=== PATIENT | female | born 1945 | race Caucasian/White ===

== ENCOUNTER 2022-06-08 14:01 | Outpatient (CLI) | payer MEDICARE, OTHER, SELFPAY ==
[2022-06-08 17:10] LABS: Albumin* 4.3 g/dL (3.3-5.0)
[2022-06-08 17:11] LABS: Chloride* 108 mmol/L (96-114); Potassium* 4.4 mmol/L (3.6-5.1); Sodium* 142 mmol/L (135-149)
[2022-06-08 17:13] LABS: Bilirubin Total* 0.4 mg/dL (0.1-1.5); Carbon Dioxide* 26 mmol/L (20-32); Cholesterol* 226 mg/dL (90-199); Creatinine* 0.8 mg/dL (0.5-1.5); Estimated Glomerular Filt Rate 76 ml/min
[2022-06-08 17:14] LABS: Alanine Aminotransferase* 19 U/L (4-35); Alkaline Phosphatase* 95 U/L (40-150); Aspartate Amino Transferase* 24 U/L (12-35); Blood Urea Nitrogen* 19 mg/dL (7-30); Calcium* 9.9 mg/dL (8.4-10.6); Glucose* 92 mg/dL (60-115); Total Protein* 6.5 g/dL (6.0-8.3); Triglycerides* 200 mg/dL (40-149)
[2022-06-08 17:15] LABS: HDL Cholesterol* 48 mg/dL (>=50); LDL Cholesterol Calculated 138 mg/dL (<100)
== END 2022-06-08 14:02 | disposition home or self-care (01) ==
PROVIDERS: PCP Internal Medicine; Visit Provider Internal Medicine
DX: R00.2 Palpitations (principal); I10 Essential (primary) hypertension; E66.9 Obesity, unspecified; Z13.6 Encounter for screening for cardiovascular disorders
CPT/HCPCS: 80053; 80061; 84443

== ENCOUNTER 2022-11-17 14:30 | Outpatient (RCR) | payer MEDICARE, OTHER, SELFPAY ==
--- NOTE | 2022-11-10 08:11 | PT.OPEX ---
PT [place] Outpatient Eval PT [facility] Outpatient Eval Start: 11/09/22 13:24 Freq: Status: Active Protocol: Document 11/09/22 13:24 ENM (Rec: 11/09/22 16:38 ENM [id number]) E-signed By Alina Calloway, DPT Physical Therapy Outpatient Evaluation Insurance Information Recert Due Date 02/01/23 Insurance Name Medicare B Medical Diagnosis age related physical disability Treating Diagnosis deconditioning, impaired gait, impaired balance, decreased LE strength Referring MD Youssef Subjective Subjective Patient presents to PT for complaints of weakness and fatigue that have been present for a while. States that today she is feeling very tired and weak. Her days consist of mainly sitting as she fatigues very easily. Does have a history for MS but is not medically managed for it, she plans to bring this up to her primary care. Also reports difficulty with urinary incontinence. She reports a history of falls with her most recent one being a couple of days ago. She was putting a cover on the chair the other day and with turning she fell. Once she fell she was not able to get up and had to call her grandson to help her. She attributes her falls to being weak and feeling off balance. Does feel dizziness at times but that does not precipitate her falls. She tries to be very careful with mobility, uses a 4WW at all times. States that her feet are partially numb and she can't feel them very well. Walking and standing is very limited. Was seen by MD recently for heart palpitations and was put on atenolol for PVCs. Primary complaint is her levels of fatigue, even putting on her socks is exhausting. Her goal is to be able to get off the floor independently if she does fall. Currently lives with her daughter who is on the autism spectrum very high functioning but not able to physically assist the patient off the floor. PMHx: torn L ACL from a fall, PVCs, depression, HTN, arthritis, osteoporosis, fibromylagia. R knee replacement, lipedema, MS Current Work Status Retired Precautions Treatment Precautions/Contraindications PVC Objective Other/Pertinent Objective ROM: able to achieve figure 4 hip positioning in sitting with assist of B UE strength: 5x STS 29.39s , very poor eccentric control with sitting , heavy use of arms, slow to get all the way up hip flexors L 3+/5 R 4-/5 knee extensors 4-/5 B ankle DF 3+/5 B palpation/joint mobility: no tenderness to light touch. Sensation intact to quick screen 10/10 B but patient reporting numbness and really having to focus to perform gait/balance: Patient ambulates with slow pace, decreased foot clearance , decreased step length with use of 4WW. Patient fatigued after 50' of ambulation with SOB TUG 26.25s with 4WW Other: Patient with moderate swelling not pitting in bilateral LE over dorsum of foot/calf/ ankles Functional Test Performed & Score 5x STS 29.39s , very poor eccentric control with sitting , heavy use of warms, slow to get all the way up TUG 26.25s with 4WW Assessment Assessment/Impression Patient is a 77 year old female presenting with weakness and fatigue. Their primary complaint is of limited endurance for daily mobility and ADLS. Patient has a complex medical history that includes MS, lipedema, hx of left ACL tear treated with conservative care and fibromyalgia. Upon assessment patient displays decreased global bilateral LE strength. Functional LE strength and endurance for STS is also limited patient requiring 29. 39s to perform 5xSTS, age matched norm is 12.6s. TUG scores indicate that patient is a fall risk. She is able to tolerate 50' of ambulation with 4WW before being limited by fatigue and SOB. Heidi would greatly benefit from skilled PT to address impairments stated above in order to progress activity tolerance for performing self cares/ADLs and functional mobility. Primary Functional Limitations walking, standing, putting on socks Plan of Care Rehabilitation Potential Fair Physical Therapy Goals In 12-15 visits: 1. Patient will be IND with HEP and self management of symptoms 2. Patient will improve TUG score from 26.25 to 22.25s or less (MDC 4) to demonstrate improvements in balance/ stability 3. Patient will improve 5x STS from 29.39s to 25.39s (MDC 4s ) to demonstrate improvement in LE functional strength 4. Patient will be able to put on her socks in the morning in one attempt with self reported minimal difficulty to demonstrate improvements in ADLs 5. Patient will be able to walk 85' with 4WW and no SOB after to demonstrate improvements in ambulation tolerance Coordination/Communication With Referral Source Treatment Plan/Direct Interventions Gait Training,Joint Mobilization,Manual Therapy, Neuromuscular Re-ed,Self-Care/ Home Management,Therapeutic Activities,Therapeutic Exercises Frequency/Duration 2x a week for 6 weeks, decreasing frequency depending on progress for an additional 4-5 visits Patient Will Be Discharged From Therapy Completion of LTG(s), Independent w/HEP Evaluation Billing Untimed Code Treatment Minutes 35 Complexity Moderate Certification Information Initial Certification Date 11/09/22 Ending Certification Date 02/01/23 Provider Signature Shows Agreement With POC & Medical Necessity Physician Signature & Date Requested Please Sign/Date Here Physician Comment/Change : Physician NPI Number #
== END 2023-02-21 14:50 | disposition home or self-care (01) ==
PROVIDERS: PCP Internal Medicine; Visit Provider Internal Medicine
DX: R54 Age-related physical debility (principal); Z51.89 Encounter for other specified aftercare
CPT/HCPCS: 97110; 97162

== ENCOUNTER 2023-03-28 15:51 | Outpatient (CLI) | payer MEDICARE, OTHER, SELFPAY ==
--- NOTE | 2023-03-28 16:15 | CRLHL7_ITS ---
For Patients: As a result of the Cures Act, medical imaging exams and procedure reports are released immediately into your electronic medical record. You may view this report before your referring provider. If you have questions, please contact your health care provider. INDICATION: Followup total knee arthroplasty TECHNIQUE: Knee radiograph 4 views right COMPARISON: None FINDINGS: Bone: No acute fractures or aggressive bone lesions are identified. Moderate diffuse osteopenia is noted. Joint: The patient is status post a total knee arthroplasty with patellar resurfacing. No radiographic evidence of asymmetric polyethylene wear, prosthetic loosening or infection is seen. No significant knee effusion is seen. Soft tissue: Unremarkable. No radiopaque foreign bodies are seen. IMPRESSION: 1. There is an unremarkable appearance of the knee arthroplasty. Dictated by: Demar Nicholson MD @ 03/29/2023 12:57:36 (Electronically Signed)
--- NOTE | 2023-03-28 16:15 | CRLHL7_ITS ---
For Patients: As a result of the Century Cures Act, medical imaging exams and procedure reports are released immediately into your electronic medical record. You may view this report before your referring provider. If you have questions, please contact your health care provider. INDICATION: Followup total knee arthroplasty TECHNIQUE: Knee radiograph 1 view bilateral COMPARISON: None FINDINGS: Bone: No acute fractures or aggressive bone lesions are identified. Joint: The patient is status post a right total knee arthroplasty with patellar resurfacing. Mild joint narrowing seen in the medial and lateral compartments of the left knee. The presence of an effusion and the patellofemoral compartments cannot be assessed on frontal view. Soft tissue: Unremarkable. No radiopaque foreign bodies are seen. IMPRESSION: 1. There is an unremarkable appearance of the knee arthroplasty. Dictated by: Demar Nicholson MD @ 03/29/2023 12:58:34 (Electronically Signed)
== END 2023-03-28 15:52 | disposition home or self-care (01) ==
PROVIDERS: PCP Internal Medicine; Visit Provider Orthopaedic Surgery
DX: Z96.651 Presence of right artificial knee joint (principal)
CPT/HCPCS: 73562; 73565

== ENCOUNTER 2023-04-07 09:47 | Outpatient (CLI) | payer MEDICARE, OTHER, SELFPAY ==
--- NOTE | 2023-04-07 09:45 | CRLHL7_ITS ---
For Patients: As a result of the Cures Act, medical imaging exams and procedure reports are released immediately into your electronic medical record. You may view this report before your referring provider. If you have questions, please contact your health care provider. DIAGNOSTIC BILATERAL BREAST MAMMOGRAM WITH COMPUTER-AIDED DETECTION AND TOMOSYNTHESIS CLINICAL HISTORY: LEFT breast pain. COMPARISON: 07/08/2021, 06/30/2021. TECHNIQUE: Digital BILATERAL mammogram in 4 projections. BREAST COMPOSITION: The breasts are almost entirely fatty. FINDINGS: 3D CC/MLO BILATERAL mammogram images submitted. No suspicious masses or architectural distortion. No suspicious calcifications or adenopathy. IMPRESSION: Normal BILATERAL mammograms. No evidence of malignancy. RECOMMENDATIONS: Annual BILATERAL screening mammography. BI-RADS Category 1: Negative A lay language report of this examination will be provided to the patient. Dictated by Javier Suazo MD @ 04/07/2023 10:50:55 AM PT/Dictated by: Javier Suazo MD @ 04/07/2023 10:50:00 AM (Electronically Signed)
== END 2023-04-07 09:48 | disposition home or self-care (01) ==
LOC: MAMMO 09:48
PROVIDERS: PCP Internal Medicine; Visit Provider Internal Medicine
DX: N64.4 Mastodynia (principal)
CPT/HCPCS: 77066; G0279

== ENCOUNTER 2023-08-11 17:42 | Outpatient (REF) | payer MEDICARE, OTHER, SELFPAY ==
[2023-08-11 20:13] LABS: Basophils Absolute Auto 0.03 K/uL (0.00-0.30); Basophils Percent Auto 0.4 % (0.0-3.0); Eosinophils Absolute Auto 0.21 K/uL (0.00-0.50); Eosinophils Percent Auto 2.6 % (0.0-7.0); Hematocrit 46.7 % (33.0-51.0); Hemoglobin* 14.7 gm/dL (12.0-16.0); Immature Granulocytes Abs Auto 0.01 K/uL (0.00-0.30); Immature Granulocytes Pct Auto 0.1 %; Lymphocytes Absolute Auto 2.99 K/uL (0.90-2.90); Lymphocytes Percent Auto 36.4 % (20-44); Mean Corpuscular HGB Conc 32 gm/dL (32-36); Mean Corpuscular Hemoglobin 31 pg (26-34); Mean Corpuscular Volume 99 fL (80-100); Monocytes Percent Auto 8.8 % (0.0-11.0); Neutrophils Absolute Auto 4.26 K/uL (1.7-7.0); Neutrophils Percent Auto 51.7 % (42.0-72.0); Platelet Count* 248 K/uL (140-440); RDW Coefficient of Variation % 13.9 % (11.5-15.5); White Blood Count* 8.22 K/uL (4.50-11.00)
[2023-08-11 20:15] LABS: Albumin* 4.3 g/dL (3.3-5.0)
[2023-08-11 20:18] LABS: Alanine Aminotransferase* 31 U/L (4-35); Aspartate Amino Transferase* 32 U/L (12-35); Creatinine* 0.9 mg/dL (0.5-1.5); Estimated Glomerular Filt Rate 65 ml/min
[2023-08-11 20:49] LABS: Slide Review Reflex No
== END 2023-08-11 17:43 | disposition home or self-care (01) ==
LOC: NPINS 17:42
PROVIDERS: PCP Internal Medicine; Visit Provider Internal Medicine Rheumatology
DX: M06.9 Rheumatoid arthritis, unspecified (principal); Z79.899 Other long term (current) drug therapy
CPT/HCPCS: 80048; 82040; 82565; 84450; 84460; 85025

== ENCOUNTER 2024-02-03 12:40 | Outpatient (CLI) | payer MEDICARE, OTHER, SELFPAY ==
--- OUTSIDE RECORDS SUMMARY | 2024-02-03 12:49 | XMS_ITS | Clinical Summary ---
Author Organization [facility] Address [place], [place] [address] Care Team Providers Care Senior Accounting Manager Name Role Phone Aminata Youssef MD Primary Care Provider [phone] Allergies Active Allergy Reactions Criticality Noted Date Comments Dust Mites *Unknown - Follow up needed 05/12/2016 Milk Other - Describe In Comment Field 12/01/2018 foggy and tired Mold *Unknown - Follow up needed 05/12/2016 Unlisted Allergen (Include Detail In Comments) *Unknown - Follow up needed 05/12/2016 Trees Tree And Shrub Pollen *Unknown 11/19/2013 Medications Medication Sig Dispensed Refills Start Date End Date Status GINKGO BILOBA (GINKOBA ORAL) Twice daily Active ASCORBIC ACID (VITAMIN C ORAL) Take 4,000 mg by mouth 2 times daily. Active AMLODIPINE BESYLATE/BENAZEPRIL (AMLODIPINE 10 MG AND BENAZEPRIL 20 MG, LOTREL,) Take 1 capsule by mouth once daily. Active buPROPion (WELLBUTRIN SR) 150 mg Sustained-Release tablet Take 150 mg by mouth 2 times daily. Active MAGNESIUM OXIDE/MAG AA CHELATE (MAGNESIUM, OXIDE/AA CHELATE, ORAL) Take 1,000 mGy by mouth once daily. Active cholecalciferol, vitamin D3, 4,000 unit cap Take 1 capsule by mouth 2 times daily. Active EVENING PRIMROSE OIL (EVENING PRIMROSE ORAL) Take 1,300 mg by mouth once daily. Active folic acid 1 mg tablet Take 4 mg by mouth once daily. 05/10/2022 Active fexofenadine (JOSE EDUARDO) 180 mg tablet Take 180 mg by mouth once daily. Do not crush or chew. 0 05/31/2022 Active methotrexate (RHEUMATREX) 2.5 mg tabletIndications:Rhe umatoid arthritis of multiple sites with negative rheumatoid factor (HC) TAKE 7 TABLETS BY MOUTH ONCE WEEKLY 28 Tablet 07/08/2023 Active Active Problems Problem Noted Date Diagnosed Date Urinary incontinence 05/31/2022 Obesity with body mass index greater than 30 Hyperparathyroidism 05/31/2022 Hyperlipidemia with target LDL less than 130 Overview: Diagnosis updated by automated process. Provider to review and confirm. History of parathyroidectomy 05/31/2022 History of cholecystectomy 05/31/2022 History of section 05/31/2022 Frailty syndrome in geriatric patient 05/31/2022 Major depressive disorder, recurrent episode, mo derate 01/31/2020 Anxiety 01/31/2020 Unsteadiness on feet 12/15/2018 Age-related osteoporosis wit hout current pathological fracture 12/15/2018 Overview: Problem list name updated by automated process. Provider to review Rheumatoid arthritis 12/15/2018 Presence of right artificial knee joint 12/16/19 Palpitations 12/15/2018 Essential hypertension 12/15/2018 Gastro-esophageal reflux disease without esophag itis 12/15/2018 Encounter for other specified aftercare 12/16/19 19 Overview: Discussed advance care planning with patient; information given to patient to review. 01/19/2012 YUE (obstructive sleep apnea) 12/31/2016 Overview: Home Sleep Apnea test at wt 160lbs 12/30/2016 AHI 14.3 Idiopathic progressive polyneuropathy 10/05/2016 Xerosis of skin 05/07/2015 SK (seborrheic keratosis) 05/07/2015 Lentigines 05/07/2015 History of multiple sclerosis 05/08/2014 Hair thinning 05/08/2014 Osteoarthritis of left knee 03/29/2013 Knee pain, left 03/29/2013 Pes anserine bursitis, bilateral 03/29/2013 Right knee pain 03/29/2013 Hypercalcemia 01/19/2012 Difficulty in walking(719.7) 03/30/2011 OA (osteoarthritis) of knee, right 07/28/2010 ACL tear, left knee 07/28/2010 Overview: Has elected to treat conservatively for time being Sprain of MCL (medial collateral ligament) of le ft knee 07/28/2010 Resolved Problems Problem Noted Date Diagnosed Date Resolved Date Medial meniscus tear, left knee 07/28/2010 01/20/2012 Overview: Has elected to treat conservatively for time being, can consider surgery if symptomatic Family History Medical History Relation Name Comments Cancer Father brain cancer Heart Disease Mother Hypertension Mother Thyroid Disease Mother hypothyroid Relation Name Status Comments Father Mother Social History Tobacco Use Types Packs/Day Years Used Date Smoking Tobacco: Former Smokeless Tobacco: Never Tobacco Cessation:Counseling Given: Yes Comments:smoked a few years while in college Alcohol Use Standard Drinks/Week Comments No 0 (1 standard drink = 0.6 oz pur e alcohol) Social Connections Answer Date Recorded Frequency of Communication with Friends and Fami ly Not on file 05/31/2022 Sex and Gender Information Value Date Recorded Sex Assigned at Not on file Gender Identity Not on file Sexual Orientation Not on file Obstetrics History Last Filed Vital Signs Vital Sign Reading Time Taken Comments Blood Pressure 128/75 05/31/2022 12:55 PM CDT Pulse 92 05/31/2022 12:55 PM CDT Temperature 36.4 ??C (97.6 ??F) 09/01/2016 9:00 AM CS T Respiratory Rate 16 09/01/2016 10:42 AM PICKLER HELPER Oxygen Saturation 96% 05/31/2022 12:55 PM CDT Inhaled Oxygen Concentration - - Weight 89.4 kg (197 lb) 05/31/2022 12:55 PM CDT w/ shoes Height 166.4 cm (5' 5.5) 08/31/2016 9:57 AM PICKLER HELPER Body Mass Index 32.28 08/31/2016 9:57 AM PICKLER HELPER Plan of Treatment Health Maintenance Due Date Last Done Comments Tdap 1955 Depression screening for age 12+ 1956 BMI (ht and wt on same day) for age 18+ 1962 Hepatitis C screening for ag e 18-79 1962 Zoster (shingles) series for age 50+ (1 of 2) 1963 Tetanus booster 1964 DEXA/DXA scan for age 65+ 2009 Medicare Wellness for age 65+ 2009 Pneumococcal series for age 65+ (1 of 1 - PCV) 2009 COVID-19 vaccine series (2022-24 season) 2023 05/30/2022, 01/24/2022, 05/12/2021, Additional history exists Influenza for age 65+ 04/08/2024 Medical Devices Implanted Type Area Ground Water Pump Installer Device Identifier Shelf Expiration Date Model / Serial / Lot Lens Iol Zcb00 17.0 - [id number] Implanted:Qty: 1 on 05/14/2016 by Kiran Chase MD at [facility] Left: [employer] 12/17/2019 ZCB00# / [id number] / Iol [place] +17.5 Tecnis Zcb00 - [id number] Implanted:Qty: 1 on 09/01/2016 by Kiran Chase MD at [facility] Right: [employer] 05/02/2020 ZCB00# / [id number] / Advance Directives * Full Code (Latest Code Status on File) Date Activated Date Inactivated Comments 09/01/2016 8:43 AM 09/01/2016 1:26 PM Question Answer Comments Code Status Discussion: Not Discussed * Full Code Date Activated Date Inactivated Comments 05/14/2016 9:47 AM 05/14/2016 2:50 PM Question Answer Comments Code Status Discussion: Not Discussed Care Teams Senior Accounting Manager Relationship Specialty Start Date End Date Aminata Youssef MD [address] [place] [id number] PCP - General Internal Medicine 05/27/21
--- OUTSIDE RECORDS SUMMARY | 2024-02-03 12:50 | XMS_ITS | Encounter Summary ---
Author Organization [facility] Address [address] [place] [address] Care Team Providers Care Vegetable Tier Name Role Phone Bettye Gonzales MD Unavailable + Bonny Cooley MD Primary Care Provider [phone] Antony Chakraborty MD Unavailable Mateo Cheema MD Unavailable Ermias Colón MD Unavailable Pam Hernandez MD Unavailable Jaime Grover MD Unavailable Toni Sheth MD Unavailable [phone] Bertram Elizabeth MD Unavailable Bonny Cooley MD Unavailable [phone] Aminata Youssef MD Primary Care Provider Bertram Elizabeth MD Unavailable [phone] Alex Johnson MD Unavailable [phone] Bonny Cooley MD Unavailable [phone] Bertram Elizabeth MD Unavailable Bertram Elizabeth MD Unavailable Encounter Details Date Type Department Care Team (Late st Contact Info) Description 09/23/2020 [facility] Medical Advice [facility] [address] [id number] Toni Del Angel MD [address] [place] [address] Social History Tobacco Use Types Packs/Day Years Used Date Smoking Tobacco: Former Cigarettes 2 3 0 04/23/1976 - 12/17/1977 Smokeless Tobacco: Never Alcohol Use Standard Drinks/Week Comments No 0 (1 standard drink = 0.6 oz pur e alcohol) PHQ-2 Answer Date Recorded PHQ-2 Score 4 01/31/2020 Sex and Gender Information Value Date Recorded Sex Assigned at Female 08/28/2018 12:23 AM ENROLLMENT SPECIALIST Gender Identity Female 08/28/2018 12:23 AM ENROLLMENT SPECIALIST Sexual Orientation Straight 10/11/2019 2: 51 PM ENROLLMENT SPECIALIST documented as of this encounter Plan of Treatment Not on file documented as of this encounter Visit Diagnoses Not on filedocumented in this encounter Additional Health Concerns Assessment Noted Time PHQ-9 Depression Total Score: 11 020 2:18 PM CDT documented as of this encounter Care Teams Vegetable Tier Relationship Specialty Start Date End Date Bonny Cooley MD [address] [place] [address] PCP - General Family Practice 09/30/15 06/02/21 Aminata Youssef MD [facility] [address] [place] [address] PCP - General Internal Medicine 06/03/21 Bettye Gonzales MD Internal Medicine 04/10/15 Antony Chakraborty MD [address] [address] INTERNAL MEDICINE - ENDOCRINOLOGY, DIABETES & METABOLISM 11/13/15 Mateo Cheema MD [address] [address] Internal Medicine 08/06/16 Ermias Colón MD [address] [address] Referring Physician Neurology 09/23/16 Pam Hernandez MD [address] [place] [address] [address] [place], [place] [address] Assigned Behavioral Health Provider 05/30/20 08/01/21 Jaime Grover MD [address] [place] [address] Assigned Gastroenterology Provider 05/30/20 11/14/21 Toni Sheth MD [address] [address] Assigned Surgical Provider 05/30/2006/28 Bertram Elizabeth MD [address] [id number] Assigned PCP 07/27/20 04/25/21 [place] [address] [place] [address] [address] [place], [place] [id number] Assigned PCP 04/26/21 08/15/21 Bertram Elizabeth MD [address] [place] [address] Assigned PCP 08/16/21 10/24/21 Alex Johnson MD [address] [place] [address] Assigned Rheumatology Provider 10/18/21 04/15/23 Bonny Cooley MD [address] [place] [address] Assigned PCP 10/25/21 04/02/22 Bertram Elizabeth MD [address] [place] [address] Assigned PCP 04/03/22 07/23/22 Bertram Elizabeth MD [address] [place] [address] Assigned PCP 10/02/22 04/29/23 documented as of this encounter
--- OUTSIDE RECORDS SUMMARY | 2024-02-03 12:50 | XMS_ITS | Encounter Summary ---
Author Organization [facility] Address [address] [place] [address] Care Team Providers Care Asw Specialist Name Role Phone Bettye Gonzales MD Unavailable + Bonny Cooley MD Primary Care Provider [phone] Antony Chakraborty MD Unavailable Mateo Cheema MD Unavailable [phone] Ermias Colón MD Unavailable Bonny Cooley MD Unavailable Pam Hernandez MD Unavailable [phone] Lázaro Horowitz MD Unavailable Jaime Grover MD Unavailable Toni Sheth MD Unavailable [phone] Toni Sheth MD Unavailable [phone] Bertram Elizabeth MD Unavailable Bonny Cooley MD Unavailable [phone] Aminata Youssef MD Primary Care Provider Bertram Elizabeth MD Unavailable [phone] Alex Johnson MD Unavailable [phone] Bonny Cooley MD Unavailable [phone] Bertram Elizabeth MD Unavailable Bertram Elizabeth MD Unavailable [phone] Encounter Details Date Type Department Care Team (Late st Contact Info) Description 07/04/2020 [facility] [address] [address] Jaime Grover MD [address] [place] [address] Social History Tobacco Use Types Packs/Day Years Used Date Smoking Tobacco: Former Cigarettes 2 3 0 04/23/1976 - 12/17/1977 Smokeless Tobacco: Never Alcohol Use Standard Drinks/Week Comments No 0 (1 standard drink = 0.6 oz pur e alcohol) PHQ-2 Answer Date Recorded PHQ-2 Score 4 01/31/2020 Sex and Gender Information Value Date Recorded Sex Assigned at Female 08/28/2018 12:23 AM ORDERLIES TEACHER Gender Identity Female 08/28/2018 12:23 AM ORDERLIES TEACHER Sexual Orientation Straight 10/11/2019 2: 51 PM ORDERLIES TEACHER COVID-19 Exposure Response Date Recorded In the last month, have you been in contact with someone who was confirmed or suspected to have Coronavirus / COVID-19? No / Unsure 06/23/2020 10:33 AM ORDERLIES TEACHER documented as of this encounter Plan of Treatment Not on file documented as of this encounter Visit Diagnoses Not on filedocumented in this encounter Additional Health Concerns Infection Onset Date Last Indicated Resolved Time COVID-19 06/23/2020 06/23/2020 07/14/2020 11:4 0 PM ORDERLIES TEACHER Recovered COVID 07/08/2020 07/08/2020 09/21/2020 1 1:39 PM ORDERLIES TEACHER Assessment Noted Time PHQ-9 Depression Total Score: 11 020 2:18 PM CDT documented as of this encounter Care Teams Asw Specialist Relationship Specialty Start Date End Date Bonny Cooley MD [address] [place] [address] PCP - General Family Practice 09/30/15 06/02/21 Aminata Youssef MD [facility] [address] [place] [address] PCP - General Internal Medicine 06/03/21 Bettye Gonzales MD Internal Medicine 04/10/15 Antony Chakraborty MD [address] [address] INTERNAL MEDICINE - ENDOCRINOLOGY, DIABETES & METABOLISM 11/13/15 Mateo Cheema MD [address] [address] Internal Medicine 08/06/16 Ermias Colón MD [address] [address] Referring Physician Neurology 09/23/16 Bonny Cooley MD [address] [address] Assigned PCP 10/05/15 07/26/20 Pam Hernandez MD [address] [facility] [place] [address] Assigned Behavioral Health Provider 05/30/20 08/01/21 UdLázaro martínez MD [facility] [address] [place] [address] Assigned Rheumatology Provider 05/30/20 07/19/20 Jaime Grover MD [address] [place] [address] Assigned Gastroenterology Provider 05/30/20 11/14/21 Toni Sheth MD [address] [id number] Assigned Pediatric Specialist Provider 05/30/20 09/07/20 Toni Sheth MD [address] 720235 Assigned Surgical Provider 05/30/2006/28 [place] [address] [place] [address] [id number] Assigned PCP 07/27/20 04/25/21 [place] [address] [place] [address] [id number] Assigned PCP 04/26/21 08/15/21 [place] [address] [place] [address] [id number] Assigned PCP 08/16/21 10/24/21 Alex Johnson MD [address] [place] [address] [id number] Assigned Rheumatology Provider 10/18/21 04/15/23 Bonny Cooley MD [address] [place] [address] Assigned PCP 10/25/21 04/02/22 [place] [address] [place] [address] Assigned PCP 04/03/22 07/23/22 [place] [address] [place] [address] Assigned PCP 10/02/22 04/29/23 documented as of this encounter
--- OUTSIDE RECORDS SUMMARY | 2024-02-03 12:50 | XMS_ITS | Encounter Summary ---
Author Organization [facility] Address [address] [place] [address] Care Team Providers Care Breaster Name Role Phone Bettye Gonzales MD Unavailable + Bonny Cooley MD Primary Care Provider [phone] Antony Chakraborty MD Unavailable Mateo Cheema MD Unavailable [phone] Ermias Colón MD Unavailable Bonny Cooley MD Unavailable [phone] Pam Hernandez MD Unavailable [phone] Lázaro Horowitz MD Unavailable Jaime Grover MD Unavailable Toni Sheth MD Unavailable [phone] Toni Sheth MD Unavailable [phone] Bertram Elizabeth MD Unavailable Bonny Cooley MD Unavailable [phone] Aminata Youssef MD Primary Care Provider [phone] Bertram Elizabeth MD Unavailable Alex Johnson MD Unavailable Bonny Cooley MD Unavailable [phone] Bertram Elizabeth MD Unavailable Bertram Elizabeth MD Unavailable Encounter Details Date Type Department Care Team (Late st Contact Info) Description 07/02/2020 [facility] [address] 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 No / Unsure 06/23/2020 10:33 AM GRINDING MACHINE OPERATOR PORTABLE documented as of this encounter Plan of Treatment Not on file documented as of this encounter Visit Diagnoses Not on filedocumented in this encounter Additional Health Concerns Infection Onset Date Last Indicated Resolved Time COVID-19 06/23/2020 06/23/2020 07/14/2020 11:4 0 PM GRINDING MACHINE OPERATOR PORTABLE Recovered COVID 07/08/2020 07/08/2020 09/21/2020 1 1:39 PM GRINDING MACHINE OPERATOR PORTABLE Assessment Noted Time PHQ-9 Depression Total Score: 11 020 2:18 PM CDT documented as of this encounter Care Teams Breaster Relationship Specialty Start Date End Date Bonny Cooley MD [address] [place], [place] [phone] PCP - General Family Practice 09/30/15 06/02/21 Aminata Youssef MD [facility] [address] [place] [address] PCP - General Internal Medicine 06/03/21 Bettye Gonzales MD Internal Medicine 04/10/15 Antony Chakraborty MD [address] [address] INTERNAL MEDICINE - ENDOCRINOLOGY, DIABETES & METABOLISM 11/13/15 Mateo Cheema MD [address] 174005 Internal Medicine 08/06/16 Ermias Colón MD [address] [address]36[address] Referring Physician Neurology 09/23/16 Bonny Cooley MD [address] [phone] Assigned PCP 10/05/15 07/26/20 Pam Hernandez MD [address] [place] [address] [address] [place] 640271 Assigned Behavioral Health Provider 05/30/20 08/01/21 Lázaro Horowitz MD [facility] [address] [place], [place] [address] Assigned Rheumatology Provider 05/30/20 07/19/20 Jaime Grover MD [address] [place] [address] Assigned Gastroenterology Provider 05/30/20 11/14/21 Toni Sheth MD [address] [address] Assigned Pediatric Specialist Provider 05/30/20 09/07/20 Toni Sheth MD [address] [address] Assigned Surgical Provider 05/30/2006/28 Bertram Elizabeth MD [address] [place] [address] Assigned PCP 07/27/20 04/25/21 Bonny Cooley MD [address] [place] [address] Assigned PCP 04/26/21 08/15/21 Bertram Elizabeth MD [address] [place] [address] Assigned PCP 08/16/21 10/24/21 Alex Johnson MD [address] [place] [address] Assigned Rheumatology Provider 10/18/21 04/15/23 Bonny Cooley MD [address] [place] [address] Assigned PCP 10/25/21 04/02/22 Bertram Elizabeth MD [address] [place] [address] Assigned PCP 04/03/22 07/23/22 Bertram Elizabeth MD [address] [place] [address] Assigned PCP 10/02/22 04/29/23 documented as of this encounter
--- OUTSIDE RECORDS SUMMARY | 2024-02-03 12:50 | XMS_ITS | Referral Summary ---
Author Organization [facility] Address [address] [place] [address] Care Team Providers Care Asparagus Cutter Name Role Phone Bettye Gonzales MD Unavailable + Antony Chakraborty MD Unavailable Mateo Cheema MD Unavailable Ermias Colón MD Unavailable Aminata Youssef MD Primary Care Provider Encounters Date Type Department Care Team Description 12/13/2023 MyC Medical Advice [facility] [address] [address] [facility] 12/13/2023 Telephone [facility] [address] [address] Alex Johnson MD Call To Schedule Appointment from Last 3 Months Allergies Active Allergy Reactions Criticality Noted Date Comments Dust Mites 11/19/2013 Milk (Cow) Other (See Comments) 12/01/2018 foggy and tired Mold 11/19/2013 Pollen Extract 12/01/2018 Other reaction(s): Headache Trees 11/19/2013 Medications Medication Sig Dispensed Refills Start Date End Date Status Evening [place] Oil CAPS Take 1,300 mg by mouth 2 times daily. Active Glucosamine-Chondroi t-Vit C-Mn (GLUCOSAMINE-CHONDRO ITIN) TABS Take 1,500 mg by mouth 2 times daily. 200 Chrondrointin. Active fish oil-omega-3 fatty acids (OMEGA 3) 1000 MG capsule Take by mouth See Admin Instructions. DHA 900mg/EPA 180mg daily Active Cholecalciferol (VITAMIN D-3 PO) Take 4,000 mg by mouth 2 times daily. Active MAGNESIUM OXIDE PO Take 500 mgy by mouth 2 times daily Active NONFORMULARY Takes MElaleuca vitality total multi vit twice daily (130 mg) Active order for DMEIndications:Idiop athic progressive polyneuropathy Equipment being ordered: Single end Folding cane. 1 each 10/12/2016 Active order for DMEIndications:Ortho static hypotension Equipment being ordered: SUDARSHAN stockings 20-30 mmHG 1 Device 02/24/2018 Active order for DMEIndications:Lymph edema of both lower extremities Equipment being ordered: knee high or thigh high compression stockings, 15-20, 20-30 or 30-40 mmgh, night time bandaging compression alternative, compression bandaging supplies 4 each 4 05/12/2018 Active GINKGO BILOBA EXTRACT PO Take 1 tablet by mouth daily Active Cranberry 1000 MG CAPS Take 1,000 mg by mouth 2 times daily Active Selenium 200 MCG CAPS Take 200 mcg by mouth 2 times daily Active Multiple Vitamins-Minerals (ZINC PO) Take 1 tablet by mouth 2 times daily Active vitamin C (ASCORBIC ACID) 1000 MG TABS Take 1,000 mg by mouth 2 times daily Active celecoxib (CELEBREX) 100 MG capsuleIndications:O steoarthritis, unspecified osteoarthritis type, unspecified site TAKE ONE CAPSULE BY MOUTH EVERY EVENING 90 capsule 04/07/2020 Active Additional Information Patient not taking.Reported on 10/09/2021 nystatin (MYCOSTATIN) [id number] UNIT/GM external powderIndications:In tertrigo Apply topically 2 times daily as needed 60 g 04/11/2020 Active triamcinolone (KENALOG) 0.1 % pasteIndications:Can ker sores oral Take by mouth 2 times daily For up to a week. 5 g 04/23/2020 Active FLUoxetine (PROZAC) 20 MG capsuleIndications:M tab depressive disorder, recurrent episode, moderate (H) Take 1 capsule (20 mg) by mouth daily 90 capsule 1 11/11/2020 Active amLODIPine-benazepri l (LOTREL) 10-20 MG capsuleIndications:E ssential hypertension with goal blood pressure less than 140/90 TAKE ONE CAPSULE BY MOUTH DAILY 60 capsule 12/03/2020 Active buPROPion (WELLBUTRIN XL) 300 MG 24 hr tabletIndications:Divina tillman depressive disorder, recurrent episode, moderate (H) TAKE ONE TABLET BY MOUTH EVERY MORNING 90 tablet 12/09/2020 Active leucovorin (WELLCOVORIN) 5 MG tabletIndications:Rh eumatoid arthritis of multiple sites without rheumatoid factor (H) Take 1 tablet (5 mg) by mouth every 7 days Take the day after taking Methotrexate every week. For additional refills, please schedule a follow-up appointment at [phone] 12 tablet 01/27/2021 Active Additional Information Patient not taking.Reported on 10/09/2021 folic acid (FOLVITE) 1 MG tabletIndications:Rh eumatoid arthritis of multiple sites without rheumatoid factor (H) Take 4 tablets (4 mg) by mouth daily Please call to schedule follow-up with Dr Johnson. Thank you 360 tablet 07/13/2023 Active methotrexate 2.5 MG tabletIndications:Rh eumatoid arthritis of multiple sites without rheumatoid factor (H) Take 7 tablets (17.5 mg) by mouth every 7 days TAKE 7 TABLETS BY MOUTH EVERY WEEK - Oral 28 tablet 4 10/24/2023 Active Active Problems Problem Noted Date Diagnosed Date Major depressive disorder, recurrent episode, mo derate 01/31/2020 Anxiety 01/31/2020 Rhe[facility]oid [facility] without rheumatoid factor 04/12/2017 YUE (obstructive sleep apnea) 12/31/2016 Overview: Home Sleep Apnea test at wt 160lbs 12/30/2016 AHI 14.3 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 Provider to review Hypercalcemia 01/19/2012 ACL (anterior cruciate ligament) tear 10/24/2009 Gait difficulty 10/24/2009 Hyperparathyroidism (H24) Depression, major, recurrent (H24) Hypertension goal BP (blood pressure) < 140/90 Hyperlipidemia with target LDL less than 130 Overview: Diagnosis updated by automated process. Provider to review and confirm. Resolved Problems Problem Noted Date Diagnosed Date Resolved Date NO SHOW 03/06/2013 07/23/2013 Advanced directives, counseling/discussion 01/19/2012 01/23/2024 Overview: Discussed advance care planning with patient; information given to patient to review. 01/19/2012 Metatarsal fracture 10/08/2008 04/01/20 09 Hyperlipidemia LDL goal <160 07/05/2012 Immunizations Name Administration Dates Next Due Influenza (H1N1) 08/14/2009 Influenza (High Dose) 3 valent vaccine 9,08/07/2018,05/01/2015 Influenza (IIV3) PF 06/25/2008 Influenza Vaccine 65+ (Fluzone HD) 05/16/2020 Pneumo Conj 13-V (2010&after) 12/21/2017 Pneumococcal 23 valent 05/12/2011 TDAP Vaccine (Adacel) 12/21/2017 Zoster vaccine, live 05/12/2011 Social History Tobacco Use Types Packs/Day Years Used Date Smoking Tobacco: Former Cigarettes 2 3 0 04/23/1976 - 12/17/1977 Smokeless Tobacco: Never Tobacco Cessation:Counseling Given: Yes Alcohol Use Standard Drinks/Week Comments No 0 (1 standard drink = 0.6 oz pur e alcohol) PHQ-2 Answer Date Recorded PHQ-2 Score 4 01/31/2020 Adolescent Education Answer Date Record ed Getting School Help Needed Not on file 05/24 Sex and Gender Information Value Date Recorded Sex Assigned at Female 08/28/2018 12:23 AM [facility]OS[facility]ITAL [employer]ES [employer] ASSISTANT[employer] TEACHER Gender Identity Female 08/28/2018 12:23 AM [facility]ITAL [employer] ASSIST[employer] TEACHER Sexual Orientation Straight 10/11/2019 2: 51 PM H[facility]ITAL [employer] ASSIST[employer] TEACHER Last Filed Vital Signs Vital Sign Reading Time Taken Comments Blood Pressure 135/69 07/08/2020 10:47 AM [facility] [employer] ASSIST[employer] TEACHER Pulse 80 07/08/2020 10:47 AM [facility]ITAL [employer]ES [employer] ASSISTANTS TEACHER Temperature 37 ??C (98.6 ??F) 04/23/2020 4:29 PM CDT Respiratory Rate 25 07/08/2020 10:05 AM [facility]OS[facility]ITAL [employer]ES AND ASSISTANTS TEACHER Oxygen Saturation 98% 07/08/2020 10:49 AM [facility] [employer] AND ASSIST[employer]S TEACHER Inhaled Oxygen Concentration - - Weight 81.6 kg (180 lb) 05/14/2020 2:51 PM CDT Height 166.4 cm (5' 5.5) 05/14/2020 2:51 PM CDT Body Mass Index 29.5 05/14/2020 2:51 PM CDT Plan of Treatment Not on file Procedures Procedure Name Priority Date/Time Associated Diagnosis Comments COLONOSCOPY Routine 07/08/2020 8:56 AM H[facility]ITAL [employer] ASSIST[employer] TEACHER COMPREHENSIVE METABOLIC PANEL Routine 07/24/2019 3:29 PM H[facility] [employer] ASSIST[employer] TEACHER Other fatigue MA SCREENING DIGITAL BILATERAL Routine 08/16/2018 11:45 AM [facility] [employer] ASSIST[employer] TE[employer]ER Encounter for screening mammogram for breast cancer LIPID PROFILE Routine 12/21/2017 1:42 PM CDT Hyperlipidemia with target LDL less than 130 HEPATITIS C ANTIBODY Routine 04/12/2017 2:46 PM CDT Rheumatoid arthritis of multiple sites without rheumatoid factor (H) DX BONE DENSITY Routine 12/10/2016 5:01 PM CDT Osteoporosis from Last 3 Months or Most Recently Relevant to Health Maintenance Results * COLONOSCOPY (07/08/2020 8:56 AM HOSPITAL A[employer]ES AND ASSISTANTS TEACHER) [facility], [address] [address] [phone] ? Endoscopy Department Patient Name: Lowell Miller ?Procedure Date: 07/08/2020 8:56 AM ? Date of : 1945 ? Admit Type: Outpatient Age: 74 ? Room: #3 Gender: Female ?Note Status: Finalized Attending MD: Jaime Grover MD ?Total Sedation Time: Procedure: ? Colonoscopy Indications: ? Rectal bleeding, Constipation Providers: ? Jaime Grover MD Referring MD: ?Bonny Cooley Requesting Provider: Bonny Cooley Medicines: ? Midazolam 4 mg IV, Fentanyl 200 micrograms IV Complications: ? No immediate complications. Procedure: ? Pre-Anesthesia Assessment: ? - Prior to the procedure, a History and Physical was ? performed, and patient medications and allergies were ? reviewed. The patient is competent. The risks and ? benefits of the procedure and the sedation options and ? risks were discussed with the patient. All questions ? were answered and informed consent was obtained. Patient ? identification and proposed procedure were verified by ? the physician in the pre-procedure area. Mental Status ? Examination: alert and oriented. Airway Examination: ? normal oropharyngeal airway and neck mobility. ? Respiratory Examination: clear to auscultation. CV ? Examination: normal. Prophylactic Antibiotics: The ? patient does not require prophylactic antibiotics. Prior ? Anticoagulants: The patient has taken no previous ? anticoagulant or antiplatelet agents. ASA Grade ? Assessment: II - A patient with mild systemic disease. ? After reviewing the risks and benefits, the patient was ? deemed in satisfactory condition to undergo the ? procedure. The anesthesia plan was to use moderate ? sedation / analgesia (conscious sedation). Immediately ? prior to administration of medications, the patient was ? re-assessed for adequacy to receive sedatives. The heart ? rate, respiratory rate, oxygen saturations, blood ? pressure, adequacy of pulmonary ventilation, and ? response to care were monitored throughout the ? procedure. The physical status of the patient was ? re-assessed after the procedure. ? After obtaining informed consent, the colonoscope was ? passed under direct vision. Throughout the procedure, ? the patient's blood pressure, pulse, and oxygen ? saturations were monitored continuously. The Colonoscope ? was introduced through the anus and advanced to the ? cecum, identified by appendiceal orifice and ileocecal ? valve. The colonoscopy was performed without difficulty. ? The patient tolerated the procedure well. The quality of ? the bowel preparation was good (after lavage and ? aspiration). ? Findings: ? Hemorrhoids were found on perianal exam. ? A few medium-mouthed diverticula were found in the sigmoid colon. ? Non-bleeding internal hemorrhoids were found during retroflexion. The ? hemorrhoids were small. ? The exam was otherwise without abnormality on direct and retroflexion ? views. ? Moderate Sedation: ? Moderate (conscious) sedation was administered by the endoscopy nurse ? and supervised by the endoscopist. The patient's oxygen saturation, ? heart rate, blood pressure and response to care were monitored. Total ? physician intraservice time was 23 minutes. Impression: ?- Hemorrhoids found on perianal exam. ? - Diverticulosis in the sigmoid colon. ? - Non-bleeding internal hemorrhoids. ? - The examination was otherwise normal on direct and ? retroflexion views. ? - No specimens collected. ? - Rectal bleeding was likely related to hemorrhoids or ? other outlet bleeding in setting of constipation (now ? improved with bowel regimen). Recommendation: ?- Discharge patient to home (with escort). ? - Resume previous diet. ? - Continue present medications. ? - Given age she likely does not require a repeat ? colonoscopy in 10 years. ? __ Jaime Grover MD 07/08/2020 9:58:41 AM I was physically present for the entire viewing portion of the exam. Signature of teaching physician [id number] Grover MD Number of Addenda: 0 Note Initiated On: 07/08/2020 8:56 AM Scope In: Scope Out: RADIOLOGY RESULTS 07/08/2020 8:56 AM H[facility]ITAL [employer] ASSIST[employer] TEACHER Bonny Cooley MD PROCEDURES RADIOLOGY RESULTS * (ABNORMAL) Comprehensive metabolic panel (BMP + Alb, Alk Phos, ALT, AST, Total. Bili, TP) (07/24/2019 3:29 PM HOSPITAL [employer]ES AND ASSISTANTS TEACHER) Sodium 143 133 - 144 mmol/L 07/25/2019 9:58 AM H[facility]ITAL [employer] AND ASSISTANTS TEACHER [facility] Potassium 4.5 3.4 - 5.3 mmol/L 07/25/2019 9:58 AM [facility] Chloride 112(H) 94 - 109 mmol/L 07/25/2019 9:58 AM [facility] Carbon Dioxide 24 20 - 32 mmol/L 07/25/2019 10:31 AM [facility] Anion Gap 7 3 - 14 mmol/L 07/25/2019 10:31 AM [facility] Glucose 92 70 - 99 mg/dL 07/25/2019 10:31 AM [facility] Comment:Non Fasting Urea Nitrogen 19 7 - 30 mg/dL 07/25/2019 10:31 AM [facility] Creatinine 0.80 0.52 - 1.04 mg/dL 07/25/2019 10:31 AM [facility] GFR Estimate 72 >60 mL/min/{1 .73_m2} 07/25/2019 10:31 AM [facility] Comment: Non GFR Calc Starting 07/25/2018, serum creatinine based estimated GFR (eGFR) will be calculated using the Chronic Kidney Disease Epidemiology Collaboration (CKD-EPI) equation. GFR Estimate If Black 84 >60 mL/min/{1 .73_m2} 07/25/2019 10:31 AM [facility] Comment: GFR Calc Starting 07/25/2018, serum creatinine based estimated GFR (eGFR) will be calculated using the Chronic Kidney Disease Epidemiology Collaboration (CKD-EPI) equation. Calcium 9.9 8.5 - 10.1 mg/dL 07/25/2019 10:31 AM [facility] Bilirubin Total 0.3 0.2 - 1.3 mg/dL 07/25/2019 10:36 AM [facility] Albumin 3.8 3.4 - 5.0 g/dL 07/25/2019 10:36 AM [facility] Protein Total 6.8 6.8 - 8.8 g/dL 07/25/2019 10:36 AM [facility] Alkaline Phosphatase 97 40 - 150 U/L 07/25/2019 10:36 AM [facility] ALT 34 0 - 50 U/L 07/25/2019 10:36 AM [facility] [employer] ASSIST[employer] TE[employer]ER [facility] AST 21 0 - 45 U/L 07/25/2019 10:36 AM [facility] [employer]IST[employer] TE[employer]ER [facility] Blood specimen (specimen) 07/24/2019 3:29 PM [facility] [employer] ASSISTANT[employer] TEACHER 07/24/2019 3:30 PM [facility] ASSIST[employer] TE[employer]ER Bonny Cooley MD LAB - BLOOD ORDERABL ES [facility] [address] [place] [address] * *MA Screening Digital Bilateral (08/16/2018 11:45 AM HOSPITAL [employer] ASSISTANTS TEACHER) Anatomical Region Laterality Modality Breast Bilateral Mammography Impressions 08/17/2018 10:40 AM [facility]ITAL [facility] ASSIST[employer] TEACHER IMPRESSION: BI-RADS CATEGORY: 1 - ??NEGATIVE. RECOMMENDED FOLLOW-UP: Annual Mammography. The patient will be notified of the results. I have personally reviewed the examination and initial interpretation and I agree with the findings. YOSEPH PERALTA MD Narrative 08/17/2018 10:40 AM [facility] [employer] ASSIST[employer] TEACHER Examination: Bilateral digital screening mammography with computer aided detection. History: No symptoms, routine screening. Comparison: Diagnostic mammogram 05/09/2015. Screening mammogram 05/07/2015. BREAST DENSITY: Scattered fibroglandular densities.. Findings: No significant change. Bonny Cooley MD IMG MAMMOGRAPHY ORDE RABLES * (ABNORMAL) Lipid Profile (Chol, Trig, HDL, LDL calc) (12/21/2017 1:42 PM CDT) Cholesterol 203(H) <200 mg/dL 12/22/2017 12:46 PM CDT [facility] Comment:Desirable: <200 mg/d l Triglycerides 101 <150 mg/dL 12/22/2017 12:46 PM CDT [facility] Comment:Non Fasting HDL Cholesterol 54 >49 mg/dL 8 12:46 PM CDT [facility] LDL Cholesterol Calculated 129(H) <100 mg/dL 12/22/2017 12:46 PM CDT [facility] Comment: Above desirable: ??100-129 mg/dl Borderline High: ??130-159 mg/dL High: ? 160-189 mg/dL Very high: ? >189 mg/dl Non HDL Cholesterol 149(H) <130 mg/dL 12/22/2017 12:46 PM CDT [facility] Comment: Above Desirable: ??130-159 mg/dl Borderline high: ??160-189 mg/dl High: ? 190-219 mg/dl Very high: ? >219 mg/dl Blood specimen (specimen) 12/21/2017 1:42 PM CDT 12/21/2017 1:43 PM CDT Bonny Cooley MD LAB - BLOOD ORDERABL ES Performing Organization Address City/[facility]/ZIP Co de Phone Number [facility] [address], [place] [address] * Hepatitis C antibody (04/12/2017 2:46 PM CDT) Hepatitis C Antibody Nonreactive NR^Nonre active 04/13/2017 10:43 AM CDT [facility] Comment: Assay performance characteristics have not been established for newborns, infants, and children Blood specimen (specimen) 04/12/2017 2:46 PM CDT 04/12/2017 2:51 PM CDT Lázaro Horowitz MD LAB - BLOOD ORDERABLES [facility] [address] [place] [address] * DX Hip/Pelvis/Spine (12/10/2016 5:01 PM CDT) Anatomical Region Laterality Modality Dexa Bone Mineral Den sity Narrative 12/10/2016 9:14 PM CDT ATTENTION: ??Easy to read DXA/VFA reports (formatted and presented as tables) can be found in EPIC under Chart review > ??Imaging tab > ??DXA [facility] [address] [place] [id number] Phone: ?? Fax: FINAL REPORT Patient name: ?? LOWELL MILLER ([id number] ) Patient demographics: 72.2 year old White Female of 64.5 in. height and 152.0 lbs. weight Ordering provider: BONNY COOLEY History: ??HIGH CALCIUM, Hyperparathyroid, KIDNEY STONES, LOW BONE DENSITY, LOW VITAMIN D, MS, OVARIES REMOVED (1 OR 2), POSTMENOPAUSAL, reformed tobacco habit Current treatments: PREDNISONE, Vitamin D Scan: ??DXA exam ([id number] ): Coolest Cooler Exam date: ??12/10/2016 Comparison: ?? 12/10/2016 09/13/2013 03/13/2008 Dual energy x-ray absorptiometry (DXA) results: Region Date BMD T - score Z - score BMD change from baseline BMD % change from baseline BMD change from previous BMD % change from previous L1-L2 12/10/2016 0.855 g/cm?? -2.6 -1.0 -0.033 g/cm?? -3.7% 0.073 g/cm?? 9.3% 09/13/2013 0.782 g/cm? 03/13/2008 0.888 g/cm? baseline baseline - - Neck Left 12/10/2016 0.668 g/cm?? -2.7 -1.0 ? 09/13/2013 0.623 g/cm? 03/13/2008 0.704 g/cm? Total Left 12/10/2016 0.693 g/cm?? -2.5 -1.0 -0.091 g/cm?? -11.6% 0.034 g/cm?? 5.2% 09/13/2013 0.659 g/cm? 03/13/2008 0.784 g/cm? baseline baseline - - Neck Right 12/10/2016 0.590 g/cm?? -3.2 -1.5 ? 09/13/2013 0.590 g/cm? 03/13/2008 0.712 g/cm? Total Right 12/10/2016 0.602 g/cm?? -3.2 -1.7 -0.126 g/cm?? -17.3% 0.003 g/cm?? 0.5% 09/13/2013 0.599 g/cm? 03/13/2008 0.728 g/cm? baseline baseline - - ? Radius 33% 12/10/2016 0.445 g/cm?? -3.7 -1.7 -0.176 g/cm?? -28.3% -0.055 g/cm?? -10.9% 09/13/2013 0.500 g/cm? 03/13/2008 0.621 g/cm? baseline baseline - - Conclusions: The most negative and valid T-score of -3.7 at the level of the wrist, corresponds with osteoporosis. (for premenopausal women and men < age 50, Z-scores, not T-scores are reported ) ??The most negative and valid Z-score of -1.7 at the level of the right total hip and at the level of the wrist, is WITHIN expected range for age. The risk of osteoporotic fracture increases approximately 2-fold for each 1.0 SD decrease in T-score. ??Low bone density is not the only risk factor for fracture; consider factors such as patient's age, fall risk, injury risk, previous osteoporotic fracture, family history of osteoporosis, etc. People with an elevated risk of fracture should be regularly evaluated for low bone mineral density. ??For patients eligible for Medicare, routine testing is allowed once every 2 years. Testing frequency can be increased for patients on corticosteroids. Clinical correlation is recommended. Taking into account the precision errors (reference 2) for this center A. these calculated changes in BMD to the previous exam are significant: 9.3% ??at the level of the L1 - L2 lumbar spine, 5.2% ??at the level of the left total hip, -10.9% ??at the level of the wrist. B. these calculated changes in BMD to the baseline exam are significant: -3.7% ??at the level of the L1 - L2 lumbar spine, -11.6% ??at the level of the left total hip, -17.3% at the level of the right total hip, ??-28.3% ??at the level of the wrist. Considerations: Given the interim decrease in BMD of ??-28.3% ??at the level of the wrist, so as to work up for possible secondary causes of low bone density, suggest that the ordering provider consider metabolic testing. Feel free to contact DXA services if you have any questions or comments. ?? Thank you for the opportunity to be of service to you and your patient. Principal result asbestos handler: Abbey Morejon MD, CCD [employer] Wom[employer] wheel facer Division of Endocrinology References: 1. ISCD position statements: ??www.iscd.org ??(includes the report of the 2014 ??Position Development Conference) 2. LSC = least significant changes at the [facility] AP spine = ??0.032 g/cm2 ??(01.31.2007) Left hip = 0.029 g/cm2 ??(01.20.2007) Right hip = 0.018 g/cm2 ??(01.20.2007) Left mid radius = 0.043 g/cm2 ??(01.31.2007) Lateral spine region = pending Total body = pending Template revised 03/13/2015 Technical comments: -Satisfactory. -Percent changes not mentioned or within remaining regions are either insignificant or invalid. -Please note that the differential diagnosis of BMD increase in the spine includes improvement due to pharmacotherapy vs inter-current progression of spine degeneration or fracture -As per the ISCD Position Statements, -total hip rather than femoral neck regions are to be compared because larger areas give better precision. -abnormal vertebrae may be excluded from analysis if there is more than a 1.0 T-score difference between the vertebrae in question and adjacent vertebrae. Note the wide range in BMD values and ??T-scores ??within the lumbar spine L2 ? L3. ??In the circumstances, the lumbar spine is represented by L1 ? L2. -so that 2 valid regions are available for analysis, ??results of the scan of the wrist were taken into consideration for determining WHO bone health diagnosis for the following reason: - ??parathyroid dysfunction. Template revised 7.5.2015 Bonny Cooley MD IMG DEXA ORDERABLES from Last 3 Months or Most Recently Relevant to Health Maintenance Advance Directives For more information, please contact: [phone] * Full Code (Latest Code Status on File) Date Activated Date Inactivated Comments 08/29/2018 11:12 AM 07/08/2020 8:36 AM Question Answer Comments Code status determined by: Discussion with amaris cuadra/legal decision maker * Full Code Date Activated Date Inactivated Comments 08/28/2018 4:12 PM 08/29/2018 11:12 AM Question Answer Comments Code status determined by: Discussion with amaris cuadra/legal decision maker Care Teams Asparagus Cutter Relationship Specialty Start Date End Date Aminata Youssef MD [facility] [address] [place] [address] PCP - General Internal Medicine 06/03/21 Bettye Gonzales MD Internal Medicine 04/10/15 Antony Chakraborty MD [address] [place] [id number] INTERNAL MEDICINE - ENDOCRINOLOGY, DIABETES & METABOLISM 11/13/15 Mateo Cheema MD [address] [place] [id number] Internal Medicine 08/06/16 Ermias Colón MD [address] [place] [id number] Referring Physician Neurology 09/23/16
--- OUTSIDE RECORDS SUMMARY | 2024-02-03 12:50 | XMS_ITS | Encounter Summary ---
Author Organization [facility] Address [address] [place] [address] Care Team Providers Care Supervisor In Charge Name Role Phone Bettye Gonzales MD Unavailable + Bonny Cooley MD Primary Care Provider Antony Chakraborty MD Unavailable Mateo Cheema MD Unavailable [phone] Ermias Colón MD Unavailable Pam Hernandez MD Unavailable [phone] Jaime Grover MD Unavailable [phone] Toni Sheth MD Unavailable [phone] Bertram Elizabeth MD Unavailable Bonny Cooley MD Unavailable [phone] Aminata Youssef MD Primary Care Provider Bertram Elizabeth MD Unavailable Alex Johnson MD Unavailable Bonny Cooley MD Unavailable [phone] Bertram Elizabeth MD Unavailable Bertram Elizabeth MD Unavailable Encounter Details Date Type Department Care Team (Late st Contact Info) Description 02/25/2021 [facility] [address] [address] Karen Villagran CMA Social History Tobacco Use Types Packs/Day Years Used Date Smoking Tobacco: Former Cigarettes 2 3 0 04/23/1976 - 12/17/1977 Smokeless Tobacco: Never Alcohol Use Standard Drinks/Week Comments No 0 (1 standard drink = 0.6 oz pur e alcohol) PHQ-2 Answer Date Recorded PHQ-2 Score 4 01/31/2020 Sex and Gender Information Value Date Recorded Sex Assigned at Female 08/28/2018 12:23 AM PRETZEL TWISTER Gender Identity Female 08/28/2018 12:23 AM PRETZEL TWISTER Sexual Orientation Straight 10/11/2019 2: 51 PM PRETZEL TWISTER documented as of this encounter Plan of Treatment Not on file documented as of this encounter Visit Diagnoses Not on filedocumented in this encounter Additional Health Concerns Assessment Noted Time PHQ-9 Depression Total Score: 11 020 2:18 PM CDT documented as of this encounter Care Teams Supervisor In Charge Relationship Specialty Start Date End Date Bonny Cooley MD [address] [place] [address] PCP - General Family Practice 09/30/15 06/02/21 Aminata Youssef MD [facility] [address] [place] [address] PCP - General Internal Medicine 06/03/21 Bettye Gonzales MD Internal Medicine 04/10/15 Antony Chakraborty MD [address] [place] [address] [address] [place] [address] INTERNAL MEDICINE - ENDOCRINOLOGY, DIABETES & METABOLISM 11/13/15 Mateo Cheema MD [address] [address] Internal Medicine 08/06/16 Ermias Colón MD [address] [address] Referring Physician Neurology 09/23/16 Pam Hernandez MD [address] [place] [address] [place] [address] Assigned Behavioral Health Provider 05/30/20 08/01/21 Jaime Grover MD [address] [place] [address] Assigned Gastroenterology Provider 05/30/20 11/14/21 Toni Sheth MD [address] [address] Assigned Surgical Provider 05/30/2006/28 Bertram Elizabeth MD [address] [address] Assigned PCP 07/27/20 04/25/21 Bonny Cooley MD [address] [address] Assigned PCP 04/26/21 08/15/21 Bertram Elizabeth MD [address] [facility] [address] [place] [address] Assigned PCP 08/16/21 10/24/21 Alex Johnson MD [address] [place] [address] Assigned Rheumatology Provider 10/18/21 04/15/23 Bonny Cooley MD [address] [facility] [address] [place] [address] Assigned PCP 10/25/21 04/02/22 Bertram Elizabeth MD [address] [place] [address] Assigned PCP 04/03/22 07/23/22 Bertram Elizabeth MD [address] [place] [address] Assigned PCP 10/02/22 04/29/23 documented as of this encounter
--- OUTSIDE RECORDS SUMMARY | 2024-02-03 12:50 | XMS_ITS | Encounter Summary ---
Author Organization [facility] Address [address] [place] [address] Care Team Providers Care Addiction Professional Name Role Phone Bettye Gonzales MD Unavailable + Bonny Cooley MD Primary Care Provider [phone] Antony Chakraborty MD Unavailable [phone] Mateo Cheema MD Unavailable [phone] Ermias Colón MD Unavailable Pam Hernandez MD Unavailable Jaime Grover MD Unavailable [phone] Bonny Cooley MD Unavailable [phone] Aminata Youssef MD Primary Care Provider Bertram Elizabeth MD Unavailable [phone] Alex Johnson MD Unavailable [phone] Bonny Cooley MD Unavailable [phone] Bertram Elizabeth MD Unavailable Bertram Elizabeth MD Unavailable Reason for Visit * Reason Comments Medication Refill Encounter Details Date Type Department Care Team (Late st Contact Info) Description 05/06/2021 Refill [facility] [address] [facility] [place] [phone] Bonny Cooley MD [address] [facility] [address] [place] [address] Medication Refill Social History Tobacco Use Types Packs/Day Years Used Date Smoking Tobacco: Former Cigarettes 2 3 0 04/23/1976 - 12/17/1977 Smokeless Tobacco: Never Alcohol Use Standard Drinks/Week Comments No 0 (1 standard drink = 0.6 oz pur e alcohol) PHQ-2 Answer Date Recorded PHQ-2 Score 4 01/31/2020 Sex and Gender Information Value Date Recorded Sex Assigned at Female 08/28/2018 12:23 AM RADIOISOTOPE TECHNOLOGIST Gender Identity Female 08/28/2018 12:23 AM RADIOISOTOPE TECHNOLOGIST Sexual Orientation Straight 10/11/2019 2: 51 PM RADIOISOTOPE TECHNOLOGIST documented as of this encounter Miscellaneous Notes * Telephone Encounter - Alicia Ross RN - 05/08/2021 3:48 PM CDT Patient finding new PCP, refused and noted to pharmacy to defer to new PCP * Telephone Encounter - Bonny Cooley MD - 05/08/2021 3:43 PM CDT Defer to pts new pcp DM * Telephone Encounter - Alicia Ross RN - 05/08/2021 3:15 PM CDT Routing refill request to provider for review/approval because: PHQ-9 score greater than 4 per [facility] protocol PHQ-9 score: PHQ 01/31/2020 PHQ-9 Total Score 11 Q9: Thoughts of better off /self-harm past 2 weeks Not at all F/U: Thoughts of suicide or self-harm - F/U: Safety concerns - MARY KATE Liu RN [facility] documented in this encounter Plan of Treatment Not on file documented as of this encounter Visit Diagnoses Diagnosis Major depressive disorder, recurrent episode, moderate (H) Major depressive disorder, recurrent episode, moderate documented in this encounter Additional Health Concerns Assessment Noted Time PHQ-9 Depression Total Score: 11 020 2:18 PM CDT documented as of this encounter Care Teams Addiction Professional Relationship Specialty Start Date End Date Bonny Cooley MD [address] [place] [address] PCP - General Family Practice 09/30/15 06/02/21 Aminata Youssef MD [facility] & [address] [address] PCP - General Internal Medicine 06/03/21 Bettye Gonzales MD MD Internal Medicine 04/10/15 Antony Chakraborty MD [address] [address] MD INTERNAL MEDICINE - ENDOCRINOLOGY, DIABETES & METABOLISM 11/13/15 Mateo Cheema MD [address] [address] Internal Medicine 08/06/16 Ermias Colón MD [address] [address] Referring Physician Neurology 09/23/16 Pam Hernandez MD [address] [place] [address] [place] [address] Assigned Behavioral Health Provider 05/30/20 08/01/21 Jaime Grover MD [address] [place] [address] Assigned Gastroenterology Provider 05/30/20 11/14/21 [place] [address] [place] [address] Assigned PCP 04/26/21 08/15/21 Bertram Elizabeth MD [address] [place] [address] Assigned PCP 08/16/21 10/24/21 Alex Johnson MD [address] [place] [address] Assigned Rheumatology Provider 10/18/21 04/15/23 Bonny Cooley MD [address] [place] [address] Assigned PCP 10/25/21 04/02/22 Bertram Elizabeth MD [address] [place] [address] Assigned PCP 04/03/22 07/23/22 Bertram Elizabeth MD [address] [place] [address] Assigned PCP 10/02/22 04/29/23 documented as of this encounter
--- OUTSIDE RECORDS SUMMARY | 2024-02-03 12:50 | XMS_ITS | Clinical Summary ---
Author Organization [facility] Address [address] [place] [address] Care Team Providers Care Aeronautical Engineering Officer Name Role Phone Bettye Gonzales MD Unavailable + Antony Chakraborty MD Unavailable [phone] Mateo Cheema MD Unavailable Ermias Colón MD Unavailable Aminata Youssef MD Primary Care Provider Allergies Active Allergy Reactions Criticality Noted Date Comments Dust Mites 11/19/2013 Milk (Cow) Other (See Comments) 12/01/2018 foggy and tired Mold 11/19/2013 Pollen Extract 12/01/2018 Other reaction(s): Headache Trees 11/19/2013 Medications Medication Sig Dispensed Refills Start Date End Date Status Evening Agency Oil CAPS Take 1,300 mg by mouth [...] Patient not taking.Reported on 10/09/2021 nystatin (MYCOSTATIN) 277454 UNIT/GM external powderIndications:In tertrigo Apply topically 2 [...] buPROPion (WELLBUTRIN XL) 300 MG 24 hr tabletIndications:Ma layne depressive disorder, recurrent episode, moderate (H) TAKE ONE TABLET BY MOUTH EVERY MORNING 90 tablet 12/09/2020 Active leucovorin (WELLCOVORIN) 5 MG tabletIndications:Rh eumatoid arthritis of multiple sites without rheumatoid factor (H) Take 1 tablet (5 mg) by mouth every 7 days Take the day after taking Methotrexate every week. For additional refills, please schedule a follow-up appointment at [phone] 12 tablet 01/27/2021 Active Additional Information Patient [...] derate 01/31/2020 Anxiety 01/31/2020 Rheumatoid arthritis of mult iple sites without rheumatoid factor 04/12/2017 YUE (obstructive [...] 04/01/20 09 Hyperlipidemia LDL goal <160 07/05/2012 Encounters Date Type Department Care Team Description 12/13/2023 MyC Medical Advice [facility] [address] [address] Betteharjason [facility] 12/13/2023 Telephone [facility] Rheumatology [address] [address] Alex Johnson MD Call To Schedule Appointment from Last 3 Months Immunizations Name Administration Dates Next Due Influenza (H1N1) 08/14/2009 Influenza (High Dose) 3 valent vaccine 9,08/07/2018,05/01/2015 Influenza (IIV3) PF 06/25/2008 Influenza Vaccine 65+ (Fluzone HD) 05/16/2020 Pneumo Conj 13-V (2010&after) 12/21/2017 Pneumococcal 23 valent 05/12/2011 TDAP Vaccine (Adacel) 12/21/2017 Zoster vaccine, live 05/12/2011 Family History Medical History Relation Comments Asthma Daughter 1 Depression Daughter 1 Autism Spectrum Disorder Daughter 2 Depression Daughter 2 Depression Daughter 3 Migraines Daughter 3 Ulcerative Colitis Daughter 4 Asthma Daughter 5 Depression Daughter 5 Depression Daughter 6 Migraines Daughter 6 Depression Daughter 7 Brain Cancer Father Cancer Father brain tumor Other Cancer Father Brain Hypertension Maternal Aunt 1 Hypertension Maternal Aunt 2 Hypertension Maternal Grandfather Hypertension Maternal Grandmother Cancer Mother skin cancer Diverticulitis Mother Hypertension Mother Other Cancer Mother Skin-on nose Skin Cancer Mother Thyroid Disease Mother Hypertension Sister 2 Hypertension Sister 3 Crohn's Disease No family hx of Relation Status Comments Brother Alive Daughter 1 Daughter 2 Daughter 3 Daughter 4 Daughter 5 Alive Daughter 6 Alive Daughter 7 Alive Father Maternal Aunt 1 Maternal Aunt 2 Maternal Grandfather Maternal Grandmother Mother Paternal Grandfather Paternal Grandmother Sister 1 Alive Sister 2 Sister 3 Social History Tobacco Use Types Packs/Day Years [...] Sex Assigned at Female 08/28/2018 12:23 AM CHIEF CONSOLE OPERATOR Gender Identity Female 08/28/2018 12:23 AM CHIEF CONSOLE OPERATOR Sexual Orientation Straight 10/11/2019 2: 51 PM CHIEF CONSOLE OPERATOR Last Filed Vital Signs Vital Sign Reading Time Taken Comments Blood Pressure 135/69 07/08/2020 10:47 AM CHIEF CONSOLE OPERATOR Pulse 80 07/08/2020 10:47 AM CHIEF CONSOLE OPERATOR Temperature 37 ??C (98.6 ??F) 04/23/2020 4:29 PM CDT Respiratory Rate 25 07/08/2020 10:05 AM CHIEF CONSOLE OPERATOR Oxygen Saturation 98% 07/08/2020 10:49 AM CHIEF CONSOLE OPERATOR Inhaled Oxygen Concentration - - Weight 81.6 kg (180 lb) 05/14/2020 2:51 PM CDT Height 166.4 cm (5' 5.5) 05/14/2020 2:51 PM CDT Body Mass Index 29.5 05/14/2020 2:51 PM CDT Plan of Treatment Health Maintenance Due Date Last Done Comments ANNUAL REVIEW OF HM ORDERS 1944 LUNG CANCER SCREENING 1994 RSV VACCINE ( & 60+) (1 - 1-dose 60+ series) 2004 ZOSTER IMMUNIZATION (1 of 2) 07/07/2011 05/12/2011 MEDICARE ANNUAL WELLNESS VISIT 05/01/2016 05/01/2015, 09/25/2013, 05/12/2011 ADVANCE CARE PLANNING 01/18/2017 01/19/2012, 012 LIPID 12/21/2018 12/21/2017, 04/09, 09/25/2013, Additional history exists PHQ-9 08/01/2020 01/31/2020, 11/08, 09/04/2019, Additional history exists FALL RISK ASSESSMENT 10/17/2020 10/18/2019, 12/28/2016, 05/11/2016, Additional history exists GLUCOSE 07/24/2022 07/24/2019, 08/09, 08/07/2018, Additional history exists COVID-19 Vaccine ( season) 2023 05/30/2022, 01/24/2022, 05/12/2021, Additional history exists INFLUENZA VACCINE (Season Ended) 2024 05/30/2022, 05/04/2021, 05/16/2020, Additional history exists DTAP/TDAP/TD IMMUNIZATION (2 - Td or Tdap) 12/22/2027 12/21/2017 DEXA 12/11/2031 12/10/2016, 12/2016, 09/13/2013, Additional history exists HEPATITIS C SCREENING Completed 04/12/2017 DEPRESSION ACTION PLAN Completed 8, 12/31/2016, 12/31/2016, Additional history exists Pneumococcal Vaccine: 65+ Years Completed 12/21/2017, 05/12/2011 MAMMO SCREENING Discontinued 08/16/2018, 0 09/2014, 05/07/2015 COLONOSCOPY Discontinued 07/08/2020, 08/2019, 08/20/2011 COLORECTAL CANCER SCREENING Discontinued CT COLONOGRAPHY Discontinued FIT Discontinued FLEX SIG Discontinued HPV IMMUNIZATION Aged Out No longer e ligible based on patient's age to complete this topic IPV IMMUNIZATION Aged Out No longer e ligible based on patient's age to complete this topic MENINGITIS IMMUNIZATION Aged Out No l onger eligible based on patient's age to complete this topic RSV MONOCLONAL ANTIBODY Aged Out No l onger eligible based on patient's age to complete this topic sDNA (Cologuard) Discontinued Procedures Procedure Name Priority Date/Time Associated Diagnosis Comments COLONOSCOPY Routine 07/08/2020 8:56 AM CHIEF CONSOLE OPERATOR COMPREHENSIVE METABOLIC PANEL Routine 07/24/2019 3:29 PM CHIEF CONSOLE OPERATOR Other fatigue MA SCREENING DIGITAL BILATERAL Routine 08/16/2018 11:45 AM CHIEF CONSOLE OPERATOR Encounter for screening mammogram for breast cancer [...] Maintenance Results * COLONOSCOPY (07/08/2020 8:56 AM CHIEF CONSOLE OPERATOR) [facility] COLONOSCOPY [address] [place] [address] [phone] ? Endoscopy Department Patient Name: Lowell Miller [...] of the exam. Signature of teaching physician Wally/Love Grover MD Number of Addenda: 0 Note Initiated On: 07/08/2020 8:56 AM Scope In: Scope Out: RADIOLOGY RESULTS 07/08/2020 8:56 AM CHIEF CONSOLE OPERATOR Bonny Cooley MD PROCEDURES RADIOLOGY RESULTS * (ABNORMAL) Comprehensive metabolic panel (BMP + Alb, Alk Phos, ALT, AST, Total. Bili, TP) (07/24/2019 3:29 PM CHIEF CONSOLE OPERATOR) Sodium 143 133 - 144 mmol/L 07/25/2019 9:[address] [facility] Potassium 4.5 3.4 - 5.3 mmol/L 07/25/2019 9:[address] [facility] Chloride 112(H) 94 - 109 mmol/L 07/25/2019 9:[address] [facility] Carbon Dioxide 24 20 - 32 mmol/L 07/25/2019 10:[address] [facility] Anion Gap 7 3 - 14 mmol/L 07/25/2019 10:[address] [facility] Glucose 92 70 - 99 mg/dL 07/25/2019 10:[address] [facility] Comment:Non Fasting Urea Nitrogen 19 7 - 30 mg/dL 07/25/2019 10:[address] [facility] Creatinine 0.80 0.52 - 1.04 mg/dL 07/25/2019 10:[address] [facility] GFR Estimate 72 >60 mL/min/{1 .73_m2} 07/25/2019 10:[address] [facility] Comment: Non GFR Calc Starting 07/25/2018, serum creatinine based estimated GFR (eGFR) will be calculated using the Chronic Kidney Disease Epidemiology Collaboration (CKD-EPI) equation. GFR Estimate If Black 84 >60 mL/min/{1 .73_m2} 07/25/2019 10:31 AM CHIEF CONSOLE OPERATOR [facility] Comment: GFR Calc Starting 07/25/2018, serum creatinine based estimated GFR (eGFR) will be calculated using the Chronic Kidney Disease Epidemiology Collaboration (CKD-EPI) equation. Calcium 9.9 8.5 - 10.1 mg/dL 07/25/2019 10:31 AM CHIEF CONSOLE OPERATOR [facility] Bilirubin Total 0.3 0.2 - 1.3 mg/dL 07/25/2019 10:36 AM CHIEF CONSOLE OPERATOR [facility] Albumin 3.8 3.4 - 5.0 g/dL 07/25/2019 10:36 AM CHIEF CONSOLE OPERATOR [facility] Protein Total 6.8 6.8 - 8.8 g/dL 07/25/2019 10:36 AM CHIEF CONSOLE OPERATOR [facility] Alkaline Phosphatase 97 40 - 150 U/L 07/25/2019 10:[address] [facility] ALT 34 0 - 50 U/L 07/25/2019 10:36 AM CHIEF CONSOLE OPERATOR [facility] AST 21 0 - 45 U/L 07/25/2019 10:36 AM CHIEF CONSOLE OPERATOR [facility] Blood specimen (specimen) 07/24/2019 3:29 PM CHIEF CONSOLE OPERATOR 07/24/2019 3:30 PM CHIEF CONSOLE OPERATOR Bonny Cooley MD LAB - BLOOD ORDERABL ES [facility] [address] [place] [address] * *MA Screening Digital Bilateral (08/16/2018 11:45 AM CHIEF CONSOLE OPERATOR) Anatomical Region Laterality Modality Breast Bilateral Mammography Impressions 08/17/2018 10:40 AM CHIEF CONSOLE OPERATOR IMPRESSION: BI-RADS CATEGORY: 1 - ??NEGATIVE. RECOMMENDED FOLLOW-UP: Annual Mammography. The patient will be notified of the results. I have personally reviewed the examination and initial interpretation and I agree with the findings. YOSEPH PERALTA MD Narrative 08/17/2018 10:40 AM CHIEF CONSOLE OPERATOR Examination: Bilateral digital screening mammography with computer aided detection. History: No symptoms, routine screening. Comparison: Diagnostic mammogram 05/09/2015. Screening mammogram 05/07/2015. BREAST DENSITY: Scattered fibroglandular densities.. Findings: No significant change. Bonny Cooley MD IMG MAMMOGRAPHY ORDE CALLIE * (ABNORMAL) Lipid Profile (Chol, Trig, HDL, LDL calc) (12/21/2017 1:42 PM CDT) Cholesterol 203(H) <200 mg/dL 12/22/2017 12:46 PM CDT [facility] Comment:Desirable: <200 mg/d l Triglycerides 101 <150 mg/dL 12/22/2017 12:46 PM CDT [facility] Comment:Non Fasting HDL Cholesterol 54 >49 mg/dL 8 12:46 PM CDT [facility] LDL Cholesterol Calculated 129(H) <100 mg/dL 12/22/2017 12:46 PM CDT [facility] Comment: Above desirable: ??100-129 mg/dl Borderline High: ??130-159 mg/dL High: ? 160-189 mg/dL Very high: ? >189 mg/dl Non HDL Cholesterol 149(H) <130 mg/dL 12/22/2017 12:46 PM CDT [facility] Comment: Above Desirable: ??130-159 mg/dl Borderline high: ??160-189 mg/dl High: ? 190-219 mg/dl Very high: ? >219 mg/dl Blood specimen (specimen) 12/21/2017 1:42 PM CDT 12/21/2017 1:43 PM CDT Bonny Cooley MD LAB - BLOOD ORDERABL ES [facility] [address] [place] [address] * Hepatitis C antibody (04/12/2017 2:46 PM CDT) Hepatitis C Antibody Nonreactive NR^Nonre active 04/13/2017 10:43 AM CDT [facility] Comment: Assay performance characteristics have not been established for newborns, infants, and children Blood specimen (specimen) 04/12/2017 2:46 PM CDT 04/12/2017 2:51 PM CDT Lázaro Horowitz MD LAB - BLOOD ORDERABLES [facility] [address] [place] [address] * DX Hip/Pelvis/Spine (12/10/2016 5:01 PM CDT) Anatomical Region Laterality Modality Dexa Bone Mineral Den sity Narrative 12/10/2016 9:14 PM CDT ATTENTION: ??Easy to read DXA/VFA reports (formatted and presented as tables) can be found in [facility] under Chart review > ??Imaging tab > ??DXA [facility] [address] [place] [address] Phone: ?? Fax: FINAL REPORT Patient name: ?? LOWELL MILLER ([id number] ) Patient demographics: 72[age]3 year old White Female of 64.5 in. height and 152.0 lbs. weight Ordering provider: BONNY COOLEY History: ??HIGH CALCIUM, Hyperparathyroid, KIDNEY STONES, LOW BONE DENSITY, LOW VITAMIN D, MS, OVARIES REMOVED (1 OR 2), POSTMENOPAUSAL, reformed tobacco habit Current treatments: PREDNISONE, Vitamin D Scan: ??DXA exam ([id number] ): [employer] Exam date: ??12/10/2016 Comparison: ?? 12/10/2016 09/13/2013 [...] to you and your patient. Principal result deaf interpreter: Abbey Morejon MD, CCD Movie Extraend worker Division of Endocrinology References: 1. ISCD position statements: ??www.iscd.org ??(includes the report of the 2015 ??Position Development Conference) 2. LSC = least significant changes at the [facility] AP spine = ??0.032 g/cm2 ??(01.31.2007) [...] following reason: - ??parathyroid dysfunction. Template revised 7. Bonny Cooley MD IMG DEXA ORDERABLES from Last 3 Months or Most Recently Relevant to Health Maintenance Advance Directives For more information, please contact: [phone] * Full Code (Latest Code Status on File) Date Activated Date Inactivated Comments 08/29/2018 11:12 AM 07/08/2020 8:36 AM Question Answer Comments Code status determined by: Discussion with patie nt/legal decision maker * Full Code Date Activated Date Inactivated Comments 08/28/2018 4:12 PM 08/29/2018 11:12 AM Question Answer Comments Code status determined by: Discussion with patie nt/legal decision maker Care Teams Aeronautical Engineering Officer Relationship Specialty Start Date End Date Aminata Youssef MD [facility] & [address] [address] PCP - General Internal Medicine 06/03/21 Bettye Gonzales MD Internal Medicine 04/10/15 Antony Chakraborty MD [address] [address] INTERNAL MEDICINE - ENDOCRINOLOGY, DIABETES & METABOLISM 11/13/15 Mateo Cheema MD [address] [address] Internal Medicine 08/06/16 Ermias Colón MD [address] [id number] Referring Physician Neurology 09/23/16
--- OUTSIDE RECORDS SUMMARY | 2024-02-03 12:50 | XMS_ITS | Encounter Summary ---
Author Organization [facility] Address [address] [place] [address] Care Team Providers Care Taping Machine Operator Name Role Phone Bettye Gonzales MD Unavailable + Antony Chakraborty MD Unavailable Mateo Cheema MD Unavailable [phone] Ermias Colón MD Unavailable Aminata Youssef MD Primary Care Provider Encounter Details Date Type Department Care Team (Late st Contact Info) Description 07/21/2023 [facility] Medical Advice [facility] [address] [address] Suly Merrill, RN Social History Tobacco Use Types Packs/Day [...] Sex Assigned at Female 08/28/2018 12:23 AM HOE RUNNER Gender Identity Female 08/28/2018 12:23 AM HOE RUNNER Sexual Orientation Straight 10/11/2019 2: 51 PM HOE RUNNER documented as of this encounter Plan of Treatment Not on file documented as of this encounter Visit Diagnoses Not on filedocumented in this encounter Additional Health Concerns Assessment Noted Time PHQ-9 Depression Total Score: 11 020 2:18 PM CDT documented as of this encounter Care Teams Taping Machine Operator Relationship Specialty Start Date End Date Aminata Youssef MD [facility] & [address] [address] PCP - General Internal Medicine 06/03/21 Bettye Gonzales MD MD Internal Medicine 04/10/15 Antony Chakraborty MD [address] [id number] MD INTERNAL MEDICINE - ENDOCRINOLOGY, DIABETES & METABOLISM 11/13/15 Mateo Cheema MD [address] [place] [address] [address] Internal Medicine 08/06/16 Ermias Colón MD [address] [address] Referring Physician Neurology 09/23/16 documented as of this encounter
--- OUTSIDE RECORDS SUMMARY | 2024-02-03 12:50 | XMS_ITS | Encounter Summary ---
Author Organization [facility] Address [address] [place] [address] Care Team Providers Care Pond Supervisor Name Role Phone Bettye Gonzales MD Unavailable + Bonny Cooley MD Primary Care Provider [phone] Antony Chakraborty MD Unavailable Mateo Cheema MD Unavailable Ermias Colón MD Unavailable Pam Hernandez MD Unavailable Jaime Grover MD Unavailable Toni Sheth MD Unavailable [phone] Bertram Elizabeth MD Unavailable Bonny Cooley MD Unavailable [phone] Aminata Youssef MD Primary Care Provider Bertram Elizabeth MD Unavailable Alex Johnson MD Unavailable Bonny Cooley MD Unavailable [phone] Bertram Elizabeth MD Unavailable Bertram Elizabeth MD Unavailable Encounter Details Date Type Department Care Team (Late st Contact Info) Description 01/12/[address] [facility] [address] [place] [phone] Bonny Cooley MD 2270 [facility] [place] [address] [place] [address] Social History Tobacco Use Types Packs/Day Years Used Date Smoking Tobacco: Former Cigarettes 2 3 0 04/23/1976 - 12/17/1977 Smokeless Tobacco: Never Alcohol Use Standard Drinks/Week Comments No 0 (1 standard drink = 0.6 oz pur e alcohol) PHQ-2 Answer Date Recorded PHQ-2 Score 4 01/31/2020 Sex and Gender Information Value Date Recorded Sex Assigned at Female 08/28/2018 12:23 AM WAX MACHINE OPERATOR Gender Identity Female 08/28/2018 12:23 AM WAX MACHINE OPERATOR Sexual Orientation Straight 10/11/2019 2: 51 PM WAX MACHINE OPERATOR documented as of this encounter Miscellaneous Notes * Telephone Encounter - Henrietta Gilliland RN - 01/13/2021 1:22 PM CDT florencia communication. Patient needs medical records. Patient given number. Thanks! Henrietta Gilliland RN documented in this encounter Plan of Treatment Not on file documented as of this encounter Visit Diagnoses Not on filedocumented in this encounter Additional Health Concerns Assessment Noted Time PHQ-9 Depression Total Score: 11 020 2:18 PM CDT documented as of this encounter Care Teams Pond Supervisor Relationship Specialty Start Date End Date Bonny Cooley MD [address] [place] [address] PCP - General Family Practice 09/30/15 06/02/21 Aminata Youssef MD [facility] - [address] [address] PCP - General Internal Medicine 06/03/21 Bettye Gonzales MD Internal Medicine 04/10/15 Antony Chakraborty MD [address] [place] [address] MD INTERNAL MEDICINE - ENDOCRINOLOGY, DIABETES & METABOLISM 11/13/15 Mateo Cheema MD [address] [place] [address] Internal Medicine 08/06/16 Ermias Colón MD [address] [place] [address] Referring Physician Neurology 09/23/16 Pam Hernandez MD [address] [place] [address] [place] [address] Assigned Behavioral Health Provider 05/30/20 08/01/21 Jaime Grover MD [address] [place] [address] Assigned Gastroenterology Provider 05/30/20 11/14/21 Toni Sheth MD [address] [address] Assigned Surgical Provider 05/30/2006/28 Bertram Elizabeth MD [facility] [facility] [place] 200 [place] [address] Assigned PCP 07/27/20 04/25/21 Bonny Cooley MD 0 [facility] 200 [place] [address] Assigned PCP 04/26/21 08/15/21 Bertram Elizabeth MD 2270 [facility] 200 [place] [address] Assigned PCP 08/16/21 10/24/21 Alex Johnson MD [address] [place] [address] Assigned Rheumatology Provider 10/18/21 04/15/23 Bonny Cooley MD 0 [facility] 200 [place] [address] Assigned PCP 10/25/21 04/02/22 Bertram Elizabeth MD 0 [facility] 200 [place] [address] Assigned PCP 04/03/22 07/23/22 Bertram Elizabeth MD 2270 [facility] 200 [place] [address] Assigned PCP 10/02/22 04/29/23 documented as of this encounter
--- OUTSIDE RECORDS SUMMARY | 2024-02-03 12:50 | XMS_ITS | Encounter Summary ---
Author Organization [facility] Address [address] [place] [address] Care Team Providers Care Pantry Goods Worker Name Role Phone Bettye Gonzales MD Unavailable + Bonny Cooley MD Primary Care Provider [phone] Antony Chakraborty MD Unavailable Mateo Cheema MD Unavailable Ermias Colón MD Unavailable Pam Hernandez MD Unavailable Jaime Grover MD Unavailable Toni Sheth MD Unavailable [phone] Bertram Elizabeth MD Unavailable [phone] Bonny Cooley MD Unavailable [phone] Aminata Youssef MD Primary Care Provider Bertram Elizabeth MD Unavailable Alex Johnson MD Unavailable [phone] Bonny Cooley MD Unavailable [phone] Bertram Elizabeth MD Unavailable Bertram Elizabeth MD Unavailable [phone] Reason for Visit * Reason Comments Medication Refill Encounter Details Date Type Department Care Team (Late st Contact Info) Description 03/04/2021 Refill [facility] [address] [place] [phone] Bonny Cooley MD 2270 [facility] [place] 200 [place] [address] Medication Refill Social History Tobacco Use Types Packs/Day Years Used Date Smoking Tobacco: Former Cigarettes 2 3 0 04/23/1976 - 12/17/1977 Smokeless Tobacco: Never Alcohol Use Standard Drinks/Week Comments No 0 (1 standard drink = 0.6 oz pur e alcohol) PHQ-2 Answer Date Recorded PHQ-2 Score 4 01/31/2020 Sex and Gender Information Value Date Recorded Sex Assigned at Female 08/28/2018 12:23 AM BUS STARTER Gender Identity Female 08/28/2018 12:23 AM BUS STARTER Sexual Orientation Straight 10/11/2019 2: 51 PM BUS STARTER documented as of this encounter Miscellaneous Notes * Telephone Encounter - Bonny Cooley MD - 03/09/2021 4:39 PM CDT Per previosu my chart - will establish care at [facility]. DM * Telephone Encounter - Katlin Madrid RN - 03/09/2021 10:[address] Cooley-Naomie refill given and patient did not follow up. #30 pended. Team Coordinators-Please contact patient to schedule annual physical. Thank you! MARY KATE Carr, RN [facility] documented in this encounter Plan of Treatment Not on file documented as of this encounter Visit Diagnoses Diagnosis Essential hypertension with goal blood pressure less than 140/90 documented in this encounter Additional Health Concerns Assessment Noted Time PHQ-9 Depression Total Score: 11 020 2:18 PM CDT documented as of this encounter Care Teams Pantry Goods Worker Relationship Specialty Start Date End Date Bonny Cooley MD [address] [place] [address] PCP - General Family Practice 09/30/15 06/02/21 Aminata Youssef MD [facility] [address] [place] [address] PCP - General Internal Medicine 06/03/21 Bettye Gonzales MD MD Internal Medicine 04/10/15 Antony Chakraborty MD [address] [address] MD INTERNAL MEDICINE - ENDOCRINOLOGY, DIABETES & METABOLISM 11/13/15 Mateo Cheema MD [address] [place] [address] [id number] Internal Medicine 08/06/16 Ermias Colón MD [address] [id number] Referring Physician Neurology 09/23/16 Pam Hernandez MD [address] [place] [address] [place] [address] Assigned Behavioral Health Provider 05/30/20 08/01/21 Jaime Grover MD [address] [place] [address] Assigned Gastroenterology Provider 05/30/20 11/14/21 Toni Sheth MD [facility] [address] [facility] 98 [place] [address] Assigned Surgical Provider 05/30/2006/28 Bertram Elizabeth MD 2270 [facility] 200 [place] [address] Assigned PCP 07/27/20 04/25/21 Bonny Cooley MD [address] [address] Assigned PCP 04/26/21 08/15/21 Bertram Elizabeth MD [address] [address] Assigned PCP 08/16/21 10/24/21 Alex Johnson MD [address] [place] [address] Assigned Rheumatology Provider 10/18/21 04/15/23 Bonny Cooley MD 2270 [facility] 200 [place] [address] Assigned PCP 10/25/21 04/02/22 Bertram Elizabeth MD 2270 [facility] 200 [place] [address] Assigned PCP 04/03/22 07/23/22 Bertram Elizabeth MD [address] [address] Assigned PCP 10/02/22 04/29/23 documented as of this encounter
--- OUTSIDE RECORDS SUMMARY | 2024-02-03 12:50 | XMS_ITS | Encounter Summary ---
Author Organization [facility] Address [address] [place] [address] Care Team Providers Care Supervisor Dumping Name Role Phone Bettye Gonzales MD Unavailable + Bonny Cooley MD Primary Care Provider Antony Chakraborty MD Unavailable Mateo Cheema MD Unavailable [phone] Ermias Colón MD Unavailable Bonny Cooley MD Unavailable Pam Hernandez MD Unavailable [phone] Lázaro Horowitz MD Unavailable Jaime Grover MD Unavailable Toni Sheth MD Unavailable [phone] Toni Sheth MD Unavailable [phone] Bertram Elizabeth MD Unavailable [phone] Bonny Cooley MD Unavailable [phone] Aminata Youssef MD Primary Care Provider Bertram Elizabeth MD Unavailable Alex Johnson MD Unavailable [phone] Bonny Cooley MD Unavailable [phone] Bertram Elizabeth MD Unavailable Bertram Elizabeth MD Unavailable Encounter Details Date Type Department Care Team (Late st Contact Info) Description 07/02/2020 [facility] [address] [address] Jaime Grover MD [address] [place] [address] Social History Tobacco Use Types Packs/Day Years Used Date Smoking Tobacco: Former Cigarettes 2 3 0 04/23/1976 - 12/17/1977 Smokeless Tobacco: Never Alcohol Use Standard Drinks/Week Comments No 0 (1 standard drink = 0.6 oz pur e alcohol) PHQ-2 Answer Date Recorded PHQ-2 Score 4 01/31/2020 Sex and Gender Information Value Date Recorded Sex Assigned at Female 08/28/2018 12:23 AM RENEWABLE ENERGY TECHNICIAN Gender Identity Female 08/28/2018 12:23 AM RENEWABLE ENERGY TECHNICIAN Sexual Orientation Straight 10/11/2019 2: 51 PM RENEWABLE ENERGY TECHNICIAN COVID-19 Exposure Response Date Recorded In the last month, have you been in contact with someone who was confirmed or suspected to have Coronavirus / COVID-19? No / Unsure 06/23/2020 10:33 AM RENEWABLE ENERGY TECHNICIAN documented as of this encounter Plan of Treatment Not on file documented as of this encounter Visit Diagnoses Not on filedocumented in this encounter Additional Health Concerns Infection Onset Date Last Indicated Resolved Time COVID-19 06/23/2020 06/23/2020 07/14/2020 11:4 0 PM RENEWABLE ENERGY TECHNICIAN Recovered COVID 07/08/2020 07/08/2020 09/21/2020 1 1:39 PM RENEWABLE ENERGY TECHNICIAN Assessment Noted Time PHQ-9 Depression Total Score: 11 020 2:18 PM CDT documented as of this encounter Care Teams Supervisor Dumping Relationship Specialty Start Date End Date Bonny Cooley MD [address] [place] [address] PCP - General Family Practice 09/30/15 06/02/21 Aminata Youssef MD [facility] [address] [place] [address] PCP - General Internal Medicine 06/03/21 Bettye Gonzales MD Internal Medicine 04/10/15 Antony Chakraborty MD [address] [address] INTERNAL MEDICINE - ENDOCRINOLOGY, DIABETES & METABOLISM 11/13/15 Mateo Cheema MD [address] [place] [address] [address] Internal Medicine 08/06/16 Ermias Colón MD [address] [address] Referring Physician Neurology 09/23/16 Bonny Cooley MD [address] [address] Assigned PCP 10/05/15 07/26/20 Pam Hernandez MD 911 [facility] [place] [address] Assigned Behavioral Health Provider 05/30/20 08/01/21 [address]áz[address]ínez [address] [facility] [address] [place] [address] Assigned Rheumatology Provider 05/30/20 07/19/20 Jaime Grover MD [address] [place] [address] Assigned Gastroenterology Provider 05/30/20 11/14/21 Toni Sheth MD [address] 617735 Assigned Pediatric Specialist Provider 05/30/20 09/07/20 Toni Sheth MD [address] 996255 Assigned Surgical Provider 05/30/2006/28 [place] [address] [place] [address] [id number] Assigned PCP 07/27/20 04/25/21 [place] [address] [place] [address] [id number] Assigned PCP 04/26/21 08/15/21 [place] [address] [place] [address] [id number] Assigned PCP 08/16/21 10/24/21 Alex Johnson MD [address] [place] [address] 237595 Assigned Rheumatology Provider 10/18/21 04/15/23 Bonny Cooley MD [address] [place] [address] Assigned PCP 10/25/21 04/02/22 [place] [address] [place] [address] Assigned PCP 04/03/22 07/23/22 [place] [address] [place] [address] Assigned PCP 10/02/22 04/29/23 documented as of this encounter
--- OUTSIDE RECORDS SUMMARY | 2024-02-03 12:50 | XMS_ITS | Encounter Summary ---
Author Organization [facility] Address [address] [place] [address] Care Team Providers Care Field Contact Technician Name Role Phone Bettye Gonzales MD Unavailable + Antony Chakraborty MD Unavailable Mateo Cheema MD Unavailable [phone] Ermias Colón MD Unavailable Aminata Youssef MD Primary Care Provider [phone] Encounter Details Date Type Department Care Team (Late st Contact Info) Description 12/13/2023 [facility] [address] [address] [place] Social History Tobacco Use Types Packs/Day Years [...] Sex Assigned at Female 08/28/2018 12:23 AM ACID MAKER Gender Identity Female 08/28/2018 12:23 AM ACID MAKER Sexual Orientation Straight 10/11/2019 2: 51 PM ACID MAKER documented as of this encounter Plan of Treatment Not on file documented as of this encounter Visit Diagnoses Not on filedocumented in this encounter Additional Health Concerns Assessment Noted Time PHQ-9 Depression Total Score: 11 020 2:18 PM CDT documented as of this encounter Care Teams Field Contact Technician Relationship Specialty Start Date End Date Aminata Youssef MD [facility] & [address] [address] PCP - General Internal Medicine 06/03/21 Bettye Gonzales MD MD Internal Medicine 04/10/15 Antony Chakraborty MD 420 [facility] [address] [phone] MD INTERNAL MEDICINE - ENDOCRINOLOGY, DIABETES & METABOLISM 11/13/15 Mateo Cheema MD 420 [facility] [address] [phone] Internal Medicine 08/06/16 Ermias Colón MD 420 [facility] [address] [address] Referring Physician Neurology 09/23/16 documented as of this encounter
--- OUTSIDE RECORDS SUMMARY | 2024-02-03 12:50 | XMS_ITS | Encounter Summary ---
Author Organization [facility] Address [address] [place] [address] Care Team Providers Care Division Engineer Name Role Phone Bettye Gonzales MD Unavailable + Bonny Cooley MD Primary Care Provider [phone] Antony Chakraborty MD Unavailable [phone] Mateo Cheema MD Unavailable Ermias Colón MD Unavailable Bonny Cooley MD Unavailable [phone] Pam Hernandez MD Unavailable [phone] Lázaro Horowitz MD Unavailable Jaime Grover MD Unavailable [phone] Toni Sheth MD Unavailable [phone] Toni Sheth MD Unavailable [phone] Bertram Elizabeth MD Unavailable Bonny Cooley MD Unavailable [phone] Aminata Youssef MD Primary Care Provider Bertram Elizabeth MD Unavailable Alex Johnson MD Unavailable [phone] Bonny Cooley MD Unavailable [phone] Bertram Elizabeth MD Unavailable Bertram Elizabeth MD Unavailable Encounter Details Date Type Department Care Team (Late st Contact Info) Description 06/27/2020 [facility] [address] [place] [address] Keyona Carter Social History Tobacco Use Types Packs/Day Years Used Date Smoking Tobacco: Former Cigarettes 2 3 0 04/23/1976 - 12/17/1977 Smokeless Tobacco: Never Alcohol Use Standard Drinks/Week Comments No 0 (1 standard drink = 0.6 oz pur e alcohol) PHQ-2 Answer Date Recorded PHQ-2 Score 4 01/31/2020 Sex and Gender Information Value Date Recorded Sex Assigned at Female 08/28/2018 12:23 AM ARTIFICIAL FLOWER MAKER Gender Identity Female 08/28/2018 12:23 AM ARTIFICIAL FLOWER MAKER Sexual Orientation Straight 10/11/2019 2: 51 PM ARTIFICIAL FLOWER MAKER COVID-19 Exposure Response Date Recorded In the last month, have you been in contact with someone who was confirmed or suspected to have Coronavirus / COVID-19? No / Unsure 06/23/2020 10:33 AM ARTIFICIAL FLOWER MAKER documented as of this encounter Plan of Treatment Not on file documented as of this encounter Visit Diagnoses Not on filedocumented in this encounter Additional Health Concerns Infection Onset Date Last Indicated Resolved Time COVID-19 06/23/2020 06/23/2020 07/14/2020 11:4 0 PM ARTIFICIAL FLOWER MAKER Recovered COVID 07/08/2020 07/08/2020 09/21/2020 1 1:39 PM ARTIFICIAL FLOWER MAKER Assessment Noted Time PHQ-9 Depression Total Score: 11 020 2:18 PM CDT documented as of this encounter Care Teams Division Engineer Relationship Specialty Start Date End Date Bonny Cooley MD [address] [place] [address] PCP - General Family Practice 09/30/15 06/02/21 Aminata Youssef MD [facility] [address] [place] [address] PCP - General Internal Medicine 06/03/21 Bettye Gonzales MD Internal Medicine 04/10/15 Antony Chakraborty MD [address] [place] [address] 716[address] MD INTERNAL MEDICINE - ENDOCRINOLOGY, DIABETES & METABOLISM 11/13/15 Mateo Cheema MD [address] [address] MD Internal Medicine 08/06/16 Ermias Colón MD [address] [address] Referring Physician Neurology 09/23/16 Bonny Cooley MD [address] [address] Assigned PCP 10/05/15 07/26/20 Pam Hernandez MD [address] [facility] [place] [address] Assigned Behavioral Health Provider 05/30/20 08/01/21 Lázaro Horowitz MD [address] 776125 Assigned Rheumatology Provider 05/30/20 07/19/20 Jaime Grover MD [address] [place] [address] Assigned Gastroenterology Provider 05/30/20 11/14/21 Toni Sheth MD [address] [address] Assigned Pediatric Specialist Provider 05/30/20 09/07/20 Toni Sheth MD [address] [address] Assigned Surgical Provider 05/30/2006/28 Bertram Elizabeth MD [address] [place] [address] Assigned PCP 07/27/20 04/25/21 Bonny Cooley MD [address] [place] [address] Assigned PCP 04/26/21 08/15/21 Bertram Elizabeth MD [address] [place] [address] Assigned PCP 08/16/21 10/24/21 Alex Johnson MD [address] [place] [address] Assigned Rheumatology Provider 10/18/21 04/15/23 Bonny Cooley MD [address] [place] [address] [place] [address] Assigned PCP 10/25/21 04/02/22 Bertram Elizabeth MD [address] [place] [address] Assigned PCP 04/03/22 07/23/22 Bertram Elizabeth MD [address] [place] [address] Assigned PCP 10/02/22 04/29/23 documented as of this encounter
--- OUTSIDE RECORDS SUMMARY | 2024-02-03 12:50 | XMS_ITS | Encounter Summary ---
Author Organization [facility] Address [address] [place] [address] Care Team Providers Care Tape Cutter Name Role Phone Bettye Gonzales MD Unavailable + Bonny Cooley MD Primary Care Provider [phone] Antony Chakraborty MD Unavailable Mateo Cheema MD Unavailable Ermias Colón MD Unavailable Bonny Cooley MD Unavailable [phone] Pam Hernandez MD Unavailable [phone] Lázaro Horowitz MD Unavailable Jaime Grover MD Unavailable Toni Sheth MD Unavailable [phone] Toni Sheth MD Unavailable [phone] eBrtram Elizabeth MD Unavailable [phone] Bonny Cooley MD Unavailable [phone] Aminata Youssef MD Primary Care Provider Bertram Elizabeth MD Unavailable Alex Johnson MD Unavailable [phone] Bonny Cooley MD Unavailable [phone] Bertram Elizabeth MD Unavailable Bertram Elizabeth MD Unavailable [phone] Encounter Details Date Type Department Care Team (Late st Contact Info) Description 07/11/2020 [facility] Advice [facility] [address] [place] [phone] Bonny Cooley MD [address] [phone] Social History Tobacco Use Types Packs/Day Years Used Date Smoking Tobacco: Former Cigarettes 2 3 0 04/23/1976 - 12/17/1977 Smokeless Tobacco: Never Alcohol Use Standard Drinks/Week Comments No 0 (1 standard drink = 0.6 oz pur e alcohol) PHQ-2 Answer Date Recorded PHQ-2 Score 4 01/31/2020 Sex and Gender Information Value Date Recorded Sex Assigned at Female 08/28/2018 12:23 AM MACARONI PRESS OPERATOR Gender Identity Female 08/28/2018 12:23 AM MACARONI PRESS OPERATOR Sexual Orientation Straight 10/11/2019 2: 51 PM MACARONI PRESS OPERATOR COVID-19 Exposure Response Date Recorded In the last month, have you been in contact with someone who was confirmed or suspected to have Coronavirus / COVID-19? No / Unsure 07/08/2020 8:58 AM MACARONI PRESS OPERATOR documented as of this encounter Plan of Treatment Not on file documented as of this encounter Visit Diagnoses Not on filedocumented in this encounter Additional Health Concerns Infection Onset Date Last Indicated Resolved Time COVID-19 06/23/2020 06/23/2020 07/14/2020 11:4 0 PM MACARONI PRESS OPERATOR Recovered COVID 07/08/2020 07/08/2020 09/21/2020 1 1:39 PM MACARONI PRESS OPERATOR Assessment Noted Time PHQ-9 Depression Total Score: 11 020 2:18 PM CDT documented as of this encounter Care Teams Tape Cutter Relationship Specialty Start Date End Date Bonny Cooley MD [address] [place] [address] PCP - General Family Practice 09/30/15 06/02/21 Aminata Youssef MD [facility] [address] [place] [address] PCP - General Internal Medicine 06/03/21 Bettye Gonzales MD Internal Medicine 04/10/15 Antony Chakraborty MD [address] [address] INTERNAL MEDICINE - ENDOCRINOLOGY, DIABETES & METABOLISM 11/13/15 Mateo Cheema MD [address] [place] [address] [address] Internal Medicine 08/06/16 Ermias Colón MD [address] [address] Referring Physician Neurology 09/23/16 Bonny Cooley MD [address] [address] Assigned PCP 10/05/15 07/26/20 Pam Hernandez MD 911 [facility] [place] [address] Assigned Behavioral Health Provider 05/30/20 08/01/21 Lázaro Horowitz MD [facility] [address] [place] [address] Assigned Rheumatology Provider 05/30/20 07/19/20 Jaime Grover MD [address] [place] [address] Assigned Gastroenterology Provider 05/30/20 11/14/21 Toni Sheth MD [address] 727255 Assigned Pediatric Specialist Provider 05/30/20 09/07/20 Toni Sheth MD [address] 934195 Assigned Surgical Provider 05/30/2006/28 Bertram Elizabeth MD [address] [place] [address] [id number] Assigned PCP 07/27/20 04/25/21 Bonny Cooley MD [address] [place] [address] [id number] Assigned PCP 04/26/21 08/15/21 Bertram Elizabeth MD [address] [place] [address] [id number] Assigned PCP 08/16/21 10/24/21 Alex Johnson MD [address] [place] [address] 013165 Assigned Rheumatology Provider 10/18/21 04/15/23 Bonny Cooley MD [address] [place] [address] Assigned PCP 10/25/21 04/02/22 [place] [address] [place] [address] Assigned PCP 04/03/22 07/23/22 [place] [address] [place] [address] Assigned PCP 10/02/22 04/29/23 documented as of this encounter
--- OUTSIDE RECORDS SUMMARY | 2024-02-03 12:50 | XMS_ITS | Encounter Summary ---
Author Organization [facility] Address [address] [place] [address] Care Team Providers Care Dope Firer Name Role Phone Bettye Gonzales MD Unavailable + Bonny Cooley MD Primary Care Provider Antony Chakraborty MD Unavailable Mateo Cheema MD Unavailable [phone] Ermias Colón MD Unavailable Bonny Cooley MD Unavailable [phone] Pam Hernandez MD Unavailable [phone] Lázaro Horowitz MD Unavailable Jaime Grover MD Unavailable Toni Sheth MD Unavailable [phone] Toni Sheth MD Unavailable [phone] Bertram Elizabeth MD Unavailable Bonny Cooley MD Unavailable Aminata Youssef MD Primary Care Provider Bertram Elizabeth MD Unavailable Alex Johnson MD Unavailable [phone] Bonny Cooley MD Unavailable [phone] Bertram Elizabeth MD Unavailable Bertram Elizabeth MD Unavailable Encounter Details Date Type Department Care Team (Late st Contact Info) Description 06/26/2020 [facility] [address] 3rd [place] [address] Mateo Cheema MD 420 [facility] [address] [place] [address] Social History Tobacco Use Types Packs/Day Years Used Date Smoking Tobacco: Former Cigarettes 2 3 0 04/23/1976 - 12/17/1977 Smokeless Tobacco: Never Alcohol Use Standard Drinks/Week Comments No 0 (1 standard drink = 0.6 oz pur e alcohol) PHQ-2 Answer Date Recorded PHQ-2 Score 4 01/31/2020 Sex and Gender Information Value Date Recorded Sex Assigned at Female 08/28/2018 12:23 AM LOAN TELLER Gender Identity Female 08/28/2018 12:23 AM LOAN TELLER Sexual Orientation Straight 10/11/2019 2: 51 PM LOAN TELLER COVID-19 Exposure Response Date Recorded In the last month, have you been in contact with someone who was confirmed or suspected to have Coronavirus / COVID-19? No / Unsure 06/23/2020 10:33 AM LOAN TELLER documented as of this encounter Plan of Treatment Not on file documented as of this encounter Visit Diagnoses Not on filedocumented in this encounter Additional Health Concerns Infection Onset Date Last Indicated Resolved Time COVID-19 06/23/2020 06/23/2020 07/14/2020 11:4 0 PM LOAN TELLER Recovered COVID 07/08/2020 07/08/2020 09/21/2020 1 1:39 PM LOAN TELLER Assessment Noted Time PHQ-9 Depression Total Score: 11 020 2:18 PM CDT documented as of this encounter Care Teams Dope Firer Relationship Specialty Start Date End Date Bonny Cooley MD [address] [place] [address] PCP - General Family Practice 09/30/15 06/02/21 Aminata Youssef MD [facility] [address] [place] [address] PCP - General Internal Medicine 06/03/21 Bettye Gonzales MD Internal Medicine 04/10/15 Antony Chakraborty MD [address] [address] INTERNAL MEDICINE - ENDOCRINOLOGY, DIABETES & METABOLISM 11/13/15 Mateo Cheema MD [address] [place] [address] [address] Internal Medicine 08/06/16 Ermias Colón MD [address] [address] Referring Physician Neurology 09/23/16 Bonny Cooley MD [address] [address] Assigned PCP 10/05/15 07/26/20 Pam Hernandez MD 911 [facility] [place] [address] Assigned Behavioral Health Provider 05/30/20 08/01/21 Lázaro Horowitz MD [facility] [address] [place] [address] Assigned Rheumatology Provider 05/30/20 07/19/20 Jaime Grover MD [address] [place] [address] Assigned Gastroenterology Provider 05/30/20 11/14/21 Toni Sheth MD [address] 161415 Assigned Pediatric Specialist Provider 05/30/20 09/07/20 Toni Sheth MD [address] 033415 Assigned Surgical Provider 05/30/2006/28 Bertram Elizabeth MD [address] [place] [address] [id number] Assigned PCP 07/27/20 04/25/21 Bonny Cooley MD [address] [place] [address] [id number] Assigned PCP 04/26/21 08/15/21 Bertram Elizabeth MD [address] [place] [address] [id number] Assigned PCP 08/16/21 10/24/21 Alex Johnson MD [address] [place] [address] 818355 Assigned Rheumatology Provider 10/18/21 04/15/23 Bonny Cooley MD [address] [place] [address] Assigned PCP 10/25/21 04/02/22 [place] [address] [place] [address] Assigned PCP 04/03/22 07/23/22 [place] [address] [place] [address] Assigned PCP 10/02/22 04/29/23 documented as of this encounter
--- OUTSIDE RECORDS SUMMARY | 2024-02-03 12:50 | XMS_ITS | Encounter Summary ---
Author Organization [facility] Address [address] [place] [address] Care Team Providers Care Director Of Rooms Name Role Phone Bettye Gonzales MD Unavailable + Bonny Cooley MD Primary Care Provider [phone] Antony Chakraborty MD Unavailable Mateo Chemea MD Unavailable [phone] Ermias Colón MD Unavailable Pam Hernandez MD Unavailable [phone] Jaime Grover MD Unavailable Bonny Cooley MD Unavailable [phone] Aminata Youssef MD Primary Care Provider Bertram Elizabeth MD Unavailable [phone] Alex Johnson MD Unavailable [phone] Bonny Cooley MD Unavailable Bertram Elizabeth MD Unavailable [phone] Bertram Elizabeth MD Unavailable Reason for Visit * Reason Comments Medication Refill Encounter Details Date Type Department Care Team (Late st Contact Info) Description 05/11/2021 Refill [facility] [address] [facility] [place] [address] Bonny Cooley MD [address] [address] Medication Refill Social History Tobacco Use Types Packs/Day Years Used Date Smoking Tobacco: Former Cigarettes 2 3 0 04/23/1976 - 12/17/1977 Smokeless Tobacco: Never Alcohol Use Standard Drinks/Week Comments No 0 (1 standard drink = 0.6 oz pur e alcohol) PHQ-2 Answer Date Recorded PHQ-2 Score 4 01/31/2020 Sex and Gender Information Value Date Recorded Sex Assigned at Female 08/28/2018 12:23 AM CASING TIER Gender Identity Female 08/28/2018 12:23 AM CASING TIER Sexual Orientation Straight 10/11/2019 2: 51 PM CASING TIER documented as of this encounter Miscellaneous Notes * Telephone Encounter - Alicia Ross RN - 05/14/2021 12:58 PM CDT Refusing: patient established care with new provider in [place] MARY KATE Liu RN [facility] documented in this encounter Plan of Treatment Not on file documented as of this encounter Visit Diagnoses Diagnosis Major depressive disorder, recurrent episode, moderate (H) Major depressive disorder, recurrent episode, moderate documented in this encounter Additional Health Concerns Assessment Noted Time PHQ-9 Depression Total Score: 11 020 2:18 PM CDT documented as of this encounter Care Teams Director Of Rooms Relationship Specialty Start Date End Date Bonny Cooley MD [address] [place] [address] PCP - General Family Practice 09/30/15 06/02/21 Aminata Youssef MD [facility] [address] [place] [address] PCP - General Internal Medicine 06/03/21 Bettye Gonzales MD Internal Medicine 04/10/15 Antony Chakraborty MD [address] [place] [address] INTERNAL MEDICINE - ENDOCRINOLOGY, DIABETES & METABOLISM 11/13/15 Mateo Cheema MD [address] [place] [address] Internal Medicine 08/06/16 Ermias Colón MD [address] [place] [address] Referring Physician Neurology 09/23/16 Pam Hernandez MD [address] [place] [address] [place] [address] Assigned Behavioral Health Provider 05/30/20 08/01/21 Jaime Grover MD [address] [place] [address] Assigned Gastroenterology Provider 05/30/20 11/14/21 [place] [address] [place] [address] Assigned PCP 04/26/21 08/15/21 Bertram Elizabeth MD 2270 [facility] 200 [place] [address] Assigned PCP 08/16/21 10/24/21 Alex Johnson MD [address] [place] [address] Assigned Rheumatology Provider 10/18/21 04/15/23 Bonny Cooley MD 2270 [facility] 200 [place] [address] Assigned PCP 10/25/21 04/02/22 Bertram Elizabeth MD [address] [place] [address] Assigned PCP 04/03/22 07/23/22 Bertram Elizabeth MD [address] [place] [address] Assigned PCP 10/02/22 04/29/23 documented as of this encounter
--- OUTSIDE RECORDS SUMMARY | 2024-02-03 12:50 | XMS_ITS | Encounter Summary ---
Author Organization [facility] Address [address] [place] [address] Care Team Providers Care Dba Name Role Phone Bettye Gonzales MD Unavailable + Antony Chakraborty MD Unavailable [phone] Mateo Cheema MD Unavailable [phone] Ermias Colón MD Unavailable Aminata Youssef MD Primary Care Provider Reason for Visit * Reason Onset Date Comments Call To Schedule Appointment 12/13/2023 Encounter Details Date Type Department Care Team (Late st Contact Info) Description 12/13/2023 Telephone [facility] [address] [address] Alex Johnson MD [address] [place] [address] Call To Schedule Appointment Social History Tobacco Use Types Packs/Day Years [...] Sex Assigned at Female 08/28/2018 12:23 AM PUPPY SITTER Gender Identity Female 08/28/2018 12:23 AM PUPPY SITTER Sexual Orientation Straight 10/11/2019 2: 51 PM PUPPY SITTER documented as of this encounter Miscellaneous Notes * Telephone Encounter - George Martinez - 01/19/2024 12:37 PM CDT Spoke with pt regarding 03/[address] Johnson. Offered reschedule due to Dr. Johnson's availability at this time and pt declined and requested cancellation. Appt cancelled. * Telephone Encounter - Mansoor Salomon - 12/13/2023 9:59 AM CDT Left Voicemail (1st Attempt) for the patient to call back and reschedule the following: Appointment type: RTN RHEUM VIDEO Provider: WERO Return date: 03/23/24 Specialty phone number: [phone] Additional appointment(s) needed: NA Additonal Notes: reschedule needed. documented in this encounter Plan of Treatment Not on file documented as of this encounter Visit Diagnoses Not on filedocumented in this encounter Additional Health Concerns Assessment Noted Time PHQ-9 Depression Total Score: 11 020 2:18 PM CDT documented as of this encounter Care Teams Dba Relationship Specialty Start Date End Date Aminata Youssef MD [facility] [place] [address] PCP - General Internal Medicine 06/03/21 Bettye Gonzales MD Internal Medicine 04/10/15 Antony Chakraborty MD [address] [place] [address] INTERNAL MEDICINE - ENDOCRINOLOGY, DIABETES & METABOLISM 11/13/15 Mateo Cheema MD [address] [place] [address] Internal Medicine 08/06/16 Ermias Colón MD [address] [place] [address] Referring Physician Neurology 09/23/16 documented as of this encounter
--- OUTSIDE RECORDS SUMMARY | 2024-02-03 12:50 | XMS_ITS | Encounter Summary ---
Author Organization [facility] Address [address] [place] [address] Care Team Providers Care Charge Out Clerk Name Role Phone Bettye Gonzales MD Unavailable + Bonny Cooley MD Primary Care Provider [phone] Antony Chakraborty MD Unavailable [phone] Mateo Cheema MD Unavailable Ermias Colón MD Unavailable Bonny Cooley MD Unavailable [phone] Pam Hernandez MD Unavailable [phone] Lázaro Horowitz MD Unavailable Jaime Grover MD Unavailable Toni Sheth MD Unavailable [phone] Toni Sheth MD Unavailable [phone] Bertram Elizabeth MD Unavailable Bonny Cooley MD Unavailable [phone] Aminata Youssef MD Primary Care Provider Bertram Elizabeth MD Unavailable Alex Johnson MD Unavailable Bonny Cooley MD Unavailable [phone] Bertram Elizabeth MD Unavailable Bertram Elizabeth MD Unavailable Encounter Details Date Type Department Care Team (Late st Contact Info) Description 07/07/2020 [facility] [address] [place] [address] Dulce Connell, RN Social History Tobacco Use Types Packs/Day Years Used Date Smoking Tobacco: Former Cigarettes 2 3 0 04/23/1976 - 12/17/1977 Smokeless Tobacco: Never Alcohol Use Standard Drinks/Week Comments No 0 (1 standard drink = 0.6 oz pur e alcohol) PHQ-2 Answer Date Recorded PHQ-2 Score 4 01/31/2020 Sex and Gender Information Value Date Recorded Sex Assigned at Female 08/28/2018 12:23 AM HEAD OF PARTNER DEVELOPMENT Gender Identity Female 08/28/2018 12:23 AM HEAD OF PARTNER DEVELOPMENT Sexual Orientation Straight 10/11/2019 2: 51 PM HEAD OF PARTNER DEVELOPMENT COVID-19 Exposure Response Date Recorded In the last month, have you been in contact with someone who was confirmed or suspected to have Coronavirus / COVID-19? No / Unsure 07/08/2020 8:58 AM HEAD OF PARTNER DEVELOPMENT documented as of this encounter Plan of Treatment Not on file documented as of this encounter Visit Diagnoses Not on filedocumented in this encounter Additional Health Concerns Infection Onset Date Last Indicated Resolved Time COVID-19 06/23/2020 06/23/2020 07/14/2020 11:4 0 PM HEAD OF PARTNER DEVELOPMENT Recovered COVID 07/08/2020 07/08/2020 09/21/2020 1 1:39 PM HEAD OF PARTNER DEVELOPMENT Assessment Noted Time PHQ-9 Depression Total Score: 11 020 2:18 PM CDT documented as of this encounter Care Teams Charge Out Clerk Relationship Specialty Start Date End Date Bonny Cooley MD [address] [place] [address] PCP - General Family Practice 09/30/15 06/02/21 Aminata Youssef MD [facility] [address] [place] [address] PCP - General Internal Medicine 06/03/21 Bettye Gonzales MD Internal Medicine 04/10/15 Antony Chakraborty MD [address] [address] INTERNAL MEDICINE - ENDOCRINOLOGY, DIABETES & METABOLISM 11/13/15 Mateo Cheema MD [address] [address] Internal Medicine 08/06/16 Ermias Colón MD [address] [address] Referring Physician Neurology 09/23/16 [place] [address] [place] [address] Assigned PCP 10/05/15 07/26/20 Pam Hernandez MD [address] [place] [address] [place] [address] Assigned Behavioral Health Provider 05/30/20 08/01/21 Lázaro Horowitz MD [address] [address] Assigned Rheumatology Provider 05/30/20 07/19/20 Jaime Grover MD [address] [place] [address] Assigned Gastroenterology Provider 05/30/20 11/14/21 Toni Sheth MD [address] [address] Assigned Pediatric Specialist Provider 05/30/20 09/07/20 Toni Sheth MD [address] [address] Assigned Surgical Provider 05/30/2006/28 Bertram Elizabeth MD [address] [address] Assigned PCP 07/27/20 04/25/21 Bonny Cooley MD [address] [address] Assigned PCP 04/26/21 08/15/21 Bertram Elizabeth MD [address] [address] Assigned PCP 08/16/21 10/24/21 Alex Johnson MD [address] [place] [address] Assigned Rheumatology Provider 10/18/21 04/15/23 Bonny Cooley MD [address] [place] [address] Assigned PCP 10/25/21 04/02/22 Bertram Elizabeth MD [address] [place] [address] Assigned PCP 04/03/22 07/23/22 Bertram Elizabeth MD [address] [place] [address] Assigned PCP 10/02/22 04/29/23 documented as of this encounter
--- OUTSIDE RECORDS SUMMARY | 2024-02-03 12:51 | XMS_ITS | Encounter Summary ---
Author Organization [facility] Address [address] [place] [address] Care Team Providers Care Supervisor [place] Name Role Phone Bettye Gonzales MD Unavailable + Bonny Cooley MD Primary Care Provider [phone] Antony Chakraborty MD Unavailable Mateo Chemea MD Unavailable [phone] Ermias Colón MD Unavailable Bonny Cooley MD Unavailable [phone] Pam Hernandez MD Unavailable [phone] Lázaro Horowitz MD Unavailable Jaime Grover MD Unavailable Toni Sheth MD Unavailable [phone] Toni Sheth MD Unavailable [phone] Bertram Elizabeth MD Unavailable Bonny Cooley MD Unavailable [phone] Aminata Youssef MD Primary Care Provider Bertrma Elizabeth MD Unavailable Alex Johnson MD Unavailable Bonny Cooley MD Unavailable [phone] Bertram Elizabeth MD Unavailable Bertram Elizabeth MD Unavailable Encounter Details Date Type Department Care Team (Late st Contact Info) Description 02/27/[address] [facility] [address] [place] [address] [place] Social History Tobacco Use Types Packs/Day Years Used Date Smoking Tobacco: Former Cigarettes 2 3 0 04/23/1976 - 12/17/1977 Smokeless Tobacco: Never Alcohol Use Standard Drinks/Week Comments No 0 (1 standard drink = 0.6 oz pur e alcohol) PHQ-2 Answer Date Recorded PHQ-2 Score 0 08/15/2018 Sex and Gender Information Value Date Recorded Sex Assigned at Female 08/28/2018 12:23 AM WORKFLOW DEVELOPER Gender Identity Female 08/28/2018 12:23 AM WORKFLOW DEVELOPER Sexual Orientation Straight 10/11/2019 2: 51 PM WORKFLOW DEVELOPER documented as of this encounter Plan of Treatment Not on file documented as of this encounter Visit Diagnoses Not on filedocumented in this encounter Additional Health Concerns Infection Onset Date Last Indicated Resolved Time COVID-19 06/23/2020 06/23/2020 07/14/2020 11:4 0 PM WORKFLOW DEVELOPER Recovered COVID 07/08/2020 07/08/2020 09/21/2020 1 1:39 PM WORKFLOW DEVELOPER Assessment Noted Time PHQ-9 Depression Total Score: 11 019 2:43 PM CDT documented as of this encounter Care Teams Supervisor [place] Relationship Specialty Start Date End Date Bonny Cooley MD [address] [place] [address] PCP - General Family Practice 09/30/15 06/02/21 Aminata Youssef MD [facility] [address] [place] [address] PCP - General Internal Medicine 06/03/21 Bettye Gonzales MD Internal Medicine 04/10/15 Antony Chakraborty MD [address] [place] [address] INTERNAL MEDICINE - ENDOCRINOLOGY, DIABETES & METABOLISM 11/13/15 Mateo Cheema MD [address] [place] [address] Internal Medicine 08/06/16 Ermias Colón MD [address] [place] [address] Referring Physician Neurology 09/23/16 [place] [address] [place] [address] Assigned PCP 10/05/15 07/26/20 Pam Hernandez MD [address] [place] [address] [place] [address] Assigned Behavioral Health Provider 05/30/20 08/01/21 Lázaro Horowitz MD [facility] [address] [place] [address] Assigned Rheumatology Provider 05/30/20 07/19/20 Jaime Grover MD [address] [place] [address] Assigned Gastroenterology Provider 05/30/20 11/14/21 Toni Sheth MD [address] [address] Assigned Pediatric Specialist Provider 05/30/20 09/07/20 Toni Sheth MD [address] [address] Assigned Surgical Provider 05/30/2006/28 Bertram Elizabeth MD [address] [address] Assigned PCP 07/27/20 04/25/21 Bonny Cooley MD [address] [address] Assigned PCP 04/26/21 08/15/21 Bertram Elizabeth MD [address] [address] Assigned PCP 08/16/21 10/24/21 Alex Johnson MD [address] [place] [address] Assigned Rheumatology Provider 10/18/21 04/15/23 Bonny Cooley MD [address] [address] Assigned PCP 10/25/21 04/02/22 Bertram Elizabeth MD [address] [address] Assigned PCP 04/03/22 07/23/22 Bertram Elizabeth MD [address] [address] Assigned PCP 10/02/22 04/29/23 documented as of this encounter
--- OUTSIDE RECORDS SUMMARY | 2024-02-03 12:51 | XMS_ITS | Encounter Summary ---
Author Organization [facility] Address [address] [place] [address] Care Team Providers Care Farm Instructor Name Role Phone Bettye Gonzales MD Unavailable + Bonny Cooley MD Primary Care Provider Antony Chakraborty MD Unavailable [phone] Mateo Cheema MD Unavailable [phone] Ermias Colón MD Unavailable Bonny Cooley MD Unavailable [phone] Pam Hernandez MD Unavailable [phone] Lázaro Horowitz MD Unavailable Jaiem Grover MD Unavailable Toni Sheth MD Unavailable [phone] Toni Sheth MD Unavailable [phone] Bertram Elizabeth MD Unavailable Bonny Cooley MD Unavailable [phone] Aminata Youssef MD Primary Care Provider Bertram Elizabeth MD Unavailable [phone] Alex Johnson MD Unavailable [phone] Bonny Cooley MD Unavailable [phone] Bertram Elizabeth MD Unavailable Bertram Elizabeth MD Unavailable Encounter Details Date Type Department Care Team (Late st Contact Info) Description 06/25/2020 [facility] [address] [address] Jaime Grover MD [address] [place] [address] Social History Tobacco Use Types Packs/Day Years Used Date Smoking Tobacco: Former Cigarettes 2 3 0 04/23/1976 - 12/17/1977 Smokeless Tobacco: Never Alcohol Use Standard Drinks/Week Comments No 0 (1 standard drink = 0.6 oz pur e alcohol) PHQ-2 Answer Date Recorded PHQ-2 Score 4 01/31/2020 Sex and Gender Information Value Date Recorded Sex Assigned at Female 08/28/2018 12:23 AM DISPLAY FABRICATOR Gender Identity Female 08/28/2018 12:23 AM DISPLAY FABRICATOR Sexual Orientation Straight 10/11/2019 2: 51 PM DISPLAY FABRICATOR COVID-19 Exposure Response Date Recorded In the last month, have you been in contact with someone who was confirmed or suspected to have Coronavirus / COVID-19? No / Unsure 06/23/2020 10:33 AM DISPLAY FABRICATOR documented as of this encounter Plan of Treatment Not on file documented as of this encounter Visit Diagnoses Not on filedocumented in this encounter Additional Health Concerns Infection Onset Date Last Indicated Resolved Time COVID-19 06/23/2020 06/23/2020 07/14/2020 11:4 0 PM DISPLAY FABRICATOR Recovered COVID 07/08/2020 07/08/2020 09/21/2020 1 1:39 PM DISPLAY FABRICATOR Assessment Noted Time PHQ-9 Depression Total Score: 11 020 2:18 PM CDT documented as of this encounter Care Teams Farm Instructor Relationship Specialty Start Date End Date Bonny Cooley MD [address] [place] [address] PCP - General Family Practice 09/30/15 06/02/21 Aminata Youssef MD [facility] [address] [place] [address] PCP - General Internal Medicine 06/03/21 Bettye Gonzales MD Internal Medicine 04/10/15 Antony Chakraborty MD [address] [address] INTERNAL MEDICINE - ENDOCRINOLOGY, DIABETES & METABOLISM 11/13/15 Mateo Cheema MD [address] [place] [address] [address] Internal Medicine 08/06/16 Ermias Colón MD [address] [address] Referring Physician Neurology 09/23/16 Bonny Cooley MD [address] [address] Assigned PCP 10/05/15 07/26/20 Pam Hernandez MD 911 [facility] [place] [address] Assigned Behavioral Health Provider 05/30/20 08/01/21 UdLázaro martínez MD [facility] [address] [place] [address] Assigned Rheumatology Provider 05/30/20 07/19/20 Jaime Grover MD [address] [place] [address] Assigned Gastroenterology Provider 05/30/20 11/14/21 Toni Sheth MD [address] 309475 Assigned Pediatric Specialist Provider 05/30/20 09/07/20 Toni Sheth MD [address] 707555 Assigned Surgical Provider 05/30/2006/28 [place] [address] [place] [address] [id number] Assigned PCP 07/27/20 04/25/21 [place] [address] [place] [address] [id number] Assigned PCP 04/26/21 08/15/21 [place] [address] [place] [address] [id number] Assigned PCP 08/16/21 10/24/21 Alex Johnson MD [address] [place] [address]235 Assigned Rheumatology Provider 10/18/21 04/15/23 Bonny Cooley MD [address] [place] [address] Assigned PCP 10/25/21 04/02/22 [place] [address] [place] [address] Assigned PCP 04/03/22 07/23/22 [place] [address] [place] [address] Assigned PCP 10/02/22 04/29/23 documented as of this encounter
--- OUTSIDE RECORDS SUMMARY | 2024-02-03 12:51 | XMS_ITS | Encounter Summary ---
Author Organization [facility] Address [address] [place] [address] Care Team Providers Care Sweet Pickle Maker Name Role Phone Bettye Gonzales MD Unavailable + Bonny Cooley MD Primary Care Provider Antony Chakraborty MD Unavailable Mateo Cheema MD Unavailable [phone] Ermias Colón MD Unavailable Bonny Cooley MD Unavailable [phone] Pam Hernandez MD Unavailable [phone] Lázaro Horowitz MD Unavailable Jaime Grover MD Unavailable Toni Sheth MD Unavailable [phone] Toni Sheth MD Unavailable [phone] Bertram Elizabeth MD Unavailable [phone] Bonny Cooley MD Unavailable [phone] Aminata Youssef MD Primary Care Provider Bertram Elizabeth MD Unavailable [phone] Alex Johnson MD Unavailable Bonny Cooley MD Unavailable Bertram Elizabeth MD Unavailable [phone] Bertram Elizabeth MD Unavailable Reason for Visit * Reason Onset Date Comments Refill Request 12/02/2019 CELECOXIB 100MG CAPS Encounter Details Date Type Department Care Team (Late st Contact Info) Description 12/02/[address] [address] Bonny Cooley MD [address] [phone] Refill Request (CELECOXIB 100MG CAPS ) Social History Tobacco Use Types Packs/Day Years Used Date Smoking Tobacco: Former Cigarettes 2 3 0 04/23/1976 - 12/17/1977 Smokeless Tobacco: Never Alcohol Use Standard Drinks/Week Comments No 0 (1 standard drink = 0.6 oz pur e alcohol) PHQ-2 Answer Date Recorded PHQ-2 Score 4 12/06/2019 Sex and Gender Information Value Date Recorded Sex Assigned at Female 08/28/2018 12:23 AM STEREOTYPER HELPER Gender Identity Female 08/28/2018 12:23 AM STEREOTYPER HELPER Sexual Orientation Straight 10/11/2019 2: 51 PM STEREOTYPER HELPER COVID-19 Exposure Response Date Recorded In the last month, have you been in contact with someone who was confirmed or suspected to have Coronavirus / COVID-19? No / Unsure 11/23/2019 2:47 PM CDT documented as of this encounter Miscellaneous Notes * Telephone Encounter - Kelly Fritz RN - 12/05/2019 11:08 AM CDT Routing refill request to provider for review/approval because: --Patient does not meet age criteria for RN protocol. * Telephone Encounter - Sari Kessler - 12/03/2019 11:02 AM CDT Requested Prescriptions Pending Prescriptions Disp Refills ??? celecoxib (CELEBREX) 100 MG capsule [Pharmacy Med Name: CELECOXIB 100MG CAPS] 90 capsule 1 Sig: TAKE ONE CAPSULE BY MOUTH EVERY EVENING Last Written Prescription Date: 03/28/2019 Last Fill Quantity: 90 capsule, # refills: 1 Last Office Visit: 10/18/2019 Future Office Visit: Next 5 appointments (look out 90 days) Dec 06, 2019 2:15 PM CDT Telephone Visit with Pam Hernandez MD [facility] ([facility]) [address] [facility] [address] NSAID Medications Failed - 12/02/2019 4:45 PM Failed - Patient is age 6-64 years Passed - Blood pressure under 140/90 in past 12 months BP Readings from Last 3 Encounters: 10/18/19 128/64 09/04/19 115/68 07/24/19 130/80 Passed - Normal ALT on file in past 12 months Recent Labs Lab Test 11/23/19 1452 ALT 31 Passed - Normal AST on file in past 12 months Recent Labs Lab Test 11/23/19 1452 AST 18 Passed - Recent (12 mo) or future (30 days) visit within the authorizing provider's specialty Patient has had an office visit with the authorizing provider or a provider within the authorizing providers department within the previous 12 mos or has a future within next 30 days. See Patient Info tab in inbasket, or Choose Columns in Meds & Orders section of the refill encounter. Passed - Normal CBC on file in past 12 months Recent Labs Lab Test 11/23/19 1452 WBC 7.1 RBC 4.31 HGB 13.6 HCT 42.9 PLT 264 Passed - Medication is active on med list Passed - No active on record Passed - Normal serum creatinine on file in past 12 months Recent Labs Lab Test 11/23/19 1452 CR 0.79 Ok to refill medication if creatinine is low Passed - No positive test in past 12 months documented in this encounter Plan of Treatment Not on file documented as of this encounter Visit Diagnoses Diagnosis Osteoarthritis, unspecified osteoarthritis type, unspecified site documented in this encounter Additional Health Concerns Infection Onset Date Last Indicated Resolved Time COVID-19 06/23/2020 06/23/2020 07/14/2020 11:4 0 PM STEREOTYPER HELPER Recovered COVID 07/08/2020 07/08/2020 09/21/2020 1 1:39 PM STEREOTYPER HELPER Assessment Noted Time PHQ-9 Depression Total Score: 15 020 2:41 PM STEREOTYPER HELPER documented as of this encounter Care Teams Sweet Pickle Maker Relationship Specialty Start Date End Date Bonny Cooley MD [address] [place] [address] PCP - General Family Practice 09/30/15 06/02/21 Aminata Youssef MD [facility] [address] [place] [address] PCP - General Internal Medicine 06/03/21 Bettye Gonzales MD MD Internal Medicine 04/10/15 Antony Chakraborty MD [address] [address] INTERNAL MEDICINE - ENDOCRINOLOGY, DIABETES & METABOLISM 11/13/15 Mateo Cheema MD [address] 043295 Internal Medicine 08/06/16 Ermias Colón MD [address] 214445 Referring Physician Neurology 09/23/16 Bonny Cooley MD [address] [address] Assigned PCP 10/05/15 07/26/20 Pam Hernandez MD [address] [place] [address] [place] [address] Assigned Behavioral Health Provider 05/30/20 08/01/21 Lázaro Horowitz MD [address] [address] Assigned Rheumatology Provider 05/30/20 07/19/20 Jaime Grover MD [address] [place] [address] Assigned Gastroenterology Provider 05/30/20 11/14/21 Toni Sheth MD [address] [address] Assigned Pediatric Specialist Provider 05/30/20 09/07/20 Toni Sheth MD [address] [address] Assigned Surgical Provider 05/30/2006/28 Bertram Elizabeth MD [address] [address] Assigned PCP 07/27/20 04/25/21 Bonny Cooley MD [address] [address] Assigned PCP 04/26/21 08/15/21 Bertram Elizabeth MD [address] [address] Assigned PCP 08/16/21 10/24/21 Alex Johnson MD [address] [place] [address] Assigned Rheumatology Provider 10/18/21 04/15/23 Bonny Cooley MD [address] [address] Assigned PCP 10/25/21 04/02/22 Bertram Elizabeth MD [address] [address] Assigned PCP 04/03/22 07/23/22 Bertram Elizabeth MD [address] [address] Assigned PCP 10/02/22 04/29/23 documented as of this encounter
--- OUTSIDE RECORDS SUMMARY | 2024-02-03 12:51 | XMS_ITS | Encounter Summary ---
Author Organization [facility] Address [address] [place] [address] Care Team Providers Care Advanced Practice Professional Name Role Phone Bettye Gonzales MD Unavailable + Bonny Cooley MD Primary Care Provider [phone] Antony Chakraborty MD Unavailable Mateo Cheema MD Unavailable Ermias Colón MD Unavailable Bonny Cooley MD Unavailable [phone] Pam Hernandez MD Unavailable [phone] Lázaro Horowitz MD Unavailable Jaime Grover MD Unavailable Toni Sheth MD Unavailable [phone] Toni Sheth MD Unavailable [phone] Bertram Elizabeth MD Unavailable Bonny Cooley MD Unavailable [phone] Aminata Youssef MD Primary Care Provider Bertram Elizabeth MD Unavailable Alex Johnson MD Unavailable Bonny Cooley MD Unavailable [phone] Bertram Elizabeth MD Unavailable Bertram Elizabeth MD Unavailable Encounter Details Date Type Department Care Team (Late st Contact Info) Description 05/24/2019 [facility] [place] [place] [facility] [address] [address] Toni Del Angel MD [facility] 420 [facility] [address] [place] [address] Social History Tobacco Use Types Packs/Day Years Used Date Smoking Tobacco: Former Cigarettes 2 3 0 04/23/1976 - 12/17/1977 Smokeless Tobacco: Never Alcohol Use Standard Drinks/Week Comments No 0 (1 standard drink = 0.6 oz pur e alcohol) PHQ-2 Answer Date Recorded PHQ-2 Score 4 03/28/2019 Sex and Gender Information Value Date Recorded Sex Assigned at Female 08/28/2018 12:23 AM JUDGE'S CLERK Gender Identity Female 08/28/2018 12:23 AM JUDGE'S CLERK Sexual Orientation Straight 10/11/2019 2: 51 PM JUDGE'S CLERK documented as of this encounter Plan of Treatment Not on file documented as of this encounter Visit Diagnoses Not on filedocumented in this encounter Additional Health Concerns Infection Onset Date Last Indicated Resolved Time COVID-19 06/23/2020 06/23/2020 07/14/2020 11:4 0 PM JUDGE'S CLERK Recovered COVID 07/08/2020 07/08/2020 09/21/2020 1 1:39 PM JUDGE'S CLERK Assessment Noted Time PHQ-9 Depression Total Score: 11 019 2:53 PM CDT documented as of this encounter Care Teams Advanced Practice Professional Relationship Specialty Start Date End Date Bonny Cooley MD [address] [place], [place] [phone] PCP - General Family Practice 09/30/15 06/02/21 Aminata Youssef MD [facility] [address] [place] [address] PCP - General Internal Medicine 06/03/21 Bettye Gonzales MD Internal Medicine 04/10/15 Antony Chakraborty MD [address] [place] [address] [phone] MD INTERNAL MEDICINE - ENDOCRINOLOGY, DIABETES & METABOLISM 11/13/15 Mateo Cheema MD [address] [address]359[address] MD Internal Medicine 08/06/16 Ermias Colón MD [address] 264[address] Referring Physician Neurology 09/23/16 Bonny Cooley MD [address] [phone] Assigned PCP 10/05/15 07/26/20 Pam Hernandez MD [address] [facility] [address] Assigned Behavioral Health Provider 05/30/20 08/01/21 Lázaro Horowitz MD [facility] [address] [place] [address] Assigned Rheumatology Provider 05/30/20 07/19/20 Jaime Grover MD [address] [place] [address] Assigned Gastroenterology Provider 05/30/20 11/14/21 Toni Sheth MD [address] [address] Assigned Pediatric Specialist Provider 05/30/20 09/07/20 Toni Sheth MD [address] [address] Assigned Surgical Provider 05/30/2006/28 Bertram Elizabeth MD [address] [place] [address] Assigned PCP 07/27/20 04/25/21 Bonny Cooley MD [address] [place] [address] Assigned PCP 04/26/21 08/15/21 Bertram Elizabeth MD [address] [place] [address] Assigned PCP 08/16/21 10/24/21 Alex Johnson MD [address] [place] [address] Assigned Rheumatology Provider 10/18/21 04/15/23 Bonny Cooley MD [address] [place] [address] Assigned PCP 10/25/21 04/02/22 Bertram Elizabeth MD [address] [place] [address] Assigned PCP 04/03/22 07/23/22 Bertram Elizabeth MD [address] [place] [address] Assigned PCP 10/02/22 04/29/23 documented as of this encounter
--- OUTSIDE RECORDS SUMMARY | 2024-02-03 12:51 | XMS_ITS | Encounter Summary ---
Author Organization [facility] Address [address] [place] [address] Care Team Providers Care Pediatric Physical Therapist Name Role Phone Bettye Gonzales MD Unavailable + Bonny Cooley MD Primary Care Provider Antony Chakraborty MD Unavailable Mateo Cheema MD Unavailable Ermias Colón MD Unavailable Bonny Cooley MD Unavailable [phone] Bonny Cooley MD Unavailable [phone] Pam Hernandez MD Unavailable [phone] Lázaro Horowitz MD Unavailable Jaime Grover MD Unavailable Toni Sheth MD Unavailable [phone] Toni Sheth MD Unavailable [phone] Bertram Elizabeth MD Unavailable Bonny Cooley MD Unavailable [phone] Aminata Youssef MD Primary Care Provider Bertram Elizabeth MD Unavailable Alex Johnson MD Unavailable [phone] Bonny Cooley MD Unavailable [phone] Bertram Elizabeth MD Unavailable Bertram Elizabeth MD Unavailable [phone] Encounter Details Date Type Department Care Team (Late st Contact Info) Description 08/07/2018 [place] [id number] [address] [place] [address] [facility] Social History Tobacco Use Types Packs/Day Years Used Date Smoking Tobacco: Former Cigarettes 2 3 0 04/23/1976 - 12/17/1977 Smokeless Tobacco: Never Alcohol Use Standard Drinks/Week Comments No 0 (1 standard drink = 0.6 oz pur e alcohol) Sex and Gender Information Value Date Recorded Sex Assigned at Female 08/28/2018 12:23 AM LABEL PRINTER Gender Identity Female 08/28/2018 12:23 AM LABEL PRINTER Sexual Orientation Straight 10/11/2019 2: 51 PM LABEL PRINTER documented as of this encounter Plan of Treatment Not on file documented as of this encounter Visit Diagnoses Not on filedocumented in this encounter Additional Health Concerns Infection Onset Date Last Indicated Resolved Time COVID-19 06/23/2020 06/23/2020 07/14/2020 11:4 0 PM LABEL PRINTER Recovered COVID 07/08/2020 07/08/2020 09/21/2020 1 1:39 PM LABEL PRINTER Assessment Noted Time PHQ-9 Depression Total Score: 13 018 7:20 AM LABEL PRINTER documented as of this encounter Care Teams Pediatric Physical Therapist Relationship Specialty Start Date End Date Bonny Cooley MD [address] [place], [place] [phone] PCP - General Family Practice 09/30/15 06/02/21 Bonny Cooley MD [address] [address] PCP - Assigned PCP 10/05/15 10/10/18 Aminata Youssef MD [facility] [address] [place] [address] PCP - General Internal Medicine 06/03/21 Bettye Gonzales MD Internal Medicine 04/10/15 Antony Chakraborty MD [address] [address] INTERNAL MEDICINE - ENDOCRINOLOGY, DIABETES & METABOLISM 11/13/15 Mateo Cheema MD [address] [address] Internal Medicine 08/06/16 Ermias Colón MD [address] [address] Referring Physician Neurology 09/23/16 Bonny Cooley MD [address] [address] Assigned PCP 10/05/15 07/26/20 Pam Hernandez MD [address] [facility] [place] [address] Assigned Behavioral Health Provider 05/30/20 08/01/21 Lázaro Horowitz MD NPI: [id number] [place] [address] [place] [address] [place] [address] Assigned Rheumatology Provider 05/30/20 07/19/20 Jaime Grover MD [address] [place] [address] Assigned Gastroenterology Provider 05/30/20 11/14/21 Toni Sheth MD [address] [address] Assigned Pediatric Specialist Provider 05/30/20 09/07/20 Toni Sheth MD [address] [address] Assigned Surgical Provider 05/30/2006/28 Bertram Elizabeth MD 2270 [facility] 200 [place] [address] Assigned PCP 07/27/20 04/25/21 Bonny Cooley MD [address] [address] Assigned PCP 04/26/21 08/15/21 Bertram Elizabeth MD [address] [address] Assigned PCP 08/16/21 10/24/21 Alex Johnson MD [address] [place] [address] Assigned Rheumatology Provider 10/18/21 04/15/23 Bonny Coloey MD [address] [address] Assigned PCP 10/25/21 04/02/22 Bertram Elizabeth MD [address] [address] Assigned PCP 04/03/22 07/23/22 Bertram Elizabeth MD [address] [address] Assigned PCP 10/02/22 04/29/23 documented as of this encounter
--- OUTSIDE RECORDS SUMMARY | 2024-02-03 12:51 | XMS_ITS | Encounter Summary ---
Author Organization [place] Address [address] [place] [address] Care Team Providers Care Front End Drupal Developer Name Role Phone Bettye Gonzales MD Unavailable + Bonny Cooley MD Primary Care Provider [phone] Antony Chakraborty MD Unavailable Mateo Cheema MD Unavailable Ermias Colón MD Unavailable Bonny Cooley MD Unavailable [phone] Pam Hernandez MD Unavailable [phone] Lázaro Horowitz MD Unavailable Jaime Grover MD Unavailable Toni Sheth MD Unavailable [phone] Toni Sheth MD Unavailable [phone] Bertram Elizabeth MD Unavailable Bonny Cooley MD Unavailable [phone] Aminata Youssef MD Primary Care Provider Bertram Elizabeth MD Unavailable Alex Johnson MD Unavailable Bonny Cooley MD Unavailable [phone] Bertram Elizabeth MD Unavailable [phone] Bertram Elizabeth MD Unavailable Encounter Details Date Type Department Care Team (Late st Contact Info) Description 06/23/2020 [facility] [place] [facility] [address] [place] [address] Denia Allen Social History Tobacco Use Types Packs/Day Years Used Date Smoking Tobacco: Former Cigarettes 2 3 0 04/23/1976 - 12/17/1977 Smokeless Tobacco: Never Alcohol Use Standard Drinks/Week Comments No 0 (1 standard drink = 0.6 oz pur e alcohol) PHQ-2 Answer Date Recorded PHQ-2 Score 4 01/31/2020 Sex and Gender Information Value Date Recorded Sex Assigned at Female 08/28/2018 12:23 AM SPECIAL FORCES ENGINEER SERGEANT Gender Identity Female 08/28/2018 12:23 AM SPECIAL FORCES ENGINEER SERGEANT Sexual Orientation Straight 10/11/2019 2: 51 PM SPECIAL FORCES ENGINEER SERGEANT COVID-19 Exposure Response Date Recorded In the last month, have you been in contact with someone who was confirmed or suspected to have Coronavirus / COVID-19? No / Unsure 06/23/2020 10:33 AM SPECIAL FORCES ENGINEER SERGEANT documented as of this encounter Plan of Treatment Not on file documented as of this encounter Visit Diagnoses Not on filedocumented in this encounter Additional Health Concerns Infection Onset Date Last Indicated Resolved Time COVID-19 06/23/2020 06/23/2020 07/14/2020 11:4 0 PM SPECIAL FORCES ENGINEER SERGEANT Recovered COVID 07/08/2020 07/08/2020 09/21/2020 1 1:39 PM SPECIAL FORCES ENGINEER SERGEANT Assessment Noted Time PHQ-9 Depression Total Score: 11 020 2:18 PM CDT documented as of this encounter Care Teams Front End Drupal Developer Relationship Specialty Start Date End Date Bonny Cooley MD [address] [place], [place] [phone] PCP - General Family Practice 09/30/15 06/02/21 Aminata Youssef MD [facility] [address] [place] [address] PCP - General Internal Medicine 06/03/21 Bettye Gonzales MD Internal Medicine 04/10/15 Antony Chakraborty MD 420 [facility] [address] [address] MD INTERNAL MEDICINE - ENDOCRINOLOGY, DIABETES & METABOLISM 11/13/15 Mateo Cheema MD 420 [facility] [address] 043665 Internal Medicine 08/06/16 Ermias Colón MD [address] [place] [address] 698635 Referring Physician Neurology 09/23/16 Bonny Cooley MD [address] [id number] Assigned PCP 10/05/15 07/26/20 Pam Hernandez MD [address] [facility] [place] [address] Assigned Behavioral Health Provider 05/30/20 08/01/21 Lázaro Horowitz MD [address] [address] Assigned Rheumatology Provider 05/30/20 07/19/20 Jaime Grover MD [address] [place] [address] Assigned Gastroenterology Provider 05/30/20 11/14/21 Toni Sheth MD [address] [address] Assigned Pediatric Specialist Provider 05/30/20 09/07/20 Toni Sheth MD [address] [address] Assigned Surgical Provider 05/30/2006/28 Bertram Elizabeth MD [address] [place] [address] Assigned PCP 07/27/20 04/25/21 Bonny Cooley MD [address] [place] [address] Assigned PCP 04/26/21 08/15/21 Bertram Elizabeth MD [address] [place] [address] Assigned PCP 08/16/21 10/24/21 Alex Johnson MD [address] [place] [address] Assigned Rheumatology Provider 10/18/21 04/15/23 Bonny Cooley MD [address] [place] [address] Assigned PCP 10/25/21 04/02/22 Bertram Elizabeth MD [address] [place] [address] Assigned PCP 04/03/22 07/23/22 Bertram Elizabeth MD [address] [place] [address] Assigned PCP 10/02/22 04/29/23 documented as of this encounter
--- OUTSIDE RECORDS SUMMARY | 2024-02-03 12:51 | XMS_ITS | Encounter Summary ---
Author Organization [facility] Address [address] [place] [address] Care Team Providers Care Pharmacy Analyst Name Role Phone Bettye Gonzales MD Unavailable + Bonny Cooley MD Primary Care Provider [phone] Antony Chakraborty MD Unavailable [phone] Mateo Cheema MD Unavailable [phone] Ermias Colón MD Unavailable Bonny Cooley MD Unavailable [phone] Pam Hernandez MD Unavailable [phone] Lázaro Horowitz MD Unavailable Jaime Grover MD Unavailable Toni Sheth MD Unavailable [phone] Toni Sheth MD Unavailable [phone] Bertram Elizabeth MD Unavailable Bonny Cooley MD Unavailable [phone] Aminata Youssef MD Primary Care Provider Bertram Elizabeth MD Unavailable Alex Johnson MD Unavailable Bonny Cooley MD Unavailable [phone] Bertram Elizabeth MD Unavailable Bertram Elizabeth MD Unavailable Encounter Details Date Type Department Care Team (Late st Contact Info) Description 06/09/2020 [facility] [address] [address] Jaime Grover MD [address] [place] [address] Social History Tobacco Use Types Packs/Day Years Used Date Smoking Tobacco: Former Cigarettes 2 3 0 04/23/1976 - 12/17/1977 Smokeless Tobacco: Never Alcohol Use Standard Drinks/Week Comments No 0 (1 standard drink = 0.6 oz pur e alcohol) PHQ-2 Answer Date Recorded PHQ-2 Score 4 01/31/2020 Sex and Gender Information Value Date Recorded Sex Assigned at Female 08/28/2018 12:23 AM PV DESIGN AND INSTALLATION TECHNICIAN Gender Identity Female 08/28/2018 12:23 AM PV DESIGN AND INSTALLATION TECHNICIAN Sexual Orientation Straight 10/11/2019 2: 51 PM PV DESIGN AND INSTALLATION TECHNICIAN COVID-19 Exposure Response Date Recorded In the last month, have you been in contact with someone who was confirmed or suspected to have Coronavirus / COVID-19? No / Unsure 06/06/2020 10:42 AM CDT documented as of this encounter Plan of Treatment Not on file documented as of this encounter Visit Diagnoses Not on filedocumented in this encounter Additional Health Concerns Infection Onset Date Last Indicated Resolved Time COVID-19 06/23/2020 06/23/2020 07/14/2020 11:4 0 PM PV DESIGN AND INSTALLATION TECHNICIAN Recovered COVID 07/08/2020 07/08/2020 09/21/2020 1 1:39 PM PV DESIGN AND INSTALLATION TECHNICIAN Assessment Noted Time PHQ-9 Depression Total Score: 11 020 2:18 PM CDT documented as of this encounter Care Teams Pharmacy Analyst Relationship Specialty Start Date End Date Bonny Cooley MD [address] [place] [address] PCP - General Family Practice 09/30/15 06/02/21 Aminata Youssef MD [facility] [address] [place] [address] PCP - General Internal Medicine 06/03/21 Bettye Gonzales MD Internal Medicine 04/10/15 Antony Chakraborty MD [address] [address] INTERNAL MEDICINE - ENDOCRINOLOGY, DIABETES & METABOLISM 11/13/15 Mateo Cheema MD [address] [place] [address] [address] Internal Medicine 08/06/16 Ermias Colón MD [address] [address] Referring Physician Neurology 09/23/16 Bonny Cooley MD [address] [address] Assigned PCP 10/05/15 07/26/20 Pam Hernandez MD 911 [facility] [place] [address] Assigned Behavioral Health Provider 05/30/20 08/01/21 Lázaro Horowitz MD [facility] [address] [place] [address] Assigned Rheumatology Provider 05/30/20 07/19/20 Jaime Grover MD [address] [place] [address] Assigned Gastroenterology Provider 05/30/20 11/14/21 Toni Sheth MD [address] [address] Assigned Pediatric Specialist Provider 05/30/20 09/07/20 Toni Sheth MD [address] 175075 Assigned Surgical Provider 05/30/2006/28 Bertram Elizabeth MD [address] [place] [address] [id number] Assigned PCP 07/27/20 04/25/21 Bonny Cooley MD [address] [place] [address] [id number] Assigned PCP 04/26/21 08/15/21 Bertram Elizabeth MD [address] [place] [address] [id number] Assigned PCP 08/16/21 10/24/21 Alex Johnson MD [address] [place] [address] 125975 Assigned Rheumatology Provider 10/18/21 04/15/23 Bonny Cooley MD [address] [place] [address] Assigned PCP 10/25/21 04/02/22 [place] [address] [place] [address] Assigned PCP 04/03/22 07/23/22 [place] [address] [place] [address] Assigned PCP 10/02/22 04/29/23 documented as of this encounter
--- OUTSIDE RECORDS SUMMARY | 2024-02-03 12:51 | XMS_ITS | Encounter Summary ---
Author Organization [place] Address [address] [place] [address] Care Team Providers Care Legal Secretary Receptionist Name Role Phone Bettye Gonzales MD Unavailable + Bonny Cooley MD Primary Care Provider Antony Chakraborty MD Unavailable [phone] Mateo Cheema MD Unavailable [phone] Ermias Colón MD Unavailable Bonny Cooley MD Unavailable [phone] Pam Hernandez MD Unavailable [phone] Lázaro Horowitz MD Unavailable Jaime Grover MD Unavailable Toni Sheth MD Unavailable [phone] Toni Sheth MD Unavailable [phone] Bertram Elizabeth MD Unavailable Bonny Cooley MD Unavailable [phone] Aminata Youssef MD Primary Care Provider Bertram Elizabeth MD Unavailable Alex Johnson MD Unavailable Bonny Cooley MD Unavailable [phone] Bertram Elizabeth MD Unavailable Bertram Elizabeth MD Unavailable Encounter Details Date Type Department Care Team (Late st Contact Info) Description 06/08/2020 [facility] [address] [address] Jaime Grover MD [address] [place] [address] Social History Tobacco Use Types Packs/Day Years Used Date Smoking Tobacco: Former Cigarettes 2 3 0 04/23/1976 - 12/17/1977 Smokeless Tobacco: Never Alcohol Use Standard Drinks/Week Comments No 0 (1 standard drink = 0.6 oz pur e alcohol) PHQ-2 Answer Date Recorded PHQ-2 Score 4 01/31/2020 Sex and Gender Information Value Date Recorded Sex Assigned at Female 08/28/2018 12:23 AM GAMBLING MONITOR Gender Identity Female 08/28/2018 12:23 AM GAMBLING MONITOR Sexual Orientation Straight 10/11/2019 2: 51 PM GAMBLING MONITOR COVID-19 Exposure Response Date Recorded In the [...] COVID-19 06/23/2020 06/23/2020 07/14/2020 11:4 0 PM GAMBLING MONITOR Recovered COVID 07/08/2020 07/08/2020 09/21/2020 1 1:39 PM GAMBLING MONITOR Assessment Noted Time PHQ-9 Depression Total Score: 11 020 2:18 PM CDT documented as of this encounter Care Teams Legal Secretary Receptionist Relationship Specialty Start Date End Date Bonny Cooley MD [address] [place] [address] PCP - General Family Practice 09/30/15 06/02/21 Aminata Youssef MD [facility] [address] [place] [address] PCP - General Internal Medicine 06/03/21 Bettye Gonzales MD Internal Medicine 04/10/15 Antony Chakraborty MD [address] [address] INTERNAL MEDICINE - ENDOCRINOLOGY, DIABETES & METABOLISM 11/13/15 Mateo Cheema MD [address] [place] [address] [address] Internal Medicine 08/06/16 Ermias Colón MD [address] [address] Referring Physician Neurology 09/23/16 Bonny Cooley MD [address] [address] Assigned PCP 10/05/15 07/26/20 Pam Hernandez MD 911 [facility] [place] [address] Assigned Behavioral Health Provider 05/30/20 08/01/21 Lázaro Horowitz MD [facility] [address] [place] [address] Assigned Rheumatology Provider 05/30/20 07/19/20 Jaime Grover MD [address] [place] [address] Assigned Gastroenterology Provider 05/30/20 11/14/21 Toni Sheth MD [address] 065095 Assigned Pediatric Specialist Provider 05/30/20 09/07/20 Toni Sheth MD [address] 127345 Assigned Surgical Provider 05/30/2006/28 Bertram Elizabeth MD [address] [place] [address] [phone] Assigned PCP 07/27/20 04/25/21 Bonny Cooley MD [address] [place] [address] [id number] Assigned PCP 04/26/21 08/15/21 Bertram Elizabeth MD [address] [place] [address] [id number] Assigned PCP 08/16/21 10/24/21 Alex Johnson MD [address] [place] [address] [phone] Assigned Rheumatology Provider 10/18/21 04/15/23 Bonny Cooley MD [address] [place] [address] Assigned PCP 10/25/21 04/02/22 [place] [address] [place] [address] Assigned PCP 04/03/22 07/23/22 [place] [address] [place] [address] Assigned PCP 10/02/22 04/29/23 documented as of this encounter
--- OUTSIDE RECORDS SUMMARY | 2024-02-03 12:51 | XMS_ITS | Encounter Summary ---
Author Organization [place] Address [address] [place] [address] Care Team Providers Care Content Developer Name Role Phone Bettye Gonzales MD Unavailable + Bonny Cooley MD Primary Care Provider [phone] Antony Chakraborty MD Unavailable Mateo Cheema MD Unavailable Ermias Colón MD Unavailable Bonny Cooley MD Unavailable [phone] Pam Hernandez MD Unavailable [phone] Lázaro Horowitz MD Unavailable Jaime Grover MD Unavailable Toni Sheth MD Unavailable [phone] Toni Sheth MD Unavailable [phone] Bertram Elizabeth MD Unavailable [phone] Bonny Cooley MD Unavailable [phone] Aminata Youssef MD Primary Care Provider Bertram Elizabeth MD Unavailable Alex Johnson MD Unavailable Bonny Cooley MD Unavailable [phone] Bertram Elizabeth MD Unavailable Bertram Elizabeth MD Unavailable Encounter Details Date Type Department Care Team (Late st Contact Info) Description 11/26/2019 [facility] [address] [address] Toni Del Angel MD [facility] 420 [facility] [address] [place] [address] Social History Tobacco Use Types Packs/Day Years Used Date Smoking Tobacco: Former Cigarettes 2 3 0 04/23/1976 - 12/17/1977 Smokeless Tobacco: Never Alcohol Use Standard Drinks/Week Comments No 0 (1 standard drink = 0.6 oz pur e alcohol) PHQ-2 Answer Date Recorded PHQ-2 Score 0 10/18/2019 Sex and Gender Information Value Date Recorded Sex Assigned at Female 08/28/2018 12:23 AM CAN LABELER Gender Identity Female 08/28/2018 12:23 AM CAN LABELER Sexual Orientation Straight 10/11/2019 2: 51 PM CAN LABELER COVID-19 Exposure Response Date Recorded In the last month, have you been in contact with someone who was confirmed or suspected to have Coronavirus / COVID-19? No / Unsure 11/23/2019 2:47 PM CDT documented as of this encounter Plan of Treatment Not on file documented as of this encounter Visit Diagnoses Not on filedocumented in this encounter Additional Health Concerns Infection Onset Date Last Indicated Resolved Time COVID-19 06/23/2020 06/23/2020 07/14/2020 11:4 0 PM CAN LABELER Recovered COVID 07/08/2020 07/08/2020 09/21/2020 1 1:39 PM CAN LABELER Assessment Noted Time PHQ-9 Depression Total Score: 15 09/04/ 020 2:41 PM CAN LABELER documented as of this encounter Care Teams Content Developer Relationship Specialty Start Date End Date Bonny Cooley MD [address] [place] [address] PCP - General Family Practice 09/30/15 06/02/21 Aminata Youssef MD [facility] [address] [place] [address] PCP - General Internal Medicine 06/03/21 Bettye Gonzales MD Internal Medicine 04/10/15 Antony Chakraborty MD [address] [place] [address] [address] MD INTERNAL MEDICINE - ENDOCRINOLOGY, DIABETES & METABOLISM 11/13/15 Mateo Cheema MD [address] [place] [address] [address] Internal Medicine 08/06/16 Ermias Colón MD [address] 113[address] Referring Physician Neurology 09/23/16 Bonny Cooley MD [address] [address] Assigned PCP 10/05/15 07/26/20 Pam Hernandez MD [address] [facility] [place] [address] Assigned Behavioral Health Provider 05/30/20 08/01/21 Lázaro Horowitz MD [facility] [address] [place] [address] Assigned Rheumatology Provider 05/30/20 07/19/20 Jaime Grover MD [address] [place] [address] Assigned Gastroenterology Provider 05/30/20 11/14/21 Toni Sheth MD [address] [address] Assigned Pediatric Specialist Provider 05/30/20 09/07/20 Toni Sheth MD [address] 749745 Assigned Surgical Provider 05/30/2006/28 Bertram Elizabeth MD [address] [place] [address] Assigned PCP 07/27/20 04/25/21 Bonny Cooley MD [address] [place] [address] Assigned PCP 04/26/21 08/15/21 Bertram Elizabeth MD [address] [place] [address] [phone] Assigned PCP 08/16/21 10/24/21 Alex Johnosn MD [address] [place] [address] [phone] Assigned Rheumatology Provider 10/18/21 04/15/23 Bonny Cooley MD [address] [place] [address] Assigned PCP 10/25/21 04/02/22 Bertram Elizabeth MD [address] [place] [address] Assigned PCP 04/03/22 07/23/22 Bertram Elizabeth MD [facility] [address] [address] Assigned PCP 10/02/22 04/29/23 documented as of this encounter
--- OUTSIDE RECORDS SUMMARY | 2024-02-03 12:51 | XMS_ITS | Encounter Summary ---
Author Organization [place] Address [address] [place] [address] Care Team Providers Care Acoustic Sensor Operator Name Role Phone Bettye Gonzales MD Unavailable + Bonny Cooley MD Primary Care Provider Antony Chakraborty MD Unavailable Mateo Cheema MD Unavailable Ermias Colón MD Unavailable Bonny Cooley MD Unavailable [phone] Pam Hernandez MD Unavailable [phone] Lázaro Horowitz MD Unavailable Jaime Grover MD Unavailable Toni Sheth MD Unavailable [phone] Toni Sheth MD Unavailable [phone] Bertram Elizabeth MD Unavailable Bonny Cooley MD Unavailable [phone] Aminata Youssef MD Primary Care Provider Bertram Elizabeth MD Unavailable Alex Johnson MD Unavailable [phone] Bonny Cooley MD Unavailable [phone] Bertram Elizabeth MD Unavailable Bertram Elizabeth MD Unavailable [phone] Encounter Details Date Type Department Care Team (Late st Contact Info) Description 08/27/2019 [facility] Advice [facility] Rheumatology Clinic [address] [address] Toni Del Angel MD [facility] 420 [facility] [address] [place] [address] Social History Tobacco Use Types Packs/Day Years Used Date Smoking Tobacco: Former Cigarettes 2 3 0 04/23/1976 - 12/17/1977 Smokeless Tobacco: Never Alcohol Use Standard Drinks/Week Comments No 0 (1 standard drink = 0.6 oz pur e alcohol) PHQ-2 Answer Date Recorded PHQ-2 Score 5 07/24/2019 Sex and Gender Information Value Date Recorded Sex Assigned at Female 08/28/2018 12:23 AM LAMINATOR PRINTED CIRCUIT BOARDS Gender Identity Female 08/28/2018 12:23 AM LAMINATOR PRINTED CIRCUIT BOARDS Sexual Orientation Straight 10/11/2019 2: 51 PM LAMINATOR PRINTED CIRCUIT BOARDS documented as of this encounter Plan of Treatment Not on file documented as of this encounter Visit Diagnoses Not on filedocumented in this encounter Additional Health Concerns Infection Onset Date Last Indicated Resolved Time COVID-19 06/23/2020 06/23/2020 07/14/2020 11:4 0 PM LAMINATOR PRINTED CIRCUIT BOARDS Recovered COVID 07/08/2020 07/08/2020 09/21/2020 1 1:39 PM LAMINATOR PRINTED CIRCUIT BOARDS Assessment Noted Time PHQ-9 Depression Total Score: 16 019 2:39 PM LAMINATOR PRINTED CIRCUIT BOARDS documented as of this encounter Care Teams Acoustic Sensor Operator Relationship Specialty Start Date End Date Bonny Cooley MD [address] [place], [place] [phone] PCP - General Family Practice 09/30/15 06/02/21 Aminata Youssef MD [facility] [address] [place] [address] PCP - General Internal Medicine 06/03/21 Bettye Gonzales MD Internal Medicine 04/10/15 Anotny Chakraborty MD [address] [place] [address] 996245 MD INTERNAL MEDICINE - ENDOCRINOLOGY, DIABETES & METABOLISM 11/13/15 Mateo Cheema MD [address] 000775 MD Internal Medicine 08/06/16 Ermias Colón MD [address] [phone] Referring Physician Neurology 09/23/16 Bonny Cooley MD [address] [address] Assigned PCP 10/05/15 07/26/20 Pam Hernandez MD 1 [facility] [place] [address] Assigned Behavioral Health Provider 05/30/20 08/01/21 Lázaro Horowitz MD [address] [address] Assigned Rheumatology Provider 05/30/20 07/19/20 Jaime Grover MD [address] [place] [address] Assigned Gastroenterology Provider 05/30/20 11/14/21 Toni Sheth MD [address] [address] Assigned Pediatric Specialist Provider 05/30/20 09/07/20 Toni Sheth MD [address] [address] Assigned Surgical Provider 05/30/2006/28 Bertram Elizabeth MD [address] [place] [address] Assigned PCP 07/27/20 04/25/21 Bonny Cooley MD [address] [place] [address] Assigned PCP 04/26/21 08/15/21 Bertram Elizabeth MD [address] [place] [address] Assigned PCP 08/16/21 10/24/21 Alex Johnson MD [address] [place] [address] Assigned Rheumatology Provider 10/18/21 04/15/23 Bonny Cooley MD [address] [place] [address] Assigned PCP 10/25/21 04/02/22 Bertram Elizabeth MD [address] [place] [address] Assigned PCP 04/03/22 07/23/22 Bertram Elizabeth MD [address] [place] [address] Assigned PCP 10/02/22 04/29/23 documented as of this encounter
--- OUTSIDE RECORDS SUMMARY | 2024-02-03 12:51 | XMS_ITS | Encounter Summary ---
Author Organization [place] Address [address] [place] [address] Care Team Providers Care Home Demonstrator Name Role Phone Bettye Gonzales MD Unavailable + Bonny Coolye MD Primary Care Provider Antony Chakraborty MD Unavailable Mateo Cheema MD Unavailable [phone] Ermias Colón MD Unavailable Bonny Cooley MD Unavailable Pam Hernandez MD Unavailable [phone] Lázaro Horowitz MD Unavailable Jaime Grover MD Unavailable [phone] Toni Sheth MD Unavailable [phone] Toni Sheth MD Unavailable [phone] Bertram Elizabeth MD Unavailable [phone] Bonny Cooley MD Unavailable [phone] Aminata Youssef MD Primary Care Provider Bertram Elizabeth MD Unavailable [phone] Alex Johnson MD Unavailable Bonny Cooley MD Unavailable [phone] Bertram Elizabeth MD Unavailable Bertram Elizabeth MD Unavailable Encounter Details Date Type Department Care Team (Late st Contact Info) Description 06/23/2020 [facility] [address] [address] Jaime Grover MD [address] [place] [address] Social History Tobacco Use Types Packs/Day Years Used Date Smoking Tobacco: Former Cigarettes 2 3 0 04/23/1976 - 12/17/1977 Smokeless Tobacco: Never Alcohol Use Standard Drinks/Week Comments No 0 (1 standard drink = 0.6 oz pur e alcohol) PHQ-2 Answer Date Recorded PHQ-2 Score 4 01/31/2020 Sex and Gender Information Value Date Recorded Sex Assigned at Female 08/28/2018 12:23 AM RAILCAR FOREMAN Gender Identity Female 08/28/2018 12:23 AM RAILCAR FOREMAN Sexual Orientation Straight 10/11/2019 2: 51 PM RAILCAR FOREMAN COVID-19 Exposure Response Date Recorded In the last month, have you been in contact with someone who was confirmed or suspected to have Coronavirus / COVID-19? No / Unsure 06/23/2020 10:33 AM RAILCAR FOREMAN documented as of this encounter Plan of Treatment Not on file documented as of this encounter Visit Diagnoses Not on filedocumented in this encounter Additional Health Concerns Infection Onset Date Last Indicated Resolved Time COVID-19 06/23/2020 06/23/2020 07/14/2020 11:4 0 PM RAILCAR FOREMAN Recovered COVID 07/08/2020 07/08/2020 09/21/2020 1 1:39 PM RAILCAR FOREMAN Assessment Noted Time PHQ-9 Depression Total Score: 11 020 2:18 PM CDT documented as of this encounter Care Teams Home Demonstrator Relationship Specialty Start Date End Date Bonny Cooley MD [address] [place] [address] PCP - General Family Practice 09/30/15 06/02/21 Aminata Youssef MD [facility] [address] [place] [address] PCP - General Internal Medicine 06/03/21 Bettye Gonzales MD Internal Medicine 04/10/15 Antony Chakraborty MD [address] [address] INTERNAL MEDICINE - ENDOCRINOLOGY, DIABETES & METABOLISM 11/13/15 Mateo Cheema MD [address] [place] [address] [address] Internal Medicine 08/06/16 Ermias Colón MD [address] [address] Referring Physician Neurology 09/23/16 Bonny Cooley MD [address] [address] Assigned PCP 10/05/15 07/26/20 Pam Hernandez MD 911 [facility] [place] [address] Assigned Behavioral Health Provider 05/30/20 08/01/21 UdLázaro martínez MD [facility] [address] [place] [address] Assigned Rheumatology Provider 05/30/20 07/19/20 Jaime Grover MD [address] [place] [address] Assigned Gastroenterology Provider 05/30/20 11/14/21 Toni Sheth MD [address] 943555 Assigned Pediatric Specialist Provider 05/30/20 09/07/20 Toni Sheth MD [address] 146445 Assigned Surgical Provider 05/30/2006/28 [place] [address] [place] [address] [phone] Assigned PCP 07/27/20 04/25/21 [place] [address] [place] [address] [phone] Assigned PCP 04/26/21 08/15/21 [place] [address] [place] [address] [phone] Assigned PCP 08/16/21 10/24/21 Alex Johnson MD [address] [place] [address] [phone] Assigned Rheumatology Provider 10/18/21 04/15/23 Bonny Cooley MD [address] [place] [address] Assigned PCP 10/25/21 04/02/22 [place] [address] [place] [address] Assigned PCP 04/03/22 07/23/22 [place] [address] [place] [address] Assigned PCP 10/02/22 04/29/23 documented as of this encounter
--- OUTSIDE RECORDS SUMMARY | 2024-02-03 12:51 | XMS_ITS | Encounter Summary ---
Author Organization [place] Address [address] [place] [address] Care Team Providers Care Clod Puller Name Role Phone Bettye Gonzales MD Unavailable + Bonny Cooley MD Primary Care Provider Antony Chakraborty MD Unavailable Mateo Cheema MD Unavailable Ermias Colón MD Unavailable Bonny Cooley MD Unavailable [phone] Pam Hernandez MD Unavailable [phone] Lázaro Horowitz MD Unavailable Jaime Grover MD Unavailable Toni Sheth MD Unavailable [phone] Toni Sheth MD Unavailable [phone] Bertram Elizabeth MD Unavailable Bonny Cooley MD Unavailable [phone] Aminata Youssef MD Primary Care Provider Bertram Elizabeth MD Unavailable Alex Johnson MD Unavailable Bonny Cooley MD Unavailable [phone] Bertram Elizabeth MD Unavailable Bertram Elizabeth MD Unavailable Encounter Details Date Type Department Care Team (Late st Contact Info) Description 06/06/2020 [facility] Gastro[facility]ology Clinic [address] [address] Jaime Grover MD [address] [place] [address] Social History Tobacco Use Types Packs/Day Years Used Date Smoking Tobacco: Former Cigarettes 2 3 0 04/23/1976 - 12/17/1977 Smokeless Tobacco: Never Alcohol Use Standard Drinks/Week Comments No 0 (1 standard drink = 0.6 oz pur e alcohol) PHQ-2 Answer Date Recorded PHQ-2 Score 4 01/31/2020 Sex and Gender Information Value Date Recorded Sex Assigned at Female 08/28/2018 12:23 AM MODERN LANGUAGES PROFESSOR Gender Identity Female 08/28/2018 12:23 AM MODERN LANGUAGES PROFESSOR Sexual Orientation Straight 10/11/2019 2: 51 PM MODERN LANGUAGES PROFESSOR COVID-19 Exposure Response Date Recorded In the [...] COVID-19 06/23/2020 06/23/2020 07/14/2020 11:4 0 PM MODERN LANGUAGES PROFESSOR Recovered COVID 07/08/2020 07/08/2020 09/21/2020 1 1:39 PM MODERN LANGUAGES PROFESSOR Assessment Noted Time PHQ-9 Depression Total Score: 11 020 2:18 PM CDT documented as of this encounter Care Teams Clod Puller Relationship Specialty Start Date End Date Bonny Cooley MD [address] [place] [address] PCP - General Family Practice 09/30/15 06/02/21 Aminata Youssef MD [facility] [address] [place] [address] PCP - General Internal Medicine 06/03/21 Bettye Gonzales MD Internal Medicine 04/10/15 Antony Chakraborty MD [address] [address] INTERNAL MEDICINE - ENDOCRINOLOGY, DIABETES & METABOLISM 11/13/15 Mateo Cheema MD [address] [place] [address] [address] Internal Medicine 08/06/16 Ermias Colón MD [address] [address] Referring Physician Neurology 09/23/16 Bonny Cooley MD [address] [address] Assigned PCP 10/05/15 07/26/20 Pam Hernandez MD 911 [facility] [place] [address] Assigned Behavioral Health Provider 05/30/20 08/01/21 Lázaro Horowitz MD [facility] [address] [place] [address] Assigned Rheumatology Provider 05/30/20 07/19/20 Jaime Grover MD [address] [place] [address] Assigned Gastroenterology Provider 05/30/20 11/14/21 Toni Sheth MD [address] 977165 Assigned Pediatric Specialist Provider 05/30/20 09/07/20 Toni Sheth MD [address] 718925 Assigned Surgical Provider 05/30/2006/28 Bertram Elizabeth MD [address] [place] [address] [phone] Assigned PCP 07/27/20 04/25/21 Bonny Cooley MD [address] [place] [address] [phone] Assigned PCP 04/26/21 08/15/21 Bertram Elizabeth MD [address] [place] [address] [phone] Assigned PCP 08/16/21 10/24/21 Alex Johnson MD [address] [place] [address] 135475 Assigned Rheumatology Provider 10/18/21 04/15/23 Bonny Cooley MD [address] [place] [address] Assigned PCP 10/25/21 04/02/22 [place] [address] [place] [address] Assigned PCP 04/03/22 07/23/22 [place] [address] [place] [address] Assigned PCP 10/02/22 04/29/23 documented as of this encounter
--- OUTSIDE RECORDS SUMMARY | 2024-02-03 12:51 | XMS_ITS | Encounter Summary ---
Author Organization [facility] Address [address] [place] [address] Care Team Providers Care District Gauger Name Role Phone Bettye Gonzales MD Unavailable + Bonny Cooley MD Primary Care Provider Antony Chakraborty MD Unavailable Mateo Cheema MD Unavailable [phone] Ermias Colón MD Unavailable Bonny Cooley MD Unavailable [phone] Pam Hernandez MD Unavailable [phone] Lázaro Horowitz MD Unavailable Jaime Grover MD Unavailable Toni Sheth MD Unavailable [phone] Toni Sheth MD Unavailable [phone] Bertram Elizabeth MD Unavailable [phone] Bonny Cooley MD Unavailable [phone] Aminata Youssef MD Primary Care Provider Bertram Elizabeth MD Unavailable Alex Johnson MD Unavailable Bonny Cooley MD Unavailable [phone] Bertram Elizabeth MD Unavailable Bertram Elizabeth MD Unavailable [phone] Encounter Details Date Type Department Care Team (Late st Contact Info) Description 06/18/2020 [facility] [address] [address] Jaime Grover MD [address] [place] [address] Social History Tobacco Use Types Packs/Day Years Used Date Smoking Tobacco: Former Cigarettes 2 3 0 04/23/1976 - 12/17/1977 Smokeless Tobacco: Never Alcohol Use Standard Drinks/Week Comments No 0 (1 standard drink = 0.6 oz pur e alcohol) PHQ-2 Answer Date Recorded PHQ-2 Score 4 01/31/2020 Sex and Gender Information Value Date Recorded Sex Assigned at Female 08/28/2018 12:23 AM PRODUCT MARKETING DIRECTOR Gender Identity Female 08/28/2018 12:23 AM PRODUCT MARKETING DIRECTOR Sexual Orientation Straight 10/11/2019 2: 51 PM PRODUCT MARKETING DIRECTOR COVID-19 Exposure Response Date Recorded In the [...] COVID-19 06/23/2020 06/23/2020 07/14/2020 11:4 0 PM PRODUCT MARKETING DIRECTOR Recovered COVID 07/08/2020 07/08/2020 09/21/2020 1 1:39 PM PRODUCT MARKETING DIRECTOR Assessment Noted Time PHQ-9 Depression Total Score: 11 020 2:18 PM CDT documented as of this encounter Care Teams District Gauger Relationship Specialty Start Date End Date Bonny Cooley MD [address] [place] [address] PCP - General Family Practice 09/30/15 06/02/21 Aminata Youssef MD [facility] [address] [place] [address] PCP - General Internal Medicine 06/03/21 Bettye Gonzales MD Internal Medicine 04/10/15 Antony Chakrabotry MD [address] [address] INTERNAL MEDICINE - ENDOCRINOLOGY, DIABETES & METABOLISM 11/13/15 Mateo Cheema MD [address] [place] [address] [address] Internal Medicine 08/06/16 Ermias Colón MD [address] [address] Referring Physician Neurology 09/23/16 Bonny Cooley MD [address] [address] Assigned PCP 10/05/15 07/26/20 Pam Hernandez MD 911 [facility] [place] [address] Assigned Behavioral Health Provider 05/30/20 08/01/21 Lázaro Horowitz MD [facility] [address] [place] [address] Assigned Rheumatology Provider 05/30/20 07/19/20 Jaime Grover MD [address] [place] [address] Assigned Gastroenterology Provider 05/30/20 11/14/21 Toni Sheth MD [address] [address] Assigned Pediatric Specialist Provider 05/30/20 09/07/20 Toni Sheth MD [address] 081875 Assigned Surgical Provider 05/30/2006/28 Bertram Elizabeth MD [address] [place] [address] [phone] Assigned PCP 07/27/20 04/25/21 Bonny Cooley MD [address] [place] [address] [id number] Assigned PCP 04/26/21 08/15/21 Bertram Elizabeth MD [address] [place] [address] [phone] Assigned PCP 08/16/21 10/24/21 Alex Johnson MD [address] [place] [address] 439035 Assigned Rheumatology Provider 10/18/21 04/15/23 Bonny Cooley MD [address] [place] [address] Assigned PCP 10/25/21 04/02/22 [place] [address] [place] [address] Assigned PCP 04/03/22 07/23/22 [place] [address] [place] [address] Assigned PCP 10/02/22 04/29/23 documented as of this encounter
--- OUTSIDE RECORDS SUMMARY | 2024-02-03 12:51 | XMS_ITS | Encounter Summary ---
Author Organization [facility] Address [address] [place] [address] Care Team Providers Care Trim Stencil Maker Name Role Phone Bettye Gonzales MD Unavailable + Bonny Cooley MD Primary Care Provider Antony Chakraborty MD Unavailable Mateo Cheema MD Unavailable [phone] Ermias Colón MD Unavailable Bonny Cooley MD Unavailable [phone] Pam Hernandez MD Unavailable [phone] Lázaro Horowitz MD Unavailable Jaime Grover MD Unavailable [phone] Toni Sheth MD Unavailable [phone] Toni Sheth MD Unavailable [phone] Bertram Elizabeth MD Unavailable [phone] Bonny Cooley MD Unavailable [phone] Aminata Youssef MD Primary Care Provider Bertram Elizabeth MD Unavailable Alex Johnson MD Unavailable Bonny Cooley MD Unavailable [phone] Bertram Elizabeth MD Unavailable Bertram Elizabeth MD Unavailable Encounter Details Date Type Department Care Team (Late st Contact Info) Description 04/08/[address] [phone] [facility] Tobacco Use Types Packs/Day Years Used Date Smoking Tobacco: Former Cigarettes 2 3 0 04/23/1976 - 12/17/1977 Smokeless Tobacco: Never Alcohol Use Standard Drinks/Week Comments No 0 (1 standard drink = 0.6 oz pur e alcohol) PHQ-2 Answer Date Recorded PHQ-2 Score 4 01/31/2020 Sex and Gender Information Value Date Recorded Sex Assigned at Female 08/28/2018 12:23 AM ACETYLENE BURNER Gender Identity Female 08/28/2018 12:23 AM ACETYLENE BURNER Sexual Orientation Straight 10/11/2019 2: 51 PM ACETYLENE BURNER COVID-19 Exposure Response Date Recorded In the last month, have you been in contact with someone who was confirmed or suspected to have Coronavirus / COVID-19? No / Unsure 04/11/2020 8:09 PM CDT documented as of this encounter Plan of Treatment Not on file documented as of this encounter Visit Diagnoses Not on filedocumented in this encounter Additional Health Concerns Infection Onset Date Last Indicated Resolved Time COVID-19 06/23/2020 06/23/2020 07/14/2020 11:4 0 PM ACETYLENE BURNER Recovered COVID 07/08/2020 07/08/2020 09/21/2020 1 1:39 PM ACETYLENE BURNER Assessment Noted Time PHQ-9 Depression Total Score: 11 020 2:18 PM CDT documented as of this encounter Care Teams Trim Stencil Maker Relationship Specialty Start Date End Date Bonny Cooley MD [address] [place] [address] PCP - General Family Practice 09/30/15 06/02/[address] [facility] [address] [place] [address] PCP - General Internal Medicine 06/03/21 Bettye Gonzales MD Internal Medicine 04/10/15 Antony Chakraborty MD [address] [address] INTERNAL MEDICINE - ENDOCRINOLOGY, DIABETES & METABOLISM 11/13/15 Mateo Cheema MD [address] 076385 Internal Medicine 08/06/16 Ermias Colón MD [address] 910855 Referring Physician Neurology 09/23/16 Bonny Cooley MD [address] [phone] Assigned PCP 10/05/15 07/26/20 Pam Hernandez MD [address] [place] [address] [address] [place] [id number] Assigned Behavioral Health Provider 05/30/20 08/01/21 [address] [facility] [address] [place], [place] 279185 Assigned Rheumatology Provider 05/30/20 07/19/20 Jaime Grover MD [address] [place] [address] Assigned Gastroenterology Provider 05/30/20 11/14/21 Toni Sheth MD [address] [address] Assigned Pediatric Specialist Provider 05/30/20 09/07/20 Toni Sheth MD [address] [address] Assigned Surgical Provider 05/30/2006/28 Bertram Elizabeth MD [address] [place] [address] Assigned PCP 07/27/20 04/25/21 Bonny Cooley MD [address] [place] [address] Assigned PCP 04/26/21 08/15/21 Bertram Elizabeth MD [address] [place] [address] Assigned PCP 08/16/21 10/24/21 Alex Johnson MD [address] [place] [address] Assigned Rheumatology Provider 10/18/21 04/15/23 Bonny Cooley MD [address] [place] [address] Assigned PCP 10/25/21 04/02/22 Bertram Elizabeth MD [address] [place] [address] Assigned PCP 04/03/22 07/23/22 Bertram Elizabeth MD [address] [place] [address] Assigned PCP 10/02/22 04/29/23 documented as of this encounter
--- OUTSIDE RECORDS SUMMARY | 2024-02-03 12:51 | XMS_ITS | Encounter Summary ---
Author Organization [facility] Address [address] [place] [address] Care Team Providers Care Slip Laster Name Role Phone Bettye Gonzales MD Unavailable + Bonny Cooley MD Primary Care Provider [phone] Antony Chakraborty MD Unavailable [phone] Mateo Cheema MD Unavailable Ermias Colón MD Unavailable Bonny Cooley MD Unavailable [phone] Pam Hernandez MD Unavailable [phone] Lázaro Horowitz MD Unavailable Jaime Grover MD Unavailable [phone] Toni Sheth MD Unavailable [phone] Toni Sheth MD Unavailable [phone] Bertram Elizabeth MD Unavailable Bonny Cooley MD Unavailable [phone] Aminata Youssef MD Primary Care Provider [phone] Bertram Elizabeth MD Unavailable Alex Johnson MD Unavailable Bonny Cooley MD Unavailable [phone] Bertram Elizabeth MD Unavailable Bertram Elizabeth MD Unavailable [phone] Reason for Visit * Reason Onset Date Comments Appointment 07/26/2019 Encounter Details Date Type Department Care Team (Late st Contact Info) Description 07/26/[address] [address] Bonny Cooley MD [address] [phone] Appointment Social History Tobacco Use Types Packs/Day Years Used Date Smoking Tobacco: Former Cigarettes 2 3 0 04/23/1976 - 12/17/1977 Smokeless Tobacco: Never Alcohol Use Standard Drinks/Week Comments No 0 (1 standard drink = 0.6 oz pur e alcohol) PHQ-2 Answer Date Recorded PHQ-2 Score 5 07/24/2019 Sex and Gender Information Value Date Recorded Sex Assigned at Female 08/28/2018 12:23 AM MARKETING WRITER Gender Identity Female 08/28/2018 12:23 AM MARKETING WRITER Sexual Orientation Straight 10/11/2019 2: 51 PM MARKETING WRITER documented as of this encounter Miscellaneous Notes * Telephone Encounter - Marcus Rothman - 07/26/2019 2:48 PM CST We did not reach Heidi Miller, we left a message with our contact number [phone]. If we donot hear from them within the next 3 business days we will mail a letter offering our scheduling services. If they do call to schedule, in the future, we will inform you of the outcome. Thank you for your referral, [facility] Outpatient Intake ETING WRITER documented in this encounter Plan of Treatment Not on file documented as of this encounter Visit Diagnoses Not on filedocumented in this encounter Additional Health Concerns Infection Onset Date Last Indicated Resolved Time COVID-19 06/23/2020 06/23/2020 07/14/2020 11:4 0 PM MARKETING WRITER Recovered COVID 07/08/2020 07/08/2020 09/21/2020 1 1:39 PM MARKETING WRITER Assessment Noted Time PHQ-9 Depression Total Score: 16 07/24/ 019 2:39 PM MARKETING WRITER documented as of this encounter Care Teams Slip Laster Relationship Specialty Start Date End Date Bonny Cooley MD [address] [place] [address] PCP - General Family Practice 09/30/15 06/02/21 Aminata Youssef MD [facility] [address] [place] [address] PCP - General Internal Medicine 06/03/21 Bettye Gonzales MD MD Internal Medicine 04/10/15 Antony Chakraborty MD [address] [place] [address] [id number] INTERNAL MEDICINE - ENDOCRINOLOGY, DIABETES & METABOLISM 11/13/15 Mateo Cheema MD [address] 725185 Internal Medicine 08/06/16 Ermias Colón MD [address] 377485 Referring Physician Neurology 09/23/16 [place] [address] [place] [address] [phone] Assigned PCP 10/05/15 07/26/20 Pam Hernandez MD [address] [place] [address] [place] [address] Assigned Behavioral Health Provider 05/30/20 08/01/21 Lázaro Horowitz MD [facility] [address] [place] [address] Assigned Rheumatology Provider 05/30/20 07/19/20 Jaime Grover MD [address] [place] [address] Assigned Gastroenterology Provider 05/30/20 11/14/21 Toni Sheth MD [address] [address] Assigned Pediatric Specialist Provider 05/30/20 09/07/20 Toni Sheth MD [address] [address] Assigned Surgical Provider 05/30/2006/28 Bertram Elizabeth MD [address] [address] Assigned PCP 07/27/20 04/25/21 Bonny Cooley MD [address] [address] Assigned PCP 04/26/21 08/15/21 Bertram Elizabeth MD 2270 [facility] [address] [place] [address] Assigned PCP 08/16/21 10/24/21 Alex Johnson MD [address] [place] [address] Assigned Rheumatology Provider 10/18/21 04/15/23 Bonny Cooley MD [address] [address] Assigned PCP 10/25/21 04/02/22 Bertram Elizabeth MD [address] [address] Assigned PCP 04/03/22 07/23/22 Bertram Elizabeth MD [address] [address] Assigned PCP 10/02/22 04/29/23 documented as of this encounter
--- OUTSIDE RECORDS SUMMARY | 2024-02-03 12:51 | XMS_ITS | Encounter Summary ---
Author Organization [facility] Address [address] [place] [address] Care Team Providers Care Rental Car Deliverer Name Role Phone Bettye Gonzales MD Unavailable + Bonny Cooley MD Primary Care Provider Antony Chakraborty MD Unavailable Mateo Cheema MD Unavailable Ermias Colón MD Unavailable Bonny Cooley MD Unavailable [phone] Pam Hernandez MD Unavailable [phone] Lázaro Horowitz MD Unavailable Jaime Grover MD Unavailable Toni Sheth MD Unavailable [phone] Toni Sheth MD Unavailable [phone] Bretram Elizabeth MD Unavailable Bonny Cooley MD Unavailable [phone] Aminata Youssef MD Primary Care Provider Bertram Elizabeth MD Unavailable Alex Johnson MD Unavailable [phone] Bonny Cooley MD Unavailable [phone] Bertram Elizabeth MD Unavailable Bertram Elizabeth MD Unavailable Encounter Details Date Type Department Care Team (Late st Contact Info) Description 06/02/2020 [facility] [address] [address] Jaime Grover MD [address] [place] [address] Social History Tobacco Use Types Packs/Day Years Used Date Smoking Tobacco: Former Cigarettes 2 3 0 04/23/1976 - 12/17/1977 Smokeless Tobacco: Never Alcohol Use Standard Drinks/Week Comments No 0 (1 standard drink = 0.6 oz pur e alcohol) PHQ-2 Answer Date Recorded PHQ-2 Score 4 01/31/2020 Sex and Gender Information Value Date Recorded Sex Assigned at Female 08/28/2018 12:23 AM ASSOCIATE DEAN Gender Identity Female 08/28/2018 12:23 AM ASSOCIATE DEAN Sexual Orientation Straight 10/11/2019 2: 51 PM ASSOCIATE DEAN COVID-19 Exposure Response Date Recorded In the last month, have you been in contact with someone who was confirmed or suspected to have Coronavirus / COVID-19? No / Unsure 06/04/2020 2:17 PM CDT documented as of this encounter Plan of Treatment Not on file documented as of this encounter Visit Diagnoses Not on filedocumented in this encounter Additional Health Concerns Infection Onset Date Last Indicated Resolved Time COVID-19 06/23/2020 06/23/2020 07/14/2020 11:4 0 PM ASSOCIATE DEAN Recovered COVID 07/08/2020 07/08/2020 09/21/2020 1 1:39 PM ASSOCIATE DEAN Assessment Noted Time PHQ-9 Depression Total Score: 11 020 2:18 PM CDT documented as of this encounter Care Teams Rental Car Deliverer Relationship Specialty Start Date End Date Bonny Cooley MD [address] [place] [address] PCP - General Family Practice 09/30/15 06/02/21 Aminata Youssef MD [facility] [address] [place] [address] PCP - General Internal Medicine 06/03/21 Bettye Gonzales MD Internal Medicine 04/10/15 Antony Chakraborty MD [address] [address] INTERNAL MEDICINE - ENDOCRINOLOGY, DIABETES & METABOLISM 11/13/15 Mateo Cheema MD [address] [place] [address] [address] Internal Medicine 08/06/16 Ermias Colón MD [address] [address] Referring Physician Neurology 09/23/16 Bonny Cooley MD [address] [address] Assigned PCP 10/05/15 07/26/20 Pam Hernandez MD 911 [facility] [place] [address] Assigned Behavioral Health Provider 05/30/20 08/01/21 Lázaro Horowitz MD [facility] [address] [place] [address] Assigned Rheumatology Provider 05/30/20 07/19/20 Jaime Grover MD [address] [place] [address] Assigned Gastroenterology Provider 05/30/20 11/14/21 Toni Sheth MD [address] 260845 Assigned Pediatric Specialist Provider 05/30/20 09/07/20 Toni Sheth MD [address] 084065 Assigned Surgical Provider 05/30/2006/28 Bertram Elizabeth MD [address] [place] [address] [id number] Assigned PCP 07/27/20 04/25/21 Bonny Cooley MD [address] [place] [address] [id number] Assigned PCP 04/26/21 08/15/21 Bertram Elizabeth MD [address] [place] [address] [phone] Assigned PCP 08/16/21 10/24/21 Alex Johnson MD [address] [place] [address] [id number] Assigned Rheumatology Provider 10/18/21 04/15/23 Bonny Cooley MD [address] [place] [address] Assigned PCP 10/25/21 04/02/22 [place] [address] [place] [address] Assigned PCP 04/03/22 07/23/22 [place] [address] [place] [address] Assigned PCP 10/02/22 04/29/23 documented as of this encounter
--- OUTSIDE RECORDS SUMMARY | 2024-02-03 12:51 | XMS_ITS | Encounter Summary ---
Author Organization [facility] Address [address] [place] [address] Care Team Providers Care Reverse Logistics Analyst Name Role Phone Bettye Gonzales MD Unavailable + Bonny Cooley MD Primary Care Provider [phone] Antony Chakraborty MD Unavailable Mateo Cheema MD Unavailable [phone] Ermias Colón MD Unavailable Bonny Cooley MD Unavailable [phone] Pam Hernandez MD Unavailable [phone] Lázaro Horowitz MD Unavailable Jaime Grover MD Unavailable Toni Sheth MD Unavailable [phone] Toni Sheth MD Unavailable [phone] Bertram Elizabeth MD Unavailable Bonny Cooley MD Unavailable [phone] Aminata Youssef MD Primary Care Provider Bertram Elizabeth MD Unavailable Alex Johnson MD Unavailable [phone] Bonny Cooley MD Unavailable [phone] Bertram Elizabeth MD Unavailable Bertram Elizabeth MD Unavailable Encounter Details Date Type Department Care Team (Late st Contact Info) Description 06/26/2020 [facility] [address] [address] Jaime Grover MD [address] [place] [address] Social History Tobacco Use Types Packs/Day Years Used Date Smoking Tobacco: Former Cigarettes 2 3 0 04/23/1976 - 12/17/1977 Smokeless Tobacco: Never Alcohol Use Standard Drinks/Week Comments No 0 (1 standard drink = 0.6 oz pur e alcohol) PHQ-2 Answer Date Recorded PHQ-2 Score 4 01/31/2020 Sex and Gender Information Value Date Recorded Sex Assigned at Female 08/28/2018 12:23 AM WAREHOUSE TECHNICIAN Gender Identity Female 08/28/2018 12:23 AM WAREHOUSE TECHNICIAN Sexual Orientation Straight 10/11/2019 2: 51 PM WAREHOUSE TECHNICIAN COVID-19 Exposure Response Date Recorded In the last month, have you been in contact with someone who was confirmed or suspected to have Coronavirus / COVID-19? No / Unsure 06/23/2020 10:33 AM WAREHOUSE TECHNICIAN documented as of this encounter Plan of Treatment Not on file documented as of this encounter Visit Diagnoses Not on filedocumented in this encounter Additional Health Concerns Infection Onset Date Last Indicated Resolved Time COVID-19 06/23/2020 06/23/2020 07/14/2020 11:4 0 PM WAREHOUSE TECHNICIAN Recovered COVID 07/08/2020 07/08/2020 09/21/2020 1 1:39 PM WAREHOUSE TECHNICIAN Assessment Noted Time PHQ-9 Depression Total Score: 11 020 2:18 PM CDT documented as of this encounter Care Teams Reverse Logistics Analyst Relationship Specialty Start Date End Date Bonny Cooley MD [address] [place] [address] PCP - General Family Practice 09/30/15 06/02/21 Aminata Youssef MD [facility] [address] [place] [address] PCP - General Internal Medicine 06/03/21 Bettye Gonzales MD Internal Medicine 04/10/15 Antony Chakraborty MD [address] [address] INTERNAL MEDICINE - ENDOCRINOLOGY, DIABETES & METABOLISM 11/13/15 Mateo Cheema MD [address] [place] [address] [address] Internal Medicine 08/06/16 Ermias Colón MD [address] [address] Referring Physician Neurology 09/23/16 Bonny Cooley MD [address] [address] Assigned PCP 10/05/15 07/26/20 Pam Hernandez MD [address] [facility] [place] [address] Assigned Behavioral Health Provider 05/30/20 08/01/21 UdLázaro martínez MD [facility] [address] [place] [address] Assigned Rheumatology Provider 05/30/20 07/19/20 Jaime Grover MD [address] [place] [address] Assigned Gastroenterology Provider 05/30/20 11/14/21 Toni Sheth MD [address] 375105 Assigned Pediatric Specialist Provider 05/30/20 09/07/20 Toni Sheth MD [address] 520615 Assigned Surgical Provider 05/30/2006/28 [place] [address] [place] [address] [id number] Assigned PCP 07/27/20 04/25/21 [place] [address] [place] [address] [id number] Assigned PCP 04/26/21 08/15/21 [place] [address] [place] [address] [id number] Assigned PCP 08/16/21 10/24/21 Alex Johnson MD [address] [place] [address] [phone] Assigned Rheumatology Provider 10/18/21 04/15/23 Bonny Cooley MD [address] [place] [address] Assigned PCP 10/25/21 04/02/22 [place] [address] [place] [address] Assigned PCP 04/03/22 07/23/22 [place] [address] [place] [address] Assigned PCP 10/02/22 04/29/23 documented as of this encounter
--- OUTSIDE RECORDS SUMMARY | 2024-02-03 12:51 | XMS_ITS | Encounter Summary ---
Author Organization [place] Address [address] [place] [address] Care Team Providers Care Marketing Traffic Coordinator Name Role Phone Bettye Gonzales MD Unavailable + Bonny Cooley MD Primary Care Provider Antony Chakraborty MD Unavailable Mateo Cheema MD Unavailable [phone] Ermias Colón MD Unavailable Bonny Cooley MD Unavailable [phone] Bonny Cooley MD Unavailable [phone] Pam Hernandez MD Unavailable [phone] Lázaro Horowitz MD Unavailable Jaime Grover MD Unavailable Toni Sheth MD Unavailable [phone] Toni Sheth MD Unavailable [phone] Bertram Elizabeth MD Unavailable Bonny Cooley MD Unavailable [phone] Aminata Youssef MD Primary Care Provider Bertram Elizabeth MD Unavailable Alex Johnson MD Unavailable Bonny Cooley MD Unavailable Bertram Elizabeth MD Unavailable Bertram Elizabeth MD Unavailable Encounter Details Date Type Department Care Team (Late st Contact Info) Description 06/30/2018 MyC Medical Advice [place] [id number] [address] [place] [address] Noe Camarena RN Social History Tobacco Use Types Packs/Day Years Used Date Smoking Tobacco: Former Cigarettes 2 3 0 04/23/1976 - 12/17/1977 Smokeless Tobacco: Never Alcohol Use Standard Drinks/Week Comments No 0 (1 standard drink = 0.6 oz pur e alcohol) Sex and Gender Information Value Date Recorded Sex Assigned at Female 08/28/2018 12:23 AM INTERNATIONAL MARKETING MANAGER Gender Identity Female 08/28/2018 12:23 AM INTERNATIONAL MARKETING MANAGER Sexual Orientation Straight 10/11/2019 2: 51 PM INTERNATIONAL MARKETING MANAGER documented as of this encounter Plan of Treatment Not on file documented as of this encounter Visit Diagnoses Not on filedocumented in this encounter Additional Health Concerns Infection Onset Date Last Indicated Resolved Time COVID-19 06/23/2020 06/23/2020 07/14/2020 11:4 0 PM INTERNATIONAL MARKETING MANAGER Recovered COVID 07/08/2020 07/08/2020 09/21/2020 1 1:39 PM INTERNATIONAL MARKETING MANAGER Assessment Noted Time PHQ-9 Depression Total Score: 13 018 7:20 AM INTERNATIONAL MARKETING MANAGER documented as of this encounter Care Teams Marketing Traffic Coordinator Relationship Specialty Start Date End Date Bonny Cooley MD [address] [place], [place] [phone] PCP - General Family Practice 09/30/15 06/02/21 Bonny Cooley MD [address] [address] PCP - Assigned PCP 10/05/15 10/10/18 Aminata Youssef MD [facility] - [address] [address] PCP - General Internal Medicine 06/03/21 Bettye Gonzales MD Internal Medicine 04/10/15 Antony Chakraborty MD [address] [address] MD INTERNAL MEDICINE - ENDOCRINOLOGY, DIABETES & METABOLISM 11/13/15 Mateo Cheema MD [address] [address] Internal Medicine 08/06/16 Ermias Colón MD [address] [address] Referring Physician Neurology 09/23/16 Bonny Cooley MD [address] [address] Assigned PCP 10/05/15 07/26/20 Pam Hernandez MD [address] [facility] [place] [address] Assigned Behavioral Health Provider 05/30/20 08/01/21 Lázaro Horowitz MD [address] [place] [address] Assigned Rheumatology Provider 05/30/20 07/19/20 Jaime Grover MD [address] [place] [address] Assigned Gastroenterology Provider 05/30/20 11/14/21 Toni Sheth MD [address] [address] Assigned Pediatric Specialist Provider 05/30/20 09/07/20 Toni Sheth MD [address] [address] Assigned Surgical Provider 05/30/2006/28 Bertram Elizabeth MD [address] [address] Assigned PCP 07/27/20 04/25/21 Bonny Cooley MD [address] [address] Assigned PCP 04/26/21 08/15/21 Bertram Elizabeth MD [address] [address] Assigned PCP 08/16/21 10/24/21 Alex Johnson MD [address] [place] [address] Assigned Rheumatology Provider 10/18/21 04/15/23 Bonny Cooley MD [address] [address] Assigned PCP 10/25/21 04/02/22 Bertram Elizabeth MD [address] [address] Assigned PCP 04/03/22 07/23/22 Bertram Elizabeth MD [address] [address] Assigned PCP 10/02/22 04/29/23 documented as of this encounter
--- OUTSIDE RECORDS SUMMARY | 2024-02-03 12:51 | XMS_ITS | Encounter Summary ---
Author Organization [place] Address [address] [place] [address] Care Team Providers Care Information Clerk Name Role Phone Bettye Gonzales MD Unavailable + Bonny Cooely MD Primary Care Provider Antony Chakraborty MD Unavailable [phone] Mateo Cheema MD Unavailable Ermias Colón MD Unavailable Bonny Cooley MD Unavailable [phone] Bonny Cooley MD Unavailable [phone] Pam Hernandez MD Unavailable [phone] Lázaro Horowitz MD Unavailable Jaime Grover MD Unavailable Toni Sheth MD Unavailable [phone] Toni Sheth MD Unavailable [phone] Bertram Elizabeth MD Unavailable Bonny Cooley MD Unavailable Aminata Youssef MD Primary Care Provider Bertram Elizabeth MD Unavailable Alex Johnson MD Unavailable Bonny Cooley MD Unavailable [phone] Bertram Elizabeth MD Unavailable Bertram Elizabeth MD Unavailable Reason for Visit * Reason Comments Medication Refill Encounter Details Date Type Department Care Team (Late st Contact Info) Description [facility]/05/[facility] [address] [address] Lázaro Horowitz MD [place] [address] [place], [place] [id number] Medication Refill Social History Tobacco Use Types Packs/Day Years Used Date Smoking Tobacco: Former Cigarettes 2 3 0 04/23/1976 - 12/17/1977 Smokeless Tobacco: Never Alcohol Use Standard Drinks/Week Comments No 0 (1 standard drink = 0.6 oz pur e alcohol) PHQ-2 Answer Date Recorded PHQ-2 Score 0 08/15/2018 Sex and Gender Information Value Date Recorded Sex Assigned at Female 08/28/2018 12:23 AM VP SECURITY Gender Identity Female 08/28/2018 12:23 AM VP SECURITY Sexual Orientation Straight 10/11/2019 2: 51 PM VP SECURITY documented as of this encounter Miscellaneous Notes * Telephone Encounter - Deborah Ellison, MILITARY PROFESSIONAL - 10/05/2018 7:33 AM CST Refill request for methotrexate 2.5 mg Medication last filled 08/15/18 Quantity 48 tabs Refills 0 Last rheumatology office visit 03/27/18 Future rheumatology office visit 11/07/18 Lab Results Component Value Date WBC 7.5 08/28/2018 HGB 12.6 08/28/2018 MCV 102 08/28/2018 MCH 32.2 08/28/2018 MCHC 31.7 08/28/2018 RDW 13.6 08/28/2018 PLT 250 08/28/2018 Lab Results Component Value Date ALT 32 08/28/2018 Lab Results Component Value Date AST 22 08/28/2018 Lab Results Component Value Date CR 0.90 08/28/2018 No results found for: URIC SECURITY documented in this encounter Plan of Treatment Not on file documented as of this encounter Visit Diagnoses Diagnosis Rheumatoid arthritis of multiple sites without rheumatoid factor (H) Rheumatoid arthritis documented in this encounter Additional Health Concerns Infection Onset Date Last Indicated Resolved Time COVID-19 06/23/2020 06/23/2020 07/14/2020 11:4 0 PM VP SECURITY Recovered COVID 07/08/2020 07/08/2020 09/21/2020 1 1:39 PM VP SECURITY Assessment Noted Time PHQ-9 Depression Total Score: 13 018 7:20 AM VP SECURITY documented as of this encounter Care Teams Information Clerk Relationship Specialty Start Date End Date Bonny Cooley MD [address] [place] [address] PCP - General Family Practice 09/30/15 06/02/21 Bonny Cooley MD [address] [id number] PCP - Assigned PCP 10/05/15 10/10/18 Aminata Youssef MD [facility] [address] [place] [address] PCP - General Internal Medicine 06/03/21 Bettye Gonzales MD Internal Medicine 04/10/15 Antony Chakraborty MD [address] [place] [address] 101 [place] [address] INTERNAL MEDICINE - ENDOCRINOLOGY, DIABETES & METABOLISM 11/13/15 Mateo Cheema MD [address] [address] Internal Medicine 08/06/16 Ermias Colón MD [address] [address] Referring Physician Neurology 09/23/16 Bonny Cooley MD [address] [id number] Assigned PCP 10/05/15 07/26/20 Pam Hernandez MD [address] [place] [address] [place], [place] 08[address] Assigned Behavioral Health Provider 05/30/20 08/01/21 Lázaro Horowitz MD [address] [address] Assigned Rheumatology Provider 05/30/20 07/19/20 Jaime Grover MD [address] [place] [address] Assigned Gastroenterology Provider 05/30/20 11/14/21 Toni Sheth MD [address] [address] Assigned Pediatric Specialist Provider 05/30/20 09/07/20 Toni Sheth MD [address] [address] Assigned Surgical Provider 05/30/2006/28 Bertram Elizabeth MD [address] [address] Assigned PCP 07/27/20 04/25/21 Bonny Cooley MD [address] [address] Assigned PCP 04/26/21 08/15/21 Bertram Elizabeth MD [address] [place] [address] Assigned PCP 08/16/21 10/24/21 Alex Johnson MD [address] [place] [address] Assigned Rheumatology Provider 10/18/21 04/15/23 Bonny Cooley MD [address] [place] [address] Assigned PCP 10/25/21 04/02/22 Bertram Elizabeth MD [address] [place] [address] Assigned PCP 04/03/22 07/23/22 Bertram Elizabeth MD [facility] [address] [address] Assigned PCP 10/02/22 04/29/23 documented as of this encounter
--- OUTSIDE RECORDS SUMMARY | 2024-02-03 12:52 | XMS_ITS | Encounter Summary ---
Author Organization [place] Address [address] [place] [address] Care Team Providers Care Police Lieutenant Name Role Phone Bettye Gonzales MD Unavailable + Bonny Cooley MD Primary Care Provider Antony Chakraborty MD Unavailable Mateo Cheema MD Unavailable Ermias Colón MD Unavailable Bonny Cooley MD Unavailable [phone] Bonny Cooley MD Unavailable [phone] Pam Hernandez MD Unavailable [phone] Lázaro Horowitz MD Unavailable Jaime Grover MD Unavailable Toni Sheth MD Unavailable [phone] Toni Sheth MD Unavailable [phone] Bertram Elizabeth MD Unavailable Bonny Cooley MD Unavailable [phone] Aminata Youssef MD Primary Care Provider Bertram Elizabeth MD Unavailable Alex Johnson MD Unavailable [phone] Bonny Cooley MD Unavailable [phone] Bertram Elizabeth MD Unavailable Bertram Elizabeth MD Unavailable Reason for Visit * Reason Onset Date Comments Lamictal Taper 04/12/2018 Encounter Details Date Type Department Care Team (Late st Contact Info) Description 04/12/2018 MyC Medical Advice [facility] [address] [address] Ermias Colón MD [address] [place], [place] [address] Lamictal Taper Social History Tobacco Use Types Packs/Day Years Used Date Smoking Tobacco: Former Cigarettes 2 3 0 04/23/1976 - 12/17/1977 Smokeless Tobacco: Never Alcohol Use Standard Drinks/Week Comments No 0 (1 standard drink = 0.6 oz pur e alcohol) Sex and Gender Information Value Date Recorded Sex Assigned at Female 08/28/2018 12:23 AM VACUUM WORKER Gender Identity Female 08/28/2018 12:23 AM VACUUM WORKER Sexual Orientation Straight 10/11/2019 2: 51 PM VACUUM WORKER documented as of this encounter Miscellaneous Notes * Telephone Encounter - Tara Lou RN - 04/14/2018 11:37 AM CDT My Chart message sent to patient to schedule appointment to discuss taper. Tara Lou RN * Telephone Encounter - Bonny Cooley MD - 04/14/2018 11:25 AM CDT I am unsure if he would see her as medication was started by Dr. Champion (pyschiatrist). DM * Telephone Encounter - Tara Lou RN - 04/14/2018 10:50 AM CDT Should she see you or Dr Colón? She sent the same message to both of you. aTra Lou RN * Telephone Encounter - Bonny Cooley MD - 04/14/2018 10:33 AM CDT Pt would need to schedule appt to discuss taper. DM * Telephone Encounter - Katlin Madrid RN - 04/12/2018 5:[address] Cooley-Please review and advise. Pharmacy pended. Thank you! MARY KATE Carr, RN documented in this encounter Plan of Treatment Not on file documented as of this encounter Visit Diagnoses Diagnosis Generalized anxiety disorder- Primary documented in this encounter Additional Health Concerns Infection Onset Date Last Indicated Resolved Time COVID-19 06/23/2020 06/23/2020 07/14/2020 11:4 0 PM VACUUM WORKER Recovered COVID 07/08/2020 07/08/2020 09/21/2020 1 1:39 PM VACUUM WORKER Assessment Noted Time PHQ-9 Depression Total Score: 12 018 7:15 AM CDT documented as of this encounter Care Teams Police Lieutenant Relationship Specialty Start Date End Date Bonny Cooley MD [address] [place], [place] [phone] PCP - General Family Practice 09/30/15 06/02/21 Bonny Cooley MD [address] [address] PCP - Assigned PCP 10/05/15 10/10/18 Aminata Youssef MD [facility] [address] [place] [address] PCP - General Internal Medicine 06/03/21 Bettye Gonzales MD Internal Medicine 04/10/15 Antony Chakraborty MD [address] [address] INTERNAL MEDICINE - ENDOCRINOLOGY, DIABETES & METABOLISM 11/13/15 Mateo Cheema MD [address] [address] Internal Medicine 08/06/16 Ermias Colón MD [address] [address] Referring Physician Neurology 09/23/16 Bonny Cooley MD [address] [address] Assigned PCP 10/05/15 07/26/20 Pam Hernandez MD [address] [place] [address] [place] [address] Assigned Behavioral Health Provider 05/30/20 08/01/21 Lázaro Horowitz MD [facility] [address] [place] [address], [place] [address] Assigned Rheumatology Provider 05/30/20 07/19/20 Jaime Grover MD [address] [place] [address] Assigned Gastroenterology Provider 05/30/20 11/14/21 Toni Sheth MD [address] [address] Assigned Pediatric Specialist Provider 05/30/20 09/07/20 Toni Sheth MD [address] [address] Assigned Surgical Provider 05/30/2006/28 Bertram Elizabeth MD [address] [facility] 200 [place] [address] Assigned PCP 07/27/20 04/25/21 Bonny Cooley MD [address] [address] Assigned PCP 04/26/21 08/15/21 Bertram Elizabeth MD [address] [address] Assigned PCP 08/16/21 10/24/21 Alex Johnson MD [address] [place] [address] Assigned Rheumatology Provider 10/18/21 04/15/23 Bonny Cooley MD [address] [address] Assigned PCP 10/25/21 04/02/22 Bertram Elizabeth MD [address] [address] Assigned PCP 04/03/22 07/23/22 Bertram Elizabeth MD [address] [address] Assigned PCP 10/02/22 04/29/23 documented as of this encounter
--- OUTSIDE RECORDS SUMMARY | 2024-02-03 12:52 | XMS_ITS | Encounter Summary ---
Author Organization [place] Address [address] [place] [address] Care Team Providers Care Labview Programmer Name Role Phone Bettye Gonzales MD Unavailable + Bonny Cooley MD Primary Care Provider Antony Chakraborty MD Unavailable Mateo Cheema MD Unavailable Ermias Colón MD Unavailable Suzanne Fernández RN Unavailable [phone] Bonny Cooley MD Unavailable [phone] Bonny Cooley MD Unavailable [phone] Pam Hernandez MD Unavailable [phone] Lázaro Horowitz MD Unavailable [phone] Jaime Grover MD Unavailable Toni Sheth MD Unavailable [phone] Toni Sheth MD Unavailable [phone] Bertram Elizabeth MD Unavailable [phone] Bonny Cooley MD Unavailable [phone] Aminata Youssef MD Primary Care Provider Bertram Elizabeth MD Unavailable Alex Johnson MD Unavailable Bonny Cooley MD Unavailable Bertram Elizabeth MD Unavailable [phone] Bertram Elizabeth MD Unavailable [phone] Encounter Details Date Type Department Care Team (Late st Contact Info) Description 02/11/2018 MyC Medical Advice [place] [address] [place] [address] Kathryn Brenner Social History Tobacco Use Types Packs/Day Years Used Date Smoking Tobacco: Former Cigarettes 2 3 0 04/23/1976 - 12/17/1977 Smokeless Tobacco: Never Alcohol Use Standard Drinks/Week Comments No 0 (1 standard drink = 0.6 oz pur e alcohol) Sex and Gender Information Value Date Recorded Sex Assigned at Female 08/28/2018 12:23 AM CODING VALIDATOR Gender Identity Female 08/28/2018 12:23 AM CODING VALIDATOR Sexual Orientation Straight 10/11/2019 2: 51 PM CODING VALIDATOR documented as of this encounter Plan of Treatment Not on file documented as of this encounter Visit Diagnoses Not on filedocumented in this encounter Additional Health Concerns Infection Onset Date Last Indicated Resolved Time COVID-19 06/23/2020 06/23/2020 07/14/2020 11:4 0 PM CODING VALIDATOR Recovered COVID 07/08/2020 07/08/2020 09/21/2020 1 1:39 PM CODING VALIDATOR Assessment Noted Time PHQ-9 Depression Total Score: 12 018 7:15 AM CDT documented as of this encounter Care Teams Labview Programmer Relationship Specialty Start Date End Date Bonny Cooley MD [address] [place], [place] [phone] PCP - General Family Practice 09/30/15 06/02/21 Bonny Cooley MD [address] [address] PCP - Assigned PCP 10/05/15 10/10/18 Aminata Youssef MD [facility] [address] [place] [address] PCP - General Internal Medicine 06/03/21 Bettye Gonzales MD Internal Medicine 04/10/15 Antony Chakraborty MD [address] [address] INTERNAL MEDICINE - ENDOCRINOLOGY, DIABETES & METABOLISM 11/13/15 Mateo Cheema MD [address] [address] Internal Medicine 08/06/16 Ermias Colón MD [address] [address] Referring Physician Neurology 09/23/16 Suzanne Fernández, RN Clinic Sr. Director Product Management Primary Care - CC 02/28/18 Bonny Cooley MD [address] [address] Assigned PCP 10/05/15 07/26/20 Pam Hernandez MD [address] [place] [address] [address] [place] 10[address]31 Assigned Behavioral Health Provider 05/30/20 08/01/21 Lázaro Horowitz MD [address] [address] Assigned Rheumatology Provider 05/30/20 07/19/20 Jaime Grover MD [address] [place] [address] Assigned Gastroenterology Provider 05/30/20 11/14/21 Toni Sheth MD [address] [address] Assigned Pediatric Specialist Provider 05/30/20 09/07/20 Toni Sheth MD [address] [address] Assigned Surgical Provider 05/30/2006/28 Bertram Elizabeth MD [address] [place] [address] Assigned PCP 07/27/20 04/25/21 Bonny Cooley MD [address] [address] Assigned PCP 04/26/21 08/15/21 Bertram Elizabeth MD [address] [address] Assigned PCP 08/16/21 10/24/21 Alex Johnson MD [address] [place] [address] Assigned Rheumatology Provider 10/18/21 04/15/23 Bonny Cooley MD [address] [address] Assigned PCP 10/25/21 04/02/22 Bertram Elizabeth MD [address] [address] Assigned PCP 04/03/22 07/23/22 Bertram Elizabeth MD [address] [address] Assigned PCP 10/02/22 04/29/23 documented as of this encounter
--- OUTSIDE RECORDS SUMMARY | 2024-02-03 12:52 | XMS_ITS | Encounter Summary ---
Author Organization [place] Address [address] [place] [address] Care Team Providers Care Guest Services Name Role Phone Bettye Gonzales MD Unavailable + Bonny Cooley MD Primary Care Provider Antony Chakraborty MD Unavailable Mateo Cheema MD Unavailable [phone] Ermias Colón MD Unavailable Suzanne Fernández RN Unavailable [phone] Bonny Cooley MD Unavailable [phone] Bonny Cooley MD Unavailable [phone] Pam Hernandez MD Unavailable [phone] Lázaro Horowitz MD Unavailable [phone] Jaime Grover MD Unavailable Toni Sheth MD Unavailable [phone] Toni Sheth MD Unavailable [phone] Bertram Elizabeth MD Unavailable Bonny Cooley MD Unavailable [phone] Aminata Youssef MD Primary Care Provider Bertram Elizabeth MD Unavailable Alex Johnson MD Unavailable Bonny Cooley MD Unavailable [phone] Bertram Elizabeth MD Unavailable Bertram Elizabeth MD Unavailable Reason for Visit * Reason Onset Date Comments cpap causing isusse 07/27/2017 Encounter Details Date Type Department Care Team (Late st Contact Info) Description 07/27/[address] [address] Nestor Vergara MD [address] [place] [address] cpap causing isusse Social History Tobacco Use Types Packs/Day Years Used Date Smoking Tobacco: Former Cigarettes 2 3 0 04/23/1976 - 12/17/1977 Smokeless Tobacco: Never Alcohol Use Standard Drinks/Week Comments No 0 (1 standard drink = 0.6 oz pur e alcohol) Sex and Gender Information Value Date Recorded Sex Assigned at Female 08/28/2018 12:23 AM FINISHING AND SHIPPING SUPERVISOR Gender Identity Female 08/28/2018 12:23 AM FINISHING AND SHIPPING SUPERVISOR Sexual Orientation Straight 10/11/2019 2: 51 PM FINISHING AND SHIPPING SUPERVISOR documented as of this encounter Miscellaneous Notes * Telephone Encounter - Preethi Esparza - 07/27/2017 3:44 PM CST Patient been using cpap an thinks she got a cold from it. An wanted to let the provider know she isnot using the cpap anymore. Patient would a call back regarding when should she use or should she stop using it all together when she is sick. I transfer the patient to the [facility] as well. SHING AND SHIPPING SUPERVISOR documented in this encounter Plan of Treatment Not on file documented as of this encounter Visit Diagnoses Not on filedocumented in this encounter Additional Health Concerns Infection Onset Date Last Indicated Resolved Time COVID-19 06/23/2020 06/23/2020 07/14/2020 11:4 0 PM FINISHING AND SHIPPING SUPERVISOR Recovered COVID 07/08/2020 07/08/2020 09/21/2020 1 1:39 PM FINISHING AND SHIPPING SUPERVISOR Assessment Noted Time PHQ-9 Depression Total Score: 17 017 1:13 PM CDT documented as of this encounter Care Teams Guest Services Relationship Specialty Start Date End Date Bonny Cooley MD [address] [place] [address] PCP - General Family Practice 09/30/15 06/02/21 Bonny Cooley MD [address] [id number] PCP - Assigned PCP 10/05/15 10/10/[address] [facility] 2000 [place] [address] PCP - General Internal Medicine 06/03/21 Bettye Gonzales MD Internal Medicine 04/10/15 Antony Chakraborty MD [address] [address] INTERNAL MEDICINE - ENDOCRINOLOGY, DIABETES & METABOLISM 11/13/15 Mateo Cheema MD [address] [address] Internal Medicine 08/06/16 Ermias Colón MD [address] [place] [address] 101 [place] [address] Referring Physician Neurology 09/23/16 Suzanne Fernández, RN Clinic Air Traffic Control Equipment Repairer Primary Care - CC 02/28/18 Bonny Cooley MD [address] [address] Assigned PCP 10/05/15 07/26/20 Pam Hernandez MD [address] [place] [address] [place] [address] Assigned Behavioral Health Provider 05/30/20 08/01/21 Lázaro Horowitz MD [facility] [address] [place] [address] Assigned Rheumatology Provider 05/30/20 07/19/20 Jaime Grover MD [address] [place] [address] Assigned Gastroenterology Provider 05/30/20 11/14/21 Toni Sheth MD [address] [address] Assigned Pediatric Specialist Provider 05/30/20 09/07/20 Toni Sheth MD [address] [address] Assigned Surgical Provider 05/30/2006/28 Bertram Elizabeth MD [address] [facility] 200 [place] [address] Assigned PCP 07/27/20 04/25/21 Bonny Cooley MD [facility] 200 [place] [address] Assigned PCP 04/26/21 08/15/21 Bertram Elizabeth MD [address] [facility] [address] [place] [address] Assigned PCP 08/16/21 10/24/21 Alex Johnson MD [address] [place] [address] Assigned Rheumatology Provider 10/18/21 04/15/23 Bonny Cooley MD 0 [facility] 200 [place] [address] Assigned PCP 10/25/21 04/02/22 Bertram Elizabeth MD 0 [facility] 200 [place] [address] Assigned PCP 04/03/22 07/23/22 Bertram Elizabeth MD [address] [facility] [address] [place] [address] Assigned PCP 10/02/22 04/29/23 documented as of this encounter
--- OUTSIDE RECORDS SUMMARY | 2024-02-03 12:52 | XMS_ITS | Encounter Summary ---
Author Organization [facility] Address [address] [place] [address] Care Team Providers Care Signs And Displays Sales Representative Name Role Phone Bettye Gonzales MD Unavailable + Bonny Cooley MD Primary Care Provider Antony Chakraborty MD Unavailable Mateo Cheema MD Unavailable Ermias Colón MD Unavailable Suzanne Fernández RN Unavailable [phone] Bonny Cooley MD Unavailable [phone] Bonny Cooley MD Unavailable [phone] Pam Hernandez MD Unavailable [phone] Lázaro Horowitz MD Unavailable [phone] Jaime Grover MD Unavailable Toni Sheth MD Unavailable [phone] Toni Sheth MD Unavailable [phone] Bertram Elizabeth MD Unavailable [phone] Bonny Cooley MD Unavailable [phone] Aminata Youssef MD Primary Care Provider Bertram Elizabeth MD Unavailable Alex Johnson MD Unavailable Bonny Cooley MD Unavailable [phone] Bertram Elizabeth MD Unavailable Bertram Elizabeth MD Unavailable Reason for Visit * Reason Onset Date Comments Faintness 01/01/2017 Medication Question 01/01/2017 Lasix, and a rthritis/anti-depression med Encounter Details Date Type Department Care Team (Late st Contact Info) Description 01/01/2017 MyC Medical Advice [address] [address] Bonny Cooley MD [address] [address] Faintness; Medication Question (Lasix, and... Social History Tobacco Use Types Packs/Day Years Used Date Smoking Tobacco: Never Smokeless Tobacco: Never Alcohol Use Standard Drinks/Week Comments No 0 (1 standard drink = 0.6 oz pur e alcohol) Sex and Gender Information Value Date Recorded Sex Assigned at Female 08/28/2018 12:23 AM LOG ROPER Gender Identity Female 08/28/2018 12:23 AM LOG ROPER Sexual Orientation Straight 10/11/2019 2: 51 PM LOG ROPER documented as of this encounter Miscellaneous Notes * Telephone Encounter - Nolvia Townsend RN - 01/04/2017 4:49 PM CDT Message to patient with info from Dr. Cooley as below. Nolvia Townsend, OZZYN, RN [facility] * Telephone Encounter - Bonny Cooley MD - 01/04/2017 4:05 PM CDT I also read pts other message about joint swelling. I have ordered Lasix which she can restart. Dueto the edema, I have ordered an echo to r/u heart failure. Repeat BMP in one week. I have to discuss using cymbalta with Dr. Champion as pt does have a h/o bipolar disorder. I'll let ptknow his recommendations. It is unclear what is causing fainting feeling. If it continues to persist, I would have pt see neuro. DM * Telephone Encounter - Katlin Germain, RN - 01/04/2017 7:20 AM CDT Lasix and pharmacy pended. Dr. Cooley-Please review and advise/sign if agree. Thank you! MARY KATE Johnson, RN documented in this encounter Plan of Treatment Not on file documented as of this encounter Visit Diagnoses Diagnosis Generalized edema Edema documented in this encounter Additional Health Concerns Infection Onset Date Last Indicated Resolved Time COVID-19 06/23/2020 06/23/2020 07/14/2020 11:4 0 PM LOG ROPER Recovered COVID 07/08/2020 07/08/2020 09/21/2020 1 1:39 PM LOG ROPER Assessment Noted Time PHQ-9 Depression Total Score: 6 09/22/19 17 7:27 AM LOG ROPER documented as of this encounter Care Teams Signs And Displays Sales Representative Relationship Specialty Start Date End Date Bonny Cooley MD [address] [place] [address] PCP - General Family Practice 09/30/15 06/02/21 Bonny Cooley MD [address] [address] PCP - Assigned PCP 10/05/15 10/10/18 Aminata Youssef MD [facility] [address] [place] [address] PCP - General Internal Medicine 06/03/21 Bettye Gonzales MD Internal Medicine 04/10/15 Antony Chakraborty MD [address] [address] MD INTERNAL MEDICINE - ENDOCRINOLOGY, DIABETES & METABOLISM 11/13/15 Mateo Cheema MD [address] [address] Internal Medicine 08/06/16 Ermias Colón MD [address] [address] Referring Physician Neurology 09/23/16 Suzanne Fernández, RN Clinic Imaging Aide Primary Care - CC 02/28/18 Bonny Cooley MD [address] [address] Assigned PCP 10/05/15 07/26/20 Pam Hernandez MD [address] [place] [address] [place] [address] Assigned Behavioral Health Provider 05/30/20 08/01/21 Lázaro Horowitz MD [address] [address] Assigned Rheumatology Provider 05/30/20 07/19/20 Jaime Grover MD [address] [place] [address] Assigned Gastroenterology Provider 05/30/20 11/14/21 Toni Sheth MD [address] [address] Assigned Pediatric Specialist Provider 05/30/20 09/07/20 Toni Sheth MD [address] [address] Assigned Surgical Provider 05/30/2006/28 Bertram Elizabeth MD [address] [address] Assigned PCP 07/27/20 04/25/21 Bonny Cooley MD [address] [address] Assigned PCP 04/26/21 08/15/21 Bertram Elizabeth MD [address] [address] Assigned PCP 08/16/21 10/24/21 Alex Johnson MD [address] [place] [address] Assigned Rheumatology Provider 10/18/21 04/15/23 Bonny Cooley MD [address] [place] [address] Assigned PCP 10/25/21 04/02/22 Bertram Elizabeth MD [address] [place] [address] Assigned PCP 04/03/22 07/23/22 Bertram Elizabeth MD [address] [place] [address] Assigned PCP 10/02/22 04/29/23 documented as of this encounter
--- OUTSIDE RECORDS SUMMARY | 2024-02-03 12:52 | XMS_ITS | Encounter Summary ---
Author Organization [facility] Address [address] [place] [address] Care Team Providers Care Mortgage Or Loan Underwriter Name Role Phone Bettye Gonzales MD Unavailable + Bonny Cooley MD Primary Care Provider Antony Chakraborty MD Unavailable Mateo Cheema MD Unavailable Ermias Colón MD Unavailable Suzanne Fernández RN Unavailable [phone] Bonny Cooley MD Unavailable [phone] Bonny Cooley MD Unavailable [phone] Pam Hernandez MD Unavailable [phone] Lázaro Horowitz MD Unavailable [phone] Jaime Grover MD Unavailable Toni Sheth MD Unavailable [phone] Toni Sheth MD Unavailable [phone] Bertram Elizabeth MD Unavailable Bonny Cooley MD Unavailable [phone] Aminata Youssef MD Primary Care Provider Bertram Elizabeth MD Unavailable [phone] Alex Johnson MD Unavailable Bonny Cooley MD Unavailable [phone] Bertram Elizabeth MD Unavailable [phone] Bertram Elizabeth MD Unavailable [phone] Encounter Details Date Type Department Care Team (Late st Contact Info) Description 12/14/2016 MyC Medical Advice [facility] Endocrinology [address] [facility] [address] [place] [phone] Mateo Cheema MD [address] [place] [address] [address] [place] [address] Social History Tobacco Use Types Packs/Day Years Used Date Smoking Tobacco: Never Smokeless Tobacco: Never Alcohol Use Standard Drinks/Week Comments No 0 (1 standard drink = 0.6 oz pur e alcohol) Sex and Gender Information Value Date Recorded Sex Assigned at Female 08/28/2018 12:23 AM ELECTRONIC INSTRUMENT TRADES WORKER Gender Identity Female 08/28/2018 12:23 AM ELECTRONIC INSTRUMENT TRADES WORKER Sexual Orientation Straight 10/11/2019 2: 51 PM ELECTRONIC INSTRUMENT TRADES WORKER documented as of this encounter Plan of Treatment Not on file documented as of this encounter Visit Diagnoses Not on filedocumented in this encounter Additional Health Concerns Infection Onset Date Last Indicated Resolved Time COVID-19 06/23/2020 06/23/2020 07/14/2020 11:4 0 PM ELECTRONIC INSTRUMENT TRADES WORKER Recovered COVID 07/08/2020 07/08/2020 09/21/2020 1 1:39 PM ELECTRONIC INSTRUMENT TRADES WORKER Assessment Noted Time PHQ-9 Depression Total Score: 6 09/22/19 17 7:27 AM ELECTRONIC INSTRUMENT TRADES WORKER documented as of this encounter Care Teams Mortgage Or Loan Underwriter Relationship Specialty Start Date End Date Bonny Cooley MD [address] [place], [place] [id number] PCP - General Family Practice 09/30/15 06/02/21 Bonny Cooley MD [address] [address] PCP - Assigned PCP 10/05/15 10/10/18 Aminata Youssef MD [facility] - [address] [address] PCP - General Internal Medicine 06/03/21 Bettye Gonzales MD Internal Medicine 04/10/15 Antony Chakraborty MD [address] [address] INTERNAL MEDICINE - ENDOCRINOLOGY, DIABETES & METABOLISM 11/13/15 Mateo Cheema MD [address] [place] [address] [address] Internal Medicine 08/06/16 Ermias Colón MD [address] [address] Referring Physician Neurology 09/23/16 Suzanne Fernández, RN Clinic Cage/Vault Supervisor Primary Care - CC 02/28/18 Bonny Cooley MD [address] [address] Assigned PCP 10/05/15 07/26/20 Pam Hernandez MD [address] [facility] [place] [address] Assigned Behavioral Health Provider 05/30/20 08/01/21 Lázaro Horowitz MD [facility] [address] [place] [address] Assigned Rheumatology Provider 05/30/20 07/19/20 Jaime Grover MD [address] [place] [address] Assigned Gastroenterology Provider 05/30/20 11/14/21 Toni Sheth MD [address] [address] Assigned Pediatric Specialist Provider 05/30/20 09/07/20 Toni Sheth MD [address] [address] Assigned Surgical Provider 05/30/2006/28 Bertram Elizabeth MD [address] [address] Assigned PCP 07/27/20 04/25/21 Bonny Cooley MD [address] [address] Assigned PCP 04/26/21 08/15/21 Bertram Elizabeth MD [address] [address] Assigned PCP 08/16/21 10/24/21 Alex Johnson MD [address] [place] [address] Assigned Rheumatology Provider 10/18/21 04/15/23 Bonny Cooley MD [address] [place] [address] Assigned PCP 10/25/21 04/02/22 Bertram Elizabeth MD [address] [place] [address] Assigned PCP 04/03/22 07/23/22 Bertram Elizabeth MD [facility] [address] [address] Assigned PCP 10/02/22 04/29/23 documented as of this encounter
--- OUTSIDE RECORDS SUMMARY | 2024-02-03 12:52 | XMS_ITS | Encounter Summary ---
Author Organization [facility] Address [address] [place] [address] Care Team Providers Care Driver Education Instructor Name Role Phone Bettye Gonzales MD Unavailable + Bonny Cooley MD Primary Care Provider Antony Chakraborty MD Unavailable Mateo Cheema MD Unavailable Ermias Colón MD Unavailable Suzanne Fernández RN Unavailable [phone] Bonny Cooley MD Unavailable [phone] Bonny Cooley MD Unavailable [phone] Pam Hernandez MD Unavailable [phone] Lázaro Horowitz MD Unavailable [phone] Jaime Grover MD Unavailable Toni Sheth MD Unavailable [phone] Toni Sheth MD Unavailable [phone] Bertram Elizabeth MD Unavailable Bonny Cooley MD Unavailable [phone] Aminata Youssef MD Primary Care Provider [phone] Bertram Elizabeth MD Unavailable Alex Johnson MD Unavailable Bonny Cooley MD Unavailable [phone] Bertram Elizabeth MD Unavailable Bertram Elizabeth MD Unavailable Reason for Referral * Audiology - Closed Specialty Diagnoses / Procedures Referred By Contac t Referred To Contact Diagnoses Change in hearing, bilateral Bonny Cooley MD [address] [place] [address] MULTIPLE LOCATIONS Referral ID Status Reason Start Date Expiration Date Visits Re quested Visits Authorized [id number] Closed 12/22/2016 12/22/2017 1 1 Comments Your provider has referred you to: [facility]: [facility] - [place] [email or web address] [place] [facility] [place] [email or web address] Specialty Testing: Audiogram w/Tymps and Reflexes (Comprehensive Audiology Evaluation) Reason for Visit * Reason Onset Date Comments Hearing change 12/21/2016 Encounter Details Date Type Department Care Team (Late st Contact Info) Description 12/21/2016 [facility] [address] [place] [phone] Bonny Cooley MD [address] [address] Hearing change Social History Tobacco Use Types Packs/Day Years Used Date Smoking Tobacco: Never Smokeless Tobacco: Never Alcohol Use Standard Drinks/Week Comments No 0 (1 standard drink = 0.6 oz pur e alcohol) Sex and Gender Information Value Date Recorded Sex Assigned at Female 08/28/2018 12:23 AM INTEGRATED SPECIALIST Gender Identity Female 08/28/2018 12:23 AM INTEGRATED SPECIALIST Sexual Orientation Straight 10/11/2019 2: 51 PM INTEGRATED SPECIALIST documented as of this encounter Miscellaneous Notes * Telephone Encounter - Katlin Germain RN - 12/22/2016 10:51 AM CDT Practice Nurse responded as per below. MARY KATE Johnson, [facility] * Telephone Encounter - Bonny Cooley MD - 12/22/2016 10:42 AM CDT Referral signed. DM * Telephone Encounter - Katlin Germain RN - 12/22/2016 9:55 AM CDT Audiology referral pended. Dr. Cooley-Please review and sign if agree. Thank you! MARY KATE Johnson, RN documented in this encounter Plan of Treatment Scheduled Referrals Name Type Priority Associated Diagnoses Orde r Schedule AUDIOLOGY ADULT REFERRAL Referral Routine Change in hearing, bilateral Ordered: 12/22/2016 documented as of this encounter Visit Diagnoses Diagnosis Change in hearing, bilateral- Primary documented in this encounter Additional Health Concerns Infection Onset Date Last Indicated Resolved Time COVID-19 06/23/2020 06/23/2020 07/14/2020 11:4 0 PM INTEGRATED SPECIALIST Recovered COVID 07/08/2020 07/08/2020 09/21/2020 1 1:39 PM INTEGRATED SPECIALIST Assessment Noted Time PHQ-9 Depression Total Score: 6 09/22/19 17 7:27 AM INTEGRATED SPECIALIST documented as of this encounter Care Teams Driver Education Instructor Relationship Specialty Start Date End Date Bonny Cooley MD [address] [place] [address] PCP - General Family Practice 09/30/15 06/02/21 Bonny Cooley MD [address] [address] PCP - Assigned PCP 10/05/15 10/10/18 Aminata Youssef MD [facility] - [address] [address] PCP - General Internal Medicine 06/03/21 Bettye Gonzales MD Internal Medicine 04/10/15 Antony Chakraborty MD [address] [place] [address] [address] INTERNAL MEDICINE - ENDOCRINOLOGY, DIABETES & METABOLISM 11/13/15 Mateo Cheema MD 420 [facility] [address] [address] Internal Medicine 08/06/16 Ermias Colón MD [address] [place] [address] [address] Referring Physician Neurology 09/23/16 Suzanne Fernández, [facility] Clinic Blunger Machine Operator Primary Care - CC 02/28/18 Bonny Cooley MD [address] [address] Assigned PCP 10/05/15 07/26/20 Pam Hernandez MD [address] [place] [address] [place] [address] Assigned Behavioral Health Provider 05/30/20 08/01/21 Lázaro Horowitz MD [facility] [address] [place] [address] Assigned Rheumatology Provider 05/30/20 07/19/20 Jaime Grover MD [address] [place] [address] Assigned Gastroenterology Provider 05/30/20 11/14/21 Toni Sheth MD [address] [address] Assigned Pediatric Specialist Provider 05/30/20 09/07/20 Toni Sheth MD [address] [address] Assigned Surgical Provider 05/30/2006/28 Bertram Elizabeth MD [address] [address] Assigned PCP 07/27/20 04/25/21 Bonny Cooley MD [address] [address] Assigned PCP 04/26/21 08/15/21 Bertram Elizabeht MD 2270 [facility] [address] [place] [address] Assigned PCP 08/16/21 10/24/21 Alex Johnson MD [address] [place] [address] Assigned Rheumatology Provider 10/18/21 04/15/23 Bonny Cooley MD [address] [place] [address] Assigned PCP 10/25/21 04/02/22 Bertram Elizabeth MD [address] [address] Assigned PCP 04/03/22 07/23/22 Bertram Elizabeth MD [address] [address] Assigned PCP 10/02/22 04/29/23 documented as of this encounter
--- OUTSIDE RECORDS SUMMARY | 2024-02-03 12:52 | XMS_ITS | Encounter Summary ---
Author Organization [facility] Address [address] [place] [address] Care Team Providers Care Traction Power Engineer Name Role Phone Bettye Gonzales MD Unavailable + Bonny Cooley MD Primary Care Provider [phone] Antony Chakraborty MD Unavailable Mateo Cheema MD Unavailable [phone] Ermias Colón MD Unavailable Suzanne Fernández RN Unavailable [phone] Bonny Cooley MD Unavailable [phone] Bonny Cooley MD Unavailable [phone] Pam Hernandez MD Unavailable [phone] Lázaro Horowitz MD Unavailable [phone] Jaime Grover MD Unavailable [phone] Toni Sheth MD Unavailable [phone] Toni Sheth MD Unavailable [phone] Bertram Elizabeth MD Unavailable Bonny Cooley MD Unavailable [phone] Aminata Youssef MD Primary Care Provider Bertram Elizabeth MD Unavailable lAex Johnson MD Unavailable Bonny Cooley MD Unavailable [phone] Bertram Elizabeth MD Unavailable Bertram Elizabeth MD Unavailable [phone] Reason for Visit * Reason Onset Date Comments Refill Request 12/08/2017 CELECOXIB 100MG CAPS Encounter Details Date Type Department Care Team (Late st Contact Info) Description 12/08/[address] [address] Bonny Cooley MD [address] [address] Refill Request (CELECOXIB 100MG CAPS) Social History Tobacco Use Types Packs/Day Years Used Date Smoking Tobacco: Former Cigarettes 2 3 0 04/23/1976 - 12/17/1977 Smokeless Tobacco: Never Alcohol Use Standard Drinks/Week Comments No 0 (1 standard drink = 0.6 oz pur e alcohol) Sex and Gender Information Value Date Recorded Sex Assigned at Female 08/28/2018 12:23 AM BRAZING MACHINE SETTER Gender Identity Female 08/28/2018 12:23 AM BRAZING MACHINE SETTER Sexual Orientation Straight 10/11/2019 2: 51 PM BRAZING MACHINE SETTER documented as of this encounter Miscellaneous Notes * Telephone Encounter - Bonny Cooley MD - 12/13/2017 2:15 PM CDT Refill done for one month. Can pt follow up for a visit. DM * Telephone Encounter - Tara Lou RN - 12/12/2017 6:15 PM CDT ALT not in range Routing to provider per protocol. Tara Lou, RN * Telephone Encounter - Sari Kessler - 12/08/2017 8:38 AM CDT Requested Prescriptions Pending Prescriptions Disp Refills ??? celecoxib (CELEBREX) 100 MG capsule [Pharmacy Med Name: CELECOXIB 100MG CAPS] Last Written Prescription Date: 11/04/2017 Last Fill Quantity: 60 capsule, # refills: 0 Last Office Visit: 2017 Future Office Visit: 60 capsule 0 Sig: TAKE ONE CAPSULE BY MOUTH TWICE A DAY NSAID Medications Failed 12/08/2017 12:59 AM Failed - Normal ALT on file in past 12 months Recent Labs Lab Test 08/09/17 1017 ALT 57* Failed - Patient is age 6-64 years Passed - Blood pressure under 140/90 in past 12 months BP Readings from Last 3 Encounters: 08/09/17 138/78 07/19/17 123/77 07/04/17 148/83 Passed - Normal AST on file in past 12 months Recent Labs Lab Test 08/09/17 1017 AST 35 Passed - Recent (12 mo) or future (30 days) visit within the authorizing provider's specialty Patient had office visit in the last 12 months or has a visit in the next 30 days with authorizing provider or within the authorizing provider's specialty. See Patient Info tab in inbasket, or Choose Columns in Meds & Orders section of the refill encounter. Passed - Normal CBC on file in past 12 months Recent Labs Lab Test 08/09/17 1017 WBC 13.0* RBC 3.80 HGB 11.9 HCT 39.2 PLT 404 Passed - No active on record Passed - Normal serum creatinine on file in past 12 months Recent Labs Lab Test 08/09/17 1017 CR 0.90 Passed - No positive test in past 12 months documented in this encounter Plan of Treatment Not on file documented as of this encounter Visit Diagnoses Diagnosis Osteoarthritis, unspecified osteoarthritis type, unspecified site documented in this encounter Additional Health Concerns Infection Onset Date Last Indicated Resolved Time COVID-19 06/23/2020 06/23/2020 07/14/2020 11:4 0 PM BRAZING MACHINE SETTER Recovered COVID 07/08/2020 07/08/2020 09/21/2020 1 1:39 PM BRAZING MACHINE SETTER Assessment Noted Time PHQ-9 Depression Total Score: 6 11/04/19 18 7:48 AM CDT documented as of this encounter Care Teams Traction Power Engineer Relationship Specialty Start Date End Date Bonny Cooley MD [address] [place] [address] PCP - General Family Practice 09/30/15 06/02/21 Bonny Cooley MD [address] [id number] PCP - Assigned PCP 10/05/15 10/10/18 Aminata Youssef MD [facility] - [address] [address] PCP - General Internal Medicine 06/03/21 Bettye Gonzales MD Internal Medicine 04/10/15 Antony Chakraborty MD [address] [place] [address] [address] INTERNAL MEDICINE - ENDOCRINOLOGY, DIABETES & METABOLISM 11/13/15 Mateo Cheema MD [address] [place] [address] [address] Internal Medicine 08/06/16 Ermias Colón MD [address] [place] [address] [address] Referring Physician Neurology 09/23/16 Suzanne Fernández, RN Clinic Form Setter [employer] Forms Primary Care - CC 02/28/18 Bonny Cooley MD [address] [address] Assigned PCP 10/05/15 07/26/20 Pam Hernandez MD [address] [place] [address] [place] [address] Assigned Behavioral Health Provider 05/30/20 08/01/21 Lázaro Horowitz MD [address] [address] Assigned Rheumatology Provider 05/30/20 07/19/20 Jaime Grover MD [address] [place] [address] Assigned Gastroenterology Provider 05/30/20 11/14/21 Toni Sheth MD [address] [address] Assigned Pediatric Specialist Provider 05/30/20 09/07/20 Toni Sheth MD [address] [address] Assigned Surgical Provider 05/30/2006/28 Bertram Elizabeth MD [address] [address] Assigned PCP 07/27/20 04/25/21 Bonny Cooley MD [address] [address] Assigned PCP 04/26/21 08/15/21 Bertram Elizabeth MD [address] [place] [address] Assigned PCP 08/16/21 10/24/21 Alex Johnson MD [address] [place] [address] Assigned Rheumatology Provider 10/18/21 04/15/23 Bonny Cooley MD [address] [place] [address] Assigned PCP 10/25/21 04/02/22 Bertram Elizabeth MD [address] [address] Assigned PCP 04/03/22 07/23/22 Bertram Elizabeth MD [address] [address] Assigned PCP 10/02/22 04/29/23 documented as of this encounter
--- OUTSIDE RECORDS SUMMARY | 2024-02-03 12:52 | XMS_ITS | Encounter Summary ---
Author Organization [facility] Address [address] [place] [address] Care Team Providers Care Wind Energy Technician Name Role Phone Bettye Gonzales MD Unavailable + Bonny Cooley MD Primary Care Provider [phone] Antony Chakraborty MD Unavailable Mateo Cheema MD Unavailable [phone] Ermias Colón MD Unavailable Suzanne Fernández RN Unavailable [phone] Bonny Cooley MD Unavailable [phone] Bonny Cooley MD Unavailable [phone] Pam Hernandez MD Unavailable [phone] Lázaro Horowitz MD Unavailable [phone] Jaime Grover MD Unavailable Toni Sheth MD Unavailable [phone] Toni Sheth MD Unavailable [phone] Bertram Elizabeth MD Unavailable Bonny Cooley MD Unavailable [phone] Aminata Yuossef MD Primary Care Provider Bertram Elizabeth MD Unavailable Alex Johnson MD Unavailable Bonny Cooley MD Unavailable [phone] Bertram Elizabeth MD Unavailable [phone] Bertram Elizabeth MD Unavailable [phone] Encounter Details Date Type Department Care Team (Late st Contact Info) Description 01/25/2018 [facility] Medical Advice [address] [address] Lázaor Horowitz MD [facility] [address] [place] [address] Social History Tobacco Use Types Packs/Day Years Used Date Smoking Tobacco: Former Cigarettes 2 3 0 04/23/1976 - 12/17/1977 Smokeless Tobacco: Never Alcohol Use Standard Drinks/Week Comments No 0 (1 standard drink = 0.6 oz pur e alcohol) Sex and Gender Information Value Date Recorded Sex Assigned at Female 08/28/2018 12:23 AM BARREL BANDER Gender Identity Female 08/28/2018 12:23 AM BARREL BANDER Sexual Orientation Straight 10/11/2019 2: 51 PM BARREL BANDER documented as of this encounter Plan of Treatment Not on file documented as of this encounter Visit Diagnoses Not on filedocumented in this encounter Additional Health Concerns Infection Onset Date Last Indicated Resolved Time COVID-19 06/23/2020 06/23/2020 07/14/2020 11:4 0 PM BARREL BANDER Recovered COVID 07/08/2020 07/08/2020 09/21/2020 1 1:39 PM BARREL BANDER Assessment Noted Time PHQ-9 Depression Total Score: 12 018 7:15 AM CDT documented as of this encounter Care Teams Wind Energy Technician Relationship Specialty Start Date End Date Bonny Cooley MD [address] [place], [place] [id number] PCP - General Family Practice 09/30/15 06/02/21 Bonny Cooley MD [address] [address] PCP - Assigned PCP 10/05/15 10/10/18 Aminata Youssef MD [address] [address] PCP - General Internal Medicine 06/03/21 Bettye Gonzales MD Internal Medicine 04/10/15 Antony Chakraborty MD [address] [address] INTERNAL MEDICINE - ENDOCRINOLOGY, DIABETES & METABOLISM 11/13/15 Mateo Cheema MD [address] [address] Internal Medicine 08/06/16 Ermias Colón MD [address] [address] Referring Physician Neurology 09/23/16 Suzanne Fernández, [facility] President Of [place] Primary Care - CC 02/28/18 Bonny Cooley MD [address] [address] Assigned PCP 10/05/15 07/26/20 Pam Hernandez MD [address] [place] [address] [place] [address] Assigned Behavioral Health Provider 05/30/20 08/01/21 Lázaro Horowitz MD [address] [address] Assigned Rheumatology Provider 05/30/20 07/19/20 Jaime Grover MD [address] [place] [place] [address] Assigned Gastroenterology Provider 05/30/20 11/14/21 Toni Sheth MD [address] [address] Assigned Pediatric Specialist Provider 05/30/20 09/07/20 Toni Sheth MD [address] [address] Assigned Surgical Provider 05/30/2006/28 Bertram Elizabeth MD [address] [place] [address] Assigned PCP 07/27/20 04/25/21 Bonny Cooley MD [address] [place] [address] Assigned PCP 04/26/21 08/15/21 Bertram Elizabeth MD [address] [place] [address] Assigned PCP 08/16/21 10/24/21 Alex Johnson MD [address] [place] [address] Assigned Rheumatology Provider 10/18/21 04/15/23 Bonny Cooley MD 2270 [facility] 200 [place] [address] Assigned PCP 10/25/21 04/02/22 Bertram Elizabeth MD [address] [address] Assigned PCP 04/03/22 07/23/22 Bertram Elizabeth MD [address] [address] Assigned PCP 10/02/22 04/29/23 documented as of this encounter
--- OUTSIDE RECORDS SUMMARY | 2024-02-03 12:52 | XMS_ITS | Encounter Summary ---
Author Organization [facility] Address [address] [place] [address] Care Team Providers Care Machine Bookkeeper Name Role Phone Bettye Gonzales MD Unavailable + Bonny Cooley MD Primary Care Provider [phone] Antony Chakraborty MD Unavailable Mateo Cheema MD Unavailable Ermias Colón MD Unavailable Suzanne Fernández RN Unavailable [phone] Bonny Cooley MD Unavailable [phone] Bonny Cooley MD Unavailable [phone] Pam Hernandez MD Unavailable [phone] Lázaro Horowitz MD Unavailable [phone] Jaime Grover MD Unavailable Toni Sheth MD Unavailable [phone] Toni Sheth MD Unavailable [phone] Bertram Elizabeth MD Unavailable Bonny Cooley MD Unavailable [phone] Aminata Youssef MD Primary Care Provider [phone] Bertram Elizabeth MD Unavailable [phone] Alex Johnson MD Unavailable [phone] Bonny Cooley MD Unavailable [phone] Bertram Elizabeth MD Unavailable [phone] Bertram Elizabeth MD Unavailable [phone] Reason for Visit * Reason Onset Date Comments Refill Request 07/14/2017 methotrexate Encounter Details Date Type Department Care Team (Latest Contact Info) Description 07/14/2017 [facility] Medical Advice [address] [address] Lázaro Horowitz MD [address] [address] Refill Request (methotrexate) Social History Tobacco Use Types Packs/Day Years Used Date Smoking Tobacco: Former Cigarettes 2 3 0 04/23/1976 - 12/17/1977 Smokeless Tobacco: Never Alcohol Use Standard Drinks/Week Comments No 0 (1 standard drink = 0.6 oz pur e alcohol) Sex and Gender Information Value Date Recorded Sex Assigned at Female 08/28/2018 12:23 AM INTERNATIONAL EDITORIAL PRODUCER Gender Identity Female 08/28/2018 12:23 AM INTERNATIONAL EDITORIAL PRODUCER Sexual Orientation Straight 10/11/2019 2: 51 PM INTERNATIONAL EDITORIAL PRODUCER documented as of this encounter Miscellaneous Notes * Telephone Encounter - Esme Cabello RN - 07/14/2017 9:45 AM INTERNATIONAL EDITORIAL PRODUCER Pt sent [facility] message that she is completely out of med & she takes her weekly dose of methotrexate on . Please review & sign, if appropriate. Thanks. Notes from 05/10: Rheumatoid arthritis disease activity: LOW on methotrexate 20mg PO weekly (started January 2017), prednisone 5 mg PO daily. Continue same dose of methotrexate. Methotrexate 2.5 mg 8 tabs weekly Last Written Prescription Date: 04/12/17 Last Fill Quantity: 96, # refills: 0 Last Office Visit: 05/10/17 Future Office visit: Next 5 appointments (look out 90 days) Aug 09, 2017 9:15 AM INTERNATIONAL EDITORIAL PRODUCER Return Visit with Lázaro Horowitz MD [facility] ([facility] [address] [phone] Routing refill request to provider for review/approval because: Drug not on the [facility], [facility] or [facility] refill protocol or controlled substance Vee, lead burner Nurse RNATIONAL EDITORIAL PRODUCER * Telephone Encounter - Ignacia Robertson RN - 07/14/2017 9:35 AM INTERNATIONAL EDITORIAL PRODUCER Refill request for METHOTREXATE 20 QWK (THURSDAYS) Medication last filled 04/12/17 Quantity 96 Refills 0 Last rheumatology office visit 05/10/17 Future rheumatology office visit 08/09/17 Lab Results Component Value Date WBC 10.0 04/12/2017 HGB 12.6 04/12/2017 MCV 103 04/12/2017 MCH 31.9 04/12/2017 MCHC 30.9 04/12/2017 RDW 15.7 04/12/2017 PLT 338 04/12/2017 Lab Results Component Value Date ALT 25 04/12/2017 Lab Results Component Value Date AST 17 04/12/2017 Lab Results Component Value Date CR 0.72 04/12/2017 No results found for: URIC RNATIONAL EDITORIAL PRODUCER documented in this encounter Plan of Treatment Not on file documented as of this encounter Visit Diagnoses Diagnosis Rheumatoid arthritis of multiple sites without rheumatoid factor (H) Rheumatoid arthritis documented in this encounter Additional Health Concerns Infection Onset Date Last Indicated Resolved Time COVID-19 06/23/2020 06/23/2020 07/14/2020 11:4 0 PM INTERNATIONAL EDITORIAL PRODUCER Recovered COVID 07/08/2020 07/08/2020 09/21/2020 1 1:39 PM INTERNATIONAL EDITORIAL PRODUCER Assessment Noted Time PHQ-9 Depression Total Score: 017 1:13 PM CDT documented as of this encounter Care Teams Machine Bookkeeper Relationship Specialty Start Date End Date Bonny Cooley MD [address] [place] [address] PCP - General Family Practice 09/30/15 06/02/21 Bonny Cooley MD [address] [address] PCP - Assigned PCP 10/05/15 10/10/[address] [facility] & [address] [address] PCP - General Internal Medicine 06/03/21 Bettye Gonzales MD Internal Medicine 04/10/15 Antony Chakraborty MD [address] [place] [address] [address] INTERNAL MEDICINE - ENDOCRINOLOGY, DIABETES & METABOLISM 11/13/15 Mateo Cheema MD [address] [place] [address] [address] Internal Medicine 08/06/16 Ermias Colón MD [address] [place] [address] [address] Referring Physician Neurology 09/23/16 Suzanne Fernández, RN Clinic Director Of Financial Planning Primary Care - CC 02/28/18 Bonny Cooley MD [address] [address] Assigned PCP 10/05/15 07/26/20 Pam Hernandez MD [address] [place] [address] [place] [address] Assigned Behavioral Health Provider 05/30/20 08/01/21 Lázaro Horowitz MD [address] [address] Assigned Rheumatology Provider 05/30/20 07/19/20 Jaime Grover MD [address] [place] [address] Assigned Gastroenterology Provider 05/30/20 11/14/21 Toni Sheth MD [address] [address] Assigned Pediatric Specialist Provider 05/30/20 09/07/20 Toni Sheth MD [address] [address] Assigned Surgical Provider 05/30/2006/28 Bertram Elizabeth MD [address] [address] Assigned PCP 07/27/20 04/25/21 Bonny Cooley MD [address] [address] Assigned PCP 04/26/21 08/15/21 Bertram Elizabeth MD [address] [address] Assigned PCP 08/16/21 10/24/21 Alex Johnson MD [address] [place] [address] Assigned Rheumatology Provider 10/18/21 04/15/23 Bonny Cooley MD [address] [address] Assigned PCP 10/25/21 04/02/22 Bertram Elizabeth MD [address] [address] Assigned PCP 04/03/22 07/23/22 Bertram Elizabeth MD [address] [address] Assigned PCP 10/02/22 04/29/23 documented as of this encounter
--- OUTSIDE RECORDS SUMMARY | 2024-02-03 12:52 | XMS_ITS | Encounter Summary ---
Author Organization [facility] Address [address] [place] [address] Care Team Providers Care Crab Backer Name Role Phone Bettye Gonzales MD Unavailable + Bonny Cooley MD Primary Care Provider Antony Chakraborty MD Unavailable Mateo Cheema MD Unavailable [phone] Ermias Colón MD Unavailable Suzanne Fernández RN Unavailable [phone] Bonny Cooley MD Unavailable [phone] Bonny Cooley MD Unavailable [phone] Pam Hernandez MD Unavailable [phone] Lázaro Horowitz MD Unavailable [phone] Jaime Grover MD Unavailable Toni Sheth MD Unavailable [phone] Toni Sheth MD Unavailable [phone] Bertram Elizabeth MD Unavailable Bonny Cooley MD Unavailable [phone] Aminata Youssef MD Primary Care Provider Bertram Elizabeth MD Unavailable Alex Johnson MD Unavailable [phone] Bonny Cooley MD Unavailable [phone] Bertram Elizabeth MD Unavailable [phone] Bertram Elizabeth MD Unavailable [phone] Encounter Details Date Type Department Care Team (Late st Contact Info) Description 12/15/2016 [facility] [place] [facility] Endocrinology [address] [facility] [address] [place] [address] Mateo Cheema MD [address] [place] [address] [address] [place] [address] Social History Tobacco Use Types Packs/Day Years Used Date Smoking Tobacco: Never Smokeless Tobacco: Never Alcohol Use Standard Drinks/Week Comments No 0 (1 standard drink = 0.6 oz pur e alcohol) Sex and Gender Information Value Date Recorded Sex Assigned at Female 08/28/2018 12:23 AM SUGAR CANE PLANTING EQUIPMENT OPERATOR Gender Identity Female 08/28/2018 12:23 AM SUGAR CANE PLANTING EQUIPMENT OPERATOR Sexual Orientation Straight 10/11/2019 2: 51 PM SUGAR CANE PLANTING EQUIPMENT OPERATOR documented as of this encounter Plan of Treatment Not on file documented as of this encounter Visit Diagnoses Not on filedocumented in this encounter Additional Health Concerns Infection Onset Date Last Indicated Resolved Time COVID-19 06/23/2020 06/23/2020 07/14/2020 11:4 0 PM SUGAR CANE PLANTING EQUIPMENT OPERATOR Recovered COVID 07/08/2020 07/08/2020 09/21/2020 1 1:39 PM SUGAR CANE PLANTING EQUIPMENT OPERATOR Assessment Noted Time PHQ-9 Depression Total Score: 6 09/22/19 17 7:27 AM SUGAR CANE PLANTING EQUIPMENT OPERATOR documented as of this encounter Care Teams Crab Backer Relationship Specialty Start Date End Date Bonny Cooley MD [address] [place], [place] [id number] PCP - General Family Practice 09/30/15 06/02/21 Bonny Cooley MD [address] [address] PCP - Assigned PCP 10/05/15 10/10/18 Aminata Youssef MD [facility] - [address] [address] PCP - General Internal Medicine 06/03/21 Bettye Gonzales MD Internal Medicine 04/10/15 Antony Chakraborty MD [address] [address] INTERNAL MEDICINE - ENDOCRINOLOGY, DIABETES & METABOLISM 11/13/15 Mateo Cheema MD [address] [place] [address] [address] Internal Medicine 08/06/16 Ermias Colón MD [address] [address] Referring Physician Neurology 09/23/16 Suzanne Fernández, RN Clinic Sightseeing Guide Primary Care - CC 02/28/18 Bonny Cooley MD [address] [address] Assigned PCP 10/05/15 07/26/20 Pam Hernandez MD [address] [facility] [place] [address] Assigned Behavioral Health Provider 05/30/20 08/01/21 Lázaro Horowitz MD [facility] [address] [place] [address] Assigned Rheumatology Provider 05/30/20 07/19/20 Jaime Grover MD [address] [place] [address] Assigned Gastroenterology Provider 05/30/20 11/14/21 Toni Sheth MD [address] [address] Assigned Pediatric Specialist Provider 05/30/20 09/07/20 Toni Sheth MD [address] [address] Assigned Surgical Provider 05/30/2006/28 Bertram Elizabeth MD [address] [address] Assigned PCP 07/27/20 04/25/21 Bonny Cooley MD [address] [address] Assigned PCP 04/26/21 08/15/21 Bertram Elizabeth MD [address] [address] Assigned PCP 08/16/21 10/24/21 Alex Johnson MD [address] [place] [address] Assigned Rheumatology Provider 10/18/21 04/15/23 Bonny Cooley MD [address] [place] [address] Assigned PCP 10/25/21 04/02/22 Bertram Elizabeth MD [address] [place] [address] Assigned PCP 04/03/22 07/23/22 Bertram Elizabeth MD [facility] [address] [address] Assigned PCP 10/02/22 04/29/23 documented as of this encounter
--- OUTSIDE RECORDS SUMMARY | 2024-02-03 12:52 | XMS_ITS | Encounter Summary ---
Author Organization [facility] Address [address] [place] [address] Care Team Providers Care Sander Hand Name Role Phone Bettye Gonzales MD Unavailable + Bonny Cooley MD Primary Care Provider Antony Chakraborty MD Unavailable Mateo Cheema MD Unavailable Ermias Colón MD Unavailable Suzanne Fernández RN Unavailable [phone] Bonny Cooley MD Unavailable [phone] Bonny Cooley MD Unavailable Pam Hernandez MD Unavailable [phone] Lázaro Horowitz MD Unavailable [phone] Jaime Grover MD Unavailable Toni Sheth MD Unavailable [phone] Toni Sheth MD Unavailable [phone] Bertram Elizabeth MD Unavailable Bonny Cooley MD Unavailable [phone] Aminata Youssef MD Primary Care Provider Bertram Elizabeth MD Unavailable Alex Johnson MD Unavailable [phone] Bonny Cooley MD Unavailable [phone] Bertram Elizabeth MD Unavailable [phone] Bertram Elizabeth MD Unavailable [phone] Encounter Details Date Type Department Care Team (Late st Contact Info) Description 02/28/2018 [facility] Medical Advice [address] [address] Noe Camarena RN Social History Tobacco Use Types Packs/Day Years Used Date Smoking Tobacco: Former Cigarettes 2 3 0 04/23/1976 - 12/17/1977 Smokeless Tobacco: Never Alcohol Use Standard Drinks/Week Comments No 0 (1 standard drink = 0.6 oz pur e alcohol) Sex and Gender Information Value Date Recorded Sex Assigned at Female 08/28/2018 12:23 AM SNACK FOODS MIXER OPERATOR Gender Identity Female 08/28/2018 12:23 AM SNACK FOODS MIXER OPERATOR Sexual Orientation Straight 10/11/2019 2: 51 PM SNACK FOODS MIXER OPERATOR documented as of this encounter Plan of Treatment Not on file documented as of this encounter Visit Diagnoses Not on filedocumented in this encounter Additional Health Concerns Infection Onset Date Last Indicated Resolved Time COVID-19 06/23/2020 06/23/2020 07/14/2020 11:4 0 PM SNACK FOODS MIXER OPERATOR Recovered COVID 07/08/2020 07/08/2020 09/21/2020 1 1:39 PM SNACK FOODS MIXER OPERATOR Assessment Noted Time PHQ-9 Depression Total Score: 12 018 7:15 AM CDT documented as of this encounter Care Teams Sander Hand Relationship Specialty Start Date [place] Date Bonny Cooley MD [address] [place] [address] PCP - General Family Practice 09/30/15 06/02/21 Bonny Cooley MD [address] [address] PCP - Assigned PCP 10/05/15 10/10/18 Aminata Youssef MD [facility] - [address] [address] PCP - General Internal Medicine 06/03/21 Bettye Gonzales MD Internal Medicine 04/10/15 Antony Chakraborty MD [address] [place] [address] [phone] INTERNAL MEDICINE - ENDOCRINOLOGY, DIABETES & METABOLISM 11/13/15 Mateo [facility]ema MD [facility] [address] [address] Internal Medicine 08/06/16 Ermias Colón MD [facility] [address] [address] Referring Physician Neurology 09/23/16 Suzanne Fernández, RN Clinic Ocean Freight Agent Primary Care - CC 02/28/18 Bonny Cooley MD [address] [address] Assigned PCP 10/05/15 07/26/20 Pam Hernandez MD [address] [place] [address] [place] [address] Assigned Behavioral Health Provider 05/30/20 08/01/21 Lázaro Horowitz MD [facility] [address] [place] [address] Assigned Rheumatology Provider 05/30/20 07/19/20 Jaime Grover MD [address] [place] [address] Assigned Gastroenterology Provider 05/30/20 11/14/21 Toni Sheth MD [address] [address] Assigned Pediatric Specialist Provider 05/30/20 09/07/20 Toni Sheth MD [address] [address] Assigned Surgical Provider 05/30/2006/28 Bertram Elizabeth MD [address] [place] [address] Assigned PCP 07/27/20 04/25/21 Bonny Cooley MD [address] [address] Assigned PCP 04/26/21 08/15/21 Bertram Elizabeth MD [address] [address] Assigned PCP 08/16/21 10/24/21 Alex Johnson MD [address] [place] [address] Assigned Rheumatology Provider 10/18/21 04/15/23 Bonny Cooley MD [address] [address] Assigned PCP 10/25/21 04/02/22 Bertram Elizabeth MD [address] [address] Assigned PCP 04/03/22 07/23/22 Bertram Elizabeth MD [address] [address] Assigned PCP 10/02/22 04/29/23 documented as of this encounter
--- OUTSIDE RECORDS SUMMARY | 2024-02-03 12:52 | XMS_ITS | Encounter Summary ---
Author Organization [place] Address [address] [place] [address] Care Team Providers Care Sql Database Administrator Name Role Phone Bettye Gonzales MD Unavailable + Bonny Cooley MD Primary Care Provider [phone] Antony Chakraborty MD Unavailable [phone] Mateo Cheema MD Unavailable Ermias Colón MD Unavailable Suzanne Fernández RN Unavailable [phone] Bonny Cooley MD Unavailable [phone] Bonny Cooley MD Unavailable [phone] Pam Hernandez MD Unavailable [phone] Lázaro Horowitz MD Unavailable [phone] Jaime Grover MD Unavailable Toni Sheth MD Unavailable [phone] Toni Sheth MD Unavailable [phone] Bertram Elizabeth MD Unavailable Bonny Cooley MD Unavailable [phone] Aminata Youssef MD Primary Care Provider Bertram Elizabeth MD Unavailable Alex Johnson MD Unavailable [phone] Bonny Cooley MD Unavailable [phone] Bertram Elizabeth MD Unavailable [phone] Bertram Elizabeth MD Unavailable [phone] Encounter Details Date Type Department Care Team (Late st Contact Info) Description 02/15/2018 MyC Medical Advice [facility] [address] [address] Ermias Colón MD [address] [facility] [place] [address] Social History Tobacco Use Types Packs/Day Years Used Date Smoking Tobacco: Former Cigarettes 2 3 0 04/23/1976 - 12/17/1977 Smokeless Tobacco: Never Alcohol Use Standard Drinks/Week Comments No 0 (1 standard drink = 0.6 oz pur e alcohol) Sex and Gender Information Value Date Recorded Sex Assigned at Female 08/28/2018 12:23 AM COMPUTER TERMINAL OPERATOR Gender Identity Female 08/28/2018 12:23 AM COMPUTER TERMINAL OPERATOR Sexual Orientation Straight 10/11/2019 2: 51 PM COMPUTER TERMINAL OPERATOR documented as of this encounter Miscellaneous Notes * Telephone Encounter - Nolvia Townsend RN - 02/15/2018 2:13 PM CDT Pt notified that this was refilled. MARY KATE Lorenzana, RN [facility] documented in this encounter Plan of Treatment Not on file documented as of this encounter Visit Diagnoses Not on filedocumented in this encounter Additional Health Concerns Infection Onset Date Last Indicated Resolved Time COVID-19 06/23/2020 06/23/2020 07/14/2020 11:4 0 PM COMPUTER TERMINAL OPERATOR Recovered COVID 07/08/2020 07/08/2020 09/21/2020 1 1:39 PM COMPUTER TERMINAL OPERATOR Assessment Noted Time PHQ-9 Depression Total Score: 12 018 7:15 AM CDT documented as of this encounter Care Teams Sql Database Administrator Relationship Specialty Start Date End Date Bonny Cooley MD [address] [place] [address] PCP - General Family Practice 09/30/15 06/02/21 Bonny oColey MD [address] [id number] PCP - Assigned PCP 10/05/15 10/10/[address] [facility] & [address] [address] PCP - General Internal Medicine 06/03/21 Bettye Gonzales MD Internal Medicine 04/10/15 Antony Chakraborty MD [address] [facility] [address] [address] INTERNAL MEDICINE - ENDOCRINOLOGY, DIABETES & METABOLISM 11/13/15 Mtaeo Cheema MD [address] [facility] [address] [id number] Internal Medicine 08/06/16 Ermias Colón MD [address] [facility] [address] [id number] Referring Physician Neurology 09/23/16 Suzanne Fernández, RN Clinic Bicycle Rental Clerk Primary Care - CC 02/28/18 Bonny Cooley MD [address] [address] Assigned PCP 10/05/15 07/26/20 Pam Hernandez MD [address] [place] [address] [place] [address] Assigned Behavioral Health Provider 05/30/20 08/01/21 Lázaro Horowitz MD [address] [address] Assigned Rheumatology Provider 05/30/20 07/19/20 Jaime Grover MD [address] [place] [address] Assigned Gastroenterology Provider 05/30/20 11/14/21 Toni Sheth MD [address] [address] Assigned Pediatric Specialist Provider 05/30/20 09/07/20 Toni Sheth MD [address] 887205 Assigned Surgical Provider 05/30/2006/28 Bertram Elizabeth MD [address] [address] Assigned PCP 07/27/20 04/25/21 Bonny Cooley MD [address] [place] [address] Assigned PCP 04/26/21 08/15/21 Bertram Elizabeth MD [address] [place] [address] Assigned PCP 08/16/21 10/24/21 Alex Johnson MD [address] [place] [address] Assigned Rheumatology Provider 10/18/21 04/15/23 Bonny Cooley MD [address] [place] [address] Assigned PCP 10/25/21 04/02/22 Bertram Elizabeth MD [address] [place] [address] Assigned PCP 04/03/22 07/23/22 Bertram Elizabeth MD [address] [place] [address] Assigned PCP 10/02/22 04/29/23 documented as of this encounter
--- OUTSIDE RECORDS SUMMARY | 2024-02-03 12:52 | XMS_ITS | Encounter Summary ---
Author Organization [place] Address [address] [place] [address] Care Team Providers Care Pricing Director Name Role Phone Bettye Gonzales MD Unavailable + Bonny Cooley MD Primary Care Provider Antony Chakraborty MD Unavailable Mateo Cheema MD Unavailable [phone] Ermias Colón MD Unavailable Suzanne Fernández RN Unavailable [phone] Bonny Cooley MD Unavailable [phone] Bonny Cooley MD Unavailable [phone] Pam Hernandez MD Unavailable [phone] Lázaro Horowitz MD Unavailable [phone] Jaime Grover MD Unavailable Toni Sheth MD Unavailable [phone] Toni Sheth MD Unavailable [phone] Bertram Elizabeth MD Unavailable [phone] Bonny Cooley MD Unavailable [phone] Aminata Youssef MD Primary Care Provider Bertram Elizabeth MD Unavailable Alex Johnson MD Unavailable Bonny Cooley MD Unavailable [phone] Bertram Elizabeth MD Unavailable Bertram Elizabeth MD Unavailable [phone] Reason for Visit * Reason Onset Date Comments Hand Pain 01/03/2017 Edema 01/03/2017 Encounter Details Date Type Department Care Team (Late st Contact Info) Description 01/03/2017 MyC Medical Advice [address] [address] Bonny Cooley MD [address] [address] Hand Pain; Edema Social History Tobacco Use Types Packs/Day Years Used Date Smoking Tobacco: Never Smokeless Tobacco: Never Alcohol Use Standard Drinks/Week Comments No 0 (1 standard drink = 0.6 oz pur e alcohol) Sex and Gender Information Value Date Recorded Sex Assigned at Female 08/28/2018 12:23 AM ELECTRONIC WARFARE LINGUIST Gender Identity Female 08/28/2018 12:23 AM ELECTRONIC WARFARE LINGUIST Sexual Orientation Straight 10/11/2019 2: 51 PM ELECTRONIC WARFARE LINGUIST documented as of this encounter Miscellaneous Notes * Telephone Encounter - Nolvia Townsend RN - 01/04/2017 5:04 PM CDT Message to patient regarding X-ray and follow up. MARY KATE Lorenzana, RN [facility] * Telephone Encounter - Bonny Cooley MD - 01/04/2017 4:10 PM CDT Lets obtain xray of both hands. I have placed the order. Will wait for echo and xray, if both are normal then pt can f/u with rheum. Her previous autoimmune testing for rheumatoid arthritis and SLE were normal. DM * Telephone Encounter - Katlin Germain, [facility] - 01/04/2017 7:[address] Cooley-Please review. Would another office visit be recommended for evaluation? Horticultural Technical Officer also pended rheumatology referral. Thank you! MARY KATE Johnson, RN documented in this encounter Plan of Treatment Not on file documented as of this encounter Results * XR Hand Bilateral G/E 3 Views (01/05/2017 10:38 AM CDT) Anatomical Region Laterality Modality Hand, Wrist Bilateral Computed Radiogr aphy Impressions 01/05/2017 12:10 PM CDT Impression: 1. Joint space loss, greatest in the distal and proximal interphalangeal joints of the second through fifth digits bilaterally with joint space loss in the first metacarpophalangeal joints bilaterally. No joint erosions. Findings are most consistent with osteoarthritis. 2. Diffuse osteopenia. I have personally reviewed the examination and initial interpretation and I agree with the findings. HANS DICKEY MD Narrative 01/05/2017 12:10 PM CDT 3 views bilateral hand radiographs 01/05/2017 10:42 AM History: Unspecified osteoarthritis, unspecified site Additional History from EMR: 71-year-old female with chronic pain in multiple joints. Comparison: None available. Findings: PA, oblique and lateral views of bilateral hands were obtained. No acute osseous abnormality. ??No erosive change. Diffuse osteopenia. Joint space narrowing greatest in the distal and proximal interphalangeal joints of the second through fifth digits bilaterally. Joint space narrowing with osteophyte formation of the first carpometacarpal and metacarpophalangeal joints bilaterally. There appears to be some atrophy of the soft tissues, possibly musculature over the palmar aspect of the left hand with increased fatty density in this area. Procedure Note Hans Dickey MD - 01/05/2017 3 views bilateral hand radiographs 01/05/2017 10:42 AM History: Unspecified osteoarthritis, unspecified site Additional History from EMR: 71-year-old female with chronic pain in multiple joints. Comparison: None available. Findings: PA, oblique and lateral views of bilateral hands were obtained. No acute osseous abnormality. No erosive change. Diffuse osteopenia. Joint space narrowing greatest in the distal and proximal interphalangeal joints of the second through fifth digits bilaterally. Joint space narrowing with osteophyte formation of the first carpometacarpal and metacarpophalangeal joints bilaterally. There appears to be some atrophy of the soft tissues, possibly musculature over the palmar aspect of the left hand with increased fatty density in this area. Impression: 1. Joint space loss, greatest in the distal and proximal interphalangeal joints of the second through fifth digits bilaterally with joint space loss in the first metacarpophalangeal joints bilaterally. No joint erosions. Findings are most consistent with osteoarthritis. 2. Diffuse osteopenia. I have personally reviewed the examination and initial interpretation and I agree with the findings. HANS DICKEY MD Bonny Cooley MD IMG DIAGNOSTIC IMAGI NG ORDERABLES documented in this encounter Visit Diagnoses Diagnosis Arthritis- Primary Arthropathy, unspecified, site unspecified Arthritis Arthropathy, unspecified, site unspecified documented in this encounter Additional Health Concerns Infection Onset Date Last Indicated Resolved Time COVID-19 06/23/2020 06/23/2020 07/14/2020 11:4 0 PM ELECTRONIC WARFARE LINGUIST Recovered COVID 07/08/2020 07/08/2020 09/21/2020 1 1:39 PM ELECTRONIC WARFARE LINGUIST Assessment Noted Time PHQ-9 Depression Total Score: 6 09/22/19 17 7:27 AM ELECTRONIC WARFARE LINGUIST documented as of this encounter Care Teams Pricing Director Relationship Specialty Start Date End Date Bonny Cooley MD [address] [place], [place] [id number] PCP - General Family Practice 09/30/15 06/02/21 Bonny Cooley MD [address] [address] PCP - Assigned PCP 10/05/15 10/10/18 Aminata Youssef MD [facility] - [address] [address] PCP - General Internal Medicine 06/03/21 Bettye Gonzales MD MD Internal Medicine 04/10/15 Antony Chakraborty MD [address] [address] MD INTERNAL MEDICINE - ENDOCRINOLOGY, DIABETES & METABOLISM 11/13/15 Mateo Cheema MD [address] [address] Internal Medicine 08/06/16 Ermias Colón MD [address] [address] Referring Physician Neurology 09/23/16 Suzanne Fernández RN Clinic Spindle Tester Primary Care - CC 02/28/18 Bonny Cooley MD [address] [address] Assigned PCP 10/05/15 07/26/20 Pam Hernandez MD [address] [place] [address] MALLY LYNNE 599241 Assigned Behavioral Health Provider 05/30/20 08/01/21 Lázaro Horowitz MD [facility] [address] [place] [address] Assigned Rheumatology Provider 05/30/20 07/19/20 Jaime Grover MD [address] [place] [address] Assigned Gastroenterology Provider 05/30/20 11/14/21 Toni Sheth MD [address] [address] Assigned Pediatric Specialist Provider 05/30/20 09/07/20 Toni Sheth MD [address] [address] Assigned Surgical Provider 05/30/2006/28 Bertram Elizabeth MD [address] [place] [address] Assigned PCP 07/27/20 04/25/21 Bonny Cooley MD [address] [place] [address] Assigned PCP 04/26/21 08/15/21 Bertram Elizabeth MD [address] [place] [address] Assigned PCP 08/16/21 10/24/21 Alex Johnson MD [address] [place] [address] Assigned Rheumatology Provider 10/18/21 04/15/23 Bonny Cooley MD [address] [address] Assigned PCP 10/25/21 04/02/22 Bertram Elizabeth MD [address] [address] Assigned PCP 04/03/22 07/23/22 Bertram Elizabeth MD [address] [address] Assigned PCP 10/02/22 04/29/23 documented as of this encounter
--- OUTSIDE RECORDS SUMMARY | 2024-02-03 12:52 | XMS_ITS | Encounter Summary ---
Author Organization [place] Address [address] [place] [address] Care Team Providers Care Clinical Services Consultant Name Role Phone Mila Carranza MD Primary Care Provider [phone] Macri Combs MD Primary Care Provider Mila Gil APRN [facility] Primary Care Provid er Bettye Gonzales MD Unavailable + Bettye Gonzales MD Primary Care Prov ider Bonny Cooley MD Primary Care Provider Antony Chakraborty MD Unavailable Mateo Cheema MD Unavailable Ermias Colón MD Unavailable Suzanne Fernández RN Unavailable [phone] Bonny Cooley MD Unavailable [phone] Bonny Cooley MD Unavailable [phone] Pam Hernandez MD Unavailable [phone] Lázaro Horowitz MD Unavailable Jaime Grover MD Unavailable [phone] Toni Sheth MD Unavailable + Toni Sheth MD Unavailable + Bertram Elizabeth MD Unavailable [phone] Bonny Cooley MD Unavailable [phone] Aminata Youssef MD Primary Care Provider Bertram Elizabeth MD Unavailable [phone] Alex Johnson MD Unavailable [phone] Bonny Cooley MD Unavailable [phone] Bertram Elizabeth MD Unavailable [phone] Bertram Elizabeth MD Unavailable +[phone] Encounter Details Date Type Department Care Team (Late st Contact Info) Description 09/02/2011 Telephone [facility] Behavioral Health Intake [address] [place] [id number] Generic, Behavioral Intake, Social History Tobacco Use Types Packs/Day Years Used Date Smoking Tobacco: Never Assessed Smokeless Tobacco: Never Alcohol Use Standard Drinks/Week Comments No 0 (1 standard drink = 0.6 oz pur e alcohol) Sex and Gender Information Value Date Recorded Sex Assigned at Female 08/28/2018 12:23 AM TERMINAL MAKE UP OPERATOR Gender Identity Female 08/28/2018 12:23 AM TERMINAL MAKE UP OPERATOR Sexual Orientation Straight 10/11/2019 2: 51 PM TERMINAL MAKE UP OPERATOR documented as of this encounter Miscellaneous Notes * Telephone Encounter - Joselyn Rodriges - 09/15/2011 4:35 PM CST Left message for client to call back to set up assessment appointment. 2nd message left await call back from client. INAL MAKE UP OPERATOR * Telephone Encounter - Joselyn Rordiges - 09/09/2011 2:26 PM CST Left message for client to call back to set up assessment appointment. INAL MAKE UP OPERATOR * Telephone Encounter - Joselyn Rodriges - 09/03/2011 11:59 AM CST Referral received. INAL MAKE UP OPERATOR * Telephone Encounter - Ac Magana - 09/02/2011 4:09 PM CST Client calling for the 55+ program because of 'depression and anxiety'. Referred by her daughter who is a physician with the [employer]. Meds: wellbutrin 150 mg xr bid and 40 mg of prozac. Doesn't have an op psychiatrist or psychologist. Lives with her daughter. pls call the home number for intake. [email or web address] INAL MAKE UP OPERATOR documented in this encounter Plan of Treatment Not on file documented as of this encounter Visit Diagnoses Not on filedocumented in this encounter Additional Health Concerns Infection Onset Date Last Indicated Resolved Time COVID-19 06/23/2020 06/23/2020 07/14/2020 11:4 0 PM TERMINAL MAKE UP OPERATOR Recovered COVID 07/08/2020 07/08/2020 09/21/2020 1 1:39 PM TERMINAL MAKE UP OPERATOR documented as of this encounter Care Teams Clinical Services Consultant Relationship Specialty Start Date End Date Mila Carranza MD [facility] [address] [place] [address] PCP - General Family Practice 01/21/12 09/13/13 Marci Combs MD [facility] [address] [address] PCP - General Family Practice 09/14/13 11/27/14 Mila Gil APRN CNP [address] [place] [address] PCP - General Nurse Practitioner 11/28/14 04/30/15 Bettye Gonzales MD [address] [place] [address] PCP - General Internal Medicine 05/01/15 09/29/15 Bonny Cooley MD [address] [place] [address] PCP - General Family Practice 09/30/15 06/02/21 Bonny Cooley MD [address] [address] PCP - Assigned PCP 10/05/15 10/10/18 Aminata Youssef MD [address] [address] PCP - General Internal Medicine 06/03/21 Bettye Gonzales MD [address] [place] [address] Internal Medicine 04/10/15 Antony Chakraborty MD [address] [place] [address] [address] INTERNAL MEDICINE - ENDOCRINOLOGY, DIABETES & METABOLISM 11/13/15 Mateo Cheema MD [address] [place] [address] [address] Internal Medicine 08/06/16 Ermias Colón MD [address] [place] [address] [address] Referring Physician Neurology 09/23/16 Suzanne Fernández, RN Clinic Iron Worker Apprentice Primary Care - CC 02/28/18 [place] [address] [place] [address] Assigned PCP 10/05/15 07/26/20 Pam Hernandez MD [address] [place] [address] [place] [address] Assigned Behavioral Health Provider 05/30/20 08/01/21 Lázaro Horowitz MD [address] [address] Assigned Rheumatology Provider 05/30/20 07/19/20 Jaime Grover MD [address] [place] [address] Assigned Gastroenterology Provider 05/30/20 11/14/21 Toni Sheth MD [address] [address] Assigned Pediatric Specialist Provider 05/30/20 09/07/20 Toni Sheth MD [address] [address] Assigned Surgical Provider 05/30/20 04/18/21 [place] [address] [place] [address] Assigned PCP 07/27/20 04/25/21 Bonny Cooley MD 0 [facility] [address] [place] [address] Assigned PCP 04/26/21 08/15/21 Bertram Elizabeth MD [address] [facility] [address] [place] [address] Assigned PCP 08/16/21 10/24/21 Alex Johnson MD [address] [place] [address] Assigned Rheumatology Provider 10/18/21 04/15/23 Bonny Cooley MD 0 [facility] [address] [place] [address] Assigned PCP 10/25/21 04/02/22 Bertram Elizabeth MD [address] [facility] [address] [place] [address] Assigned PCP 04/03/22 07/23/22 Bertram Elizabeth MD [address] [facility] [address] [place] [address] Assigned PCP 10/02/22 04/29/23 documented as of this encounter
[2024-02-03 13:14] LABS: Basophils Absolute Auto 0.02 K/uL (0.00-0.30); Basophils Percent Auto 0.2 % (0.0-3.0); Eosinophils Absolute Auto 0.31 K/uL (0.00-0.50); Eosinophils Percent Auto 3.4 % (0.0-7.0); Hematocrit 43.7 % (33.0-51.0); Hemoglobin* 13.8 gm/dL (12.0-16.0); Immature Granulocytes Abs Auto 0.01 K/uL (0.00-0.30); Immature Granulocytes Pct Auto 0.1 %; Lymphocytes Absolute Auto 2.22 K/uL (0.90-2.90); Lymphocytes Percent Auto 24.5 % (20-44); Mean Corpuscular HGB Conc 32 gm/dL (32-36); Mean Corpuscular Hemoglobin 32 pg (26-34); Mean Corpuscular Volume 101 fL (80-100); Monocytes Percent Auto 5.5 % (0.0-11.0); Neutrophils Percent Auto 66.3 % (42.0-72.0); Platelet Count* 274 K/uL (140-440); RDW Coefficient of Variation % 14.1 % (11.5-15.5); Red Blood Count 4.33 m/uL (4.00-5.20); White Blood Count* 9.06 K/uL (4.50-11.00)
[2024-02-03 13:20] LABS: Slide Review Reflex No
[2024-02-03 13:28] LABS: Albumin* 4.3 g/dL (3.3-5.0)
[2024-02-03 13:31] LABS: Alanine Aminotransferase* 20 U/L (4-35); Aspartate Amino Transferase* 35 U/L (12-35); Creatinine* 0.9 mg/dL (0.5-1.5); Estimated Glomerular Filt Rate 65 ml/min
== END 2024-02-03 12:41 | disposition home or self-care (01) ==
PROVIDERS: Internal Medicine; PCP Internal Medicine
DX: M06.09 Rheumatoid arthritis without rheumatoid factor, multiple sites (principal); Z79.631 Long term (current) use of antimetabolite agent
CPT/HCPCS: 36415; 82040; 82565; 84450; 84460; 85025

== ENCOUNTER 2024-05-30 12:30 | Outpatient (RCR) | payer MEDICARE, OTHER, SELFPAY ==
--- NOTE | 2023-10-31 16:48 | PT.OPEX ---
PT [place] Outpatient Eval PT [facility] Outpatient Eval Start: 10/31/23 08:24 Freq: Status: Active Protocol: Document 10/31/23 08:24 AMS (Rec: 10/31/23 16:44 AMS [id number]) E-signed By Charley Norris PT Physical Therapy Outpatient Evaluation Insurance Information Recert Due Date 01/24/24 Insurance Name Medicare B Insurance Information/Comments Pt arrives 10 min late due to not having handicapped parking pass this visit and increased time needed to walk from parking lot. Eval started 18 min past start time after beginning paperwork. Medical Diagnosis Acute low back pain Treating Diagnosis Low back pain Thoracic back pain Muscle weakness Gait imbalance/difficulty walking Referring MD Aminata Youssef MD Kassie Gordon, a 78-year-old woman, is here today for back spasms that began 1 week ago, with no known injury. She has never had this before. If she hold still, she is fine. She is comfortable in bed. I'm not entirely sure what she means by spasms. She has low back pain that is worse in different spots, so I think she is describing some acute low back pain. Best is flat on my back. No recent falls. She is using Tylenol 1 tablet 3x daily with ibuprofen 600 mg 3x daily, and that works well. Lidocaine patches work well. She has known rheumatoid arthritis on methotrexate (no recent changes). No new differences in defecation and urination. Daughter indicates she is very sedentary only walking 15 feet. I set up physical therapy 06/28, which was stopped due to fatigue and the blood work and echocardiogram was okay (see 06/15/21 task in 05/13/21 task). The pain is bilateral, paraspinal, and not midline. -Aminata Youssef, 10/06/23, confirmed by pt Patient is a 78-year-old female who presents to physical therapy with primary concern of low back pain and physical deconditioning. The back pain started approximately 1 month ago without any known injury. States it has gradually developed. She states it is from a weak core. Anytime she stands or does anything active, it limits her. It does seem to have improved overall . She denies numbness or tingling down her leg, but states she has peripheral neuropathy, so has numb feet up to calf at baseline. Also notes positional vertigo. Pain characteristics: bilateral low back pain, sometimes midline thoracic. Sharp with activity, feels like spasms. Eases with rest . Aggravating factors: standing, walking, sitting funny, brushing her teeth, bending, lifting, dressing Easing factors: Tylenol w/ ibuprofen, Lidocaine, rest, laying flat on her back Prior level of function: Modified independent with use of FWW and 4WW. Daughter manages cleaning, meals, and laundry (physical tasks around home). Pt does IADLs independently (mental tasks around home). She uses a 4WW for longer distances and in the house (preferred gait aid) - has two, one with larger wheels for longer distances. Presents with FWW today. Previous treatments: has gone to PT in the past for age- related frailty, Lidocaine patches, OTC pain medications Current functional limitations : standing, walking, lifting, bending, brushing her teeth. Has handicapped parking pass to limit her walking distance (baseline). At baseline, pt ambulates short household distances. Now, it is even less w/ her back pain. Red flags: denies hx of cancer , recent infection, bowel/ bladder changes Imaging: None PMHx: rheumatoid arthritis, right knee replacement, hypertension, beta mulugeta, hx of PVC, decreased cognition Social history/current exercise: and lives with daughter who is on autism spectrum. She is currently sedentary. She states she used to enjoy tennis, swimming, and running. Goals: Stand for longer period , regain balance, improve strength. Falls: None in last 12 months. Pain Comments 2/10 current 3 or 4/10 at worst 3/10 average Date of Last Physician Visit 10/06/23 Current Work Status Retired Preferred Name Heidi Precautions Treatment Precautions/Contraindications Hypertension, hx of PVC, rheumatoid arthritis, decreased cognition, beta mulugeta, lipedema of LEs, depression, osteoporosis, R knee replacement Therapy Limitations/Systems Review Cognition Objective Other/Pertinent Objective Posture Assessment: Forward head, rounded shoulders. Gait Assessment: Ambulates with FWW this visit, decreased stance time on L LE, short/ shuffling steps with decreased heel strike bilaterally, and flexed forward posture. Significantly decreased nakia. BALANCE Single leg stance: Unable FUNCTIONAL MOBILITY Sit to stand: requires use of one or more hands, poor anterior weight shift/ eccentric control. Prefers utilizing 2 hands on walker and pulling up. LUMBAR ROM Flexion: To mid-campo, increased pain Extension: 0 degrees, unable Right Sidebending: To distal thigh, requires one UE support Left Sidebending: To distal thigh, requires one UE support Right rotation: 50% limited Left rotation: 50% limited REPEATED MOVEMENTS: Deferred d/t poor standing tolerance THORACIC ROM Deferred this visit HIP ROM (R/L) Flexion: 90/90 Extension: Unable to assess d/ t high irritability of symptoms Internal Rotation: 10/10 External Rotation: 35/35 LE MMT Hip flexion: R 3/5 L 3/5. Unable to perform SLR on L. Hip Extension: Able to perform DL bridge w/ difficulty Hip abduction: R 3-/5 L 3-/5 Knee extension: R 4-/5 L 4-/5 Knee Flexion: R 4-/5 L 4-/5 Dorsiflexion/heel walk: R 3+/5 L 3+/5 Plantarflexion/toe walk: Did not assess Abdominal Strength: fair TrA activation in hooklying MYOTOMES/DERMATOMES: Deferred JOINT MOBILITY/PALPATION: Diffuse tenderness to palpation over R and L lateral hip/greater trochanter w/o reproduction of concordant sign. TTP over bilateral lumbar paraspinals. Unable to assess joint mobility due to intolerance to prone position. SPECIAL TESTS -Slump test: - SI/HIP tests Deferred Functional Test Performed & Score MONET: 22/50 = 44% Assessment Assessment/Impression Pt is a 78 -year-old female who presents with concerns of subacute low back pain and moderate severity and irritability as well as general deconditioning and gait imbalance. Signs and symptoms are likely indicating / consistent with low back pain without radiating symptoms, and potential lumbar stenosis, although exam largely limited this visit. Pt arrives 10 min late due to increased time required to ambulate inside from parking lot, as she did not have her handicapped parking pass this visit. On exam, patient also demonstrates notable objective findings including limited lumbar ROM, especially with extension, impaired gait with use of front-wheeled walker ( uses 4WW most of the time), impaired balance, impaired standing tolerance, and significantly decreased lower extremity strength, leading to difficulties with standing, walking more than a minute, lifting, bending, brushing her teeth, dressing, and standing up from a chair. Pt unable to stand up from standard height chair without utilizing upper extremities or put on her jacket without needing to hold onto her walker. Requires sitting breaks every 10-15 seconds when assessing lumbar ROM in standing. Many exam items were deferred today due to patient exhaustion and fatigue from ambulation into the clinic as well as intolerance to prone position. Red flag screening negative. Yellow flag screen positive for depression and sedentary lifestyle. Will plan to perform TUG next visit as appropriate. Patient is appropriate for skilled physical therapy services to address the above deficits. Pt was agreeable with plan of care and goals established. Primary Functional Limitations standing, walking, lifting, bending, brushing her teeth, dressing, standing up from a chair Plan of Care Rehabilitation Potential Good Physical Therapy Goals In 10-12 sessions: 1. Patient will be independent with HEP and self-management of symptoms. 2. Patient will improve TUG score to 13 or less with least restrictive gait aid to demonstrate clinically significant improvements in balance/stability. 3. Patient will improve 5x STS to 15 sec or less (MDC 4 seconds) to demonstrate improvement in LE functional strength. 4. Patient will walk 1 block with use of least restrictive gait aid and no increase in low back pain. 5. Patient will stand 10 minutes with no increase in low back pain. 6. Patient will improve >13 pts or 25% on MONET for meaningful improvement in symptoms. Coordination/Communication With Referral Source Treatment Plan/Direct Interventions Gait Training,Joint Mobilization,Manual Therapy, Neuromuscular Re-ed,Self-Care/ Home Management,Therapeutic Activities,Therapeutic Exercises Frequency/Duration 1-2x/week for 10-12 weeks Patient Will Be Discharged From Therapy Completion of LTG(s), Independent w/HEP, Independently Progressing Evaluation Billing Untimed Code Treatment Minutes 25 Complexity High Certification Information Initial Certification Date 10/31/23 Ending Certification Date 01/24/24 Provider Signature Shows Agreement With POC & Medical Necessity Physician Signature & Date Requested Please Sign/Date Here Physician Comment/Change : Physician NPI Number #
--- NOTE | 2023-12-16 19:09 | OT.OPLE2 ---
OT Outpatient Lymphedema Eval* OT Outpatient Lymphedema Eval* Start: 12/16/23 16:35 Freq: Status: Active Protocol: Document 12/16/23 16:35 LCN (Rec: 12/16/23 17:26 LCN [id number]) E-signed By Ewa Harris, OTR/L, CLT OT Outpatient Evaluation Details Type Type Eval Complexity Low Insurance Information Insurance Information Insurance Information Medicare B Insurance Information Comments [employer] as secondary OT OP Lymphedema Evaluation Current Condition/Medical Diagnosis Referring Provider Claudy Youssef Treatment Diagnosis B LE lymphedema Date Of Onset 11/24/23 Other Precautions Multiple falls in the past 2 years without ability to do floor recovery without assist. Medical Contraindications Depression,HTN,Metal Implants, Osteoporosis Medical History Medical History Depression,Obesity,HTN,Sleep Apnea Medical History Comments Affected by MS since her 30's, numbness/neuropathy in lower 2/3 of shins. Seeing PT for low back pain and balance issues as of . Surgical History Surgical History TKA 2018. Parathyroidectomy 2011, cholecystectomy, C Section. Medications Medications Atenolol, buproprion, D3, methotrexate. 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 Subjective Subjective Heidi has been affected by B LE lymphedema for > 10 years. Has not been wearing compression for the past 4+ years. ( Was fit with velcro wraps at [facility] with complete decongestive treatment > 5 years ago. Has some 20-30 mmHG stockings also , but very hard on her neuropathy. Now with increasing edema changes in her feet, ankles and toes in the past 3 years, getting harder to fit into socks and shoes. Wears lined foam open back clogs. Pt's goal for OT tis have smaller feet again and better compression plan that she can self apply without pain. Living Situation Current Living Situation w daughter Current Living Situation Comments Pt lives locally in multi level home. Daughter lives with her. Patient Difficulties Difficulties With Any Of The Following Walking,Dressing,Reaching Feet & Toes Patient Difficulties Comments neuropathy, poor proprioceptive awareness contributing to frequent falls Impairments Impairments Loss of Mobility,Difficulties With ADLs,Limb Heaviness,Poor Clothing Fit Problem List Problem List Significant Risk For Infection For Lymphedema Related Complications,Does Not Have a HEP,Does Not Have Appropriate Compression Garments For LT Management,Presents With Increased Fall Risk Secondary To Lymphedema,Presents With Impaired Mobility/ROM Exercise History Does Patient Exercise Regularly No Exercise Comments PT exercises for back 3-5 days per week Pain Pain Comments Lower 2/3 of campo to ankles skin is tender to deep pressure during stocking/ stockinette application ROM/Strength ROM/Strength Comments Able to lift legs 15 sec at a time for leg care, measuring in session Previous Treatment Previous Treatment For Swelling/ MLD,Compression Garment,Multi- Lymphedema Layer Compression Bandages, Exercise,Elevation Compression History Does Patient Currently Wear Compression No During Daytime Compression During Daytime Comments Daytime DME needs-- Thigh high Mediven Plus/medium containment circular knit for ease of donning with hand weakness. Does Patient Currently Wear Compression No At Night Compression At Night Comments Night time DME needs-- Would benefit from use of inelastic 20-50 mmHG velcro wraps BK lower leg reduction kit (as needed for hygiene, ease of donning/doffing). Open toe 15- 25 mmHG liner stockings. Reduction toe cap (size small) Plans to use peoplesoft taleo manager OTC compression capris at bedtime. Current Swelling (Location/Pitting/Texture) Pitting Scale: 0 = No pitting 1+ Tissue returns to normal almost immediately 2+ Tissue returns after 15-30 seconds 3+ Tissue returns after 1-1/2 minutes 4+ Tissue returns after 2-3 minutes N/A Tissue no longer pits due to induration Tissue texture: Soft or indurated Clinical Presentation Area Pt is needing update of compression for continued lifelong management of B LE with daytime and night time compression regimen. Pt with ongoing fibrosis/spongy textured edema with rolling edema at lateral thighs, fixed creases at B medial knee and 2+ edema w submalleoloar pocketing and 2+ at dorsal feet to feet with squaring of toes, distended cuticles. (+) Stemmer?s sign. Skin is dry, flaking, cool. No lymphorrhea, open areas or h/o wounds or DVT. Daytime DME needs-- Thigh high Mediven Plus/medium containment circular knit for ease of donning with hand weakness and sensitive skin, skin folds. Night time DME needs-- Would benefit from use of inelastic 20-50 mmHG velcro wraps BK lower leg reduction kit (as needed for hygiene, ease of donning/doffing). Open toe 15- 25 mmHG liner stockings. Reduction toe cap (size small) Plans to use peoplesoft taleo manager OTC compression capris at bedtime. Triggering Event & Start Date of Newer edema at ankles to feet Swelling/Lymphedema over the past 3 years. Skin Changes Hyperkeratosis,Stasis Dermatitis,Toe/Foot Deformities,Fibrosis,Limited Skin Mobility Positive Stemmer's Sign Yes Capillary Refill Brisk Type of Swelling Secondary Staging Staging Stage 2 Circumferential Measurements Lower Extremity Left Lower Extremity Great Toe (in cm) 7.7 MTP (in cm) 20.4 Arch (in cm) 21.0 Distance Between MTP's and Arch 4 Circumference Measurement Calcaneus (in cm) 30.5 Distance Between Arch and Calcaneus 8 Circumference Measurement 10 cm above Calcaneus Measurement 25.4 20 cm above Calcaneus Measurement 36 30 cm above Calcaneus Measurement 42 40 cm above Calcaneus Measurement 44 50 cm above Calcaneus Measurement 51.5 60 cm above Calcaneus Measurement 57 Total Girth in cm 335.5 LE Volume A 136.40 LE Volume B 426.90 LE Volume C 623.38 LE Volume D 757.46 LE Volume E 1212 LE Volume F 1471 LE Volume G 1818.14 LE Volume H 2344.02 Lower Extremity Volume Total in cm 8,789.30 Right Lower Extremity Great Toe (in cm) 8.0 MTP (in cm) 21.5 Arch (in cm) 22 Distance Between MTP's and Arch 4 Circumference Measurement Calcaneus (in cm) 31.5 Distance Between Arch and Calcaneus 8 Circumference Measurement 10 cm above Calcaneus Measurement 25 20 cm above Calcaneus Measurement 33.4 30 cm above Calcaneus Measurement 41 40 cm above Calcaneus Measurement 44 50 cm above Calcaneus Measurement 52 60 cm above Calcaneus Measurement 57 Total Girth in cm 335.4 LE Volume A 150.58 LE Volume B 460.32 LE Volume C 637.88 LE Volume D 683.18 LE Volume E 1105.05 LE Volume F 1437 LE Volume G 1837 LE Volume H 2365 Lower Extremity Volume Total in cm 8,676.01 Assessment Assessment Pt with Impaired integrity of skin & lymphedema lead to increased risk infection & skin breakdown.?Pt c/o decreased mobility of BLE d/t bulk of swelling in legs and impaired fit of appropriate footwear. Legs are heavy, hard to feel where feet are, limited standing tolerance, hard to get shoes, socks on. Pt would benefit from skilled OT to support longer term mgmt of her B LE lymphedema including skin care/ precautions, graduated compression bandaging progressing to final compression garments with appropriate adaptations, MLD and home exercise program Patient Goals Short Term Goals (# of Weeks) 6 Click To Default Short Term Goals Standard Goals Short Term Goals 1. Goal: Patient and or caregiver will understand lymphedema precautions to decrease risk of infection and further lymphedema related complications 2. Goal: Patient will develop a tolerance for wearing multi- layer, short stretch bandages between treatment sessions to facilitate limb decongestion 3. Goal: Patient will experience decreased pitting edema in order to improve tissue health and decrease risk for infection/cellulitis 4.Goal: Patient will perform HEP with minimal assistance in order to improve lymphatic flow and venous return 5. Goal: Patient will perform self MLD protocol with minimal assistance to help reduce swelling and improve ROM and mobility Front End Alignment Specialist Goals (# of Weeks) 12 Click To Default Custodial Goals Standard Goals Custodial Goals 1. Goal: Patient and/or caregiver will be independent with short-stretch compression bandaging for continued volume reduction and prevention of recurrence 2. Goal: Patient will experience increased ROM and mobility in order to improve safety and independence with transfers and mobility 3. Goal: Patient will be independent with donning and doffing of compression garments which will enable regular daily garment wear 4. Goal: Patient will achieve a specific reduction 1 L volume loss per each LE to enable functional improvements such as fitting into standard sized clothing and shoes, return to a prior level of functional mobility, improved balance, and reduced risk of falling. Indicate cm in comments below 5. Goal: Patient and/or caregiver will be independent with HEP and lymphedema management to reduce risk for edema relapse and to reduce risk for infection Treatment Plan Treatment Plan Evaluation,Edema Control,Joint Mobilization,Manual Therapy, Therapeutic Exercise,Self-Care /Home Management,Caregiver Training,Education Expected Frequency 1-2x Week Expected Duration 8-10 Weeks Certification Certification Statement I Certify That: Therapy Services Provided, Therapy Plan Established, Therapy Plan Reviewed Certification Information Clinic ID # [id number] Initial Certification Date 12/16/23 Recertification Due Date 03/15/24 Provider Signature Shows Agreement With POC & Medical Necessity Physician Comment/Change Comment or Changes Physician NPI Number #
--- NOTE | 2024-03-19 17:23 | OT.OPLDN2 ---
OT Outpatient Lymphedema Daily Note OT Outpatient Lymphedema Daily Note* Start: 12/16/23 16:35 Freq: Status: Active Protocol: Document 03/19/24 16:57 LCN (Rec: 03/19/24 17:23 LCN [id number]) E-signed By Ewa Harris, OTR/L, CLT Type of Note Type of Note Type of Note Daily Note,Note to MD,Recert/ Progress Note Visit Number 12 Comments 03/07/24-- Pt made error on appt time;NS 12/19/23-- Pt cancelled, ill. Insurance Information Insurance Information Insurance Information Medicare B Insurance Information Comments [employer] as secondary OT OP Lymphedema Daily/Progress Note Current Condition/Medical Diagnosis Referring Provider Claudy Youssef Treatment Diagnosis B LE lymphedema Date Of Onset 11/24/23 Other Precautions Multiple falls in the past 2 years without ability to do floor recovery without assist. Medical Contraindications Depression,HTN,Metal Implants, Osteoporosis Medical History Medical History Depression,Obesity,HTN,Sleep Apnea Medical History Comments Affected by MS since her 30's, numbness/neuropathy in lower 2/3 of shins. Seeing PT for low back pain and balance issues as of . Surgical History Surgical History TKA 2018. Parathyroidectomy 2011, cholecystectomy, C Section. Medications Medications Atenolol, buproprion, D3, methotrexate. 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 Subjective Subjective Pt feeling much better with new compression layers in place, feet/toes are smaller, toe caps comfortable. For the past 6+ weeks, she has been consistent with wearing 20- 30mmHG compression daily, elevating her legs for two 1 hour periods daily, and is doing her lymph node facilitation/pumping exercises daily. Despite all of these strategies, her BLE, thighs, and hip areas continue with spongy hyperplasia texture from toes to above knees, mid thigh, spongy non pitting edema, hyperkeratotic skin with rough texture, itching and daily heavy flaking skin when doffing liner stockings. She would benefit from using a pneumatic lymphatic pump system for managing thes tissue texture changes of BLE to hip/inguinal areas related to her lymphedema. Heidi has been affected by B LE lymphedema for > 10 years. Has not been wearing compression for the past 4+ years. ( Was fit with velcro wraps at [place] with complete decongestive treatment > 5 years ago. Has some 20-30 mmHG stockings also , but very hard on her neuropathy. Now with increasing edema changes in her feet, ankles and toes in the past 3 years, getting harder to fit into socks and shoes. Living Situation Current Living Situation w daughter Current Living Situation Comments Pt lives locally in multi level home. Daughter lives with her. Patient Difficulties Difficulties With Any Of The Following Walking,Dressing,Reaching Feet & Toes Patient Difficulties Comments neuropathy, poor proprioceptive awareness contributing to frequent falls Impairments Impairments Loss of Mobility,Difficulties With ADLs,Limb Heaviness,Poor Clothing Fit Problem List Problem List Significant Risk For Infection For Lymphedema Related Complications,Does Not Have a HEP,Does Not Have Appropriate Compression Garments For LT Management,Presents With Increased Fall Risk Secondary To Lymphedema,Presents With Impaired Mobility/ROM Exercise History Does Patient Exercise Regularly Yes Exercise Comments PT exercises for back 3-5 days per week OT lymph node facilitation/ pumping daily, 1-2 times per day. Pain Pain Comments Lower 2/3 of campo to ankles skin is tender to deep pressure during stocking/ stockinette application ROM/Strength ROM/Strength Comments Able to lift legs 15 sec at a time for leg care, measuring in session Previous Treatment Previous Treatment For Swelling/ MLD,Compression Garment,Multi- Lymphedema Layer Compression Bandages, Exercise,Elevation Compression History Does Patient Currently Wear Compression No During Daytime Compression During Daytime Comments Daytime DME needs-- per below Does Patient Currently Wear Compression No At Night Compression At Night Comments Night time DME needs-- per below Current Swelling (Location/Pitting/Texture) Pitting Scale: 0 = No pitting 1+ Tissue returns to normal almost immediately 2+ Tissue returns after 15-30 seconds 3+ Tissue returns after 1-1/2 minutes 4+ Tissue returns after 2-3 minutes N/A Tissue no longer pits due to induration Tissue texture: Soft or indurated Clinical Presentation Area DME NEEDS-- 03/19/24- For the past 6+ weeks, she has been consistent with wearing 20-30mmHG compression daily, elevating her legs for two 1 hour periods daily, and is doing her lymph node facilitation/ pumping exercises daily. Despite all of these strategies, her BLE, thighs, and hip areas continue with spongy hyperplasia texture from toes to above knees, mid thigh, spongy non pitting edema, hyperkeratotic skin with rough texture, itching and daily heavy flaking skin when doffing liner stockings. She would benefit from using a pneumatic lymphatic pump system for managing thes tissue texture changes of BLE to hip/inguinal areas related to her lymphedema. inelastic 20-50 mmHG velcro wraps B LE BK: Circaide HD Juxtalite (as needed for hygiene, ease of donning/ doffing). Size Regular Medium, X Full Calf. Black. Velcro foot/ankle 20-50 mmHG velcro piece for B LE: Sigvaris Compreboot Lite, size small regular. Black Circaide reduction series toe caps for B feet, size small. 2 extra pair Liners: Circiade silver comfort liners ( as needed for hygiene). Plans to use ms sql dba OTC compression capris at bedtime. Pt is needing update of compression for continued lifelong management of B LE with daytime and night time compression regimen. Pt with ongoing fibrosis/spongy textured edema with rolling edema at lateral thighs, fixed creases at B medial knee and 2+ edema w submalleolar pocketing and 2+ at dorsal feet to feet with squaring of toes, distended cuticles. (+) Stemmer?s sign. Skin is dry, flaking, cool. No lymphorrhea, open areas or h/o wounds or DVT. Daytime DME needs?Open toe Thigh high Mediven medium containment flat knit for ease of donning with hand weakness and sensitive skin, skin folds. 2 stockings per LE . Reduction toe cap (size small, 3 pair) Night time DME needs-- Would benefit from use of inelastic 20-50 mmHG velcro wraps B LE BK lower leg reduction kit (as needed for hygiene, ease of donning/doffing). Size Regular Standard. 15-25 mmHG liner stockings with 2 extra pair. Plans to use ms sql dba OTC compression capris at bedtime. Triggering Event & Start Date of Newer edema at ankles to feet Swelling/Lymphedema over the past 3 years. Skin Changes Hyperkeratosis,Stasis Dermatitis,Toe/Foot Deformities,Fibrosis,Limited Skin Mobility Positive Stemmer's Sign Yes Capillary Refill Brisk Type of Swelling Secondary Staging Staging Stage 2 Circumferential Measurements Lower Extremity Left Lower Extremity Great Toe (in cm) 6.7 MTP (in cm) 20.0 Arch (in cm) 20.3 Distance Between MTP's and Arch 4 Circumference Measurement Calcaneus (in cm) 29.0 Distance Between Arch and Calcaneus 8 Circumference Measurement 10 cm above Calcaneus Measurement 23 20 cm above Calcaneus Measurement 32 30 cm above Calcaneus Measurement 38 40 cm above Calcaneus Measurement 43.5 50 cm above Calcaneus Measurement 48 60 cm above Calcaneus Measurement 55 Total Girth in cm 315.5 Previous Total Girth in cm 335.5 Difference in Total Girth in cm -20.0 LE Volume A 129.24 LE Volume B 390.84 LE Volume C 540.33 LE Volume D 607 LE Volume E 977 LE Volume F 1323.44 LE Volume G 1666.95 LE Volume H 2113 Lower Extremity Volume Total in cm 7,747.80 Previous Lower Extremity Volume Total in 8,789.3 cm Lower Extremity Volume Total Difference -1,041.50 in cm Right Lower Extremity Great Toe (in cm) 7.2 MTP (in cm) 20.3 Arch (in cm) 20.7 Distance Between MTP's and Arch 4 Circumference Measurement Calcaneus (in cm) 29.4 Distance Between Arch and Calcaneus 8 Circumference Measurement 10 cm above Calcaneus Measurement 22.7 20 cm above Calcaneus Measurement 32 30 cm above Calcaneus Measurement 38 40 cm above Calcaneus Measurement 41.3 50 cm above Calcaneus Measurement 47.5 60 cm above Calcaneus Measurement 55 Total Girth in cm 314.1 Previous Total Girth in cm 335.4 Difference in Total Girth in cm -21.3 LE Volume A 133.77 LE Volume B 403.49 LE Volume C 542.99 LE Volume D 600.99 LE Volume E 977 LE Volume F 1251.77 LE Volume G 1571.30 LE Volume H 2093.88 Lower Extremity Volume Total in cm 7,575.19 Previous Lower Extremity Volume Total in 8,676.01 cm Lower Extremity Volume Total Difference -1,100.82 in cm Treatment Manual Therapy Minutes (minutes) 58 Manual Therapy Comments OTR remeasures and completes MLD sequence (as needed for increased tissue mobility, ROM and decreased lymph girth) with LN facilitation at TDL, terminus, suboccipital to SCM lines, with lymph sweeping distal to proximal x 5-7 strokes each plane, with 2-3 sets at congested areas. Cont LN facilitation at abd with diaphragmatic breath, 4 abd quadrants, beltline, lateral trunk and ING > AX?to support watershed flow. Segmental decongestive MLD at lateral hip,?lateral thigh bundles, middle thigh, TFL to lateral trunk and calf in 3 segments, foot and ankle areas with toe web space facilitation, x 10 reps each area. Therapist applied eucerin lotion to B LE 's. Therapist applied tetragrip size D arch to ankle , reapplied toe wraps.Cont size G from malleolus to distal knee crease. Velcro wraps ankle to calf with velcro extensions. OTR educates pt in lymph pump compression configurations, how to use to help improve skin integrity/manage her spongy fibrotic lymphedema toes to hips/inguinal areas. pt agrees that looking into this further could be helpful. Also verbalizees she is interested in getting an [employer] to help with her bathing, skin care and compression regimen 3x/week. Total Occupational Therapy Minutes 58 Assessment Assessment Likes how the ankle/foot wraps and toe caps work together, ankles still have pockets of spongy edema, but the wraps do fit in her shoes. Toes/ arches with nice contour, ankle/calcaneus line are full and spongy today (waiting for next compression/ankle pieces) , legs with better contour. Lots of skin flaking as her skin integrity and tissue mobility are improving. Pt with Impaired integrity of skin & lymphedema lead to increased risk infection & skin breakdown.?Pt c/o decreased mobility of BLE d/t bulk of swelling in legs and impaired fit of appropriate footwear. Legs are heavy, hard to feel where feet are, limited standing tolerance, hard to get shoes, socks on. Pt would benefit from skilled OT to support longer term mgmt of her B LE lymphedema including skin care/ precautions, graduated compression bandaging progressing to final compression garments with appropriate adaptations, MLD and home exercise program Patient Goals Short Term Goals (# of Weeks) 6 Short Term Goals Goal: Patient and or caregiver will understand lymphedema precautions to decrease risk of infection and further lymphedema related complications Goal: Patient will develop a tolerance for wearing multi-layer, short stretch bandages between treatment sessions to facilitate limb decongestion Goal: Patient will experience decreased pitting edema in order to improve tissue health and decrease risk for infection/cellulitis Goal: Patient will perform HEP with minimal assistance in order to improve lymphatic flow and venous return Goal: Patient will perform self MLD protocol with minimal assistance to help reduce swelling and improve ROM and mobility Short Term Goals Comments STG GOALS MET 03/19/24 Longterm Goals (# of Weeks) 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 Goal: Patient and/or caregiver will be independent with short-stretch compression bandaging for continued volume reduction and prevention of recurrence ( Pt can self don liner sleeves with sock aide, but needing family assistance for the toe cap and velcro wrap portion. 2. Goal: Patient will experience increased ROM and mobility in order to improve safety and independence with transfers and mobility. PROGRESS- Getting easier to lift legs up into car and onto bed surfaces during transfers 3.Goal: Patient will be independent with donning and doffing of compression garments which will enable regular daily garment wear. PROGRESS -- Still needing family assist for the lower wrap straps and toe caps. 4. Goal: Patient will achieve a specific reduction of 1000 cm3 loss from total LE lymph volume measurements to enable functional improvements such as fitting into standard sized clothing and shoes, return to a prior level of functional mobility, improved balance, and reduced risk of falling. PROGRESS-- R LE has lost 110.8 cm3 volume and L LE has lost 1041.5 cm3 since initial OT evaluation on 12/16/23 5. Goal: Patient and/or caregiver will be independent with HEP and lymphedema management to reduce risk for edema relapse and to reduce risk for infection 03/19/24-- GOAL MET, continued for adding pumping 1-2 hr /day to her self mgmt regimen. Treatment Plan Treatment Plan Evaluation,Edema Control,Joint Mobilization,Manual Therapy, Therapeutic Exercise,Self-Care /Home Management,Caregiver Training,Education Expected Frequency 1-2x Week Expected Duration 8-10 Weeks Occupational Therapy Billing Units Treatment Minutes Timed Treatment Minutes 58 Total Treatment Minutes 58 Billing Units Manual Therapy 3 Self Care/Home Management 1 Certification Statement Certification Statement I Certify That: Therapy Services Provided, Therapy Plan Established, Therapy Plan Reviewed Recertification Information Recertification Information Initial Certification Date 12/16/23 Recertification Start Date 03/19/24 Recertification Due Date 06/17/24 Reasons to Continue Skilled Therapy to expend her home program to include pumping and continue with reducing fibrosis with manual fibrosis mgmt techniques and MLD. Rehabilitation Potential Excellent Click To Default 'Per treatment plan' Per treatment plan Continued Plan of Care and Interventions Per treatment plan Provider Signature Required Yes Provider Signature Shows Agreement With POC & Medical Necessity Physician NPI Number Write NPI# Here Physician Comment/Change Comment or Changes Physician Signature & Date Requested Please Sign/Date Here
== END 2024-09-27 23:59 | disposition home or self-care (01) ==
PROVIDERS: PCP Internal Medicine; Visit Provider Internal Medicine
DX: M54.50 Low back pain, unspecified (principal); M54.6 Pain in thoracic spine; M62.81 Muscle weakness (generalized); R26.89 Other abnormalities of gait and mobility; R26.2 Difficulty in walking, not elsewhere classified; R54 Age-related physical debility; I89.0 Lymphedema, not elsewhere classified; Z51.89 Encounter for other specified aftercare
CPT/HCPCS: 97110; 97140; 97163; 97165; 97535

== ENCOUNTER 2024-06-05 20:16 | Outpatient (REF) | payer MEDICARE, OTHER, SELFPAY ==
--- OUTSIDE RECORDS SUMMARY | 2024-06-05 20:27 | XMS_ITS | Encounter Summary ---
Author Organization [facility] Address [address] [place] [address] Care Team Providers Care Dictaphone Technician Name Role Phone Bettye Gonzales MD Unavailable + Bonny Cooley MD Primary Care Provider [phone] Antony Chakraborty MD Unavailable Mateo Cheema MD Unavailable [phone] Ermias Colón MD Unavailable Pam Hernandez MD Unavailable [phone] Jaime Grover MD Unavailable Bonny Cooley MD Unavailable [phone] Aminata Youssef MD Primary Care Provider Bertram Elizabeth MD Unavailable [phone] Alex Johnson MD Unavailable [phone] Bonny Cooley MD Unavailable [phone] Bertram Elizabeth MD Unavailable Bertram Elizabeth MD Unavailable [phone] Reason for Visit * Reason Comments Medication Refill Encounter Details Date Type Department Care Team (Late st Contact Info) Description 05/06/2021 Refill [facility] [address] [facility] [place] [phone] Bonny Cooley MD [address] [facility] [address] [place], [place] [id number] Medication Refill Social History Tobacco Use Types Packs/Day Years Used Date Smoking Tobacco: Former Cigarettes 2 3 0 04/23/1976 - 12/17/1977 Smokeless Tobacco: Never Alcohol Use Standard Drinks/Week Comments No 0 (1 standard drink = 0.6 oz pur e alcohol) PHQ-2 Answer Date Recorded PHQ-2 Score 4 01/31/2020 Comments No Sex and Gender Information Value Date Recorded Sex Assigned at Female 08/28/2018 12:23 AM DRAUGHTSMAN Legal Sex Female 4:46 AM DRAUGHTSMAN Gender Identity Female 08/28/2018 12:23 AM DRAUGHTSMAN Sexual Orientation Straight 10/11/2019 2: 51 PM DRAUGHTSMAN documented as of this encounter Miscellaneous Notes [...] because: PHQ-9 score greater than 4 per [facility] [place] PHQ-9 score: PHQ 01/31/2020 PHQ-9 Total Score 11 Q9: Thoughts of better off /self-harm past 2 weeks Not at all F/U: Thoughts of suicide or self-harm - F/U: Safety concerns - MARY KATE Liu RN [facility] documented in this encounter Plan of Treatment Upcoming Encounters Date Type Department Care Team (Late st Contact Info) Description 10/09/2024 2:30 PM DRAUGHTSMAN Office Visit [place] [id number], [place] [phone] Alex Johnson MD [address] [place] [address] [address] [place], [place] [id number] documented as of this encounter Visit Diagnoses Diagnosis Major depressive disorder, recurrent episode, moderate (H) Major depressive disorder, recurrent episode, moderate documented in this encounter Additional Health Concerns Assessment Noted Time PHQ-9 Depression Total Score: 11 020 2:18 PM CDT documented as of this encounter Care Teams Dictaphone Technician Relationship Specialty Start Date End Date Bonny Cooley MD [address] [place] [address] PCP - General Family Practice 09/30/15 06/02/21 Aminata Youssef MD [facility] [address] [place] [address] PCP - General Internal Medicine 06/03/21 Bettye Gonzales MD Internal Medicine 04/10/15 Antony Chakraborty MD [address] [place] [address] [address] [place] [address] INTERNAL MEDICINE - ENDOCRINOLOGY, DIABETES & METABOLISM 11/13/15 Mateo Cheema MD [address] [address] Internal Medicine 08/06/16 Ermias Colón MD [address] [address] Referring Physician Neurology 09/23/16 Pam Hernandez MD [address] [place] [address] [address] [place] [address] Assigned Behavioral Health Provider 05/30/20 08/01/21 Jaime Grover MD [address] [place] [address] Assigned Gastroenterology Provider 05/30/20 11/14/21 Bonny Cooley MD [address] [address] Assigned PCP 04/26/21 08/15/21 Bertram Elizabeth MD [address] [id number] Assigned PCP 08/16/21 10/24/21 Alex Johnson MD [address] [place] [address] Assigned Rheumatology Provider 10/18/21 04/15/23 Bonny Cooley MD [address] [address] Assigned PCP 10/25/21 04/02/22 Bertram Elizabeth MD [address] [address] Assigned PCP 04/03/22 07/23/22 Bertram Elizabeth MD [address] [address] Assigned PCP 10/02/22 04/29/23 documented as of this encounter
--- OUTSIDE RECORDS SUMMARY | 2024-06-05 20:27 | XMS_ITS | Encounter Summary ---
Author Organization [facility] Address [address] [place] [address] Care Team Providers Care Preschool Teacher'S Assistant Name Role Phone Bettye Gonzales MD Unavailable + Antony Chakraborty MD Unavailable Mateo Cheema MD Unavailable Ermias Colón MD Unavailable Aminata Youssef MD Primary Care Provider Reason for Visit * Reason Comments Medication Refill Encounter Details Date Type Department Care Team (Late st Contact Info) Description 04/05/2024 [facility] [address] [address] Alex Johnson MD [address] [place] [address] Medication Refill Social History Tobacco Use Types Packs/Day Years Used Date Smoking Tobacco: Former Cigarettes 2 3 0 04/23/1976 - 12/17/1977 Smokeless Tobacco: Never Alcohol Use Standard Drinks/Week Comments No 0 (1 standard drink = 0.6 oz pur e alcohol) PHQ-2 Answer Date Recorded PHQ-2 Score 4 01/31/2020 Adolescent Education Answer Date Record ed Getting School Help Needed Not on file 05/24 Comments No Sex and Gender Information Value Date Recorded Sex Assigned at Female 08/28/2018 12:23 AM 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 methotrexate 2.5 MG tablet 28 tablet 4 10/24/2023 -- No Sig: Take 7 tablets (17.5 mg) by mouth every 7 days TAKE 7 TABLETS BY MOUTH EVERY WEEK - Oral Last Office Visit: Virtual Visit 10/09/2021 [facility] Office visit: 10/09/2024 2:30 PM (30 min) Eliezer Arrive by: 2:15 PM RETURN RHEUMATOLOGY [facility] Alex Johnson MD CBC RESULTS: Recent Labs Lab Test 04/11/202034 WBC 7.2 RBC 4.32 HGB 14.0 HCT 43.8 MCV 101* MCH 32.4 MCHC 32.0 RDW 14.2 PLT 276 Creatinine Date Value Ref Range Status 11/23/2019 0.79 0.52 - 1.04 mg/dL Final ] Liver Function Studies - Recent Labs Lab Test 11/23/19 1452 08/22/19 1323 07/24/19 1529 PROTTOTAL -- -- 6.8 ALBUMIN 3.5 -- 3.8 BILITOTAL -- -- 0.3 ALKPHOS -- -- 97 AST 18 < > 21 ALT 31 < > 34 < > = values in this interval not displayed. Routing refill request to provider for review/approval because: DMARD. Rheum labs completed: 11/23/2019 SAÚL: 10/09/2021 FOV: 10/09/2024 documented in this encounter Plan of Treatment Upcoming Encounters Date Type Department Care Team (Late st Contact Info) Description 10/09/2024 2:30 PM BEER STILL RUNNER COMPOUNDER Office Visit [address] [place] [address] Alex Johnson MD [address] [place] [id number] documented as of this encounter Visit Diagnoses Diagnosis Rheumatoid arthritis of multiple sites without rheumatoid factor (H) Rheumatoid arthritis documented in this encounter Additional Health Concerns Assessment Noted Time PHQ-9 Depression Total Score: 11 020 2:18 PM CDT documented as of this encounter Care Teams Preschool Teacher'S Assistant Relationship Specialty Start Date End Date Aminata Youssef MD [facility] [address] [place] [address] PCP - General Internal Medicine 06/03/21 Bettye Gonzales MD Internal Medicine 04/10/15 Antony Chakraborty MD [address] [id number] INTERNAL MEDICINE - ENDOCRINOLOGY, DIABETES & METABOLISM 11/13/15 Mateo Cheema MD [address] [id number] Internal Medicine 08/06/16 Ermias Colón MD [address] [id number] Referring Physician Neurology 09/23/16 documented as of this encounter
--- OUTSIDE RECORDS SUMMARY | 2024-06-05 20:27 | XMS_ITS | Encounter Summary ---
Author Organization [facility] Address [address] [place] [address] Care Team Providers Care Fortune Cookie Maker Name Role Phone Bettye Gonzales MD Unavailable + Bonny Cooley MD Primary Care Provider Antony Chakraborty MD Unavailable Mateo Cheema MD Unavailable [phone] Ermias Colón MD Unavailable Pam Hernandez MD Unavailable Jaime Grover MD Unavailable [phone] Toni Sheth MD Unavailable Bertram Elizabeth MD Unavailable [phone] Bonny Cooley MD Unavailable [phone] Aminata Youssef MD Primary Care Provider Bertram Elizabeth MD Unavailable [phone] Alex Johnson MD Unavailable Bonny Cooley MD Unavailable [phone] Bertram Elizabeth MD Unavailable Bertram Elizabeth MD Unavailable Encounter Details Date Type Department Care Team (Late st Contact Info) Description 02/25/2021 MyC Medical Advice [facility] Rheumatology [address] [phone] Karen Villagran CMA Social History Tobacco Use [...] Sex Assigned at Female 08/28/2018 12:23 AM OPERATING ROOM TECHNICIAN Legal Sex Female 4:46 AM OPERATING ROOM TECHNICIAN Gender Identity Female 08/28/2018 12:23 AM OPERATING ROOM TECHNICIAN Sexual Orientation Straight 10/11/2019 2: 51 PM OPERATING ROOM TECHNICIAN documented as of this encounter Plan of Treatment Upcoming Encounters Date Type Department Care Team (Late st Contact Info) Description 10/09/2024 2:30 PM OPERATING ROOM TECHNICIAN Office Visit [address] [address] Alex Johnson MD [address] [place] [address] documented as of this encounter Visit Diagnoses Not on filedocumented in this encounter Additional Health Concerns Assessment Noted Time PHQ-9 Depression Total Score: 11 020 2:18 PM CDT documented as of this encounter Care Teams Fortune Cookie Maker Relationship Specialty Start Date End Date Bonny Cooley MD [address] [place], [place] [phone] PCP - General Family Practice 09/30/15 06/02/21 Aminata Youssef MD [facility] [address] [place] [address] PCP - General Internal Medicine 06/03/21 Bettye Gonzales MD Internal Medicine 04/10/15 Antony Chakraborty MD [address] [place] [address] INTERNAL MEDICINE - ENDOCRINOLOGY, DIABETES & METABOLISM 11/13/15 Mateo Cheema MD [address] [place] [address] Internal Medicine 08/06/16 Ermias Colón MD [address] [place] [address] Referring Physician Neurology 09/23/16 Pam Hernandez MD [address] [facility] [place] [address] Assigned Behavioral Health Provider 05/30/20 08/01/21 Jaime Grover MD [address] [place] [address] Assigned Gastroenterology Provider 05/30/20 11/14/21 Toni Sheth MD [address] [address] Assigned Surgical Provider 05/30/2006/28 Bertram Elizabeth MD [address] [place] [address] Assigned PCP 07/27/20 04/25/21 Bonny Cooley MD 2270 [facility] 200 [place] [address] Assigned PCP 04/26/21 08/15/21 Bertram Elizabeth MD [address]270 [facility] 200 [place] [address] Assigned PCP 08/16/21 10/24/21 Alex Johnson MD [address] [place] [address] Assigned Rheumatology Provider 10/18/21 04/15/23 Bonny Cooley MD [address] [address] [place] [address] Assigned PCP 10/25/21 04/02/22 Bertram Elizabeth MD [address] [place] [address] Assigned PCP 04/03/22 07/23/22 Bertram Elizabeth MD [address] [place] [address] Assigned PCP 10/02/22 04/29/23 documented as of this encounter
--- OUTSIDE RECORDS SUMMARY | 2024-06-05 20:27 | XMS_ITS | Encounter Summary ---
Author Organization [facility] Address [address] [place] [address] Care Team Providers Care Electrical Integrator Name Role Phone Bettye Gonzales MD Unavailable + Bonny Cooley MD Primary Care Provider Antony Chakraborty MD Unavailable [phone] Mateo Cheema MD Unavailable [phone] Ermias Colón MD Unavailable Pam Hernandez MD Unavailable Jaime Grover MD Unavailable Bonny Cooley MD Unavailable [phone] Aminata Youssef MD Primary Care Provider [phone] Bertram Elizabeth MD Unavailable [phone] Alex Johnson MD Unavailable [phone] Bonny Cooley MD Unavailable [phone] Bertram Elizabeth MD Unavailable Bertram Elizabeth MD Unavailable Reason for Visit * Reason Comments Medication Refill Encounter Details Date Type Department Care Team (Late st Contact Info) Description 05/11/2021 Refill [facility] [place] [phone] Bonny Cooley MD [address] [address] Medication Refill Social History Tobacco Use Types [...] Sex Assigned at Female 08/28/2018 12:23 AM LIME SPREADER Legal Sex Female 4:46 AM LIME SPREADER Gender Identity Female 08/28/2018 12:23 AM LIME SPREADER Sexual Orientation Straight 10/11/2019 2: 51 PM LIME SPREADER documented as of this encounter Miscellaneous Notes * Telephone Encounter - Alicia Ross RN - 05/14/2021 12:58 PM CDT Refusing: patient established care with new provider in [place] MARY KATE Liu RN [facility] documented in this encounter Plan of Treatment Upcoming Encounters Date Type Department Care Team (Late st Contact Info) Description 10/09/2024 2:30 PM LIME SPREADER Office Visit [address] [address] Alex Johnson MD [address] [place] [address] documented as of this encounter Visit Diagnoses Diagnosis Major depressive disorder, recurrent episode, moderate (H) Major depressive disorder, recurrent episode, moderate documented in this encounter Additional Health Concerns Assessment Noted Time PHQ-9 Depression Total Score: 11 020 2:18 PM CDT documented as of this encounter Care Teams Electrical Integrator Relationship Specialty Start Date End Date Bonny Cooley MD [address] [place] [address] PCP - General Family Practice 09/30/15 06/02/21 Aminata Youssef MD [facility] - [address] [address] PCP - General Internal Medicine 06/03/21 Bettye Gonzales MD Internal Medicine 04/10/15 Antony Chakraborty MD [address] [place] [address] MD INTERNAL MEDICINE - ENDOCRINOLOGY, DIABETES & METABOLISM 11/13/15 Mateo Cheema MD [address] [place] [address] Internal Medicine 08/06/16 Ermias Colón MD [address] [place] [address] Referring Physician Neurology 09/23/16 Pam Hernandez MD [address] [place] [address] [place] [address] Assigned Behavioral Health Provider 05/30/20 08/01/21 Jaime Grover MD [address] [place] [address] Assigned Gastroenterology Provider 05/30/20 11/14/21 Bonny Cooley MD 2270 [facility] 200 [place] [address] Assigned PCP 04/26/21 08/15/21 Bertram Elizabeth MD 2270 [facility] 200 [place] [address] Assigned PCP 08/16/21 10/24/21 Alex Johnson MD [address] [place] [address] Assigned Rheumatology Provider 10/18/21 04/15/23 Bonny Cooley MD [address] [address] Assigned PCP 10/25/21 04/02/22 Bertram Elizabeth MD [address] [address] Assigned PCP 04/03/22 07/23/22 Bertram Elizabeth MD [address] [address] Assigned PCP 10/02/22 04/29/23 documented as of this encounter
--- OUTSIDE RECORDS SUMMARY | 2024-06-05 20:27 | XMS_ITS | Clinical Summary ---
Author Organization [facility] Address [place], [place] [address] Care Team Providers Care Glass Calibrator Name Role Phone Aminata Youssef MD Primary Care Provider [phone] Allergies Active Allergy Reactions Criticality Noted Date [...] Hyperlipidemia with target LDL less than 130 Overview (05/31/2022): Diagnosis updated by automated process. Provider to review and confirm. History of parathyroidectomy 05/31/2022 History of cholecystectomy 05/31/2022 History of section 05/31/2022 Frailty syndrome in geriatric patient 05/31/2022 Major depressive disorder, recurrent episode, mo derate 01/31/2020 Anxiety 01/31/2020 Unsteadiness on feet 12/15/2018 Age-related osteoporosis wit hout current pathological fracture 12/15/2018 Overview (05/31/2022): Problem list name updated by automated process. Provider to review Rheumatoid arthritis 12/15/2018 Presence of right artificial knee joint 12/16/19 19 Palpitations 12/15/2018 Essential hypertension 12/15/2018 Gastro-esophageal reflux disease without esophag itis 12/15/2018 Encounter for other specified aftercare 12/16/19 19 Overview (05/31/2022): Discussed advance care planning with patient; information given to patient to review. 01/19/2012 YUE (obstructive sleep apnea) 12/31/2016 Overview (05/31/2022): Home Sleep Apnea test at wt 160lbs [...] right 07/28/2010 ACL tear, left knee 07/28/2010 Overview (07/28/2010): Has elected to treat conservatively for time being Sprain of MCL (medial collateral ligament) of le ft knee 07/28/2010 Resolved Problems Problem Noted Date Diagnosed Date Resolved Date Medial meniscus tear, left knee 07/28/2010 01/20/2012 Overview (07/28/2010): Has elected to treat conservatively for time being, can consider surgery if symptomatic Encounters Date Type Department Care Team Description 04/23/2024 Refill [facility] [address] [place] [address] Wai Hess, Refill Request (Methotrexate) from Last 3 Months Family History Medical History Relation Name Comments [...] T Respiratory Rate 16 09/01/2016 10:42 AM STUDENT OFFICER Oxygen Saturation 96% 05/31/2022 12:55 PM CDT Inhaled Oxygen Concentration - - Weight 89.4 kg (197 lb) 05/31/2022 12:55 PM CDT w/ shoes Height 166.4 cm (5' 5.5) 08/31/2016 9:57 AM STUDENT OFFICER Body Mass Index 32.28 08/31/2016 9:57 AM STUDENT OFFICER Plan of Treatment Health Maintenance Due Date [...] 65+ (1 of 1 - PCV) 2009 RSV vaccine for adults or (1 - 1-dose 75+ series) 2019 COVID-19 vaccine series ( season) 2024 05/30/2022, 01/24/2022, 05/12/2021, Additional history exists Influenza for age 65+ 04/08/2024 Medical Devices Implanted Type Area License Inspector Device Identifier Shelf Expiration Date Model / Serial / Lot Lens Iol Zcb00 17.0 - [id number] Implanted:Qty: 1 on 05/14/2016 by Kiran Chase MD at [facility] Left: Eye [employer] 12/17/2019 ZCB00# / [id number] / Iol Mellette +17.5 Tecnis Zcb00 - [id number] Implanted:Qty: 1 on 09/01/2016 by Kiran Chase MD at [facility] Right: Eye [employer] 05/02/2020 ZCB00# / [id number] / Advance Directives * Full Code (Latest Code Status on File) Date Activated Date Inactivated Comments 09/01/2016 8:43 AM 09/01/2016 1:26 PM Question Answer Comments Code Status Discussion: Not Discussed * Full Code Date Activated Date Inactivated Comments 05/14/2016 9:47 AM 05/14/2016 2:50 PM Question Answer Comments Code Status Discussion: Not Discussed Care Teams Glass Calibrator Relationship Specialty Start Date End Date Aminata Youssef MD [address] [place] [address] PCP - General Internal Medicine 05/27/21
--- OUTSIDE RECORDS SUMMARY | 2024-06-05 20:27 | XMS_ITS | Encounter Summary ---
Author Organization [facility] Address [address] [place] [address] Care Team Providers Care Multigraph Operator Name Role Phone Bettye Gonzales MD Unavailable + Antony Chakraborty MD Unavailable [phone] Mateo Cheema MD Unavailable Ermias Colón MD Unavailable Aminata Youssef MD Primary Care Provider Reason for Visit * Reason Onset Date Comments Call To Schedule Appointment 03/09/2024 Encounter Details Date Type Department Care Team (Late st Contact Info) Description 03/09/2024 Telephone [facility] [address] [address] Alex Johnson MD [address] [place] [address] Call To Schedule Appointment Social History [...] Assigned at Female 08/28/2018 12:23 AM MARKETING ENGINEER Legal Sex Female 4:46 AM MARKETING ENGINEER Gender Identity Female 08/28/2018 12:23 AM MARKETING ENGINEER Sexual Orientation Straight 10/11/2019 2: 51 PM MARKETING ENGINEER documented as of this encounter Miscellaneous Notes * Telephone Encounter - George Martinez - 03/09/2024 10:15 AM CDT Patient confirmed scheduled appointment: Date: October 09, 2024 Time: 2:30 Visit type: Return Rheumatology Provider: Dr. Johnson Location: [place] Testing/imaging: NA Additional notes: LV 10/09/2021 documented in this encounter Plan of Treatment Upcoming Encounters Date Type Department Care Team (Late st Contact Info) Description 10/09/2024 2:30 PM MARKETING ENGINEER Office Visit [address] [phone] Alex Johnson MD [address] [place] [address] documented as of this encounter Visit Diagnoses Not on filedocumented in this encounter Additional Health Concerns Assessment Noted Time PHQ-9 Depression Total Score: 11 020 2:18 PM CDT documented as of this encounter Care Teams Multigraph Operator Relationship Specialty Start Date End Date Aminata Youssef MD [facility] [address] [place] [address] PCP - General Internal Medicine 06/03/21 Bettye Gonzales MD Internal Medicine 04/10/15 Antony Chakraborty MD [address] [address] INTERNAL MEDICINE - ENDOCRINOLOGY, DIABETES & METABOLISM 11/13/15 Mateo Cheema MD [address] [place] [address] Internal Medicine 08/06/16 Ermias Colón MD [address] [place] [address] Referring Physician Neurology 09/23/16 documented as of this encounter
--- OUTSIDE RECORDS SUMMARY | 2024-06-05 20:27 | XMS_ITS | Encounter Summary ---
Author Organization [facility] Address [address] [place] [address] Care Team Providers Care Special Education Supervisor Name Role Phone Bettye Gonzales MD Unavailable + Antony Chakraborty MD Unavailable [phone] Mateo Cheema MD Unavailable Ermias Colón MD Unavailable Aminata Youssef MD Primary Care Provider [phone] Reason for Visit * Reason Comments Medication Refill Encounter Details Date Type Department Care Team (Late st Contact Info) Description 03/08/20[facility] [address] [address] Alex Johnson MD [address] [place] [address] Medication Refill Social History Tobacco Use [...] Sex Assigned at Female 08/28/2018 12:23 AM MATERIAL CONTROL SUPERVISOR Legal Sex Female 4:46 AM MATERIAL CONTROL SUPERVISOR Gender Identity Female 08/28/2018 12:23 AM MATERIAL CONTROL SUPERVISOR Sexual Orientation Straight 10/11/2019 2: 51 PM MATERIAL CONTROL SUPERVISOR documented as of this encounter Miscellaneous Notes * Telephone Encounter - Alena Samayoa RN - 03/14/2024 1:18 PM CDT folic acid (FOLVITE) 1 MG tablet 120 tablet 2 03/08/2024 documented in this encounter Plan of Treatment Upcoming Encounters Date Type Department Care Team (Late st Contact Info) Description 10/09/2024 2:30 PM MATERIAL CONTROL SUPERVISOR Office Visit [address] [phone] Alex Johnson MD [address] [place] [address] documented as of this encounter Visit Diagnoses Diagnosis Rheumatoid arthritis of multiple sites without rheumatoid factor (H) Rheumatoid arthritis documented in this encounter Additional Health Concerns Assessment Noted Time PHQ-9 Depression Total Score: 11 020 2:18 PM CDT documented as of this encounter Care Teams Special Education Supervisor Relationship Specialty Start Date End Date Aminata Youssef MD [facility] [address] [place] [address] PCP - General Internal Medicine 06/03/21 Bettye Gonzales MD Internal Medicine 04/10/15 Antony Chakraborty MD [address] [place] [address] [address] [place], [place] [phone] INTERNAL MEDICINE - ENDOCRINOLOGY, DIABETES & METABOLISM 11/13/15 Mateo Cheema MD [address] [place] [address] Internal Medicine 08/06/16 Ermias Colón MD [address] [place] [address] Referring Physician Neurology 09/23/16 documented as of this encounter
--- OUTSIDE RECORDS SUMMARY | 2024-06-05 20:27 | XMS_ITS | Encounter Summary ---
Author Organization [facility] Address [address] [place] [address]. [place] [address] Care Team Providers Care Poultry Inseminator Name Role Phone Bettye Gonzales MD Unavailable + Antony Chakraborty MD Unavailable Mateo Cheema MD Unavailable Ermias Colón MD Unavailable Aminata Youssef MD Primary Care Provider Encounter Details Date Type Department Care Team (Late st Contact Info) Description 07/21/2023 [facility] [place] [place] Medical Advice [facility] Rhe[facility]ology [facility] [address] [address] Suly Merrill, RN Social History [...] Sex Assigned at Female 08/28/2018 12:23 AM SUPERVISOR CONTACT AND SERVICE CLERKS Legal Sex Female 4:46 AM SUPERVISOR CONTACT AND SERVICE CLERKS Gender Identity Female 08/28/2018 12:23 AM SUPERVISOR CONTACT AND SERVICE CLERKS Sexual Orientation Straight 10/11/2019 2: 51 PM SUPERVISOR CONTACT AND SERVICE CLERKS documented as of this encounter Plan of Treatment Upcoming Encounters Date Type Department Care Team (Late st Contact Info) Description 10/09/2024 2:30 PM SUPERVISOR CONTACT AND SERVICE CLERKS Office Visit [facility] [address] [place] [address] Alex Johnson MD [address] [place] [address] documented as of this encounter Visit Diagnoses Not on filedocumented in this encounter Additional Health Concerns Assessment Noted Time PHQ-9 Depression Total Score: 11 020 2:18 PM CDT documented as of this encounter Care Teams Poultry Inseminator Relationship Specialty Start Date End Date Aminata Youssef MD [facility] [address] [place] [address] PCP - General Internal Medicine 06/03/21 Bettye Gonzales MD Internal Medicine 04/10/15 Antony Chakraborty MD [address] [address] INTERNAL MEDICINE - ENDOCRINOLOGY, DIABETES & METABOLISM 11/13/15 Mateo Cheema MD [address] 4[address] Internal Medicine 08/06/16 Ermias Colón MD [address] [address] Referring Physician Neurology 09/23/16 documented as of this encounter
--- OUTSIDE RECORDS SUMMARY | 2024-06-05 20:27 | XMS_ITS | Encounter Summary ---
Author Organization [facility] Address [address] [place] [address] Care Team Providers Care Head Sugar Reprocess Operator Name Role Phone Salazar Bettye Johnson MD Unavailable + Bonny Cooley MD Primary Care Provider Antony Chakraborty MD Unavailable [phone] Mateo Cheema MD Unavailable [phone] Ermias Colón MD Unavailable Bonny Cooley MD Unavailable [phone] Pam Hernandez MD Unavailable [phone] Lázaro Horowitz MD Unavailable Jaime Grover MD Unavailable [phone] Toni Sheth MD Unavailable [phone] Toni Sheth MD Unavailable [phone] Bertram Elizabeth MD Unavailable [phone] Bonny Cooley MD Unavailable [phone] Aminata Youssef MD Primary Care Provider [phone] Bertram Elizabeth MD Unavailable [phone] Alex Johnson MD Unavailable [phone] Bonny Cooley MD Unavailable [phone] Bertram Elizabeth MD Unavailable [phone] Bertram Elizabeth MD Unavailable [phone] Encounter Details Date Type Department Care Team (Late st Contact Info) Description 07/07/2020 MyC Medical Advice [facility] Gastroenterology Clinic [address] [place] [address] Dulce Connell, RN Social History [...] Sex Assigned at Female 08/28/2018 12:23 AM POWER BRAKE REBUILDER Legal Sex Female 4:46 AM POWER BRAKE REBUILDER Gender Identity Female 08/28/2018 12:23 AM POWER BRAKE REBUILDER Sexual Orientation Straight 10/11/2019 2: 51 PM POWER BRAKE REBUILDER COVID-19 Exposure Response Date Recorded In the last month, have you been in contact with someone who was confirmed or suspected to have Coronavirus / COVID-19? No / Unsure 07/08/2020 8:58 AM POWER BRAKE REBUILDER documented as of this encounter Plan of Treatment Upcoming Encounters Date Type Department Care Team (Late st Contact Info) Description 10/09/2024 2:30 PM POWER BRAKE REBUILDER Office Visit [address] [address] Alex Johnson MD [address] [place] [address] documented as of this encounter Visit Diagnoses Not on filedocumented in this encounter Additional Health Concerns Infection Onset Date Last Indicated Resolved Time COVID-19 06/23/2020 06/23/2020 07/14/2020 11:4 0 PM POWER BRAKE REBUILDER Recovered COVID 07/08/2020 07/08/2020 09/21/2020 1 1:39 PM POWER BRAKE REBUILDER Assessment Noted Time PHQ-9 Depression Total Score: 11 020 2:18 PM CDT documented as of this encounter Care Teams Head Sugar Reprocess Operator Relationship Specialty Start Date End Date Bonny Cooley MD [address] [place] [address] PCP - General Family Practice 09/30/15 06/02/[address] [facility] & [address] [address] PCP - General Internal Medicine 06/03/21 Bettye Gonzales MD Internal Medicine 04/10/15 Antony Chakraborty MD [address] [id number] INTERNAL MEDICINE - ENDOCRINOLOGY, DIABETES & METABOLISM 11/13/15 Mateo Cheema MD [address] [address] Internal Medicine 08/06/16 Ermias Colón MD [address] [phone] Referring Physician Neurology 09/23/16 Bonny Cooley MD [address] [address] Assigned PCP 10/05/15 07/26/20 aPm Hernandez MD [address] [place] [address] [place] [address] Assigned Behavioral Health Provider 05/30/20 08/01/21 Lázaro Horowitz MD [address] [address] Assigned Rheumatology Provider 05/30/20 07/19/20 Jaime Grover MD [address] [place] [address] Assigned Gastroenterology Provider 05/30/20 11/14/21 Toni Sheth MD [address] [address] Assigned Pediatric Specialist Provider 05/30/20 09/07/20 Toni Sheth MD [address] [address] Assigned Surgical Provider 05/30/2006/28 Bertram Elizabeth MD [address] [place] [address] Assigned PCP 07/27/20 04/25/21 Bonny Cooley MD [address] [place] [address] Assigned PCP 04/26/21 08/15/21 Bertram Elizabeth MD 2270 [facility] 200 [place] [address] Assigned PCP 08/16/21 10/24/21 Alex Johnson MD [address] [place] [address], [place] [address] Assigned Rheumatology Provider 10/18/21 04/15/23 Bonny Cooley MD 2270 [facility] 200 [place] [address] Assigned PCP 10/25/21 04/02/22 Bertram Elizabeth MD [address] [place] [address] Assigned PCP 04/03/22 07/23/22 Bertram Elizabeth MD [address] [place] [address] Assigned PCP 10/02/22 04/29/23 documented as of this encounter
--- OUTSIDE RECORDS SUMMARY | 2024-06-05 20:27 | XMS_ITS | Encounter Summary ---
Author Organization [facility] Address [address] [place] [address] Care Team Providers Care Bar And Filler Assembler Name Role Phone Bettye Gonzales MD Unavailable + Bonny Cooley MD Primary Care Provider [phone] Antony Chakraborty MD Unavailable Mateo Cheema MD Unavailable Ermias Colón MD Unavailable Pam Hernandez MD Unavailable [phone] Jaime Grover MD Unavailable Toni Sheth MD Unavailable Bertram Elizabeth MD Unavailable Bonny Cooley MD Unavailable [phone] Aminata Youssef MD Primary Care Provider Bertram Elizabeth MD Unavailable Alex Johnson MD Unavailable Bonny Cooley MD Unavailable [phone] Bertram Elizabeth MD Unavailable Bertram Elizabeth MD Unavailable Encounter Details Date Type Department Care Team (Late st Contact Info) Description 09/23/2020 MyC Medical Advice [facility] [place] [place] [phone] Toni Del Angel MD [address] [place], [place] [phone] Social History Tobacco Use Types Packs/Day Years Used Date Smoking Tobacco: Former Cigarettes 2 3 0 04/23/1976 - 12/17/1977 Smokeless Tobacco: Never Alcohol Use Standard Drinks/Week Comments No 0 (1 standard drink = 0.6 oz pur e alcohol) PHQ-2 Answer Date Recorded PHQ-2 Score 4 01/31/2020 Comments No Sex and Gender Information Value Date Recorded Sex Assigned at Female 08/28/2018 12:23 AM PURCHASING AGENT Legal Sex Female 4:46 AM PURCHASING AGENT Gender Identity Female 08/28/2018 12:23 AM PURCHASING AGENT Sexual Orientation Straight 10/11/2019 2: 51 PM PURCHASING AGENT documented as of this encounter Plan of Treatment Upcoming Encounters Date Type Department Care Team (Late st Contact Info) Description 10/09/2024 2:30 PM PURCHASING AGENT Office Visit [address] [phone] Alex Johnson MD [address] [place] [address] [address] [place], [place] [phone] documented as of this encounter Visit Diagnoses Not on filedocumented in this encounter Additional Health Concerns Assessment Noted Time PHQ-9 Depression Total Score: 11 020 2:18 PM CDT documented as of this encounter Care Teams Bar And Filler Assembler Relationship Specialty Start Date End Date Bonny Cooley MD [address] [place] [address] PCP - General Family Practice 09/30/15 06/02/21 Aminata Youssef MD [facility] - [address] [address] PCP - General Internal Medicine 06/03/21 Bettye Gonzales MD Internal Medicine 04/10/15 Antony Chakraborty MD [address] [address] MD INTERNAL MEDICINE - ENDOCRINOLOGY, DIABETES & METABOLISM 11/13/15 Mateo Cheema MD [address] [address] MD Internal Medicine 08/06/16 Ermias Colón MD [address] [phone] Referring Physician Neurology 09/23/16 Pam Hernandez MD [address] [facility] [place] [address] Assigned Behavioral Health Provider 05/30/20 08/01/21 Jiame Grover MD [address] [place] [address] Assigned Gastroenterology Provider 05/30/20 11/14/21 Toni Sheth MD [address] 545[address] Assigned Surgical Provider 05/30/2006/28 Bertram Elizabeth MD [address] [address] Assigned PCP 07/27/20 04/25/21 Bonny Cooley MD [address] [address] Assigned PCP 04/26/21 08/15/21 Bertram Elizabeth MD [address] [place] [address] Assigned PCP 08/16/21 10/24/21 Alex Johnson MD [address] [place] [address] Assigned Rheumatology Provider 10/18/21 04/15/23 Bonny Cooley MD [address] [place] [address] Assigned PCP 10/25/21 04/02/22 Bertram Elizabeth MD [address] [place] [address] Assigned PCP 04/03/22 07/23/22 Bertram Elizabeth MD [address] [place] [address] Assigned PCP 10/02/22 04/29/23 documented as of this encounter
--- OUTSIDE RECORDS SUMMARY | 2024-06-05 20:27 | XMS_ITS | Encounter Summary ---
Author Organization [facility] Address [address] [place] [address]. [place] [address] Care Team Providers Care Opthalmic Tech Name Role Phone Bettye Gonzales MD Unavailable + Antony Chakraborty MD Unavailable Mateo Cheema MD Unavailable Ermias Colón MD Unavailable Aminata Youssef MD Primary Care Provider [phone] Reason for Visit * Reason Onset Date Comments Refill Request 03/05/2024 Folic acid Encounter Details Date Type Department Care Team (Late st Contact Info) Description 03/05/2024 Refill [facility] [address] [address] Alex Johnson MD [address] [place] [address] Refill Request (Folic acid) Social History Tobacco Use Types Packs/Day Years [...] Sex Assigned at Female 08/28/2018 12:23 AM ROSTER CLERK Legal Sex Female 4:46 AM ROSTER CLERK Gender Identity Female 08/28/2018 12:23 AM ROSTER CLERK Sexual Orientation Straight 10/11/2019 2: 51 PM ROSTER CLERK documented as of this encounter Miscellaneous Notes * Telephone Encounter - Сергей Dawkins - 03/13/2024 9:53 AM CDT Appt / * Telephone Encounter - Erica Rodriguez - 03/09/2024 9:34 AM CDT 03/09- lmtcb x1 * Telephone Encounter - Joselyn Schwartz RN - 03/08/2024 1:53 PM CDT Images from the original note were not included. folic acid (FOLVITE) 1 MG tablet 360 tablet 0 07/13/2023 Last Office Visit : 10-09-2021 Future Office visit: none Vitamin Supplements Protocol Foreej0503/05/2024 08:25 AM Protocol Details Medication indicated for associated diagnosis Vitamin deficiency Recent (12 mo) or future (90 days) visit within the authorizing provider's specialty Gap in refill Scheduling has been notified to contact the pt for appointment. documented in this encounter Plan of Treatment Upcoming Encounters Date Type Department Care Team (Late st Contact Info) Description 10/09/2024 2:30 PM ROSTER CLERK Office Visit [address] [address] Alex Johnson MD [address] [place] [address] documented as of this encounter Visit Diagnoses Diagnosis Rheumatoid arthritis of multiple sites without rheumatoid factor (H) Rheumatoid arthritis documented in this encounter Additional Health Concerns Assessment Noted Time PHQ-9 Depression Total Score: 11 020 2:18 PM CDT documented as of this encounter Care Teams Opthalmic Tech Relationship Specialty Start Date End Date Aminata Youssef MD [facility] & [address] [address] PCP - General Internal Medicine 06/03/21 Bettye Gonzales MD Internal Medicine 04/10/15 Antony Chakraborty MD [address] [place] [address] [id number] INTERNAL MEDICINE - ENDOCRINOLOGY, DIABETES & METABOLISM 11/13/15 Mateo Cheema MD [address] [place] [address] 392435 Internal Medicine 08/06/16 Ermias Colón MD [address] 797875 Referring Physician Neurology 09/23/16 documented as of this encounter
--- OUTSIDE RECORDS SUMMARY | 2024-06-05 20:27 | XMS_ITS | Encounter Summary ---
Author Organization [facility] Address [address] [place] [address] Care Team Providers Care Assistant Professor Of Psychology Name Role Phone Salazar Bettye Johnson MD Unavailable + Bonny Cooley MD Primary Care Provider Antony Chakraborty MD Unavailable Mateo Cheema MD Unavailable [phone] Ermias Colón MD Unavailable Bonny Cooley MD Unavailable [phone] Pam Hernandez MD Unavailable [phone] Lázaro Horowitz MD Unavailable Jaime Grover MD Unavailable Toni Sheth MD Unavailable [phone] Toni Sheth MD Unavailable [phone] Bertram Elizabeth MD Unavailable Bonny Cooley MD Unavailable [phone] Aminata Youssef MD Primary Care Provider Bertram Elizabeth MD Unavailable Alex Johnson MD Unavailable [phone] Bonny Cooley MD Unavailable [phone] Bertram Elizabeth MD Unavailable Bertram Elizabeth MD Unavailable Encounter Details Date Type Department Care Team (Late st Contact Info) Description 07/11/2020 MyC Medical Advice [facility] [address] [place] [phone] Bonny Cooley MD [address] [address] Social History Tobacco Use Types Packs/Day Years Used Date Smoking Tobacco: Former Cigarettes 2 3 0 04/23/1976 - 12/17/1977 Smokeless Tobacco: Never Alcohol Use Standard Drinks/Week Comments No 0 (1 standard drink = 0.6 oz pur e alcohol) PHQ-2 Answer Date Recorded PHQ-2 Score 4 01/31/2020 Comments No Sex and Gender Information Value Date Recorded Sex Assigned at Female 08/28/2018 12:23 AM COMPUTER INSTALLATION ENGINEER Legal Sex Female 4:46 AM COMPUTER INSTALLATION ENGINEER Gender Identity Female 08/28/2018 12:23 AM COMPUTER INSTALLATION ENGINEER Sexual Orientation Straight 10/11/2019 2: 51 PM COMPUTER INSTALLATION ENGINEER COVID-19 Exposure Response Date Recorded In the last month, have you been in contact with someone who was confirmed or suspected to have Coronavirus / COVID-19? No / Unsure 07/08/2020 8:58 AM COMPUTER INSTALLATION ENGINEER documented as of this encounter Plan of Treatment Upcoming Encounters Date Type Department Care Team (Late st Contact Info) Description 10/09/2024 2:30 PM COMPUTER INSTALLATION ENGINEER Office Visit [address] [address] Alex Johnson MD [address] [place] [address] documented as of this encounter Visit Diagnoses Not on filedocumented in this encounter Additional Health Concerns Infection Onset Date Last Indicated Resolved Time COVID-19 06/23/2020 06/23/2020 07/14/2020 11:4 0 PM COMPUTER INSTALLATION ENGINEER Recovered COVID 07/08/2020 07/08/2020 09/21/2020 1 1:39 PM COMPUTER INSTALLATION ENGINEER Assessment Noted Time PHQ-9 Depression Total Score: 11 01/30/ 020 2:18 PM CDT documented as of this encounter Care Teams Assistant Professor Of Psychology Relationship Specialty Start Date End Date Bonny Cooley MD [address] [place] [address] PCP - General Family Practice 09/30/15 06/02/21 Aminata Youssef MD [facility] & [address] [address] PCP - General Internal Medicine 06/03/21 Bettye Gonzales MD MD Internal Medicine 04/10/15 Antony Chakraborty MD [address] [place] [id number] INTERNAL MEDICINE - ENDOCRINOLOGY, DIABETES & METABOLISM 11/13/15 Mateo Cheema MD [address] 9[address] Internal Medicine 08/06/16 Ermias Colón MD [address] [address]38[address] Referring Physician Neurology 09/23/16 Bonny Cooley MD [address] [address] Assigned PCP 10/05/15 07/26/20 Pam Hernandez MD [address] [place] [address] M[place] LYNNE [address] Assigned Behavioral Health Provider 05/30/20 08/01/21 Lázaro Horowitz MD [address] [address] Assigned Rheumatology Provider 05/30/20 07/19/20 Jaime Grover MD [address] [place] [address] Assigned Gastroenterology Provider 05/30/20 11/14/21 Toni Sheth MD [address] [address] Assigned Pediatric Specialist Provider 05/30/20 09/07/20 Toni Sheth MD [address] [address] Assigned Surgical Provider 05/30/2006/28 Bertram Elizabeth MD [address] [address] Assigned PCP 07/27/20 04/25/21 Bonny Cooley MD [address] [address] Assigned PCP 04/26/21 08/15/21 Bertram Elizabeth MD [address] [address] Assigned PCP 08/16/21 10/24/21 Alex Johnson MD [address] [place] [address] Assigned Rheumatology Provider 10/18/21 04/15/23 Bonny Cooley MD [address] [address] Assigned PCP 10/25/21 04/02/22 Bertram Elizabeth MD [address] [address] Assigned PCP 04/03/22 07/23/22 Bertram Elizabeth MD [address] [address] Assigned PCP 10/02/22 04/29/23 documented as of this encounter
--- OUTSIDE RECORDS SUMMARY | 2024-06-05 20:27 | XMS_ITS | Clinical Summary ---
Author Organization [facility] Address [address] [place] [address] Care Team Providers Care Pairer Substandard Name Role Phone Bettye Gonzales MD Unavailable + Antony Chakraborty MD Unavailable Mateo Cheema MD Unavailable Ermias Colón MD Unavailable Aminata Youssef MD Primary Care Provider Allergies Active Allergy Reactions Criticality Noted Date Comments Dust Mites 11/19/2013 Milk (Cow) Other (See Comments) 12/01/2018 foggy and tired Mold 11/19/2013 Pollen Extract 12/01/2018 Other reaction(s): Headache Trees 11/19/2013 Medications Evening [place] Oil CAPS Take 1,300 mg by mouth 2 times daily. Active Glucosamine-Chondr oit-Vit C-Mn (GLUCOSAMINE-CHOND ROITIN) TABS Take 1,500 mg by mouth 2 [...] twice daily (130 mg) Active order for DMEIndications:Idi opathic progressive polyneuropathy Equipment being ordered: Single end Folding cane. 1 each 10/13/19 17 Active order for DMEIndications:Ort hostatic hypotension Equipment being ordered: SUDARSHAN stockings 20-30 mmHG 1 Device 02/25/20 18 Active order for DMEIndications:Lym phedema of both lower extremities Equipment being ordered: knee high or thigh high compression stockings, 15-20, 20-30 or 30-40 mmgh, night time bandaging compression alternative, compression bandaging supplies 4 each 4 05/12/20 18 Active GINKGO BILOBA EXTRACT PO Take 1 [...] times daily Active celecoxib (CELEBREX) 100 MG capsuleIndications :Osteoarthritis, unspecified osteoarthritis type, unspecified site TAKE ONE CAPSULE BY MOUTH EVERY EVENING 90 capsule 04/07/20 20 Active Additional Information Patient not taking.Reported on 10/09/2021 nystatin (MYCOSTATIN) [id number] UNIT/GM external powderIndications: Intertrigo Apply topically 2 times daily as needed 60 g 04/11/20 20 Active triamcinolone (KENALOG) 0.1 % pasteIndications:C anker sores oral Take by mouth 2 times daily For up to a week. 5 g 04/23/20 20 Active FLUoxetine (PROZAC) 20 MG capsuleIndications :Major depressive disorder, recurrent episode, moderate (H) Take 1 capsule (20 mg) by mouth daily 90 capsule 1 11/12/19 21 Active amLODIPine-benazep ril (LOTREL) 10-20 MG capsuleIndications :Essential hypertension with goal blood pressure less than 140/90 TAKE ONE CAPSULE BY MOUTH DAILY 60 capsule 12/04/19 21 Active buPROPion (WELLBUTRIN XL) 300 MG 24 hr tabletIndications: Major depressive disorder, recurrent episode, moderate (H) TAKE ONE TABLET BY MOUTH EVERY MORNING 90 tablet 12/10/19 21 Active leucovorin (WELLCOVORIN) 5 MG tabletIndications: Rheumatoid arthritis of multiple sites without rheumatoid factor (H) Take 1 tablet (5 mg) by mouth every 7 days Take the day after taking Methotrexate every week. For additional refills, please schedule a follow-up appointment at [phone] 12 tablet 01/28/20 21 Active Additional Information Patient not taking.Reported on 10/09/2021 folic acid (FOLVITE) 1 MG tabletIndications: Rheumatoid arthritis of multiple sites without rheumatoid factor (H) TAKE 4 TABLETS(4 MG) BY MOUTH DAILY. FOLLOW-UP WITH DOCTOR WERO. 360 tablet 03/14/20 24 Active methotrexate 2.5 MG tabletIndications: Rheumatoid arthritis of multiple sites without rheumatoid factor (H) TAKE 7 TABLETS BY MOUTH EVERY WEEK 28 tablet 5 04/06/20 24 Active Active Problems Problem Noted Date Diagnosed Date Major depressive disorder, recurrent episode, mo derate 01/31/2020 Anxiety 01/31/2020 Rheumatoid arthritis of mult iple sites without rheumatoid factor 04/12/2017 YUE (obstructive sleep apnea) 12/31/2016 Overview (12/31/2016): Home Sleep Apnea test at wt 160lbs 12/30/2016 AHI 14.3 Idiopathic progressive polyneuropathy 10/05/2016 Dermatitis 05/07/2015 Xerosis of skin 05/07/2015 SK (seborrheic keratosis) 05/07/2015 Lentigines 05/07/2015 History of multiple sclerosis 05/08/2014 Hair thinning 05/08/2014 Fatigue 05/08/2014 Senile osteoporosis 05/08/2014 Osteoporosis 09/25/2013 Overview (05/09/2015): Problem list name updated by automated process. Provider to review Hypercalcemia 01/19/2012 ACL (anterior cruciate ligament) tear 10/24/2009 Gait difficulty 10/24/2009 Hyperparathyroidism Depression, major, recurrent Hypertension goal BP (blood pressure) < 140/90 Hyperlipidemia with target LDL less than 130 Overview (06/09/2015): Diagnosis updated by automated process. Provider to review and confirm. Resolved Problems Problem Noted Date Diagnosed Date Resolved Date NO SHOW 03/06/2013 07/23/2013 Advanced directives, counseling/discussion 01/19/2012 01/23/2024 Overview (01/19/2012): Discussed advance care planning with patient; information given to patient to review. 01/19/2012 Metatarsal fracture 10/08/2008 04/01/20 09 Hyperlipidemia LDL goal <160 07/05/2012 Encounters Date Type Department Care Team Description 04/05/[address] [facility] [address] [phone] Alex Johnson MD Medication Refill 03/09/[address] [facility] Rheumatology [address] [phone] Alex Johnson MD Call To Schedule Appointment 03/08/[address] [facility] Rheumatology [address] [phone] Aelx Johnson MD Medication Refill 03/05/[address] [facility] Rheumatology [address] [phone] Alex Johnson MD Refill Request (Folic acid) from Last 3 Months Immunizations Name Administration Dates Next Due Influenza (H1N1) 08/14/2009 Influenza (High Dose) Trival ent,PF (Fluzone) 05/23/2019,08/07/2018,05/01/2015 Influenza (IIV3) PF 06/25/2008 Influenza Vaccine 65+ [...] Sex Assigned at Female 08/28/2018 12:23 AM CISO Legal Sex Female 4:46 AM CISO Gender Identity Female 08/28/2018 12:23 AM CISO Sexual Orientation Straight 10/11/2019 2: 51 PM CISO Last Filed Vital Signs Vital Sign Reading Time Taken Comments Blood Pressure 135/69 07/08/2020 10:47 AM CISO Pulse 80 07/08/2020 10:47 AM CISO Temperature 37 ??C (98.6 ??F) 04/23/2020 4:29 PM CDT Respiratory Rate 25 07/08/2020 10:05 AM CISO Oxygen Saturation 98% 07/08/2020 10:49 AM CISO Inhaled Oxygen Concentration - - Weight 81.6 kg (180 lb) 05/14/2020 2:51 PM CDT Height 166.4 cm (5' 5.5) 05/14/2020 2:51 PM CDT Body Mass Index 29.5 05/14/2020 2:51 PM CDT Plan of Treatment Upcoming Encounters Date Type Department Care Team (Late st Contact Info) Description 10/09/2024 2:30 PM CISO Office Visit [address] [phone] Alex Johnson MD [address] [place] [address] Health Maintenance Due Date Last Done Comments ANNUAL REVIEW OF HM ORDERS 1944 LUNG CANCER SCREENING 1994 ZOSTER IMMUNIZATION (1 of 2) 07/07/2011 05/12/2011 MEDICARE ANNUAL WELLNESS VISIT 05/01/2016 05/01/2015, 09/25/2013, 05/12/2011 ADVANCE CARE PLANNING 01/18/2017 01/19/2012, 012 LIPID 12/21/2018 12/21/2017, 04/09, 09/25/2013, Additional history exists RSV VACCINE (1 - 1-dose 75+ series) 2019 BMP 07/24/2020 07/24/2019, 08/09, 08/07/2018, Additional history exists PHQ-9 08/01/2020 01/31/2020, 11/08, 09/04/2019, Additional history exists FALL RISK ASSESSMENT 10/17/2020 10/18/2019, 12/28/2016, 05/11/2016, Additional history exists GLUCOSE 07/24/2022 07/24/2019, 08/09, 08/07/2018, Additional history exists COVID-19 Vaccine ( season) 2024 11/24/2023, 05/30/2022, 01/24/2022, Additional history exists INFLUENZA VACCINE (#1) 2024 2, 05/04/2021, 05/16/2020, Additional history exists DTAP/TDAP/TD IMMUNIZATION (2 - Td or Tdap) 12/22/2027 12/21/2017 DEXA 12/11/2031 12/10/2016, 12/2016, 09/13/2013, Additional history exists HEPATITIS C SCREENING Completed 04/12/2017 DEPRESSION ACTION PLAN Completed 8, 12/31/2016, 12/31/2016, Additional history exists Pneumococcal Vaccine: 65+ Years Completed 12/21/2017, 05/12/2011 MAMMO SCREENING Discontinued 08/16/2018, 09/2014, 05/07/2015 COLONOSCOPY Discontinued 07/08/2020, 08/2019, 08/20/2011 [...] Diagnosis Comments COLONOSCOPY Routine 07/08/2020 8:56 AM CISO COMPREHENSIVE METABOLIC PANEL Routine 07/24/2019 3:29 PM CISO Other fatigue MA SCREENING DIGITAL BILATERAL Routine 08/16/2018 11:45 AM CISO Encounter for screening mammogram for breast cancer [...] Maintenance Results * COLONOSCOPY (07/08/2020 8:56 AM CISO) Pathologist [address] [place] [id number] [phone] ? Endoscopy Department Patient Name: Lowell Miller [...] of the exam. Signature of teaching physician [id number] Grover MD Number of Addenda: 0 Note Initiated On: 07/08/2020 8:56 AM Scope In: Scope Out: RADIOLOGY RESULTS 07/08/2020 8:56 AM CISO us Dejessica Cooley MD PROCEDURES Final Result RADIOLOGY RESULTS * (ABNORMAL) Comprehensive metabolic panel (BMP + Alb, Alk Phos, ALT, AST, Total. Bili, TP) (07/24/2019 3:29 PM CISO) Sodium 143 133 - 144 mmol/L 07/25/2019 9:58 AM CISO [facility] Potassium 4.5 3.4 - 5.3 mmol/L 07/25/2019 9:58 AM CISO [facility] Chloride 112(H) 94 - 109 mmol/L 07/25/2019 9:58 AM [facility] Carbon Dioxide 24 20 - 32 mmol/L 07/25/2019 10:31 AM [facility] Anion Gap 7 3 - 14 mmol/L 07/25/2019 10:31 AM [facility] Glucose 92 70 - 99 mg/dL 07/25/2019 10:31 AM [facility] Comment:Non Fasting Urea Nitrogen 19 7 - 30 mg/dL 07/25/2019 10:31 AM [facility] Creatinine 0.80 0.52 - 1.04 mg/dL 07/25/2019 10:31 AM [facility] GFR Estimate 72 >60 mL/min/{1 .73_m2} 07/25/2019 10:31 AM [facility] Comment: Non GFR Calc Starting 07/25/2018, serum creatinine based estimated GFR (eGFR) will be calculated using the Chronic Kidney Disease Epidemiology Collaboration (CKD-EPI) equation. GFR Estimate If Black 84 >60 mL/min/{1 .73_m2} 07/25/2019 10:31 AM [facility] Comment: GFR Calc Starting 07/25/2018, serum creatinine based estimated GFR (eGFR) will be calculated using the Chronic Kidney Disease Epidemiology Collaboration (CKD-EPI) equation. Calcium 9.9 8.5 - 10.1 mg/dL 07/25/2019 10:31 AM [facility] Bilirubin Total 0.3 0.2 - 1.3 mg/dL 07/25/2019 10:36 AM [facility] Albumin 3.8 3.4 - 5.0 g/dL 07/25/2019 10:36 AM [facility] Protein Total 6.8 6.8 - 8.8 g/dL 07/25/2019 10:36 AM [facility] Alkaline Phosphatase 97 40 - 150 U/L 07/25/2019 10:36 AM [facility] ALT 34 0 - 50 U/L 07/25/2019 10:36 AM [facility] AST 21 0 - 45 U/L 07/25/2019 10:36 AM [facility] Blood specimen (specimen) 07/24/2019 3:29 PM CISO 07/24/2019 3:30 PM CISO Bonny Cooley MD LAB - BLOOD ORDERABLES Final R esult [facility] [address] [place] [address] * *MA Screening Digital Bilateral (08/16/2018 11:45 AM CISO) Anatomical Region Laterality Modality Breast Bilateral Mammography Impressions 08/17/2018 10:40 AM CISO IMPRESSION: BI-RADS CATEGORY: 1 - ??NEGATIVE. RECOMMENDED FOLLOW-UP: Annual Mammography. The patient will be notified of the results. I have personally reviewed the examination and initial interpretation and I agree with the findings. YOSEPH PERALTA MD Narrative 08/17/2018 10:40 AM CISO Examination: Bilateral digital screening mammography with computer aided detection. History: No symptoms, routine screening. Comparison: Diagnostic mammogram 05/09/2015. Screening mammogram 05/07/2015. BREAST DENSITY: Scattered fibroglandular densities.. Findings: No significant change. Result [facility] Bonny Cooley MD IMG MAMMOGRAPHY ORDERABLES Fin al Result * (ABNORMAL) Lipid Profile (Chol, Trig, HDL, LDL calc) (12/21/2017 1:42 PM CDT) Cholesterol 203(H) <200 mg/dL 12/22/2017 12:46 PM CDT [facility] Comment:Desirable: <200 mg/d l Triglycerides 101 <150 mg/dL 12/22/2017 12:46 PM CDT [facility] Comment:Non Fasting HDL Cholesterol 54 >49 mg/dL 8 12:46 PM CDT [facility] LDL Cholesterol Calculated 129(H) <100 mg/dL 12/22/2017 12:46 PM CDT [facility] Comment: Above desirable: ??100-129 mg/dl Borderline High: ??130-159 mg/dL High: ? 160-189 mg/dL Very high: ? >189 mg/dl Non HDL Cholesterol 149(H) <130 mg/dL 12/22/2017 12:46 PM CDT [facility] Comment: Above Desirable: ??130-159 mg/dl Borderline high: ??160-189 mg/dl High: ? 190-219 mg/dl Very high: ? >219 mg/dl Blood specimen (specimen) 12/21/2017 1:42 PM CDT 12/21/2017 1:43 PM CDT us Bonny Cooley MD LAB - BLOOD ORDERABLES Final R esult Performing Organization Address City/[facility]/ZIP Co de Phone Number [facility] [address] [place] [address] * Hepatitis C antibody (04/12/2017 2:46 PM CDT) Hepatitis C Antibody Nonreactive NR^Nonre active 04/13/2017 10:43 AM CDT [facility] Comment: Assay performance characteristics have not been established for newborns, infants, and children Blood specimen (specimen) 04/12/2017 2:46 PM CDT 04/12/2017 2:51 PM CDT us Lázaro Horowitz MD LAB - BLOOD ORDERABL ES Final Result [facility] [address] [place] [address] * DX Hip/Pelvis/Spine (12/10/2016 5:01 PM CDT) Anatomical Region Laterality Modality Dexa Bone Mineral Den sity Narrative 12/10/2016 9:14 PM CDT ATTENTION: ??Easy to read DXA/VFA reports (formatted and presented as tables) can be found in EPIC under Chart review > ??Imaging tab > ??DXA [facility] [address] [place] [address] Phone: ?? Fax: FINAL REPORT Patient name: ?? LOWELL MILLER ([id number] ) Patient demographics: 72[age]3 year old White Female of 64.5 in. height and 152.0 lbs. weight Ordering provider: BONNY COOLEY History: ??HIGH CALCIUM, Hyperparathyroid, KIDNEY STONES, LOW BONE DENSITY, LOW VITAMIN D, MS, OVARIES REMOVED (1 OR 2), POSTMENOPAUSAL, reformed tobacco habit Current treatments: PREDNISONE, Vitamin D Scan: ??DXA exam ([id number] ): Mobile Sorcery Exam date: ??12/10/2016 Comparison: ?? 12/10/2016 09/13/2013 [...] to you and your patient. Principal result paraprofessional interpreter: Abbey Morejon MD, CCD Laborer Airport Maintenanceprototype deicer assembler Division of Endocrinology References: 1. ISCD position statements: ??www.iscd.org ??(includes the report of the 2014 ??Position Development Conference) 2. LSC = least significant changes at the [facility] Imaging Center AP spine = ??0.032 [...] following reason: - ??parathyroid dysfunction. Template revised 7.5.2016 Bonny Cooley MD IMG DEXA ORDERABLES Final Resu lt from Last 3 Months or Most Recently Relevant to Health Maintenance Insurance MEDICARE MEDICARE MEDICARE MEDICARE Advance Directives For more information, please contact: [phone] * Full Code (Latest Code Status on File) Date Activated Date Inactivated Comments 08/29/2018 11:12 AM 07/08/2020 8:36 AM Question Answer Comments Code status determined by: Discussion with patie nt/legal decision maker * Full Code Date Activated Date Inactivated Comments 08/28/2018 4:12 PM 08/29/2018 11:12 AM Question Answer Comments Code status determined by: Discussion with patie nt/legal decision maker Care Teams Pairer Substandard Relationship Specialty Start Date End Date Aminata Youssef MD [facility] [address] [place] [address] PCP - General Internal Medicine 06/03/21 Bettye Gonzales MD Internal Medicine 04/10/15 Antony Chakraborty MD [address] [place] [address] INTERNAL MEDICINE - ENDOCRINOLOGY, DIABETES & METABOLISM 11/13/15 Mateo Cheema MD [address] [place] [address] [id number] Internal Medicine 08/06/16 Ermias Colón MD [address] [place] [address] Referring Physician Neurology 09/23/16
--- OUTSIDE RECORDS SUMMARY | 2024-06-05 20:27 | XMS_ITS | Encounter Summary ---
Author Organization [facility] Address [address] [place] [address] Care Team Providers Care Collar Setter Overlock Name Role Phone Salazar Bettye Johnson MD Unavailable + Bonny Cooley MD Primary Care Provider Antony Chakraborty MD Unavailable Mateo Cheema MD Unavailable Ermias Colón MD Unavailable Bonny Cooley MD Unavailable [phone] Pam Hernandez MD Unavailable [phone] Lázaro Horowitz MD Unavailable Jaime Grover MD Unavailable Toni Sheth MD Unavailable [phone] Toni Sheth MD Unavailable [phone] Bertram Elizabeth MD Unavailable Bonny Cooley MD Unavailable [phone] Aminata Youssef MD Primary Care Provider Bertram Elizabeth MD Unavailable Alex Johnson MD Unavailable Bonny Cooley MD Unavailable [phone] Bertram Elizabeth MD Unavailable [phone] Bertram Elizabeth MD Unavailable Encounter Details Date Type Department Care Team (Late st Contact Info) Description 07/04/2020 MyC Medical Advice [facility] [address] [place] [address] Jaime Grover MD [address] [place] [address] Social History Tobacco Use Types Packs/Day Years Used Date Smoking Tobacco: Former Cigarettes 2 3 0 04/23/1976 - 12/17/1977 Smokeless Tobacco: Never Alcohol Use Standard Drinks/Week Comments No 0 (1 standard drink = 0.6 oz pur e alcohol) PHQ-2 Answer Date Recorded PHQ-2 Score 4 01/31/2020 Comments No Sex and Gender Information Value Date Recorded Sex Assigned at Female 08/28/2018 12:23 AM BANKING OFFICER Legal Sex Female 4:46 AM BANKING OFFICER Gender Identity Female 08/28/2018 12:23 AM BANKING OFFICER Sexual Orientation Straight 10/11/2019 2: 51 PM BANKING OFFICER COVID-19 Exposure Response Date Recorded In the last month, have you been in contact with someone who was confirmed or suspected to have Coronavirus / COVID-19? No / Unsure 06/23/2020 10:33 AM BANKING OFFICER documented as of this encounter Plan of Treatment Upcoming Encounters Date Type Department Care Team (Late st Contact Info) Description 10/09/2024 2:30 PM BANKING OFFICER Office Visit [address] [phone] Alex Johnson MD [address] [place] [address] documented as of this encounter Visit Diagnoses Not on filedocumented in this encounter Additional Health Concerns Infection Onset Date Last Indicated Resolved Time COVID-19 06/23/2020 06/23/2020 07/14/2020 11:4 0 PM BANKING OFFICER Recovered COVID 07/08/2020 07/08/2020 09/21/2020 1 1:39 PM BANKING OFFICER Assessment Noted Time PHQ-9 Depression Total Score: 11 01/30/ 020 2:18 PM CDT documented as of this encounter Care Teams Collar Setter Overlock Relationship Specialty Start Date End Date Bonny Cooley MD [address] [place] [address] PCP - General Family Practice 09/30/15 06/02/21 Aminata Youssef MD [facility] [address] [place] [address] PCP - General Internal Medicine 06/03/21 Bettye Gonzales MD MD Internal Medicine 04/10/15 Antony Chakraborty MD [address] [address] INTERNAL MEDICINE - ENDOCRINOLOGY, DIABETES & METABOLISM 11/13/15 Mateo Cheema MD [address] [phone] Internal Medicine 08/06/16 Ermias Colón MD [address] [phone] Referring Physician Neurology 09/23/16 Bonny Cooley MD [address] [address] Assigned PCP 10/05/15 07/26/20 Pam Hernandez MD [address] [place] [address] MALLY LYNNE [address] Assigned Behavioral Health Provider 05/30/20 08/01/21 Lázaro Horowitz MD [address] [address] Assigned Rheumatology Provider 05/30/20 07/19/20 Jaime Grover MD [address] [place] [address] Assigned Gastroenterology Provider 05/30/20 11/14/21 Toni Sheth MD [address] [address] Assigned Pediatric Specialist Provider 05/30/20 09/07/20 Toni Sheth MD [address] [address] Assigned Surgical Provider 05/30/2006/28 Bertram Elizabeth MD [address] [address] Assigned PCP 07/27/20 04/25/21 Bonny Cooley MD [address] [address] Assigned PCP 04/26/21 08/15/21 Bertram Elizabeth MD [address] [address] Assigned PCP 08/16/21 10/24/21 Alex Johnson MD [address] [place] [address] Assigned Rheumatology Provider 10/18/21 04/15/23 Bonny Cooley MD [address] [address] Assigned PCP 10/25/21 04/02/22 Bertram Elizabeth MD [address] [address] Assigned PCP 04/03/22 07/23/22 Bertram Elizabeth MD [address] [address] Assigned PCP 10/02/22 04/29/23 documented as of this encounter
--- OUTSIDE RECORDS SUMMARY | 2024-06-05 20:27 | XMS_ITS | Encounter Summary ---
Author Organization [facility] Address [address] [place] [address] Care Team Providers Care Table Setter Name Role Phone Bettye Gonzales MD Unavailable + Bonny Cooley MD Primary Care Provider Antony Chakraborty MD Unavailable Mateo Cheema MD Unavailable [phone] Ermias Colón MD Unavailable Pam Hernandez MD Unavailable Jaime Grover MD Unavailable Toni Sheth MD Unavailable Bertram Elizabeth MD Unavailable Bonny Cooley MD Unavailable [phone] Aminata Youssef MD Primary Care Provider Bertram Elizabeth MD Unavailable Alex Johnson MD Unavailable Bonny Cooley MD Unavailable [phone] Bertram Elizabeth MD Unavailable [phone] Bertram Elizabeth MD Unavailable Reason for Visit * Reason Comments Medication Refill Encounter Details Date Type Department Care Team (Late st Contact Info) Description 03/04/2021 Refill [facility] [address] [place] [phone] Bonny Cooley MD [address] [address] Medication Refill Social History Tobacco Use Types [...] Sex Assigned at Female 08/28/2018 12:23 AM ORACLE TECHNICAL ARCHITECT Legal Sex Female 4:46 AM ORACLE TECHNICAL ARCHITECT Gender Identity Female 08/28/2018 12:23 AM ORACLE TECHNICAL ARCHITECT Sexual Orientation Straight 10/11/2019 2: 51 PM ORACLE TECHNICAL ARCHITECT documented as of this encounter Miscellaneous Notes * Telephone Encounter - Bonny Cooley MD - 03/09/2021 4:39 PM CDT Per previosu my chart - will establish care at [place]. DM * Telephone Encounter - Katlin Madrid, [facility] - 03/09/2021 10:[address] Cooley-Naomie refill given and patient did not follow up. #30 pended. Team Coordinators-Please contact patient to schedule annual physical. Thank you! MARY KATE Carr, RN [facility] documented in this encounter Plan of Treatment Upcoming Encounters Date Type Department Care Team (Late st Contact Info) Description 10/09/2024 2:30 PM ORACLE TECHNICAL ARCHITECT Office Visit [facility] [address] [place] [address] Alex Johnson MD [address] [place] [address] documented as of this encounter Visit Diagnoses Diagnosis Essential hypertension with goal blood pressure less than 140/90 documented in this encounter Additional Health Concerns Assessment Noted Time PHQ-9 Depression Total Score: 11 020 2:18 PM CDT documented as of this encounter Care Teams Table Setter Relationship Specialty Start Date End Date Bonny Cooley MD [address] [place] [address] PCP - General Family Practice 09/30/15 06/02/21 Aminata Youssef MD [facility] [address] [place] [address] PCP - General Internal Medicine 06/03/21 Bettye Gonzales MD Internal Medicine 04/10/15 Antony Chakraborty MD [address] [address] INTERNAL MEDICINE - ENDOCRINOLOGY, DIABETES & METABOLISM 11/13/15 Mateo Cheema MD [address] [address] Internal Medicine 08/06/16 Ermias Colón MD [address] [address] Referring Physician Neurology 09/23/16 Pam Hernandez MD [address] [place] [address] [place] [address] Assigned Behavioral Health Provider 05/30/20 08/01/21 Jaime Grover MD [address] [place] [address] Assigned Gastroenterology Provider 05/30/20 11/14/21 Toni Sheth MD [address] [place] [address] Assigned Surgical Provider 05/30/2006/28 Bertram Elizabeth MD [address] [address] Assigned PCP 07/27/20 04/25/21 Bonny Cooley MD [address] [address] Assigned PCP 04/26/21 08/15/21 Bertram Elizabeth MD [address] [address] Assigned PCP 08/16/21 10/24/21 Alex Johnson MD [address] [place] [address] Assigned Rheumatology Provider 10/18/21 04/15/23 Bonny Cooley MD [address] [place] [address] Assigned PCP 10/25/21 04/02/22 Bertram Elizabeth MD [address] [place] [address] Assigned PCP 04/03/22 07/23/22 Bertram Elizabeth MD [address] [place] [address] Assigned PCP 10/02/22 04/29/23 documented as of this encounter
--- OUTSIDE RECORDS SUMMARY | 2024-06-05 20:27 | XMS_ITS | Encounter Summary ---
Author Organization [facility] Address [address] [place] [address] Care Team Providers Care Production Hand Name Role Phone Bettye Gonzales MD Unavailable + Antony Chakraborty MD Unavailable [phone] Mateo Cheema MD Unavailable [phone] Ermias Colón MD Unavailable Aminata Youssef MD Primary Care Provider Encounter Details Date Type Department Care Team (Late st Contact Info) Description 12/13/2023 [facility] [address] [address] Rima [facility] Social History Tobacco Use Types Packs/Day Years [...] Sex Assigned at Female 08/28/2018 12:23 AM ADZING AND BORING MACHINE FEEDER Legal Sex Female 4:46 AM ADZING AND BORING MACHINE FEEDER Gender Identity Female 08/28/2018 12:23 AM ADZING AND BORING MACHINE FEEDER Sexual Orientation Straight 10/11/2019 2: 51 PM ADZING AND BORING MACHINE FEEDER documented as of this encounter Plan of Treatment Upcoming Encounters Date Type Department Care Team (Late st Contact Info) Description 10/09/2024 2:30 PM ADZING AND BORING MACHINE FEEDER Office Visit [facility] [address] [place] [phone] Alex Johnson MD [address] [place] [id number] documented as of this encounter Visit Diagnoses Not on filedocumented in this encounter Additional Health Concerns Assessment Noted Time PHQ-9 Depression Total Score: 11 020 2:18 PM CDT documented as of this encounter Care Teams Production Hand Relationship Specialty Start Date End Date Aminata Youssef MD [facility] [address] [place] [address] PCP - General Internal Medicine 06/03/21 Bettye Gonzales MD Internal Medicine 04/10/15 Antony Chakraborty MD [address] [address] INTERNAL MEDICINE - ENDOCRINOLOGY, DIABETES & METABOLISM 11/13/15 Mateo Cheema MD [address] [address] Internal Medicine 08/06/16 Ermias Colón MD [address] [address] Referring Physician Neurology 09/23/16 documented as of this encounter
--- OUTSIDE RECORDS SUMMARY | 2024-06-05 20:27 | XMS_ITS | Referral Summary ---
Author Organization [facility] Address [address] [place] [address] Care Team Providers Care Yarn Mercerizer Operator Name Role Phone Bettye Gonzales MD Unavailable + Antony Chakraborty MD Unavailable [phone] Mateo Cheema MD Unavailable [phone] Ermias Colón MD Unavailable Aminata Youssef MD Primary Care Provider Encounters Date Type Department Care Team Description 04/05/2024 Refill [facility] Rheumatology [address] [address] Alex Johnson MD Medication Refill 03/09/2024 Telephone [facility] Rheumatology [address] [address] Alex Johnson MD Call To Schedule Appointment 03/08/2024 Refill [facility] Rheumatology [address] [address] Alex Johnson MD Medication Refill 03/05/2024 Refill [facility] Rheumatology [address] [address] Alex Johnson MD Refill Request (Folic acid) from Last 3 Months Allergies Active Allergy Reactions Criticality Noted Date Comments Dust Mites 11/19/2013 Milk (Cow) Other (See Comments) 12/01/2018 foggy and tired Mold 11/19/2013 Pollen Extract 12/01/2018 Other reaction(s): Headache Trees 11/19/2013 Medications Evening [place] Oil CAPS Take 1,300 mg by mouth [...] Patient not taking.Reported on 10/09/2021 nystatin (MYCOSTATIN) [id number] UNIT/GM external powderIndications: Intertrigo Apply topically 2 [...] refills, please schedule a follow-up appointment at [phone] 12 tablet 01/28/20 21 Active Additional Information [...] Sex Assigned at Female 08/28/2018 12:23 AM SHODER FILLER Legal Sex Female 4:46 AM SHODER FILLER Gender Identity Female 08/28/2018 12:23 AM SHODER FILLER Sexual Orientation Straight 10/11/2019 2: 51 PM SHODER FILLER Last Filed Vital Signs Vital Sign Reading Time Taken Comments Blood Pressure 135/69 07/08/2020 10:47 AM SHODER FILLER Pulse 80 07/08/2020 10:47 AM SHODER FILLER Temperature 37 ??C (98.6 ??F) 04/23/2020 4:29 PM CDT Respiratory Rate 25 07/08/2020 10:05 AM SHODER FILLER Oxygen Saturation 98% 07/08/2020 10:49 AM SHODER FILLER Inhaled Oxygen Concentration - - Weight 81.6 kg (180 lb) 05/14/2020 2:51 PM CDT Height 166.4 cm (5' 5.5) 05/14/2020 2:51 PM CDT Body Mass Index 29.5 05/14/2020 2:51 PM CDT Plan of Treatment Upcoming Encounters Date Type Department Care Team (Late st Contact Info) Description 10/09/2024 2:30 PM SHODER FILLER Office Visit [address] [address] Alex Johnson MD [address] [place] [address] 338225 Procedures Procedure Name Priority Date/Time Associated Diagnosis Comments COLONOSCOPY Routine 07/08/2020 8:56 AM SHODER FILLER COMPREHENSIVE METABOLIC PANEL Routine 07/24/2019 3:29 PM SHODER FILLER Other fatigue MA SCREENING DIGITAL BILATERAL Routine 08/16/2018 11:45 AM SHODER FILLER Encounter for screening mammogram for breast cancer [...] Maintenance Results * COLONOSCOPY (07/08/2020 8:56 AM SHODER FILLER) [address] [place] [address] [phone] ? Endoscopy Department Patient Name: Lowell Miller [...] Scope Out: RADIOLOGY RESULTS 07/08/2020 8:56 AM SHODER FILLER Bonny Cooley MD PROCEDURES Final Result RADIOLOGY RESULTS * (ABNORMAL) Comprehensive metabolic panel (BMP + Alb, Alk Phos, ALT, AST, Total. Bili, TP) (07/24/2019 3:29 PM SHODER FILLER) Sodium 143 133 - 144 mmol/L 07/25/2019 9:58 AM [facility] Potassium 4.5 3.4 - 5.3 mmol/L 07/25/2019 9:58 AM [facility] Chloride 112(H) 94 - 109 mmol/L 07/25/2019 9:58 AM [facility] Carbon Dioxide 24 20 - 32 mmol/L 07/25/2019 10:31 AM [facility] Anion Gap 7 3 - 14 mmol/L 07/25/2019 10:31 AM [facility] Glucose 92 70 - 99 mg/dL 07/25/2019 10:31 AM [facility] Comment:Non Fasting Urea Nitrogen 19 7 - 30 mg/dL 07/25/2019 10:31 AM [facility] Creatinine 0.80 0.52 - 1.04 mg/dL 07/25/2019 10:31 AM [facility] GFR Estimate 72 >60 mL/min/{1 .73_m2} 07/25/2019 10:31 AM [facility] Comment: Non GFR Calc Starting 07/25/2018, serum creatinine based estimated GFR (eGFR) will be calculated using the Chronic Kidney Disease Epidemiology Collaboration (CKD-EPI) equation. GFR Estimate If Black 84 >60 mL/min/{1 .73_m2} 07/25/2019 10:31 AM SHODER FILLER [facility] Comment: GFR Calc Starting 07/25/2018, serum creatinine based estimated GFR (eGFR) will be calculated using the Chronic Kidney Disease Epidemiology Collaboration (CKD-EPI) equation. Calcium 9.9 8.5 - 10.1 mg/dL 07/25/2019 10:31 AM SHODER FILLER [facility] Bilirubin Total 0.3 0.2 - 1.3 mg/dL 07/25/2019 10:36 AM SHODER FILLER [facility] Albumin 3.8 3.4 - 5.0 g/dL 07/25/2019 10:36 AM [facility] Protein Total 6.8 6.8 - 8.8 g/dL 07/25/2019 10:36 AM SHODER FILLER [facility] Alkaline Phosphatase 97 40 - 150 U/L 07/25/2019 10:36 AM [facility] ALT 34 0 - 50 U/L 07/25/2019 10:36 AM SHODER FILLER [facility] AST 21 0 - 45 U/L 07/25/2019 10:36 AM SHODER FILLER [facility] Blood specimen (specimen) 07/24/2019 3:29 PM SHODER FILLER 07/24/2019 3:30 PM SHODER FILLER us Bonny Cooley MD LAB - BLOOD ORDERABLES Final R esult [facility] [address] [place] [address] * *MA Screening Digital Bilateral (08/16/2018 11:45 AM SHODER FILLER) Anatomical Region Laterality Modality Breast Bilateral Mammography Impressions 08/17/2018 10:40 AM SHODER FILLER IMPRESSION: BI-RADS CATEGORY: 1 - ??NEGATIVE. RECOMMENDED FOLLOW-UP: Annual Mammography. The patient will be notified of the results. I have personally reviewed the examination and initial interpretation and I agree with the findings. YOSEPH PERALTA MD Narrative 08/17/2018 10:40 AM SHODER FILLER Examination: Bilateral digital screening mammography with computer aided detection. History: No symptoms, routine screening. Comparison: Diagnostic mammogram 05/09/2015. Screening mammogram 05/07/2015. BREAST DENSITY: Scattered fibroglandular densities.. Findings: No significant change. Bonny Cooley MD IMG MAMMOGRAPHY ORDERABLES Fin al Result * (ABNORMAL) Lipid Profile (Chol, Trig, HDL, LDL calc) (12/21/2017 1:42 PM CDT) Cholesterol 203(H) <200 mg/dL 12/22/2017 12:46 PM CDT [facility] Comment:Desirable: <200 mg/d l Triglycerides 101 <150 mg/dL 12/22/2017 12:46 PM CDT [facility] Comment:Non Fasting HDL Cholesterol 54 >49 mg/dL 8 12:46 PM CDT [facility] LDL Cholesterol Calculated 129(H) <100 mg/dL 12/22/2017 12:46 PM CDT [facility] Comment: Above desirable: ??100-129 mg/dl Borderline High: ??130-159 mg/dL High: ? 160-189 mg/dL Very high: ? >189 mg/dl Non HDL Cholesterol 149(H) <130 mg/dL 12/22/2017 12:46 PM CDT [facility] Comment: Above Desirable: ??130-159 mg/dl Borderline high: ??160-189 mg/dl High: ? 190-219 mg/dl Very high: ? >219 mg/dl Blood specimen (specimen) 12/21/2017 1:42 PM CDT 12/21/2017 1:43 PM CDT Bonny Cooley MD LAB - BLOOD ORDERABLES Final R esult [facility] [address] [place] [address] * Hepatitis C antibody (04/12/2017 2:46 PM CDT) Hepatitis C Antibody Nonreactive NR^Nonre active 04/13/2017 10:43 AM CDT [facility] Comment: Assay performance characteristics have not been established for newborns, infants, and children Blood specimen (specimen) 04/12/2017 2:46 PM CDT 04/12/2017 2:51 PM CDT Lázaro Horowitz MD LAB - BLOOD ORDERABL ES Final Result [facility] [address] [place] [address] * DX Hip/Pelvis/Spine (12/10/2016 5:01 PM CDT) Anatomical Region Laterality Modality Dexa Bone Mineral Den sity Narrative 12/10/2016 9:14 PM CDT ATTENTION: ??Easy to read DXA/VFA reports (formatted and presented as tables) can be found in EPIC under Chart review > ??Imaging tab > ??DXA [facility] [address] [place] [address] Phone: ?? Fax: FINAL REPORT Patient name: ?? LOWELL MILLER ([id number] ) Patient demographics: 72.3 year old White Female of 64.5 in. height and 152.0 lbs. weight Ordering provider: BONNY COOLEY History: ??HIGH CALCIUM, Hyperparathyroid, KIDNEY STONES, LOW BONE DENSITY, LOW VITAMIN D, MS, OVARIES REMOVED (1 OR 2), POSTMENOPAUSAL, reformed tobacco habit Current treatments: PREDNISONE, Vitamin D Scan: ??DXA exam ([id number] ): Oh My Glasses[employer]Saborstudio Exam date: ??12/10/2016 Comparison: ?? 12/10/2016 09/13/2013 [...] to you and your patient. Principal result press tool maker: Abbey Morejon MD, CCD Threat Analystindustrial arts teacher Division of Endocrinology References: 1. ISCD position statements: ??www.iscd.org ??(includes the report of the 2015 ??Position Development Conference) 2. LSC = least significant changes at the [facility] Imaging Center AP spine [...] following reason: - ??parathyroid dysfunction. Template revised . Bonny Cooley MD IMG DEXA ORDERABLES Final Resu lt from Last 3 Months or Most Recently Relevant to Health Maintenance Insurance MEDICARE MEDICARE MEDICARE MEDICARE Advance Directives For more information, please contact: [phone] * Full Code (Latest Code Status on File) Date Activated Date Inactivated Comments 08/29/2018 11:12 AM 07/08/2020 8:36 AM Question Answer Comments Code status determined by: Discussion with patie nt/legal decision maker * Full Code Date Activated Date Inactivated Comments 08/28/2018 4:12 PM 08/29/2018 11:12 AM Question Answer Comments Code status determined by: Discussion with patie nt/legal decision maker Care Teams Yarn Mercerizer Operator Relationship Specialty Start Date End Date Aminata Youssef MD [facility] & [address] [address] PCP - General Internal Medicine 06/03/21 Bettye Gonzales MD Internal Medicine 04/10/15 Antony Chakraborty MD [address] [address] INTERNAL MEDICINE - ENDOCRINOLOGY, DIABETES & METABOLISM 11/13/15 Mateo Cheema MD [address] [address] Internal Medicine 08/06/16 Ermias Colón MD [address] [address] Referring Physician Neurology 09/23/16
--- OUTSIDE RECORDS SUMMARY | 2024-06-05 20:27 | XMS_ITS | Encounter Summary ---
Author Organization [facility] Address [address] [place] [address] Care Team Providers Care Fashion Intern Name Role Phone Bettye Gonzales MD Unavailable + Bonny Cooley MD Primary Care Provider Antony Chakraborty MD Unavailable Mateo Cheema MD Unavailable Ermias Colón MD Unavailable Pam Hernandez MD Unavailable Jaime Grover MD Unavailable Toni Sheth MD Unavailable Bertram Elizabeth MD Unavailable Bonny Cooley MD Unavailable [phone] Aminata Youssef MD Primary Care Provider Bertram Elizabeth MD Unavailable Alex Johnson MD Unavailable Bonny Cooley MD Unavailable [phone] Bertram Elizabeth MD Unavailable Bertram Elizabeth MD Unavailable Encounter Details Date Type Department Care Team (Late st Contact Info) Description 01/12/2021 MyC Medical Advice [facility] [address] [place] [phone] Bonny Cooley MD [address] [facility] [address] [place], [place] [id number] Social History Tobacco Use Types Packs/Day Years Used Date Smoking Tobacco: Former Cigarettes 2 3 0 04/23/1976 - 12/17/1977 Smokeless Tobacco: Never Alcohol Use Standard Drinks/Week Comments No 0 (1 standard drink = 0.6 oz pur e alcohol) PHQ-2 Answer Date Recorded PHQ-2 Score 4 01/31/2020 Comments No Sex and Gender Information Value Date Recorded Sex Assigned at Female 08/28/2018 12:23 AM DINKEY SKINNER Legal Sex Female 4:46 AM DINKEY SKINNER Gender Identity Female 08/28/2018 12:23 AM DINKEY SKINNER Sexual Orientation Straight 10/11/2019 2: 51 PM DINKEY SKINNER documented as of this encounter Miscellaneous Notes * Telephone Encounter - Henrietta Gilliland RN - 01/13/2021 1:22 PM CDT radhahart communication. Patient needs medical records. Patient given number. Thanks! Henrietta Gilliland RN documented in this encounter Plan of Treatment Upcoming Encounters Date Type Department Care Team (Late st Contact Info) Description 10/09/2024 2:30 PM DINKEY SKINNER Office Visit [address] [address] Alex Johnson MD [address] [place] [address] documented as of this encounter Visit Diagnoses Not on filedocumented in this encounter Additional Health Concerns Assessment Noted Time PHQ-9 Depression Total Score: 11 020 2:18 PM CDT documented as of this encounter Care Teams Fashion Intern Relationship Specialty Start Date End Date Bonny Cooley MD [address] [place] [address] PCP - General Family Practice 09/30/15 06/02/21 Aminata Youssef MD [facility] & [address] [address] PCP - General Internal Medicine 06/03/21 Bettye Gonzales MD Internal Medicine 04/10/15 Antony Chakraborty MD [address] [place] [address] MD INTERNAL MEDICINE - ENDOCRINOLOGY, DIABETES & METABOLISM 11/13/15 Mateo Cheema MD [address] [place] [address] Internal Medicine 08/06/16 Ermias Colón MD [address] [place] [address] Referring Physician Neurology 09/23/16 Pam Hernandez MD [address] [place] [address] [address] [place] [id number] Assigned Behavioral Health Provider 05/30/20 08/01/21 Jaime Grover MD [address] [place] [address] Assigned Gastroenterology Provider 05/30/20 11/14/21 Toni Sheth MD [facility] [address] [facility] [address] [place] [address] Assigned Surgical Provider 05/30/2006/28 Bertram Elizabeth MD [address] [address] Assigned PCP 07/27/20 04/25/21 Bonny Cooley MD [address] [address] Assigned PCP 04/26/21 08/15/21 Bertram Elizabeth MD [address] [address] Assigned PCP 08/16/21 10/24/21 Alex Johnson MD [address] [place] [address] Assigned Rheumatology Provider 10/18/21 04/15/23 Bonny Cooley MD [address] [address] Assigned PCP 10/25/21 04/02/22 Bertram Elizabeth MD [address] [address] Assigned PCP 04/03/22 07/23/22 Bertram Elizabeth MD [address] [address] Assigned PCP 10/02/22 04/29/23 documented as of this encounter
--- OUTSIDE RECORDS SUMMARY | 2024-06-05 20:28 | XMS_ITS | Encounter Summary ---
Author Organization [facility] Address [address] [place] [address] Care Team Providers Care Explosion Welder Name Role Phone Salazar Bettye Johnson MD Unavailable + Bonny Cooley MD Primary Care Provider [phone] Antony Chakraborty MD Unavailable Mateo Cheema MD Unavailable [phone] Ermias Colón MD Unavailable Bonny Cooley MD Unavailable [phone] Pam Hernandez MD Unavailable [phone] Lázaro Horowitz MD Unavailable Jaime Grover MD Unavailable Toni Sheth MD Unavailable [phone] Toni Sheth MD Unavailable [phone] Bertram Elizabeth MD Unavailable Bonny Cooley MD Unavailable [phone] Aminata Youssef MD Primary Care Provider Bertram Elizabeth MD Unavailable Alex Johnson MD Unavailable Bonny Cooley MD Unavailable [phone] Bertram Elizabeth MD Unavailable Bertram Elizabeth MD Unavailable Encounter Details Date Type Department Care Team (Late st Contact Info) Description 02/27/2019 MyC Medical Advice [address] [address] [place] Social History Tobacco Use Types Packs/Day Years Used Date Smoking Tobacco: Former Cigarettes 2 3 0 04/23/1976 - 12/17/1977 Smokeless Tobacco: Never Alcohol Use Standard Drinks/Week Comments No 0 (1 standard drink = 0.6 oz pur e alcohol) PHQ-2 Answer Date Recorded PHQ-2 Score 0 08/15/2018 Comments No Sex and Gender Information Value Date Recorded Sex Assigned at Female 08/28/2018 12:23 AM ASSOCIATE PROFESSOR OF GEOLOGY Legal Sex Female 4:46 AM ASSOCIATE PROFESSOR OF GEOLOGY Gender Identity Female 08/28/2018 12:23 AM ASSOCIATE PROFESSOR OF GEOLOGY Sexual Orientation Straight 10/11/2019 2: 51 PM ASSOCIATE PROFESSOR OF GEOLOGY documented as of this encounter Plan of Treatment Upcoming Encounters Date Type Department Care Team (Late st Contact Info) Description 10/09/2024 2:30 PM ASSOCIATE PROFESSOR OF GEOLOGY Office Visit [address] [address] Alex Johnson MD [address] [place] [address] documented as of this encounter Visit Diagnoses Not on filedocumented in this encounter Additional Health Concerns Infection Onset Date Last Indicated Resolved Time COVID-19 06/23/2020 06/23/2020 07/14/2020 11:4 0 PM ASSOCIATE PROFESSOR OF GEOLOGY Recovered COVID 07/08/2020 07/08/2020 09/21/2020 1 1:39 PM ASSOCIATE PROFESSOR OF GEOLOGY Assessment Noted Time PHQ-9 Depression Total Score: 11 2 019 2:43 PM CDT documented as of this encounter Care Teams Explosion Welder Relationship Specialty Start Date End Date Bonny Cooley MD [address] [place] [address] PCP - General Family Practice 09/30/15 06/02/21 Aminata Youssef MD [facility] & [address] [address] PCP - General Internal Medicine 06/03/21 Bettye Gonzales MD Internal Medicine 04/10/15 Antony Chakraborty MD [address] [address] INTERNAL MEDICINE - ENDOCRINOLOGY, DIABETES & METABOLISM 11/13/15 Mateo Cheema MD [address] 9838[address] Internal Medicine 08/06/16 Ermias Colón MD [address] [address] Referring Physician Neurology 09/23/16 Bonny Cooley MD [address] [id number] Assigned PCP 10/05/15 07/26/20 Pam Hernandez MD [address] [place] [address] [address] [place] [id number] Assigned Behavioral Health Provider 05/30/20 08/01/21 Lázaro Horowitz MD [address] [address] Assigned Rheumatology Provider 05/30/20 07/19/20 Jaime Grover MD [address] [place] [address] Assigned Gastroenterology Provider 05/30/20 11/14/21 Toni Sheth MD [address] [address] Assigned Pediatric Specialist Provider 05/30/20 09/07/20 Toni Sheth MD [address] [address] Assigned Surgical Provider 05/30/2006/28 Bertram Elizabeth MD [address] [place] [address] Assigned PCP 07/27/20 04/25/21 Bonny Cooley MD [address] [place] [address] Assigned PCP 04/26/21 08/15/21 Bertram Elizabeth MD [address] [place] [address] Assigned PCP 08/16/21 10/24/21 Alex Johnson MD [address] [place] [address] Assigned Rheumatology Provider 10/18/21 04/15/23 Bonny Cooley MD [address] [address] Assigned PCP 10/25/21 04/02/22 Bertram Elizabeth MD [address] [address] Assigned PCP 04/03/22 07/23/22 Bertram Elizabeth MD [address] [address] Assigned PCP 10/02/22 04/29/23 documented as of this encounter
--- OUTSIDE RECORDS SUMMARY | 2024-06-05 20:28 | XMS_ITS | Encounter Summary ---
Author Organization [facility] Address [address] [place] [address] Care Team Providers Care Senior Research Engineer Name Role Phone Salazar Bettye Johnson MD Unavailable + Bonny Cooley MD Primary Care Provider Antony Chakraborty MD Unavailable [phone] Mateo Cheema MD Unavailable [phone] Ermias Colón MD Unavailable Bonny Cooley MD Unavailable [phone] Pam Hernandez MD Unavailable [phone] Lázaro Horowitz MD Unavailable Jaime Grover MD Unavailable [phone] Toni Sheth MD Unavailable [phone] Toni Sheth MD Unavailable [phone] Bertram Elizabeth MD Unavailable Bonny Cooley MD Unavailable [phone] Amintaa Youssef MD Primary Care Provider Bertram Elizabeth MD Unavailable Alex Johnson MD Unavailable Bonny Cooley MD Unavailable Bertram Elizabeth MD Unavailable Bretram Elizabeth MD Unavailable Encounter Details Date Type Department Care Team (Late st Contact Info) Description 04/08/2020 MyC Medical Advice [address] [phone] [facility] Social History Tobacco Use Types Packs/Day Years Used Date Smoking Tobacco: Former Cigarettes 2 3 0 04/23/1976 - 12/17/1977 Smokeless Tobacco: Never Alcohol Use Standard Drinks/Week Comments No 0 (1 standard drink = 0.6 oz pur e alcohol) PHQ-2 Answer Date Recorded PHQ-2 Score 4 01/31/2020 Comments No Sex and Gender Information Value Date Recorded Sex Assigned at Female 08/28/2018 12:23 AM HOTEL CONCIERGE Legal Sex Female 4:46 AM HOTEL CONCIERGE Gender Identity Female 08/28/2018 12:23 AM HOTEL CONCIERGE Sexual Orientation Straight 10/11/2019 2: 51 PM HOTEL CONCIERGE COVID-19 Exposure Response Date Recorded In the last month, have you been in contact with someone who was confirmed or suspected to have Coronavirus / COVID-19? No / Unsure 04/11/2020 8:09 PM CDT documented as of this encounter Plan of Treatment Upcoming Encounters Date Type Department Care Team (Late st Contact Info) Description 10/09/2024 2:30 PM HOTEL CONCIERGE Office Visit [address] [address] Alex Johnson MD [address] [place] [address] documented as of this encounter Visit Diagnoses Not on filedocumented in this encounter Additional Health Concerns Infection Onset Date Last Indicated Resolved Time COVID-19 06/23/2020 06/23/2020 07/14/2020 11:4 0 PM HOTEL CONCIERGE Recovered COVID 07/08/2020 07/08/2020 09/21/2020 1 1:39 PM HOTEL CONCIERGE Assessment Noted Time PHQ-9 Depression Total Score: 11 020 2:18 PM CDT documented as of this encounter Care Teams Senior Research Engineer Relationship Specialty Start Date End Date Bonny Cooley MD [address] [place] [address] PCP - General Family Practice 09/30/15 06/02/21 Aminata Youssef MD [facility] [address] [place] [address] PCP - General Internal Medicine 06/03/21 Bettye Gonzales MD MD Internal Medicine 04/10/15 Antony Chakraborty MD [address] [address] MD INTERNAL MEDICINE - ENDOCRINOLOGY, DIABETES & METABOLISM 11/13/15 Mateo Cheema MD [address] [place] [address] [address] Internal Medicine 08/06/16 Ermias Colón MD [address] [address] Referring Physician Neurology 09/23/16 Bonny Cooley MD [address] [address] Assigned PCP 10/05/15 07/26/20 Pam Hernandez MD [address] [place] [address] [place] [address] Assigned Behavioral Health Provider 05/30/20 08/01/21 Lázrao Horowitz MD [place] [address] [address] [place] [address] Assigned Rheumatology Provider 05/30/20 07/19/20 Jaime Grover MD [address] [place] [address] Assigned Gastroenterology Provider 05/30/20 11/14/21 Toni Sheth MD [address] [address] Assigned Pediatric Specialist Provider 05/30/20 09/07/20 Toni Sheth MD [address] [address] Assigned Surgical Provider 05/30/2006/28 Bertram Elizabeth MD [address] [place] [address] Assigned PCP 07/27/20 04/25/21 Bonny Cooley MD [address] [place] [address] Assigned PCP 04/26/21 08/15/21 Bertram Elizabeth MD [address] [place] [address] Assigned PCP 08/16/21 10/24/21 Alex Johnson MD [address] [place] [address] Assigned Rheumatology Provider 10/18/21 04/15/23 Bonny Cooley MD [address] [place] [address] Assigned PCP 10/25/21 04/02/22 Bertram Elizabeth MD [address] [place] [address] Assigned PCP 04/03/22 07/23/22 Bertram Elizabeth MD [address] [place] [address] Assigned PCP 10/02/22 04/29/23 documented as of this encounter
--- OUTSIDE RECORDS SUMMARY | 2024-06-05 20:28 | XMS_ITS | Encounter Summary ---
Author Organization [facility] Address [address] [place] [address] Care Team Providers Care Smooth And Burr Worker Composites Name Role Phone Salazar Bettye Johnson MD Unavailable + Bonny Cooley MD Primary Care Provider [phone] Antony Chakraborty MD Unavailable Mateo Cheema MD Unavailable [phone] Ermias Colón MD Unavailable Bonny Cooley MD Unavailable [phone] Pam Hernandez MD Unavailable [phone] Lázaro Horowitz MD Unavailable Jaime Grover MD Unavailable Toni Sheth MD Unavailable [phone] Toni Sheth MD Unavailable [phone] Bertram Elizabeth MD Unavailable [phone] Bonny Cooley MD Unavailable [phone] Aminata Youssef MD Primary Care Provider [phone] Bertram Elizabeth MD Unavailable Alex Johnson MD Unavailable [phone] Bonny Cooley MD Unavailable [phone] Bertram Elizabeth MD Unavailable [phone] Bertram Elizabeth MD Unavailable Encounter Details Date Type Department Care Team (Late st Contact Info) Description 06/08/2020 MyC Medical Advice [facility] [address] [place] [address] Jaime Grover MD [address] [place] [address] Social History Tobacco Use Types Packs/Day Years Used Date Smoking Tobacco: Former Cigarettes 2 3 0 04/23/1976 - 12/17/1977 Smokeless Tobacco: Never Alcohol Use Standard Drinks/Week Comments No 0 (1 standard drink = 0.6 oz pur e alcohol) PHQ-2 Answer Date Recorded PHQ-2 Score 4 01/31/2020 Comments No Sex and Gender Information Value Date Recorded Sex Assigned at Female 08/28/2018 12:23 AM MANAGER POST Legal Sex Female 4:46 AM MANAGER POST Gender Identity Female 08/28/2018 12:23 AM MANAGER POST Sexual Orientation Straight 10/11/2019 2: 51 PM MANAGER POST COVID-19 Exposure Response Date Recorded In the last month, have you been in contact with someone who was confirmed or suspected to have Coronavirus / COVID-19? No / Unsure 06/06/2020 10:42 AM CDT documented as of this encounter Plan of Treatment Upcoming Encounters Date Type Department Care Team (Late st Contact Info) Description 10/09/2024 2:30 PM MANAGER POST Office Visit [address] [address] Alex Johnson MD [address] [place] [address] documented as of this encounter Visit Diagnoses Not on filedocumented in this encounter Additional Health Concerns Infection Onset Date Last Indicated Resolved Time COVID-19 06/23/2020 06/23/2020 07/14/2020 11:4 0 PM MANAGER POST Recovered COVID 07/08/2020 07/08/2020 09/21/2020 1 1:39 PM MANAGER POST Assessment Noted Time PHQ-9 Depression Total Score: 11 01/30/ 020 2:18 PM CDT documented as of this encounter Care Teams Smooth And Burr Worker Composites Relationship Specialty Start Date End Date Bonny Cooley MD [address] [place] [address] PCP - General Family Practice 09/30/15 06/02/21 Aminata Youssef MD [facility] & [address] [address] PCP - General Internal Medicine 06/03/21 Bettye Gonzales MD MD Internal Medicine 04/10/15 Antony Chakraborty MD [address] [place] [address] 866155 INTERNAL MEDICINE - ENDOCRINOLOGY, DIABETES & METABOLISM 11/13/15 Mateo Cheema MD [address] [address] Internal Medicine 08/06/16 Ermias Colón MD [address] 542925 Referring Physician Neurology 09/23/16 Bonny Cooley MD [address] [address] Assigned PCP 10/05/15 07/26/20 Pam Hernandez MD [address] [place] [address] MALLY LYNNE [address] Assigned Behavioral Health Provider 05/30/20 08/01/21 Lázrao Horowitz MD [address] [address] Assigned Rheumatology Provider 05/30/20 07/19/20 Jaime Grover MD [address] [place] [address] Assigned Gastroenterology Provider 05/30/20 11/14/21 Toni Sheth MD [address] [address] Assigned Pediatric Specialist Provider 05/30/20 09/07/20 Toni Sheth MD [address] [address] Assigned Surgical Provider 05/30/2006/28 Bertram Elizabeth MD [address] [address] Assigned PCP 07/27/20 04/25/21 Bonny Cooley MD [address] [address] Assigned PCP 04/26/21 08/15/21 Bertram Elizabeth MD [address] [address] Assigned PCP 08/16/21 10/24/21 Alex Johnson MD [address] [place] [address] Assigned Rheumatology Provider 10/18/21 04/15/23 Bonny Cooley MD [address] [address] Assigned PCP 10/25/21 04/02/22 Bertram Elizabeth MD [address] [address] Assigned PCP 04/03/22 07/23/22 Bertram Elizabeth MD [address] [address] Assigned PCP 10/02/22 04/29/23 documented as of this encounter
--- OUTSIDE RECORDS SUMMARY | 2024-06-05 20:28 | XMS_ITS | Encounter Summary ---
Author Organization [facility] Address [address] [place] [address] Care Team Providers Care Bolt Cutter Name Role Phone Salazar Bettye Johnson MD Unavailable + Bonny Cooley MD Primary Care Provider Antony Chakraborty MD Unavailable Mateo Cheema MD Unavailable Ermias Colón MD Unavailable Bonny Cooley MD Unavailable [phone] Pam Hernandez MD Unavailable [phone] Lázaro Horowitz MD Unavailable Jaime Grover MD Unavailable Toni Sheth MD Unavailable [phone] Toni Sheth MD Unavailable [phone] Bertram Elizabeth MD Unavailable Bonny Cooley MD Unavailable [phone] Aminata Youssef MD Primary Care Provider Bertram Elizabeth MD Unavailable Alex Johnson MD Unavailable Bonny Cooley MD Unavailable [phone] Bertram Elizabeth MD Unavailable Bertram Elizabeth MD Unavailable Encounter Details Date Type Department Care Team (Late st Contact Info) Description 08/27/2019 MyC Medical Advice [facility] Rhe[facility]ology Clinic [address] [phone] Toni Del Angel MD [address] [place] [address] Social History Tobacco Use Types Packs/Day Years Used Date Smoking Tobacco: Former Cigarettes 2 3 0 04/23/1976 - 12/17/1977 Smokeless Tobacco: Never Alcohol Use Standard Drinks/Week Comments No 0 (1 standard drink = 0.6 oz pur e alcohol) PHQ-2 Answer Date Recorded PHQ-2 Score 5 07/24/2019 Comments No Sex and Gender Information Value Date Recorded Sex Assigned at Female 08/28/2018 12:23 AM UNHAIRER Legal Sex Female 4:46 AM UNHAIRER Gender Identity Female 08/28/2018 12:23 AM UNHAIRER Sexual Orientation Straight 10/11/2019 2: 51 PM UNHAIRER documented as of this encounter Plan of Treatment Upcoming Encounters Date Type Department Care Team (Late st Contact Info) Description 10/09/2024 2:30 PM UNHAIRER Office Visit [address] [address] Alex Johnson MD [address] [place] [address] documented as of this encounter Visit Diagnoses Not on filedocumented in this encounter Additional Health Concerns Infection Onset Date Last Indicated Resolved Time COVID-19 06/23/2020 06/23/2020 07/14/2020 11:4 0 PM UNHAIRER Recovered COVID 07/08/2020 07/08/2020 09/21/2020 1 1:39 PM UNHAIRER Assessment Noted Time PHQ-9 Depression Total Score: 019 2:39 PM UNHAIRER documented as of this encounter Care Teams Bolt Cutter Relationship Specialty Start Date End Date Bonny Cooley MD [address] [place] [address] PCP - General Family Practice 09/30/15 06/02/21 Aminata Youssef MD [facility] [address] [place] [address] PCP - General Internal Medicine 06/03/21 Bettye Gonzales MD Internal Medicine 04/10/15 Antony Chakraborty MD [address] [phone] MD INTERNAL MEDICINE - ENDOCRINOLOGY, DIABETES & METABOLISM 11/13/15 Mateo Cheema MD [address] [place] [address] [address] Internal Medicine 08/06/16 Ermias Colón MD [address] [address] Referring Physician Neurology 09/23/16 Bonny Cooley MD [address] [address] Assigned PCP 10/05/15 07/26/20 Pam Hernandez MD [address] [place] [address] [place] [address] Assigned Behavioral Health Provider 05/30/20 08/01/21 Lázaro Horowitz MD [facility] [address] [place] [address] Assigned Rheumatology Provider 05/30/20 07/19/20 Jaime Grover MD [address] [place] [address] Assigned Gastroenterology Provider 05/30/20 11/14/21 Toni Sheth MD [address] [address] Assigned Pediatric Specialist Provider 05/30/20 09/07/20 Toni Sheth MD [address] [address] Assigned Surgical Provider 05/30/2006/28 Bertram Elizabeth MD [address] [place] [address] Assigned PCP 07/27/20 04/25/21 Bonny Cooley MD [address] [place] [address] Assigned PCP 04/26/21 08/15/21 Bertram Elizabeth MD [address] [place] [address] Assigned PCP 08/16/21 10/24/21 Alex Johnson MD [address] [place] [address], [place] [address] Assigned Rheumatology Provider 10/18/21 04/15/23 Bonny Cooley MD [address] [address] Assigned PCP 10/25/21 04/02/22 Bertram Elizabeth MD [address] [place] [address] Assigned PCP 04/03/22 07/23/22 Bertram Elizabeth MD [address] [address] Assigned PCP 10/02/22 04/29/23 documented as of this encounter
--- OUTSIDE RECORDS SUMMARY | 2024-06-05 20:28 | XMS_ITS | Encounter Summary ---
Author Organization [facility] Address [address] [place] [address] Care Team Providers Care Beater Room Helper Name Role Phone Salazar Bettye Johnson MD Unavailable + Bonny Cooley MD Primary Care Provider Antony Chakraborty MD Unavailable Mateo Cheema MD Unavailable Ermias Colón MD Unavailable Bonny Cooley MD Unavailable [phone] Pam Hernandez MD Unavailable [phone] Lázaro Horowitz MD Unavailable Jaime Grover MD Unavailable Toni Sheth MD Unavailable [phone] Toni Sheth MD Unavailable [phone] Bertram Elizabeth MD Unavailable [phone] Bonny Cooley MD Unavailable [phone] Aminata Youssef MD Primary Care Provider [phone] Bertram Elizabeth MD Unavailable [phone] Alex Johnson MD Unavailable Bonny Cooley MD Unavailable [phone] Bertram Elizabeth MD Unavailable [phone] Bertram Elizabeth MD Unavailable Encounter Details Date Type Department Care Team (Late st Contact Info) Description 06/02/2020 MyC Medical Advice [facility] Gastroenterology Clinic [address] [place] [address] Jaime Grover MD [address] [place] [address] Social History Tobacco Use Types Packs/Day [...] Assigned at Female 08/28/2018 12:23 AM MANAGER QUALITY IMPROVEMENT Legal Sex Female 4:46 AM MANAGER QUALITY IMPROVEMENT Gender Identity Female 08/28/2018 12:23 AM MANAGER QUALITY IMPROVEMENT Sexual Orientation Straight 10/11/2019 2: 51 PM MANAGER QUALITY IMPROVEMENT COVID-19 Exposure Response Date Recorded In the last month, have you been in contact with someone who was confirmed or suspected to have Coronavirus / COVID-19? No / Unsure 06/04/2020 2:17 PM CDT documented as of this encounter Plan of Treatment Upcoming Encounters Date Type Department Care Team (Late st Contact Info) Description 10/09/2024 2:30 PM MANAGER QUALITY IMPROVEMENT Office Visit [address] [address] Alex Johnson MD [address] [place] [address] documented as of this encounter Visit Diagnoses Not on filedocumented in this encounter Additional Health Concerns Infection Onset Date Last Indicated Resolved Time COVID-19 06/23/2020 06/23/2020 07/14/2020 11:4 0 PM MANAGER QUALITY IMPROVEMENT Recovered COVID 07/08/2020 07/08/2020 09/21/2020 1 1:39 PM MANAGER QUALITY IMPROVEMENT Assessment Noted Time PHQ-9 Depression Total Score: 11 01/30/ 020 2:18 PM CDT documented as of this encounter Care Teams Beater Room Helper Relationship Specialty Start Date End Date Bonny Cooley MD [address] [place] [address] PCP - General Family Practice 09/30/15 06/02/21 Aminata Youssef MD [facility] & [address] [address] PCP - General Internal Medicine 06/03/21 Bettye Gonzales MD MD Internal Medicine 04/10/15 Antony Chakraborty MD [address] [place] [address] 173785 INTERNAL MEDICINE - ENDOCRINOLOGY, DIABETES & METABOLISM 11/13/15 Mateo Cheema MD [address] 2534[address] Internal Medicine 08/06/16 Ermias Colón MD [address] [address] Referring Physician Neurology 09/23/16 Bonny Cooley MD [address] [address] Assigned PCP 10/05/15 07/26/20 Pam Hernandez MD [address] [place] [address] MALLY LYNNE [address] Assigned Behavioral Health Provider 05/30/20 08/01/21 Lázaro Horowitz MD [address] [address] Assigned Rheumatology Provider 05/30/20 07/19/20 Jaime Grover MD [address] [place] [address] Assigned Gastroenterology Provider 05/30/20 11/14/21 Toni Sheth MD [address] [address] Assigned Pediatric Specialist Provider 05/30/20 09/07/20 Toni Sheth MD [address] [address] Assigned Surgical Provider 05/30/2006/28 Bertram Elizabeth MD [address] [address] Assigned PCP 07/27/20 04/25/21 Bonny Cooley MD [address] [address] Assigned PCP 04/26/21 08/15/21 Bertram Elizabeth MD [address] [address] Assigned PCP 08/16/21 10/24/21 Alex Johnson MD [address] [place] [address] Assigned Rheumatology Provider 10/18/21 04/15/23 Bonny Cooley MD [address] [address] Assigned PCP 10/25/21 04/02/22 Bertram Elizabeth MD [address] [address] Assigned PCP 04/03/22 07/23/22 Bertram Elizabeth MD [address] [address] Assigned PCP 10/02/22 04/29/23 documented as of this encounter
--- OUTSIDE RECORDS SUMMARY | 2024-06-05 20:28 | XMS_ITS | Encounter Summary ---
Author Organization [facility] Address [address] [place] [address] Care Team Providers Care Program Research Specialist Name Role Phone Salazar Bettye Johnson MD Unavailable + Bonny Cooley MD Primary Care Provider [phone] Antony Chakraborty MD Unavailable [phone] Mateo Cheema MD Unavailable [phone] Ermias Colón MD Unavailable Bonny Cooley MD Unavailable [phone] Pam Hernandez MD Unavailable [phone] Lázaro Horowitz MD Unavailable Jaime Grover MD Unavailable Toni Sheth MD Unavailable [phone] Toni Sheth MD Unavailable [phone] Bertram Elizabeth MD Unavailable Bonny Cooley MD Unavailable [phone] Aminata Youssef MD Primary Care Provider Bertram Elizabeth MD Unavailable Alex Johnson MD Unavailable Bonny Cooley MD Unavailable [phone] Bertram Elizabeth MD Unavailable [phone] Bertram Elizabeth MD Unavailable [phone] Encounter Details Date Type Department Care Team (Late st Contact Info) Description 06/18/2020 MyC Medical Advice [facility] Gastroenterology Clinic [address] [place] [address] Jaime Grover MD [address] [place] [address] Social History Tobacco Use Types Packs/Day Years Used Date Smoking Tobacco: Former Cigarettes 2 3 0 04/23/1976 - 12/17/1977 Smokeless Tobacco: Never Alcohol Use Standard Drinks/Week Comments No 0 (1 standard drink = 0.6 oz pur e alcohol) PHQ-2 Answer Date Recorded PHQ-2 Score 4 01/31/2020 Comments No Sex and Gender Information Value Date Recorded Sex Assigned at Female 08/28/2018 12:23 AM JEWISH HISTORY PROFESSOR Legal Sex Female 4:46 AM JEWISH HISTORY PROFESSOR Gender Identity Female 08/28/2018 12:23 AM JEWISH HISTORY PROFESSOR Sexual Orientation Straight 10/11/2019 2: 51 PM JEWISH HISTORY PROFESSOR COVID-19 Exposure Response Date Recorded In the last month, have you been in contact with someone who was confirmed or suspected to have Coronavirus / COVID-19? No / Unsure 06/06/2020 10:42 AM CDT documented as of this encounter Plan of Treatment Upcoming Encounters Date Type Department Care Team (Late st Contact Info) Description 10/09/2024 2:30 PM JEWISH HISTORY PROFESSOR Office Visit [address] [address] Alex Johnson MD [address] [place] [address] documented as of this encounter Visit Diagnoses Not on filedocumented in this encounter Additional Health Concerns Infection Onset Date Last Indicated Resolved Time COVID-19 06/23/2020 06/23/2020 07/14/2020 11:4 0 PM JEWISH HISTORY PROFESSOR Recovered COVID 07/08/2020 07/08/2020 09/21/2020 1 1:39 PM JEWISH HISTORY PROFESSOR Assessment Noted Time PHQ-9 Depression Total Score: 11 01/30/ 020 2:18 PM CDT documented as of this encounter Care Teams Program Research Specialist Relationship Specialty Start Date End Date Bonny Cooley MD [address] [place] [address] PCP - General Family Practice 09/30/15 06/02/21 Aminata Youssef MD [facility] & [address] [address] PCP - General Internal Medicine 06/03/21 Bettye Gonzales MD MD Internal Medicine 04/10/15 Antony Chakraborty MD [address] [place] [address] 030765 INTERNAL MEDICINE - ENDOCRINOLOGY, DIABETES & METABOLISM 11/13/15 Mateo Cheema MD [address] 469945 Internal Medicine 08/06/16 Ermias Colón MD [address] [address] Referring Physician Neurology 09/23/16 Bonny Cooley MD [address] [address] Assigned PCP 10/05/15 07/26/20 Pam Hernandez MD [address] [place] [address] MALLY LYNNE [address] Assigned Behavioral Health Provider 05/30/20 08/01/21 Lázaro Horowitz MD [address] [address] Assigned Rheumatology Provider 05/30/20 07/19/20 Jaime Grover MD [address] [place] [address] Assigned Gastroenterology Provider 05/30/20 11/14/21 Toni Sheth MD [address] [address] Assigned Pediatric Specialist Provider 05/30/20 09/07/20 Toni Sheth MD [address] [address] Assigned Surgical Provider 05/30/2006/28 Bertram Elizabeth MD [address] [address] Assigned PCP 07/27/20 04/25/21 Bonny Cooley MD [address] [address] Assigned PCP 04/26/21 08/15/21 Bertram Elizabeth MD [address] [address] Assigned PCP 08/16/21 10/24/21 Alex Johnson MD [address] [place] [address] Assigned Rheumatology Provider 10/18/21 04/15/23 Bonny Cooley MD [address] [address] Assigned PCP 10/25/21 04/02/22 Bertram Elizabeth MD [address] [address] Assigned PCP 04/03/22 07/23/22 Bertram Elizabeth MD [address] [address] Assigned PCP 10/02/22 04/29/23 documented as of this encounter
--- OUTSIDE RECORDS SUMMARY | 2024-06-05 20:28 | XMS_ITS | Encounter Summary ---
Author Organization [facility] Address [address] [place] [address] Care Team Providers Care Email Marketing Intern Name Role Phone Salazar Bettye Johnson MD Unavailable + Bonny Cooley MD Primary Care Provider Antony Chakraborty MD Unavailable Mateo Cheema MD Unavailable Ermias Colón MD Unavailable Bonny Cooley MD Unavailable [phone] Pam Hernandez MD Unavailable [phone] Lázaro Horowitz MD Unavailable Jaime Grover MD Unavailable Toni Sheth MD Unavailable [phone] Toni Sheth MD Unavailable [phone] Bertram Elizabeth MD Unavailable Bonny Cooley MD Unavailable [phone] Aminata Youssef MD Primary Care Provider Bertram Elizabeth MD Unavailable Alex Johnson MD Unavailable [phone] Bonny Cooley MD Unavailable [phone] Bertram Elizabeth MD Unavailable [phone] Bertram Elizabeth MD Unavailable Encounter Details Date Type Department Care Team (Late st Contact Info) Description 06/06/2020 MyC Medical Advice [facility] [address] [place] [address] Jaime Grover MD [address] [place] [address] Social History Tobacco Use Types Packs/Day Years Used Date Smoking Tobacco: Former Cigarettes 2 3 0 04/23/1976 - 12/17/1977 Smokeless Tobacco: Never Alcohol Use Standard Drinks/Week Comments No 0 (1 standard drink = 0.6 oz pur e alcohol) PHQ-2 Answer Date Recorded PHQ-2 Score 4 01/31/2020 Comments No Sex and Gender Information Value Date Recorded Sex Assigned at Female 08/28/2018 12:23 AM THIRD HAND Legal Sex Female 4:46 AM THIRD HAND Gender Identity Female 08/28/2018 12:23 AM THIRD HAND Sexual Orientation Straight 10/11/2019 2: 51 PM THIRD HAND COVID-19 Exposure Response Date Recorded In the last month, have you been in contact with someone who was confirmed or suspected to have Coronavirus / COVID-19? No / Unsure 06/06/2020 10:42 AM CDT documented as of this encounter Plan of Treatment Upcoming Encounters Date Type Department Care Team (Late st Contact Info) Description 10/09/2024 2:30 PM THIRD HAND Office Visit [address] [address] Alex Johnson MD [address] [place] [address] documented as of this encounter Visit Diagnoses Not on filedocumented in this encounter Additional Health Concerns Infection Onset Date Last Indicated Resolved Time COVID-19 06/23/2020 06/23/2020 07/14/2020 11:4 0 PM THIRD HAND Recovered COVID 07/08/2020 07/08/2020 09/21/2020 1 1:39 PM THIRD HAND Assessment Noted Time PHQ-9 Depression Total Score: 11 01/30/ 020 2:18 PM CDT documented as of this encounter Care Teams Email Marketing Intern Relationship Specialty Start Date End Date Bonny Cooley MD [address] [place] [address] PCP - General Family Practice 09/30/15 06/02/21 Aminata Youssef MD [facility] & [address] [address] PCP - General Internal Medicine 06/03/21 Bettye Gonzales MD MD Internal Medicine 04/10/15 Antony Chakraborty MD [address] [place] [address] [id number] INTERNAL MEDICINE - ENDOCRINOLOGY, DIABETES & METABOLISM 11/13/15 Mateo Cheema MD [address] 286605 Internal Medicine 08/06/16 Ermias Colón MD [address] 0[address] Referring Physician Neurology 09/23/16 Bonny Cooley MD [address] [address] Assigned PCP 10/05/15 07/26/20 Pam Hernandez MD [address] [place] [address] MALLY LYNNE [address] Assigned Behavioral Health Provider 05/30/20 08/01/21 Lázaro Horowitz MD [address] [address] Assigned Rheumatology Provider 05/30/20 07/19/20 Jaime Grover MD [address] [place] [address] Assigned Gastroenterology Provider 05/30/20 11/14/21 Toni Sheth MD [address] [address] Assigned Pediatric Specialist Provider 05/30/20 09/07/20 Toni Sheth MD [address] [address] Assigned Surgical Provider 05/30/2006/28 Bertram Elizabeth MD [address] [address] Assigned PCP 07/27/20 04/25/21 Bonny Cooley MD [address] [address] Assigned PCP 04/26/21 08/15/21 Bertram Elizabeth MD [address] [address] Assigned PCP 08/16/21 10/24/21 Alex Johnson MD [address] [place] [address] Assigned Rheumatology Provider 10/18/21 04/15/23 Bonny Cooley MD [address] [address] Assigned PCP 10/25/21 04/02/22 Bertram Elizabeth MD [address] [address] Assigned PCP 04/03/22 07/23/22 Bertram Elizabeth MD [address] [address] Assigned PCP 10/02/22 04/29/23 documented as of this encounter
--- OUTSIDE RECORDS SUMMARY | 2024-06-05 20:28 | XMS_ITS | Encounter Summary ---
Author Organization [facility] Address [address] [place] [address] Care Team Providers Care Retail Selling Specialist Name Role Phone Salazar Bettye Johnson MD Unavailable + Bonny Cooley MD Primary Care Provider Antony Chakraborty MD Unavailable Mateo Cheema MD Unavailable Ermias Colón MD Unavailable Bonny Cooley MD Unavailable [phone] Pam Hernandez MD Unavailable [phone] Lázaro Horowitz MD Unavailable Jaime Grover MD Unavailable [phone] Toni Sheth MD Unavailable [phone] Toni Sheth MD Unavailable [phone] Bertram Elizabeth MD Unavailable Bonny Cooley MD Unavailable [phone] Aminata Youssef MD Primary Care Provider Bertram Elizabeth MD Unavailable Alex Johnson MD Unavailable Bonny Cooley MD Unavailable [phone] Bertram Elizabeth MD Unavailable Bertram Elizabeth MD Unavailable Reason for Visit * Reason Onset Date Comments Appointment 07/26/2019 Encounter Details Date Type Department Care Team ([facility] Contact Info) Description 07/26/[address] [address] Bonny Cooley MD [address] [phone] Appointment Social History Tobacco Use Types Packs/Day Years Used Date Smoking Tobacco: Former Cigarettes 2 3 0 04/23/1976 - 12/17/1977 Smokeless Tobacco: Never Alcohol Use Standard Drinks/Week Comments No 0 (1 standard drink = 0.6 oz pur e alcohol) PHQ-2 Answer Date Recorded PHQ-2 Score 5 07/24/2019 Comments No Sex and Gender Information Value Date Recorded Sex Assigned at Female 08/28/2018 12:23 AM ASSISTED LIVING ADMINISTRATOR Legal Sex Female 4:46 AM ASSISTED LIVING ADMINISTRATOR Gender Identity Female 08/28/2018 12:23 AM ASSISTED LIVING ADMINISTRATOR Sexual Orientation Straight 10/11/2019 2: 51 PM ASSISTED LIVING ADMINISTRATOR documented as of this encounter Miscellaneous Notes * Telephone Encounter - Marcus Rothman - 07/26/2019 2:48 PM CST We did not reach Heidi Miller, we left a message with our contact number [phone]. If we donot hear from them within the next 3 business days we will mail a letter offering our scheduling services. If they do call to schedule, in the future, we will inform you of the outcome. Thank you for your referral, [facility] Outpatient Intake STED LIVING ADMINISTRATOR documented in this encounter Plan of Treatment Upcoming Encounters Date Type Department Care Team ([facility] Contact Info) Description 10/09/2024 2:30 PM ASSISTED LIVING ADMINISTRATOR Office Visit [facility] [address] [place] [phone] Alex Johnson MD 515 [facility] [address] [place] [address] documented as of this encounter Visit Diagnoses Not on filedocumented in this encounter Additional Health Concerns Infection Onset Date Last Indicated Resolved Time COVID-19 06/23/2020 06/23/2020 07/14/2020 11:4 0 PM ASSISTED LIVING ADMINISTRATOR Recovered COVID 07/08/2020 07/08/2020 09/21/2020 1 1:39 PM ASSISTED LIVING ADMINISTRATOR Assessment Noted Time PHQ-9 Depression Total Score: 16 019 2:39 PM ASSISTED LIVING ADMINISTRATOR documented as of this encounter Care Teams Retail Selling Specialist Relationship Specialty Start Date End Date Bonny Cooley MD [address] [place] [address] PCP - General Family Practice 09/30/15 06/02/21 Aminata Youssef MD [facility] [address] [place] [address] PCP - General Internal Medicine 06/03/21 Bettye Gonzales MD Internal Medicine 04/10/15 Antony Chakraborty MD [address] [phone] INTERNAL MEDICINE - ENDOCRINOLOGY, DIABETES & METABOLISM 11/13/15 Mateo Cheema MD [address] 748495 Internal Medicine 08/06/16 Ermias Colón MD [address] [place] [address] 101 [place] [address] Referring Physician Neurology 09/23/16 Bonny Cooley MD [address] [address] Assigned PCP 10/05/15 07/26/20 Pam Henrandez MD [address] [place] [address] [place] [address] Assigned Behavioral Health Provider 05/30/20 08/01/21 Lázaro Horowitz MD [facility] [address] [place] [address] Assigned Rheumatology Provider 05/30/20 07/19/20 Jaime Grover MD [address] [place] [address] Assigned Gastroenterology Provider 05/30/20 11/14/21 Toni Sheth MD [address] [address] Assigned Pediatric Specialist Provider 05/30/20 09/07/20 Toni Sheth MD [address] [address] Assigned Surgical Provider 05/30/2006/28 Bertram Elizabeth MD 2270 [facility] 200 [place] [address] Assigned PCP 07/27/20 04/25/21 Bonny Cooley MD 2270 [facility] [address] [place] [address] Assigned PCP 04/26/21 08/15/21 Bertram Elizabeth MD 2270 [facility] [address] [place] [address] Assigned PCP 08/16/21 10/24/21 Alex Johnson MD [address] [place] [address], [place] [address] Assigned Rheumatology Provider 10/18/21 04/15/23 Bonny Cooley MD 0 [facility] 200 [place] [address] Assigned PCP 10/25/21 04/02/22 Bertram Elizabeth MD 2270 [facility] [address] [place] [address] Assigned PCP 04/03/22 07/23/22 Bertram Elizabeth MD 2270 [facility] 200 [place] [address] Assigned PCP 10/02/22 04/29/23 documented as of this encounter
--- OUTSIDE RECORDS SUMMARY | 2024-06-05 20:28 | XMS_ITS | Encounter Summary ---
Author Organization [facility] Address [address] [place] [address] Care Team Providers Care Injection Wax Molder Name Role Phone Salazar Bettye Johnson MD Unavailable + Bonny Cooley MD Primary Care Provider Antony Chakraborty MD Unavailable Mateo Cheema MD Unavailable Ermias Colón MD Unavailable Bonny Cooley MD Unavailable [phone] Pam Hernandez MD Unavailable [phone] Lázaro Horowitz MD Unavailable Jaime Grover MD Unavailable [phone] Toni Sheth MD Unavailable [phone] Toni Sheth MD Unavailable [phone] Bertram Elizabeth MD Unavailable Bonny Cooley MD Unavailable [phone] Aminata Youssef MD Primary Care Provider Bertram Elizabeth MD Unavailable Alex Johnson MD Unavailable [phone] Bonny Cooley MD Unavailable [phone] Bertram Elizabeth MD Unavailable Bertram Elizabeth MD Unavailable Reason for Visit * Reason Onset Date Comments Refill Request 12/02/2019 CELECOXIB 100MG CAPS Encounter Details Date Type Department Care Team (Late st Contact Info) Description 12/02/[address] [address] Bonny Cooley MD [address] [phone] Refill Request (CELECOXIB 100MG CAPS ) Social History Tobacco Use Types Packs/Day Years Used Date Smoking Tobacco: Former Cigarettes 2 3 0 04/23/1976 - 12/17/1977 Smokeless Tobacco: Never Alcohol Use Standard Drinks/Week Comments No 0 (1 standard drink = 0.6 oz pur e alcohol) PHQ-2 Answer Date Recorded PHQ-2 Score 4 12/06/2019 Comments No Sex and Gender Information Value Date Recorded Sex Assigned at Female 08/28/2018 12:23 AM BACON STRINGER Legal Sex Female 4:46 AM BACON STRINGER Gender Identity Female 08/28/2018 12:23 AM BACON STRINGER Sexual Orientation Straight 10/11/2019 2: 51 PM BACON STRINGER COVID-19 Exposure Response Date Recorded In the [...] CDT Telephone Visit with Pam Hernandez MD [facility] ([facility] [address] [place] [phone] NSAID Medications Failed - 12/02/2019 4:45 [...] st Contact Info) Description 10/09/2024 2:30 PM BACON STRINGER Office Visit [address] [address] Alex Johnson MD [address] [phone] documented as of this encounter Visit Diagnoses Diagnosis Osteoarthritis, unspecified osteoarthritis type, unspecified site documented in this encounter Additional Health Concerns Infection Onset Date Last Indicated Resolved Time COVID-19 06/23/2020 06/23/2020 07/14/2020 11:4 0 PM BACON STRINGER Recovered COVID 07/08/2020 07/08/2020 09/21/2020 1 1:39 PM BACON STRINGER Assessment Noted Time PHQ-9 Depression Total Score: 15 020 2:41 PM BACON STRINGER documented as of this encounter Care Teams Injection Wax Molder Relationship Specialty Start Date End Date Bonny Cooley MD [address] [place] [address] PCP - General Family Practice 09/30/15 06/02/21 Aminata Youssef MD [facility] [address] [place] [address] PCP - General Internal Medicine 06/03/21 Bettye Gonzales MD Internal Medicine 04/10/15 Antony Chakraborty MD [address] [place] [address] INTERNAL MEDICINE - ENDOCRINOLOGY, DIABETES & METABOLISM 11/13/15 Mateo Cheema MD [address] [place] [address] Internal Medicine 08/06/16 Ermias Colón MD [address] [place] [address] 101 [place] [address] Referring Physician Neurology 09/23/16 Bonny Cooley MD [address] [address] Assigned PCP 10/05/15 07/26/20 Pam Hernandez MD [address] [place] [address] [place] [address] Assigned Behavioral Health Provider 05/30/20 08/01/21 Lázaro Horowitz MD [address] [address] Assigned Rheumatology Provider 05/30/20 07/19/20 Jaime Grover MD [address] [place] [address] Assigned Gastroenterology Provider 05/30/20 11/14/21 Toni Sheth MD [address] [address] Assigned Pediatric Specialist Provider 05/30/20 09/07/20 Toni Sheth MD [address] [address] Assigned Surgical Provider 05/30/2006/28 Bertram Elizabeth MD 2270 [facility] 200 [place] [address] Assigned PCP 07/27/20 04/25/21 Bonny Cooley MD 2270 [facility] 200 [place] [address] Assigned PCP 04/26/21 08/15/21 Bertram Elizabeth MD 0 [facility] 200 [place] [address] Assigned PCP 08/16/21 10/24/21 Alex Johnson MD [address] [place] [address] Assigned Rheumatology Provider 10/18/21 04/15/23 Bonny Cooley MD [address] [place] [address] Assigned PCP 10/25/21 04/02/22 Bertram Elizabeth MD [address] [place] [address] Assigned PCP 04/03/22 07/23/22 Bertram Elizabeth MD 2270 [facility] 200 [place] [address] Assigned PCP 10/02/22 04/29/23 documented as of this encounter
--- OUTSIDE RECORDS SUMMARY | 2024-06-05 20:28 | XMS_ITS | Encounter Summary ---
Author Organization [facility] Address [address] [place] [address] Care Team Providers Care Licensed Master Social Worker Name Role Phone Salazar Bettye Johnson MD Unavailable + Bonny Cooley MD Primary Care Provider [phone] Antony Chakraborty MD Unavailable [phone] Mateo Cheema MD Unavailable Ermias Colón MD Unavailable Bonny Cooley MD Unavailable [phone] Pam Hernandez MD Unavailable [phone] Lázaro Horowitz MD Unavailable Jaime Grover MD Unavailable Toni Sheth MD Unavailable [phone] Toni Sheth MD Unavailable [phone] Bertram Elizabeth MD Unavailable [phone] Bonny Cooley MD Unavailable [phone] Aminata Youssef MD Primary Care Provider Bertram Elizabeth MD Unavailable [phone] Alex Johnson MD Unavailable [phone] Bonny Cooley MD Unavailable [phone] Bertram Elizabeth MD Unavailable Bertram Elizabeth MD Unavailable [phone] Encounter Details Date Type Department Care Team (Late st Contact Info) Description 06/27/2020 [facility] Medical Advice Adult Call Center [address] [place] [phone] Keyona Carter Social History Tobacco Use [...] Sex Assigned at Female 08/28/2018 12:23 AM BUSINESS INFO CONSULTANT Legal Sex Female 4:46 AM BUSINESS INFO CONSULTANT Gender Identity Female 08/28/2018 12:23 AM BUSINESS INFO CONSULTANT Sexual Orientation Straight 10/11/2019 2: 51 PM BUSINESS INFO CONSULTANT COVID-19 Exposure Response Date Recorded In the last month, have you been in contact with someone who was confirmed or suspected to have Coronavirus / COVID-19? No / Unsure 06/23/2020 10:33 AM BUSINESS INFO CONSULTANT documented as of this encounter Plan of Treatment Upcoming Encounters Date Type Department Care Team (Late st Contact Info) Description 10/09/2024 2:30 PM BUSINESS INFO CONSULTANT Office Visit [address] [address] Alex Johnson MD [address] [place] [address] documented as of this encounter Visit Diagnoses Not on filedocumented in this encounter Additional Health Concerns Infection Onset Date Last Indicated Resolved Time COVID-19 06/23/2020 06/23/2020 07/14/2020 11:4 0 PM BUSINESS INFO CONSULTANT Recovered COVID 07/08/2020 07/08/2020 09/21/2020 1 1:39 PM BUSINESS INFO CONSULTANT Assessment Noted Time PHQ-9 Depression Total Score: 11 020 2:18 PM CDT documented as of this encounter Care Teams Licensed Master Social Worker Relationship Specialty Start Date End Date Bonny Cooley MD [address] [place] [address] PCP - General Family Practice 09/30/15 06/02/21 Aminata Youssef MD [facility] [address] [place] [address] PCP - General Internal Medicine 06/03/21 Bettye Gonzales MD Internal Medicine 04/10/15 Antony Chakraborty MD [address] [place] [address] [address] MD INTERNAL MEDICINE - ENDOCRINOLOGY, DIABETES & METABOLISM 11/13/15 Mateo Cheema MD [address] [place] [address] [phone] Internal Medicine 08/06/16 Ermias Colón MD [address] [place] [address] 204285 Referring Physician Neurology 09/23/16 Bonny Cooley MD [address] [address] Assigned PCP 10/05/15 07/26/20 Pam Hernandez MD [address] [place] [address] [place] [address] Assigned Behavioral Health Provider 05/30/20 08/01/21 Lázaro Horowitz MD [facility] [address] [place] [address] Assigned Rheumatology Provider 05/30/20 07/19/20 Jaime Grover MD [address] [place] [address] Assigned Gastroenterology Provider 05/30/20 11/14/21 Toni Sheth MD [address] [address] Assigned Pediatric Specialist Provider 05/30/20 09/07/20 Toni Sheth MD [address] [address] Assigned Surgical Provider 05/30/2006/28 Bertram Elizabeth MD [address] [place] [address] Assigned PCP 07/27/20 04/25/21 Bonny Cooley MD [address] [place] [address] Assigned PCP 04/26/21 08/15/21 Bertram Elizabeth MD [address] [place] [address] Assigned PCP 08/16/21 10/24/21 Alex Johnson MD [address] [place] [address] Assigned Rheumatology Provider 10/18/21 04/15/23 Bonny Cooley MD [address] [address] Assigned PCP 10/25/21 04/02/22 Bertram Elizabeth MD [address] [address] Assigned PCP 04/03/22 07/23/22 Bertram Elizabeth MD [address] [address] Assigned PCP 10/02/22 04/29/23 documented as of this encounter
--- OUTSIDE RECORDS SUMMARY | 2024-06-05 20:28 | XMS_ITS | Encounter Summary ---
Author Organization [facility] Address [address] [place] [address] Care Team Providers Care Communication Skills Instructor Name Role Phone Salazar Bettye Johnson MD Unavailable + Bonny Cooley MD Primary Care Provider [phone] Antony Chakraborty MD Unavailable Mateo Cheema MD Unavailable [phone] Ermias Colón MD Unavailable Bonny Cooley MD Unavailable [phone] Pam Hernandez MD Unavailable [phone] Lázaro Horowitz MD Unavailable Jaime Grover MD Unavailable [phone] Toni Sheth MD Unavailable [phone] Toni Sheth MD Unavailable [phone] Bertram Elizabeth MD Unavailable Bonny Cooley MD Unavailable [phone] Aminata Youssef MD Primary Care Provider Bertram Elizabeth MD Unavailable Alex Johnson MD Unavailable Bonny Cooley MD Unavailable [phone] Bertram Elizabeth MD Unavailable Bertram Elizabeth MD Unavailable Encounter Details Date Type Department Care Team (Late st Contact Info) Description 06/26/2020 MyC Medical Advice [facility] Endocrinology [address] 3rd [place] [address] Mateo Cheema MD 420 [facility] 101 [place] [address] Social History Tobacco Use Types [...] Sex Assigned at Female 08/28/2018 12:23 AM HEALTH TECHNICIAN HEARING Legal Sex Female 4:46 AM HEALTH TECHNICIAN HEARING Gender Identity Female 08/28/2018 12:23 AM HEALTH TECHNICIAN HEARING Sexual Orientation Straight 10/11/2019 2: 51 PM HEALTH TECHNICIAN HEARING COVID-19 Exposure Response Date Recorded In the last month, have you been in contact with someone who was confirmed or suspected to have Coronavirus / COVID-19? No / Unsure 06/23/2020 10:33 AM HEALTH TECHNICIAN HEARING documented as of this encounter Plan of Treatment Upcoming Encounters Date Type Department Care Team (Late st Contact Info) Description 10/09/2024 2:30 PM HEALTH TECHNICIAN HEARING Office Visit [address] [address] Alex Johnson MD 515 [facility] 88 [place] [address] documented as of this encounter Visit Diagnoses Not on filedocumented in this encounter Additional Health Concerns Infection Onset Date Last Indicated Resolved Time COVID-19 06/23/2020 06/23/2020 07/14/2020 11:4 0 PM HEALTH TECHNICIAN HEARING Recovered COVID 07/08/2020 07/08/2020 09/21/2020 1 1:39 PM HEALTH TECHNICIAN HEARING Assessment Noted Time PHQ-9 Depression Total Score: 11 01/30/ 020 2:18 PM CDT documented as of this encounter Care Teams Communication Skills Instructor Relationship Specialty Start Date End Date Bonny Cooley MD [address] [place] [address] PCP - General Family Practice 09/30/15 06/02/21 Aminata Youssef MD [facility] & [address] [address] PCP - General Internal Medicine 06/03/21 Bettye Gonzales MD MD Internal Medicine 04/10/15 Antony Chakraborty MD [address] [place] [address] 089115 INTERNAL MEDICINE - ENDOCRINOLOGY, DIABETES & METABOLISM 11/13/15 Mateo Cheema MD [address] 793545 Internal Medicine 08/06/16 Ermias Colón MD [address] 524595 Referring Physician Neurology 09/23/16 Bonny Cooley MD [address] [address] Assigned PCP 10/05/15 07/26/20 Pam Hernandez MD [address] [place] [address] MALLY LYNNE [address] Assigned Behavioral Health Provider 05/30/20 08/01/21 Lázaro Horowitz MD [address] [address] Assigned Rheumatology Provider 05/30/20 07/19/20 Jaime Grover MD [address] [place] [address] Assigned Gastroenterology Provider 05/30/20 11/14/21 Toni Sheth MD [address] [address] Assigned Pediatric Specialist Provider 05/30/20 09/07/20 Toni Sheth MD [address] [address] Assigned Surgical Provider 05/30/2006/28 Bertram Elizabeth MD [address] [address] Assigned PCP 07/27/20 04/25/21 Bonny Cooley MD [address] [address] Assigned PCP 04/26/21 08/15/21 Bertram Elizabeth MD [address] [address] Assigned PCP 08/16/21 10/24/21 Alex Johnson MD [address] [place] [address] Assigned Rheumatology Provider 10/18/21 04/15/23 Bonny Cooley MD [address] [address] Assigned PCP 10/25/21 04/02/22 Bertram Elizabeth MD [address] [address] Assigned PCP 04/03/22 07/23/22 Bertram Elizabeth MD [address] [address] Assigned PCP 10/02/22 04/29/23 documented as of this encounter
--- OUTSIDE RECORDS SUMMARY | 2024-06-05 20:28 | XMS_ITS | Encounter Summary ---
Author Organization [facility] Address [address] [place] [address] Care Team Providers Care Manager Transfer Name Role Phone Bettye Gonzales MD Unavailable + Bonny Cooley MD Primary Care Provider [phone] Antony Chakraborty MD Unavailable Mateo Cheema MD Unavailable [phone] Ermias Colón MD Unavailable Bonny Cooley MD Unavailable [phone] Bonny Cooley MD Unavailable [phone] Pam Hernandez MD Unavailable [phone] Lázaro Horowitz MD Unavailable Jaime Grover MD Unavailable Toni Sheth MD Unavailable +[phone] Toni Sheth MD Unavailable [phone] Bertram Elizabeth MD Unavailable [phone] Bonny Cooley MD Unavailable [phone] Aminata Youssef MD Primary Care Provider Bertram Elizabeth MD Unavailable Alex Johnson MD Unavailable Bonny Cooley MD Unavailable [phone] Bertram Elizabeth MD Unavailable Bertram Elizabeth MD Unavailable Reason for Visit * Reason Comments Medication Refill Encounter Details Date Type Department Care Team (Late st Contact Info) Description 10/05/[address] [address] Lázaro Horowitz MD [place] [address] [address] [place], [place] [id number] Medication Refill Social History Tobacco Use Types [...] Sex Assigned at Female 08/28/2018 12:23 AM ROOM SERVICE WAITER/WAITRESS Legal Sex Female 4:46 AM ROOM SERVICE WAITER/WAITRESS Gender Identity Female 08/28/2018 12:23 AM ROOM SERVICE WAITER/WAITRESS Sexual Orientation Straight 10/11/2019 2: 51 PM ROOM SERVICE WAITER/WAITRESS documented as of this encounter Miscellaneous Notes * Telephone Encounter - Deborah Ellison, QUARTER SEAMER - 10/05/2018 7:33 AM CST Refill request [...] 0.90 08/28/2018 No results found for: URIC SERVICE WAITER/WAITRESS documented in this encounter Plan of Treatment Upcoming Encounters Date Type Department Care Team (Late st Contact Info) Description 10/09/2024 2:30 PM ROOM SERVICE WAITER/WAITRESS Office Visit [address] [place] [address] Alex Johnson MD [address] [place] [address] 192585 documented as of this encounter Visit Diagnoses Diagnosis Rheumatoid arthritis of multiple sites without rheumatoid factor (H) Rheumatoid arthritis documented in this encounter Additional Health Concerns Infection Onset Date Last Indicated Resolved Time COVID-19 06/23/2020 06/23/2020 07/14/2020 11:4 0 PM ROOM SERVICE WAITER/WAITRESS Recovered COVID 07/08/2020 07/08/2020 09/21/2020 1 1:39 PM ROOM SERVICE WAITER/WAITRESS Assessment Noted Time PHQ-9 Depression Total Score: 13 018 7:20 AM ROOM SERVICE WAITER/WAITRESS documented as of this encounter Care Teams Manager Transfer Relationship Specialty Start Date End Date Bonny Cooley MD [address] [place] [address] PCP - General Family Practice 09/30/15 06/02/21 Bonny Cooley MD [address] [address] PCP - Assigned PCP 10/05/15 10/10/18 Aminata Youssef MD [facility] [address] [place] [address] PCP - General Internal Medicine 06/03/21 Bettye Gonzales MD Internal Medicine 04/10/15 Antony Chakraborty MD [address] [address] MD INTERNAL MEDICINE - ENDOCRINOLOGY, DIABETES & METABOLISM 11/13/15 Maeto Cheema MD [address] 511435 MD Internal Medicine 08/06/16 Ermias Colón MD [address] [place] [address] 810825 Referring Physician Neurology 09/23/16 Bonny Cooley MD [address] [id number] Assigned PCP 10/05/15 07/26/20 Pam Hernandez MD [address] [facility] [place] [address] Assigned Behavioral Health Provider 05/30/20 08/01/21 Lázaro Horowitz MD [facility] [address] [place], [place] [address] Assigned Rheumatology Provider 05/30/20 07/19/20 Jaime Grover MD [address] [place] [address] 415115 Assigned Gastroenterology Provider 05/30/20 11/14/21 Toni Sheth MD [address] [address] Assigned Pediatric Specialist Provider 05/30/20 09/07/20 Toni Sheth MD [address] [address] Assigned Surgical Provider 05/30/2006/28 Bertram Elizabeth MD [address] [place] [address] Assigned PCP 07/27/20 04/25/21 Bonny Cooley MD [address] [place] [address] Assigned PCP 04/26/21 08/15/21 Bertram Elizabeth MD [address] [place] [address] Assigned PCP 08/16/21 10/24/21 Alex Johnson MD [address] [place] [address] Assigned Rheumatology Provider 10/18/21 04/15/23 Bonny Cooley MD [address] [place] [address] Assigned PCP 10/25/21 04/02/22 Bertram Elizabeth MD [address] [address] Assigned PCP 04/03/22 07/23/22 Bertram Elizabeth MD [address] [place] [address] Assigned PCP 10/02/22 04/29/23 documented as of this encounter
--- OUTSIDE RECORDS SUMMARY | 2024-06-05 20:28 | XMS_ITS | Encounter Summary ---
Author Organization [facility] Address [address] [place] [address] Care Team Providers Care Assistant Professor Of Mathematics Name Role Phone Salazar Bettye Johnson MD Unavailable + Bonny Cooley MD Primary Care Provider Antony Chakraborty MD Unavailable Mateo Cheema MD Unavailable Ermias Colón MD Unavailable Bonny Cooley MD Unavailable [phone] Pam Hernandez MD Unavailable [phone] Lázaro Horowitz MD Unavailable Jaime Grover MD Unavailable Toni Sheth MD Unavailable [phone] Toni Sheth MD Unavailable [phone] Bertram Elizabeth MD Unavailable Bonny Cooley MD Unavailable [phone] Aminata Youssef MD Primary Care Provider Bertram Elizabeth MD Unavailable Alex Johnson MD Unavailable [phone] Bonny Cooely MD Unavailable [phone] Bertram Elizabeth MD Unavailable [phone] Bertram Elizabeth MD Unavailable Encounter Details Date Type Department Care Team (Late st Contact Info) Description 06/26/2020 MyC Medical Advice [facility] [address] [place] [address] Jaime Grover MD [address] [place] [address] Social History Tobacco Use Types Packs/Day Years Used Date Smoking Tobacco: Former Cigarettes 2 3 0 04/23/1976 - 12/17/1977 Smokeless Tobacco: Never Alcohol Use Standard Drinks/Week Comments No 0 (1 standard drink = 0.6 oz pur e alcohol) PHQ-2 Answer Date Recorded PHQ-2 Score 4 01/31/2020 Comments No Sex and Gender Information Value Date Recorded Sex Assigned at Female 08/28/2018 12:23 AM HR SPECIALIST Legal Sex Female 4:46 AM HR SPECIALIST Gender Identity Female 08/28/2018 12:23 AM HR SPECIALIST Sexual Orientation Straight 10/11/2019 2: 51 PM HR SPECIALIST COVID-19 Exposure Response Date Recorded In the last month, have you been in contact with someone who was confirmed or suspected to have Coronavirus / COVID-19? No / Unsure 06/23/2020 10:33 AM HR SPECIALIST documented as of this encounter Plan of Treatment Upcoming Encounters Date Type Department Care Team (Late st Contact Info) Description 10/09/2024 2:30 PM HR SPECIALIST Office Visit [address] [address] Alex Johnson MD [address] [place] [address] documented as of this encounter Visit Diagnoses Not on filedocumented in this encounter Additional Health Concerns Infection Onset Date Last Indicated Resolved Time COVID-19 06/23/2020 06/23/2020 07/14/2020 11:4 0 PM HR SPECIALIST Recovered COVID 07/08/2020 07/08/2020 09/21/2020 1 1:39 PM HR SPECIALIST Assessment Noted Time PHQ-9 Depression Total Score: 11 01/30/ 020 2:18 PM CDT documented as of this encounter Care Teams Assistant Professor Of Mathematics Relationship Specialty Start Date End Date Bonny Cooley MD [address] [place] [address] PCP - General Family Practice 09/30/15 06/02/21 Aminata Youssef MD [facility] [address] [place] [address] PCP - General Internal Medicine 06/03/21 Bettye Gonzales MD MD Internal Medicine 04/10/15 Antony Chakraborty MD [address] [phone] INTERNAL MEDICINE - ENDOCRINOLOGY, DIABETES & METABOLISM 11/13/15 Mateo Cheema MD [address] 664025 Internal Medicine 08/06/16 Ermias Colón MD [address] 062565 Referring Physician Neurology 09/23/16 Bonny Cooley MD [address] [address] Assigned PCP 10/05/15 07/26/20 Pam Hernandez MD [address] [place] [address] [place] [address] Assigned Behavioral Health Provider 05/30/20 08/01/21 Lázaro Horowitz MD [address] [address] Assigned Rheumatology Provider 05/30/20 07/19/20 Jaime Grover MD [address] [place] [address] Assigned Gastroenterology Provider 05/30/20 11/14/21 Toni Sheth MD [address] [address] Assigned Pediatric Specialist Provider 05/30/20 09/07/20 Toni Sheth MD [address] [address] Assigned Surgical Provider 05/30/2006/28 Bertram Elizabeth MD [address] [address] Assigned PCP 07/27/20 04/25/21 Bonny Cooley MD [address] [address] Assigned PCP 04/26/21 08/15/21 Bertram Elizabeth MD [address] [address] Assigned PCP 08/16/21 10/24/21 Alex Johnson MD [address] [place] [address] Assigned Rheumatology Provider 10/18/21 04/15/23 Bonny Cooley MD [address] [address] Assigned PCP 10/25/21 04/02/22 Bertram Elizabeth MD [address] [address] Assigned PCP 04/03/22 07/23/22 Bertram Elizabeth MD [address] [address] Assigned PCP 10/02/22 04/29/23 documented as of this encounter
--- OUTSIDE RECORDS SUMMARY | 2024-06-05 20:28 | XMS_ITS | Encounter Summary ---
Author Organization [facility] Address [address] [place] [address] Care Team Providers Care After School Tutor Name Role Phone Salazar Bettye Johnson MD Unavailable + Bonny Cooley MD Primary Care Provider Antony Chakraborty MD Unavailable Mateo Cheema MD Unavailable Ermias Colón MD Unavailable Bonny Cooley MD Unavailable [phone] Pam Hernandez MD Unavailable [phone] Lázaro Horowitz MD Unavailable Jaime Grover MD Unavailable Toni Sheth MD Unavailable [phone] Toni Sheth MD Unavailable [phone] Bertram Elizabeth MD Unavailable Bonny Cooley MD Unavailable [phone] Aminata Youssef MD Primary Care Provider Bertram Elizabeth MD Unavailable Alex Johnson MD Unavailable Bonny Cooley MD Unavailable [phone] Bertram Elizabeth MD Unavailable Bertram Elizabeth MD Unavailable Encounter Details Date Type Department Care Team (Late st Contact Info) Description 07/02/2020 MyC Medical Advice [facility] 5th [place] [address] Adriane Parish RN Social History [...] Sex Assigned at Female 08/28/2018 12:23 AM LUMBER PILER OPERATOR Legal Sex Female 4:46 AM LUMBER PILER OPERATOR Gender Identity Female 08/28/2018 12:23 AM LUMBER PILER OPERATOR Sexual Orientation Straight 10/11/2019 2: 51 PM LUMBER PILER OPERATOR COVID-19 Exposure Response Date Recorded In the last month, have you been in contact with someone who was confirmed or suspected to have Coronavirus / COVID-19? No / Unsure 06/23/2020 10:33 AM LUMBER PILER OPERATOR documented as of this encounter Plan of Treatment Upcoming Encounters Date Type Department Care Team (Late st Contact Info) Description 10/09/2024 2:30 PM LUMBER PILER OPERATOR Office Visit [address] [address] Alex Johnson MD [address] [place] [address] documented as of this encounter Visit Diagnoses Not on filedocumented in this encounter Additional Health Concerns Infection Onset Date Last Indicated Resolved Time COVID-19 06/23/2020 06/23/2020 07/14/2020 11:4 0 PM LUMBER PILER OPERATOR Recovered COVID 07/08/2020 07/08/2020 09/21/2020 1 1:39 PM LUMBER PILER OPERATOR Assessment Noted Time PHQ-9 Depression Total Score: 11 020 2:18 PM CDT documented as of this encounter Care Teams After School Tutor Relationship Specialty Start Date End Date Bonny Cooley MD [address] [place] [address] PCP - General Family Practice 09/30/15 06/02/21 Aminata Youssef MD [facility] [address] [place] [address] PCP - General Internal Medicine 06/03/21 Bettye Gonzales MD MD Internal Medicine 04/10/15 Antony Chakraborty MD [address] [address] MD INTERNAL MEDICINE - ENDOCRINOLOGY, DIABETES & METABOLISM 11/13/15 Mateo Cheema MD [address] [place] [address] 780565 Internal Medicine 08/06/16 Ermias Colón MD [address] 099695 Referring Physician Neurology 09/23/16 Bonny Cooley MD [address] [address] Assigned PCP 10/05/15 07/26/20 Pam Hernandez MD [address] [place] [address] [place] [address] Assigned Behavioral Health Provider 05/30/20 08/01/21 Lázaro Horowitz MD [place] [address] [address] [place] [address] Assigned Rheumatology Provider 05/30/20 07/19/20 Jaime Grover MD [address] [place] [address] Assigned Gastroenterology Provider 05/30/20 11/14/21 Toni Sheth MD [address] [address] Assigned Pediatric Specialist Provider 05/30/20 09/07/20 Toni Sheth MD [address] [address] Assigned Surgical Provider 05/30/2006/28 Bertram Elizabeth MD [address] [place] [address] Assigned PCP 07/27/20 04/25/21 Bnony Cooley MD [address] [place] [address] Assigned PCP 04/26/21 08/15/21 Bertram Elizabeth MD [address] [place] [address] Assigned PCP 08/16/21 10/24/21 Alex Johnson MD [address] [place] [address] Assigned Rheumatology Provider 10/18/21 04/15/23 Bonny Cooley MD [address] [place] [address] Assigned PCP 10/25/21 04/02/22 Bertram Elizabeth MD [address] [place] [address] Assigned PCP 04/03/22 07/23/22 Bertram Elizabeth MD [address] [place] [address] Assigned PCP 10/02/22 04/29/23 documented as of this encounter
--- OUTSIDE RECORDS SUMMARY | 2024-06-05 20:28 | XMS_ITS | Encounter Summary ---
Author Organization [facility] Address [address] [place] [address] Care Team Providers Care Fractionation Supervisor Name Role Phone Salazar Bettye Johnson MD Unavailable + Bonny Cooley MD Primary Care Provider Antony Chakraborty MD Unavailable Mateo Cheema MD Unavailable [phone] Ermias Colón MD Unavailable Bonny Cooley MD Unavailable [phone] Pam Hernandez MD Unavailable [phone] Lázaro Horowitz MD Unavailable Jaime Grover MD Unavailable Toni Sheth MD Unavailable [phone] Toni Sheth MD Unavailable [phone] Bertram Elizabeth MD Unavailable Bonny Cooley MD Unavailable [phone] Aminata Youssef MD Primary Care Provider [phone] Bertram Elizabeth MD Unavailable Alex Johnson MD Unavailable Bonny Cooley MD Unavailable [phone] Bertram Elizabeth MD Unavailable [phone] Bertram Elizabeth MD Unavailable [phone] Encounter Details Date Type Department Care Team (Late st Contact Info) Description 07/02/2020 MyC Medical Advice [facility] [address] [place] [address] Jaime Grover MD [address] [place] [address] Social History Tobacco Use Types Packs/Day Years Used Date Smoking Tobacco: Former Cigarettes 2 3 0 04/23/1976 - 12/17/1977 Smokeless Tobacco: Never Alcohol Use Standard Drinks/Week Comments No 0 (1 standard drink = 0.6 oz pur e alcohol) PHQ-2 Answer Date Recorded PHQ-2 Score 4 01/31/2020 Comments No Sex and Gender Information Value Date Recorded Sex Assigned at Female 08/28/2018 12:23 AM SALES REPRESENTATIVE PRINTING SUPPLIES Legal Sex Female 4:46 AM SALES REPRESENTATIVE PRINTING SUPPLIES Gender Identity Female 08/28/2018 12:23 AM SALES REPRESENTATIVE PRINTING SUPPLIES Sexual Orientation Straight 10/11/2019 2: 51 PM SALES REPRESENTATIVE PRINTING SUPPLIES COVID-19 Exposure Response Date Recorded In the last month, have you been in contact with someone who was confirmed or suspected to have Coronavirus / COVID-19? No / Unsure 06/23/2020 10:33 AM SALES REPRESENTATIVE PRINTING SUPPLIES documented as of this encounter Plan of Treatment Upcoming Encounters Date Type Department Care Team (Late st Contact Info) Description 10/09/2024 2:30 PM SALES REPRESENTATIVE PRINTING SUPPLIES Office Visit [address] [address] Alex Johnson MD [address] [place] [address] documented as of this encounter Visit Diagnoses Not on filedocumented in this encounter Additional Health Concerns Infection Onset Date Last Indicated Resolved Time COVID-19 06/23/2020 06/23/2020 07/14/2020 11:4 0 PM SALES REPRESENTATIVE PRINTING SUPPLIES Recovered COVID 07/08/2020 07/08/2020 09/21/2020 1 1:39 PM SALES REPRESENTATIVE PRINTING SUPPLIES Assessment Noted Time PHQ-9 Depression Total Score: 11 01/30/ 020 2:18 PM CDT documented as of this encounter Care Teams Fractionation Supervisor Relationship Specialty Start Date End Date Bonny Cooley MD [address] [place] [address] PCP - General Family Practice 09/30/15 06/02/21 Aminata Youssef MD [facility] [address] [place] [address] PCP - General Internal Medicine 06/03/21 Bettye Gonzales MD MD Internal Medicine 04/10/15 Antony Chakraborty MD [address] [address] INTERNAL MEDICINE - ENDOCRINOLOGY, DIABETES & METABOLISM 11/13/15 Mateo Cheema MD [address] 199365 Internal Medicine 08/06/16 Ermias Colón MD [address] [address] Referring Physician Neurology 09/23/16 Bonny Cooley MD [address] [address] Assigned PCP 10/05/15 07/26/20 Pam Hernandez MD [address] [place] [address] [place] [address] Assigned Behavioral Health Provider 05/30/20 08/01/21 Lázaro Horowitz MD [address] [address] Assigned Rheumatology Provider 05/30/20 07/19/20 Jaime Grover MD [address] [place] [address] Assigned Gastroenterology Provider 05/30/20 11/14/21 Toni Sheth MD [address] [address] Assigned Pediatric Specialist Provider 05/30/20 09/07/20 Toni Sheth MD [address] [address] Assigned Surgical Provider 05/30/2006/28 Bertram Elizabeth MD [address] [address] Assigned PCP 07/27/20 04/25/21 Bonny Cooley MD [address] [address] Assigned PCP 04/26/21 08/15/21 Bertram Elizabeth MD [address] [address] Assigned PCP 08/16/21 10/24/21 Alex Johnson MD [address] [place] [address] Assigned Rheumatology Provider 10/18/21 04/15/23 Bonny Cooley MD [address] [address] Assigned PCP 10/25/21 04/02/22 Bertram Elizabeth MD [address] [address] Assigned PCP 04/03/22 07/23/22 Bertram Elizabeth MD [address] [address] Assigned PCP 10/02/22 04/29/23 documented as of this encounter
--- OUTSIDE RECORDS SUMMARY | 2024-06-05 20:28 | XMS_ITS | Encounter Summary ---
Author Organization [facility] Address [address] [place] [address] Care Team Providers Care Silver Miner Blasting Name Role Phone Salazar Bettye Johnson MD Unavailable + Bonny Cooley MD Primary Care Provider Antony Chakraborty MD Unavailable Mateo Cheema MD Unavailable Ermias Colón MD Unavailable Bonny Cooley MD Unavailable [phone] Pam eHrnandez MD Unavailable [phone] Lázaro Horowitz MD Unavailable Jaime Grover MD Unavailable Toni Sheth MD Unavailable [phone] Toni Sheth MD Unavailable [phone] Bertram Elizabeth MD Unavailable Bonny Cooley MD Unavailable [phone] Amianta Youssef MD Primary Care Provider Bertram Elizabeth MD Unavailable Alex Johnson MD Unavailable Bonny Cooley MD Unavailable [phone] Bertram Elizabeth MD Unavailable [phone] Bertram Elizabeth MD Unavailable Encounter Details Date Type Department Care Team (Late st Contact Info) Description 11/26/2019 MyC Medical Advice [facility] Rheumatology [address] [address] Toni Del Angel MD [facility] [address] [facility] [address] [place] [address] Social History Tobacco Use Types Packs/Day Years Used Date Smoking Tobacco: Former Cigarettes 2 3 0 04/23/1976 - 12/17/1977 Smokeless Tobacco: Never Alcohol Use Standard Drinks/Week Comments No 0 (1 standard drink = 0.6 oz pur e alcohol) PHQ-2 Answer Date Recorded PHQ-2 Score 0 10/18/2019 Comments No Sex and Gender Information Value Date Recorded Sex Assigned at Female 08/28/2018 12:23 AM IMMIGRATION ATTORNEY Legal Sex Female 4:46 AM IMMIGRATION ATTORNEY Gender Identity Female 08/28/2018 12:23 AM IMMIGRATION ATTORNEY Sexual Orientation Straight 10/11/2019 2: 51 PM IMMIGRATION ATTORNEY COVID-19 Exposure Response Date Recorded In the last month, have you been in contact with someone who was confirmed or suspected to have Coronavirus / COVID-19? No / Unsure 11/23/2019 2:47 PM CDT documented as of this encounter Plan of Treatment Upcoming Encounters Date Type Department Care Team (Late st Contact Info) Description 10/09/2024 2:30 PM IMMIGRATION ATTORNEY Office Visit [address] [address] Alex Johnson MD [address] [place] [address] 88 [place] [address] documented as of this encounter Visit Diagnoses Not on filedocumented in this encounter Additional Health Concerns Infection Onset Date Last Indicated Resolved Time COVID-19 06/23/2020 06/23/2020 07/14/2020 11:4 0 PM IMMIGRATION ATTORNEY Recovered COVID 07/08/2020 07/08/2020 09/21/2020 1 1:39 PM IMMIGRATION ATTORNEY Assessment Noted Time PHQ-9 Depression Total Score: 15 020 2:41 PM IMMIGRATION ATTORNEY documented as of this encounter Care Teams Silver Miner Blasting Relationship Specialty Start Date End Date Bonny Cooley MD [address] [place] [address] PCP - General Family Practice 09/30/15 06/02/21 Aminata Youssef MD [facility] & [address] [address] PCP - General Internal Medicine 06/03/21 Bettye Gonzales MD MD Internal Medicine 04/10/15 Antony Chakraborty MD [address] [place] [address] MD INTERNAL MEDICINE - ENDOCRINOLOGY, DIABETES & METABOLISM 11/13/15 Mateo Cheema MD [address] [place] [address] Internal Medicine 08/06/16 Ermias Colón MD [address] 596975 Referring Physician Neurology 09/23/16 Bonny Cooley MD [address] [address] Assigned PCP 10/05/15 07/26/20 Pam Hernandez MD 1 [facility] [place] [address] Assigned Behavioral Health Provider 05/30/20 08/01/21 Lázaro Horowitz MD [facility] [address] [place] [address] Assigned Rheumatology Provider 05/30/20 07/19/20 Jaime Grover MD [address] [place] [address] Assigned Gastroenterology Provider 05/30/20 11/14/21 Toni Sheth MD [address] [address] Assigned Pediatric Specialist Provider 05/30/20 09/07/20 Toni Sheth MD [address] [address] Assigned Surgical Provider 05/30/2006/28 Bertram Elizabeth MD 0 [facility] 200 [place] [address] Assigned PCP 07/27/20 04/25/21 Bonny Cooley MD 0 [facility] 200 [place] [address] Assigned PCP 04/26/21 08/15/21 Bertram Elizabeth MD [address] [address] Assigned PCP 08/16/21 10/24/21 Alex Johnson MD [address] [place] [address] Assigned Rheumatology Provider 10/18/21 04/15/23 Bonny Cooley MD [address] [address] Assigned PCP 10/25/21 04/02/22 Bertram Elizabeth MD [address] [address] Assigned PCP 04/03/22 07/23/22 Bertram Elizabeth MD [address] [address] Assigned PCP 10/02/22 04/29/23 documented as of this encounter
--- OUTSIDE RECORDS SUMMARY | 2024-06-05 20:28 | XMS_ITS | Encounter Summary ---
Author Organization [facility] Address [address] [place] [address] Care Team Providers Care Reference Data Expert Name Role Phone Salazar Bettye Johnson MD Unavailable + Bonny Cooley MD Primary Care Provider Antony Chakraborty MD Unavailable Mateo Cheema MD Unavailable [phone] Ermias Colón MD Unavailable Bonny Cooley MD Unavailable [phone] Pam Hernandez MD Unavailable [phone] Lázaro Horowitz MD Unavailable Jaime Grover MD Unavailable Toni Sheth MD Unavailable +[phone] Toni Sheth MD Unavailable [phone] Bertram Elizabeth MD Unavailable Bonny Cooley MD Unavailable [phone] Aminata Youssef MD Primary Care Provider Bertram Elizabeth MD Unavailable [phone] Alex Johnson MD Unavailable Bonny Cooley MD Unavailable [phone] Bertram Elizabeth MD Unavailable [phone] Bertram Elizabeth MD Unavailable Encounter Details Date Type Department Care Team (Late st Contact Info) Description 06/23/2020 MyC Medical Advice [facility] [address] [place] [address] Jaime Grover MD [address] [place] [address] Social History Tobacco Use Types Packs/Day [...] Assigned at Female 08/28/2018 12:23 AM VP CORPORATE DEVELOPMENT Legal Sex Female 4:46 AM VP CORPORATE DEVELOPMENT Gender Identity Female 08/28/2018 12:23 AM VP CORPORATE DEVELOPMENT Sexual Orientation Straight 10/11/2019 2: 51 PM VP CORPORATE DEVELOPMENT COVID-19 Exposure Response Date Recorded In the last month, have you been in contact with someone who was confirmed or suspected to have Coronavirus / COVID-19? No / Unsure 06/23/2020 10:33 AM VP CORPORATE DEVELOPMENT documented as of this encounter Plan of Treatment Upcoming Encounters Date Type Department Care Team (Late st Contact Info) Description 10/09/2024 2:30 PM VP CORPORATE DEVELOPMENT Office Visit [address] [address] Alex Johnson MD [address] [place] [address] documented as of this encounter Visit Diagnoses Not on filedocumented in this encounter Additional Health Concerns Infection Onset Date Last Indicated Resolved Time COVID-19 06/23/2020 06/23/2020 07/14/2020 11:4 0 PM VP CORPORATE DEVELOPMENT Recovered COVID 07/08/2020 07/08/2020 09/21/2020 1 1:39 PM VP CORPORATE DEVELOPMENT Assessment Noted Time PHQ-9 Depression Total Score: 11 01/30/ 020 2:18 PM CDT documented as of this encounter Care Teams Reference Data Expert Relationship Specialty Start Date End Date Bonny Cooley MD [address] [place] [address] PCP - General Family Practice 09/30/15 06/02/[address] [facility] [address] [place] [address] PCP - General Internal Medicine 06/03/21 Bettye Gonzales MD MD Internal Medicine 04/10/15 Antony Chakraborty MD [address] 010975 INTERNAL MEDICINE - ENDOCRINOLOGY, DIABETES & METABOLISM 11/13/15 Mateo Cheema MD [address] 199285 Internal Medicine 08/06/16 Ermias Colón MD [address] 497[address] Referring Physician Neurology 09/23/16 Bonny Cooley MD [address] [address] Assigned PCP 10/05/15 07/26/20 Pam Hernandez MD [address] [place] [address] MALLY LYNNE [address] Assigned Behavioral Health Provider 05/30/20 08/01/21 Lázaro Horowitz MD [address] [address] Assigned Rheumatology Provider 05/30/20 07/19/20 Jaime Grover MD [address] [place] [address] Assigned Gastroenterology Provider 05/30/20 11/14/21 Toni Sheth MD [address] [address] Assigned Pediatric Specialist Provider 05/30/20 09/07/20 Toni Sheth MD [address] [address] Assigned Surgical Provider 05/30/2006/28 Bertram Elizabeth MD [address] [address] Assigned PCP 07/27/20 04/25/21 Bonny Cooley MD [address] [address] Assigned PCP 04/26/21 08/15/21 Bertram Elizabeth MD [address] [address] Assigned PCP 08/16/21 10/24/21 Alex Johnson MD [address] [place] [address] Assigned Rheumatology Provider 10/18/21 04/15/23 Bonny Cooley MD [address] [address] Assigned PCP 10/25/21 04/02/22 Bertram Elizabeth MD [address] [address] Assigned PCP 04/03/22 07/23/22 Bertram Elizabeth MD [address] [address] Assigned PCP 10/02/22 04/29/23 documented as of this encounter
--- OUTSIDE RECORDS SUMMARY | 2024-06-05 20:28 | XMS_ITS | Encounter Summary ---
Author Organization [facility] Address [address] [place] [address] Care Team Providers Care Adult And Pediatric Neurologist Name Role Phone Salazar Bettye Johnson MD Unavailable + Bonny Cooley MD Primary Care Provider [phone] Antony Chakraborty MD Unavailable [phone] Mateo Cheema MD Unavailable Ermias Colón MD Unavailable Bonny Cooley MD Unavailable [phone] Pam Hernandez MD Unavailable [phone] Lázaro Horowitz MD Unavailable Jaime Grover MD Unavailable [phone] Toni Sheth MD Unavailable [phone] Toni Sheth MD Unavailable [phone] Bertram Elizabeht MD Unavailable Bonny Cooley MD Unavailable [phone] Aminata Youssef MD Primary Care Provider Bertram Elizabeth MD Unavailable Alex Johnson MD Unavailable Bonny Cooley MD Unavailable [phone] Bertram Elizabeth MD Unavailable [phone] Bertram Elizabeth MD Unavailable Encounter Details Date Type Department Care Team (Late st Contact Info) Description 06/25/2020 MyC Medical Advice [facility] Gastro[facility]ology Clinic [address] [place] [address] Jaime Grover MD [address] [place] [address] Social History Tobacco Use Types Packs/Day [...] Assigned at Female 08/28/2018 12:23 AM MANAGER MARKET Legal Sex Female 4:46 AM MANAGER MARKET Gender Identity Female 08/28/2018 12:23 AM MANAGER MARKET Sexual Orientation Straight 10/11/2019 2: 51 PM MANAGER MARKET COVID-19 Exposure Response Date Recorded In the last month, have you been in contact with someone who was confirmed or suspected to have Coronavirus / COVID-19? No / Unsure 06/23/2020 10:33 AM MANAGER MARKET documented as of this encounter Plan of Treatment Upcoming Encounters Date Type Department Care Team (Late st Contact Info) Description 10/09/2024 2:30 PM MANAGER MARKET Office Visit [address] [address] Alex Johnson MD [address] [place] [address] documented as of this encounter Visit Diagnoses Not on filedocumented in this encounter Additional Health Concerns Infection Onset Date Last Indicated Resolved Time COVID-19 06/23/2020 06/23/2020 07/14/2020 11:4 0 PM MANAGER MARKET Recovered COVID 07/08/2020 07/08/2020 09/21/2020 1 1:39 PM MANAGER MARKET Assessment Noted Time PHQ-9 Depression Total Score: 11 01/30/ 020 2:18 PM CDT documented as of this encounter Care Teams Adult And Pediatric Neurologist Relationship Specialty Start Date End Date Bonny Cooley MD [address] [place] [address] PCP - General Family Practice 09/30/15 06/02/21 Aminata Youssef MD [facility] [address] [place] [address] PCP - General Internal Medicine 06/03/21 Bettye Gonzales MD MD Internal Medicine 04/10/15 Antony Chakraborty MD [address] 226565 INTERNAL MEDICINE - ENDOCRINOLOGY, DIABETES & METABOLISM 11/13/15 Mateo Cheema MD [address] 437475 Internal Medicine 08/06/16 Ermias Colón MD [address] 977595 Referring Physician Neurology 09/23/16 Bonny Cooley MD [address] [address] Assigned PCP 10/05/15 07/26/20 Pam Hernandez MD [address] [place] [address] MALLY LYNNE [address] Assigned Behavioral Health Provider 05/30/20 08/01/21 Lázaro Horowitz MD [address] [address] Assigned Rheumatology Provider 05/30/20 07/19/20 Jaime Grover MD [address] [place] [address] Assigned Gastroenterology Provider 05/30/20 11/14/21 Toni Sheth MD [address] [address] Assigned Pediatric Specialist Provider 05/30/20 09/07/20 Toni Sheth MD [address] [address] Assigned Surgical Provider 05/30/2006/28 Bertram Elizabeth MD [address] [address] Assigned PCP 07/27/20 04/25/21 Bonny Cooley MD [address] [address] Assigned PCP 04/26/21 08/15/21 Bertram Elizabeth MD [address] [address] Assigned PCP 08/16/21 10/24/21 Alex Johnson MD [address] [place] [address] Assigned Rheumatology Provider 10/18/21 04/15/23 Bonny Cooley MD [address] [address] Assigned PCP 10/25/21 04/02/22 Bertram Elizabeth MD [address] [address] Assigned PCP 04/03/22 07/23/22 Bertram Elizabeth MD [address] [address] Assigned PCP 10/02/22 04/29/23 documented as of this encounter
--- OUTSIDE RECORDS SUMMARY | 2024-06-05 20:28 | XMS_ITS | Encounter Summary ---
Author Organization [facility] Address [address] [place] [address] Care Team Providers Care Professor In Family Studies Name Role Phone Salazar Bettye Johnson MD Unavailable + Bonny Cooley MD Primary Care Provider Antony Chakraborty MD Unavailable Mateo Cheema MD Unavailable Ermias Colón MD Unavailable Bonny Cooley MD Unavailable Pam Hernandez MD Unavailable [phone] Lázaro Horowitz MD Unavailable Jaime Grover MD Unavailable Toni Sheth MD Unavailable [phone] Toni Sheth MD Unavailable [phone] Bertram Elizabeth MD Unavailable [phone] Bonny Cooley MD Unavailable [phone] Aminata Youssef MD Primary Care Provider Bertram Elizabeth MD Unavailable [phone] Alex Johnson MD Unavailable [phone] Bonny Cooley MD Unavailable [phone] Bertram Elizabeth MD Unavailable Bertram Elizabeth MD Unavailable [phone] Encounter Details Date Type Department Care Team (Late st Contact Info) Description 06/23/2020 [facility] [address] [place] [address] Denia Allen Social History Tobacco Use [...] Sex Assigned at Female 08/28/2018 12:23 AM SUCTION DRUM DRIER OPERATOR Legal Sex Female 4:46 AM SUCTION DRUM DRIER OPERATOR Gender Identity Female 08/28/2018 12:23 AM SUCTION DRUM DRIER OPERATOR Sexual Orientation Straight 10/11/2019 2: 51 PM SUCTION DRUM DRIER OPERATOR COVID-19 Exposure Response Date Recorded In the last month, have you been in contact with someone who was confirmed or suspected to have Coronavirus / COVID-19? No / Unsure 06/23/2020 10:33 AM SUCTION DRUM DRIER OPERATOR documented as of this encounter Plan of Treatment Upcoming Encounters Date Type Department Care Team (Late st Contact Info) Description 10/09/2024 2:30 PM SUCTION DRUM DRIER OPERATOR Office Visit [address] [address] Alex Johnson MD [address] [place] [address] documented as of this encounter Visit Diagnoses Not on filedocumented in this encounter Additional Health Concerns Infection Onset Date Last Indicated Resolved Time COVID-19 06/23/2020 06/23/2020 07/14/2020 11:4 0 PM SUCTION DRUM DRIER OPERATOR Recovered COVID 07/08/2020 07/08/2020 09/21/2020 1 1:39 PM SUCTION DRUM DRIER OPERATOR Assessment Noted Time PHQ-9 Depression Total Score: 11 020 2:18 PM CDT documented as of this encounter Care Teams Professor In Family Studies Relationship Specialty Start Date End Date Bonny Cooley MD [address] [place] [address] PCP - General Family Practice 09/30/15 06/02/21 Aminata Youssef MD [facility] [address] [place] [address] PCP - General Internal Medicine 06/03/21 Bettye Gonzales MD Internal Medicine 04/10/15 Antony Chakraborty MD [address] 173985 MD INTERNAL MEDICINE - ENDOCRINOLOGY, DIABETES & METABOLISM 11/13/15 Mateo Cheema MD [address] 621895 Internal Medicine 08/06/16 Ermias Colón MD [address] 745445 Referring Physician Neurology 09/23/16 Bonny Cooley MD [address] [address] Assigned PCP 10/05/15 07/26/20 Pam Hernandez MD [address] [place] [address] [place] [address] Assigned Behavioral Health Provider 05/30/20 08/01/21 Lázaro Horowitz MD [address] [address] Assigned Rheumatology Provider 05/30/20 07/19/20 Jaime Grover MD [address] [place] [address] Assigned Gastroenterology Provider 05/30/20 11/14/21 Toni Sheth MD [address] [address] Assigned Pediatric Specialist Provider 05/30/20 09/07/20 Toni Sheth MD [address] [address] Assigned Surgical Provider 05/30/2006/28 Bertram Elizabeth MD [address] [place] [address] Assigned PCP 07/27/20 04/25/21 Bonny Cooley MD [address] [place] [address] Assigned PCP 04/26/21 08/15/21 Bertram Elizabeth MD [address] [place] [address] Assigned PCP 08/16/21 10/24/21 Alex Johnson MD [address] [place] [address], [place] [address] Assigned Rheumatology Provider 10/18/21 04/15/23 Bonny Cooley MD [address] [address] Assigned PCP 10/25/21 04/02/22 Bertram Elizabeth MD [address] [address] Assigned PCP 04/03/22 07/23/22 Bertram Elizabeth MD [address] [address] Assigned PCP 10/02/22 04/29/23 documented as of this encounter
--- OUTSIDE RECORDS SUMMARY | 2024-06-05 20:28 | XMS_ITS | Encounter Summary ---
Author Organization [facility] Address [address] [place] [address] Care Team Providers Care Fiberglasser Name Role Phone Salazar Bettye Johnson MD Unavailable + Bonny Cooley MD Primary Care Provider [phone] Antony Chakraborty MD Unavailable Mateo Cheema MD Unavailable Ermias Colón MD Unavailable Bonny Cooley MD Unavailable [phone] Pam Hernandez MD Unavailable [phone] Lázaro Horowitz MD Unavailable Jaime Grover MD Unavailable Toni Sheth MD Unavailable [phone] Toni Sheth MD Unavailable [phone] Bertram Elizabeth MD Unavailable Bonny Cooley MD Unavailable [phone] Aminata Youssef MD Primary Care Provider Bertram Elizabeth MD Unavailable Alex Johnson MD Unavailable Bonny Cooley MD Unavailable [phone] Bertram Elizabeth MD Unavailable [phone] Bertram Elizabeth MD Unavailable Encounter Details Date Type Department Care Team (Late st Contact Info) Description 06/09/2020 MyC Medical Advice [facility] Gastroenterology Clinic [address] [place] [address] Jaime Grover MD [address] [place] [address] Social History Tobacco Use Types Packs/Day Years Used Date Smoking Tobacco: Former Cigarettes 2 3 0 04/23/1976 - 12/17/1977 Smokeless Tobacco: Never Alcohol Use Standard Drinks/Week Comments No 0 (1 standard drink = 0.6 oz pur e alcohol) PHQ-2 Answer Date Recorded PHQ-2 Score 4 01/31/2020 Comments No Sex and Gender Information Value Date Recorded Sex Assigned at Female 08/28/2018 12:23 AM PANEL GLUER Legal Sex Female 4:46 AM PANEL GLUER Gender Identity Female 08/28/2018 12:23 AM PANEL GLUER Sexual Orientation Straight 10/11/2019 2: 51 PM PANEL GLUER COVID-19 Exposure Response Date Recorded In the last month, have you been in contact with someone who was confirmed or suspected to have Coronavirus / COVID-19? No / Unsure 06/06/2020 10:42 AM CDT documented as of this encounter Plan of Treatment Upcoming Encounters Date Type Department Care Team (Late st Contact Info) Description 10/09/2024 2:30 PM PANEL GLUER Office Visit [address] [address] Alex Johnson MD [address] [place] [address] documented as of this encounter Visit Diagnoses Not on filedocumented in this encounter Additional Health Concerns Infection Onset Date Last Indicated Resolved Time COVID-19 06/23/2020 06/23/2020 07/14/2020 11:4 0 PM PANEL GLUER Recovered COVID 07/08/2020 07/08/2020 09/21/2020 1 1:39 PM PANEL GLUER Assessment Noted Time PHQ-9 Depression Total Score: 11 01/30/ 020 2:18 PM CDT documented as of this encounter Care Teams Fiberglasser Relationship Specialty Start Date End Date Bonny Cooley MD [address] [place] [address] PCP - General Family Practice 09/30/15 06/02/21 Aminata Youssef MD [facility] & [address] [address] PCP - General Internal Medicine 06/03/21 Bettye Gonzales MD MD Internal Medicine 04/10/15 Antony Chakraborty MD [address] [place] [address]505 INTERNAL MEDICINE - ENDOCRINOLOGY, DIABETES & METABOLISM 11/13/15 Mateo Cheema MD [address] 136945 Internal Medicine 08/06/16 Ermias Colón MD [address] 304985 Referring Physician Neurology 09/23/16 Bonny Cooley MD [address] [address] Assigned PCP 10/05/15 07/26/20 Pam Hernandez MD [address] [place] [address] MALLY LYNNE [address] Assigned Behavioral Health Provider 05/30/20 08/01/21 Lázaro Horowitz MD [address] [address] Assigned Rheumatology Provider 05/30/20 07/19/20 Jaime Grover MD [address] [place] [address] Assigned Gastroenterology Provider 05/30/20 11/14/21 Toni Sheth MD [address] [address] Assigned Pediatric Specialist Provider 05/30/20 09/07/20 Toni Sheth MD [address] [address] Assigned Surgical Provider 05/30/2006/28 Bertram Elizabeth MD [address] [address] Assigned PCP 07/27/20 04/25/21 Bonny Cooley MD [address] [address] Assigned PCP 04/26/21 08/15/21 Bertram Elizabeth MD [address] [address] Assigned PCP 08/16/21 10/24/21 Alex Johnson MD [address] [place] [address] Assigned Rheumatology Provider 10/18/21 04/15/23 Bonny Cooley MD [address] [address] Assigned PCP 10/25/21 04/02/22 Bertram Elizabeth MD [address] [address] Assigned PCP 04/03/22 07/23/22 Bertram Elizabeth MD [address] [address] Assigned PCP 10/02/22 04/29/23 documented as of this encounter
--- OUTSIDE RECORDS SUMMARY | 2024-06-05 20:28 | XMS_ITS | Encounter Summary ---
Author Organization [facility] Address [address] [place] [address] Care Team Providers Care Youth Liaison Officer Name Role Phone Salazar Bettye Johnson MD Unavailable + Bonny Cooley MD Primary Care Provider Antony Chakraborty MD Unavailable Mateo Cheema MD Unavailable Ermias Colón MD Unavailable Bonny Cooley MD Unavailable [phone] Pam Hernandez MD Unavailable [phone] Lázaro Horowitz MD Unavailable Jaime Grover MD Unavailable Toni Sheth MD Unavailable [phone] Toni Sheth MD Unavailable [phone] Bertram Elizabeth MD Unavailable Bonny Cooley MD Unavailable [phone] Aminata Youssef MD Primary Care Provider Bertram Elizabeth MD Unavailable Alex Johnson MD Unavailable Bonny Cooley MD Unavailable [phone] Bertram Elizabeth MD Unavailable [phone] Bertram Elizabeth MD Unavailable Encounter Details Date Type Department Care Team (Late st Contact Info) Description 05/24/2019 MyC Medical Advice [facility] Rhe[facility]ology Clinic [address] [phone] Toni Del Angel MD [address] [place] [address] Social History Tobacco Use Types Packs/Day Years Used Date Smoking Tobacco: Former Cigarettes 2 3 0 04/23/1976 - 12/17/1977 Smokeless Tobacco: Never Alcohol Use Standard Drinks/Week Comments No 0 (1 standard drink = 0.6 oz pur e alcohol) PHQ-2 Answer Date Recorded PHQ-2 Score 4 03/28/2019 Comments No Sex and Gender Information Value Date Recorded Sex Assigned at Female 08/28/2018 12:23 AM LOOM OPERATOR APPRENTICE Legal Sex Female 4:46 AM LOOM OPERATOR APPRENTICE Gender Identity Female 08/28/2018 12:23 AM LOOM OPERATOR APPRENTICE Sexual Orientation Straight 10/11/2019 2: 51 PM LOOM OPERATOR APPRENTICE documented as of this encounter Plan of Treatment Upcoming Encounters Date Type Department Care Team (Late Contact Info) Description 10/09/2024 2:30 PM LOOM OPERATOR APPRENTICE Office Visit [address] [address] Alex Johnson MD [address] [place] [address] documented as of this encounter Visit Diagnoses Not on filedocumented in this encounter Additional Health Concerns Infection Onset Date Last Indicated Resolved Time COVID-19 06/23/2020 06/23/2020 07/14/2020 11:4 0 PM LOOM OPERATOR APPRENTICE Recovered COVID 07/08/2020 07/08/2020 09/21/2020 1 1:39 PM LOOM OPERATOR APPRENTICE Assessment Noted Time PHQ-9 Depression Total Score: 11 019 2:53 PM CDT documented as of this encounter Care Teams Youth Liaison Officer Relationship Specialty Start Date End Date Bonny Cooley MD [address] [place] [address] PCP - General Family Practice 09/30/15 06/02/21 Aminata Youssef MD [facility] [address] [place] [address] PCP - General Internal Medicine 06/03/21 Bettye Gonzales MD Internal Medicine 04/10/15 Antony Chakraborty MD [address] 730605 MD INTERNAL MEDICINE - ENDOCRINOLOGY, DIABETES & METABOLISM 11/13/15 Mateo Cheema MD [address] 384885 Internal Medicine 08/06/16 Ermias Colón MD [address] 063335 Referring Physician Neurology 09/23/16 Bonny Cooley MD [address] [address] Assigned PCP 10/05/15 07/26/20 Pam Hernandez MD [address] [place] [address] [place] [address] Assigned Behavioral Health Provider 05/30/20 08/01/21 Lázaro Horowitz MD [place] [address] [address] [place] [address] Assigned Rheumatology Provider 05/30/20 07/19/20 Jaime Grover MD [address] [place] [address] Assigned Gastroenterology Provider 05/30/20 11/14/21 Toni Sheth MD [address] [address] Assigned Pediatric Specialist Provider 05/30/20 09/07/20 Toni Sheth MD [address] [address] Assigned Surgical Provider 05/30/2006/28 Bertram Elizabeth MD [address] [place] [address] Assigned PCP 07/27/20 04/25/21 Bonny Cooley MD [address] [place] [address] Assigned PCP 04/26/21 08/15/21 Bertram Elizabeth MD [address] [place] [address] Assigned PCP 08/16/21 10/24/21 Alex Johnson MD [address] [place] [address], [place] [address] Assigned Rheumatology Provider 10/18/21 04/15/23 Bonny Cooley MD [address] [place] [address] Assigned PCP 10/25/21 04/02/22 Bertram Elizabeth MD [address] [place] [address] Assigned PCP 04/03/22 07/23/22 Bertram Elizabeth MD [address] [address] Assigned PCP 10/02/22 04/29/23 documented as of this encounter
--- OUTSIDE RECORDS SUMMARY | 2024-06-05 20:29 | XMS_ITS | Encounter Summary ---
Author Organization [place] Address [address] [place] [address] Care Team Providers Care Tank Cooper Name Role Phone Bettye Gonzales MD Unavailable + Bonny Cooley MD Primary Care Provider Antony Chakraborty MD Unavailable Mateo Cheema MD Unavailable [phone] Ermias Colón MD Unavailable Suzanne Fernández RN Unavailable [phone] Bonny Cooley MD Unavailable [phone] Bonny Cooley MD Unavailable [phone] Pam Hernandez MD Unavailable [phone] Lázaro Horowitz MD Unavailable [phone] Jaime Grover MD Unavailable Toni Sheth MD Unavailable [phone] Toni Sheth MD Unavailable [phone] Bertram Elizabeth MD Unavailable Bonny Cooley MD Unavailable [phone] Aminata Youssef MD Primary Care Provider Bertram Elizabeth MD Unavailable Alex Johnson MD Unavailable Bonny Cooley MD Unavailable [phone] Bertram Elizabeth MD Unavailable [phone] Bertram Elizabeth MD Unavailable [phone] Encounter Details Date Type Department Care Team (Late st Contact Info) Description 02/11/[address] [facility] Medical Advice [address] [address] Kathryn Brenner Social History Tobacco Use Types Packs/Day Years Used Date Smoking Tobacco: Former Cigarettes 2 3 0 04/23/1976 - 12/17/1977 Smokeless Tobacco: Never Alcohol Use Standard Drinks/Week Comments No 0 (1 standard drink = 0.6 oz pur e alcohol) Comments No Sex and Gender Information Value Date Recorded Sex Assigned at Female 08/28/2018 12:23 AM LACING CUTTER Legal Sex Female 4:46 AM LACING CUTTER Gender Identity Female 08/28/2018 12:23 AM LACING CUTTER Sexual Orientation Straight 10/11/2019 2: 51 PM LACING CUTTER documented as of this encounter Plan of Treatment Upcoming Encounters Date Type Department Care Team (Late st Contact Info) Description 10/09/2024 2:30 PM LACING CUTTER Office Visit [address] [address] Alex Johnson MD [address] [place] [address] documented as of this encounter Visit Diagnoses Not on filedocumented in this encounter Additional Health Concerns Infection Onset Date Last Indicated Resolved Time COVID-19 06/23/2020 06/23/2020 07/14/2020 11:4 0 PM LACING CUTTER Recovered COVID 07/08/2020 07/08/2020 09/21/2020 1 1:39 PM LACING CUTTER Assessment Noted Time PHQ-9 Depression Total Score: 12 018 7:15 AM CDT documented as of this encounter Care Teams Tank Cooper Relationship Specialty Start Date End Date Bonny Cooley MD [address] [place] [address] PCP - General Family Practice 09/30/15 06/02/21 Bonny Cooley MD [address] [address] PCP - Assigned PCP 10/05/15 10/10/[address] [facility] [address] [place] [address] PCP - General Internal Medicine 06/03/21 Bettye Gonzales MD MD Internal Medicine 04/10/15 Antony Chakraborty MD [address] [address] INTERNAL MEDICINE - ENDOCRINOLOGY, DIABETES & METABOLISM 11/13/15 Mateo Cheema MD [address] [address] Internal Medicine 08/06/16 Ermias Colón MD [address] [address] Referring Physician Neurology 09/23/16 Suzanne Fernández RN [facility] Router Setter Primary Care - CC 02/28/18 Bonny Cooley MD [address] [address] Assigned PCP 10/05/15 07/26/20 Pam Hernandez MD [address] [place] [address] [place] [address] Assigned Behavioral Health Provider 05/30/20 08/01/21 Lázaro Horowitz MD [address] [address] Assigned Rheumatology Provider 05/30/20 07/19/20 Jaime Grover MD [address] [place] [address] Assigned Gastroenterology Provider 05/30/20 11/14/21 Toni Sheth MD [address] [address] Assigned Pediatric Specialist Provider 05/30/20 09/07/20 Toni Sheth MD [address] [address] Assigned Surgical Provider 05/30/2006/28 [place] [address] [place] [address] Assigned PCP 07/27/20 04/25/21 Bonny Cooley MD 2270 [facility] [address] [place] [address] Assigned PCP 04/26/21 08/15/21 Bertram Elizabeth MD 2270 [facility] [address] [place] [address] Assigned PCP 08/16/21 10/24/21 Alex Johnson MD [address] [place] [address] Assigned Rheumatology Provider 10/18/21 04/15/23 Bonny Cooley MD 0 [facility] [address] [place] [address] Assigned PCP 10/25/21 04/02/22 Bertram Elizabeth MD [address] [address] [place] [address] Assigned PCP 04/03/22 07/23/22 Bertram Elizabeth MD [address] [address] [place] [address] Assigned PCP 10/02/22 04/29/23 documented as of this encounter
--- OUTSIDE RECORDS SUMMARY | 2024-06-05 20:29 | XMS_ITS | Encounter Summary ---
Author Organization [place] [facility] Address [address] [place] [address] Care Team Providers Care Party Planner Name Role Phone Bettye Gonzales MD Unavailable + Bonny Cooley MD Primary Care Provider Antony Chakraborty MD Unavailable Mateo Cheema MD Unavailable Ermias Colón MD Unavailable Suzanne Feránndez RN Unavailable [phone] Bonny Cooley MD Unavailable [phone] Bonny Cooley MD Unavailable [phone] Pam Hernandez MD Unavailable [phone] Lázaro Horowitz MD Unavailable [phone] Jaime Grover MD Unavailable Toni Sheth MD Unavailable [phone] Toni Sheth MD Unavailable [phone] Bertram Elizabeth MD Unavailable Bonny Cooley MD Unavailable [phone] Aminata Youssef MD Primary Care Provider Bertram Elizabeth MD Unavailable Alex Johnson MD Unavailable Bonny Cooley MD Unavailable [phone] Bertram Elizabeth MD Unavailable Bertram Elizabeth MD Unavailable Reason for Visit * Reason Onset Date Comments Hand Pain 01/03/2017 Edema 01/03/2017 Encounter Details Date Type Department Care Team (Late st Contact Info) Description 01/03/2017 [facility] Medical Advice [address] [address] Bonny Cooley MD [address] [place] [address] [address] Hand Pain; Edema Social History Tobacco Use Types Packs/Day Years Used Date Smoking Tobacco: Never Smokeless Tobacco: Never Alcohol Use Standard Drinks/Week Comments No 0 (1 standard drink = 0.6 oz pur e alcohol) Comments No Sex and Gender Information Value Date Recorded Sex Assigned at Female 08/28/2018 12:23 AM GRAPHIC DESIGN TEACHER Legal Sex Female 4:46 AM GRAPHIC DESIGN TEACHER Gender Identity Female 08/28/2018 12:23 AM GRAPHIC DESIGN TEACHER Sexual Orientation Straight 10/11/2019 2: 51 PM GRAPHIC DESIGN TEACHER documented as of this encounter Miscellaneous Notes * Telephone Encounter - Nolvia Townsend RN - 01/04/2017 5:04 PM CDT Message to patient regarding X-ray and follow up. MARY KATE Lorenzana, RN [facility] * Telephone Encounter - Bonny Cooley MD - 01/04/2017 4:10 PM CDT Lets obtain xray of both hands. I have placed the order. Will wait for echo and xray, if both are normal then pt can f/u with rheum. Her previous autoimmune testing for rheumatoid arthritis and SLE were normal. DM * Telephone Encounter - Katlin Germain, RN - 01/04/2017 7:[address] Cooley-Please review. Would another office visit be recommended for evaluation? Tire Service Supervisor also pended rheumatology referral. Thank you! Emeterio. MARY KATE Germain, RN documented in this encounter Plan of Treatment Upcoming Encounters Date Type Department Care Team (Late st Contact Info) Description 10/09/2024 2:30 PM GRAPHIC DESIGN TEACHER Office Visit [address] [address] Alex Johnson MD [address] [place] [id number] documented as of this encounter Results * [...] agree with the findings. HANS DICKEY MD us Deqa Y Lenora STACY IMG DIAGNOSTIC IMAGING ORDERAB LES Final Result documented in this encounter Visit Diagnoses Diagnosis Arthritis- Primary Arthropathy, unspecified, site unspecified Arthritis Arthropathy, unspecified, site unspecified documented in this encounter Additional Health Concerns Infection Onset Date Last Indicated Resolved Time COVID-19 06/23/2020 06/23/2020 07/14/2020 11:4 0 PM GRAPHIC DESIGN TEACHER Recovered COVID 07/08/2020 07/08/2020 09/21/2020 1 1:39 PM GRAPHIC DESIGN TEACHER Assessment Noted Time PHQ-9 Depression Total Score: 6 09/22/19 17 7:27 AM GRAPHIC DESIGN TEACHER documented as of this encounter Care Teams Party Planner Relationship Specialty Start Date End Date Bonny Cooley MD [address] [place] [address] PCP - General Family Practice 09/30/15 06/02/21 Bonny Cooley MD [address] [address] PCP - Assigned PCP 10/05/15 10/10/18 Aminata Youssef MD [facility] [address] [place] [address] PCP - General Internal Medicine 06/03/21 Bettye Gonzales MD MD Internal Medicine 04/10/15 Antony Chakraborty MD [address] [address] INTERNAL MEDICINE - ENDOCRINOLOGY, DIABETES & METABOLISM 11/13/15 Mateo Cheema MD [address] [address] Internal Medicine 08/06/16 Ermias Colón MD [address] [address] Referring Physician Neurology 09/23/16 Suzanne Fernández, [facility] Electronic Warfare Officer Primary Care - CC 02/28/18 Bonny Cooley MD [address] [address] Assigned PCP 10/05/15 07/26/20 Pam Hernandez MD [address] [place] [address] [place] [address] Assigned Behavioral Health Provider 05/30/20 08/01/21 Lázaro Horowitz MD [address] [address] [address] [place] [address] Assigned Rheumatology Provider 05/30/20 07/19/20 Jaime Grover MD [address] [place] [address] Assigned Gastroenterology Provider 05/30/20 11/14/21 Toni Sheth MD [address] [address] Assigned Pediatric Specialist Provider 05/30/20 09/07/20 Toni Sheth MD [address] [address] Assigned Surgical Provider 05/30/2006/28 Bertram Elizabeth MD [address] [address] Assigned PCP 07/27/20 04/25/21 Bonny Cooley MD [address] [address] Assigned PCP 04/26/21 08/15/21 Bertram Elizabeth MD 2270 [facility] 200 [place] [address] Assigned PCP 08/16/21 10/24/21 Alex Johnson MD [address] [place] [address] Assigned Rheumatology Provider 10/18/21 04/15/23 Bonny Cooley MD [address] [place] [address] Assigned PCP 10/25/21 04/02/22 Bertram Elizabeth MD [address] [place] [address] Assigned PCP 04/03/22 07/23/22 Bertram Elizabeth MD [address] [address] Assigned PCP 10/02/22 04/29/23 documented as of this encounter
--- OUTSIDE RECORDS SUMMARY | 2024-06-05 20:29 | XMS_ITS | Encounter Summary ---
Author Organization [facility] Address [address] [place] [address] Care Team Providers Care Home Health Speech Therapist Name Role Phone Bettye Gonzales MD Unavailable + Bonny Cooley MD Primary Care Provider [phone] Antony Chakraborty MD Unavailable [phone] Mateo Cheema MD Unavailable Ermias Colón MD Unavailable Suzanne Fernández RN Unavailable [phone] Bonny Cooley MD Unavailable [phone] Bonny Cooley MD Unavailable [phone] Pam Hernandez MD Unavailable [phone] Lázaro Horowitz MD Unavailable [phone] Jaime Grover MD Unavailable Toni Sheth MD Unavailable [phone] Toni Sheth MD Unavailable [phone] Bertram Elizabeth MD Unavailable Bonny Cooley MD Unavailable [phone] Aminata Youssef MD Primary Care Provider [phone] Bertram Elizabeth MD Unavailable [phone] Alex Johnson MD Unavailable Bonny Cooley MD Unavailable [phone] Bertram Elizabeth MD Unavailable Bertram Elizabeth MD Unavailable Reason for Visit * Reason Onset Date Comments cpap causing isusse 07/27/2017 Encounter Details Date Type Department Care Team (Late st Contact Info) Description 07/27/[address] [address] Nestor Vergara MD [address] [place] [address] cpap causing isusse Social History Tobacco Use Types Packs/Day Years Used Date Smoking Tobacco: Former Cigarettes 2 3 0 04/23/1976 - 12/17/1977 Smokeless Tobacco: Never Alcohol Use Standard Drinks/Week Comments No 0 (1 standard drink = 0.6 oz pur e alcohol) Comments No Sex and Gender Information Value Date Recorded Sex Assigned at Female 08/28/2018 12:23 AM ORACLE ETL DEVELOPER Legal Sex Female 4:46 AM ORACLE ETL DEVELOPER Gender Identity Female 08/28/2018 12:23 AM ORACLE ETL DEVELOPER Sexual Orientation Straight 10/11/2019 2: 51 PM ORACLE ETL DEVELOPER documented as of this encounter Miscellaneous Notes [...] sick. I transfer the patient to the [facility] as well. LE ETL DEVELOPER documented in this encounter Plan of Treatment Upcoming Encounters Date Type Department Care Team (Late st Contact Info) Description 10/09/2024 2:30 PM ORACLE ETL DEVELOPER Office Visit [address] [phone] Alex Johnson MD [address] [place] [address] 88 [place] [address] documented as of this encounter Visit Diagnoses Not on filedocumented in this encounter Additional Health Concerns Infection Onset Date Last Indicated Resolved Time COVID-19 06/23/2020 06/23/2020 07/14/2020 11:4 0 PM ORACLE ETL DEVELOPER Recovered COVID 07/08/2020 07/08/2020 09/21/2020 1 1:39 PM ORACLE ETL DEVELOPER Assessment Noted Time PHQ-9 Depression Total Score: 17 017 1:13 PM CDT documented as of this encounter Care Teams Home Health Speech Therapist Relationship Specialty Start Date End Date Bonny Cooley MD [address] [place] [address] PCP - General Family Practice 09/30/15 06/02/21 Bonny Cooley MD [address] [address] PCP - Assigned PCP 10/05/15 10/10/18 Aminata Youssef MD [facility] [address] [place] [address] PCP - General Internal Medicine 06/03/21 Bettye Gonzales MD Internal Medicine 04/10/15 Antony Chakraborty MD [address] [address] INTERNAL MEDICINE - ENDOCRINOLOGY, DIABETES & METABOLISM 11/13/15 Mateo Cheema MD [address] [address] Internal Medicine 08/06/16 Ermias Colón MD [address] [address] Referring Physician Neurology 09/23/16 Suzanne Fernández, [facility] Press Washer Primary Care - CC 02/28/18 [place] [address] [place] [address] Assigned PCP 10/05/15 07/26/20 Pam Hernandez MD [address] [facility] [place] [address] Assigned Behavioral Health Provider 05/30/20 08/01/21 Lázaro Horowitz MD [facility] [address] [place] [address] Assigned Rheumatology Provider 05/30/20 07/19/20 Jaime Grover MD [address] [place] [address] Assigned Gastroenterology Provider 05/30/20 11/14/21 Toni Sheth MD [facility] [address] [place] [address] Assigned Pediatric Specialist Provider 05/30/20 09/07/20 Toni Sheth MD [facility] [address] [facility] 98 [place] [address] Assigned Surgical Provider 05/30/2006/28 Bertram Elizabeth MD [address] [address] Assigned PCP 07/27/20 04/25/21 Bonny Cooley MD [address] [address] Assigned PCP 04/26/21 08/15/21 Bertram Elizabeth MD [address] [address] Assigned PCP 08/16/21 10/24/21 Alex oJhnson MD [address] [place] [address] Assigned Rheumatology Provider 10/18/21 04/15/23 Bonny Cooley MD [address] [address] Assigned PCP 10/25/21 04/02/22 Bertram Elizabeth MD [address] [address] Assigned PCP 04/03/22 07/23/22 Bertram Elizabeth MD [address] [address] Assigned PCP 10/02/22 04/29/23 documented as of this encounter
--- OUTSIDE RECORDS SUMMARY | 2024-06-05 20:29 | XMS_ITS | Encounter Summary ---
Author Organization [facility] Address [address] [place] [address] Care Team Providers Care Inspector Government Property Name Role Phone Bettye Gonzales MD Unavailable + Bonny Cooley MD Primary Care Provider Antony Chakraborty MD Unavailable Mateo Cheema MD Unavailable Ermias Colón MD Unavailable Bonny Cooley MD Unavailable [phone] Bonny Cooley MD Unavailable [phone] Pam Hernandez MD Unavailable [phone] Lázaro Horowitz MD Unavailable Jaime Grover MD Unavailable Toni Sheth MD Unavailable [phone] Toni Sheth MD Unavailable [phone] Bertram Elizabeth MD Unavailable Bonny Cooley MD Unavailable [phone] Aminata Youssef MD Primary Care Provider Bertram Elizabeth MD Unavailable Alex Johnson MD Unavailable Bonny Cooley MD Unavailable [phone] Bertram Elizabeth MD Unavailable Bertram Elizabeth MD Unavailable [phone] Encounter Details Date Type Department Care Team (Late st Contact Info) Description 08/07/2018 [facility] Medical Advice [address] [address] Fransisco Abarca Social History Tobacco Use Types Packs/Day Years Used Date Smoking Tobacco: Former Cigarettes 2 3 0 04/23/1976 - 12/17/1977 Smokeless Tobacco: Never Alcohol Use Standard Drinks/Week Comments No 0 (1 standard drink = 0.6 oz pur e alcohol) Comments No Sex and Gender Information Value Date Recorded Sex Assigned at Female 08/28/2018 12:23 AM ANALYZER SALES Legal Sex Female 4:46 AM ANALYZER SALES Gender Identity Female 08/28/2018 12:23 AM ANALYZER SALES Sexual Orientation Straight 10/11/2019 2: 51 PM ANALYZER SALES documented as of this encounter Plan of Treatment Upcoming Encounters Date Type Department Care Team (Late st Contact Info) Description 10/09/2024 2:30 PM ANALYZER SALES Office Visit [address] [address] Alex Johnson MD [address] [place] [address] documented as of this encounter Visit Diagnoses Not on filedocumented in this encounter Additional Health Concerns Infection Onset Date Last Indicated Resolved Time COVID-19 06/23/2020 06/23/2020 07/14/2020 11:4 0 PM ANALYZER SALES Recovered COVID 07/08/2020 07/08/2020 09/21/2020 1 1:39 PM ANALYZER SALES Assessment Noted Time PHQ-9 Depression Total Score: 13 018 7:20 AM ANALYZER SALES documented as of this encounter Care Teams Inspector Government Property Relationship Specialty Start Date End Date Bonny Cooley MD [address] [place] [address] PCP - General Family Practice 09/30/15 06/02/21 Bonny Cooley MD [address] [address] PCP - Assigned PCP 10/05/15 10/10/18 Aminata Youssef MD [address] [address] PCP - General Internal Medicine 06/03/21 Bettye Gonzalse MD MD Internal Medicine 04/10/15 Antony Chakraborty MD [address] [address] INTERNAL MEDICINE - ENDOCRINOLOGY, DIABETES & METABOLISM 11/13/15 Mateo Cheema MD [address] [address] Internal Medicine 08/06/16 Ermias Colón MD [address] [address] Referring Physician Neurology 09/23/16 Bonny Cooley MD [address] [address] Assigned PCP 10/05/15 07/26/20 Pam Hernandez MD [address] [place] [address] [place] [address] Assigned Behavioral Health Provider 05/30/20 08/01/21 Lázaro Horowitz MD [facility] [address] [place] [address] Assigned Rheumatology Provider 05/30/20 07/19/20 Jaime Grover MD [address] [place] [address] Assigned Gastroenterology Provider 05/30/20 11/14/21 Toni Sheth MD [address] [address] Assigned Pediatric Specialist Provider 05/30/20 09/07/20 Toni Sheth MD [address] [address] Assigned Surgical Provider 05/30/2006/28 Bertram Elizabeth MD [address] [address] Assigned PCP 07/27/20 04/25/21 Bonny Cooley MD [address] [address] Assigned PCP 04/26/21 08/15/21 Bertram Elizabeth MD 2270 [facility] 200 [place] [address] Assigned PCP 08/16/21 10/24/21 Alex Johnson MD [address] [place] [address] Assigned Rheumatology Provider 10/18/21 04/15/23 Bonny Cooley MD [address] [place] [address] Assigned PCP 10/25/21 04/02/22 Bertram Elizabeth MD [address] [address] Assigned PCP 04/03/22 07/23/22 Bertram Elizabeth MD [address] [address] Assigned PCP 10/02/22 04/29/23 documented as of this encounter
--- OUTSIDE RECORDS SUMMARY | 2024-06-05 20:29 | XMS_ITS | Encounter Summary ---
Author Organization [facility] Address [address] [place] [address] Care Team Providers Care Piano Accompanist Name Role Phone Mila Carranza MD Primary Care Provider [phone] Marci Combs MD Primary Care Provider Mila Gil APRN [facility] Primary Care Provid er Bettye Gonzales MD Unavailable + Bettye Gonzales MD Primary Care Prov ider Bonny Cooley MD Primary Care Provider [phone] Antony Chakraborty MD Unavailable [phone] Mateo Cheema MD Unavailable Ermias Colón MD Unavailable Suzanne Fernández RN Unavailable [phone] Bonny Cooley MD Unavailable [phone] Bonny Cooley MD Unavailable [phone] Pam Hernandez MD Unavailable [phone] Lázaro Horowitz MD Unavailable Jaime Grover MD Unavailable Toni Sheth MD Unavailable + Toni Sheth MD Unavailable + Bertram Elizaebth MD Unavailable [phone] Bonny Cooley MD Unavailable [phone] Aminata Youssef MD Primary Care Provider [phone] Bertram Elizabeth MD Unavailable [phone] Alex Johnson MD Unavailable [phone] Bonny Cooley MD Unavailable +[phone] Bertram Elizabeth MD Unavailable [phone] Bertram Elizabeth MD Unavailable +[phone]- Encounter Details Date Type Department Care Team (Late st Contact Info) Description 09/02/2011 Telephone [facility] Behavioral Health Intake [address] [place] [address] Generic, Behavioral Intake, Social History Tobacco Use Types Packs/Day Years Used Date Smoking Tobacco: Never Assessed Smokeless Tobacco: Never Alcohol Use Standard Drinks/Week Comments No 0 (1 standard drink = 0.6 oz pur e alcohol) Comments No Sex and Gender Information Value Date Recorded Sex Assigned at Female 08/28/2018 12:23 AM BEND UP Legal Sex Female 4:46 AM BEND UP Gender Identity Female 08/28/2018 12:23 AM BEND UP Sexual Orientation Straight 10/11/2019 2: 51 PM BEND UP documented as of this encounter Miscellaneous Notes * Telephone Encounter - Joselyn Rodriges - 09/15/2011 4:35 PM CST Left message for client to call back to set up assessment appointment. 2nd message left await call back from client. UP * Telephone Encounter - Joselyn Rodriges - 09/09/2011 2:26 PM CST Left message for client to call back to set up assessment appointment. UP * Telephone Encounter - Joselyn Rodriges - 09/03/2011 11:59 AM CST Referral received. UP * Telephone Encounter - Ac Magana - [...] pls call the home number for intake. kab UP documented in this encounter Plan of Treatment Upcoming Encounters Date Type Department Care Team (Late st Contact Info) Description 10/09/2024 2:30 PM BEND UP Office Visit [address] [address] Alex Johnson MD [address] [place] [address] documented as of this encounter Visit Diagnoses Not on filedocumented in this encounter Additional Health Concerns Infection Onset Date Last Indicated Resolved Time COVID-19 06/23/2020 06/23/2020 07/14/2020 11:4 0 PM BEND UP Recovered COVID 07/08/2020 07/08/2020 09/21/2020 1 1:39 PM BEND UP documented as of this encounter Care Teams Piano Accompanist Relationship Specialty Start Date End Date Mila Carranza MD [address] [address] PCP - General Family Practice 01/21/12 09/13/13 Marci Combs MD [facility] [address] [facility] [address] [place] [address] PCP - General Family Practice 09/14/13 11/27/14 Jeffery Mila MIKAL Deal SWIMMING POOL MAINTENANCE SUPERVISOR [address] [place] [address] PCP - General Nurse Practitioner 11/28/14 04/30/15 [place] [address] [place] [address] PCP - General Internal Medicine 05/01/15 09/29/15 Bonny Cooley MD [address] [place] [address] PCP - General Family Practice 09/30/15 06/02/21 Bonny Cooley MD [address] [address] PCP - Assigned PCP 10/05/15 10/10/18 Aminata Youssef MD [facility] & [address] [address] PCP - General Internal Medicine 06/03/21 [place] [address] [place] [address] Internal Medicine 04/10/15 Antony Chakraborty MD [address] [place] [address] INTERNAL MEDICINE - ENDOCRINOLOGY, DIABETES & METABOLISM 11/13/15 Mateo Cheema MD [address] [address] Internal Medicine 08/06/16 Ermias Colón MD [address] [address] Referring Physician Neurology 09/23/16 Suzanne Fernández, [facility] Gelatin Plant Supervisor Primary Care - CC 02/28/18 Bonny Cooley MD [address] [id number] Assigned PCP 10/05/15 07/26/20 Pam Hernandez MD [address] [place] [address] Assigned Behavioral Health Provider 05/30/20 08/01/21 Lázaro Horowitz MD [facility] [address] [place], [place] [address] Assigned Rheumatology Provider 05/30/20 07/19/20 Jaime Grover MD [address] [place] [address] Assigned Gastroenterology Provider 05/30/20 11/14/21 Toni Sheth MD [facility] [address] [facility] [address] [place] [address] Assigned Pediatric Specialist Provider 05/30/20 09/07/20 Toni Sheth MD [facility] [address] [facility] [address] [place] [address] Assigned Surgical Provider 05/30/20 04/18/21 Bertram Elizabeth MD [address] [place] [address] Assigned PCP 07/27/20 04/25/21 Bonny Cooley MD [address] [place] [address] Assigned PCP 04/26/21 08/15/21 Bertram Elizabeth MD [address] [place] [address] Assigned PCP 08/16/21 10/24/21 Alex Johnson MD [address] [place] [address] Assigned Rheumatology Provider 10/18/21 04/15/23 Bonny Cooley MD [address] [place] [address] Assigned PCP 10/25/21 04/02/22 Bertram Elizabeth MD [address] [place] [address] Assigned PCP 04/03/22 07/23/22 Bertram Elizabeth MD [address] [address] Assigned PCP 10/02/22 04/29/23 documented as of this encounter
--- OUTSIDE RECORDS SUMMARY | 2024-06-05 20:29 | XMS_ITS | Encounter Summary ---
Author Organization [facility] Address [address] [place] [address] Care Team Providers Care Machining And Assembly Supervisor Name Role Phone Bettye Gonzales MD Unavailable + Bonny Cooley MD Primary Care Provider Antony Chakraborty MD Unavailable [phone] Mateo Cheema MD Unavailable [phone] Ermias Colón MD Unavailable Bonny Cooley MD Unavailable [phone] Bonny Cooley MD Unavailable [phone] Pam Hernandez MD Unavailable [phone] Lázaro Horowitz MD Unavailable Jaime Grover MD Unavailable Toni Sheth MD Unavailable [phone] Toni Sheth MD Unavailable [phone] Bertram Elizabeth MD Unavailable Bonny Cooley MD Unavailable [phone] Aminata Youssef MD Primary Care Provider Bertram Elizabeth MD Unavailable Alex Johnson MD Unavailable Bonny Cooley MD Unavailable [phone] Bertram Elizabeth MD Unavailable Bertram Elizabeth MD Unavailable Encounter Details Date Type Department Care Team (Late st Contact Info) Description 06/30/2018 MyC Medical Advice [address] [address] Noe Camarena RN Social History Tobacco Use Types Packs/Day Years Used Date Smoking Tobacco: Former Cigarettes 2 3 0 04/23/1976 - 12/17/1977 Smokeless Tobacco: Never Alcohol Use Standard Drinks/Week Comments No 0 (1 standard drink = 0.6 oz pur e alcohol) Comments No Sex and Gender Information Value Date Recorded Sex Assigned at Female 08/28/2018 12:23 AM ROLL CAPPER Legal Sex Female 4:46 AM ROLL CAPPER Gender Identity Female 08/28/2018 12:23 AM ROLL CAPPER Sexual Orientation Straight 10/11/2019 2: 51 PM ROLL CAPPER documented as of this encounter Plan of Treatment Upcoming Encounters Date Type Department Care Team (Late st Contact Info) Description 10/09/2024 2:30 PM ROLL CAPPER Office Visit [address] [address] Alex Johnson MD [address] [place] [address] documented as of this encounter Visit Diagnoses Not on filedocumented in this encounter Additional Health Concerns Infection Onset Date Last Indicated Resolved Time COVID-19 06/23/2020 06/23/2020 07/14/2020 11:4 0 PM ROLL CAPPER Recovered COVID 07/08/2020 07/08/2020 09/21/2020 1 1:39 PM ROLL CAPPER Assessment Noted Time PHQ-9 Depression Total Score: 13 11/27/2 018 7:20 AM ROLL CAPPER documented as of this encounter Care Teams Machining And Assembly Supervisor Relationship Specialty Start Date End Date Bonyn Cooley MD [address] [place] [address] PCP - General Family Practice 09/30/15 06/02/21 Bonny Cooley MD [address] [address] PCP - Assigned PCP 10/05/15 10/10/18 Aminata Youssef MD [facility] - [address] [address] PCP - General Internal Medicine 06/03/21 Bettye Gonzales MD MD Internal Medicine 04/10/15 Antony Chakraborty MD [address] [address] MD INTERNAL MEDICINE - ENDOCRINOLOGY, DIABETES & METABOLISM 11/13/15 Mateo Cheema MD [address] [address] Internal Medicine 08/06/16 Ermias Colón MD [address] [address] Referring Physician Neurology 09/23/16 Bonny Cooley MD [address] [address] Assigned PCP 10/05/15 07/26/20 Pam Hernandez MD [address] [facility] [place] [address] Assigned Behavioral Health Provider 05/30/20 08/01/21 Lázaro Horowitz MD [facility] [address] [place] [address] Assigned Rheumatology Provider 05/30/20 07/19/20 Jaime Grover MD [address] [place] [address] Assigned Gastroenterology Provider 05/30/20 11/14/21 Toni Sheth MD [address] [address] Assigned Pediatric Specialist Provider 05/30/20 09/07/20 Toni Sheth MD [address] [address] Assigned Surgical Provider 05/30/2006/28 Bertram Elizabeth MD [address] [address] Assigned PCP 07/27/20 04/25/21 Bonny Cooley MD [address] [address] Assigned PCP 04/26/21 08/15/21 Bertram Elizabeth MD [address] [address] Assigned PCP 08/16/21 10/24/21 Alex Johnson MD [address] [place] [address] Assigned Rheumatology Provider 10/18/21 04/15/23 Bonny Cooley MD [address] [address] Assigned PCP 10/25/21 04/02/22 Bertram Elizabeth MD [address] [address] Assigned PCP 04/03/22 07/23/22 Bertram Elizabeth MD [address] [address] Assigned PCP 10/02/22 04/29/23 documented as of this encounter
--- OUTSIDE RECORDS SUMMARY | 2024-06-05 20:29 | XMS_ITS | Encounter Summary ---
Author Organization [facility] Address [address] [place] [address] Care Team Providers Care Insurance Sales Assistant Name Role Phone Bettye Gonzales MD Unavailable + Bonny Cooley MD Primary Care Provider Antony Chakraborty MD Unavailable Mateo Cheema MD Unavailable [phone] Ermias Colón MD Unavailable Suzanne Fernández RN Unavailable [phone] Bonny Cooley MD Unavailable [phone] Bonny Cooley MD Unavailable Pam Hernandez MD Unavailable [phone] Lázaro Horowitz MD Unavailable [phone] Jaime Grover MD Unavailable Toni Sheth MD Unavailable [phone] Toni Sheth MD Unavailable [phone] Bertram Elizabeth MD Unavailable Bonny Cooley MD Unavailable [phone] Aminata Youssef MD Primary Care Provider Bertram Elizabeth MD Unavailable Alex Johnson MD Unavailable Bonny Cooley MD Unavailable [phone] Bertram Elizabeth MD Unavailable [phone] Bertram Elizabeth MD Unavailable [phone] Encounter Details Date Type Department Care Team (Late st Contact Info) Description 02/28/2018 MyC Medical Advice [address] [address] Noe Camarena RN Social History Tobacco Use Types Packs/Day Years Used Date Smoking Tobacco: Former Cigarettes 2 3 0 04/23/1976 - 12/17/1977 Smokeless Tobacco: Never Alcohol Use Standard Drinks/Week Comments No 0 (1 standard drink = 0.6 oz pur e alcohol) Comments No Sex and Gender Information Value Date Recorded Sex Assigned at Female 08/28/2018 12:23 AM DOWEL MACHINE OPERATOR Legal Sex Female 4:46 AM DOWEL MACHINE OPERATOR Gender Identity Female 08/28/2018 12:23 AM DOWEL MACHINE OPERATOR Sexual Orientation Straight 10/11/2019 2: 51 PM DOWEL MACHINE OPERATOR documented as of this encounter Plan of Treatment Upcoming Encounters Date Type Department Care Team (Late st Contact Info) Description 10/09/2024 2:30 PM DOWEL MACHINE OPERATOR Office Visit [address] [address] Alex Johnson MD [address] [place] [address] documented as of this encounter Visit Diagnoses Not on filedocumented in this encounter Additional Health Concerns Infection Onset Date Last Indicated Resolved Time COVID-19 06/23/2020 06/23/2020 07/14/2020 11:4 0 PM DOWEL MACHINE OPERATOR Recovered COVID 07/08/2020 07/08/2020 09/21/2020 1 1:39 PM DOWEL MACHINE OPERATOR Assessment Noted Time PHQ-9 Depression Total Score: 12 018 7:15 AM CDT documented as of this encounter Care Teams Insurance Sales Assistant Relationship Specialty Start Date End Date Bonny Cooley MD [address] [place] [address] PCP - General Family Practice 09/30/15 06/02/21 Bonny Cooley MD [address] [address] PCP - Assigned PCP 10/05/15 10/10/18 Aminata Youssef MD [facility] & [address] [address] PCP - General Internal Medicine 06/03/21 Bettye Gonzales MD MD Internal Medicine 04/10/15 Antony Chakraborty MD [address] [address] INTERNAL MEDICINE - ENDOCRINOLOGY, DIABETES & METABOLISM 11/13/15 Mateo Cheema MD [address] [address] Internal Medicine 08/06/16 Ermias Colón MD [address] [address] Referring Physician Neurology 09/23/16 Suzanne Fernández RN Clinic Meat Market Manager Primary Care - CC 02/28/18 [place] [address] [place] [address] Assigned PCP 10/05/15 07/26/20 Pam Hernandez MD [address] [place] [address] [place] [address] Assigned Behavioral Health Provider 05/30/20 08/01/21 Lázaro Horowitz MD [address] [address] Assigned Rheumatology Provider 05/30/20 07/19/20 Jaime Grover MD [address] [place] [address] Assigned Gastroenterology Provider 05/30/20 11/14/21 Toni Sheth MD [address] [address] Assigned Pediatric Specialist Provider 05/30/20 09/07/20 Toni Sheth MD [address] [address] Assigned Surgical Provider 05/30/2006/28 [place] [address] [place] [address] Assigned PCP 07/27/20 04/25/21 Bonny Cooley MD [address] [facility] 200 [place] [address] Assigned PCP 04/26/21 08/15/21 Bertram Elizabeth MD [address] [facility] 200 [place] [address] Assigned PCP 08/16/21 10/24/21 Alex Johnson MD [address] [place] [address] Assigned Rheumatology Provider 10/18/21 04/15/23 Bonny Cooley MD [address] [facility] 200 [place] [address] Assigned PCP 10/25/21 04/02/22 Bertram Elizabeth MD [address] [facility] 200 [place] [address] Assigned PCP 04/03/22 07/23/22 Bertram Elizabeth MD [address] [facility] 200 [place] [address] Assigned PCP 10/02/22 04/29/23 documented as of this encounter
--- OUTSIDE RECORDS SUMMARY | 2024-06-05 20:29 | XMS_ITS | Encounter Summary ---
Author Organization [facility] Address [address] [place] [address] Care Team Providers Care Switchboard And Control Room Operator Name Role Phone Bettye Gonzales MD Unavailable + Bonny Cooley MD Primary Care Provider [phone] Antony Chakraborty MD Unavailable Mateo Cheema MD Unavailable Ermias Colón MD Unavailable Bonny Cooley MD Unavailable [phone] Bonny Cooley MD Unavailable [phone] Pam Hernandez MD Unavailable [phone] Lázaro Horowitz MD Unavailable Jaime Grover MD Unavailable [phone] Toni Sheth MD Unavailable [phone] Toni Sheth MD Unavailable [phone] Bertram Elizabeth MD Unavailable Bonny Cooley MD Unavailable [phone] Aminata Youssef MD Primary Care Provider Bertram Elizabeth MD Unavailable Alex Johnson MD Unavailable Bonny Cooley MD Unavailable [phone] Bertram Elizabeth MD Unavailable Bertram Elizabeth MD Unavailable Reason for Visit * Reason Onset Date Comments Lamictal Taper 04/12/2018 Encounter Details Date Type Department Care Team (Late st Contact Info) Description 04/12/2018 MyC Medical Advice [facility] [address] [address] Ermias Colón MD [address] [place], [place] [address] Lamictal Taper Social History Tobacco Use Types Packs/Day Years Used Date Smoking Tobacco: Former Cigarettes 2 3 0 04/23/1976 - 12/17/1977 Smokeless Tobacco: Never Alcohol Use Standard Drinks/Week Comments No 0 (1 standard drink = 0.6 oz pur e alcohol) Comments No Sex and Gender Information Value Date Recorded Sex Assigned at Female 08/28/2018 12:23 AM SHIP BOAT OR BARGE MATE Legal Sex Female 4:46 AM SHIP BOAT OR BARGE MATE Gender Identity Female 08/28/2018 12:23 AM SHIP BOAT OR BARGE MATE Sexual Orientation Straight 10/11/2019 2: 51 PM SHIP BOAT OR BARGE MATE documented as of this encounter Miscellaneous Notes [...] the same message to both of you. Tara Lou RN * Telephone Encounter - [...] st Contact Info) Description 10/09/2024 2:30 PM SHIP BOAT OR BARGE MATE Office Visit [address] [address] Alex Johnson MD [address] [place] [address] documented as of this encounter Visit Diagnoses Diagnosis Generalized anxiety disorder- Primary documented in this encounter Additional Health Concerns Infection Onset Date Last Indicated Resolved Time COVID-19 06/23/2020 06/23/2020 07/14/2020 11:4 0 PM SHIP BOAT OR BARGE MATE Recovered COVID 07/08/2020 07/08/2020 09/21/2020 1 1:39 PM SHIP BOAT OR BARGE MATE Assessment Noted Time PHQ-9 Depression Total Score: 12 018 7:15 AM CDT documented as of this encounter Care Teams Switchboard And Control Room Operator Relationship Specialty Start Date End Date Bonny Cooley MD [address] [place] [address] PCP - General Family Practice 09/30/15 06/02/21 Bonny Cooley MD [address] [address] PCP - Assigned PCP 10/05/15 10/10/18 Aminata Youssef MD [address] [address] PCP - General Internal Medicine 06/03/21 Bettye Gonzales MD MD Internal Medicine 04/10/15 Antony Chakraborty MD [address] [address] INTERNAL MEDICINE - ENDOCRINOLOGY, DIABETES & METABOLISM 11/13/15 Mateo Cheema MD [address] [address] Internal Medicine 08/06/16 Ermias Colón MD [address] [address] Referring Physician Neurology 09/23/16 Bonny Cooley MD [address] [address] Assigned PCP 10/05/15 07/26/20 Pam Hernandez MD [address] [place] [address] [place] [address] Assigned Behavioral Health Provider 05/30/20 08/01/21 Lázaro Horowitz MD [facility] [address] [place] [address] Assigned Rheumatology Provider 05/30/20 07/19/20 Jaime Grover MD [address] [place] [address] Assigned Gastroenterology Provider 05/30/20 11/14/21 Toni Sheth MD [address] [address] Assigned Pediatric Specialist Provider 05/30/20 09/07/20 Toni Sheth MD [address] [address] Assigned Surgical Provider 05/30/2006/28 Bertram Elizabeth MD [address] [address] Assigned PCP 07/27/20 04/25/21 Bonny Cooley MD [address] [address] Assigned PCP 04/26/21 08/15/21 Bertram Elizabeth MD [address] [facility] 200 [place] [address] Assigned PCP 08/16/21 10/24/21 Alex Johnson MD [address] [place] [address] Assigned Rheumatology Provider 10/18/21 04/15/23 Bonny Cooley MD [address] [address] Assigned PCP 10/25/21 04/02/22 Bertram Elizabeth MD [address] [address] Assigned PCP 04/03/22 07/23/22 Bertram Elizabeth MD [address] [address] Assigned PCP 10/02/22 04/29/23 documented as of this encounter
--- OUTSIDE RECORDS SUMMARY | 2024-06-05 20:29 | XMS_ITS | Encounter Summary ---
Author Organization [place] Address [address] [place] [address] Care Team Providers Care Public Safety Teacher Name Role Phone Bettye Gonzales MD Unavailable + Bonny Cooley MD Primary Care Provider Antony Chakraborty MD Unavailable Mateo Cheema MD Unavailable [phone] Ermias Colón MD Unavailable Suzanne Fernández RN Unavailable [phone] Bonny Cooley MD Unavailable [phone] Bonny Cooley MD Unavailable [phone] Pam Hernandez MD Unavailable [phone] Lázaro Horowitz MD Unavailable [phone] Jaime Grover MD Unavailable Toni Sheth MD Unavailable [phone] Toni Sheth MD Unavailable [phone] Bertram Elizabeth MD Unavailable Bonny Cooley MD Unavailable [phone] Aminata Youssef MD Primary Care Provider Bertram Elizabeth MD Unavailable [phone] Alex Johnson MD Unavailable Bonny Cooley MD Unavailable [phone] Bertram Elizabeth MD Unavailable [phone] Bertram Elizabeth MD Unavailable [phone] Encounter Details Date Type Department Care Team (Late st Contact Info) Description 02/15/2018 MyC Medical Advice [facility] [address] [address] Ermias Colón MD [address] [facility] [place] [address] Social History Tobacco Use Types Packs/Day Years Used Date Smoking Tobacco: Former Cigarettes 2 3 0 04/23/1976 - 12/17/1977 Smokeless Tobacco: Never Alcohol Use Standard Drinks/Week Comments No 0 (1 standard drink = 0.6 oz pur e alcohol) Comments No Sex and Gender Information Value Date Recorded Sex Assigned at Female 08/28/2018 12:23 AM CONTRACT ADMINISTRATIVE ASSISTANT Legal Sex Female 4:46 AM CONTRACT ADMINISTRATIVE ASSISTANT Gender Identity Female 08/28/2018 12:23 AM CONTRACT ADMINISTRATIVE ASSISTANT Sexual Orientation Straight 10/11/2019 2: 51 PM CONTRACT ADMINISTRATIVE ASSISTANT documented as of this encounter Miscellaneous Notes * Telephone Encounter - Nolvia Townsend RN - 02/15/2018 2:13 PM CDT Pt notified that this was refilled. MARY KATE Lorenzana, RN [facility] documented in this encounter Plan of Treatment Upcoming Encounters Date Type Department Care Team (Late st Contact Info) Description 10/09/2024 2:30 PM CONTRACT ADMINISTRATIVE ASSISTANT Office Visit [address] [place] [phone] Alex Johnson MD [address] [place] [address] 88 [place], [place] [address] documented as of this encounter Visit Diagnoses Not on filedocumented in this encounter Additional Health Concerns Infection Onset Date Last Indicated Resolved Time COVID-19 06/23/2020 06/23/2020 07/14/2020 11:4 0 PM CONTRACT ADMINISTRATIVE ASSISTANT Recovered COVID 07/08/2020 07/08/2020 09/21/2020 1 1:39 PM CONTRACT ADMINISTRATIVE ASSISTANT Assessment Noted Time PHQ-9 Depression Total Score: 12 018 7:15 AM CDT documented as of this encounter Care Teams Public Safety Teacher Relationship Specialty Start Date End Date Bonny Cooley MD [address] [place] [address] PCP - General Family Practice 09/30/15 06/02/21 Bonny Cooley MD [address] [address] PCP - Assigned PCP 10/05/15 10/10/18 Aminata Youssef MD [facility] [address] [place] [address] PCP - General Internal Medicine 06/03/21 Bettye Gonzales MD Internal Medicine 04/10/15 Antony Chakraborty MD [address] [facility] 101 [place] [address] INTERNAL MEDICINE - ENDOCRINOLOGY, DIABETES & METABOLISM 11/13/15 Mateo Cheema MD [address] [facility] 101 [place] [address] Internal Medicine 08/06/16 Ermias Colón MD [address] [address] Referring Physician Neurology 09/23/16 Suzanne Fernández, [facility] Rocket Motor Tester Primary Care - CC 02/28/18 Bonny Cooley MD [address] [address] Assigned PCP 10/05/15 07/26/20 Pam Hernandez MD [address] [place] [address] [place] [address] Assigned Behavioral Health Provider 05/30/20 08/01/21 Lázaro Horowitz MD [facility] [address] [place] [address] Assigned Rheumatology Provider 05/30/20 07/19/20 Jaime Grover MD [address] [place] [address] Assigned Gastroenterology Provider 05/30/20 11/14/21 Toni Sheth MD [facility] [address] [place] [address] Assigned Pediatric Specialist Provider 05/30/20 09/07/20 Toni Sheth MD [facility] [address] [facility] 98 [place] [address] Assigned Surgical Provider 05/30/2006/28 Bertram Elizabeth MD [address] [facility] 200 [place] [address] Assigned PCP 07/27/20 04/25/21 Bonny Cooley MD [address] [facility] [address] [place] [address] Assigned PCP 04/26/21 08/15/21 Bertram Elizabeth MD [address] [address] Assigned PCP 08/16/21 10/24/21 Alex Johnson MD [address] [place] [address] 88 [place] [address] Assigned Rheumatology Provider 10/18/21 04/15/23 Bonny Cooley MD [address] [facility] 200 [place] [address] Assigned PCP 10/25/21 04/02/22 Bertram Elizabeth MD [address] [facility] [address] [facility] 200 [place] [address] Assigned PCP 04/03/22 07/23/22 Bertram Elizabeth MD [address] [facility] 200 [place] [address] Assigned PCP 10/02/22 04/29/23 documented as of this encounter
--- OUTSIDE RECORDS SUMMARY | 2024-06-05 20:29 | XMS_ITS | Encounter Summary ---
Author Organization [place] Address [address] [place] [address] Care Team Providers Care Lens Examiner Name Role Phone Bettye Gonzales MD Unavailable + Bonny Cooley MD Primary Care Provider Antony Chakraborty MD Unavailable Mateo Cheema MD Unavailable [phone] Ermias Colón MD Unavailable Suzanne Fernández RN Unavailable [phone] Bonny Cooley MD Unavailable [phone] Bonny Cooley MD Unavailable [phone] Pam Hernandez MD Unavailable [phone] Lázaro Horowitz MD Unavailable [phone] Jaime Grover MD Unavailable Toni Sheth MD Unavailable [phone] Toni Sheth MD Unavailable [phone] Bertram Elizabeth MD Unavailable Bonny Cooley MD Unavailable [phone] Aminata Youssef MD Primary Care Provider Bertram Elizabeth MD Unavailable [phone] Alex Johnson MD Unavailable Bonny Cooley MD Unavailable [phone] Bertram Elizabeth MD Unavailable [phone] Bertram Elizabeth MD Unavailable [phone] Encounter Details Date Type Department Care Team (Late st Contact Info) Description 12/15/2016 MyC Medical Advice [facility] Endocrinology [address] [facility] [address] [place] [address] Mateo Cheema MD 420 [facility] 101 [place] [address] Social History Tobacco Use Types Packs/Day Years Used Date Smoking Tobacco: Never Smokeless Tobacco: Never Alcohol Use Standard Drinks/Week Comments No 0 (1 standard drink = 0.6 oz pur e alcohol) Comments No Sex and Gender Information Value Date Recorded Sex Assigned at Female 08/28/2018 12:23 AM DELIVERY PROFESSIONAL Legal Sex Female 4:46 AM DELIVERY PROFESSIONAL Gender Identity Female 08/28/2018 12:23 AM DELIVERY PROFESSIONAL Sexual Orientation Straight 10/11/2019 2: 51 PM DELIVERY PROFESSIONAL documented as of this encounter Plan of Treatment Upcoming Encounters Date Type Department Care Team (Late st Contact Info) Description 10/09/2024 2:30 PM DELIVERY PROFESSIONAL Office Visit [address] [address] Alex Johnson MD [address] [place] [address] 88 [place] [address] documented as of this encounter Visit Diagnoses Not on filedocumented in this encounter Additional Health Concerns Infection Onset Date Last Indicated Resolved Time COVID-19 06/23/2020 06/23/2020 07/14/2020 11:4 0 PM DELIVERY PROFESSIONAL Recovered COVID 07/08/2020 07/08/2020 09/21/2020 1 1:39 PM DELIVERY PROFESSIONAL Assessment Noted Time PHQ-9 Depression Total Score: 6 09/22/19 17 7:27 AM DELIVERY PROFESSIONAL documented as of this encounter Care Teams Lens Examiner Relationship Specialty Start Date End Date Bonny Cooley MD [address] [place] [address] PCP - General Family Practice 09/30/15 06/02/21 Bonny Cooley MD [address] [id number] PCP - Assigned PCP 10/05/15 10/10/[address] [facility] [address] [place] [address] PCP - General Internal Medicine 06/03/21 Bettye Gonzales MD Internal Medicine 04/10/15 Antony Chakraborty MD [address] [place] [address] [address] INTERNAL MEDICINE - ENDOCRINOLOGY, DIABETES & METABOLISM 11/13/15 Mateo Cheema MD [address] [place] [address] [address] Internal Medicine 08/06/16 Ermias Colón MD [address] [address] Referring Physician Neurology 09/23/16 Suzanne Fernández, RN Clinic Assembly Supervisor Primary Care - CC 02/28/18 Bonny Cooley MD [address] [address] Assigned PCP 10/05/15 07/26/20 Pam Hernandez MD [address] [place] [address] [place] [address] Assigned Behavioral Health Provider 05/30/20 08/01/21 Lázaro Horowitz MD [address] [address] Assigned Rheumatology Provider 05/30/20 07/19/20 Jaime Grover MD [address] [place] [address] Assigned Gastroenterology Provider 05/30/20 11/14/21 Toni Sheth MD [address] [address] Assigned Pediatric Specialist Provider 05/30/20 09/07/20 Toni Sheth MD [address] [address] Assigned Surgical Provider 05/30/2006/28 Bertram Elizabeth MD [address] [address] Assigned PCP 07/27/20 04/25/21 Bonny Cooley MD 0 [facility] 200 [place] [address] Assigned PCP 04/26/21 08/15/21 Bertram Elizabeth MD [address] [place] [address] Assigned PCP 08/16/21 10/24/21 Alex Johnson MD [address] [place] [address] Assigned Rheumatology Provider 10/18/21 04/15/23 Bonny Cooley MD [address] [place] [address] Assigned PCP 10/25/21 04/02/22 Bertram Elizabeth MD [address] [place] [address] Assigned PCP 04/03/22 07/23/22 Bertram Elizabeth MD [address] [place] [address] Assigned PCP 10/02/22 04/29/23 documented as of this encounter
--- OUTSIDE RECORDS SUMMARY | 2024-06-05 20:29 | XMS_ITS | Encounter Summary ---
Author Organization [place] Address [address] [place] [address] Care Team Providers Care Sales Merchandise Associate Name Role Phone Bettye Gonzales MD Unavailable + Bonny Cooley MD Primary Care Provider Antony Chakraborty MD Unavailable Mateo Cheema MD Unavailable Ermias Colón MD Unavailable Suzanne Fernández RN Unavailable [phone] Bonny Cooley MD Unavailable [phone] Bonny Cooley MD Unavailable [phone] Pam Hernandez MD Unavailable [phone] Lázaro Horowitz MD Unavailable [phone] Jaime Grover MD Unavailable Toni Sheth MD Unavailable [phone] Toni Sheth MD Unavailable [phone] Bertram Elizabeth MD Unavailable Bonny Cooley MD Unavailable [phone] Aminata Youssef MD Primary Care Provider Bertram Elizabeht MD Unavailable Alex Johnson MD Unavailable [phone] Bonny Cooley MD Unavailable [phone] Bertram Elizabeth MD Unavailable Bertram Elizabeth MD Unavailable Reason for Visit * Reason Onset Date Comments Faintness 01/01/2017 Medication Question 01/01/2017 Lasix, and a rthritis/anti-depression med Encounter Details Date Type Department Care Team (Late st Contact Info) Description 01/01/2017 MyC Medical Advice [address] [address] Bonny Cooley MD [address] [address] Faintness; Medication Question (Lasix, and... Social History Tobacco Use Types Packs/Day Years Used Date Smoking Tobacco: Never Smokeless Tobacco: Never Alcohol Use Standard Drinks/Week Comments No 0 (1 standard drink = 0.6 oz pur e alcohol) Comments No Sex and Gender Information Value Date Recorded Sex Assigned at Female 08/28/2018 12:23 AM THIRD MATE Legal Sex Female 4:46 AM THIRD MATE Gender Identity Female 08/28/2018 12:23 AM THIRD MATE Sexual Orientation Straight 10/11/2019 2: 51 PM THIRD MATE documented as of this encounter Miscellaneous Notes * Telephone Encounter - Nolvia Townsend RN - 01/04/2017 4:49 PM CDT Message to patient with info from Dr. Cooley as below. MARY KATE Lorenzana, RN [facility] * Telephone Encounter - Bonny Cooley MD [...] neuro. DM * Telephone Encounter - Katlin Germain RN - 01/04/2017 7:20 AM CDT Lasix and pharmacy pended. Dr. Cooley-Please review and advise/sign if agree. Thank you! MARY KATE Johnson, RN documented in this encounter Plan of Treatment Upcoming Encounters Date Type Department Care Team (Late st Contact Info) Description 10/09/2024 2:30 PM THIRD MATE Office Visit [address] [address] Alex Johnson MD [address] [place] [address] documented as of this encounter Visit Diagnoses Diagnosis Generalized edema Edema documented in this encounter Additional Health Concerns Infection Onset Date Last Indicated Resolved Time COVID-19 06/23/2020 06/23/2020 07/14/2020 11:4 0 PM THIRD MATE Recovered COVID 07/08/2020 07/08/2020 09/21/2020 1 1:39 PM THIRD MATE Assessment Noted Time PHQ-9 Depression Total Score: 6 09/22/19 17 7:27 AM THIRD MATE documented as of this encounter Care Teams Sales Merchandise Associate Relationship Specialty Start Date End Date Bonny Cooley MD [address] [place] [address] PCP - General Family Practice 09/30/15 06/02/21 Bonny Cooley MD [address] [address] PCP - Assigned PCP 10/05/15 10/10/18 Aminata Youssef MD [facility] - [address] [address] PCP - General Internal Medicine 06/03/21 Bettye Gonzales MD Internal Medicine 04/10/15 Antony Chakraborty MD [address] [place] [address] INTERNAL MEDICINE - ENDOCRINOLOGY, DIABETES & METABOLISM 11/13/15 Mateo Cheema MD [address] [place] [address] Internal Medicine 08/06/16 Ermias Colón MD [address] [place] [address] Referring Physician Neurology 09/23/16 Suzanne Fernández, [facility] Chopper Operator Primary Care - CC 02/28/18 Bonny Cooley MD [address] [address] Assigned PCP 10/05/15 07/26/20 Pam Hernandez MD [address] [place] [address] [place] [address] Assigned Behavioral Health Provider 05/30/20 08/01/21 Lázaro Horowitz MD [address] [address] Assigned Rheumatology Provider 05/30/20 07/19/20 Jaime Grover MD [address] [place] [address] Assigned Gastroenterology Provider 05/30/20 11/14/21 Toni Sheth MD [address] [address] Assigned Pediatric Specialist Provider 05/30/20 09/07/20 Toni Sheth MD [address] [address] Assigned Surgical Provider 05/30/2006/28 Bertram Elizabeth MD [address] [place] [address] Assigned PCP 07/27/20 04/25/21 Bonny Cooley MD [address] [place] [address] Assigned PCP 04/26/21 08/15/21 Bertram Elizabeth MD 2270 [facility] 200 [place] [address] Assigned PCP 08/16/21 10/24/21 Alex Johnson MD [address] [place] [address] Assigned Rheumatology Provider 10/18/21 04/15/23 Bonny Cooley MD 2270 [facility] 200 [place] [address] Assigned PCP 10/25/21 04/02/22 Bertram Elizabeth MD [address] [place] [address] Assigned PCP 04/03/22 07/23/22 Bertram Elizabeth MD [address] [place] [address] Assigned PCP 10/02/22 04/29/23 documented as of this encounter
--- OUTSIDE RECORDS SUMMARY | 2024-06-05 20:29 | XMS_ITS | Encounter Summary ---
Author Organization [place] Address [address] [place] [address] Care Team Providers Care Loan Specialist Name Role Phone Bettye Gonzales MD Unavailable + Bonny Cooley MD Primary Care Provider Antony Chakraborty MD Unavailable Mateo Cheema MD Unavailable Ermias Colón MD Unavailable Suzanne Fernández RN Unavailable [phone] Bonny Cooley MD Unavailable [phone] Bonny Cooley MD Unavailable [phone] Pam Hernandez MD Unavailable [phone] Lázaro Horowitz MD Unavailable [phone] Jaime Grover MD Unavailable Toni Sheth MD Unavailable [phone] Toni Sheth MD Unavailable [phone] Bertram Elizabeth MD Unavailable Bonny Cooley MD Unavailable [phone] Aminata Youssef MD Primary Care Provider Bertram Elizabeth MD Unavailable Alex Johnson MD Unavailable [phone] Bonny Cooley MD Unavailable [phone] Bertram Elizabeth MD Unavailable Bertram Elizabeth MD Unavailable Reason for Visit * Reason Onset Date Comments Refill Request 12/08/2017 CELECOXIB 100MG CAPS Encounter Details Date Type Department Care Team (Late st Contact Info) Description 12/08/[address] [address] Bonny Cooley MD [address] [address] Refill Request (CELECOXIB 100MG CAPS) Social History Tobacco Use Types Packs/Day Years Used Date Smoking Tobacco: Former Cigarettes 2 3 0 04/23/1976 - 12/17/1977 Smokeless Tobacco: Never Alcohol Use Standard Drinks/Week Comments No 0 (1 standard drink = 0.6 oz pur e alcohol) Comments No Sex and Gender Information Value Date Recorded Sex Assigned at Female 08/28/2018 12:23 AM PRESSROOM FOREMAN Legal Sex Female 4:46 AM PRESSROOM FOREMAN Gender Identity Female 08/28/2018 12:23 AM PRESSROOM FOREMAN Sexual Orientation Straight 10/11/2019 2: 51 PM PRESSROOM FOREMAN documented as of this encounter Miscellaneous Notes [...] st Contact Info) Description 10/09/2024 2:30 PM PRESSROOM FOREMAN Office Visit [address] [place] [phone] Alex Johnson MD [address] [place] [address] 88 [place], [place] [address] documented as of this encounter Visit Diagnoses Diagnosis Osteoarthritis, unspecified osteoarthritis type, unspecified site documented in this encounter Additional Health Concerns Infection Onset Date Last Indicated Resolved Time COVID-19 06/23/2020 06/23/2020 07/14/2020 11:4 0 PM PRESSROOM FOREMAN Recovered COVID 07/08/2020 07/08/2020 09/21/2020 1 1:39 PM PRESSROOM FOREMAN Assessment Noted Time PHQ-9 Depression Total Score: 6 11/04/19 18 7:48 AM CDT documented as of this encounter Care Teams Loan Specialist Relationship Specialty Start Date End Date Bonny Cooley MD [address] [place] [address] PCP - General Family Practice 09/30/15 06/02/21 Bonny Cooley MD [address] [address] PCP - Assigned PCP 10/05/15 10/10/18 Aminata Youssef MD [facility] 2000 [place] [address] PCP - General Internal Medicine 06/03/21 Bettye Gonzales MD Internal Medicine 04/10/15 Antony Chakraborty MD 420 [facility] 101 [place] [address] INTERNAL MEDICINE - ENDOCRINOLOGY, DIABETES & METABOLISM 11/13/15 Mateo Cheema MD 420 [facility] 101 [place] [address] Internal Medicine 08/06/16 Ermias Colón MD [address] [address] Referring Physician Neurology 09/23/16 Suzanne Fernández, [facility] Retail Director Primary Care - CC 02/28/18 Bonny Cooley MD [address] [address] Assigned PCP 10/05/15 07/26/20 Pam Hernandez MD [address] [place] [address] [place] [address] Assigned Behavioral Health Provider 05/30/20 08/01/21 Lázaro Horowitz MD [facility] [address] [place] [address] Assigned Rheumatology Provider 05/30/20 07/19/20 Jaime Grover MD [address] [place] [address] Assigned Gastroenterology Provider 05/30/20 11/14/21 Toni Sheth MD [facility] [address] [place] [address] Assigned Pediatric Specialist Provider 05/30/20 09/07/20 Toni Sheth MD [facility] [address] [facility] 98 [place] [address] Assigned Surgical Provider 05/30/2006/28 Bertram Elizabeth MD 2270 [facility] 200 [place] [address] Assigned PCP 07/27/20 04/25/21 Bonny Cooley MD [address] [address] Assigned PCP 04/26/21 08/15/21 Bertram Elizabeth MD [address] [address] Assigned PCP 08/16/21 10/24/21 Alex Johnson MD [address] [place] [address] Assigned Rheumatology Provider 10/18/21 04/15/23 Bonny Cooley MD [address] [address] Assigned PCP 10/25/21 04/02/22 Bertram Elizabeth MD [address] [address] Assigned PCP 04/03/22 07/23/22 Bertram Elizabeth MD [address] [address] Assigned PCP 10/02/22 04/29/23 documented as of this encounter
--- OUTSIDE RECORDS SUMMARY | 2024-06-05 20:29 | XMS_ITS | Encounter Summary ---
Author Organization [place] Address [address] [place] [address] Care Team Providers Care Photographer News Name Role Phone Bettye Gonzales MD Unavailable + Bonny Cooley MD Primary Care Provider Antony Chakraborty MD Unavailable Mateo Cheema MD Unavailable Ermias Colón MD Unavailable Suzanne Fernández RN Unavailable [phone] Bonny Cooley MD Unavailable [phone] Bonny Cooley MD Unavailable [phone] Pam Hernandez MD Unavailable [phone] Lázaro Horowitz MD Unavailable [phone] Jaime Grover MD Unavailable Toni Sheth MD Unavailable +[phone] Toni Sheth MD Unavailable [phone] Bertram Elizabeth MD Unavailable Bonny Cooley MD Unavailable [phone] Aminata Youssef MD Primary Care Provider Bertram Elizabeth MD Unavailable [phone] Alex Johnson MD Unavailable Bonny Cooley MD Unavailable [phone] Bertram Elizabeth MD Unavailable [phone] Bertram Elizabeth MD Unavailable [phone] Encounter Details Date Type Department Care Team (Late st Contact Info) Description 12/14/2016 MyC Medical Advice [facility] Endocrinology [address] [facility] [address] [place] [address] Mateo Cheema MD [address] [facility] 101 [place] [address] Social History Tobacco Use Types Packs/Day Years Used Date Smoking Tobacco: Never Smokeless Tobacco: Never Alcohol Use Standard Drinks/Week Comments No 0 (1 standard drink = 0.6 oz pur e alcohol) Comments No Sex and Gender Information Value Date Recorded Sex Assigned at Female 08/28/2018 12:23 AM SURVEY PARTY CHIEF Legal Sex Female 4:46 AM SURVEY PARTY CHIEF Gender Identity Female 08/28/2018 12:23 AM SURVEY PARTY CHIEF Sexual Orientation Straight 10/11/2019 2: 51 PM SURVEY PARTY CHIEF documented as of this encounter Plan of Treatment Upcoming Encounters Date Type Department Care Team (Late st Contact Info) Description 10/09/2024 2:30 PM SURVEY PARTY CHIEF Office Visit [address] [address] Alex Johnson MD [address] [place] [address] 88 [place] [address] documented as of this encounter Visit Diagnoses Not on filedocumented in this encounter Additional Health Concerns Infection Onset Date Last Indicated Resolved Time COVID-19 06/23/2020 06/23/2020 07/14/2020 11:4 0 PM SURVEY PARTY CHIEF Recovered COVID 07/08/2020 07/08/2020 09/21/2020 1 1:39 PM SURVEY PARTY CHIEF Assessment Noted Time PHQ-9 Depression Total Score: 6 09/22/19 17 7:27 AM SURVEY PARTY CHIEF documented as of this encounter Care Teams Photographer News Relationship Specialty Start Date End Date Bonny Cooley MD [address] [place] [address] PCP - General Family Practice 09/30/15 06/02/21 Bonny Cooley MD [address] [id number] PCP - Assigned PCP 10/05/15 10/10/18 Aminata Youssef MD [facility] [address] [place] [address] PCP - General Internal Medicine 06/03/21 Bettye Gonzales MD Internal Medicine 04/10/15 Antony Chakraborty MD [address] [phone] INTERNAL MEDICINE - ENDOCRINOLOGY, DIABETES & METABOLISM 11/13/15 Mateo Cheema MD [address] [phone] Internal Medicine 08/06/16 Ermias Colón MD [address] [phone] Referring Physician Neurology 09/23/16 Suzanne Fernández, RN Clinic Power Barker Operator Primary Care - CC 02/28/18 Bonny Cooley MD [address] [address] Assigned PCP 10/05/15 07/26/20 Pam Hernandez MD [address] [place] [address] [place] [address] Assigned Behavioral Health Provider 05/30/20 08/01/21 Lázaro Horowitz MD [address] [address] Assigned Rheumatology Provider 05/30/20 07/19/20 Jaime Grover MD [address] [place] [address] Assigned Gastroenterology Provider 05/30/20 11/14/21 Toni Sheth MD [address] [address] Assigned Pediatric Specialist Provider 05/30/20 09/07/20 Toni Sheth MD [address] [address] Assigned Surgical Provider 05/30/2006/28 Bertram Elizabeth MD [address] [address] Assigned PCP 07/27/20 04/25/21 Bonny Cooley MD 0 [facility] 200 [place] [address] Assigned PCP 04/26/21 08/15/21 Bertram Elizabeth MD [address] [place] [address] Assigned PCP 08/16/21 10/24/21 Alex Johnson MD [address] [place] [address] Assigned Rheumatology Provider 10/18/21 04/15/23 Bonny Cooley MD [address] [place] [address] Assigned PCP 10/25/21 04/02/22 Bertram Elizabeth MD [address] [place] [address] Assigned PCP 04/03/22 07/23/22 Bertram Elizabeth MD [address] [place] [address] Assigned PCP 10/02/22 04/29/23 documented as of this encounter
--- OUTSIDE RECORDS SUMMARY | 2024-06-05 20:29 | XMS_ITS | Encounter Summary ---
Author Organization [place] Address [address] [place] [address] Care Team Providers Care Distribution Systems Serviceperson Name Role Phone Bettye Gonzales MD Unavailable + Bonny Cooley MD Primary Care Provider Antony Chakraborty MD Unavailable Mateo Cheema MD Unavailable Ermias Colón MD Unavailable Suzanne Fernández RN Unavailable [phone] Bonny Cooley MD Unavailable [phone] Bonny Cooley MD Unavailable [phone] Pam Hernandez MD Unavailable [phone] Lázaro Horowitz MD Unavailable [phone] Jaime Grover MD Unavailable Toni Sheth MD Unavailable [phone] Toni Sheth MD Unavailable [phone] Bertram Elizabeth MD Unavailable [phone] Bonny Cooley MD Unavailable [phone] Aminata Youssef MD Primary Care Provider [phone] Bertram Elizabeth MD Unavailable Alex Johnson MD Unavailable [phone] Bonny Cooley MD Unavailable [phone] Bertram Elizabeth MD Unavailable [phone] Bertram Elizabeth MD Unavailable [phone] Reason for Visit * Reason Onset Date Comments Refill Request 07/14/2017 methotrexate Encounter Details Date Type Department Care Team (Latest Contact Info) Description 07/14/2017 MyC Medical Advice [address] [address] Lázaro Horowitz MD [address] [address] Refill Request (methotrexate) Social History Tobacco Use Types Packs/Day Years Used Date Smoking Tobacco: Former Cigarettes 2 3 0 04/23/1976 - 12/17/1977 Smokeless Tobacco: Never Alcohol Use Standard Drinks/Week Comments No 0 (1 standard drink = 0.6 oz pur e alcohol) Comments No Sex and Gender Information Value Date Recorded Sex Assigned at Female 08/28/2018 12:23 AM NURSE EMERGENCY ROOM Legal Sex Female 4:46 AM NURSE EMERGENCY ROOM Gender Identity Female 08/28/2018 12:23 AM NURSE EMERGENCY ROOM Sexual Orientation Straight 10/11/2019 2: 51 PM NURSE EMERGENCY ROOM documented as of this encounter Miscellaneous Notes * Telephone Encounter - Esme Cabello RN - 07/14/2017 9:45 AM NURSE EMERGENCY ROOM Pt sent [facility] message that she is [...] 90 days) Aug 09, 2017 9:15 AM NURSE EMERGENCY ROOM Return Visit with Lázaro Horowitz MD [facility] ([facility] [address] [address] Routing refill request to provider for review/approval because: Drug not on the [facility], [facility] or [facility] refill protocol or controlled substance Vee, process engineering manager Nurse E EMERGENCY ROOM * Telephone Encounter - Ignacia Robertson RN - 07/14/2017 9:35 AM NURSE EMERGENCY ROOM Refill request for METHOTREXATE 20 QWK (THURSDAYS) [...] 0.72 04/12/2017 No results found for: URIC E EMERGENCY ROOM documented in this encounter Plan of Treatment Upcoming Encounters Date Type Department Care Team (Late st Contact Info) Description 10/09/2024 2:30 PM NURSE EMERGENCY ROOM Office Visit [address] [address] Alex Johnson MD [address] [place] [address] documented as of this encounter Visit Diagnoses Diagnosis Rheumatoid arthritis of multiple sites without rheumatoid factor (H) Rheumatoid arthritis documented in this encounter Additional Health Concerns Infection Onset Date Last Indicated Resolved Time COVID-19 06/23/2020 06/23/2020 07/14/2020 11:4 0 PM NURSE EMERGENCY ROOM Recovered COVID 07/08/2020 07/08/2020 09/21/2020 1 1:39 PM NURSE EMERGENCY ROOM Assessment Noted Time PHQ-9 Depression Total Score: 17 017 1:13 PM CDT documented as of this encounter Care Teams Distribution Systems Serviceperson Relationship Specialty Start Date End Date Bonny Cooley MD [address] [place] [address] PCP - General Family Practice 09/30/15 06/02/21 Bonny Cooley MD [address] [phone] PCP - Assigned PCP 10/05/15 10/10/18 Aminata Youssef MD [facility] 2000 [place] [address] PCP - General Internal Medicine 06/03/21 Bettye Gonzales MD Internal Medicine 04/10/15 Antony Chakraborty MD 420 [facility] 101 [place], [place] 34[address]65 INTERNAL MEDICINE - ENDOCRINOLOGY, DIABETES & METABOLISM 11/13/15 Mateo Cheema MD 420 [facility] 101 [place], [place] 775535 Internal Medicine 08/06/16 KatarzynaErmias barry MD [address] [place] [address] 101 [place] [address] Referring Physician Neurology 09/23/16 Suzanne Fernández, RN Clinic Belt Polisher Primary Care - CC 02/28/18 Bonny Cooley MD [address] [address] Assigned PCP 10/05/15 07/26/20 Pam Hernandez MD [address] [place] [address] [place] [address] Assigned Behavioral Health Provider 05/30/20 08/01/21 Lázaro Horowitz MD [address] [address] Assigned Rheumatology Provider 05/30/20 07/19/20 Jaime Grover MD [address] [place] [address] Assigned Gastroenterology Provider 05/30/20 11/14/21 Toni Sheth MD [address] [address] Assigned Pediatric Specialist Provider 05/30/20 09/07/20 Toni Sheth MD [address] [address] Assigned Surgical Provider 05/30/2006/28 Bertram Elizabeth MD [address] [facility] 200 [place] [address] Assigned PCP 07/27/20 04/25/21 Bonny Cooley MD 0 [facility] 200 [place] [address] Assigned PCP 04/26/21 08/15/21 Bertram Elizabeth MD 0 [facility] 200 [place] [address] Assigned PCP 08/16/21 10/24/21 Alex Johnson MD [address] [place] [address] Assigned Rheumatology Provider 10/18/21 04/15/23 Bonny Cooley MD 0 [facility] 200 [place] [address] Assigned PCP 10/25/21 04/02/22 Bertram Elizabeth MD [address] [place] [address] Assigned PCP 04/03/22 07/23/22 Bertram Elizabeth MD [address] [facility] 200 [place] [address] Assigned PCP 10/02/22 04/29/23 documented as of this encounter
--- OUTSIDE RECORDS SUMMARY | 2024-06-05 20:29 | XMS_ITS | Encounter Summary ---
Author Organization [place] Address [address] [place] [address] Care Team Providers Care Financial Associate Name Role Phone Bettye Gonzales MD Unavailable + Bonny Cooley MD Primary Care Provider [phone] Antony Chakraborty MD Unavailable Mateo Cheema MD Unavailable Ermias Colón MD Unavailable Suzanne Fernández RN Unavailable [phone] Bonny Cooley MD Unavailable [phone] Bonny Cooley MD Unavailable [phone] Pam Hernandez MD Unavailable [phone] Lázaro Horowitz MD Unavailable [phone] Jaime Grover MD Unavailable Toni Sheth MD Unavailable [phone] Toni Sheth MD Unavailable [phone] Bertram Elizabeth MD Unavailable Bonny Cooley MD Unavailable [phone] Aminata Youssef MD Primary Care Provider Bertram Elizabeth MD Unavailable [phone] Alex Johnson MD Unavailable [phone] Bonny Cooley MD Unavailable [phone] Bertram Elizabeth MD Unavailable [phone] Bertram Elizabeth MD Unavailable [phone] Encounter Details Date Type Department Care Team (Late st Contact Info) Description 01/25/2018 MyC Medical Advice [address] [address] Lázaro Horowitz MD [address] [address] Social History Tobacco Use Types Packs/Day Years Used Date Smoking Tobacco: Former Cigarettes 2 3 0 04/23/1976 - 12/17/1977 Smokeless Tobacco: Never Alcohol Use Standard Drinks/Week Comments No 0 (1 standard drink = 0.6 oz pur e alcohol) Comments No Sex and Gender Information Value Date Recorded Sex Assigned at Female 08/28/2018 12:23 AM STUDENT SERVICES DEAN Legal Sex Female 4:46 AM STUDENT SERVICES DEAN Gender Identity Female 08/28/2018 12:23 AM STUDENT SERVICES DEAN Sexual Orientation Straight 10/11/2019 2: 51 PM STUDENT SERVICES DEAN documented as of this encounter Plan of Treatment Upcoming Encounters Date Type Department Care Team (Late st Contact Info) Description 10/09/2024 2:30 PM STUDENT SERVICES DEAN Office Visit [address] [address] Alex Johnson MD [address] [place] [address] documented as of this encounter Visit Diagnoses Not on filedocumented in this encounter Additional Health Concerns Infection Onset Date Last Indicated Resolved Time COVID-19 06/23/2020 06/23/2020 07/14/2020 11:4 0 PM STUDENT SERVICES DEAN Recovered COVID 07/08/2020 07/08/2020 09/21/2020 1 1:39 PM STUDENT SERVICES DEAN Assessment Noted Time PHQ-9 Depression Total Score: 12 018 7:15 AM CDT documented as of this encounter Care Teams Financial Associate Relationship Specialty Start Date End Date Bonny Cooley MD [address] [place] [address] PCP - General Family Practice 09/30/15 06/02/21 Bonny Cooley MD [address] [phone] PCP - Assigned PCP 10/05/15 10/10/18 Aminata Youssef MD [facility] 2000 [place] [address] PCP - General Internal Medicine 06/03/21 Bettye Gonzales MD MD Internal Medicine 04/10/15 Antony Chakraborty MD [address] [phone] INTERNAL MEDICINE - ENDOCRINOLOGY, DIABETES & METABOLISM 11/13/15 Mateo Cheema MD [address] [address] Internal Medicine 08/06/16 Ermias Colón MD [address] 6[address] Referring Physician Neurology 09/23/16 Suzanne Fernández, RN Clinic Electronic Tester Primary Care - CC 02/28/18 Bonny Cooley MD [address] [address] Assigned PCP 10/05/15 07/26/20 Pam Hernandez MD [address] [place] [address] [address] [place], [place] 363461 Assigned Behavioral Health Provider 05/30/20 08/01/21 Lázaro Horowitz MD [address] [address] Assigned Rheumatology Provider 05/30/20 07/19/20 Jaime Grover MD [address] [place] [address] Assigned Gastroenterology Provider 05/30/20 11/14/21 Toni Sheth MD [address] [address] Assigned Pediatric Specialist Provider 05/30/20 09/07/20 Toni Sheth MD [address] [address] Assigned Surgical Provider 05/30/2006/28 Bertram Elizabeth MD 2270 [facility] 200 [place] [address] Assigned PCP 07/27/20 04/25/21 Bonny Cooley MD [address] [place] [address] Assigned PCP 04/26/21 08/15/21 Bertram Elizabeth MD [address] [place] [address] Assigned PCP 08/16/21 10/24/21 Alex Johnson MD [address] [place] [address] Assigned Rheumatology Provider 10/18/21 04/15/23 Bonny Cooley MD [address] [place] [address] Assigned PCP 10/25/21 04/02/22 Bertram Elizabeth MD [address] [place] [address] Assigned PCP 04/03/22 07/23/22 Bertram Elizabeth MD [address] [place] [address] Assigned PCP 10/02/22 04/29/23 documented as of this encounter
--- OUTSIDE RECORDS SUMMARY | 2024-06-05 20:29 | XMS_ITS | Encounter Summary ---
Author Organization [place] Address [address] [place] [address] Care Team Providers Care Lan Administrator Name Role Phone Bettye Gonzales MD Unavailable + Bonny Cooley MD Primary Care Provider Antony Chakraborty MD Unavailable Mateo Cheema MD Unavailable [phone] Ermias Colón MD Unavailable Suzanne Fernández RN Unavailable [phone] Bonny Cooley MD Unavailable [phone] Bonny Cooley MD Unavailable [phone] Pam Hernandez MD Unavailable [phone] Lázaro Horowitz MD Unavailable [phone] Jaime Grover MD Unavailable Toni Sheth MD Unavailable [phone] Toni Sheth MD Unavailable [phone] Bertram Elizabeth MD Unavailable [phone] Bonny Cooley MD Unavailable [phone] Aminata Youssef MD Primary Care Provider [phone] Bertram Elizabeth MD Unavailable [phone] Alex Johnson MD Unavailable [phone] Bonny Cooley MD Unavailable [phone] Bertram Elizabeth MD Unavailable [phone] Bertram Elizabeth MD Unavailable [phone] Reason for Referral * Audiology - Closed Specialty Diagnoses / Procedures Referred By Contac t Referred To Contact Diagnoses Change in hearing, bilateral Bonny Cooley MD [address] [place] [address] Phone: tel: fax: MULTIPLE LOCATIONS Referral ID Status Reason Start Date Expiration Date Visits Re quested Visits Authorized [id number] Closed 12/22/2016 12/22/2017 1 1 Comments Your provider has referred you to: [facility] [place] [email or web address] [email or web address] Specialty Testing: Audiogram w/Tymps and Reflexes (Comprehensive Audiology Evaluation) Reason for Visit * Reason Onset Date Comments Hearing change 12/21/2016 Encounter Details Date Type Department Care Team (Late st Contact Info) Description 12/21/2016 MyC Medical Advice [address] [address] Bonny Cooley MD [address] [address] Hearing change Social History Tobacco Use Types Packs/Day Years Used Date Smoking Tobacco: Never Smokeless Tobacco: Never Alcohol Use Standard Drinks/Week Comments No 0 (1 standard drink = 0.6 oz pur e alcohol) Comments No Sex and Gender Information Value Date Recorded Sex Assigned at Female 08/28/2018 12:23 AM SUPERINTENDENT PIER Legal Sex Female 4:46 AM SUPERINTENDENT PIER Gender Identity Female 08/28/2018 12:23 AM SUPERINTENDENT PIER Sexual Orientation Straight 10/11/2019 2: 51 PM SUPERINTENDENT PIER documented as of this encounter Miscellaneous Notes * Telephone Encounter - Katlin Germain RN - 12/22/2016 10:51 AM CDT Author'S Agent responded as per below. MARY KATE Johnson, [...] st Contact Info) Description 10/09/2024 2:30 PM SUPERINTENDENT PIER Office Visit [address] [place] [address] Alex Johnson MD [address] [place] [phone] Scheduled Referrals Name Type Priority Associated Diagnoses Orde r Schedule AUDIOLOGY ADULT REFERRAL Referral Routine Change in hearing, bilateral Ordered: 12/22/2016 documented as of this encounter Visit Diagnoses Diagnosis Change in hearing, bilateral- Primary documented in this encounter Additional Health Concerns Infection Onset Date Last Indicated Resolved Time COVID-19 06/23/2020 06/23/2020 07/14/2020 11:4 0 PM SUPERINTENDENT PIER Recovered COVID 07/08/2020 07/08/2020 09/21/2020 1 1:39 PM SUPERINTENDENT PIER Assessment Noted Time PHQ-9 Depression Total Score: 6 09/22/19 17 7:27 AM SUPERINTENDENT PIER documented as of this encounter Care Teams Lan Administrator Relationship Specialty Start Date End Date Bonny Cooley MD [address] [place] [address] PCP - General Family Practice 09/30/15 06/02/21 Bonny Cooley MD [address] [id number] PCP - Assigned PCP 10/05/15 10/10/18 Aminata Youssef MD [facility] 2000 [place] [address] PCP - General Internal Medicine 06/03/21 Bettye Gonzales MD Internal Medicine 04/10/15 Antony Chakraborty MD 420 [facility] 101 [place], [place] [address] INTERNAL MEDICINE - ENDOCRINOLOGY, DIABETES & METABOLISM 11/13/15 Mateo Cheema MD 420 [facility] 101 [place] [address] Internal Medicine 08/06/16 Ermias Colón, MD [address] [place] [address] 101 [place] [address] Referring Physician Neurology 09/23/16 Suzanne Fernández, RN Clinic Sintering Plant Supervisor Primary Care - CC 02/28/18 Bonny Cooley MD [address] [address] Assigned PCP 10/05/15 07/26/20 Pam Hernandez MD [address] [place] [address] [place] [address] Assigned Behavioral Health Provider 05/30/20 08/01/21 Lázaro Horowitz MD [address] [address] Assigned Rheumatology Provider 05/30/20 07/19/20 Jaime Grover MD [address] [place] [address] Assigned Gastroenterology Provider 05/30/20 11/14/21 Toni Sheth MD [address] [address] Assigned Pediatric Specialist Provider 05/30/20 09/07/20 Toni Sheth MD [address] [address] Assigned Surgical Provider 05/30/2006/28 Bertram Elizabeth MD 0 [facility] 200 [place] [address] Assigned PCP 07/27/20 04/25/21 Bonny Cooley MD 0 [facility] 200 [place] [address] Assigned PCP 04/26/21 08/15/21 Bertram Elizabeth MD 0 [facility] 200 [place] [address] Assigned PCP 08/16/21 10/24/21 Alex Johnson MD [address] [place] [address] Assigned Rheumatology Provider 10/18/21 04/15/23 Bonny Cooley MD 0 [facility] 200 [place] [address] Assigned PCP 10/25/21 04/02/22 Bertram Elizabeth MD 0 [facility] 200 [place] [address] Assigned PCP 04/03/22 07/23/22 Bertram Elizabeth MD 2270 [facility] 200 [place] [address] Assigned PCP 10/02/22 04/29/23 documented as of this encounter
[2024-06-05 20:46] LABS: Basophils Absolute Auto 0.05 K/uL (0.00-0.30); Basophils Percent Auto 0.5 % (0.0-3.0); Eosinophils Absolute Auto 0.32 K/uL (0.00-0.50); Eosinophils Percent Auto 3.4 % (0.0-7.0); Hematocrit 44.5 % (33.0-51.0); Hemoglobin* 13.9 gm/dL (12.0-16.0); Immature Granulocytes Abs Auto 0.01 K/uL (0.00-0.30); Immature Granulocytes Pct Auto 0.1 %; Lymphocytes Absolute Auto 2.57 K/uL (0.90-2.90); Lymphocytes Percent Auto 27.6 % (20-44); Mean Corpuscular HGB Conc 31 gm/dL (32-36); Mean Corpuscular Hemoglobin 32 pg (26-34); Mean Corpuscular Volume 101 fL (80-100); Monocytes Percent Auto 4.5 % (0.0-11.0); Neutrophils Absolute Auto 5.94 K/uL (1.7-7.0); Neutrophils Percent Auto 63.9 % (42.0-72.0); Platelet Count* 275 K/uL (140-440); RDW Coefficient of Variation % 14.5 % (11.5-15.5); White Blood Count* 9.31 K/uL (4.50-11.00)
[2024-06-05 20:49] LABS: Slide Review Reflex No
[2024-06-05 21:26] LABS: Albumin* 4.1 g/dL (3.3-5.0)
[2024-06-05 21:29] LABS: Aspartate Amino Transferase* 27 U/L (12-35); Creatinine* 0.8 mg/dL (0.5-1.5); Estimated Glomerular Filt Rate 75 ml/min
[2024-06-05 21:30] LABS: Alanine Aminotransferase* 22 U/L (4-35)
== END 2024-06-05 20:17 | disposition home or self-care (01) ==
LOC: NPINS 20:16
PROVIDERS: PCP Internal Medicine; Referring Provider Student in an Organized Health Care Education/Training Program; Visit Provider Student in an Organized Health Care Education/Training Program
DX: M06.09 Rheumatoid arthritis without rheumatoid factor, multiple sites (principal); Z79.899 Other long term (current) drug therapy
CPT/HCPCS: 82040; 82565; 84450; 84460; 85025

== ENCOUNTER 2024-10-28 13:56 | Inpatient (IN) | payer MEDICARE, OTHER, SELFPAY ==
[2024-10-28] VITALS (21 sets, daily range): BP systolic 151–183; BP diastolic 73–88; PULSE 73–87; RESP 15–30; TEMP 36.4–36.8; O2SAT 83–94; BMI 33.3; BMI 32.2
--- NOTE | 2024-10-28 13:58 | ED.GENADULT ---
HPI - General Adult General Date Seen: 10/28/24 Chief complaint: Shortness of Breath/Dyspnea Stated complaint: SOB/Back pain Time Seen by Provider: 10/28/24 13:57 History of Present Illness HPI narrative: 79-year-old female with a past medical history including hypertension (amlodipine, atenolol), rheumatoid arthritis (methotrexate), premature ventricular contractions, elevated BMI, sleep apnea, frailty, Per medical record she had a visit for low back pain in September 2023. Per that note she had been having back spasms for week. Per note she was very sedentary, typical only walks 15 ft. The like she was referred physical therapy. She also has a visit in August 2024 with about a year long history pain in her left lower breast. 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 Was apparently low likelihood to represent cardiac etiology at that time She has no known history of coronary disease or CHF. She does have a history of hypertension, and her daughter notes that it is not well controlled. She also has rheumatoid arthritis and is generally very sedentary She has been sick for the past several days. She has a little bit vague about when symptoms 1st started but she started noticing a sharp pain in her upper back, initially in the right shoulder blade perhaps less than a week ago. Several days at least. No known trauma. No fall. It just started during the afternoon when she was sitting up in her chair. Since then it has spread across her upper back and now affects both shoulder blades. It does not radiate down to the low back. It does not affect her flank. Her urination has been normal. No radiation of pain or numbness down her legs. No new focal weakness in her legs. She says the back pain reminds her of when she had a back ache from pneumonia many years ago when she was a young girl In addition to the back ache she has been developing a cough and some shortness of breath that started perhaps 2 days ago on Tuesday. Cough is largely nonproductive. Her daughter is noted that she seems more dyspneic and has labored breathing which is not usual for her. Also for the past couple of days she has had a mild ache in the front center of her chest. She has felt chilled but has not had an objective fever. She has been generally fatigued. No known contagious exposures She has chronic lower extremity edema which is not changed from baseline. Not worse or better. No recent travel. Other than being sedentary she has no recent immobilization. Related Data Home Medications ?Medication ?Instructions ?Recorded ?Confirmed cholecalciferol (vitamin D3) 25 1,000 unit PO DAILY 06/08/22 08/23/24 mcg (1,000 unit) tablet magnesium oxide 400 mg (241.3 mg 400 mg PO DAILY 06/08/22 08/23/24 magnesium) tablet methotrexate sodium 2.5 mg tablet 2.5 mg PO .Every 7 Days 06/08/22 08/23/24 cranberry 2 tab PO DAILY 09/20/22 08/23/24 acetaminophen 500 mg tablet 250 mg PO Q6H PRN 11/01/22 08/23/24 (Tylenol Extra Strength) ibuprofen 200 mg tablet 600 mg PO Q6H PRN 11/01/22 08/23/24 clobetasol 0.05 % topical ointment 1 applic topical QDAY PRN 03/28/23 08/23/24 folic acid 1 mg tablet 4 mg PO DAILY 08/23/24 08/23/24 Previous Rx's ?Medication ?Instructions ?Recorded atenolol 25 mg tablet 25 mg PO QAM #90 tabs 07/13/24 amlodipine 10 mg-benazepril 20 mg 1 cap PO DAILY #90 caps 10/09/24 capsule bupropion HCl 300 mg 24 hr tablet, 300 mg PO QAM #90 tabs 10/09/24 extended release Allergies Allergy/AdvReac Type Severity Reaction Status Date / Time milk Allergy Intermediate Verified 10/28/24 16:32 PFSH PFSH Surgical History History of total knee replacement (2018) ?Z96.659 - Presence of unspecified artificial knee joint (ICD-10) History of parathyroidectomy (2011) ?E89.2 - Postprocedural hypoparathyroidism (ICD-10) History of cholecystectomy ?Z90.49 - Acquired absence of other specified parts of digestive tract (ICD-10) History of section ?Z98.891 - History of uterine scar from previous surgery (ICD-10) Family History Father Brain cancer Mother Thyroid disease High blood pressure Social History (Updated 10/07/23 @ 13:47 by Willa Zavala ~ CTA) What is your current living situation?: I presently have a place to live Problems where you live: smoke detectors missing or not working and carbon monoxide detectors missing or not working In the past 12 months, utilities in danger of being shut off: no In past 12 months, lack of transportation kept you from medical appts, meetings, work, or getting things needed for daily living: no In the past 12 mos, have been you worried that your food would run out before you had money to buy more?: never true In the past 12 mos, the food you bought just didn't last and you didn't have money to buy more?: never true Smoking Status: Former smoker How often does anyone, including family, friends and others, physically hurt you: never How often does anyone, including family, friends and others, insult or talk down to you: sometimes How often does anyone, including family, friends and others, scream or curse at you: sometimes Health Related Social Needs: Inadequate housing (Z59.1) and Other personal risk factors, not elsewhere classified (Z91.89) Exam Narrative: Exam Narrative: Constitutional: Appears well-developed and well-nourished. Alert. Conversant. Non toxic. HENT: Head: Atraumatic. Nose: Nose normal. Mouth/Throat: Oral mucosa is clear and moist. no trismus. Pharynx normal. Tonsils symmetric. No tonsillar enlargement, erythema, or exudate. Eyes: Conjunctivae normal. EOM normal. Pupils equal, round, and reactive to light. No scleral icterus. Neck: Normal range of motion. Neck supple. No tracheal deviation present. No JVD Cardiovascular: Normal rate, regular rhythm. No gallop. No friction rub. No murmur heard. Symmetric radial and posterior tibial artery pulses Pulmonary/Chest: Effort normal. Sats were in the low 90s when laying back in bed but came up to the mid 90s when sitting up No stridor. No respiratory distress. No wheezes. No rales. No rhonchi . No tenderness. Abdominal: Soft. Bowel sounds normal. No distension. No mass. No tenderness. No rebound. No guarding. Musculoskeletal: RUE: Normal range of motion. No tenderness. No deformity LUE: Normal range of motion. No tenderness. No deformity RLE: Normal range of motion. 2+ nonpitting edema. No tenderness. No deformity LLE: Normal range of motion. 2+ nonpitting edema. No tenderness. No deformity Lymph: No cervical adenopathy. Neurological: Alert and oriented to person, place, and time. Normal strength. CN II-VII intact. No sensory deficit. GCS eye subscore is 4. GCS verbal subscore is 5. GCS motor subscore is 6. Normal coordination Skin: Skin is warm and dry. No rash noted. No pallor. Normal capillary refill. Psychiatric: Normal mood. Normal affect. Const: Vital Signs, click to edit/add: Vital Signs - 24 hr 10/28/24 14:00 10/28/24 14:43 10/28/24 14:44 Temperature 98.3 F Pulse Rate 79 78 Pulse Rate [Apical ] 87 Respiratory Rate 28 H 15 26 H Blood Pressure 155/83 H Blood Pressure [Ri ght Upper Arm] 183/83 H Pulse Oximetry 93 92 92 Oxygen Delivery Me thod Room Air 10/28/24 14:45 10/28/24 15:00 10/28/24 15:02 Temperature Pulse Rate 78 78 78 Pulse Rate [Apical ] Respiratory Rate 20 22 22 Blood Pressure 152/73 H Blood Pressure [Ri ght Upper Arm] Pulse Oximetry 92 92 93 Oxygen Delivery Me thod 10/28/24 15:03 10/28/24 15:16 10/28/24 15:22 Temperature Pulse Rate 81 77 78 Pulse Rate [Apical ] Respiratory Rate 27 H 29 H Blood Pressure 170/82 H Blood Pressure [Ri ght Upper Arm] Pulse Oximetry 94 91 93 Oxygen Delivery Me thod 10/28/24 15:30 10/28/24 15:45 10/28/24 16:00 Temperature Pulse Rate 79 76 76 Pulse Rate [Apical ] Respiratory Rate 22 24 23 Blood Pressure Blood Pressure [Ri ght Upper Arm] Pulse Oximetry 93 92 90 Oxygen Delivery Me thod 10/28/24 16:15 10/28/24 16:43 10/28/24 16:45 Temperature Pulse Rate 75 83 82 Pulse Rate [Apical ] Respiratory Rate 22 30 H Blood Pressure Blood Pressure [Ri ght Upper Arm] Pulse Oximetry 90 91 93 Oxygen Delivery Me thod Course Vital Signs Vital signs: Initial Vital Signs Temperature 98.3 F 10/28/24 14:00 Temperature Source Temporal Artery Scan 10/28/24 14:00 Pulse Rate 87 10/28/24 14:00 Pulse Rhythm Regular 10/28/24 14:00 Respiratory Rate 28 H 10/28/24 14:00 Blood Pressure 183/83 H 10/28/24 14:00 Blood Pressure Mean 116 H 10/28/24 14:00 Pulse Oximetry 93 10/28/24 14:00 Oxygen Delivery Method Room Air 10/28/24 14:00 Vital Signs Temperature 98.3 F 10/28/24 14:00 Pulse Rate 87 10/28/24 14:00 Respiratory Rate 28 H 10/28/24 14:00 Blood Pressure 183/83 H 10/28/24 14:00 Pulse Oximetry 93 10/28/24 14:00 Oxygen Delivery Method Room Air 10/28/24 14:00 Temperature 98.3 F 10/28/24 14:00 Pulse Rate 82 10/28/24 16:45 Respiratory Rate 30 H 10/28/24 16:45 Blood Pressure 170/82 H 10/28/24 15:22 Pulse Oximetry 93 10/28/24 16:45 Oxygen Delivery Method Room Air 10/28/24 14:00 Medications Administered Medications: Discontinued Medications Generic Name Dose Route Start Last Admin Trade Name Freq PRN Reason Stop Dose Admin Aspirin 324 mg 10/28/24 14:11 10/28/24 14:37 Aspirin 81 Mg Tab.Chew PO 10/28/24 14:12 324 mg ONCE ONE Administration Medical Decision Making MDM Narrative Medical decision making narrative: This patient presents to the ER today for evaluation of pain across her upper thoracic back associated with increased work of breathing and a sensation of shortness of breath. She is not hypoxic. She is not in severe respiratory requiring positive-pressure ventilation.. Differential was broad. No evidence of palpitations, syncope or other cardiac dysrhythmia. EKG shows sinus rhythm We considered possible ACS, however workup with EKG and troponin is negative. Troponin is normal. Given time since onset of symptoms with shortness of breath ongoing since at least Tuesday, I do not think the patient needs to be admitted for further sets of enzymes. EKG shows no evidence for pericarditis. Clinical presentation not suggestive of myocarditis. Chest x-ray shows no evidence for pneumonia, pneumothorax, pulmonary edema, pleural effusion, rib fracture, but does show a small left pleural effusion. No other definite pulmonary edema. And terminal proBNP level is fairly normal at 496. No wheezing or bronchospasm to suggest COPD/asthma. Also consider possibility of aortic dissection since she is having pain in her upper back. Mediastinum is normal on the x-ray, but she does have a left pleural effusion. Pulses are symmetric on exam in all 4 extremities. She does not describe the pain as ripping or tearing but more of just a back ache. We considered PE for this patient. Overall low risk but not 0 risk. Screening D-dimer is markedly abnormal at 7.5. Chest CT, PE protocol, is obtained and shows right-sided pulmonary embolism affecting the right main several branches in the right lung. There is evidence or some right heart strain and small pericardial effusion. However she has normal pulse, normal blood pressure. Oxygen sats are in the 90s while at rest but do drop to the high 80s with minimal exertion, for instance when we had her stand at the bedside to get a weight on the scale). At this point she is stable on 2 L nasal cannula. Discussed with our hospitalist, Dr. Victoria, who graciously agrees to admit for medical management, oxygen supplementation, and careful cardiopulmonary monitoring in the setting of this pulmonary embolism. At this point although there is radiographic evidence for right heart strain, with stable vital signs, I do not think she needs to be transferred for thrombectomy, and at this point there is no indication for systemic thrombolytics. Will initiate anticoagulation here in the ER. I had initially ordered heparin bolus and drip, but after consultation with hospitalist, Dr. Victoria requests that we start apixaban instead. Heparin was discontinued and apixaban was ordered . Lab Data Labs: Lab Results 10/28/24 10/28/24 Range/Units 14:43 15:02 WBC 10.03 (4.50-11.00) K/uL RBC 4.21 (4.00-5.20) m/uL Hgb 13.5 (12.0-16.0) gm/dL Hct 42.1 (33.0-51.0) % MCV 100 (80-100) fL MCH 32 (26-34) pg MCHC 32 (32-36) gm/dL RDW Coeff of Mike 14.8 (11.5-15.5) % Plt Count 240 (140-440) K/uL Neut % (Auto) 72.3 H (42.0-72.0) % Lymph % (Auto) 15.2 L (20-44) % [place] % (Auto) 8.1 (0.0-11.0) % Eos % (Auto) 3.7 (0.0-7.0) % Baso % (Auto) 0.4 (0.0-3.0) % Neut # (Auto) 7.30 H (1.7-7.0) K/uL Lymph # (Auto) 1.50 (0.90-2.90) K/uL [place] # (Auto) 0.80 (0.00-0.90) K/UL Eos # (Auto) 0.37 (0.00-0.50) K/uL Baso # (Auto) 0.04 (0.00-0.30) K/uL Abs Immat Gran (auto) 0.03 (0.00-0.30) K/uL Imm/Tot Granulo (auto) 0.3 % INR 0.97 (0.91-1.10) APTT 30 (23-33) Seconds D-Dimer Quant (PE/DVT) 7.75 H (0.00-0.50) ug/ml Sodium 145 (135-149) mmol/L Potassium 3.7 (3.6-5.1) mmol/L Chloride 114 (96-114) mmol/L Carbon Dioxide 25 (20-32) mmol/L Anion Gap 6 L (7-15) mEq/L BUN 22 (7-30) mg/dL Creatinine 0.7 (0.5-1.5) mg/dL Estimated Creat Clear 40.38 Estimated GFR 87 ml/min Glucose 104 (60-115) mg/dL Lactate 1.4 (0.5-1.9) mmol/L Calcium 9.6 (8.4-10.6) mg/dL Troponin I 0.02 (0.01-0.04) ng/mL NT-Pro-B Natriuret Pep 496 pg/mL SARS-CoV-2 (PCR) Negative SARS-CoV-2 (Negative) Influenza Type A (PCR) Negative PCR FLU A (Negative) Influenza Type B (PCR) Negative PCR FLU B (Negative) RSV (PCR) Negative PCR RSV (Negative) Imaging Data Chest x-ray: Attestation: I have reviewed the pertinent imaging results. My impression: Cardiomegaly. Clear lungs. No pneumonia. No pneumothorax. No obvious pulmonary edema. No pleural effusion. Kyphosis with demineralization of thoracic spine. Radiolog over read does see a left pleural effusion. Radiologist's impression: IMPRESSION: Left CP angle blunting may be related to pleural effusion or pleural thickening.. ECG Data Attestation: I personally reviewed and interpreted this ECG as follows: Interpretation: Normal sinus rhythm Rate: 81 HI: 166 QRS axis: Normal axis ST segment/T wave: Nonspecific T-wave abnormality. No ST segment elevation or depression. Artifact in lead 2, V4, V5, V6 gives the appearance of ST depression. QTc: 457 Compared to 06/10/2022 no definite change Discharge Plan Discharge Clinical Impression: Pulmonary embolism Patient Disposition: Admitted As Observation
--- OUTSIDE RECORDS SUMMARY | 2024-10-28 13:59 | XMS_ITS | Encounter Summary ---
Author Organization [facility] Address [address] [place] [address] Care Team Providers Care Auto Service Advisor Name Role Phone Bettye Gonzales MD Unavailable + Bonny Cooley MD Primary Care Provider Antony Chakraborty MD Unavailable [phone] Mateo Cheema MD Unavailable [phone] Ermias Colón MD Unavailable Pam Hernandez MD Unavailable [phone] Jaime Grover MD Unavailable [phone] Toni Sheth MD Unavailable Bertram Elizabeth MD Unavailable Bonny Cooley MD Unavailable [phone] Aminata Youssef MD Primary Care Provider Bertram Elizabeth MD Unavailable [phone] Alex Johnson MD Unavailable Bonny Cooley MD Unavailable [phone] Bertram Elizabeth MD Unavailable Bertram Elizabeth MD Unavailable Alex Johnson MD Unavailable Encounter Details Date Type Department Care Team (Late st Contact Info) Description 01/12/2021 MyC Medical Advice [facility] [address] [place] [address] Bonny Cooley MD [address] 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 needs [facility]. Patient given number. Thanks! Henrietta Gilliland RN documented in this encounter Plan of Treatment Upcoming Encounters Date Type Department Care Team (Late st Contact Info) Description 04/25/2025 1:30 PM CDT Office Visit [facility] [address] [phone] Alex Johnson MD [address] [place] [id number] documented as of this encounter Visit Diagnoses Not on filedocumented in this encounter Additional Health Concerns Assessment Noted Time PHQ-9 Depression Total Score: 11 020 2:18 PM CDT documented as of this encounter Care Teams Auto Service Advisor Relationship Specialty Start Date End Date Bonny Cooley MD [address] [place] [address] PCP - General Family Practice 09/30/15 06/02/21 Aminata Youssef MD [facility] - [address] [address] PCP - General Internal Medicine 06/03/21 Bettye Gonzales MD MD Internal Medicine 04/10/15 Antony Chakraborty MD [address] [address] MD INTERNAL MEDICINE - ENDOCRINOLOGY, DIABETES & METABOLISM 11/13/15 Mateo Cheema MD [address] 798[address] Internal Medicine 08/06/16 Ermias Colón MD [address] [id number] Referring Physician Neurology 09/23/16 Pam Hernandez MD [address] [place] [address] [place] [address] Assigned Behavioral Health Provider 05/30/20 08/01/21 Jaime Grover MD [address] [place] [address] Assigned Gastroenterology Provider 05/30/20 11/14/21 [place] [address] [place] [address] Assigned Surgical Provider 05/30/20 04/18/21 Bertram Elizabeth MD [address] [address] Assigned PCP 07/27/20 04/25/21 Bonny Cooley MD [address] [address] Assigned PCP 04/26/21 08/15/21 Bertram Elizabeth MD [address] [address] Assigned PCP 08/16/21 10/24/21 Alex Johnson MD [address] [place] [address] Assigned Rheumatology Provider 10/18/21 04/15/23 Bonny Cooley MD [address] [address] Assigned PCP 10/25/21 04/02/22 Bertram Elizabeth MD [address] [address] Assigned PCP 04/03/22 07/23/22 Bertram Elizabeth MD [address] [address] Assigned PCP 10/02/22 04/29/23 Alex Johnson MD [address] [place] [address] Rheumatology 10/04/24 documented as of this encounter
--- OUTSIDE RECORDS SUMMARY | 2024-10-28 13:59 | XMS_ITS | Encounter Summary ---
Author Organization [facility] Address [address] [place] [address] Care Team Providers Care Hydrographer Name Role Phone Bettye Gonzales MD Unavailable + Bonny Cooley MD Primary Care Provider [phone] Antony Chakraborty MD Unavailable Mateo Cheema MD Unavailable [phone] Ermias Colón MD Unavailable Bonny Cooley MD Unavailable [phone] Pam Hernandez MD Unavailable [phone] Lázaro Horowitz MD Unavailable Jaime Grover MD Unavailable Toni Sheth MD Unavailable Toni Sheth MD Unavailable Bertram Elizabeth MD Unavailable Bonny Cooley MD Unavailable [phone] Aminata Youssef MD Primary Care Provider Bertram Elizabeth MD Unavailable Alex Johnson MD Unavailable Bonny Cooley MD Unavailable [phone] Bertram Elizabeth MD Unavailable [phone] Bertram Elizabeth MD Unavailable [phone] Alex Johnson MD Unavailable [phone] Encounter Details Date Type Department Care Team (Late st Contact Info) Description 06/09/2020 MyC Medical Advice [facility] [address] [phone] Jaime Grover MD [address] [place] [address] Social History Tobacco Use Types Packs/Day Years Used Date Smoking Tobacco: Former Cigarettes 2 3 0 04/23/1976 - 12/17/1977 Smokeless Tobacco: Never Alcohol Use Standard Drinks/Week Comments No 0 (1 standard drink = 0.6 oz pur e alcohol) PHQ-2 Answer Date Recorded PHQ-2 Score 4 01/31/2020 Comments No Sex and Gender Information Value Date Recorded Sex Assigned at Female 08/28/2018 12:23 AM BOOSTER PUMP OILER Legal Sex Female 4:46 AM BOOSTER PUMP OILER Gender Identity Female 08/28/2018 12:23 AM BOOSTER PUMP OILER Sexual Orientation Straight 10/11/2019 2: 51 PM BOOSTER PUMP OILER COVID-19 Exposure Response Date Recorded In the last month, have you been in contact with someone who was confirmed or suspected to have Coronavirus / COVID-19? No / Unsure 06/06/2020 10:42 AM CDT documented as of this encounter Plan of Treatment Upcoming Encounters Date Type Department Care Team (Late Contact Info) Description 04/25/2025 1:30 PM CDT Office Visit [facility] [address] [phone] Alex Johnson MD [address] [place] [address] documented as of this encounter Visit Diagnoses Not on filedocumented in this encounter Additional Health Concerns Infection Onset Date Last Indicated Resolved Time COVID-19 06/23/2020 06/23/2020 07/14/2020 11:4 0 PM BOOSTER PUMP OILER Recovered COVID 07/08/2020 07/08/2020 09/21/2020 1 1:39 PM BOOSTER PUMP OILER Assessment Noted Time PHQ-9 Depression Total Score: 11 020 2:18 PM CDT documented as of this encounter Care Teams Hydrographer Relationship Specialty Start Date End Date Bonny Cooley MD [address] [place] [address] PCP - General Family Practice 09/30/15 06/02/21 Aminata Youssef MD [facility] [address] [address] PCP - General Internal Medicine 06/03/21 Bettye Gonzales MD MD Internal Medicine 04/10/15 Antony Chakraborty MD [address] [id number] INTERNAL MEDICINE - ENDOCRINOLOGY, DIABETES & METABOLISM 11/13/15 Mateo Cheema MD [address] [facility] [address] [address] Internal Medicine 08/06/16 Ermias Colón MD [address] [facility] [address] [id number] Referring Physician Neurology 09/23/16 Bonny Cooley MD [address] [address] Assigned PCP 10/05/15 07/26/20 Pam Hernandez MD [address] [place] [address] [place] [address] Assigned Behavioral Health Provider 05/30/20 08/01/21 Lázaro Horowitz MD [facility] [address] [place] [address] Assigned Rheumatology Provider 05/30/20 07/19/20 Jaime Grover MD [address] [place] [address] Assigned Gastroenterology Provider 05/30/20 11/14/21 [place] [address] [place] [address] [id number] Assigned Pediatric Specialist Provider 05/30/20 09/07/20 Toni Sheth MD [address] [place] [address] Assigned Surgical Provider 05/30/20 04/18/21 Bertram Elizabeth MD [address] [address] Assigned PCP 07/27/20 04/25/21 Bonny Cooley MD [address] [address] Assigned PCP 04/26/21 08/15/21 Bertram Elizabeth MD [address] [address] Assigned PCP 08/16/21 10/24/21 Alex Johnson MD [address] [place] [address] Assigned Rheumatology Provider 10/18/21 04/15/23 Bonny Cooley MD [address] [address] Assigned PCP 10/25/21 04/02/22 Bertram Elizabeth MD [address] [address] Assigned PCP 04/03/22 07/23/22 Bertram Elizabeth MD [address] [address] Assigned PCP 10/02/22 04/29/23 Alex Johnson MD [address] [place] [address] Rheumatology 10/04/24 documented as of this encounter
--- OUTSIDE RECORDS SUMMARY | 2024-10-28 13:59 | XMS_ITS | Encounter Summary ---
Author Organization [place] Address [address] [place] [address] Care Team Providers Care Supervisor Shed Workers Name Role Phone Bettye Gonzales MD Unavailable + Bonny Cooley MD Primary Care Provider Antony Chakraborty MD Unavailable Mateo Cheema MD Unavailable Ermias Colón MD Unavailable Bonny Cooley MD Unavailable [phone] Pam Hernandez MD Unavailable [phone] Lázaro Horowitz MD Unavailable Jaime Grover MD Unavailable Toni Sheth MD Unavailable Toni Sheth MD Unavailable Bertram Elizabeth MD Unavailable Bonny Cooley MD Unavailable [phone] Aminata Youssef MD Primary Care Provider Bertram Elizabeth MD Unavailable [phone] Alex Johnson MD Unavailable Bonny Cooley MD Unavailable [phone] Bertram Elizabeth MD Unavailable [phone] Bertram Elizabeth MD Unavailable [phone] Alex Johnson MD Unavailable Encounter Details Date Type Department Care Team (Late st Contact Info) Description 06/18/2020 MyC Medical Advice [facility] [address] [address] Jaime Grover MD [address] [place] [address] Social History Tobacco Use Types Packs/Day [...] Assigned at Female 08/28/2018 12:23 AM SALES AND PRODUCTION MANAGER Legal Sex Female 4:46 AM SALES AND PRODUCTION MANAGER Gender Identity Female 08/28/2018 12:23 AM SALES AND PRODUCTION MANAGER Sexual Orientation Straight 10/11/2019 2: 51 PM SALES AND PRODUCTION MANAGER COVID-19 Exposure Response Date Recorded In the last month, have you been in contact with someone who was confirmed or suspected to have Coronavirus / COVID-19? No / Unsure 06/06/2020 10:42 AM CDT documented as of this encounter Plan of Treatment Upcoming Encounters Date Type Department Care Team (Late Contact Info) Description 04/25/2025 1:30 PM CDT Office Visit [facility] [address] [phone] Alex Johnson MD [address] [place] [address] documented as of this encounter Visit Diagnoses Not on filedocumented in this encounter Additional Health Concerns Infection Onset Date Last Indicated Resolved Time COVID-19 06/23/2020 06/23/2020 07/14/2020 11:4 0 PM SALES AND PRODUCTION MANAGER Recovered COVID 07/08/2020 07/08/2020 09/21/2020 1 1:39 PM SALES AND PRODUCTION MANAGER Assessment Noted Time PHQ-9 Depression Total Score: 11 020 2:18 PM CDT documented as of this encounter Care Teams Supervisor Shed Workers Relationship Specialty Start Date End Date Bonny Cooley MD [address] [place] [address] PCP - General Family Practice 09/30/15 06/02/21 Aminata Youssef MD [facility] & [address] [address] PCP - General Internal Medicine 06/03/21 Bettye Gonzales MD MD Internal Medicine 04/10/15 Antony Chakraborty MD [address] [id number] INTERNAL MEDICINE - ENDOCRINOLOGY, DIABETES & METABOLISM 11/13/15 Mateo Cheema MD 420 [facility] [address] [address] Internal Medicine 08/06/16 Ermias Colón MD 420 [facility] [address] [address] Referring Physician Neurology 09/23/16 Bonny Cooley MD [address] [address] Assigned PCP 10/05/15 07/26/20 Pam Hernandez MD [address] [place] [address] [place] [address] Assigned Behavioral Health Provider 05/30/20 08/01/21 Lázaro Horowitz MD [facility] [address] [place] [address] Assigned Rheumatology Provider 05/30/20 07/19/20 Jaime Grover MD [address] [place] [address] Assigned Gastroenterology Provider 05/30/20 11/14/21 [place] [address] [place] [address] [id number] Assigned Pediatric Specialist Provider 05/30/20 09/07/20 Toni Sheth MD [address] [place] [place] [address] Assigned Surgical Provider 05/30/20 04/18/21 Bertram Elizabeth MD [address] [address] Assigned PCP 07/27/20 04/25/21 Bonny Cooley MD [address] [address] Assigned PCP 04/26/21 08/15/21 Bertram Elizabeth MD [address] [address] Assigned PCP 08/16/21 10/24/21 Alex Johnson MD [address] [place] [address] Assigned Rheumatology Provider 10/18/21 04/15/23 Bonny Cooley MD [address] [address] Assigned PCP 10/25/21 04/02/22 Bertram Elizabeth MD [address] [address] Assigned PCP 04/03/22 07/23/22 Bertram Elizabeth MD [address] [address] Assigned PCP 10/02/22 04/29/23 Alex Johnson MD [address] [place] [address] Rheumatology 10/04/24 documented as of this encounter
--- OUTSIDE RECORDS SUMMARY | 2024-10-28 13:59 | XMS_ITS | Encounter Summary ---
Author Organization [place] Address [address] [place] [address] Care Team Providers Care Cloud Operations Engineer Name Role Phone Bettye Gonzales MD Unavailable + Bonny Cooley MD Primary Care Provider Antony Chakraborty MD Unavailable Mateo Cheema MD Unavailable Ermias Colón MD Unavailable Bonny Cooley MD Unavailable [phone] Pam Hernandez MD Unavailable [phone] Lázaro Horowitz MD Unavailable Jaime Grover MD Unavailable [phone] Toni Sheth MD Unavailable Toni Sheth MD Unavailable Bertram Elizabeth MD Unavailable Bonny Cooley MD Unavailable [phone] Aminata Youssef MD Primary Care Provider Bertram Elizabeth MD Unavailable Alex Johnson MD Unavailable [phone] Bonny Cooley MD Unavailable [phone] Bertram Elizabeth MD Unavailable [phone] Bertram Elizabeth MD Unavailable [phone] Alex Johnson MD Unavailable [phone] Encounter Details Date Type Department Care Team (Late st Contact Info) Description 07/02/2020 MyC Medical Advice [facility] [address] [address] Jaime Grover MD [address] [place] [address] Social History Tobacco Use Types Packs/Day Years Used Date Smoking Tobacco: Former Cigarettes 2 3 0 04/23/1976 - 12/17/1977 Smokeless Tobacco: Never Alcohol Use Standard Drinks/Week Comments No 0 (1 standard drink = 0.6 oz pur e alcohol) PHQ-2 Answer Date Recorded PHQ-2 Score 4 01/31/2020 Comments No Sex and Gender Information Value Date Recorded Sex Assigned at Female 08/28/2018 12:23 AM FINANCIAL ACCOUNTING ANALYST Legal Sex Female 4:46 AM FINANCIAL ACCOUNTING ANALYST Gender Identity Female 08/28/2018 12:23 AM FINANCIAL ACCOUNTING ANALYST Sexual Orientation Straight 10/11/2019 2: 51 PM FINANCIAL ACCOUNTING ANALYST COVID-19 Exposure Response Date Recorded In the last month, have you been in contact with someone who was confirmed or suspected to have Coronavirus / COVID-19? No / Unsure 06/23/2020 10:33 AM FINANCIAL ACCOUNTING ANALYST documented as of this encounter Plan of Treatment Upcoming Encounters Date Type Department Care Team (Late st Contact Info) Description 04/25/2025 1:30 PM CDT Office Visit [facility] [address] [phone] Alex Johnson MD [address] [place] [address] documented as of this encounter Visit Diagnoses Not on filedocumented in this encounter Additional Health Concerns Infection Onset Date Last Indicated Resolved Time COVID-19 06/23/2020 06/23/2020 07/14/2020 11:4 0 PM FINANCIAL ACCOUNTING ANALYST Recovered COVID 07/08/2020 07/08/2020 09/21/2020 1 1:39 PM FINANCIAL ACCOUNTING ANALYST Assessment Noted Time PHQ-9 Depression Total Score: 11 020 2:18 PM CDT documented as of this encounter Care Teams Cloud Operations Engineer Relationship Specialty Start Date End Date Bonny Cooley MD [address] [place] [address] PCP - General Family Practice 09/30/15 06/02/21 Aminata Youssef MD [facility] & [address] [address] PCP - General Internal Medicine 06/03/21 Bettye Gonzales MD MD Internal Medicine 04/10/15 Antony Chakraborty MD 420 [facility] [address] [phone] INTERNAL MEDICINE - ENDOCRINOLOGY, DIABETES & METABOLISM 11/13/15 Mateo Cheema MD [address] [facility] [address] [phone] Internal Medicine 08/06/16 Ermias Colón MD 420 [facility] [address] 8378[address] Referring Physician Neurology 09/23/16 Bonny Cooley MD [address] [address] Assigned PCP 10/05/15 07/26/20 Pam Hernandez MD [address] [place] [address] [place] [address] Assigned Behavioral Health Provider 05/30/20 08/01/21 Lázaro Horowitz MD [facility] [address] [place] [address] Assigned Rheumatology Provider 05/30/20 07/19/20 Jaime Grover MD [address] [place] [address] Assigned Gastroenterology Provider 05/30/20 11/14/21 [place] [address] [place] [address] [phone] Assigned Pediatric Specialist Provider 05/30/20 09/07/20 Toni Sheth MD [address] [place] [address] Assigned Surgical Provider 05/30/20 04/18/21 Bertram Elizabeth MD [address] [address] Assigned PCP 07/27/20 04/25/21 Bonny Cooley MD [address] [address] Assigned PCP 04/26/21 08/15/21 Bertram Elizabeth MD [address] [address] Assigned PCP 08/16/21 10/24/21 Alex Johnson MD [address] [place] [address] Assigned Rheumatology Provider 10/18/21 04/15/23 Bonny Cooley MD [address] [address] Assigned PCP 10/25/21 04/02/22 Bertram Elizabeth MD [address] [address] Assigned PCP 04/03/22 07/23/22 Bertram Elizabeth MD [address] [address] Assigned PCP 10/02/22 04/29/23 Alex Johnson MD [address] [place] [address] Rheumatology 10/04/24 documented as of this encounter
--- OUTSIDE RECORDS SUMMARY | 2024-10-28 13:59 | XMS_ITS | Encounter Summary ---
Author Organization [place] Address [address] [place] [address] Care Team Providers Care Manager Radiation Name Role Phone Bettye Gonzales MD Unavailable + Bonny Cooley MD Primary Care Provider [phone] Antony Chakraborty MD Unavailable Mateo Cheema MD Unavailable [phone] Ermias Colón MD Unavailable Bonny Cooley MD Unavailable [phone] Pam Hernandez MD Unavailable [phone] Lázaro Horowitz MD Unavailable Jaime Grover MD Unavailable Toni Sheth MD Unavailable Toni Sheth MD Unavailable Bertram Elizabeth MD Unavailable Bonny Cooley MD Unavailable [phone] Aminata Youssef MD Primary Care Provider Bertram Elizabeth MD Unavailable Alex Johnson MD Unavailable [phone] Bonny Cooley MD Unavailable [phone] Bertram Elizabeth MD Unavailable [phone] Bertram Elizabeth MD Unavailable [phone] Alex Johnson MD Unavailable [phone] Encounter Details Date Type Department Care Team (Late st Contact Info) Description 07/02/2020 MyC Medical Advice [facility] [address] [facility] [address] [place] [address] Adriane Parish RN Social History [...] Sex Assigned at Female 08/28/2018 12:23 AM ITALIAN TUTOR Legal Sex Female 4:46 AM ITALIAN TUTOR Gender Identity Female 08/28/2018 12:23 AM ITALIAN TUTOR Sexual Orientation Straight 10/11/2019 2: 51 PM ITALIAN TUTOR COVID-19 Exposure Response Date Recorded In the last month, have you been in contact with someone who was confirmed or suspected to have Coronavirus / COVID-19? No / Unsure 06/23/2020 10:33 AM ITALIAN TUTOR documented as of this encounter Plan of Treatment Upcoming Encounters Date Type Department Care Team (Late st Contact Info) Description 04/25/2025 1:30 PM CDT Office Visit [facility] [address] [address] Alex Johnson MD [address] [place] [address] documented as of this encounter Visit Diagnoses Not on filedocumented in this encounter Additional Health Concerns Infection Onset Date Last Indicated Resolved Time COVID-19 06/23/2020 06/23/2020 07/14/2020 11:4 0 PM ITALIAN TUTOR Recovered COVID 07/08/2020 07/08/2020 09/21/2020 1 1:39 PM ITALIAN TUTOR Assessment Noted Time PHQ-9 Depression Total Score: 11 020 2:18 PM CDT documented as of this encounter Care Teams Manager Radiation Relationship Specialty Start Date End Date Bonny Cooley MD [address] [place] [address] PCP - General Family Practice 09/30/15 06/02/21 Aminata Youssef MD [facility] [address] [place] [address] PCP - General Internal Medicine 06/03/21 Bettye Gonzales MD MD Internal Medicine 04/10/15 Antony Chakraborty MD [address] [phone] INTERNAL MEDICINE - ENDOCRINOLOGY, DIABETES & METABOLISM 11/13/15 Mateo Cheema MD [address] 337[address] Internal Medicine 08/06/16 Ermias Colón MD [address] [address]22[address] Referring Physician Neurology 09/23/16 Bonny Cooley MD [address] [address] Assigned PCP 10/05/15 07/26/20 Pam Hernandez MD [address] [place] [address] MALLY LYNNE [address] Assigned Behavioral Health Provider 05/30/20 08/01/21 Lázaro Horowitz MD [facility] [address] [place] [address] Assigned Rheumatology Provider 05/30/20 07/19/20 Jaime Grover MD [address] [place] [address] Assigned Gastroenterology Provider 05/30/20 11/14/21 Toni Sheth MD [address] [place] [address] Assigned Pediatric Specialist Provider 05/30/20 09/07/20 Toni Sheth MD [address] [place] [address] Assigned Surgical Provider 05/30/20 04/18/21 Bertram Elizabeth MD [address] [place] [address] Assigned PCP 07/27/20 04/25/21 Bonny Cooley MD [address] [address] Assigned PCP 04/26/21 08/15/21 Bertram Elizabeth MD 0 [facility] 200 [place] [address] Assigned PCP 08/16/21 10/24/21 Alex Johnson MD [address] [address] Assigned Rheumatology Provider 10/18/21 04/15/23 Bonny Cooley MD [address] [address] Assigned PCP 10/25/21 04/02/22 Bertram Elizabeth MD [address] [address] Assigned PCP 04/03/22 07/23/22 Bertram Elizabeth MD [address] [address] Assigned PCP 10/02/22 04/29/23 Alex Johnson MD [address] [place] [address] Rheumatology 10/04/24 documented as of this encounter
--- OUTSIDE RECORDS SUMMARY | 2024-10-28 13:59 | XMS_ITS | Encounter Summary ---
Author Organization [place] Address [address] [place] [address] Care Team Providers Care Dish Maker Name Role Phone Bettye Gonzales MD Unavailable + Bonny Cooley MD Primary Care Provider Antony Chakraborty MD Unavailable [phone] Mateo Cheema MD Unavailable [phone] Ermias Colón MD Unavailable Pam Hernandez MD Unavailable Jaime Grover MD Unavailable Toni Sheth MD Unavailable Bertram Elizabeth MD Unavailable Bonny Cooley MD Unavailable [phone] Aminata Youssef MD Primary Care Provider Bertram Elizabeth MD Unavailable Alex Johnson MD Unavailable Bonny Cooley MD Unavailable [phone] Bertram Elizabeth MD Unavailable Bertram Elizabeth MD Unavailable Alex Johnson MD Unavailable Encounter Details Date Type Department Care Team (Late st Contact Info) Description 02/25/2021 MyC Medical Advice [facility] [address] [address] Karen Villagran CMA Social History [...] Sex Assigned at Female 08/28/2018 12:23 AM THREAD REELER Legal Sex Female 4:46 AM THREAD REELER Gender Identity Female 08/28/2018 12:23 AM THREAD REELER Sexual Orientation Straight 10/11/2019 2: 51 PM THREAD REELER documented as of this encounter Plan of Treatment Upcoming Encounters Date Type Department Care Team (Late st Contact Info) Description 04/25/2025 1:30 PM CDT Office Visit [facility] [address] [phone] Alex Johnson MD [address] [place] [address] [id number] documented as of this encounter Visit Diagnoses Not on filedocumented in this encounter Additional Health Concerns Assessment Noted Time PHQ-9 Depression Total Score: 11 020 2:18 PM CDT documented as of this encounter Care Teams Dish Maker Relationship Specialty Start Date End Date Bonny Cooley MD [address] [place] [address] PCP - General Family Practice 09/30/15 06/02/21 Aminata Youssef MD [facility] [address] [place] [address] PCP - General Internal Medicine 06/03/21 Bettye Gonzales MD Internal Medicine 04/10/15 Antony Chakraborty MD [address] [address] MD INTERNAL MEDICINE - ENDOCRINOLOGY, DIABETES & METABOLISM 11/13/15 Mateo Cheema MD [address] [address] MD Internal Medicine 08/06/16 Ermias Colón MD [address] [address] Referring Physician Neurology 09/23/16 Pam Hernandez MD [address] [place] [address] [place] [address] Assigned Behavioral Health Provider 05/30/20 08/01/21 Jaime Grover MD [address] [place] [address] Assigned Gastroenterology Provider 05/30/20 11/14/21 Toni Sheth MD [address] [place] [address] Assigned Surgical Provider 05/30/20 04/18/21 Bertram Elizabeth MD 0 [facility] [address] [place] [address] Assigned PCP 07/27/20 04/25/21 Bonny Cooley MD [address] [address] Assigned PCP 04/26/21 08/15/21 Bertram Elizabeth MD [address] [address] Assigned PCP 08/16/21 10/24/21 Alex Johnson MD [address] [place] [address] Assigned Rheumatology Provider 10/18/21 04/15/23 Bonny Cooley MD [address] [address] Assigned PCP 10/25/21 04/02/22 Bertram Elizabeth MD [address] [address] Assigned PCP 04/03/22 07/23/22 Bertram Elizabeth MD [address] [address] Assigned PCP 10/02/22 04/29/23 Alex Johnson MD [address] [place] [address] Rheumatology 10/04/24 documented as of this encounter
--- OUTSIDE RECORDS SUMMARY | 2024-10-28 13:59 | XMS_ITS | Encounter Summary ---
Author Organization [place] Address [address] [place] [address] Care Team Providers Care Field Nurse Case Manager Name Role Phone Bettye Gonzales MD Unavailable + Bonny Cooley MD Primary Care Provider [phone] Antony Chakraborty MD Unavailable Mateo Cheema MD Unavailable Ermias Colón MD Unavailable Bonny Cooley MD Unavailable [phone] Pam Hernandez MD Unavailable [phone] Lázaro Horowitz MD Unavailable Jaime Grover MD Unavailable Toni Sheth MD Unavailable Toni Sheth MD Unavailable Bertram Elizabeth MD Unavailable Bonny Cooley MD Unavailable [phone] Aminata Youssef MD Primary Care Provider Bertram Elizabeth MD Unavailable Alex Johnson MD Unavailable [phone] Bonny Cooley MD Unavailable [phone] Bertram Elizabeth MD Unavailable [phone] Bertram Elizabeth MD Unavailable Alex Johnson MD Unavailable Encounter Details Date Type Department Care Team (Late st Contact Info) Description 07/11/2020 MyC Medical Advice [facility] [address] [place] [address] Bonny Cooley MD [address] [address] Social History Tobacco Use Types [...] Sex Assigned at Female 08/28/2018 12:23 AM BALLOON PILOT Legal Sex Female 4:46 AM BALLOON PILOT Gender Identity Female 08/28/2018 12:23 AM BALLOON PILOT Sexual Orientation Straight 10/11/2019 2: 51 PM BALLOON PILOT COVID-19 Exposure Response Date Recorded In the last month, have you been in contact with someone who was confirmed or suspected to have Coronavirus / COVID-19? No / Unsure 07/08/2020 8:58 AM BALLOON PILOT documented as of this encounter Plan of Treatment Upcoming Encounters Date Type Department Care Team (Late st Contact Info) Description 04/25/2025 1:30 PM CDT Office Visit [facility] [address] [phone] Alex Johnson MD [address] [place] [address] documented as of this encounter Visit Diagnoses Not on filedocumented in this encounter Additional Health Concerns Infection Onset Date Last Indicated Resolved Time COVID-19 06/23/2020 06/23/2020 07/14/2020 11:4 0 PM BALLOON PILOT Recovered COVID 07/08/2020 07/08/2020 09/21/2020 1 1:39 PM BALLOON PILOT Assessment Noted Time PHQ-9 Depression Total Score: 11 020 2:18 PM CDT documented as of this encounter Care Teams Field Nurse Case Manager Relationship Specialty Start Date End Date Bonny Coolye MD [address] [place] [address] PCP - General Family Practice 09/30/15 06/02/21 Aminata Youssef MD [facility] & [address] [address] PCP - General Internal Medicine 06/03/21 Bettye Gonzales MD Internal Medicine 04/10/15 Antony Chakraborty MD [address] [address] INTERNAL MEDICINE - ENDOCRINOLOGY, DIABETES & METABOLISM 11/13/15 Mateo Cheema MD [address] 6[address] Internal Medicine 08/06/16 Ermias Colón MD [address] [address] Referring Physician Neurology 09/23/16 Bonny Cooley MD [address] [address] Assigned PCP 10/05/15 07/26/20 Pam Hernandez MD [address] [place] [address] [place] [address] Assigned Behavioral Health Provider 05/30/20 08/01/21 Lázaro Horowitz MD [address] [address] Assigned Rheumatology Provider 05/30/20 07/19/20 Jaime Grover MD [address] [place] [address] Assigned Gastroenterology Provider 05/30/20 11/14/21 Toni Sheth MD [address] [place] [address] [phone] Assigned Pediatric Specialist Provider 05/30/20 09/07/20 Toni Sheth MD [address] [place] [address] [phone] Assigned Surgical Provider 05/30/20 04/18/21 Bertram Elizabeth MD [address] [address] Assigned PCP 07/27/20 04/25/21 Bonny Cooley MD [address] [address] Assigned PCP 04/26/21 08/15/21 Bertram Elizabeth MD [address] [address] Assigned PCP 08/16/21 10/24/21 Alex Johnson MD [address] [place] [address] Assigned Rheumatology Provider 10/18/21 04/15/23 Bonny Cooley MD [address] [place] [address] Assigned PCP 10/25/21 04/02/22 Bertram Elizabeth MD [address] [place] [address] Assigned PCP 04/03/22 07/23/22 Bertram Elizabeth MD [address] [place] [address] Assigned PCP 10/02/22 04/29/23 Alex Johnson MD [address] [place] [address] Rheumatology 10/04/24 documented as of this encounter
--- OUTSIDE RECORDS SUMMARY | 2024-10-28 13:59 | XMS_ITS | Encounter Summary ---
Author Organization [facility] Address [address] [place] [address] Care Team Providers Care Refinery Operator Helper Cracking Unit Name Role Phone Bettye Gonzales MD Unavailable + Bonny Cooley MD Primary Care Provider Antony Chakraborty MD Unavailable Mateo Cheema MD Unavailable Ermias Colón MD Unavailable Bonny Cooley MD Unavailable [phone] Pam Hernandez MD Unavailable [phone] Lázaro Horowitz MD Unavailable Jaime Grover MD Unavailable Toni Sheth MD Unavailable Toni Sheth MD Unavailable Bertram Elizabeth MD Unavailable Bonny Cooley MD Unavailable [phone] Aminata Youssef MD Primary Care Provider [phone] Bertram Elizabeth MD Unavailable Alex Johnson MD Unavailable Bonny Cooley MD Unavailable [phone] Bertram Elizabeth MD Unavailable [phone] Bertram Elizabeth MD Unavailable [phone] Alex Johnson MD Unavailable Encounter Details Date Type Department Care Team (Late st Contact Info) Description 06/26/2020 MyC Medical Advice [facility] [address] [address] Jaime Grover MD [address] [place] [address] Social History Tobacco Use Types Packs/Day Years Used Date Smoking Tobacco: Former Cigarettes 2 3 0 04/23/1976 - 12/17/1977 Smokeless Tobacco: Never Alcohol Use Standard Drinks/Week Comments No 0 (1 standard drink = 0.6 oz pur e alcohol) PHQ-2 Answer Date Recorded PHQ-2 Score 4 01/31/2020 Comments No Sex and Gender Information Value Date Recorded Sex Assigned at Female 08/28/2018 12:23 AM MEDICAL TECHNICAL WRITER Legal Sex Female 4:46 AM MEDICAL TECHNICAL WRITER Gender Identity Female 08/28/2018 12:23 AM MEDICAL TECHNICAL WRITER Sexual Orientation Straight 10/11/2019 2: 51 PM MEDICAL TECHNICAL WRITER COVID-19 Exposure Response Date Recorded In the last month, have you been in contact with someone who was confirmed or suspected to have Coronavirus / COVID-19? No / Unsure 06/23/2020 10:33 AM MEDICAL TECHNICAL WRITER documented as of this encounter Plan of Treatment Upcoming Encounters Date Type Department Care Team (Late st Contact Info) Description 04/25/2025 1:30 PM CDT Office Visit [facility] [address] [phone] Alex Johnson MD [address] [place] [address] documented as of this encounter Visit Diagnoses Not on filedocumented in this encounter Additional Health Concerns Infection Onset Date Last Indicated Resolved Time COVID-19 06/23/2020 06/23/2020 07/14/2020 11:4 0 PM MEDICAL TECHNICAL WRITER Recovered COVID 07/08/2020 07/08/2020 09/21/2020 1 1:39 PM MEDICAL TECHNICAL WRITER Assessment Noted Time PHQ-9 Depression Total Score: 11 020 2:18 PM CDT documented as of this encounter Care Teams Refinery Operator Helper Cracking Unit Relationship Specialty Start Date End Date Bonny Cooley MD [address] [place] [address] PCP - General Family Practice 09/30/15 06/02/21 Aminata oYussef MD [facility] & [address] [address] PCP - General Internal Medicine 06/03/21 Bettye Gonzales MD MD Internal Medicine 04/10/15 Antony Chakraborty MD [address] [facility] [address] [phone] INTERNAL MEDICINE - ENDOCRINOLOGY, DIABETES & METABOLISM 11/13/15 Mateo Cheema MD [address] [place] [address] [phone] Internal Medicine 08/06/16 Ermias Colón MD [facility] [address] [address] Referring Physician Neurology 09/23/16 Bonny Cooley MD [address] [address] Assigned PCP 10/05/15 07/26/20 Pam Hernandez MD [address] [place] [address] [place] [address] Assigned Behavioral Health Provider 05/30/20 08/01/[address] [facility] [address] [place] [address] Assigned Rheumatology Provider 05/30/20 07/19/20 Jaime Grover MD [address] [place] [address] Assigned Gastroenterology Provider 05/30/20 11/14/21 [place] [address] [place] [address] [id number] Assigned Pediatric Specialist Provider 05/30/20 09/07/20 Toni Sheth MD [address] [place] [address] Assigned Surgical Provider 05/30/20 04/18/21 Bertram Elizabeth MD [address] [address] Assigned PCP 07/27/20 04/25/21 Bonny Cooley MD [address] [address] Assigned PCP 04/26/21 08/15/21 Bertram Elizabeth MD [address] [address] Assigned PCP 08/16/21 10/24/21 Alex Johnson MD [address] [place] [address] Assigned Rheumatology Provider 10/18/21 04/15/23 Bonny Cooley MD [address] [address] Assigned PCP 10/25/21 04/02/22 Bertram Elizabeth MD [address] [address] Assigned PCP 04/03/22 07/23/22 Bertram Elizabeth MD [address] [address] Assigned PCP 10/02/22 04/29/23 Alex Johnson MD [address] [place] [address] Rheumatology 10/04/24 documented as of this encounter
--- OUTSIDE RECORDS SUMMARY | 2024-10-28 13:59 | XMS_ITS | Encounter Summary ---
Author Organization [facility] Address [address] [place] [address] Care Team Providers Care Teller Head Name Role Phone Bettye Gonzales MD Unavailable + Bonny Cooley MD Primary Care Provider Antony Chakraborty MD Unavailable Mateo Cheema MD Unavailable [phone] Ermias Colón MD Unavailable Bonny Cooley MD Unavailable [phone] Pam Hernandez MD Unavailable [phone] Lázaro Horowitz MD Unavailable Jaime Grover MD Unavailable Toni Sheth MD Unavailable Toni Sheth MD Unavailable Bertram Elizabeth MD Unavailable Bonny Cooley MD Unavailable [phone] Aminata Youssef MD Primary Care Provider Bertram Elizabeth MD Unavailable Alex Johnson MD Unavailable [phone] Bonny Cooley MD Unavailable [phone] Bertram Elizabeth MD Unavailable [phone] Bertram Elizabeth MD Unavailable [phone] Alex Johnson MD Unavailable Encounter Details Date Type Department Care Team (Late st Contact Info) Description 06/27/2020 [facility] Medical Advice Adult Call Center [address] [place] [phone] Keyona Carter Social History Tobacco Use [...] Assigned at Female 08/28/2018 12:23 AM PRODUCT MANAGER MEDICAL DEVICE Legal Sex Female 4:46 AM PRODUCT MANAGER MEDICAL DEVICE Gender Identity Female 08/28/2018 12:23 AM PRODUCT MANAGER MEDICAL DEVICE Sexual Orientation Straight 10/11/2019 2: 51 PM PRODUCT MANAGER MEDICAL DEVICE COVID-19 Exposure Response Date Recorded In the last month, have you been in contact with someone who was confirmed or suspected to have Coronavirus / COVID-19? No / Unsure 06/23/2020 10:33 AM PRODUCT MANAGER MEDICAL DEVICE documented as of this encounter Plan of Treatment Upcoming Encounters Date Type Department Care Team (Late st Contact Info) Description 04/25/2025 1:30 PM CDT Office Visit [facility] Specialty [address] [place] [address] Alex Johnson MD [address] [place] [address] documented as of this encounter Visit Diagnoses Not on filedocumented in this encounter Additional Health Concerns Infection Onset Date Last Indicated Resolved Time COVID-19 06/23/2020 06/23/2020 07/14/2020 11:4 0 PM PRODUCT MANAGER MEDICAL DEVICE Recovered COVID 07/08/2020 07/08/2020 09/21/2020 1 1:39 PM PRODUCT MANAGER MEDICAL DEVICE Assessment Noted Time PHQ-9 Depression Total Score: 11 020 2:18 PM CDT documented as of this encounter Care Teams Teller Head Relationship Specialty Start Date End Date Bonny Cooley MD [address] [place] [address] PCP - General Family Practice 09/30/15 06/02/21 Aminata Youssef MD [facility] [address] [place] [address] PCP - General Internal Medicine 06/03/21 Bettye Gonzales MD MD Internal Medicine 04/10/15 Antony Chakraborty MD [address] [address] INTERNAL MEDICINE - ENDOCRINOLOGY, DIABETES & METABOLISM 11/13/15 Mateo Cheema MD [address] [address] Internal Medicine 08/06/16 Ermias Colón MD [address] [address] Referring Physician Neurology 09/23/16 [place] [address] [place] [address] Assigned PCP 10/05/15 07/26/20 Pam Hernandez MD [address] [place] [address] [place] [address] Assigned Behavioral Health Provider 05/30/20 08/01/21 Lázaro Horowitz MD [facility] [address] [place] [address] Assigned Rheumatology Provider 05/30/20 07/19/20 Jaime Grover MD [address] [place] [address] Assigned Gastroenterology Provider 05/30/20 11/14/21 Toni Sheth MD [address] [place] [address] Assigned Pediatric Specialist Provider 05/30/20 09/07/20 Toni Sheth MD [address] [place] [address] Assigned Surgical Provider 05/30/20 04/18/21 Bertram Elizabeth MD [address] [place] [address] Assigned PCP 07/27/20 04/25/21 Bonny Cooley MD [address] [place] [address] Assigned PCP 04/26/21 08/15/21 Bertram Elizabeth MD [address] [place] [address] Assigned PCP 08/16/21 10/24/21 Alex Johnson MD [address] [place] [address] Assigned Rheumatology Provider 10/18/21 04/15/23 Bonny Cooley MD [address] [address] Assigned PCP 10/25/21 04/02/22 Bertram Elizabeth MD [address] [address] Assigned PCP 04/03/22 07/23/22 Bertram Elizabeth MD [address] [address] Assigned PCP 10/02/22 04/29/23 Alex Johnson MD [address] [place] [address] Rheumatology 10/04/24 documented as of this encounter
--- OUTSIDE RECORDS SUMMARY | 2024-10-28 13:59 | XMS_ITS | Encounter Summary ---
Author Organization [facility] Address [address] [place] [address] Care Team Providers Care Tiler Name Role Phone Bettye Gonzales MD Unavailable + Bonny Cooley MD Primary Care Provider [phone] Antony Chakraborty MD Unavailable Mateo Cheema MD Unavailable [phone] Ermias Colón MD Unavailable Bonny Cooley MD Unavailable [phone] Pam Hernandez MD Unavailable [phone] Lázaro Horowitz MD Unavailable Jaime Grover MD Unavailable [phone] Toni Sheth MD Unavailable Toni Sheth MD Unavailable Bertram Elizabeth MD Unavailable Bonny Cooley MD Unavailable [phone] Aminata Youssef MD Primary Care Provider Bertram Elizabeth MD Unavailable Alex Johnson MD Unavailable Bonny Cooley MD Unavailable [phone] Bertram Elizabeth MD Unavailable [phone] Bertram Elizabeth MD Unavailable [phone] Alex Johnson MD Unavailable [phone] Encounter Details Date Type Department Care Team (Late st Contact Info) Description 06/08/2020 MyC Medical Advice [facility]ology Clinic [address] [address] Jaime Grover MD [address] [place] [address] Social History Tobacco Use Types Packs/Day Years Used Date Smoking Tobacco: Former Cigarettes 2 3 0 04/23/1976 - 12/17/1977 Smokeless Tobacco: Never Alcohol Use Standard Drinks/Week Comments No 0 (1 standard drink = 0.6 oz pur e alcohol) PHQ-2 Answer Date Recorded PHQ-2 Score 4 01/31/2020 Comments No Sex and Gender Information Value Date Recorded Sex Assigned at Female 08/28/2018 12:23 AM FOUNTAIN JERK Legal Sex Female 4:46 AM FOUNTAIN JERK Gender Identity Female 08/28/2018 12:23 AM FOUNTAIN JERK Sexual Orientation Straight 10/11/2019 2: 51 PM FOUNTAIN JERK COVID-19 Exposure Response Date Recorded In the [...] [facility] [address] [phone] Alex Johnson MD [address] [place] [address] documented as of this encounter Visit Diagnoses Not on filedocumented in this encounter Additional Health Concerns Infection Onset Date Last Indicated Resolved Time COVID-19 06/23/2020 06/23/2020 07/14/2020 11:4 0 PM FOUNTAIN JERK Recovered COVID 07/08/2020 07/08/2020 09/21/2020 1 1:39 PM FOUNTAIN JERK Assessment Noted Time PHQ-9 Depression Total Score: 11 020 2:18 PM CDT documented as of this encounter Care Teams Tiler Relationship Specialty Start Date End Date Bonny Cooley MD [address] [place] [address] PCP - General Family Practice 09/30/15 06/02/21 Aminata Youssef MD [facility] & [address] [address] PCP - General Internal Medicine 06/03/21 Bettye Gonzales MD MD Internal Medicine 04/10/15 Antony Chakraborty MD [address] [phone] INTERNAL MEDICINE - ENDOCRINOLOGY, DIABETES & METABOLISM 11/13/15 Mateo Cheema MD [facility] [address] [address] Internal Medicine 08/06/16 Ermias Colón MD [address] [facility] [address] [address]65 Referring Physician Neurology 09/23/16 Bonny Cooley MD [address] [address] Assigned PCP 10/05/15 07/26/20 Pam Hernandez MD [address] [place] [address] [place] [address] Assigned Behavioral Health Provider 05/30/20 08/01/21 Lázaro Horowitz MD [facility] [address] [place] [address] Assigned Rheumatology Provider 05/30/20 07/19/20 Jaime Grover MD [address] [place] [address] Assigned Gastroenterology Provider 05/30/20 11/14/21 [place] [address] [place] [address] [id number] Assigned Pediatric Specialist Provider 05/30/20 09/07/20 Toni Sheth MD [address] [place] [address] Assigned Surgical Provider 05/30/20 04/18/21 Bertram Elizabeth MD [address] [address] Assigned PCP 07/27/20 04/25/21 Bonny Cooley MD [address] [address] Assigned PCP 04/26/21 08/15/21 Bertram Elizabeth MD [address] [address] Assigned PCP 08/16/21 10/24/21 Alex Johnson MD [address] [place] [address] Assigned Rheumatology Provider 10/18/21 04/15/23 Bonny Cooley MD [address] [address] Assigned PCP 10/25/21 04/02/22 Bertram Elizabeth MD [address] [address] Assigned PCP 04/03/22 07/23/22 Bertram Elizabeth MD [address] [address] Assigned PCP 10/02/22 04/29/23 Alex Johnson MD [address] [place] [address] Rheumatology 10/04/24 documented as of this encounter
--- OUTSIDE RECORDS SUMMARY | 2024-10-28 13:59 | XMS_ITS | Encounter Summary ---
Author Organization [facility] Address [address] [place] [address] Care Team Providers Care Asset Analyst Name Role Phone Bettye Gonzales MD Unavailable + Bonny Cooley MD Primary Care Provider Antony Chakraborty MD Unavailable Mateo Cheema MD Unavailable Ermias Colón MD Unavailable Bonny Cooley MD Unavailable [phone] Pam Hernandez MD Unavailable [phone] Lázaro Horowitz MD Unavailable Jaime Grover MD Unavailable [phone] Toni Sheth MD Unavailable Toni Sheth MD Unavailable Bertram Elizabeth MD Unavailable Bonny Cooley MD Unavailable Aminata Youssef MD Primary Care Provider [phone] Bertram Elizabeth MD Unavailable Alex Johnson MD Unavailable Bonny Cooley MD Unavailable [phone] Bertram Elizabeth MD Unavailable [phone] Bertram Elizabeth MD Unavailable [phone] Alex Johnson MD Unavailable [phone] Encounter Details Date Type Department Care Team (Late st Contact Info) Description 06/25/2020 MyC Medical Advice [facility] Gastroenterology Clinic [address] [address] Jaime Grover MD [address] [place] [address] Social History Tobacco Use Types Packs/Day Years Used Date Smoking Tobacco: Former Cigarettes 2 3 0 04/23/1976 - 12/17/1977 Smokeless Tobacco: Never Alcohol Use Standard Drinks/Week Comments No 0 (1 standard drink = 0.6 oz pur e alcohol) PHQ-2 Answer Date Recorded PHQ-2 Score 4 01/31/2020 Comments No Sex and Gender Information Value Date Recorded Sex Assigned at Female 08/28/2018 12:23 AM MULTI SHARE PROGRAM COORDINATOR Legal Sex Female 4:46 AM MULTI SHARE PROGRAM COORDINATOR Gender Identity Female 08/28/2018 12:23 AM MULTI SHARE PROGRAM COORDINATOR Sexual Orientation Straight 10/11/2019 2: 51 PM MULTI SHARE PROGRAM COORDINATOR COVID-19 Exposure Response Date Recorded In the last month, have you been in contact with someone who was confirmed or suspected to have Coronavirus / COVID-19? No / Unsure 06/23/2020 10:33 AM MULTI SHARE PROGRAM COORDINATOR documented as of this encounter Plan of Treatment Upcoming Encounters Date Type Department Care Team (Late st Contact Info) Description 04/25/2025 1:30 PM CDT Office Visit [facility] Specialty Clinic [address] [phone] Alex Johnson MD [address] [place] [address] documented as of this encounter Visit Diagnoses Not on filedocumented in this encounter Additional Health Concerns Infection Onset Date Last Indicated Resolved Time COVID-19 06/23/2020 06/23/2020 07/14/2020 11:4 0 PM MULTI SHARE PROGRAM COORDINATOR Recovered COVID 07/08/2020 07/08/2020 09/21/2020 1 1:39 PM MULTI SHARE PROGRAM COORDINATOR Assessment Noted Time PHQ-9 Depression Total Score: 11 020 2:18 PM CDT documented as of this encounter Care Teams Asset Analyst Relationship Specialty Start Date End Date Bonny Cooley MD [address] [place] [address] PCP - General Family Practice 09/30/15 06/02/21 Aminata Youssef MD [facility] & [address] [address] PCP - General Internal Medicine 06/03/21 Bettye Gonzales MD MD Internal Medicine 04/10/15 Antony Chakraborty MD [facility] [address] [phone] INTERNAL MEDICINE - ENDOCRINOLOGY, DIABETES & METABOLISM 11/13/15 Mateo Cheema MD [address] [facility] [address] [phone] Internal Medicine 08/06/16 Ermias Colón MD 420 [facility] [address] [address] Referring Physician Neurology 09/23/16 Bonny Cooley MD [address] [address] Assigned PCP 10/05/15 07/26/20 Pam Hernandez MD [address] [place] [address] [place] [address] Assigned Behavioral Health Provider 05/30/20 08/01/21 Lázaro Horowitz MD [facility] [address] [place] [address] Assigned Rheumatology Provider 05/30/20 07/19/20 Jaime Grover MD [address] [place] [address] Assigned Gastroenterology Provider 05/30/20 11/14/21 [place] [address] [place] [address] [id number] Assigned Pediatric Specialist Provider 05/30/20 09/07/20 Toni Sheth MD [address] [place] [address] Assigned Surgical Provider 05/30/20 04/18/21 Bertrma Elizabeth MD [address] [address] Assigned PCP 07/27/20 04/25/21 Bonny Cooley MD [address] [address] Assigned PCP 04/26/21 08/15/21 Bertram Elizabeth MD [address] [address] Assigned PCP 08/16/21 10/24/21 Alex Johnson MD [address] [place] [address] Assigned Rheumatology Provider 10/18/21 04/15/23 Bonny Cooley MD [address] [address] Assigned PCP 10/25/21 04/02/22 Bertram Elizabeth MD [address] [address] Assigned PCP 04/03/22 07/23/22 Bertram Elizabeth MD [address] [address] Assigned PCP 10/02/22 04/29/23 Alex Johnson MD [address] [place] [address] Rheumatology 10/04/24 documented as of this encounter
--- OUTSIDE RECORDS SUMMARY | 2024-10-28 13:59 | XMS_ITS | Encounter Summary ---
Author Organization [facility] Address [address] [place] [address] Care Team Providers Care Hat Braider Name Role Phone Bettye Gonzales MD Unavailable + Bonny Cooley MD Primary Care Provider Antony Chakraborty MD Unavailable [phone] Mateo Cheema MD Unavailable [phone] Ermias Colón MD Unavailable Pam Hernandez MD Unavailable [phone] Jaime Grover MD Unavailable Toni Sheth MD Unavailable Bertram Elizabeth MD Unavailable [phone] Bonny Cooley MD Unavailable [phone] Aminata Youssef MD Primary Care Provider [phone] Bertram Elizabeth MD Unavailable Alex Johnson MD Unavailable Bonny Cooley MD Unavailable [phone] Bertram Elizabeth MD Unavailable [phone] Bertram Elizabeth MD Unavailable [phone] Alex Johnson MD Unavailable Encounter Details Date Type Department Care Team (Late st Contact Info) Description 09/23/2020 MyC Medical Advice [facility] Rheumatology Clinic [phone] [place] [phone] Toni Del Angel MD [facility] [address] [facility] [address] [place] [address] Social History Tobacco Use Types [...] Sex Assigned at Female 08/28/2018 12:23 AM VENEER TAPING MACHINE OPERATOR Legal Sex Female 4:46 AM VENEER TAPING MACHINE OPERATOR Gender Identity Female 08/28/2018 12:23 AM VENEER TAPING MACHINE OPERATOR Sexual Orientation Straight 10/11/2019 2: 51 PM VENEER TAPING MACHINE OPERATOR documented as of this encounter Plan of Treatment Upcoming Encounters Date Type Department Care Team (Late st Contact Info) Description 04/25/2025 1:30 PM CDT Office Visit [facility] Specialty Clinic [address] [phone] Alex Johnosn MD [address] [place] [address] [address] [place], [place] 5060[address] documented as of this encounter Visit Diagnoses Not on filedocumented in this encounter Additional Health Concerns Assessment Noted Time PHQ-9 Depression Total Score: 11 020 2:18 PM CDT documented as of this encounter Care Teams Hat Braider Relationship Specialty Start Date End Date Bonny Cooley MD [address] [place] [address] PCP - General Family Practice 09/30/15 06/02/21 Aminata Youssef MD [facility] - [address] [address] PCP - General Internal Medicine 06/03/21 Bettye Gonzales MD Internal Medicine 04/10/15 Antony Chakraborty MD [address] [place] [address] INTERNAL MEDICINE - ENDOCRINOLOGY, DIABETES & METABOLISM 11/13/15 Mateo Cheema MD [address] [address] Internal Medicine 08/06/16 Ermias Colón MD [address] [address] Referring Physician Neurology 09/23/16 Pam Hernandez MD [address] [place] [address] [place] [address] Assigned Behavioral Health Provider 05/30/20 08/01/21 Jaime Grover MD [address] [place] [address] Assigned Gastroenterology Provider 05/30/20 11/14/21 Toin Sheth MD [address] [place] [address] Assigned Surgical Provider 05/30/20 04/18/21 Bertram Elizabeth MD [address] [place] [address] Assigned PCP 07/27/20 04/25/21 Bonny Cooley MD [address] [place] [address] Assigned PCP 04/26/21 08/15/21 Bertram Elizabeth MD [address] [place] [address] Assigned PCP 08/16/21 10/24/21 Alex Johnson MD [address] [place] [address] Assigned Rheumatology Provider 10/18/21 04/15/23 Bonny Cooley MD [address] [place] [address] Assigned PCP 10/25/21 04/02/22 Bertram Elizabeth MD [address] [place] [address] Assigned PCP 04/03/22 07/23/22 Bertram Elizabeth MD [address] [place] [address] Assigned PCP 10/02/22 04/29/23 Alex Johnson MD [address] [place] [address] Rheumatology 10/04/24 documented as of this encounter
--- OUTSIDE RECORDS SUMMARY | 2024-10-28 13:59 | XMS_ITS | Encounter Summary ---
Author Organization [facility] Address [address] [place] [address] Care Team Providers Care Spanish Language Lecturer Name Role Phone Bettye Gonzales MD Unavailable + Bonny Cooley MD Primary Care Provider Antony Chakraborty MD Unavailable Mateo Cheema MD Unavailable Ermias Colón MD Unavailable Bonny Cooley MD Unavailable [phone] Pam Hernandez MD Unavailable [phone] Lázaro Horowitz MD Unavailable Jaime Grover MD Unavailable [phone] Toni Sheth MD Unavailable Toni Sheth MD Unavailable Bertram Elizabeth MD Unavailable [phone] Bonny Cooley MD Unavailable [phone] Aminata Youssef MD Primary Care Provider Bertram Elizabeth MD Unavailable Alex Johnson MD Unavailable Bonny Cooley MD Unavailable [phone] Bertram Elizabeth MD Unavailable Bertram Elizabeth MD Unavailable [phone] Alex Johnson MD Unavailable Encounter Details Date Type Department Care Team (Late st Contact Info) Description 06/26/2020 MyC Medical Advice [facility] [place] [address] [facility] 3rd [place] [address] Mateo Cheema MD 420 [facility] [address] [place] [address] Social History Tobacco Use Types [...] Sex Assigned at Female 08/28/2018 12:23 AM TEXTILE BAG SEWER Legal Sex Female 4:46 AM TEXTILE BAG SEWER Gender Identity Female 08/28/2018 12:23 AM TEXTILE BAG SEWER Sexual Orientation Straight 10/11/2019 2: 51 PM TEXTILE BAG SEWER COVID-19 Exposure Response Date Recorded In the last month, have you been in contact with someone who was confirmed or suspected to have Coronavirus / COVID-19? No / Unsure 06/23/2020 10:33 AM TEXTILE BAG SEWER documented as of this encounter Plan of Treatment Upcoming Encounters Date Type Department Care Team (Late st Contact Info) Description 04/25/2025 1:30 PM CDT Office Visit [facility] [address] [address] Alex Johnson MD [address] [place] [address] [address] [place] [address] documented as of this encounter Visit Diagnoses Not on filedocumented in this encounter Additional Health Concerns Infection Onset Date Last Indicated Resolved Time COVID-19 06/23/2020 06/23/2020 07/14/2020 11:4 0 PM TEXTILE BAG SEWER Recovered COVID 07/08/2020 07/08/2020 09/21/2020 1 1:39 PM TEXTILE BAG SEWER Assessment Noted Time PHQ-9 Depression Total Score: 11 020 2:18 PM CDT documented as of this encounter Care Teams Spanish Language Lecturer Relationship Specialty Start Date End Date Bonny Cooley MD [address] [place] [address] PCP - General Family Practice 09/30/15 06/02/21 Aminata Youssef MD [facility] & [address] [address] PCP - General Internal Medicine 06/03/21 Bettye Gonzales MD Internal Medicine 04/10/15 Antony Chakraborty MD [address] [address] INTERNAL MEDICINE - ENDOCRINOLOGY, DIABETES & METABOLISM 11/13/15 Mateo Cheema MD [address] 001545 Internal Medicine 08/06/16 Ermias Colón MD [address] [address] Referring Physician Neurology 09/23/16 Bonny Cooley MD [address] [address] Assigned PCP 10/05/15 07/26/20 Pam Hernandez MD [address] [place] [address] [place] [address] Assigned Behavioral Health Provider 05/30/20 08/01/21 Lázaro Horowitz MD [address] [address] Assigned Rheumatology Provider 05/30/20 07/19/20 Jaime Grover MD [address] [place] [address] Assigned Gastroenterology Provider 05/30/20 11/14/21 Toni Sheth MD [address] [place] [address] [phone] Assigned Pediatric Specialist Provider 05/30/20 09/07/20 Toni Sheth MD [address] [place] [address] [phone] Assigned Surgical Provider 05/30/20 04/18/21 Bertram Elizabeth MD [address] [address] Assigned PCP 07/27/20 04/25/21 Bonny Cooley MD [address] [address] Assigned PCP 04/26/21 08/15/21 Bertram Elizabeth MD [address] [address] Assigned PCP 08/16/21 10/24/21 Alex Johnson MD [address] [place] [address] Assigned Rheumatology Provider 10/18/21 04/15/23 Bonny Cooley MD [address] [place] [address] Assigned PCP 10/25/21 04/02/22 Bertram Elizabeth MD [address] [place] [address] Assigned PCP 04/03/22 07/23/22 Bertram Elizabeth MD [address] [place] [address] Assigned PCP 10/02/22 04/29/23 Alex Johnson MD [address] [place] [address] Rheumatology 10/04/24 documented as of this encounter
--- OUTSIDE RECORDS SUMMARY | 2024-10-28 13:59 | XMS_ITS | Encounter Summary ---
Author Organization [place] Address [address] [place] [address] Care Team Providers Care Shoe Ironer Name Role Phone Bettye Gonzales MD Unavailable + Bonny Cooley MD Primary Care Provider [phone] Antony Chakraborty MD Unavailable Mateo Cheema MD Unavailable [phone] Ermias Colón MD Unavailable Bonny Cooley MD Unavailable [phone] Pam Hernandez MD Unavailable [phone] Lázaro Horowitz MD Unavailable Jaime Grover MD Unavailable Toni Sheth MD Unavailable Toni Sheth MD Unavailable Bertram Elizabeth MD Unavailable Bonny Cooley MD Unavailable [phone] Aminata Youssef MD Primary Care Provider Bertram Elizabeth MD Unavailable [phone] Alex Johnson MD Unavailable Bonny Cooley MD Unavailable [phone] Bertram Elizabeth MD Unavailable [phone] Bertram Elizabeth MD Unavailable [phone] Alex Johnson MD Unavailable Encounter Details Date Type Department Care Team (Late st Contact Info) Description 07/04/2020 MyC Medical Advice [facility] [address] [address] Jaime Grover MD [address] [place] [address] Social History Tobacco Use Types Packs/Day Years Used Date Smoking Tobacco: Former Cigarettes 2 3 0 04/23/1976 - 12/17/1977 Smokeless Tobacco: Never Alcohol Use Standard Drinks/Week Comments No 0 (1 standard drink = 0.6 oz pur e alcohol) PHQ-2 Answer Date Recorded PHQ-2 Score 4 01/31/2020 Comments No Sex and Gender Information Value Date Recorded Sex Assigned at Female 08/28/2018 12:23 AM FAMILY SERVICE CASEWORKER Legal Sex Female 4:46 AM FAMILY SERVICE CASEWORKER Gender Identity Female 08/28/2018 12:23 AM FAMILY SERVICE CASEWORKER Sexual Orientation Straight 10/11/2019 2: 51 PM FAMILY SERVICE CASEWORKER COVID-19 Exposure Response Date Recorded In the last month, have you been in contact with someone who was confirmed or suspected to have Coronavirus / COVID-19? No / Unsure 06/23/2020 10:33 AM FAMILY SERVICE CASEWORKER documented as of this encounter Plan of Treatment Upcoming Encounters Date Type Department Care Team (Late st Contact Info) Description 04/25/2025 1:30 PM CDT Office Visit [facility] [address] [phone] Alex Johnson MD [address] [place] [address] documented as of this encounter Visit Diagnoses Not on filedocumented in this encounter Additional Health Concerns Infection Onset Date Last Indicated Resolved Time COVID-19 06/23/2020 06/23/2020 07/14/2020 11:4 0 PM FAMILY SERVICE CASEWORKER Recovered COVID 07/08/2020 07/08/2020 09/21/2020 1 1:39 PM FAMILY SERVICE CASEWORKER Assessment Noted Time PHQ-9 Depression Total Score: 11 020 2:18 PM CDT documented as of this encounter Care Teams Shoe Ironer Relationship Specialty Start Date End Date Bonny Cooley MD [address] [place] [address] PCP - General Family Practice 09/30/15 06/02/21 Aminata Youssef MD [facility] & [address] [address] PCP - General Internal Medicine 06/03/21 Bettye Gonzales MD MD Internal Medicine 04/10/15 Antony Chakraborty MD 420 [facility] [address] 333325 INTERNAL MEDICINE - ENDOCRINOLOGY, DIABETES & METABOLISM 11/13/15 Mateo Cheema MD [address] [place] [address] [id number] Internal Medicine 08/06/16 Ermias Colón MD 420 [facility] [address] 361275 Referring Physician Neurology 09/23/16 Bonny Cooley MD [address] [address] Assigned PCP 10/05/15 07/26/20 Pam Hernandez MD [address] [place] [address] [place] [address] Assigned Behavioral Health Provider 05/30/20 08/01/21 Lázaro Horowitz MD [facility] [address] [place] [address] Assigned Rheumatology Provider 05/30/20 07/19/20 Jaime Grover MD [address] [place] [address] Assigned Gastroenterology Provider 05/30/20 11/14/21 [place] [address] [place] [address] [phone] Assigned Pediatric Specialist Provider 05/30/20 09/07/20 Toni Sheth MD [address] [place] [address] Assigned Surgical Provider 05/30/20 04/18/21 Bertram Elizabeth MD [address] [address] Assigned PCP 07/27/20 04/25/21 Bonny Cooley MD [address] [address] Assigned PCP 04/26/21 08/15/21 Bertram Elizabeth MD [address] [address] Assigned PCP 08/16/21 10/24/21 Alex Johnson MD [address] [place] [address] Assigned Rheumatology Provider 10/18/21 04/15/23 Bonny Cooley MD [address] [address] Assigned PCP 10/25/21 04/02/22 Bertram Elizabeth MD [address] [address] Assigned PCP 04/03/22 07/23/22 Bertram Elizabeth MD [address] [address] Assigned PCP 10/02/22 04/29/23 Alex Johnson MD [address] [place] [address] Rheumatology 10/04/24 documented as of this encounter
--- OUTSIDE RECORDS SUMMARY | 2024-10-28 13:59 | XMS_ITS | Encounter Summary ---
Author Organization [facility] Address [address] [place] [address] Care Team Providers Care Senior Underwriter Name Role Phone Bettye Gonzales MD Unavailable + Bonny Cooley MD Primary Care Provider Antony Chakraborty MD Unavailable Mateo Cheema MD Unavailable Ermias Colón MD Unavailable Bonny Cooley MD Unavailable [phone] Pam Hernandez MD Unavailable [phone] Lázaro Horowitz MD Unavailable Jaime Grover MD Unavailable [phone] Toni Sheth MD Unavailable Toni Sheth MD Unavailable Bertram Elizabeth MD Unavailable Bonny Cooley MD Unavailable [phone] Aminata Youssef MD Primary Care Provider Bertram Elizabeth MD Unavailable Alex Johnson MD Unavailable Bonny Cooley MD Unavailable [phone] Bertram Elizabeth MD Unavailable [phone] Bertram Elizabeth MD Unavailable [phone] Alex Johnson MD Unavailable Encounter Details Date Type Department Care Team (Late st Contact Info) Description 06/23/2020 MyC Medical Advice [facility] [address] [address] Jaime Grover MD [address] [place] [address] Social History Tobacco Use Types Packs/Day Years Used Date Smoking Tobacco: Former Cigarettes 2 3 0 04/23/1976 - 12/17/1977 Smokeless Tobacco: Never Alcohol Use Standard Drinks/Week Comments No 0 (1 standard drink = 0.6 oz pur e alcohol) PHQ-2 Answer Date Recorded PHQ-2 Score 4 01/31/2020 Comments No Sex and Gender Information Value Date Recorded Sex Assigned at Female 08/28/2018 12:23 AM CASINO CHANGE ATTENDANT Legal Sex Female 4:46 AM CASINO CHANGE ATTENDANT Gender Identity Female 08/28/2018 12:23 AM CASINO CHANGE ATTENDANT Sexual Orientation Straight 10/11/2019 2: 51 PM CASINO CHANGE ATTENDANT COVID-19 Exposure Response Date Recorded In the last month, have you been in contact with someone who was confirmed or suspected to have Coronavirus / COVID-19? No / Unsure 06/23/2020 10:33 AM CASINO CHANGE ATTENDANT documented as of this encounter Plan of Treatment Upcoming Encounters Date Type Department Care Team (Late st Contact Info) Description 04/25/2025 1:30 PM CDT Office Visit [facility] [address] [phone] Alex Johnson MD [address] [place] [address] documented as of this encounter Visit Diagnoses Not on filedocumented in this encounter Additional Health Concerns Infection Onset Date Last Indicated Resolved Time COVID-19 06/23/2020 06/23/2020 07/14/2020 11:4 0 PM CASINO CHANGE ATTENDANT Recovered COVID 07/08/2020 07/08/2020 09/21/2020 1 1:39 PM CASINO CHANGE ATTENDANT Assessment Noted Time PHQ-9 Depression Total Score: 11 020 2:18 PM CDT documented as of this encounter Care Teams Senior Underwriter Relationship Specialty Start Date End Date Bonny Cooley MD [address] [place] [address] PCP - General Family Practice 09/30/15 06/02/21 Aminata Youssef MD [facility] & [address] [address] PCP - General Internal Medicine 06/03/21 Bettye Gonzales MD MD Internal Medicine 04/10/15 Antony Chakraborty MD 420 [facility] [address] 172845 INTERNAL MEDICINE - ENDOCRINOLOGY, DIABETES & METABOLISM 11/13/15 Mateo Cheema MD [address] [place] [address] [id number] Internal Medicine 08/06/16 Ermias Colón MD 420 [facility] [address] 254595 Referring Physician Neurology 09/23/16 Bonny Cooley MD [address] [address] Assigned PCP 10/05/15 07/26/20 Pam Hernandez MD [address] [place] [address] [place] [address] Assigned Behavioral Health Provider 05/30/20 08/01/21 Lázaro Horowitz MD [facility] [address] [place] [address] Assigned Rheumatology Provider 05/30/20 07/19/20 Jaime Grover MD [address] [place] [address] Assigned Gastroenterology Provider 05/30/20 11/14/21 [place] [address] [place] [address] [phone] Assigned Pediatric Specialist Provider 05/30/20 09/07/20 Toni Sheth MD [address] [place] [address] Assigned Surgical Provider 05/30/20 04/18/21 Bertram Elizabeth MD [address] [address] Assigned PCP 07/27/20 04/25/21 Bonny Cooley MD [address] [address] Assigned PCP 04/26/21 08/15/21 Bertram Elizabeth MD [address] [address] Assigned PCP 08/16/21 10/24/21 Alex Johnson MD [address] [place] [address] Assigned Rheumatology Provider 10/18/21 04/15/23 Bonny Cooley MD [address] [address] Assigned PCP 10/25/21 04/02/22 Bertram Elizabeth MD [address] [address] Assigned PCP 04/03/22 07/23/22 Bertram Elizabeth MD [address] [address] Assigned PCP 10/02/22 04/29/23 Alex Johnson MD [address] [place] [address] Rheumatology 10/04/24 documented as of this encounter
--- OUTSIDE RECORDS SUMMARY | 2024-10-28 13:59 | XMS_ITS | Encounter Summary ---
Author Organization [place] Address [address] [place] [address] Care Team Providers Care Mine Geologist Name Role Phone Bettye Gonzales MD Unavailable + Bonny Cooley MD Primary Care Provider Antony Chakraborty MD Unavailable Mateo Cheema MD Unavailable Ermias Colón MD Unavailable Bonny Cooley MD Unavailable [phone] Pam Hernandez MD Unavailable [phone] Lázaro Horowitz MD Unavailable Jaime Grover MD Unavailable [phone] Toni Sheth MD Unavailable Toni Sheth MD Unavailable Bertram Elizabeth MD Unavailable Bonny Cooley MD Unavailable [phone] Aminata Youssef MD Primary Care Provider Bertram Elizabeth MD Unavailable Alex Johnson MD Unavailable Bonny Cooley MD Unavailable [phone] Bertram Elizabeth MD Unavailable [phone] Bertram Elizabeth MD Unavailable [phone] Alex Johnson MD Unavailable Encounter Details Date Type Department Care Team (Late st Contact Info) Description 07/07/2020 MyC Medical Advice [facility] [address] [address] Dulce Connell RN Social History Tobacco Use Types Packs/Day Years Used Date Smoking Tobacco: Former Cigarettes 2 3 0 04/23/1976 - 12/17/1977 Smokeless Tobacco: Never Alcohol Use Standard Drinks/Week Comments No 0 (1 standard drink = 0.6 oz pur e alcohol) PHQ-2 Answer Date Recorded PHQ-2 Score 4 01/31/2020 Comments No Sex and Gender Information Value Date Recorded Sex Assigned at Female 08/28/2018 12:23 AM PROGRAM ELIGIBILITY SPECIALIST Legal Sex Female 4:46 AM PROGRAM ELIGIBILITY SPECIALIST Gender Identity Female 08/28/2018 12:23 AM PROGRAM ELIGIBILITY SPECIALIST Sexual Orientation Straight 10/11/2019 2: 51 PM PROGRAM ELIGIBILITY SPECIALIST COVID-19 Exposure Response Date Recorded In the last month, have you been in contact with someone who was confirmed or suspected to have Coronavirus / COVID-19? No / Unsure 07/08/2020 8:58 AM PROGRAM ELIGIBILITY SPECIALIST documented as of this encounter Plan of Treatment Upcoming Encounters Date Type Department Care Team (Late st Contact Info) Description 04/25/2025 1:30 PM CDT Office Visit [facility] [address] [place] [address] Alex Johnson MD [address] [place] [address] documented as of this encounter Visit Diagnoses Not on filedocumented in this encounter Additional Health Concerns Infection Onset Date Last Indicated Resolved Time COVID-19 06/23/2020 06/23/2020 07/14/2020 11:4 0 PM PROGRAM ELIGIBILITY SPECIALIST Recovered COVID 07/08/2020 07/08/2020 09/21/2020 1 1:39 PM PROGRAM ELIGIBILITY SPECIALIST Assessment Noted Time PHQ-9 Depression Total Score: 11 020 2:18 PM CDT documented as of this encounter Care Teams Mine Geologist Relationship Specialty Start Date End Date Bonny Cooley MD [address] [place] [address] PCP - General Family Practice 09/30/15 06/02/21 Aminata Youssef MD [facility] & [address] [address] PCP - General Internal Medicine 06/03/21 Bettye Gonzales MD Internal Medicine 04/10/15 Antony Chakraborty MD [address] 011565 MD INTERNAL MEDICINE - ENDOCRINOLOGY, DIABETES & METABOLISM 11/13/15 Mateo Cheema MD [address] [place] [address] 882425 Internal Medicine 08/06/16 Ermias Colón MD [address] 694325 Referring Physician Neurology 09/23/16 Bonny Cooley MD [address] [address] Assigned PCP 10/05/15 07/26/20 Pam Hernandez MD [address] [place] [address] [place] [address] Assigned Behavioral Health Provider 05/30/20 08/01/21 Lázaro Horowitz MD [facility] [address] [place], [place] 8988[address] Assigned Rheumatology Provider 05/30/20 07/19/20 Jaime Grover MD [address] [place] [address] Assigned Gastroenterology Provider 05/30/20 11/14/21 Toni Sheth MD [address] [place] [address] Assigned Pediatric Specialist Provider 05/30/20 09/07/20 Toni Sheth MD [address] [place] [address] [phone] Assigned Surgical Provider 05/30/20 04/18/21 Bertram Elizabeth MD [address] [address] Assigned PCP 07/27/20 04/25/21 Bonny Cooley MD [address] [address] Assigned PCP 04/26/21 08/15/21 Bertram Elizabeth MD [address] [address] Assigned PCP 08/16/21 10/24/21 Alex Johnson MD [address] [place] [address] Assigned Rheumatology Provider 10/18/21 04/15/23 Bonny Cooley MD [address] [address] Assigned PCP 10/25/21 04/02/22 Bertram Elizabeth MD [address] [address] Assigned PCP 04/03/22 07/23/22 Bertram Elizabeth MD [address] [address] Assigned PCP 10/02/22 04/29/23 Alex Johnson MD [address] [place] [address] Rheumatology 10/04/24 documented as of this encounter
--- OUTSIDE RECORDS SUMMARY | 2024-10-28 13:59 | XMS_ITS | Encounter Summary ---
Author Organization [place] Address [address] [place] [address] Care Team Providers Care Aquaculture Farmer Name Role Phone Bettye Gonzales MD Unavailable + Bonny Cooley MD Primary Care Provider Antony Chakraborty MD Unavailable [phone] Mateo Cheema MD Unavailable [phone] Ermias Colón MD Unavailable Bonny Cooley MD Unavailable [phone] Pam Hernandez MD Unavailable [phone] Lázaro Horowitz MD Unavailable Jaime Grover MD Unavailable [phone] Toni Sheth MD Unavailable Toni Sheth MD Unavailable Bertram Elizabeth MD Unavailable Bonny Cooley MD Unavailable [phone] Aminata Youssef MD Primary Care Provider Bertram Elizabeth MD Unavailable Alex Johnson MD Unavailable Bonny Cooley MD Unavailable [phone] Bertram Elizabeth MD Unavailable [phone] Bertram Elizabeth MD Unavailable [phone] Alex Johnson MD Unavailable Encounter Details Date Type Department Care Team (Late st Contact Info) Description 06/23/2020 [facility] Medical Advice Adult Call Center [address] [place] [phone] Denia Allen Social History Tobacco Use [...] Sex Assigned at Female 08/28/2018 12:23 AM WATER PUMPING STATION ENGINEER Legal Sex Female 4:46 AM WATER PUMPING STATION ENGINEER Gender Identity Female 08/28/2018 12:23 AM WATER PUMPING STATION ENGINEER Sexual Orientation Straight 10/11/2019 2: 51 PM WATER PUMPING STATION ENGINEER COVID-19 Exposure Response Date Recorded In the last month, have you been in contact with someone who was confirmed or suspected to have Coronavirus / COVID-19? No / Unsure 06/23/2020 10:33 AM WATER PUMPING STATION ENGINEER documented as of this encounter Plan of Treatment Upcoming Encounters Date Type Department Care Team (Late st Contact Info) Description 04/25/2025 1:30 PM CDT Office Visit [facility] [address] [place] [address] Alex Johnson MD [address] [place] [address] documented as of this encounter Visit Diagnoses Not on filedocumented in this encounter Additional Health Concerns Infection Onset Date Last Indicated Resolved Time COVID-19 06/23/2020 06/23/2020 07/14/2020 11:4 0 PM WATER PUMPING STATION ENGINEER Recovered COVID 07/08/2020 07/08/2020 09/21/2020 1 1:39 PM WATER PUMPING STATION ENGINEER Assessment Noted Time PHQ-9 Depression Total Score: 11 020 2:18 PM CDT documented as of this encounter Care Teams Aquaculture Farmer Relationship Specialty Start Date End Date Bonny Cooley MD [address] [place] [address] PCP - General Family Practice 09/30/15 06/02/21 Aminata Youssef MD [facility] [address] [place] [address] PCP - General Internal Medicine 06/03/21 Bettye Gonzales MD MD Internal Medicine 04/10/15 Antony Chakraborty MD [address] [address] MD INTERNAL MEDICINE - ENDOCRINOLOGY, DIABETES & METABOLISM 11/13/15 Mateo Cheema MD [address] [address] Internal Medicine 08/06/16 Ermias Colón MD [address] 560545 Referring Physician Neurology 09/23/16 Bonny Cooley MD [address] [address] Assigned PCP 10/05/15 07/26/20 Pam Hernandez MD [address] [place] [address] [place] [address] Assigned Behavioral Health Provider 05/30/20 08/01/21 Lázaro Horowitz MD [facility] [address] [place] [address] Assigned Rheumatology Provider 05/30/20 07/19/20 Jaime Grover MD [address] [place] [address] Assigned Gastroenterology Provider 05/30/20 11/14/21 Toni Sheth MD [address] [place] [address] Assigned Pediatric Specialist Provider 05/30/20 09/07/20 Toni Sheth MD [address] [place] [address] Assigned Surgical Provider 05/30/20 04/18/21 Bertram Elizabeth MD [address] [place] [address] Assigned PCP 07/27/20 04/25/21 Bonny Cooley MD [address] [place] [address] Assigned PCP 04/26/21 08/15/21 Bertram Elizabeth MD [address] [address] Assigned PCP 08/16/21 10/24/21 Alex Johnson MD [address] [place] [address] Assigned Rheumatology Provider 10/18/21 04/15/23 Bonny Cooley MD [address] [address] Assigned PCP 10/25/21 04/02/22 Bertram Elizabeth MD [address] [address] Assigned PCP 04/03/22 07/23/22 Bertram Elizabeth MD [address] [address] Assigned PCP 10/02/22 04/29/23 Alex Johnson MD [address] [place] [address] Rheumatology 10/04/24 documented as of this encounter
--- OUTSIDE RECORDS SUMMARY | 2024-10-28 14:00 | XMS_ITS | Encounter Summary ---
Author Organization [facility] Address [address] [place] [address] Care Team Providers Care Sausage Cooker Name Role Phone Bettye Gonzales MD Unavailable + Bonny Cooley MD Primary Care Provider [phone] Antony Chakraborty MD Unavailable Mateo Cheema MD Unavailable [phone] Ermias Colón MD Unavailable Suzanne Fernández RN Unavailable [phone] Bonny Cooley MD Unavailable [phone] Bonny Cooley MD Unavailable [phone] Pam Hernandez MD Unavailable [phone] Lázaro Horowitz MD Unavailable Jaime Grover MD Unavailable Toni Sheth MD Unavailable Toni Sheth MD Unavailable Bertram Elizabeth MD Unavailable Bonny Cooley MD Unavailable +[phone] Aminata Youssef MD Primary Care Provider [phone] Bertram Elizabeth MD Unavailable +1- Alex Johnson MD Unavailable [phone] Bonny Cooley MD Unavailable [phone] Bertram Elizabeth MD Unavailable +1- Bertram Elizabeth MD Unavailable +1- Alex Johnson MD Unavailable [phone] Reason for Referral * Audiology - Closed Specialty Diagnoses / Procedures Referred By Contgeovani t Referred To Contact Diagnoses Change in hearing, bilateral Bonny Cooley MD [address] [place] [address] Phone: tel: fax: MULTIPLE LOCATIONS Referral ID Status Reason Start Date Expiration Date Visits Re quested Visits Authorized [id number] Closed 12/22/2016 12/22/2017 1 1 Comments Your provider has referred you to: [facility] [place] [email or web address] [facility] [place] [email or web address] Specialty Testing: Audiogram w/Tymps and Reflexes (Comprehensive Audiology Evaluation) Reason for Visit * Reason Onset Date Comments Hearing change 12/21/2016 Encounter Details Date Type Department Care Team (Late st Contact Info) Description 12/21/2016 MyC Medical Advice [facility] [address] [place] [address] [place] [address] [address] Hearing change Social History Tobacco Use Types Packs/Day Years Used Date Smoking Tobacco: Never Smokeless Tobacco: Never Alcohol Use Standard Drinks/Week Comments No 0 (1 standard drink = 0.6 oz pur e alcohol) Comments No Sex and Gender Information Value Date Recorded Sex Assigned at Female 08/28/2018 12:23 AM REIMBURSEMENT DIRECTOR Legal Sex Female 4:46 AM REIMBURSEMENT DIRECTOR Gender Identity Female 08/28/2018 12:23 AM REIMBURSEMENT DIRECTOR Sexual Orientation Straight 10/11/2019 2: 51 PM REIMBURSEMENT DIRECTOR documented as of this encounter Miscellaneous Notes * Telephone Encounter - Katlin Germain RN - 12/22/2016 10:51 AM CDT Hemodialysis Lab Technician responded as per below. MARY KATE Johnson, RN * Telephone Encounter - Bonny Cooley [...] Description 04/25/2025 1:30 PM CDT Office Visit [facility] [address] [place] [phone] Alex Johnson MD [address] [place] [address] Scheduled Referrals Name Type Priority Associated Diagnoses Orde r Schedule AUDIOLOGY ADULT REFERRAL Referral Routine Change in hearing, bilateral Ordered: 12/22/2016 documented as of this encounter Visit Diagnoses Diagnosis Change in hearing, bilateral- Primary documented in this encounter Additional Health Concerns Infection Onset Date Last Indicated Resolved Time COVID-19 06/23/2020 06/23/2020 07/14/2020 11:4 0 PM REIMBURSEMENT DIRECTOR Recovered COVID 07/08/2020 07/08/2020 09/21/2020 1 1:39 PM REIMBURSEMENT DIRECTOR Assessment Noted Time PHQ-9 Depression Total Score: 6 09/22/19 17 7:27 AM REIMBURSEMENT DIRECTOR documented as of this encounter Care Teams Sausage Cooker Relationship Specialty Start Date End Date Bonny Cooley MD [address] [place] [address] PCP - General Family Practice 09/30/15 06/02/21 Bonny Cooley MD [address] [address] PCP - Assigned PCP 10/05/15 10/10/18 Aminata Youssef MD [facility] [address] [place] [address] PCP - General Internal Medicine 06/03/21 Bettye Gonzales MD Internal Medicine 04/10/15 Antony Chakraborty MD [address] [place] [address] [phone] INTERNAL MEDICINE - ENDOCRINOLOGY, DIABETES & METABOLISM 11/13/15 Mateo Cheema MD [address] [place] [address] [phone] Internal Medicine 08/06/16 Ermias Colón MD [address] [place] [address] Referring Physician Neurology 09/23/16 Suzanne Fernández, RN Clinic Oracle Database Manager Primary Care - CC 02/28/18 Bonny Cooley MD [address] [id number] Assigned PCP 10/05/15 07/26/20 Pam Hernandez MD [address] [place] [address] [place] [address] Assigned Behavioral Health Provider 05/30/20 08/01/21 Lázaro Horowitz MD [facility] [address] [place], [place] 1537[address] Assigned Rheumatology Provider 05/30/20 07/19/20 Jaime Grover MD [address] [place] [address] Assigned Gastroenterology Provider 05/30/20 11/14/21 Toni Sheth MD [address] [place] [address] [phone] Assigned Pediatric Specialist Provider 05/30/20 09/07/20 Toni Sheth MD [address] [place] [address] [phone] Assigned Surgical Provider 05/30/20 04/18/21 Bertram Elizabeth MD 0 [facility] 200 [place] [address] Assigned PCP 07/27/20 04/25/21 Bonny Cooley MD [address] [address] Assigned PCP 04/26/21 08/15/21 Bertram Elizabeth MD [address] [address] Assigned PCP 08/16/21 10/24/21 Alex Johnson MD [address] [place] [address] Assigned Rheumatology Provider 10/18/21 04/15/23 Bonny Cooley MD [address] [address] Assigned PCP 10/25/21 04/02/22 Bertram Elizabeth MD [address] [address] Assigned PCP 04/03/22 07/23/22 Bertram Elizabeth MD [address] [address] Assigned PCP 10/02/22 04/29/23 Alex Johnson MD [address] [place] [address] Rheumatology 10/04/24 documented as of this encounter
--- OUTSIDE RECORDS SUMMARY | 2024-10-28 14:00 | XMS_ITS | Encounter Summary ---
Author Organization [facility] Address [address] [place] [address] Care Team Providers Care Powder Expert Name Role Phone Bettye Gonzales MD Unavailable + Bonny Cooley MD Primary Care Provider [phone] Antony Chakraborty MD Unavailable Mateo Cheema MD Unavailable Ermias Colón MD Unavailable Suzanne Fernández RN Unavailable [phone] Bonny Cooley MD Unavailable [phone] Bonny Cooley MD Unavailable [phone] Pam Hernandez MD Unavailable [phone] Lázaro Horowitz MD Unavailable Jaime Grover MD Unavailable Toni Sheth MD Unavailable Toni Sheth MD Unavailable Bertram Elizabeth MD Unavailable Bonny Cooley MD Unavailable [phone] Aminata Youssef MD Primary Care Provider [phone] Bertram Elizabeth MD Unavailable [phone] Alex Johnson MD Unavailable Bonny Cooley MD Unavailable [phone] Bertram Elizabeth MD Unavailable [phone] Bertram Elizabeth MD Unavailable [phone] Alex Johnson MD Unavailable Encounter Details Date Type Department Care Team (Late st Contact Info) Description 12/14/2016 MyC Medical Advice [facility] Endocrinology [address] [facility] 3rd [place] [address] Mateo Cheema MD [address] [address] Social History Tobacco Use Types Packs/Day Years Used Date Smoking Tobacco: Never Smokeless Tobacco: Never Alcohol Use Standard Drinks/Week Comments No 0 (1 standard drink = 0.6 oz pur e alcohol) Comments No Sex and Gender Information Value Date Recorded Sex Assigned at Female 08/28/2018 12:23 AM NETWORK TECHNOLOGY INSTRUCTOR Legal Sex Female 4:46 AM NETWORK TECHNOLOGY INSTRUCTOR Gender Identity Female 08/28/2018 12:23 AM NETWORK TECHNOLOGY INSTRUCTOR Sexual Orientation Straight 10/11/2019 2: 51 PM NETWORK TECHNOLOGY INSTRUCTOR documented as of this encounter Plan of Treatment Upcoming Encounters Date Type Department Care Team (Late st Contact Info) Description 04/25/2025 1:30 PM CDT Office Visit [facility] [address] [address] Alex Johnson MD [address] [place] [address] 88 [place] [address] documented as of this encounter Visit Diagnoses Not on filedocumented in this encounter Additional Health Concerns Infection Onset Date Last Indicated Resolved Time COVID-19 06/23/2020 06/23/2020 07/14/2020 11:4 0 PM NETWORK TECHNOLOGY INSTRUCTOR Recovered COVID 07/08/2020 07/08/2020 09/21/2020 1 1:39 PM NETWORK TECHNOLOGY INSTRUCTOR Assessment Noted Time PHQ-9 Depression Total Score: 6 09/22/19 17 7:27 AM NETWORK TECHNOLOGY INSTRUCTOR documented as of this encounter Care Teams Powder Expert Relationship Specialty Start Date End Date Bonny Cooley MD [address] [place] [address] PCP - General Family Practice 09/30/15 06/02/21 Bonny Cooley MD [address] [address] PCP - Assigned PCP 10/05/15 10/10/18 Aminata Youssef MD [facility] & [address] [address] PCP - General Internal Medicine 06/03/21 Bettye Gonzales MD Internal Medicine 04/10/15 Antony Chakraborty MD [address] [place] [address] [address] INTERNAL MEDICINE - ENDOCRINOLOGY, DIABETES & METABOLISM 11/13/15 Mateo Cheema MD [address] [place] [address] [address] Internal Medicine 08/06/16 Ermias Colón MD [address] [address] Referring Physician Neurology 09/23/16 Suzanne Fernández, RN Clinic Sales Service Route Manager Primary Care - CC 02/28/18 Bonny Cooley MD 2270 [facility] 200 [place] [address] Assigned PCP 10/05/15 07/26/20 Pam Hernandez MD [address] [place] [address] [place] [address] Assigned Behavioral Health Provider 05/30/20 08/01/21 Lázaro Horowitz MD [place] [address] [place] [address] Assigned Rheumatology Provider 05/30/20 07/19/20 Jaime Grover MD [address] [place] [address] Assigned Gastroenterology Provider 05/30/20 11/14/21 Toni Sheth MD [address] [place] [address] Assigned Pediatric Specialist Provider 05/30/20 09/07/20 Toni Sheth MD [address] [place] [address] Assigned Surgical Provider 05/30/20 04/18/21 Bertram Elizabeth MD 2270 [facility] 200 [place] [address] Assigned PCP 07/27/20 04/25/21 Bonny Cooley MD [address] [address] Assigned PCP 04/26/21 08/15/21 Bertram Elizabeth MD [address] [address] Assigned PCP 08/16/21 10/24/21 Alex Johnson MD [address] [place] [address] Assigned Rheumatology Provider 10/18/21 04/15/23 Bonny Cooley MD [address] [address] Assigned PCP 10/25/21 04/02/22 Bertram Elizabeth MD [address] [address] Assigned PCP 04/03/22 07/23/22 Bertram Elizabeth MD [address] [address] Assigned PCP 10/02/22 04/29/23 Alex Johnson MD [address] [place] [address] Rheumatology 10/04/24 documented as of this encounter
--- OUTSIDE RECORDS SUMMARY | 2024-10-28 14:00 | XMS_ITS | Clinical Summary ---
Author Organization [employer] Address [address] [place] [address] Care Team Providers Care Marketing Communications Coordinator Name Role Phone Aminata Youssef MD Primary Care Provider [phone] Allergies Active Allergy Reactions Criticality Noted Date Comments Dust Mites *Unknown - Follow up needed 05/12/2016 Milk Other - Describe In Comment Field 12/01/2018 foggy and tired Mold *Unknown - Follow up needed 05/12/2016 Unlisted Allergen (Include Detail In Comments) *Unknown - Follow up needed 05/12/2016 Trees Tree And Shrub Pollen *Unknown 11/19/2013 Medications GINKGO BILOBA (GINKOBA ORAL) Twice daily Act bernardino ASCORBIC ACID (VITAMIN C ORAL) Take 4,000 mg by mouth 2 times daily. Active AMLODIPINE BESYLATE/BENAZE PRIL (AMLODIPINE 10 MG AND BENAZEPRIL 20 MG, LOTREL,) Take 1 capsule by mouth once daily. Active buPROPion (WELLBUTRIN SR) 150 mg Sustained-Relea se tablet Take 150 mg by mouth 2 times daily. Active MAGNESIUM OXIDE/MAG AA CHELATE (MAGNESIUM, OXIDE/AA CHELATE, ORAL) Take 1,000 mGy by mouth once daily. Active cholecalciferol , vitamin D3, 4,000 unit cap Take 1 [...] 0 05/31/2022 Active methotrexate (RHEUMATREX) 2.5 mg tabletIndicatio ns:Rheumatoid arthritis of multiple sites with negative rheumatoid [...] and Fami ly Not on file 05/31/2022 Comments No Sex and Gender Information Value Date Recorded Sex Assigned at Not on file Legal Sex Female 7:09 AM IT COMMUNICATIONS SPECIALIST Gender Identity Not on file Sexual Orientation Not on file Occupation Industry Job Start Date Job End Date Retired Not on file Not on file Not on file Obstetrics History Last Filed Vital Signs Vital Sign Reading Time Taken Comments Blood Pressure 128/75 05/31/2022 12:55 PM CDT Pulse 92 05/31/2022 12:55 PM CDT Temperature 36.4 C (97.6 F) 09/01/2016 9:00 AM IT COMMUNICATIONS SPECIALIST Respiratory Rate 16 09/01/2016 10:42 AM IT COMMUNICATIONS SPECIALIST Oxygen Saturation 96% 05/31/2022 12:55 PM CDT Inhaled Oxygen Concentration - - Weight 89.4 kg (197 lb) 05/31/2022 12:55 PM CDT w/ shoes Height 166.4 cm (5' 5.5) 08/31/2016 9:57 AM IT COMMUNICATIONS SPECIALIST Body Mass Index 32.28 08/31/2016 9:57 AM IT COMMUNICATIONS SPECIALIST Plan of Treatment Health Maintenance Due Date Last Done Comments Tdap 1955 Depression screening for age 12+ 1956 BMI (ht and wt on same day) for age 18+ 1962 Zoster (shingles) series for age 50+ (1 of 2) 1963 Tetanus booster 1964 Pneumococcal series for age 50+ (1 of 1 - PCV) 1994 DEXA/DXA scan for age 65+ 2009 Medicare Wellness for age 65+ 2009 RSV vaccine for adults or (1 - 1-dose 75+ series) 2019 COVID-19 vaccine series ( season) 2024 05/30/2022, 01/24/2022, 05/12/2021, Additional history exists Influenza Vaccine (#1) 2024 Medical Devices Implanted Type Area Garment Manufacturer Device Identifier Shelf Expiration Date Model / Serial / Lot Lens Iol Zcb00 17.0 - [id number] Implanted:Qty: 1 on 05/14/2016 by Kiran Chase MD at [facility] Left: Eye [employer] 12/17/2019 ZCB00# / [id number] / Iol [place] +17.5 Tecnis Zcb00 - [id number] Implanted:Qty: 1 on 09/01/2016 by Kiran Chase MD at [facility] Right: Eye [employer] 05/02/2020 ZCB00# / [id number] / Insurance MEDICARE PART A HB ONLY MEDICARE PART B HB ONLY MEDICARE PB ONLY Advance Directives * Full Code (Latest Code Status on File) Date Activated Date Inactivated Comments 09/01/2016 8:43 AM 09/01/2016 1:26 PM Question Answer Comments Code Status Discussion: Not Discussed * Full Code Date Activated Date Inactivated Comments 05/14/2016 9:47 AM 05/14/2016 2:50 PM Question Answer Comments Code Status Discussion: Not Discussed Care Teams Marketing Communications Coordinator Relationship Specialty Start Date End Date Aminata Youssef MD [address] [place] [address] PCP - General Internal Medicine 05/27/21
--- OUTSIDE RECORDS SUMMARY | 2024-10-28 14:00 | XMS_ITS | Encounter Summary ---
Author Organization [place] Address [address] [place] [address] Care Team Providers Care Rig Supervisor Name Role Phone Bettye Gonzales MD Unavailable + Bonny Cooley MD Primary Care Provider Antony Chakraborty MD Unavailable Mateo Cheema MD Unavailable Ermias Colón MD Unavailable Bonny Cooley MD Unavailable [phone] Pam Hernandez MD Unavailable [phone] Lázaro Horowitz MD Unavailable Jaime Grover MD Unavailable Toin Sheth MD Unavailable Toni Sheth MD Unavailable Bertram Elizabeth MD Unavailable Bonny Cooley MD Unavailable [phone] Aminata Youssef MD Primary Care Provider Bertram Elizabeth MD Unavailable Alex Johnson MD Unavailable Bonny Cooley MD Unavailable Bertram Elizabeth MD Unavailable Bertram Elizabeth MD Unavailable [phone] Alex Johnson MD Unavailable Encounter Details Date Type Department Care Team (Late st Contact Info) Description 04/08/2020 MyC Medical Advice [address] [address] Rima Fransisco Social History Tobacco Use Types Packs/Day Years Used Date Smoking Tobacco: Former Cigarettes 2 3 0 04/23/1976 - 12/17/1977 Smokeless Tobacco: Never Alcohol Use Standard Drinks/Week Comments No 0 (1 standard drink = 0.6 oz pur e alcohol) PHQ-2 Answer Date Recorded PHQ-2 Score 4 01/31/2020 Comments No Sex and Gender Information Value Date Recorded Sex Assigned at Female 08/28/2018 12:23 AM HARDWOOD FLOOR FINISHER Legal Sex Female 4:46 AM HARDWOOD FLOOR FINISHER Gender Identity Female 08/28/2018 12:23 AM HARDWOOD FLOOR FINISHER Sexual Orientation Straight 10/11/2019 2: 51 PM HARDWOOD FLOOR FINISHER COVID-19 Exposure Response Date Recorded In the last month, have you been in contact with someone who was confirmed or suspected to have Coronavirus / COVID-19? No / Unsure 04/11/2020 8:09 PM CDT documented as of this encounter Plan of Treatment Upcoming Encounters Date Type Department Care Team (Late st Contact Info) Description 04/25/2025 1:30 PM CDT Office Visit [facility] [address] [address] Alex Johnson MD [address] [place] [address] documented as of this encounter Visit Diagnoses Not on filedocumented in this encounter Additional Health Concerns Infection Onset Date Last Indicated Resolved Time COVID-19 06/23/2020 06/23/2020 07/14/2020 11:4 0 PM HARDWOOD FLOOR FINISHER Recovered COVID 07/08/2020 07/08/2020 09/21/2020 1 1:39 PM HARDWOOD FLOOR FINISHER Assessment Noted Time PHQ-9 Depression Total Score: 11 020 2:18 PM CDT documented as of this encounter Care Teams Rig Supervisor Relationship Specialty Start Date End Date Bonny Cooley MD [address] [place] [address] PCP - General Family Practice 09/30/15 06/02/21 Aminata Youssef MD [facility] [address] [place] [address] PCP - General Internal Medicine 06/03/21 Bettye Gonzales MD MD Internal Medicine 04/10/15 Antony Chakraborty MD [address] [address] INTERNAL MEDICINE - ENDOCRINOLOGY, DIABETES & METABOLISM 11/13/15 Mateo Cheema MD [address] 289565 Internal Medicine 08/06/16 Ermias Colón MD [address] [phone] Referring Physician Neurology 09/23/16 Bonny Cooley MD [address] [address] Assigned PCP 10/05/15 07/26/20 Pam Hernandez MD [address] [place] [address] MALLY LYNNE [address] Assigned Behavioral Health Provider 05/30/20 08/01/21 Lázaro Horowitz MD [place] [address] [place] [address] Assigned Rheumatology Provider 05/30/20 07/19/20 Jaime Grover MD [address] [place] [address] Assigned Gastroenterology Provider 05/30/20 11/14/21 Toni Sheth MD [address] [place] [address] Assigned Pediatric Specialist Provider 05/30/20 09/07/20 Toni Sheth MD [address] [place] [address] Assigned Surgical Provider 05/30/20 04/18/21 Bertram Elizabeth MD [address] [place] [address] Assigned PCP 07/27/20 04/25/21 Bonny Cooley MD [address] [address] Assigned PCP 04/26/21 08/15/21 Bertram Elizabeth MD 0 [facility] 200 [place] [address] Assigned PCP 08/16/21 10/24/21 Alex Johnson MD [address] [address] Assigned Rheumatology Provider 10/18/21 04/15/23 Bonny Cooley MD [address] [address] Assigned PCP 10/25/21 04/02/22 Bertram Elizabeth MD [address] [address] Assigned PCP 04/03/22 07/23/22 Bertram Elizabeth MD [address] [address] Assigned PCP 10/02/22 04/29/23 Alex Johnson MD [address] [place] [address] Rheumatology 10/04/24 documented as of this encounter
--- OUTSIDE RECORDS SUMMARY | 2024-10-28 14:00 | XMS_ITS | Encounter Summary ---
Author Organization [facility] Address [address] [place] [address] Care Team Providers Care Rn Integrity Name Role Phone Bettye Gonzales MD Unavailable + Bonny Cooley MD Primary Care Provider Antony Chakraborty MD Unavailable [phone] Mateo Cheema MD Unavailable Ermias Colón MD Unavailable Bonny Cooley MD Unavailable [phone] Pam Hernandez MD Unavailable [phone] Lázaro Horowitz MD Unavailable Jaime Grover MD Unavailable Toni Sheth MD Unavailable Toni Sheth MD Unavailable Bertram Elizabeth MD Unavailable Bonny Cooley MD Unavailable [phone] Aminata Youssef MD Primary Care Provider Bertram Elizabeth MD Unavailable Alex Johnson MD Unavailable Bonny Cooley MD Unavailable [phone] Bertram Elizabeth MD Unavailable Bertram Elizabeth MD Unavailable [phone] Alex Johnson MD Unavailable [phone] Encounter Details Date Type Department Care Team (Late st Contact Info) Description 11/26/2019 MyC Medical Advice [facility] Rhe[facility]ology Clinic [address] [address] Toni Del Angel MD [address] [place] [address] Social History Tobacco Use Types [...] Sex Assigned at Female 08/28/2018 12:23 AM DB2 DBA Legal Sex Female 4:46 AM DB2 DBA Gender Identity Female 08/28/2018 12:23 AM DB2 DBA Sexual Orientation Straight 10/11/2019 2: 51 PM DB2 DBA COVID-19 Exposure Response Date Recorded In the last month, have you been in contact with someone who was confirmed or suspected to have Coronavirus / COVID-19? No / Unsure 11/23/2019 2:47 PM CDT documented as of this encounter Plan of Treatment Upcoming Encounters Date Type Department Care Team (Late st Contact Info) Description 04/25/2025 1:30 PM CDT Office Visit [facility] [address] [address] Alex Johnson MD [address] [place] [address] documented as of this encounter Visit Diagnoses Not on filedocumented in this encounter Additional Health Concerns Infection Onset Date Last Indicated Resolved Time COVID-19 06/23/2020 06/23/2020 07/14/2020 11:4 0 PM DB2 DBA Recovered COVID 07/08/2020 07/08/2020 09/21/2020 1 1:39 PM DB2 DBA Assessment Noted Time PHQ-9 Depression Total Score: 15 020 2:41 PM DB2 DBA documented as of this encounter Care Teams Rn Integrity Relationship Specialty Start Date End Date Bonny Cooley MD [address] [place] [address] PCP - General Family Practice 09/30/15 06/02/21 Aminata Youssef MD [address] [address] PCP - General Internal Medicine 06/03/21 Bettye Gonzales MD Internal Medicine 04/10/15 Antony Chakraborty MD [address] [address] INTERNAL MEDICINE - ENDOCRINOLOGY, DIABETES & METABOLISM 11/13/15 Mateo Cheema MD [address] 564525 Internal Medicine 08/06/16 Ermias Colón MD [address] [address] Referring Physician Neurology 09/23/16 Bonny Cooley MD [address] [place] [address] Assigned PCP 10/05/15 07/26/20 Pam Hernandez MD [address] [place] [address] [place] [address] Assigned Behavioral Health Provider 05/30/20 08/01/21 Lázaro Horowitz MD [address] [address] Assigned Rheumatology Provider 05/30/20 07/19/20 Jaime Grover MD [address] [place] [address] Assigned Gastroenterology Provider 05/30/20 11/14/21 Toni Sheth MD [address] [place] [address] [id number] Assigned Pediatric Specialist Provider 05/30/20 09/07/20 Toni Sheth MD [address] [place] [address] [phone] Assigned Surgical Provider 05/30/20 04/18/21 Bertram Elizabeth MD [address] [place] [address] Assigned PCP 07/27/20 04/25/21 Bonny Cooley MD [address] [place] [address] Assigned PCP 04/26/21 08/15/21 Bertram Elizabeth MD [address] [place] [address] Assigned PCP 08/16/21 10/24/21 Alex Johnson MD [address] [place] [address] Assigned Rheumatology Provider 10/18/21 04/15/23 Bonny Cooley MD [address] [place] [address] Assigned PCP 10/25/21 04/02/22 Bertram Elizabeth MD [address] [place] [address] Assigned PCP 04/03/22 07/23/22 Bertram Elizabeth MD [address] [place] [address] Assigned PCP 10/02/22 04/29/23 Alex Johnson MD [address] [place] [address] Rheumatology 10/04/24 documented as of this encounter
--- OUTSIDE RECORDS SUMMARY | 2024-10-28 14:00 | XMS_ITS | Encounter Summary ---
Author Organization [place] Address [address] [place] [address] Care Team Providers Care Linen Tech Name Role Phone Bettye Gonzales MD Unavailable + Bonny Cooley MD Primary Care Provider Antony Chakraborty MD Unavailable Mateo Cheema MD Unavailable Ermias Colón MD Unavailable Suzanne Fernández RN Unavailable [phone] Bonny Cooley MD Unavailable [phone] Bonny Cooley MD Unavailable [phone] Pam Hernandez MD Unavailable [phone] Lázaro Horowitz MD Unavailable Jaime Grover MD Unavailable Toni Sheth MD Unavailable Toni Sheth MD Unavailable Bertram Elizabeth MD Unavailable Bonny Cooley MD Unavailable [phone] Aminata Youssef MD Primary Care Provider Bertram Elizabeth MD Unavailable [phone] Alex Johnson MD Unavailable Bonny Cooley MD Unavailable [phone] Bertram Elizabeth MD Unavailable [phone] Bertram Elizabeth MD Unavailable [phone] Alex Johnson MD Unavailable [phone] Reason for Visit * Reason Onset Date Comments Faintness 01/01/2017 Medication Question 01/01/2017 Lasix, and a rthritis/anti-depression med Encounter Details Date Type Department Care Team (Late st Contact Info) Description 01/01/2017 MyC Medical Advice [address] [address] Bonny Cooley MD [address] [address] Faintness; Medication Question (Lasix, and... Social History Tobacco Use Types Packs/Day Years Used Date Smoking Tobacco: Never Smokeless Tobacco: Never Alcohol Use Standard Drinks/Week Comments No 0 (1 standard drink = 0.6 oz pur e alcohol) Comments No Sex and Gender Information Value Date Recorded Sex Assigned at Female 08/28/2018 12:23 AM SOLE BUFFER Legal Sex Female 4:46 AM SOLE BUFFER Gender Identity Female 08/28/2018 12:23 AM SOLE BUFFER Sexual Orientation Straight 10/11/2019 2: 51 PM SOLE BUFFER documented as of this encounter Miscellaneous Notes * Telephone Encounter - Nolvia Townsend RN - 01/04/2017 4:49 PM CDT Message to patient with info from Dr. Cooley as below. MARY KATE Lorenzana, RN [facility] * Telephone Encounter - Bonny Cooley [...] Description 04/25/2025 1:30 PM CDT Office Visit [facility] [address] [address] Alex Johnson MD [address] [place] [address] documented as of this encounter Visit Diagnoses Diagnosis Generalized edema Edema documented in this encounter Additional Health Concerns Infection Onset Date Last Indicated Resolved Time COVID-19 06/23/2020 06/23/2020 07/14/2020 11:4 0 PM SOLE BUFFER Recovered COVID 07/08/2020 07/08/2020 09/21/2020 1 1:39 PM SOLE BUFFER Assessment Noted Time PHQ-9 Depression Total Score: 6 09/22/19 17 7:27 AM SOLE BUFFER documented as of this encounter Care Teams Linen Tech Relationship Specialty Start Date End Date Bonny Cooley MD [address] [place] [address] PCP - General Family Practice 09/30/15 06/02/21 Bonny Cooley MD [address] [phone] PCP - Assigned PCP 10/05/15 10/10/18 Aminata Youssef MD [facility] & [address] [address] PCP - General Internal Medicine 06/03/21 Bettye Gonzales MD Internal Medicine 04/10/15 Antony Chakraborty MD [address] [address] INTERNAL MEDICINE - ENDOCRINOLOGY, DIABETES & METABOLISM 11/13/15 Mateo Cheema MD [address] 3974[address] Internal Medicine 08/06/16 Ermias Colón MD [address] 834[address] Referring Physician Neurology 09/23/16 Suzanne Fernández, RN [facility] Primary Care - CC 02/28/18 Bonny Cooley MD [address] [address] Assigned PCP 10/05/15 07/26/20 Pam Hernandez MD [address] [place] [address] [place] [address] Assigned Behavioral Health Provider 05/30/20 08/01/21 Lázaro Horowitz MD [facility] [address] [place] [address] Assigned Rheumatology Provider 05/30/20 07/19/20 Jaime Grover MD [address] [place] [address] Assigned Gastroenterology Provider 05/30/20 11/14/21 Toni Sheth MD [address] [place] [address] Assigned Pediatric Specialist Provider 05/30/20 09/07/20 Toni Sheth MD [address] [place] [address] Assigned Surgical Provider 05/30/20 04/18/21 Bertram Elizabeth MD [address] [address] Assigned PCP 07/27/20 04/25/21 Bonny Cooley MD [address] [address] Assigned PCP 04/26/21 08/15/21 Bertram Elizabeth MD [address] [address] Assigned PCP 08/16/21 10/24/21 Alex Johnson MD [address] [place] [address] Assigned Rheumatology Provider 10/18/21 04/15/23 Bonny Cooley MD [address] [address] Assigned PCP 10/25/21 04/02/22 Bertram Elizabeth MD [address] [address] Assigned PCP 04/03/22 07/23/22 Bertram Elizabeth MD [address] [address] Assigned PCP 10/02/22 04/29/23 Alex Johnson MD [address] [place] [address] Rheumatology 10/04/24 documented as of this encounter
--- OUTSIDE RECORDS SUMMARY | 2024-10-28 14:00 | XMS_ITS | Encounter Summary ---
Author Organization [place] Address [address] [place] [address] Care Team Providers Care Care Transitions Manager Name Role Phone Bettye Gonzales MD Unavailable + Bonny Cooley MD Primary Care Provider [phone] Antony Chakraborty MD Unavailable Mateo Cheema MD Unavailable Ermias Colón MD Unavailable Suzanne Fernández RN Unavailable [phone] Bonny Cooley MD Unavailable [phone] Bonny Cooley MD Unavailable [phone] Pam Hernandez MD Unavailable [phone] Lázaro Horowitz MD Unavailable Jaime Grover MD Unavailable Toni Sheth MD Unavailable Toni Sheth MD Unavailable Bertram Elizabeth MD Unavailable Bonny Cooley MD Unavailable [phone] Aminata Youssef MD Primary Care Provider Bertram Elizabeth MD Unavailable Alex Johnson MD Unavailable Bonny Cooley MD Unavailable Bertram Elizabeth MD Unavailable [phone] Bertram Elizabeth MD Unavailable [phone] Alex Johnson MD Unavailable [phone] Reason for Visit * Reason Onset Date Comments Refill Request 12/08/2017 CELECOXIB 100MG CAPS Encounter Details Date Type Department Care Team (Late st Contact Info) Description 12/08/[address] [address] Bonny Cooley MD [address] [phone] Refill Request (CELECOXIB 100MG CAPS) Social History Tobacco Use Types Packs/Day Years Used Date Smoking Tobacco: Former Cigarettes 2 3 0 04/23/1976 - 12/17/1977 Smokeless Tobacco: Never Alcohol Use Standard Drinks/Week Comments No 0 (1 standard drink = 0.6 oz pur e alcohol) Comments No Sex and Gender Information Value Date Recorded Sex Assigned at Female 08/28/2018 12:23 AM SALES OPERATIONS CONSULTANT Legal Sex Female 4:46 AM SALES OPERATIONS CONSULTANT Gender Identity Female 08/28/2018 12:23 AM SALES OPERATIONS CONSULTANT Sexual Orientation Straight 10/11/2019 2: 51 PM SALES OPERATIONS CONSULTANT documented as of this encounter Miscellaneous Notes * Telephone Encounter - Bonny Cooley MD - 12/13/2017 2:15 PM CDT Refill done for one month. Can pt follow up for a visit. DM * Telephone Encounter - Tara Lou RN - 12/12/2017 6:15 PM CDT ALT not in range Routing to provider per protocol. Tara Lou RN * Telephone Encounter - Sari Kessler [...] 1:30 PM CDT Office Visit [facility] [place] [address] [facility] 200 [place] [address] Alex Johnson MD [address] [place] [address] 88 [place], [place] 938155 documented as of this encounter Visit Diagnoses Diagnosis Osteoarthritis, unspecified osteoarthritis type, unspecified site documented in this encounter Additional Health Concerns Infection Onset Date Last Indicated Resolved Time COVID-19 06/23/2020 06/23/2020 07/14/2020 11:4 0 PM SALES OPERATIONS CONSULTANT Recovered COVID 07/08/2020 07/08/2020 09/21/2020 1 1:39 PM SALES OPERATIONS CONSULTANT Assessment Noted Time PHQ-9 Depression Total Score: 6 11/04/19 18 7:48 AM CDT documented as of this encounter Care Teams Care Transitions Manager Relationship Specialty Start Date End Date Bonny Cooley MD [address] [place] [address] PCP - General Family Practice 09/30/15 06/02/21 Bonny Cooley MD 2270 [facility] 200 [place] [address] PCP - Assigned PCP 10/05/15 10/10/18 Aminata Youssef MD [facility] [address] [place] [address] PCP - General Internal Medicine 06/03/21 Bettye Gonzales MD Internal Medicine 04/10/15 Antony Chakraborty MD [address] [place] [address] [address] INTERNAL MEDICINE - ENDOCRINOLOGY, DIABETES & METABOLISM 11/13/15 Mateo Cheema MD [address] [place] [address] Internal Medicine 08/06/16 Ermias Colón MD [address] [place] [address] Referring Physician Neurology 09/23/16 Suzanne Fernández RN Clinic Infrastructure Developer Primary Care - CC 02/28/18 Bonny Cooley MD [address] [phone] Assigned PCP 10/05/15 07/26/20 Pam Hernandez MD [address] [place] [address] [place] [address] Assigned Behavioral Health Provider 05/30/20 08/01/21 Lázaro Horowitz MD [address] [address] Assigned Rheumatology Provider 05/30/20 07/19/20 Jaime Grover MD [address] [place] [address] Assigned Gastroenterology Provider 05/30/20 11/14/21 Toni Sheth MD [address] [place] [address] Assigned Pediatric Specialist Provider 05/30/20 09/07/20 Toni Sheth MD [address] [place] [address] Assigned Surgical Provider 05/30/20 04/18/21 [place] [address] [place] [address] Assigned PCP 07/27/20 04/25/21 Bonny Cooley MD [address] [place] [address] Assigned PCP 04/26/21 08/15/21 Bertram Elizabeth MD [address] [place] [address] Assigned PCP 08/16/21 10/24/21 Alex Johnson MD [address] [place] [address] Assigned Rheumatology Provider 10/18/21 04/15/23 Bonny Cooley MD [address] [place] [address] Assigned PCP 10/25/21 04/02/22 Bertram Elizabeth MD [address] [place] [address] Assigned PCP 04/03/22 07/23/22 Bertram Elizabeth MD [address] [place] [address] Assigned PCP 10/02/22 04/29/23 Alex Johnson MD [address] [place] [address] Rheumatology 10/04/24 documented as of this encounter
--- OUTSIDE RECORDS SUMMARY | 2024-10-28 14:00 | XMS_ITS | Encounter Summary ---
Author Organization [place] Address [address] [place] [address] Care Team Providers Care Magnetic Resonance Technologist Name Role Phone Bettye Gonzales MD Unavailable + Bonny Cooley MD Primary Care Provider Antony Chakraborty MD Unavailable Mateo Cheema MD Unavailable [phone] Ermias Colón MD Unavailable Bonny Cooley MD Unavailable [phone] Pam Hernandez MD Unavailable [phone] Lázaro Horowitz MD Unavailable Jaime Grover MD Unavailable Toni Sheth MD Unavailable Toni Sheth MD Unavailable Bertram Elizabeth MD Unavailable Bonny Cooley MD Unavailable [phone] Aminata Youssef MD Primary Care Provider Bertram Elizabeth MD Unavailable Alex Johnson MD Unavailable [phone] Bonny Cooley MD Unavailable [phone] Bertram Elizabeth MD Unavailable [phone] Bertram Elizabeth MD Unavailable [phone] Alex Johnson MD Unavailable [phone] Encounter Details Date Type Department Care Team (Late st Contact Info) Description 06/06/2020 MyC Medical Advice [facility] [address] [address] Jaime Grover MD [address] [place] [address] Social History Tobacco Use Types Packs/Day Years Used Date Smoking Tobacco: Former Cigarettes 2 3 0 04/23/1976 - 12/17/1977 Smokeless Tobacco: Never Alcohol Use Standard Drinks/Week Comments No 0 (1 standard drink = 0.6 oz pur e alcohol) PHQ-2 Answer Date Recorded PHQ-2 Score 4 01/31/2020 Comments No Sex and Gender Information Value Date Recorded Sex Assigned at Female 08/28/2018 12:23 AM IT MANAGER Legal Sex Female 4:46 AM IT MANAGER Gender Identity Female 08/28/2018 12:23 AM IT MANAGER Sexual Orientation Straight 10/11/2019 2: 51 PM IT MANAGER COVID-19 Exposure Response Date Recorded In the last month, have you been in contact with someone who was confirmed or suspected to have Coronavirus / COVID-19? No / Unsure 06/06/2020 10:42 AM CDT documented as of this encounter Plan of Treatment Upcoming Encounters Date Type Department Care Team (Late Contact Info) Description 04/25/2025 1:30 PM CDT Office Visit [facility] [address] [phone] Alex Johnson MD [address] [place] [address] documented as of this encounter Visit Diagnoses Not on filedocumented in this encounter Additional Health Concerns Infection Onset Date Last Indicated Resolved Time COVID-19 06/23/2020 06/23/2020 07/14/2020 11:4 0 PM IT MANAGER Recovered COVID 07/08/2020 07/08/2020 09/21/2020 1 1:39 PM IT MANAGER Assessment Noted Time PHQ-9 Depression Total Score: 11 020 2:18 PM CDT documented as of this encounter Care Teams Magnetic Resonance Technologist Relationship Specialty Start Date End Date Bonny Cooley MD [address] [place] [address] PCP - General Family Practice 09/30/15 06/02/21 Aminata Youssef MD [facility] & [address] [place] [address] [address] PCP - General Internal Medicine 06/03/21 Bettye Gonzales MD MD Internal Medicine 04/10/15 Antony Chakraborty MD [address] [address] INTERNAL MEDICINE - ENDOCRINOLOGY, DIABETES & METABOLISM 11/13/15 Mateo Cheema MD 420 [facility] [address] [address] Internal Medicine 08/06/16 Ermias Colón MD 420 [facility] [address] [address] Referring Physician Neurology 09/23/16 Bonny Cooley MD [address] [address] Assigned PCP 10/05/15 07/26/20 Pam Hernandez MD [address] [place] [address] [place] [address] Assigned Behavioral Health Provider 05/30/20 08/01/21 Lázaro Horowitz MD [facility] [address] [place] [address] Assigned Rheumatology Provider 05/30/20 07/19/20 Jaime Grover MD [address] [place] [address] Assigned Gastroenterology Provider 05/30/20 11/14/21 [place] [address] [place] [address] [phone] Assigned Pediatric Specialist Provider 05/30/20 09/07/20 Toni Sheth MD [address] [place] [address] Assigned Surgical Provider 05/30/20 04/18/21 Bertram Elizabeth MD [address] [address] Assigned PCP 07/27/20 04/25/21 Bonny Cooley MD [address] [address] Assigned PCP 04/26/21 08/15/21 Bertram Elizabeth MD [address] [address] Assigned PCP 08/16/21 10/24/21 Alex Johnson MD [address] [place] [address] Assigned Rheumatology Provider 10/18/21 04/15/23 Bonny Cooley MD [address] [address] Assigned PCP 10/25/21 04/02/22 Bertram Elizabeth MD [address] [address] Assigned PCP 04/03/22 07/23/22 Bertram Elizabeth MD [address] [address] Assigned PCP 10/02/22 04/29/23 Alex Johnson MD [address] [place] [address] Rheumatology 10/04/24 documented as of this encounter
--- OUTSIDE RECORDS SUMMARY | 2024-10-28 14:00 | XMS_ITS | Encounter Summary ---
Author Organization [place] Address [address] [place] [address]. [place] [address] Care Team Providers Care Childrens Club Attendant Name Role Phone Bettye Gonzales MD Unavailable + Antony Chakraborty MD Unavailable Mateo Cheema MD Unavailable [phone] Ermias Colón MD Unavailable Aminata Youssef MD Primary Care Provider [phone] Alex Johnson MD Unavailable Encounter Details Date Type Department Care Team (Late st Contact Info) Description 07/21/2023 [facility] [address] [address] Suly Merrill, RN Social History [...] Assigned at Female 08/28/2018 12:23 AM HR GENERALIST Legal Sex Female 4:46 AM HR GENERALIST Gender Identity Female 08/28/2018 12:23 AM HR GENERALIST Sexual Orientation Straight 10/11/2019 2: 51 PM HR GENERALIST documented as of this encounter Plan of Treatment Upcoming Encounters Date Type Department Care Team (Late st Contact Info) Description 04/25/2025 1:30 PM CDT Office Visit [facility] [address] [phone] Alex Johnson MD [address] [phone] documented as of this encounter Visit Diagnoses Not on filedocumented in this encounter Additional Health Concerns Assessment Noted Time PHQ-9 Depression Total Score: 11 020 2:18 PM CDT documented as of this encounter Care Teams Childrens Club Attendant Relationship Specialty Start Date End Date Aminata Youssef MD [facility] & [address] [address] PCP - General Internal Medicine 06/03/21 Bettye Gonzales MD Internal Medicine 04/10/15 Antony Chakraborty MD [address] [address] INTERNAL MEDICINE - ENDOCRINOLOGY, DIABETES & METABOLISM 11/13/15 Mateo Cheema MD [address] [address] Internal Medicine 08/06/16 Ermias Colón MD [address] [address] Referring Physician Neurology 09/23/16 Alex Johnson MD [address] [place] [address] 88 [place], [place] [address] Rheumatology 10/04/24 documented as of this encounter
--- OUTSIDE RECORDS SUMMARY | 2024-10-28 14:00 | XMS_ITS | Encounter Summary ---
Author Organization [place] Address [address] [place] [address] Care Team Providers Care Staff Assistant Name Role Phone Bettye Gonzales MD Unavailable + Bonny Cooley MD Primary Care Provider Antony Chakraborty MD Unavailable Mateo Cheema MD Unavailable [phone] Ermias Colón MD Unavailable Bonny Cooley MD Unavailable [phone] Pam Hernandez MD Unavailable [phone] Lázaro Horowitz MD Unavailable Jaime Grover MD Unavailable Toni Sheth MD Unavailable Toni Sheth MD Unavailable Bertram Elizabeth MD Unavailable Bonny Cooley MD Unavailable [phone] Aminata Youssef MD Primary Care Provider Bertram Elizabeth MD Unavailable Alex Johnson MD Unavailable Bonny Cooley MD Unavailable [phone] Bertram Elizabeth MD Unavailable Bertram Elizabeth MD Unavailable Alex Johnson MD Unavailable Reason for Visit * Reason Onset Date Comments Refill Request 12/02/2019 CELECOXIB 100MG CAPS Encounter Details Date Type Department Care Team (Late st Contact Info) Description 12/02/[address] [address] Bonny Cooley MD [address] [address] Refill Request (CELECOXIB 100MG CAPS ) Social [...] Sex Assigned at Female 08/28/2018 12:23 AM GRANTS SPECIALIST Legal Sex Female 4:46 AM GRANTS SPECIALIST Gender Identity Female 08/28/2018 12:23 AM GRANTS SPECIALIST Sexual Orientation Straight 10/11/2019 2: 51 PM GRANTS SPECIALIST COVID-19 Exposure Response Date Recorded In [...] CDT Telephone Visit with Pam Hernandez MD [facility] [address] [place] [phone] NSAID Medications Failed - 12/02/2019 4:45 PM [...] Description 04/25/2025 1:30 PM CDT Office Visit [facility] [place] 6525 [facility] 200 [place] [address] Alex Johnson MD 515 [facility] 88 [place], [place] [address] documented as of this encounter Visit Diagnoses Diagnosis Osteoarthritis, unspecified osteoarthritis type, unspecified site documented in this encounter Additional Health Concerns Infection Onset Date Last Indicated Resolved Time COVID-19 06/23/2020 06/23/2020 07/14/2020 11:4 0 PM GRANTS SPECIALIST Recovered COVID 07/08/2020 07/08/2020 09/21/2020 1 1:39 PM GRANTS SPECIALIST Assessment Noted Time PHQ-9 Depression Total Score: 15 020 2:41 PM GRANTS SPECIALIST documented as of this encounter Care Teams Staff Assistant Relationship Specialty Start Date End Date Bonny Cooley MD [address] [place] [address] PCP - General Family Practice 09/30/15 06/02/21 Aminata Youssef MD [facility] [address] [place] [address] PCP - General Internal Medicine 06/03/21 Bettye Gonzales MD Internal Medicine 04/10/15 Antony Chakraborty MD 420 [facility] [address] [place] [address] INTERNAL MEDICINE - ENDOCRINOLOGY, DIABETES & METABOLISM 11/13/15 Mateo Cheema MD [address] [address] Internal Medicine 08/06/16 Ermias Colón MD [address] [address] Referring Physician Neurology 09/23/16 Bonny Cooley MD [address] [phone] Assigned PCP 10/05/15 07/26/20 Pam Hernandez MD [address] [place] [address] [place] [address] Assigned Behavioral Health Provider 05/30/20 08/01/21 Lázaro Horowitz MD [facility] [address] [place] [address] Assigned Rheumatology Provider 05/30/20 07/19/20 Jaime Grover MD [address] [place] [address] Assigned Gastroenterology Provider 05/30/20 11/14/21 Toni Sheth MD [address] [place] [address] [phone] Assigned Pediatric Specialist Provider 05/30/20 09/07/20 Toni Sheth MD [address] [place] [address] [phone] Assigned Surgical Provider 05/30/20 04/18/21 Bertram Elizabeth MD 0 [facility] 200 [place] [address] Assigned PCP 07/27/20 04/25/21 Bonny Cooley MD [address] [address] Assigned PCP 04/26/21 08/15/21 Bertram Elizabeth MD [address] [address] Assigned PCP 08/16/21 10/24/21 Alex Johnson MD [address] [place] [address] Assigned Rheumatology Provider 10/18/21 04/15/23 Bonny Cooley MD [address] [address] Assigned PCP 10/25/21 04/02/22 Bertram Elizabeth MD [address] [address] Assigned PCP 04/03/22 07/23/22 Bertram Elizabeth MD [address] [address] Assigned PCP 10/02/22 04/29/23 Alex Johnson MD [address] [place] [address] Rheumatology 10/04/24 documented as of this encounter
--- OUTSIDE RECORDS SUMMARY | 2024-10-28 14:00 | XMS_ITS | Encounter Summary ---
Author Organization [facility] Address [address] [place] [address] Care Team Providers Care Safety Compliance Specialist Name Role Phone Bettye Gonzales MD Unavailable + Bonny Cooley MD Primary Care Provider Antony Chakraborty MD Unavailable Mateo Cheema MD Unavailable Ermias Colón MD Unavailable Suzanne Fernández RN Unavailable [phone] Bonny Cooley MD Unavailable [phone] Bonny Cooley MD Unavailable [phone] Pam Hernandez MD Unavailable [phone] Lázaro Horowitz MD Unavailable Jaime Grover MD Unavailable Toni Sheth MD Unavailable Toni Sheth MD Unavailable Bertram Elizabeth MD Unavailable Bonny Cooley MD Unavailable [phone] Aminata Youssef MD Primary Care Provider [phone] Bertram Elizabeth MD Unavailable [phone] Alex Johnson MD Unavailable [phone] Bonny Cooley MD Unavailable [phone] Bertram Elizabeth MD Unavailable [phone] Bertram Elizabeth MD Unavailable [phone] Alex Johnson MD Unavailable [phone] Reason for Visit * Reason Onset Date Comments cpap causing isusse 07/27/2017 Encounter Details Date Type Department Care Team (Late st Contact Info) Description 07/27/[address] [address] Nestor Vergara MD [address] [place] [address] cpap causing isusse Social History Tobacco Use Types Packs/Day Years Used Date Smoking Tobacco: Former Cigarettes 2 3 0 04/23/1976 - 12/17/1977 Smokeless Tobacco: Never Alcohol Use Standard Drinks/Week Comments No 0 (1 standard drink = 0.6 oz pur e alcohol) Comments No Sex and Gender Information Value Date Recorded Sex Assigned at Female 08/28/2018 12:23 AM EMBEDDED DEVELOPER Legal Sex Female 4:46 AM EMBEDDED DEVELOPER Gender Identity Female 08/28/2018 12:23 AM EMBEDDED DEVELOPER Sexual Orientation Straight 10/11/2019 2: 51 PM EMBEDDED DEVELOPER documented as of this encounter Miscellaneous Notes * Telephone Encounter - Isaias Preethi R - 07/27/2017 3:44 PM CST Patient been using cpap an thinks she got a cold from it. An wanted to let the provider know she isnot using the cpap anymore. Patient would a call back regarding when should she use or should she stop using it all together when she is sick. I transfer the patient to the [facility] as well. DDED DEVELOPER documented in this encounter Plan of Treatment Upcoming Encounters Date Type Department Care Team (Late st Contact Info) Description 04/25/2025 1:30 PM CDT Office Visit [facility] [address] [phone] Alex Johnson MD [address] [place] [address] documented as of this encounter Visit Diagnoses Not on filedocumented in this encounter Additional Health Concerns Infection Onset Date Last Indicated Resolved Time COVID-19 06/23/2020 06/23/2020 07/14/2020 11:4 0 PM EMBEDDED DEVELOPER Recovered COVID 07/08/2020 07/08/2020 09/21/2020 1 1:39 PM EMBEDDED DEVELOPER Assessment Noted Time PHQ-9 Depression Total Score: 17 017 1:13 PM CDT documented as of this encounter Care Teams Safety Compliance Specialist Relationship Specialty Start Date End Date Bonny Cooley MD [address] [place] [address] PCP - General Family Practice 09/30/15 06/02/21 Bonny Cooley MD [address] [address] PCP - Assigned PCP 10/05/15 10/10/18 Aminata Youssef MD [facility] [address] [place] [address] PCP - General Internal Medicine 06/03/21 Bettye Gonzales MD Internal Medicine 04/10/15 Antony Chakraborty MD [address] [id number] INTERNAL MEDICINE - ENDOCRINOLOGY, DIABETES & METABOLISM 11/13/15 Mateo Cheema MD [address] 929[address] Internal Medicine 08/06/16 Ermias Colón MD [address] [address] Referring Physician Neurology 09/23/16 Suzanne Fernández RN Clinic Visual Merchandising Director Primary Care - CC 02/28/18 Bonny Cooley MD [address] [id number] Assigned PCP 10/05/15 07/26/20 Pam Hernandez MD [address] [place] [address] [place] [address] Assigned Behavioral Health Provider 05/30/20 08/01/21 Lázaro Horowitz MD [facility] [address] [place], [place] [address] Assigned Rheumatology Provider 05/30/20 07/19/20 Jaime Grover MD [address] [place] [address] Assigned Gastroenterology Provider 05/30/20 11/14/21 Toni Sheth MD [address] [place] [address] Assigned Pediatric Specialist Provider 05/30/20 09/07/20 Toni Sheth MD [address] [place] [address] Assigned Surgical Provider 05/30/20 04/18/21 Bertram Elizabeth MD [address] [address] Assigned PCP 07/27/20 04/25/21 Bonny Cooley MD [address] [address] Assigned PCP 04/26/21 08/15/21 Bertram Elizabeth MD [address] [address] Assigned PCP 08/16/21 10/24/21 Alex Johnson MD [address] [place] [address] Assigned Rheumatology Provider 10/18/21 04/15/23 Bonny Cooley MD [address] [address] Assigned PCP 10/25/21 04/02/22 Bertram Elizabeth MD [address] [address] Assigned PCP 04/03/22 07/23/22 Bertram Elizabeth MD [address] [address] Assigned PCP 10/02/22 04/29/23 Alex Johnson MD [address] [place] [address] Rheumatology 10/04/24 documented as of this encounter
--- OUTSIDE RECORDS SUMMARY | 2024-10-28 14:00 | XMS_ITS | Encounter Summary ---
Author Organization [facility] Address [address] [place] [address] Care Team Providers Care Souvenir And Novelty Maker Name Role Phone Bettye Gonzales MD Unavailable + Bonny Cooley MD Primary Care Provider Antony Chakraborty MD Unavailable Mateo Cheema MD Unavailable [phone] Ermias Colón MD Unavailable Bonny Cooley MD Unavailable [phone] Pam Hernandez MD Unavailable [phone] Lázaro Horowitz MD Unavailable Jaime Grover MD Unavailable [phone] Toni Sheth MD Unavailable Toni Sheth MD Unavailable Bertram Elizabeth MD Unavailable Bonny Cooley MD Unavailable [phone] Aminata Youssef MD Primary Care Provider [phone] Bertram Elizabeth MD Unavailable Alex Johnson MD Unavailable [phone] Bonny Cooley MD Unavailable [phone] Bertram Elizabeth MD Unavailable Bertram Elizabeth MD Unavailable Alex Johnson MD Unavailable Reason for Visit * Reason Onset Date Comments Appointment 07/26/2019 Encounter Details Date Type Department Care Team (Late st Contact Info) Description 07/26/[address] [address] Bonny Cooley MD [address] [address] Appointment Social History Tobacco Use Types Packs/Day Years Used Date Smoking Tobacco: Former Cigarettes 2 3 0 04/23/1976 - 12/17/1977 Smokeless Tobacco: Never Alcohol Use Standard Drinks/Week Comments No 0 (1 standard drink = 0.6 oz pur e alcohol) PHQ-2 Answer Date Recorded PHQ-2 Score 5 07/24/2019 Comments No Sex and Gender Information Value Date Recorded Sex Assigned at Female 08/28/2018 12:23 AM NEONATAL INTENSIVE CARE UNIT NURSE Legal Sex Female 4:46 AM NEONATAL INTENSIVE CARE UNIT NURSE Gender Identity Female 08/28/2018 12:23 AM NEONATAL INTENSIVE CARE UNIT NURSE Sexual Orientation Straight 10/11/2019 2: 51 PM NEONATAL INTENSIVE CARE UNIT NURSE documented as of this encounter Miscellaneous Notes * Telephone Encounter - Marcus Rothman - 07/26/2019 2:48 PM CST We did not reach Heidi Miller, we left a message with our contact number [phone]. If we donot hear from them within the next 3 business days we will mail a letter offering our scheduling services. If they do call to schedule, in the future, we will inform you of the outcome. Thank you for your referral, [facility] Outpatient Intake ATAL INTENSIVE CARE UNIT NURSE documented in this encounter Plan of Treatment Upcoming Encounters Date Type Department Care Team (Late st Contact Info) Description 04/25/2025 1:30 PM CDT Office Visit [facility] [address] [facility] [address] [place] [phone] Alex Johnson MD [address] [place] [address] [address] [place], [place] 1665[address] documented as of this encounter Visit Diagnoses Not on filedocumented in this encounter Additional Health Concerns Infection Onset Date Last Indicated Resolved Time COVID-19 06/23/2020 06/23/2020 07/14/2020 11:4 0 PM NEONATAL INTENSIVE CARE UNIT NURSE Recovered COVID 07/08/2020 07/08/2020 09/21/2020 1 1:39 PM NEONATAL INTENSIVE CARE UNIT NURSE Assessment Noted Time PHQ-9 Depression Total Score: 16 019 2:39 PM NEONATAL INTENSIVE CARE UNIT NURSE documented as of this encounter Care Teams Souvenir And Novelty Maker Relationship Specialty Start Date End Date Bonny Cooley MD [address] [place] [address] PCP - General Family Practice 09/30/15 06/02/21 Aminata Youssef MD [facility] [address] [place] [address] PCP - General Internal Medicine 06/03/21 Bettye Gonzales MD Internal Medicine 04/10/15 Antony Chakraborty MD [address] [place] [address] [address] [place] [address] INTERNAL MEDICINE - ENDOCRINOLOGY, DIABETES & METABOLISM 11/13/15 Mateo Cheema MD [address] [address] Internal Medicine 08/06/16 Ermias Colón MD 420 [facility] [address] [place] [address] Referring Physician Neurology 09/23/16 Bonny Cooley MD [address] [address] Assigned PCP 10/05/15 07/26/20 Pam Hernandez MD [address] [place] [address] [place] [address] Assigned Behavioral Health Provider 05/30/20 08/01/21 Lázaro Horowitz MD [address] [id number] Assigned Rheumatology Provider 05/30/20 07/19/20 Jaime Grover MD [address] [place] [address] Assigned Gastroenterology Provider 05/30/20 11/14/21 Toni Sheth MD [address] [place] [address] [id number] Assigned Pediatric Specialist Provider 05/30/20 09/07/20 Toni Sheth MD [address] [place] [address] [id number] Assigned Surgical Provider 05/30/20 04/18/21 Bertram Elizabeth MD 0 [facility] 200 [place] [address] Assigned PCP 07/27/20 04/25/21 Bonny Cooley MD 0 [facility] [address] [place] [address] Assigned PCP 04/26/21 08/15/21 Bertram Elizabeth MD 0 [facility] [address] [place] [address] Assigned PCP 08/16/21 10/24/21 Alex Johnson MD [address] [place] [address] Assigned Rheumatology Provider 10/18/21 04/15/23 Bonny Cooley MD [address] [place] [address] Assigned PCP 10/25/21 04/02/22 Bertram Elizabeth MD [address] [address] Assigned PCP 04/03/22 07/23/22 Bertram Elizabeth MD [address] [place] [address] Assigned PCP 10/02/22 04/29/23 Alex Johnson MD [address] [place] [address] Rheumatology 10/04/24 documented as of this encounter
--- OUTSIDE RECORDS SUMMARY | 2024-10-28 14:00 | XMS_ITS | Encounter Summary ---
Author Organization [facility] Address [address] [place] [address] Care Team Providers Care Director Name Role Phone Bettye Gonzales MD Unavailable + Bonny Cooley MD Primary Care Provider Antony Chakraborty MD Unavailable Mateo Cheema MD Unavailable [phone] Ermias Colón MD Unavailable Bonny Cooley MD Unavailable [phone] Pam Hernandez MD Unavailable [phone] Lázaro Horowitz MD Unavailable Jaime Grover MD Unavailable Toni Sheth MD Unavailable Toni Sheth MD Unavailable Bertram Elizabeth MD Unavailable [phone] Bonny Cooley MD Unavailable [phone] Aminata Youssef MD Primary Care Provider Bertram Elizabeth MD Unavailable Alex Johnson MD Unavailable Bonny Cooley MD Unavailable Bertram Elizabeth MD Unavailable [phone] Bertram Elizabeth MD Unavailable [phone] Alex Johnson MD Unavailable [phone] Encounter Details Date Type Department Care Team (Late st Contact Info) Description 06/02/2020 MyC Medical Advice [facility] [address] [address] Jaime Grover MD [address] [place] [address] Social History Tobacco Use Types Packs/Day Years Used Date Smoking Tobacco: Former Cigarettes 2 3 0 04/23/1976 - 12/17/1977 Smokeless Tobacco: Never Alcohol Use Standard Drinks/Week Comments No 0 (1 standard drink = 0.6 oz pur e alcohol) PHQ-2 Answer Date Recorded PHQ-2 Score 4 01/31/2020 Comments No Sex and Gender Information Value Date Recorded Sex Assigned at Female 08/28/2018 12:23 AM TALENT RECRUITER Legal Sex Female 4:46 AM TALENT RECRUITER Gender Identity Female 08/28/2018 12:23 AM TALENT RECRUITER Sexual Orientation Straight 10/11/2019 2: 51 PM TALENT RECRUITER COVID-19 Exposure Response Date Recorded In the last month, have you been in contact with someone who was confirmed or suspected to have Coronavirus / COVID-19? No / Unsure 06/04/2020 2:17 PM CDT documented as of this encounter Plan of Treatment Upcoming Encounters Date Type Department Care Team (Late Contact Info) Description 04/25/2025 1:30 PM CDT Office Visit [facility] [address] [phone] Alex Johnson MD [address] [place] [address] documented as of this encounter Visit Diagnoses Not on filedocumented in this encounter Additional Health Concerns Infection Onset Date Last Indicated Resolved Time COVID-19 06/23/2020 06/23/2020 07/14/2020 11:4 0 PM TALENT RECRUITER Recovered COVID 07/08/2020 07/08/2020 09/21/2020 1 1:39 PM TALENT RECRUITER Assessment Noted Time PHQ-9 Depression Total Score: 11 020 2:18 PM CDT documented as of this encounter Care Teams Director Relationship Specialty Start Date End Date Bonny Cooley MD [address] [place] [address] PCP - General Family Practice 09/30/15 06/02/[address] [facility] & [address] [address] PCP - General Internal Medicine 06/03/21 Bettye Gonzales MD MD Internal Medicine 04/10/15 Antony Chakraborty MD [address] [address] INTERNAL MEDICINE - ENDOCRINOLOGY, DIABETES & METABOLISM 11/13/15 Mateo Cheema MD 420 [facility] [address] [address] Internal Medicine 08/06/16 Ermias Colón MD 420 [facility] [address] [address] Referring Physician Neurology 09/23/16 Bonny Cooley MD [address] [address] Assigned PCP 10/05/15 07/26/20 Pam Hernandez MD [address] [place] [address] [place] [address] Assigned Behavioral Health Provider 05/30/20 08/01/21 Lázaro Horowitz MD [facility] [address] [place] [address] Assigned Rheumatology Provider 05/30/20 07/19/20 Jaime Grover MD [address] [place] [address] Assigned Gastroenterology Provider 05/30/20 11/14/21 [place] [address] [place] [id number] Assigned Pediatric Specialist Provider 05/30/20 09/07/20 Toni Sheth MD [address] [place] [address] Assigned Surgical Provider 05/30/20 04/18/21 Bertram Elizabeth MD [address] [address] Assigned PCP 07/27/20 04/25/21 Bonny Cooley MD [address] [address] Assigned PCP 04/26/21 08/15/21 Bertram Elizabeth MD [address] [address] Assigned PCP 08/16/21 10/24/21 Aelx Johnson MD [address] [place] [address] Assigned Rheumatology Provider 10/18/21 04/15/23 Bonny Cooley MD [address] [address] Assigned PCP 10/25/21 04/02/22 Bertram Elizabeth MD [address] [address] Assigned PCP 04/03/22 07/23/22 Bertram Elizabeth MD [address] [address] Assigned PCP 10/02/22 04/29/23 Alex Johnson MD [address] [place] [address] Rheumatology 10/04/24 documented as of this encounter
--- OUTSIDE RECORDS SUMMARY | 2024-10-28 14:00 | XMS_ITS | Encounter Summary ---
Author Organization [facility] Address [address] [place] [address] Care Team Providers Care Automation Clerk Name Role Phone Bettye Gonzales MD Unavailable + Bonny Cooley MD Primary Care Provider Antony Chakraborty MD Unavailable Mateo Cheema MD Unavailable Ermias Colón MD Unavailable Bonny Cooley MD Unavailable [phone] Bonny Cooley MD Unavailable [phone] Pam Hernandez MD Unavailable [phone] Lázaro Horowitz MD Unavailable Jaime Grover MD Unavailable Toni Sheth MD Unavailable Toni Sheth MD Unavailable Bertram Elizabeth MD Unavailable Bonny Cooley MD Unavailable [phone] Aminata Youssef MD Primary Care Provider Bertram Elizabeth MD Unavailable [phone] Alex Johnson MD Unavailable Bonny Cooley MD Unavailable [phone] Bertram Elizabeth MD Unavailable [phone] Bertram Elizabeth MD Unavailable [phone] Alex Johnson MD Unavailable Encounter Details Date Type Department Care Team (Late st Contact Info) Description 06/30/2018 MyC Medical Advice [address] [address] Noe Camarena RN Social History Tobacco Use Types Packs/Day Years Used Date Smoking Tobacco: Former Cigarettes 2 3 0 04/23/1976 - 12/17/1977 Smokeless Tobacco: Never Alcohol Use Standard Drinks/Week Comments No 0 (1 standard drink = 0.6 oz pur e alcohol) Comments No Sex and Gender Information Value Date Recorded Sex Assigned at Female 08/28/2018 12:23 AM BI MANAGER Legal Sex Female 4:46 AM BI MANAGER Gender Identity Female 08/28/2018 12:23 AM BI MANAGER Sexual Orientation Straight 10/11/2019 2: 51 PM BI MANAGER documented as of this encounter Plan of Treatment Upcoming Encounters Date Type Department Care Team (Late st Contact Info) Description 04/25/2025 1:30 PM CDT Office Visit [facility] [address] [phone] Alex Johnson MD [address] [place] [address] documented as of this encounter Visit Diagnoses Not on filedocumented in this encounter Additional Health Concerns Infection Onset Date Last Indicated Resolved Time COVID-19 06/23/2020 06/23/2020 07/14/2020 11:4 0 PM BI MANAGER Recovered COVID 07/08/2020 07/08/2020 09/21/2020 1 1:39 PM BI MANAGER Assessment Noted Time PHQ-9 Depression Total Score: 13 018 7:20 AM BI MANAGER documented as of this encounter Care Teams Automation Clerk Relationship Specialty Start Date End Date Bonny Cooley MD [address] [place] [address] PCP - General Family Practice 09/30/15 06/02/21 Bonny Cooley MD [address] [address] PCP - Assigned PCP 10/05/15 10/10/18 Aminata Youssef MD [facility] [address] [place] [address] PCP - General Internal Medicine 06/03/21 Bettye Gonzales MD MD Internal Medicine 04/10/15 Antony Chakraborty MD 420 [facility] [address] [phone] INTERNAL MEDICINE - ENDOCRINOLOGY, DIABETES & METABOLISM 11/13/15 Mateo Cheema MD [address] [place] [address] 775025 Internal Medicine 08/06/16 Ermias Colón MD 420 [facility] [address] 6[address] Referring Physician Neurology 09/23/16 Bonny Cooley MD [address] [address] Assigned PCP 10/05/15 07/26/20 Pam Hernandez MD [address] [place] [address] [place] [address] Assigned Behavioral Health Provider 05/30/20 08/01/21 Lázaro Horowitz MD [place] [address] [place] [address] Assigned Rheumatology Provider 05/30/20 07/19/20 Jaime Grover MD [address] [place] [address] Assigned Gastroenterology Provider 05/30/20 11/14/21 Toni Sheth MD [address] [place] [address] [phone] Assigned Pediatric Specialist Provider 05/30/20 09/07/20 Toni Sheth MD [address] [place] [address] Assigned Surgical Provider 05/30/20 04/18/21 Bertram Elizabeth MD [address] [address] Assigned PCP 07/27/20 04/25/21 Bonny Cooley MD [address] [address] Assigned PCP 04/26/21 08/15/21 Bertram Elizabeth MD [address] [address] Assigned PCP 08/16/21 10/24/21 Alex Johnson MD [address] [place] [address] Assigned Rheumatology Provider 10/18/21 04/15/23 Bonny Cooley MD [address] [address] Assigned PCP 10/25/21 04/02/22 Bertram Elizabeth MD [address] [address] Assigned PCP 04/03/22 07/23/22 Bertram Elizabeth MD [address] [address] Assigned PCP 10/02/22 04/29/23 Alex Johnson MD [address] [place] [address] Rheumatology 10/04/24 documented as of this encounter
--- OUTSIDE RECORDS SUMMARY | 2024-10-28 14:00 | XMS_ITS | Encounter Summary ---
Author Organization [place] Address [address] [place] [address] Care Team Providers Care Drafter Heating And Ventilating Name Role Phone Bettye Gonzales MD Unavailable + Bonny Cooley MD Primary Care Provider Antony Chakraborty MD Unavailable [phone] Mateo Cheema MD Unavailable Ermias Colón MD Unavailable Bonny Cooley MD Unavailable [phone] Bonny Cooley MD Unavailable [phone] Pam Hernandez MD Unavailable [phone] Lázaro Horowitz MD Unavailable Jaime Grover MD Unavailable Toni Sheth MD Unavailable Toni Sheth MD Unavailable Bertram Elizabeth MD Unavailable Bonny Cooley MD Unavailable [phone] Aminata Youssef MD Primary Care Provider [phone] Bertram Elizabeth MD Unavailable [phone] Alex Johnson MD Unavailable Bonny Cooley MD Unavailable [phone] Bertram Elizabeth MD Unavailable [phone] Bertram Elizabeth MD Unavailable [phone] Alex Johnson MD Unavailable [phone] Encounter Details Date Type Department Care Team (Late st Contact Info) Description 08/07/2018 MyC Medical Advice [address] [address] [facility] Social History Tobacco Use Types Packs/Day Years Used Date Smoking Tobacco: Former Cigarettes 2 3 0 04/23/1976 - 12/17/1977 Smokeless Tobacco: Never Alcohol Use Standard Drinks/Week Comments No 0 (1 standard drink = 0.6 oz pur e alcohol) Comments No Sex and Gender Information Value Date Recorded Sex Assigned at Female 08/28/2018 12:23 AM RIVET THROWER Legal Sex Female 4:46 AM RIVET THROWER Gender Identity Female 08/28/2018 12:23 AM RIVET THROWER Sexual Orientation Straight 10/11/2019 2: 51 PM RIVET THROWER documented as of this encounter Plan of Treatment Upcoming Encounters Date Type Department Care Team (Late st Contact Info) Description 04/25/2025 1:30 PM CDT Office Visit [facility] [address] [address] Alex Johnson MD [address] [place] [address] documented as of this encounter Visit Diagnoses Not on filedocumented in this encounter Additional Health Concerns Infection Onset Date Last Indicated Resolved Time COVID-19 06/23/2020 06/23/2020 07/14/2020 11:4 0 PM RIVET THROWER Recovered COVID 07/08/2020 07/08/2020 09/21/2020 1 1:39 PM RIVET THROWER Assessment Noted Time PHQ-9 Depression Total Score: 13 018 7:20 AM RIVET THROWER documented as of this encounter Care Teams Drafter Heating And Ventilating Relationship Specialty Start Date End Date Bonny Cooley MD [address] [place] [address] PCP - General Family Practice 09/30/15 06/02/21 Bonny Cooley MD [address] [phone] PCP - Assigned PCP 10/05/15 10/10/18 Aminata Youssef MD [facility] & [address] [address] PCP - General Internal Medicine 06/03/21 Bettye Gonzales MD Internal Medicine 04/10/15 Antony Chakraborty MD [address] 155035 INTERNAL MEDICINE - ENDOCRINOLOGY, DIABETES & METABOLISM 11/13/15 Mateo Cheema MD [address] [id number] Internal Medicine 08/06/16 Ermias Colón MD [address] 955985 Referring Physician Neurology 09/23/16 Bonny Cooley MD [address] [address] Assigned PCP 10/05/15 07/26/20 Pam Hernandez MD [address] [place] [address] [place] [address] Assigned Behavioral Health Provider 05/30/20 08/01/21 Lázaro Horowitz MD [place] [address] [place] [address] Assigned Rheumatology Provider 05/30/20 07/19/20 Jaime Grover MD [address] [place] [address] Assigned Gastroenterology Provider 05/30/20 11/14/21 Toni Sheth MD [address] [place] [address] [id number] Assigned Pediatric Specialist Provider 05/30/20 09/07/20 Toni Sheth MD [address] [place] [address] [id number] Assigned Surgical Provider 05/30/20 04/18/21 Bertram Elizabeth MD [address] [address] Assigned PCP 07/27/20 04/25/21 Bonny Cooley MD [address] [address] Assigned PCP 04/26/21 08/15/21 Bertram Elizabeth MD [address] [address] Assigned PCP 08/16/21 10/24/21 Alex Johnson MD [address] [place] [address] Assigned Rheumatology Provider 10/18/21 04/15/23 Bonny Cooley MD [address] [address] Assigned PCP 10/25/21 04/02/22 Bertram Elizabeth MD [address] [address] Assigned PCP 04/03/22 07/23/22 Bertram Elizabeth MD [address] [address] Assigned PCP 10/02/22 04/29/23 Alex Johnson MD [address] [place] [address] Rheumatology 10/04/24 documented as of this encounter
--- OUTSIDE RECORDS SUMMARY | 2024-10-28 14:00 | XMS_ITS | Encounter Summary ---
Author Organization [place] Address [address] [place] [address] Care Team Providers Care Polymer Chemist Name Role Phone Bettye Gonzales MD Unavailable + Bonny Cooley MD Primary Care Provider [phone] Antony Chakraborty MD Unavailable Mateo Cheema MD Unavailable Ermias Colón MD Unavailable Bonny Cooley MD Unavailable [phone] Pam Hernandez MD Unavailable [phone] Lázaro Horowitz MD Unavailable Jaime Grover MD Unavailable Toni Sheth MD Unavailable Toni Sheth MD Unavailable Bertram Elizabeth MD Unavailable Bonny Cooley MD Unavailable [phone] Aminata Youssef MD Primary Care Provider Bertram Elizabeth MD Unavailable Alex Johnson MD Unavailable Bonny Cooley MD Unavailable [phone] Bertram Elizabeth MD Unavailable [phone] Bertram Elizabeth MD Unavailable [phone] Alex Johnson MD Unavailable Encounter Details Date Type Department Care Team (Late st Contact Info) Description 08/27/2019 MyC Medical Advice [facility] [address] [address] Toni Del Angel MD [facility] [address] [facility] [address] [place] [address] Social History Tobacco Use Types [...] Sex Assigned at Female 08/28/2018 12:23 AM LAND PLANNER Legal Sex Female 4:46 AM LAND PLANNER Gender Identity Female 08/28/2018 12:23 AM LAND PLANNER Sexual Orientation Straight 10/11/2019 2: 51 PM LAND PLANNER documented as of this encounter Plan of Treatment Upcoming Encounters Date Type Department Care Team (Late st Contact Info) Description 04/25/2025 1:30 PM CDT Office Visit [facility] [address] [address] Alex Johnson MD [address] [place] [address] documented as of this encounter Visit Diagnoses Not on filedocumented in this encounter Additional Health Concerns Infection Onset Date Last Indicated Resolved Time COVID-19 06/23/2020 06/23/2020 07/14/2020 11:4 0 PM LAND PLANNER Recovered COVID 07/08/2020 07/08/2020 09/21/2020 1 1:39 PM LAND PLANNER Assessment Noted Time PHQ-9 Depression Total Score: 16 07/24/2 019 2:39 PM LAND PLANNER documented as of this encounter Care Teams Polymer Chemist Relationship Specialty Start Date End Date Bonny Cooley MD [address] [place] [address] PCP - General Family Practice 09/30/15 06/02/21 Aminata Youssef MD [facility] & [facility] [address] [place] [address] PCP - General Internal Medicine 06/03/21 Bettye Gonzales MD MD Internal Medicine 04/10/15 Antony Chakraborty MD [address] [address] INTERNAL MEDICINE - ENDOCRINOLOGY, DIABETES & METABOLISM 11/13/15 Mateo Cheema MD [address] [address] Internal Medicine 08/06/16 Ermias Colón MD [address] 800805 Referring Physician Neurology 09/23/16 [place] [address] [place] [address] Assigned PCP 10/05/15 07/26/20 Pam Hernandez MD [address] [place] [address] [place] [address] Assigned Behavioral Health Provider 05/30/20 08/01/21 Lázaro Horowitz MD [facility] [address] [place] [address] Assigned Rheumatology Provider 05/30/20 07/19/20 Jaime Grover MD [address] [place] [address] Assigned Gastroenterology Provider 05/30/20 11/14/21 Toni Sheth MD [address] [place] [address] Assigned Pediatric Specialist Provider 05/30/20 09/07/20 Toni Sheth MD [address] [place] [address] Assigned Surgical Provider 05/30/20 04/18/21 Bertram Elizabeth MD [address] [place] [address] Assigned PCP 07/27/20 04/25/21 Bonny Cooley MD [address] [place] [address] Assigned PCP 04/26/21 08/15/21 Bertram Elizabeth MD [address] [place] [address] [place] [address] Assigned PCP 08/16/21 10/24/21 Alex Johnson MD [address] [place] [address] Assigned Rheumatology Provider 10/18/21 04/15/23 Bonny Cooley MD [address] [address] Assigned PCP 10/25/21 04/02/22 Bertram Elizabeth MD [address] [address] Assigned PCP 04/03/22 07/23/22 Bertram Elizabeth MD [address] [address] Assigned PCP 10/02/22 04/29/23 Alex Johnson MD [address] [place] [address] Rheumatology 10/04/24 documented as of this encounter
--- OUTSIDE RECORDS SUMMARY | 2024-10-28 14:00 | XMS_ITS | Encounter Summary ---
Author Organization [place] Address [address] [place] [address] Care Team Providers Care Panel Edge Painter Name Role Phone Bettye Gonzales MD Unavailable + Bonny Cooley MD Primary Care Provider [phone] Antony Chakraborty MD Unavailable [phone] Mateo Cheema MD Unavailable Ermias Colón MD Unavailable Suzanne Fernández RN Unavailable [phone] Bonny Cooley MD Unavailable [phone] Bonny Cooley MD Unavailable [phone] Pam Hernandez MD Unavailable [phone] Lázaro Horowitz MD Unavailable Jaime Grover MD Unavailable Toni Sheth MD Unavailable Toni Sheth MD Unavailable Bertram Elizabeth MD Unavailable [phone] Bonny Cooley MD Unavailable [phone] Aminata Youssef MD Primary Care Provider [phone] Bertram Elizabeth MD Unavailable Alex Johnson MD Unavailable Bonny Cooley MD Unavailable [phone] Bertram Elizabeth MD Unavailable [phone] Bertram Elizabeth MD Unavailable [phone] Alex Johnson MD Unavailable [phone] Reason for Visit * Reason Onset Date Comments Hand Pain 01/03/2017 Edema 01/03/2017 Encounter Details Date Type Department Care Team (Late st Contact Info) Description 01/03/2017 MyC Medical Advice [address] [address] Bonny Cooley MD [address] [address] Hand Pain; Edema Social History Tobacco Use Types Packs/Day Years Used Date Smoking Tobacco: Never Smokeless Tobacco: Never Alcohol Use Standard Drinks/Week Comments No 0 (1 standard drink = 0.6 oz pur e alcohol) Comments No Sex and Gender Information Value Date Recorded Sex Assigned at Female 08/28/2018 12:23 AM REGULATOR TESTER Legal Sex Female 4:46 AM REGULATOR TESTER Gender Identity Female 08/28/2018 12:23 AM REGULATOR TESTER Sexual Orientation Straight 10/11/2019 2: 51 PM REGULATOR TESTER documented as of this encounter Miscellaneous Notes [...] normal. DM * Telephone Encounter - Katlin Germain RN - 01/04/2017 7:[address] Cooley-Please review. Would another office visit be recommended for evaluation? Technology Applications Teacher also pended rheumatology referral. Thank you! MARY KATE Johnson, RN documented in this encounter Plan of Treatment Upcoming Encounters Date Type Department Care Team (Late st Contact Info) Description 04/25/2025 1:30 PM CDT Office Visit [facility] [address] [address] Alex Johnson MD [address] [place] [id number] documented as of this encounter Results * [...] COVID-19 06/23/2020 06/23/2020 07/14/2020 11:4 0 PM REGULATOR TESTER Recovered COVID 07/08/2020 07/08/2020 09/21/2020 1 1:39 PM REGULATOR TESTER Assessment Noted Time PHQ-9 Depression Total Score: 6 09/22/19 17 7:27 AM REGULATOR TESTER documented as of this encounter Care Teams Panel Edge Painter Relationship Specialty Start Date End Date Bonny Cooley MD [address] [place] [address] PCP - General Family Practice 09/30/15 06/02/21 Bonny Cooley MD [address] [address] PCP - Assigned PCP 10/05/15 10/10/18 Aminata Youssef MD [facility] & [address] [address] PCP - General Internal Medicine 06/03/21 Bettye Gonzales MD MD Internal Medicine 04/10/15 Antony Chakraborty MD [address] [phone] INTERNAL MEDICINE - ENDOCRINOLOGY, DIABETES & METABOLISM 11/13/15 Mateo Cheema MD [address] [phone] Internal Medicine 08/06/16 Ermias Colón MD [address] [address] Referring Physician Neurology 09/23/16 Suzanne Fernández, RN Clinic Senior Planning Manager Primary Care - CC 02/28/18 Bonny Cooley MD [address] [address] Assigned PCP 10/05/15 07/26/20 Pam Hernandez MD [address] [place] [address] [place] [address] Assigned Behavioral Health Provider 05/30/20 08/01/21 Lázaro Horowitz MD [address] [address] Assigned Rheumatology Provider 05/30/20 07/19/20 Jaime Grover MD [address] [place] [address] Assigned Gastroenterology Provider 05/30/20 11/14/21 Toni Sheth MD [address] [place] [address] [id number] Assigned Pediatric Specialist Provider 05/30/20 09/07/20 Toni Sheth MD [address] [place] [address] Assigned Surgical Provider 05/30/20 04/18/21 Bertram Elizabeth MD [address] [place] [address] Assigned PCP 07/27/20 04/25/21 Bonny Cooley MD [address] [place] [address] Assigned PCP 04/26/21 08/15/21 Bertram Elizabeth MD 0 [facility] [address] [place] [address] Assigned PCP 08/16/21 10/24/21 Alex Johnson MD [address] [place] [address] Assigned Rheumatology Provider 10/18/21 04/15/23 Bonny Cooley MD [address] [place] [address] Assigned PCP 10/25/21 04/02/22 Bertram Elizabeth MD [address] [place] [address] Assigned PCP 04/03/22 07/23/22 Bertram Elizabeth MD [address] [place] [address] Assigned PCP 10/02/22 04/29/23 Alex Johnson MD [address] [place] [address] Rheumatology 10/04/24 documented as of this encounter
--- OUTSIDE RECORDS SUMMARY | 2024-10-28 14:00 | XMS_ITS | Encounter Summary ---
Author Organization [place] Address [address] [place] [address] Care Team Providers Care Anthropologist Name Role Phone Bettye Gonzales MD Unavailable + Bonny Cooley MD Primary Care Provider Antony Chakraborty MD Unavailable Mateo Cheema MD Unavailable Ermias Colón MD Unavailable Suzanne Fernández RN Unavailable [phone] Bonny Cooley MD Unavailable [phone] Bonny Cooley MD Unavailable [phone] Pam Hernandez MD Unavailable [phone] Lázaro Horowitz MD Unavailable Jaime Grover MD Unavailable Toni Sheth MD Unavailable Toni Sheth MD Unavailable Bertram Elizabeth MD Unavailable Bonny Cooley MD Unavailable [phone] Aminata Youssef MD Primary Care Provider [phone] Bertram Elizabeth MD Unavailable [phone] Alex Johnson MD Unavailable Bonny Cooley MD Unavailable [phone] Bertram Elizabeth MD Unavailable [phone] Bertram Elizabeth MD Unavailable [phone] Alex Johnson MD Unavailable Encounter Details Date Type Department Care Team (Late st Contact Info) Description 12/15/2016 MyC Medical Advice [facility] Endocrinology [address] [facility] 3rd [place] [address] Mateo Cheema MD [address] [address] Social History Tobacco Use Types Packs/Day Years Used Date Smoking Tobacco: Never Smokeless Tobacco: Never Alcohol Use Standard Drinks/Week Comments No 0 (1 standard drink = 0.6 oz pur e alcohol) Comments No Sex and Gender Information Value Date Recorded Sex Assigned at Female 08/28/2018 12:23 AM INSPECTOR HOT FORGINGS Legal Sex Female 4:46 AM INSPECTOR HOT FORGINGS Gender Identity Female 08/28/2018 12:23 AM INSPECTOR HOT FORGINGS Sexual Orientation Straight 10/11/2019 2: 51 PM INSPECTOR HOT FORGINGS documented as of this encounter Plan of Treatment Upcoming Encounters Date Type Department Care Team (Late st Contact Info) Description 04/25/2025 1:30 PM CDT Office Visit [facility] [address] [address] Alex Johnson MD [address] [place] [address] 88 [place] [address] documented as of this encounter Visit Diagnoses Not on filedocumented in this encounter Additional Health Concerns Infection Onset Date Last Indicated Resolved Time COVID-19 06/23/2020 06/23/2020 07/14/2020 11:4 0 PM INSPECTOR HOT FORGINGS Recovered COVID 07/08/2020 07/08/2020 09/21/2020 1 1:39 PM INSPECTOR HOT FORGINGS Assessment Noted Time PHQ-9 Depression Total Score: 6 09/22/19 17 7:27 AM INSPECTOR HOT FORGINGS documented as of this encounter Care Teams Anthropologist Relationship Specialty Start Date End Date Bonny Cooley MD [address] [place] [address] PCP - General Family Practice 09/30/15 06/02/21 Bonny Cooley MD [address] [address] PCP - Assigned PCP 10/05/15 10/10/18 Aminata Youssef MD [facility] & [address] [address] PCP - General Internal Medicine 06/03/21 Bettye Gonzales MD Internal Medicine 04/10/15 Antony Chakraborty MD [address] [address] INTERNAL MEDICINE - ENDOCRINOLOGY, DIABETES & METABOLISM 11/13/15 Mateo Cheema MD [address] [address] Internal Medicine 08/06/16 Ermias Colón MD [address] [address] Referring Physician Neurology 09/23/16 Suzanne Fernández, RN Clinic [facility] Primary Care - CC 02/28/18 Bonny Cooley MD 2[address] [facility] 200 [place] [address] Assigned PCP 10/05/15 07/26/20 Pam Hernandez MD [address] [place] [address] [place] [address] Assigned Behavioral Health Provider 05/30/20 08/01/21 Lázaro Horowitz MD [place] [address] [place] [address] Assigned Rheumatology Provider 05/30/20 07/19/20 Jaime Grover MD [address] [place] [address] Assigned Gastroenterology Provider 05/30/20 11/14/21 Toni Sheth MD [address] [place] [address] Assigned Pediatric Specialist Provider 05/30/20 09/07/20 Toni Sheth MD [address] [place] [address] Assigned Surgical Provider 05/30/20 04/18/21 Bertram Elizabeth MD 2270 [facility] 200 [place] [address] Assigned PCP 07/27/20 04/25/21 Bonny Cooley MD [address] [address] Assigned PCP 04/26/21 08/15/21 Bertram Elizabeth MD [address] [address] Assigned PCP 08/16/21 10/24/21 Alex Johnson MD [address] [place] [address] Assigned Rheumatology Provider 10/18/21 04/15/23 Bonny Cooley MD [address] [address] Assigned PCP 10/25/21 04/02/22 Bertram Elizabeth MD [address] [address] Assigned PCP 04/03/22 07/23/22 Bertram Elizabeth MD [address] [address] Assigned PCP 10/02/22 04/29/23 Alex Johnson MD [address] [place] [address] Rheumatology 10/04/24 documented as of this encounter
--- OUTSIDE RECORDS SUMMARY | 2024-10-28 14:00 | XMS_ITS | Encounter Summary ---
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 factor Encounter Details Date Type Department Care Team (Late st Contact Info) Description 10/09/2024 2:30 PM TOP BOTTOM ATTACHING MACHINE OPERATOR Virtual Visit [address] [phone] Alex Johnson MD [address] [place] [address] [phone] buttermaker helper methotrexate user (Primary Dx); 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 Seronegative inflammatory arthritis: Joint swelling and stiffness have remained stably improved on methotrexate therapy since 2021, by video assessment today, arthritis is quiescent. Recommend tapering methotrexate to find minimum effective dose. 2. Chronic knee pain, worse with activity and weightbearing: Osteoarthritis rather than inflammatory arthritis is a likely major contributor to knee pain, and should not be expected to improve with methotrexate. Plan: 1. Continue methotrexate at 15 mg (6 tablets) once weekly. While on methotrexate: -- Check labs every 4 months (AST/ALT, Albumin, CBC with platelets) -- Limit alcohol intake to 2 drinks weekly; use folate 1 mg daily. --Tylenol 500-1000 mg can be used as needed up to three times daily for nausea/headache associated with dosing. 2. As of November 06, 2024, reduce methotrexate to 5 tablets (12.5 mg) once weekly. If no change in joint symptoms during the month of November, reduce methotrexate to 4 tablets once weekly on December 06, 2024. Continue to taper methotrexate weekly dose by 1 tablet each month until either joint swelling, redness, warmth, stiffness recur, or until methotrexate is completely tapered off. 3. For relief of residual joint pain not responsive to methotrexate, use acetaminophen 1000 mg up to 3 times daily as needed. BOTTOM ATTACHING MACHINE OPERATOR documented in this encounter Progress Notes * Alex Johnson MD - 10/09/2024 2:30 PM CST Images from the original note were not included. Heidi Miller Date of : 1945 Age: [age] year old Date of Visit: 10/09/2024 Primary care provider: Bonny Cooley Assessment and Plan: # Seronegative RA: # Osteoarthritis, knees and hands # MS Peripheral joint swelling and stiffness pain stable and improved since the last clinic visit 3 years ago. Video exam shows no inflammatory joint changes. Blood work in April 2020 showed normal CBC. Creatinine and transaminases were last measured in August 2019; normal. Discussion: Seronegative inflammatory arthritis has continued well-controlled with no symptoms obviously attributable to active inflammatory disease for at least 3 years. I suspect that daily discomfort in the hands and the knees reflects progressive osteoarthritis, and should not be expected to resolve with methotrexate. On the other hand, patient's report of fatigue and reduced exercise capacity and lassitude could be reflective of a side effect of methotrexate.Seronegative status predicts good overall prognosis for joints, and I now recommend a trial of tapering methotrexate to find a minimum effective dose. Diagnosis: 1. Seronegative inflammatory arthritis: Joint swelling and stiffness have remained stably improved on methotrexate therapy since 2021, by video assessment today, arthritis is quiescent. Recommend tapering methotrexate to find minimum effective dose. 2. Chronic knee pain, worse with activity and weightbearing: Osteoarthritis rather than inflammatory arthritis is a likely major contributor to knee pain, and should not be expected to improve with methotrexate. Plan: 1. Continue methotrexate at 15 mg (6 tablets) once weekly. While on methotrexate: -- Check labs every 4 months (AST/ALT, Albumin, CBC with platelets) -- Limit alcohol intake to 2 drinks weekly; use folate 1 mg daily. --Tylenol 500-1000 mg can be used as needed up to three times daily for nausea/headache associated with dosing. 2. As of November 06, 2024, reduce methotrexate to 5 tablets (12.5 mg) once weekly. If no change in joint symptoms during the month of November, reduce methotrexate to 4 tablets once weekly on December 06, 2024. Continue to taper methotrexate weekly dose by 1 tablet each month until either joint swelling, redness, warmth, stiffness recur, or until methotrexate is completely tapered off. 3. For relief of residual joint pain not responsive to methotrexate, use acetaminophen 1000 mg up to 3 times daily as needed. Other: # MS # Night sweats # Fatigue # OA s/p R TKA # Osteoporosis # Lympedema -RTC in 6 months Alex Johnson MD Staff Farm Helper, [facility] On the day of the encounter, a total of 50 minutes was spent in chart review, and in counseling andcoordination of care, regarding the patient's complex medical problem of seronegative inflammatory arthritis, high risk medication. The longitudinal plan of care for the diagnosis(es)/condition(s) as documented were addressed during this visit. Due to the added complexity in care, I will continue to support Heidi in the subsequent management and with ongoing continuity of care. 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 rheumatoid factor (H) 04/12/2017 Priority: Medium YUE (obstructive sleep apnea) 12/31/2016 Priority: Medium Home Sleep Apnea test at wt 160lbs 12/30/2016 AHI 14.3 Idiopathic progressive polyneuropathy 10/05/2016 Priority: Medium Dermatitis 05/07/2015 Priority: Medium Xerosis of skin 05/07/2015 Priority: Medium SK (seborrheic keratosis) 05/07/2015 Priority: Medium Lentigines 05/07/2015 Priority: Medium History of multiple sclerosis (H) 05/08/2014 Priority: Medium Hair thinning 05/08/2014 Priority: Medium Fatigue 05/08/2014 Priority: Medium Senile osteoporosis 05/08/2014 Priority: Medium Osteoporosis 09/25/2013 Priority: Medium Problem list name updated by automated process. Provider to review Hyperlipidemia with target LDL less than 130 Priority: Medium Diagnosis updated by automated process. Provider to review and confirm. Hypertension goal BP (blood pressure) < 140/90 Priority: Medium Depression, major, recurrent Priority: Medium Hyperparathyroidism Priority: Medium Hypercalcemia 01/19/2012 Priority: Medium ACL (anterior cruciate ligament) tear 10/24/2009 Priority: Medium Gait difficulty 10/24/2009 Priority: Medium Current Outpatient Medications Medication Sig Dispense Refill amLODIPine-benazepril (LOTREL) 10-20 MG capsule TAKE ONE CAPSULE BY MOUTH DAILY 60 capsule 0 buPROPion (WELLBUTRIN XL) 300 MG 24 hr tablet TAKE ONE TABLET BY MOUTH EVERY MORNING 90 tablet 0 Cholecalciferol (VITAMIN D-3 PO) Take 4,000 mg by mouth 2 times daily. Cranberry 1000 MG CAPS Take 1,000 mg by mouth 2 times daily Evening Berkeley Oil CAPS Take 1,300 mg by mouth 2 times daily. fish oil-omega-3 fatty acids (OMEGA 3) 1000 MG capsule Take by mouth See Admin Instructions. DHA 900mg/EPA 180mg daily folic acid (FOLVITE) 1 MG tablet TAKE 4 TABLETS(4 MG) BY MOUTH DAILY. FOLLOW-UP WITH DOCTOR WERO. 120 tablet 2 GINKGO BILOBA EXTRACT PO Take 1 tablet by mouth daily Amscdvxomuh-Xwbbwmpye-Egq C-Mn (GLUCOSAMINE-CHONDROITIN) TABS Take 1,500 mg by mouth 2 times daily.200 Chrondrointin. MAGNESIUM OXIDE PO Take 500 mgy by mouth 2 times daily methotrexate 2.5 MG tablet TAKE 7 TABLETS BY MOUTH EVERY WEEK 28 tablet 5 Multiple Vitamins-Minerals (ZINC PO) Take 1 tablet by mouth 2 times daily NONFORMULARY Takes MElaleuca vitality total multi vit twice daily (130 mg) nystatin (MYCOSTATIN) 039665 UNIT/GM external powder Apply topically 2 times daily as needed 60 g 0 order for DME Equipment being ordered: knee high or thigh high compression stockings, 15-20, 20-30 or 30-40 mmgh, night time bandaging compression alternative, compression bandaging supplies 4 each 4 order for DME Equipment being ordered: SUDARSHAN stockings 20-30 mmHG 1 Device 0 order for DME Equipment being ordered: Single end Folding cane. 1 each 0 Selenium 200 MCG CAPS Take 200 mcg by mouth 2 times daily vitamin C (ASCORBIC ACID) 1000 MG TABS Take 1,000 mg by mouth 2 times daily celecoxib (CELEBREX) 100 MG capsule TAKE ONE CAPSULE BY MOUTH EVERY EVENING (Patient not taking: TAKE ONE CAPSULE BY MOUTH EVERY EVENING) 90 capsule 0 FLUoxetine (PROZAC) 20 MG capsule Take 1 capsule (20 mg) by mouth daily (Patient not taking: Reported on 10/09/2024) 90 capsule 1 leucovorin (WELLCOVORIN) 5 MG tablet Take 1 tablet (5 mg) by mouth every 7 days Take the day after taking Methotrexate every week. For additional refills, please schedule a follow-up appointment at [phone] (Patient not taking: Reported on 10/09/2024) 12 tablet 0 triamcinolone (KENALOG) 0.1 % paste Take by mouth 2 times daily For up to a week. 5 g 0 No current facility-administered medications for this visit. History of Present Illness: Patient presents for follow-up of seronegative rheumatoid arthritis. I last evaluated her by telephone visit in October 09, 2021, 3 years ago. At that visit, inflammatory joint disease was well-controlled. I recommend continuing methotrexate 17.5 mg weekly. Interval history October 09, 2024 She reports that her health is stable since the last visit. She uses a walker to counter MS. Joints are not wonderful but she still walks less than a block due to fatigue and joint discomfort. R knee (s/p TKR) is prominent. In the mornings, no stacking machine operator stiffness. Small joints of hands and feet are not visibly swollen. She still has painful cramping finger extension. Ibuprofen helps with knee pain. She takes 2 tabs daily Still takes methotrexate 7 tabs weekly. No AE. As a scheduled dose approaches, there is more pain in the hands. Also notes bladder control issues after taking methotrexate. She no longer takes celebrex for pain; primary provider concerns about blood pressure and kidney function were raised in the past. She is still using medication for multiple sclerosis,, tolerating well. She is concerned that several medications might be subject to milk binders. Interval history October 09, 2021 She ran out of methotrexate in late 2020, and had recurrence of bodywide pain in muscles and joints. She restarted methotrexate and had better control of joint pain. Now, no stacking machine operator stiffness. Her hands have a tendency to contract into involbuntary claws in the mornings. She notes daily knee pain; worse with activity; methotrexate seems to help. Ibuprofen helps with knee pain. She continues with persistent fatigue. She has difficulty with focussing on activities. Methotrexate is well-tolerated; 17.5 mg/week Interval History 11/21/19 At her last visit, she was doing well on methotrexate 17.5mg. Since then, she continues to do fairly well from an RA perspective, though she notes that she has some pain in her MCPs the day before her methotrexate is due. She has noticed that she has intermitting cramping in her hands. Not trigger finger, but can be involuntary extension of her fingers. This lasts only briefly. She will start drinking two extra pint glasses of water to see if this improves the issue. Her biggest complaint is that she is very fatigued. This has been going on for several months and is constant. No clear association with methotrexate use. Having drenching night sweats 6 months. This is not every night, but is fairly frequent. No weight loss. She has a good appetite. Last DEXA: 12/10/2016 Osteoporosis Risk Score/FRAX score http://[email or web address].ac.uk/FRAX/ Risk of Hip Fracture: 0.1 (Significant if >3%) Risk of Overall Fracture: 4.7 (Significant if >20%) No results found. Calcium/VitD: Bisphosphonate: HepBcore Ab: HepBsurfaceAg: Neg 04/12/2017 HepC: Neg 04/12/2017 HIV: Tb: Neg 04/12/2017 Vaccinations: (best done 2 weeks before therapy, or hold for 2 weeks, (MTX, abatacept, ritux worst) Flu: 05/23/2019 Td(ap): 12/21/2017 (1 dose Tdap, then Td every 10 years) Shingrix: Zostavax 05/12/2011- Needs Shingrix (>50 years, 2 doses 2-6 months apart, can be given with pneumo vaccine) PCV13: 12/21/2017 (give first) PPSV23: 05/12/2011, due for 2nd dose (give at least 8 weeks after PCV13, 2nd dose 5 years after first) HPV: (Females 26 and under, males 21 and under; 3 doses: 0, 1-2, 6 months The ASCVD Risk score (Navid DURAN, et al., 2019) failed to calculate for the following reasons: The 2019 ASCVD risk score is only valid for ages 40 to 79 (re-calculate q5 years, 1.5 multiplier for RA) Review of Systems: A complete, 10-point ROS was negative except as in Interval History Past Medical History: Past Medical History: Diagnosis Date Allergic rhinitis all adult life Arthritis about 14 yr Benign positional vertigo about 5 yr ago Depression, major, recurrent Depressive disorder most of my life Hearing problem several years, worse recently Hypercalcemia sees endo Hyperlipidemia LDL goal < 130 Hyperparathyroidism Hypertension goal BP (blood pressure) < 140/90 Kidney problem 2014 kidney stones Migraines visually evoked Multiple sclerosis (H) 1984 [facility] (took steroids and got worse so no other meds since) episodes tend to be exhaustion/depression Obstructive sleep apnea redent YUE (obstructive sleep apnea) 12/31/2016 Home Sleep Apnea test at wt 160lbs 12/30/2016 AHI 14.3 Osteoporosis 3 yr ago Pneumonia age 11 Reduced vision nearsighted until cataracts removed, now 20/20 Tinnitus I've had it for years Past Surgical History: Procedure Laterality Date ADENOIDECTOMY 194 ARTHROSCOPY KNEE Right 1997 C/SECTION, CLASSICAL CATARACT EXTRACTION Bilateral SECTION 1982 CHOLECYSTECTOMY 2002 CHOLECYSTECTOMY 2004 COLONOSCOPY 08/20/11 [facility] COLONOSCOPY N/A 07/08/2020 Procedure: COLONOSCOPY; Surgeon: Jaime Grover MD; Location: [facility] Drainage of Ovarian Cyst(s) EXPLORE NECK 12/18/2013 Procedure: EXPLORE NECK; Surgeon: Brisa Ly MD; Location: [facility] OR KIDNEY STONE SURGERY Right 2014 KNEE SURGERY scope OOPHORECTOMY PARATHYROIDECTOMY 12/18/2013 Procedure: PARATHYROIDECTOMY; Surgeon: Brisa Ly MD; Location: [facility] PARATHYROIDECTOMY 2005 SURGICAL HISTORY OF - unilateral ovary out, with a cyst, about 13 to 15 years ago TONSILLECTOMY 1948 TONSILLECTOMY TOTAL KNEE ARTHROPLASTY Right 12/12/2018 Social History: Social History Occupational History Not on file Tobacco Use Smoking status: Former Current packs/day: 0.00 Average packs/day: 2.0 packs/day for 3.0 years (5.9 ttl pk-yrs) Types: Cigarettes Start date: 04/23/1976 Quit date: 12/17/1977 Years since quittin.8 Smokeless tobacco: Never Substance and Sexual Activity Alcohol use: No Drug use: No Sexual activity: Not Currently Family History: Family History Problem Relation Age of Onset Hypertension Mother Other Cancer Mother Skin-on nose Cancer Mother skin cancer Thyroid Disease Mother Diverticulitis Mother Hypertension Maternal Grandmother Hypertension Maternal Grandfather Other Cancer Father Brain Cancer Father brain tumor Hypertension Maternal Aunt Hypertension Sister Asthma Daughter Depression Daughter Depression Daughter Autism Spectrum Disorder Daughter Depression Daughter Migraines Daughter Ulcerative Colitis Daughter Crohn's Disease No family hx of Skin Cancer Mother Brain Cancer Father Hypertension Sister Hypertension Maternal Aunt Asthma Daughter Depression Daughter Depression Daughter Migraines Daughter Depression Daughter Allergies: Allergies Allergen Reactions Dust Mites Milk (Cow) Other (See Comments) foggy and tired Mold Pollen Extract Other reaction(s): Headache Trees Physical Exam: not currently . Wt Readings from Last 4 Encounters: 05/14/20 81.6 kg (180 lb) 04/23/20 81.6 kg (180 lb) 04/11/20 81.6 kg (180 lb) 10/18/19 84.4 kg (186 lb) There is no height or weight on file to calculate BMI. Constitutional: well-developed, appearing stated age; cooperative Eyes: nl EOM, PERRLA, vision, conjunctiva, sclera ENT: nl external ears, nose, hearing, lips, teeth, gums, throat No mucous membrane lesions, normal saliva pool Neck: no mass or thyroid enlargement Resp: Breathing is unlabored MS: Julian's and Heberden's nodes present on both hands. Fist formation full; wrist shows full flexion and extension. Elbows and shoulders show full range of motion. Skin: no nail pitting, alopecia, rash, nodules or lesions Neuro: nl cranial nerves Psych: nl judgement, orientation, memory, affect. Data: No results found for any visits on 10/09/24. Latest Ref Rng & Units 09/03/2019 2:05 PM 11/23/2019 2:52 PM 04/11/2020 8:35 PM RHEUM RESULTS Albumin 3.4 - 5.0 g/dL 3.5 ALT 0 - 50 U/L 31 AST 0 - 45 U/L 18 CK Total 30 - 225 U/L 55 Creatinine 0.52 - 1.04 mg/dL 0.79 CRP Inflammation 0.0 - 8.0 mg/L 3.8 GFR Estimate If Black >60 mL/min/[1.73_m2] 85 GFR Estimate >60 mL/min/[1.73_m2] 73 Hematocrit 35.0 - 47.0 % 42.9 43.8 Hemoglobin 11.7 - 15.7 g/dL 13.6 14.0 WBC 4.0 - 11.0 10e9/L 7.1 7.2 RBC Count 3.8 - 5.2 10e12/L 4.31 4.32 RDW 10.0 - 15.0 % 13.9 14.2 MCHC 31.5 - 36.5 g/dL 31.7 32.0 MCV 78 - 100 fl 100 101 Platelet Count 150 - 450 10e9/L 264 276 Sed Rate 0 - 30 mm/h 10 Rheumatoid Factor Date Value Ref Range Status 09/20/2016 <20 <20 IU/mL Final , Cyclic Citrullinated Peptide Antibody, IgG Date Value Ref Range Status 09/20/2016 1 <7 U/mL Final Comment: Negative , , , , , , CHERELLE Screen by EIA Date Value Ref Range Status 09/20/2016 <1.0 Interpretation: Negative <1.0 Final , , , , , , , , Hep B Surface Agn Date Value Ref Range Status 04/12/2017 Nonreactive NR^Nonreactive Final , , , , , , , , , , , , , , , , , , , , Albumin Fraction Date Value Ref Range Status 09/21/2016 3.9 3.7 - 5.1 g/dL Final Alpha 2 Fraction Date Value Ref Range Status 09/21/2016 0.8 0.5 - 0.9 g/dL Final Beta Fraction Date Value Ref Range Status 09/21/2016 0.7 0.6 - 1.0 g/dL Final Gamma Fraction Date Value Ref Range Status 09/21/2016 0.5 (L) 0.7 - 1.6 g/dL Final Monoclonal Peak Date Value Ref Range Status 09/21/2016 0.0 0.0 g/dL Final ELP Interpretation: Date Value Ref Range Status 09/21/2016 Final Hypogammaglobulinemia. No monoclonal protein seen. Recommend a urine for immunofixation to rule out a light chain secreting myeloma. Pathologic significance requires clinical correlation. Giles Wade M.D., Ph.D., Pathologist. , , Immunofixation ELP Date Value Ref Range Status 09/21/2016 Final No monoclonal protein seen on immunofixation. Pathological significance requires clinical correlation. Giles Wade M.D., Ph.D. IGG Date Value Ref Range Status 10/06/2016 573 (L) 695 - 1,620 mg/dL Final IGA Date Value Ref Range Status 10/06/2016 47 (L) 70 - 380 mg/dL Final IGM Date Value Ref Range Status 10/06/2016 34 (L) 60 - 265 mg/dL Final Telephone visit Start 12:53 End 1:14 BOTTOM ATTACHING MACHINE OPERATOR documented in this encounter Plan of Treatment Upcoming Encounters Date Type Department Care Team (Late st Contact Info) Description 04/25/2025 1:30 PM CDT Office Visit [facility] [address] [phone] Alex Johnson MD [address] [place] [address] [phone] Scheduled Orders Name Type Priority Associated Diagnoses Orde r Schedule CBC with platelets Lab Routine buttermaker helper methotrexate user Every 3 Months for 4 Occurrences starting 10/09/2024 until 10/09/2025 AST Lab Routine custodial methotrexate user Every 3 Months for 4 Occurrences starting 10/09/2024 until 10/09/2025 ALT Lab Routine buttermaker helper methotrexate user Every 3 Months for 4 Occurrences starting 10/09/2024 until 10/09/2025 Albumin level Lab Routine buttermaker helper methotrexate user Every 3 Months for 4 Occurrences starting 10/09/2024 until 10/09/2025 Creatinine Lab Routine custodial methotrexate user Every 3 Months for 4 Occurrences starting 10/09/2024 until 10/09/2025 CRP inflammation Lab Routine buttermaker helper methotrexate user Expected: 10/09/2024 (Approximate), Expires: 04/10/2025 Erythrocyte sedimentation rate auto Lab Routine buttermaker helper methotrexate user Expected: 10/09/2024 (Approximate), Expires: 04/10/2025 documented as of this encounter Visit Diagnoses Diagnosis buttermaker helper methotrexate user- Primary Encounter for long-term (current) use of other medications Rheumatoid arthritis of multiple sites without rheumatoid factor (H) Rheumatoid arthritis documented in this encounter Additional Health Concerns Assessment Noted Time PHQ-9 Depression Total Score: 11 020 2:18 PM CDT documented as of this encounter Care Teams Vocational Nurse Relationship Specialty Start Date End Date Aminata Youssef MD [facility] [address] [place] [address] PCP - General Internal Medicine 06/03/21 Bettye Gonzales MD Internal Medicine 04/10/15 Antony Chakraborty MD [address] [address] INTERNAL MEDICINE - ENDOCRINOLOGY, DIABETES & METABOLISM 11/13/15 Mateo Cheema MD [address] [address] Internal Medicine 08/06/16 Ermias Colón MD [address] [id number] Referring Physician Neurology 09/23/16 Alex Johnson MD [address] [place] [address] [phone] Rheumatology 10/04/24 documented as of this encounter
--- OUTSIDE RECORDS SUMMARY | 2024-10-28 14:00 | XMS_ITS | Encounter Summary ---
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 Legal Sex Female 4:46 AM VALET PARKING ATTENDANT Gender Identity Female 08/28/2018 12:23 AM VALET PARKING ATTENDANT Sexual Orientation Straight 10/11/2019 2: 51 PM VALET PARKING ATTENDANT documented as of this encounter Plan of Treatment Upcoming Encounters Date Type Department Care Team (Late st Contact Info) Description 04/25/2025 1:30 PM CDT Office Visit [facility] [address] [place] [phone] Alex Johnson MD [address] [place] [address] [phone] documented as of this encounter Visit Diagnoses Not on filedocumented in this encounter Additional Health Concerns Assessment Noted Time PHQ-9 Depression Total Score: 11 020 2:18 PM CDT documented as of this encounter Care Teams Payment Rep Relationship Specialty Start Date End Date Aminata Youssef MD [facility] [address] [address] PCP - General Internal Medicine 06/03/21 Bettye Gonzales MD Internal Medicine 04/10/15 Antony Chakraborty MD [address] [address] INTERNAL MEDICINE - ENDOCRINOLOGY, DIABETES & METABOLISM 11/13/15 Mateo Cheema MD [address] [id number] Internal Medicine 08/06/16 Ermias Colón MD [address] [address] Referring Physician Neurology 09/23/16 Alex Johnson MD [address] [place] [id number] Rheumatology 10/04/24 documented as of this encounter
--- OUTSIDE RECORDS SUMMARY | 2024-10-28 14:00 | XMS_ITS | Encounter Summary ---
Author Organization [facility] Address [address] [place] [address]. 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 Legal Sex Female 4:46 AM 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 Gender Identity Female 08/28/2018 12:23 AM 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 Sexual Orientation Straight 10/11/2019 2: 51 PM 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 documented as of this encounter Plan of Treatment Upcoming Encounters Date Type Department Care Team (Late st Contact Info) Description 04/25/2025 1:30 PM CDT Office Visit [facility] [address] [phone] Alex Johnson MD [address] [id number] documented as of this encounter Visit Diagnoses Not on filedocumented in this encounter Additional Health Concerns Assessment Noted Time PHQ-9 Depression Total Score: 11 020 2:18 PM CDT documented as of this encounter Care Teams Resident Care Associate Relationship Specialty Start Date End Date Aminata Youssef MD [facility] & [address] [address] PCP - General Internal Medicine 06/03/21 Bettye Gonzales MD Internal Medicine 04/10/15 Antony Chakraborty MD [address] [address] INTERNAL MEDICINE - ENDOCRINOLOGY, DIABETES & METABOLISM 11/13/15 Mateo Cheema MD [address] [address] Internal Medicine 08/06/16 Ermias Colón MD [address] [address] Referring Physician Neurology 09/23/16 Alex Johnson MD [address] [place] [address] [address] [place], [place] [id number] Rheumatology 10/04/24 documented as of this encounter
--- OUTSIDE RECORDS SUMMARY | 2024-10-28 14:01 | XMS_ITS | Clinical Summary ---
Author Organization [facility] Address [address] [place] [address] Care Team Providers Care Medical Staffing Coordinator Name Role Phone Bettye Gonzales MD Unavailable + Antony Chakraborty MD Unavailable Mateo Cheema MD Unavailable [phone] Ermias Colón MD Unavailable Aminata Youssef MD Primary Care Provider Alex Johnson MD Unavailable [phone] Allergies Active Allergy Reactions Criticality Noted Date Comments Dust Mites 11/19/2013 Milk (Cow) Other (See Comments) 12/01/2018 foggy and tired Mold 11/19/2013 Pollen Extract 12/01/2018 Other reaction(s): Headache Trees 11/19/2013 Medications Evening [place] Oil CAPS Take 1,300 mg by mouth 2 times daily. Active Glucosamine-Chond roit-Vit C-Mn (GLUCOSAMINE-RIZWANA DROITIN) TABS Take 1,500 mg by mouth 2 [...] twice daily (130 mg) Active order for DMEIndications:Id iopathic progressive polyneuropathy Equipment being ordered: Single end Folding cane. 1 each 017 Active order for DMEIndications:Or thostatic hypotension Equipment being ordered: SUDARSHAN stockings 20-30 mmHG 1 Device 018 Active order for DMEIndications:Ly mphedema of both lower extremities Equipment being ordered: knee high or thigh high compression stockings, 15-20, 20-30 or 30-40 mmgh, night time bandaging compression alternative, compression bandaging supplies 4 each 4 018 Active GINKGO BILOBA EXTRACT PO Take 1 [...] times daily Active celecoxib (CELEBREX) 100 MG capsuleIndication s:Osteoarthritis, unspecified osteoarthritis type, unspecified site TAKE ONE CAPSULE BY MOUTH EVERY EVENING 90 capsule 020 Active Additional Information Patient not taking.Reported on 10/09/2024 nystatin (MYCOSTATIN) [id number] UNIT/GM external powderIndications :Intertrigo Apply topically 2 times daily as needed 60 g 020 Active triamcinolone (KENALOG) 0.1 % pasteIndications: Canker sores oral Take by mouth 2 times daily For up to a week. 5 g 020 Active FLUoxetine (PROZAC) 20 MG capsuleIndication s:Major depressive disorder, recurrent episode, moderate (H) Take 1 capsule (20 mg) by mouth daily 90 capsule 1 021 Active Additional Information Patient not taking.Reported on 10/09/2024 amLODIPine-benaze pril (LOTREL) 10-20 MG capsuleIndication s:Essential hypertension with goal blood pressure less than 140/90 TAKE ONE CAPSULE BY MOUTH DAILY 60 capsule 021 Active buPROPion (WELLBUTRIN XL) 300 MG 24 hr tabletIndications :Major depressive disorder, recurrent episode, moderate (H) TAKE ONE TABLET BY MOUTH EVERY MORNING 90 tablet 021 Active folic acid (FOLVITE) 1 MG tabletIndications :Rheumatoid arthritis of multiple sites without rheumatoid factor (H) TAKE 4 TABLETS(4 MG) BY MOUTH DAILY. FOLLOW-UP WITH DOCTOR WERO. 120 tablet 2 025 Active methotrexate 2.5 MG tabletIndications :Rheumatoid arthritis of multiple sites without rheumatoid factor (H) TAKE 6 TABLETS BY MOUTH EVERY WEEK 24 tablet 6 025 Active leucovorin (WELLCOVORIN) 5 MG tabletIndications :Rheumatoid arthritis of multiple sites without rheumatoid factor (H) Take 1 tablet (5 mg) by mouth every 7 days Take the day after taking Methotrexate every week. For additional refills, please schedule a follow-up appointment at [phone] 12 tablet 021 2024 Discontinued methotrexate 2.5 MG tabletIndications :Rheumatoid arthritis of multiple sites without rheumatoid factor (H) TAKE 7 TABLETS BY MOUTH EVERY WEEK 28 tablet 5 025 2024 Discontinued Active Problems Problem Noted Date Diagnosed Date [...] Encounters Date Type Department Care Team Description 10/09/2024 2:30 PM SHIPPING ORDER CLERK Virtual Visit [address] [phone] Alex Johnson MD manager intermediate methotrexate user (Primary Dx); Rheumatoid arthritis of multiple sites without rheumatoid factor (H) 10/04/2024 Travel 09/03/2024 Refill [facility] [address] [address] Alex Johnson MD Medication Refill from Last 3 Months Immunizations Name Administration [...] Sex Assigned at Female 08/28/2018 12:23 AM SHIPPING ORDER CLERK Legal Sex Female 4:46 AM SHIPPING ORDER CLERK Gender Identity Female 08/28/2018 12:23 AM SHIPPING ORDER CLERK Sexual Orientation Straight 10/11/2019 2: 51 PM SHIPPING ORDER CLERK Last Filed Vital Signs Vital Sign Reading Time Taken Comments Blood Pressure 135/69 07/08/2020 10:47 AM SHIPPING ORDER CLERK Pulse 80 07/08/2020 10:47 AM SHIPPING ORDER CLERK Temperature 37 C (98.6 F) 04/23/2020 4:29 PM CDT Respiratory Rate 25 07/08/2020 10:05 AM SHIPPING ORDER CLERK Oxygen Saturation 98% 07/08/2020 10:49 AM SHIPPING ORDER CLERK Inhaled Oxygen Concentration - - Weight 81.6 kg (180 lb) 05/14/2020 2:51 PM CDT Height 166.4 cm (5' 5.5) 05/14/2020 2:51 PM CDT Body Mass Index 29.5 05/14/2020 2:51 PM CDT Plan of Treatment Upcoming Encounters Date Type Department Care Team (Late st Contact Info) Description 04/25/2025 1:30 PM CDT Office Visit [facility] [address] [phone] Alex Johnson MD [address] [place] [id number] Health Maintenance Due Date Last Done Comments ANNUAL REVIEW OF HM ORDERS 1945 ZOSTER IMMUNIZATION (1 of 2) 07/07/2011 05/12/2011 MEDICARE ANNUAL WELLNESS VISIT 05/01/2016 05/01/2015, 09/25/2013, 05/12/2011 ADVANCE CARE PLANNING 01/18/2017 01/19/2012, 012 LIPID 12/21/2018 12/21/2017, 04/09, 09/25/2013, Additional history exists RSV VACCINE (1 - 1-dose 75+ series) 2019 BMP 07/24/2020 07/24/2019, 08/09, 08/07/2018, Additional history exists PHQ-9 08/01/2020 01/31/2020, 11/08, 09/04/2019, Additional history exists FALL RISK ASSESSMENT 10/17/2020 10/18/2019, 12/28/2016, 05/11/2016, Additional history exists DIABETES SCREENING 07/24/2022 07/24/2019, 0 08/28/2018, 08/07/2018, Additional history exists COVID-19 Vaccine ( season) 2024 11/24/2023, 05/30/2022, 01/24/2022, Additional history exists INFLUENZA VACCINE (#1) 2024 2, 05/04/2021, 05/16/2020, Additional history exists DTAP/TDAP/TD IMMUNIZATION (2 - Td or Tdap) 12/22/2027 12/21/2017 DEXA 12/11/2031 12/10/2016, 12/2016, 09/13/2013, Additional history exists DEPRESSION ACTION PLAN Completed 8, 12/31/2016, 12/31/2016, Additional history exists Pneumococcal Vaccine: 50+ Years Completed 12/21/2017, 05/12/2011 MAMMO SCREENING Discontinued [...] Diagnosis Comments COLONOSCOPY Routine 07/08/2020 8:56 AM SHIPPING ORDER CLERK COMPREHENSIVE METABOLIC PANEL Routine 07/24/2019 3:29 PM SHIPPING ORDER CLERK Other fatigue MA SCREENING DIGITAL BILATERAL Routine 08/16/2018 11:45 AM SHIPPING ORDER CLERK Encounter for screening mammogram for breast cancer LIPID PROFILE Routine 12/21/2017 1:42 PM CDT Hyperlipidemia with target LDL less than 130 DX BONE DENSITY Routine 12/10/2016 5:01 PM CDT Osteoporosis from Last 3 Months or Most Recently Relevant to Health Maintenance Results * COLONOSCOPY (07/08/2020 8:56 AM SHIPPING ORDER CLERK) [address] [place] [id number] [phone] Endoscopy Department Patient Name: Lowell Miller Procedure Date: 07/08/2020 8:56 AM Date of : 1945 Admit Type: Outpatient Age: 74 Room: #3 Gender: Female Note Status: Finalized Attending MD: Jaime Grover MD Total Sedation Time: Procedure: Colonoscopy Indications: Rectal bleeding, Constipation Providers: Jaime Grover MD Referring MD: Bonny Cooley Requesting Provider: Bonny Cooley Medicines: Midazolam 4 mg IV, Fentanyl 200 micrograms IV Complications: No immediate complications. Procedure: Pre-Anesthesia Assessment: - Prior to the procedure, a History and Physical was performed, and patient medications and allergies were reviewed. The patient is competent. The risks and benefits of the procedure and the sedation options and risks were discussed with the patient. All questions were answered and informed consent was obtained. Patient identification and proposed procedure were verified by the physician in the pre-procedure area. Mental Status Examination: alert and oriented. Airway Examination: normal oropharyngeal airway and neck mobility. Respiratory Examination: clear to auscultation. CV Examination: normal. Prophylactic Antibiotics: The patient does not require prophylactic antibiotics. Prior Anticoagulants: The patient has taken no previous anticoagulant or antiplatelet agents. ASA Grade Assessment: II - A patient with mild systemic disease. After reviewing the risks and benefits, the patient was deemed in satisfactory condition to undergo the procedure. The anesthesia plan was to use moderate sedation / analgesia (conscious sedation). Immediately prior to administration of medications, the patient was re-assessed for adequacy to receive sedatives. The heart rate, respiratory rate, oxygen saturations, blood pressure, adequacy of pulmonary ventilation, and response to care were monitored throughout the procedure. The physical status of the patient was re-assessed after the procedure. After obtaining informed consent, the colonoscope was passed under direct vision. Throughout the procedure, the patient's blood pressure, pulse, and oxygen saturations were monitored continuously. The Colonoscope was introduced through the anus and advanced to the cecum, identified by appendiceal orifice and ileocecal valve. The colonoscopy was performed without difficulty. The patient tolerated the procedure well. The quality of the bowel preparation was good (after lavage and aspiration). Findings: Hemorrhoids were found on perianal exam. A few medium-mouthed diverticula were found in the sigmoid colon. Non-bleeding internal hemorrhoids were found during retroflexion. The hemorrhoids were small. The exam was otherwise without abnormality on direct and retroflexion views. Moderate Sedation: Moderate (conscious) sedation was administered by the endoscopy nurse and supervised by the endoscopist. The patient's oxygen saturation, heart rate, blood pressure and response to care were monitored. Total physician intraservice time was 23 minutes. Impression: - Hemorrhoids found on perianal exam. - Diverticulosis in the sigmoid colon. - Non-bleeding internal hemorrhoids. - The examination was otherwise normal on direct and retroflexion views. - No specimens collected. - Rectal bleeding was likely related to hemorrhoids or other outlet bleeding in setting of constipation (now improved with bowel regimen). Recommendation: - Discharge patient to home (with escort). - Resume previous diet. - Continue present medications. - Given age she likely does not require a repeat colonoscopy in 10 years. __ Jaime Grover MD 07/08/2020 9:58:41 AM I was physically present for the entire viewing portion of the exam. Signature of teaching physician [id number] Grover MD Number of Addenda: 0 Note Initiated On: 07/08/2020 8:56 AM Scope In: Scope Out: RADIOLOGY RESULTS 07/08/2020 8:56 AM SHIPPING ORDER CLERK Bonny Cooley MD PROCEDURES Final Result RADIOLOGY RESULTS * (ABNORMAL) Comprehensive metabolic panel (BMP + Alb, Alk Phos, ALT, AST, Total. Bili, TP) (07/24/2019 3:29 PM SHIPPING ORDER CLERK) Sodium 143 133 - 144 mmol/L 07/25/2019 9:58 AM SHIPPING ORDER CLERK [facility] Potassium 4.5 3.4 - 5.3 mmol/L 07/25/2019 9:58 AM SHIPPING ORDER CLERK [facility] Chloride 112(H) 94 - 109 mmol/L 07/25/2019 9:58 AM [facility] Carbon Dioxide 24 20 - 32 mmol/L 07/25/2019 10:31 AM [facility] Anion Gap 7 3 - 14 mmol/L 07/25/2019 10:31 AM [facility] Glucose 92 70 - 99 mg/dL 07/25/2019 10:31 AM [facility] Comment:Non Fasting Urea Nitrogen 19 7 - 30 mg/dL 07/25/2019 10:31 AM [facility] Creatinine 0.80 0.52 - 1.04 mg/dL 07/25/2019 10:31 AM [facility] GFR Estimate 72 >60 mL/min/{1 .73_m2} 07/25/2019 10:31 AM [facility] Comment: Non GFR Calc Starting 07/25/2018, serum creatinine based estimated GFR (eGFR) will be calculated using the Chronic Kidney Disease Epidemiology Collaboration (CKD-EPI) equation. GFR Estimate If Black 84 >60 mL/min/{1 .73_m2} 07/25/2019 10:31 AM [facility] Comment: GFR Calc Starting 07/25/2018, serum creatinine based estimated GFR (eGFR) will be calculated using the Chronic Kidney Disease Epidemiology Collaboration (CKD-EPI) equation. Calcium 9.9 8.5 - 10.1 mg/dL 07/25/2019 10:31 AM [facility] Bilirubin Total 0.3 0.2 - 1.3 mg/dL 07/25/2019 10:36 AM [facility] Albumin 3.8 3.4 - 5.0 g/dL 07/25/2019 10:36 AM [facility] Protein Total 6.8 6.8 - 8.8 g/dL 07/25/2019 10:36 AM [facility] Alkaline Phosphatase 97 40 - 150 U/L 07/25/2019 10:36 AM [facility] ALT 34 0 - 50 U/L 07/25/2019 10:36 AM [facility] AST 21 0 - 45 U/L 07/25/2019 10:36 AM SHIPPING ORDER CLERK [facility] Blood specimen (specimen) 07/24/2019 3:29 PM SHIPPING ORDER CLERK 07/24/2019 3:30 PM SHIPPING ORDER CLERK us Bonny Cooley MD LAB - BLOOD ORDERABLES Final R esult [facility] [address] [place] [address] * *MA Screening Digital Bilateral (08/16/2018 11:45 AM SHIPPING ORDER CLERK) Anatomical Region Laterality Modality Breast Bilateral Mammography Impressions 08/17/2018 10:40 AM SHIPPING ORDER CLERK IMPRESSION: BI-RADS CATEGORY: 1 - NEGATIVE. RECOMMENDED FOLLOW-UP: Annual Mammography. The patient will be notified of the results. I have personally reviewed the examination and initial interpretation and I agree with the findings. YOSEPH PERALTA MD Narrative 08/17/2018 10:40 AM SHIPPING ORDER CLERK Examination: Bilateral digital screening mammography with computer aided detection. History: No symptoms, routine screening. Comparison: Diagnostic mammogram 05/09/2015. Screening mammogram 05/07/2015. BREAST DENSITY: Scattered fibroglandular densities.. Findings: No significant change. Result [facility] us Bonny Cooley MD IMG MAMMOGRAPHY ORDERABLES Fin al Result * (ABNORMAL) Lipid Profile (Chol, Trig, HDL, LDL calc) (12/21/2017 1:42 PM CDT) Cholesterol 203(H) <200 mg/dL 12/22/2017 12:46 PM CDT [facility] Comment:Desirable: <200 mg/d l Triglycerides 101 <150 mg/dL 12/22/2017 12:46 PM CDT [facility] Comment:Non Fasting HDL Cholesterol 54 >49 mg/dL 8 12:46 PM CDT [facility] LDL Cholesterol Calculated 129(H) <100 mg/dL 12/22/2017 12:46 PM CDT [facility] Comment: Above desirable: 100-129 mg/dl Borderline High: 130-159 mg/dL High: 160-189 mg/dL Very high: >189 mg/dl Non HDL Cholesterol 149(H) <130 mg/dL 12/22/2017 12:46 PM CDT [facility] Comment: Above Desirable: 130-159 mg/dl Borderline high: 160-189 mg/dl High: 190-219 mg/dl Very high: >219 mg/dl Blood specimen (specimen) 12/21/2017 1:42 PM CDT 12/21/2017 1:43 PM CDT us Bonny Cooley MD LAB - BLOOD ORDERABLES Final R esult [facility] [address] [place] [address] * DX Hip/Pelvis/Spine (12/10/2016 5:01 PM CDT) Anatomical Region Laterality Modality Dexa Bone Mineral Den sity Narrative 12/10/2016 9:14 PM CDT ATTENTION: Easy to read DXA/VFA reports (formatted and presented as tables) can be found in EPIC under Chart review > Imaging tab > DXA [facility] [address] [place] [id number] Phone: Fax: FINAL REPORT Patient name: LOWELL MILLER ([id number] ) Patient demographics: 72.3 year old White Female of 64.5 in. height and 152.0 lbs. weight Ordering provider: BONNY COOLEY History: HIGH CALCIUM, Hyperparathyroid, KIDNEY STONES, LOW BONE DENSITY, LOW VITAMIN D, MS, OVARIES REMOVED (1 OR 2), POSTMENOPAUSAL, reformed tobacco habit Current treatments: PREDNISONE, Vitamin D Scan: DXA exam ([id number] ): [employer] Exam date: 12/10/2016 Comparison: 12/10/2016 09/13/2013 03/13/2008 Dual energy x-ray absorptiometry (DXA) results: Region Date BMD T - score Z - score BMD change from baseline BMD % change from baseline BMD change from previous BMD % change from previous L1-L2 12/10/2016 0.855 g/cm -2.6 -1.0 -0.033 g/cm -3.7% 0.073 g/cm 9.3% 09/13/2013 0.782 g/cm 03/13/2008 0.888 g/cm baseline baseline - - Neck Left 12/10/2016 0.668 g/cm -2.7 -1.0 09/13/2013 0.623 g/cm 03/13/2008 0.704 g/cm Total Left 12/10/2016 0.693 g/cm -2.5 -1.0 -0.091 g/cm -11.6% 0.034 g/cm 5.2% 09/13/2013 0.659 g/cm 03/13/2008 0.784 g/cm baseline baseline - - Neck Right 12/10/2016 0.590 g/cm -3.2 -1.5 09/13/2013 0.590 g/cm 03/13/2008 0.712 g/cm Total Right 12/10/2016 0.602 g/cm -3.2 -1.7 -0.126 g/cm -17.3% 0.003 g/cm 0.5% 09/13/2013 0.599 g/cm 03/13/2008 0.728 g/cm baseline baseline - - Radius 33% 12/10/2016 0.445 g/cm -3.7 -1.7 -0.176 g/cm -28.3% -0.055 g/cm -10.9% 09/13/2013 0.500 g/cm 03/13/2008 0.621 g/cm baseline baseline - - Conclusions: The most negative and valid T-score of -3.7 at the level of the wrist, corresponds with osteoporosis. (for premenopausal women and men < age 50, Z-scores, not T-scores are reported ) The most negative and valid Z-score of -1.7 at the level of the right total hip and at the level of the wrist, is WITHIN expected range for age. The risk of osteoporotic fracture increases approximately 2-fold for each 1.0 SD decrease in T-score. Low bone density is not the only risk factor for fracture; consider factors such as patient's age, fall risk, injury risk, previous osteoporotic fracture, family history of osteoporosis, etc. People with an elevated risk of fracture should be regularly evaluated for low bone mineral density. For patients eligible for Medicare, routine testing is allowed once every 2 years. Testing frequency can be increased for patients on corticosteroids. Clinical correlation is recommended. Taking into account the precision errors (reference 2) for this center A. these calculated changes in BMD to the previous exam are significant: 9.3% at the level of the L1 - L2 lumbar spine, 5.2% at the level of the left total hip, -10.9% at the level of the wrist. B. these calculated changes in BMD to the baseline exam are significant: -3.7% at the level of the L1 - L2 lumbar spine, -11.6% at the level of the left total hip, -17.3% at the level of the right total hip, -28.3% at the level of the wrist. Considerations: Given the interim decrease in BMD of -28.3% at the level of the wrist, so as to work up for possible secondary causes of low bone density, suggest that the ordering provider consider metabolic testing. Feel free to contact DXA services if you have any questions or comments. Thank you for the opportunity to be of service to you and your patient. Principal result appian developer: Abbey Morejon MD, CCD Certified Registered Locksmithpattern grader Division of Endocrinology References: 1. ISCD position statements: www.iscd.org (includes the report of the 2015 Position Development Conference) 2. LSC = least significant changes at the [facility] AP spine = 0.032 g/cm2 (01.31.2007) Left hip = 0.029 g/cm2 (01.20.2007) Right hip = 0.018 g/cm2 (01.20.2007) Left mid radius = 0.043 g/cm2 (01.31.2007) Lateral spine region = pending Total body [...] the wide range in BMD values and T-scores within the lumbar spine L2 L3. In the circumstances, the lumbar spine is represented by L1 L2. -so that 2 valid regions are available for analysis, results of the scan of the wrist were taken into consideration for determining WHO bone health diagnosis for the following reason: - parathyroid dysfunction. Template revised 7.5.2016 Bonny Cooley MD IMG DEXA ORDERABLES Final Resu lt from Last 3 Months or Most Recently Relevant to Health Maintenance Insurance MEDICARE MEDICARE MEDICARE MEDICARE Advance Directives For more information, please contact: [phone] * Full Code (Latest Code Status on File) Date Activated Date Inactivated Comments 08/29/2018 11:12 AM 07/08/2020 8:36 AM Question Answer Comments Code status determined by: Discussion with amaris cuadra/legal decision maker * Full Code Date Activated Date Inactivated Comments 08/28/2018 4:12 PM 08/29/2018 11:12 AM Question Answer Comments Code status determined by: Discussion with amaris nt/legal decision maker Care Teams Medical Staffing Coordinator Relationship Specialty Start Date End Date Aminata Yuossef MD [facility] [address] [place] [address] PCP - General Internal Medicine 06/03/21 Bettye Gonzales MD Internal Medicine 04/10/15 Antony Chakraborty MD [address] [address] INTERNAL MEDICINE - ENDOCRINOLOGY, DIABETES & METABOLISM 11/13/15 Mateo Cheema MD [address] [address] Internal Medicine 08/06/16 Ermias Colón MD [address] [id number] Referring Physician Neurology 09/23/16 Alex Johnson MD [address] [place] [id number] Rheumatology 10/04/24
--- OUTSIDE RECORDS SUMMARY | 2024-10-28 14:01 | XMS_ITS | Encounter Summary ---
Author Organization [facility] Address [address] [place] [address] Care Team Providers Care Test Borer Name Role Phone Bettye Gonzales MD Unavailable + Bonny Cooley MD Primary Care Provider [phone] Antony Chakraborty MD Unavailable Mateo Cheema MD Unavailable [phone] Ermias Colón MD Unavailable Suzanne Fernández RN Unavailable [phone] Bonny Cooley MD Unavailable [phone] Bonny Cooley MD Unavailable [phone] Pam Hernandez MD Unavailable [phone] Lázaro Horowitz MD Unavailable Jaime Grover MD Unavailable Toni Sheth MD Unavailable Toni Sheth MD Unavailable Bertram Elizabeth MD Unavailable [phone] Bonny Cooley MD Unavailable [phone] Aminata Youssef MD Primary Care Provider Bertram Elizabeth MD Unavailable +[phone] Alex Johnson MD Unavailable [phone] Bonny Cooley MD Unavailable [phone] Bertram Elizabeth MD Unavailable [phone] Bertram Elizabeth MD Unavailable +[phone] Alex Johnson MD Unavailable Encounter Details Date Type Department Care Team (Late st Contact Info) Description 02/28/2018 MyC Medical Advice [address] [address] Noe Camarena RN Social History Tobacco Use Types Packs/Day Years Used Date Smoking Tobacco: Former Cigarettes 2 3 0 04/23/1976 - 12/17/1977 Smokeless Tobacco: Never Alcohol Use Standard Drinks/Week Comments No 0 (1 standard drink = 0.6 oz pur e alcohol) Comments No Sex and Gender Information Value Date Recorded Sex Assigned at Female 08/28/2018 12:23 AM PRODUCTION GRAPHIC DESIGNER Legal Sex Female 4:46 AM PRODUCTION GRAPHIC DESIGNER Gender Identity Female 08/28/2018 12:23 AM PRODUCTION GRAPHIC DESIGNER Sexual Orientation Straight 10/11/2019 2: 51 PM PRODUCTION GRAPHIC DESIGNER documented as of this encounter Plan of Treatment Upcoming Encounters Date Type Department Care Team (Late st Contact Info) Description 04/25/2025 1:30 PM CDT Office Visit [facility] [address] [address] Alex Johnson MD [address] [place] [address] documented as of this encounter Visit Diagnoses Not on filedocumented in this encounter Additional Health Concerns Infection Onset Date Last Indicated Resolved Time COVID-19 06/23/2020 06/23/2020 07/14/2020 11:4 0 PM PRODUCTION GRAPHIC DESIGNER Recovered COVID 07/08/2020 07/08/2020 09/21/2020 1 1:39 PM PRODUCTION GRAPHIC DESIGNER Assessment Noted Time PHQ-9 Depression Total Score: 12 018 7:15 AM CDT documented as of this encounter Care Teams Test Borer Relationship Specialty Start Date End Date Bonny Cooley MD [address] [place] [address] PCP - General Family Practice 09/30/15 06/02/21 Bonny Cooley MD [address] [id number] PCP - Assigned PCP 10/05/15 10/10/18 Aminata Youssef MD [facility] & [address] [address] PCP - General Internal Medicine 06/03/21 Bettye Gonzales MD Internal Medicine 04/10/15 Antony Chakraborty MD [address] [address] INTERNAL MEDICINE - ENDOCRINOLOGY, DIABETES & METABOLISM 11/13/15 Mateo Cheema MD [address] 842635 Internal Medicine 08/06/16 Ermias Colón MD [address] 202765 Referring Physician Neurology 09/23/16 Suzanne Fernández, RN [facility] Primary Care - CC 02/28/18 Bonny Cooley MD [address] [address] Assigned PCP 10/05/15 07/26/20 Pam Hernandez MD [address] [place] [address] [place] [address] Assigned Behavioral Health Provider 05/30/20 08/01/21 Lázaro Horowitz MD [address] [address] Assigned Rheumatology Provider 05/30/20 07/19/20 Jaime Grover MD [address] [place] [address] Assigned Gastroenterology Provider 05/30/20 11/14/21 Toni Sheth MD [address] [place] [address] [id number] Assigned Pediatric Specialist Provider 05/30/20 09/07/20 Toni Sheth MD [address] [place] [address] Assigned Surgical Provider 05/30/20 04/18/21 Bertram Elizabeth MD 2270 [facility] 200 [place] [address] Assigned PCP 07/27/20 04/25/21 Bonny Cooley MD [address] [address] Assigned PCP 04/26/21 08/15/21 Bertram Elizabeth MD [address] [address] Assigned PCP 08/16/21 10/24/21 Alex Johnson MD [address] [place] [address] Assigned Rheumatology Provider 10/18/21 04/15/23 Bonny Cooley MD [address] [address] Assigned PCP 10/25/21 04/02/22 Bertram Elizabeth MD [address] [address] Assigned PCP 04/03/22 07/23/22 Bertram Elizabeth MD [address] [address] Assigned PCP 10/02/22 04/29/23 Alex Johnson MD [address] [place] [address] Rheumatology 10/04/24 documented as of this encounter
--- OUTSIDE RECORDS SUMMARY | 2024-10-28 14:01 | XMS_ITS | Encounter Summary ---
Author Organization [facility] Address [address] [place] [address] Care Team Providers Care Protection Engineer Name Role Phone Bettye Gonzales MD Unavailable + Bonny Cooley MD Primary Care Provider [phone] Antony Chakraborty MD Unavailable Mateo Cheema MD Unavailable Ermias Colón MD Unavailable Bonny Cooley MD Unavailable [phone] Bonny Cooley MD Unavailable [phone] Pam Hernandez MD Unavailable [phone] Lázaro Horowitz MD Unavailable Jaime Grover MD Unavailable Toni Sheth MD Unavailable Toni Sheth MD Unavailable Bertram Elizabeth MD Unavailable Bonny Cooley MD Unavailable [phone] Aminata Youssef MD Primary Care Provider Bertram Elizabeth MD Unavailable [phone] Alex Johnson MD Unavailable [phone] Bonny Cooley MD Unavailable Bertram Elizabeth MD Unavailable [phone] Bertram Elizabeth MD Unavailable [phone] Alex Johnson MD Unavailable Reason for Visit * Reason Onset Date Comments Lamictal Taper 04/12/2018 Encounter Details Date Type Department Care Team (Late st Contact Info) Description 04/12/2018 MyC Medical Advice [facility] [address] [address] Ermias Colón MD [address] [place] [address] Lamictal Taper Social History Tobacco Use Types Packs/Day Years Used Date Smoking Tobacco: Former Cigarettes 2 3 0 04/23/1976 - 12/17/1977 Smokeless Tobacco: Never Alcohol Use Standard Drinks/Week Comments No 0 (1 standard drink = 0.6 oz pur e alcohol) Comments No Sex and Gender Information Value Date Recorded Sex Assigned at Female 08/28/2018 12:23 AM SECURITIES ANALYST Legal Sex Female 4:46 AM SECURITIES ANALYST Gender Identity Female 08/28/2018 12:23 AM SECURITIES ANALYST Sexual Orientation Straight 10/11/2019 2: 51 PM SECURITIES ANALYST documented as of this encounter Miscellaneous Notes [...] Description 04/25/2025 1:30 PM CDT Office Visit [facility] [address] [address] Alex Johnson MD [address] [place] [address] documented as of this encounter Visit Diagnoses Diagnosis Generalized anxiety disorder- Primary documented in this encounter Additional Health Concerns Infection Onset Date Last Indicated Resolved Time COVID-19 06/23/2020 06/23/2020 07/14/2020 11:4 0 PM SECURITIES ANALYST Recovered COVID 07/08/2020 07/08/2020 09/21/2020 1 1:39 PM SECURITIES ANALYST Assessment Noted Time PHQ-9 Depression Total Score: 12 018 7:15 AM CDT documented as of this encounter Care Teams Protection Engineer Relationship Specialty Start Date End Date Bonny Cooley MD [address] [place] [address] PCP - General Family Practice 09/30/15 06/02/21 Bonny Cooley MD [address] [phone] PCP - Assigned PCP 10/05/15 10/10/18 Aminata Youssef MD [facility] & [address] [address] PCP - General Internal Medicine 06/03/21 Bettye Gonzales MD Internal Medicine 04/10/15 Antony Chakraborty MD [address] [place] [address] [address] INTERNAL MEDICINE - ENDOCRINOLOGY, DIABETES & METABOLISM 11/13/15 Mateo Cheema MD [address] [place] [address] 526[address] Internal Medicine 08/06/16 Ermias Colón MD [address] [place] [address] 031475 Referring Physician Neurology 09/23/16 Bonny Cooley MD [address] [address] Assigned PCP 10/05/15 07/26/20 Pam Hernandez MD [address] [place] [address] MALLY LYNNE [address] Assigned Behavioral Health Provider 05/30/20 08/01/21 Lázaro Horowitz MD [place] [address] [place] [address] Assigned Rheumatology Provider 05/30/20 07/19/20 Jaime Grover MD [address] [place] [address] Assigned Gastroenterology Provider 05/30/20 11/14/21 Toni Sheth MD [address] [place] [address] [id number] Assigned Pediatric Specialist Provider 05/30/20 09/07/20 Toni Sheth MD [address] [place] [address] [id number] Assigned Surgical Provider 05/30/20 04/18/21 Bertram Elizabeth MD [address] [address] Assigned PCP 07/27/20 04/25/21 Bonny Cooley MD [address] [address] Assigned PCP 04/26/21 08/15/21 Bertram Elizabeth MD [address] [address] Assigned PCP 08/16/21 10/24/21 Alex Johnson MD [address] [place] [address] Assigned Rheumatology Provider 10/18/21 04/15/23 Bonny Cooley MD [address] [address] Assigned PCP 10/25/21 04/02/22 Bertram Elizabeth MD [address] [address] Assigned PCP 04/03/22 07/23/22 Bertram Elizabeth MD [address] [address] Assigned PCP 10/02/22 04/29/23 Alex Johnson MD [address] [place] [address] Rheumatology 10/04/24 documented as of this encounter
--- OUTSIDE RECORDS SUMMARY | 2024-10-28 14:01 | XMS_ITS | Encounter Summary ---
Author Organization [facility] Address [address] [place] [address] Care Team Providers Care Steam Clothes Press Operator Name Role Phone Bettye Gonzales MD Unavailable + Bonny Cooley MD Primary Care Provider [phone] Antony Chakraborty MD Unavailable Mateo Cheema MD Unavailable Emrias Colón MD Unavailable Suzanne Fernández RN Unavailable [phone] Bonny Cooley MD Unavailable [phone] Bonny Cooley MD Unavailable [phone] Pam Hernandez MD Unavailable [phone] Lázaro Horowitz MD Unavailable Jaime Grover MD Unavailable Toni Sheth MD Unavailable Toni Sheth MD Unavailable Bertram Elizabeth MD Unavailable Bonny Cooley MD Unavailable +[phone] Aminata Youssef MD Primary Care Provider Bertram Elizabeth MD Unavailable +[phone] Alex Johnson MD Unavailable [phone] Bonny Cooley MD Unavailable [phone] Bertram Elizabeth MD Unavailable [phone] Bertram Elizabeth MD Unavailable +[phone] Alex Johnson MD Unavailable [phone] Reason for Visit * Reason Onset Date Comments Refill Request 07/14/2017 methotrexate Encounter Details Date Type Department Care Team (Latest Contact Info) Description 07/14/2017 [facility] Medical Advice [address] [address] Lázaro Horowitz MD [address] [address] Refill Request (methotrexate) Social History Tobacco Use Types Packs/Day Years Used Date Smoking Tobacco: Former Cigarettes 2 3 0 04/23/1976 - 12/17/1977 Smokeless Tobacco: Never Alcohol Use Standard Drinks/Week Comments No 0 (1 standard drink = 0.6 oz pur e alcohol) Comments No Sex and Gender Information Value Date Recorded Sex Assigned at Female 08/28/2018 12:23 AM PSYCHIATRIC NURSE Legal Sex Female 4:46 AM PSYCHIATRIC NURSE Gender Identity Female 08/28/2018 12:23 AM PSYCHIATRIC NURSE Sexual Orientation Straight 10/11/2019 2: 51 PM PSYCHIATRIC NURSE documented as of this encounter Miscellaneous Notes * Telephone Encounter - Esme Cabello RN - 07/14/2017 9:45 AM PSYCHIATRIC NURSE Pt sent [facility] message that she is [...] 90 days) Aug 09, 2017 9:15 AM PSYCHIATRIC NURSE Return Visit with Lázaro Horowitz MD [facility] [address] [address] Routing refill request to provider for review/approval because: Drug not on the [facility], [facility] or [facility] refill protocol or controlled substance Vee, mechanical ordnance assembler Nurse HIATRIC NURSE * Telephone Encounter - Ignacia Robertson RN - 07/14/2017 9:35 AM PSYCHIATRIC NURSE Refill request for METHOTREXATE 20 QWK (THURSDAYS) [...] 0.72 04/12/2017 No results found for: URIC HIATRIC NURSE documented in this encounter Plan of Treatment Upcoming Encounters Date Type Department Care Team (Late st Contact Info) Description 04/25/2025 1:30 PM CDT Office Visit [facility] Specialty [address] [address] Alex Johnson MD [address] [place] [address] documented as of this encounter Visit Diagnoses Diagnosis Rheumatoid arthritis of multiple sites without rheumatoid factor (H) Rheumatoid arthritis documented in this encounter Additional Health Concerns Infection Onset Date Last Indicated Resolved Time COVID-19 06/23/2020 06/23/2020 07/14/2020 11:4 0 PM PSYCHIATRIC NURSE Recovered COVID 07/08/2020 07/08/2020 09/21/2020 1 1:39 PM PSYCHIATRIC NURSE Assessment Noted Time PHQ-9 Depression Total Score: 17 017 1:13 PM CDT documented as of this encounter Care Teams Steam Clothes Press Operator Relationship Specialty Start Date End Date Bonny Cooley MD [address] [place] [address] PCP - General Family Practice 09/30/15 06/02/21 Bonny Cooley MD [address] [address] PCP - Assigned PCP 10/05/15 10/10/[address] [facility] [address] [place] [address] PCP - General Internal Medicine 06/03/21 Bettye Gonzales MD Internal Medicine 04/10/15 Antony Chakraborty MD [address] [place] [address] INTERNAL MEDICINE - ENDOCRINOLOGY, DIABETES & METABOLISM 11/13/15 Mateo Cheema MD [address] [address] Internal Medicine 08/06/16 Ermias Colón MD [address] [place] [address] Referring Physician Neurology 09/23/16 Suzanne Fernández, RN [facility] Machine Operator Primary Care - CC 02/28/18 Bonny Cooley MD [address] [address] Assigned PCP 10/05/15 07/26/20 Pam Hernandez MD [address] [place] [address] [place] [address] Assigned Behavioral Health Provider 05/30/20 08/01/21 Lázaro Horowitz MD [facility] [address] [place], [place] [address] Assigned Rheumatology Provider 05/30/20 07/19/20 Jaime Grover MD [address] [place] [address] Assigned Gastroenterology Provider 05/30/20 11/14/21 Toni Sheth MD [address] [place] [address] Assigned Pediatric Specialist Provider 05/30/20 09/07/20 Toni Sheth MD [address] [place] [address] [id number] Assigned Surgical Provider 05/30/20 04/18/21 Bertram Elizabeth MD [facility] 200 [place] [address] Assigned PCP 07/27/20 04/25/21 Bonny Cooley MD [address] [place] [address] Assigned PCP 04/26/21 08/15/21 Bertram Elizabeth MD [address] [address] Assigned PCP 08/16/21 10/24/21 Alex Johnson MD [address] [place] [address] Assigned Rheumatology Provider 10/18/21 04/15/23 Bonny Cooley MD [address] [address] Assigned PCP 10/25/21 04/02/22 Bertram Elizabeth MD [address] [address] Assigned PCP 04/03/22 07/23/22 Bertram Elizabeth MD [address] [place] [address] Assigned PCP 10/02/22 04/29/23 Alex Johnson MD [address] [place] [address] Rheumatology 10/04/24 documented as of this encounter
--- OUTSIDE RECORDS SUMMARY | 2024-10-28 14:01 | XMS_ITS | Encounter Summary ---
Author Organization [facility] Address [address] [place] [address] Care Team Providers Care Director Home Name Role Phone Bettye Gonzales MD Unavailable + Bonny Cooley MD Primary Care Provider Antony Chakraborty MD Unavailable Mateo Cheema MD Unavailable Ermias Colón MD Unavailable Bonny Cooley MD Unavailable [phone] Pam Hernandez MD Unavailable [phone] Lázaro Horowitz MD Unavailable Jaime Grover MD Unavailable Toni Sheth MD Unavailable Toni Sheth MD Unavailable Bertram Elizabeth MD Unavailable Bonny Cooley MD Unavailable [phone] Aminata Youssef MD Primary Care Provider Bertram Elizabeth MD Unavailable Alex Johnson MD Unavailable Bonny Cooley MD Unavailable [phone] Bertram Elizabeth MD Unavailable Bertram Elizabeth MD Unavailable [phone] Alex Johnson MD Unavailable Encounter Details Date Type Department Care Team (Late st Contact Info) Description 02/27/2019 MyC Medical Advice [address] [address] [place] Social History Tobacco [...] Sex Assigned at Female 08/28/2018 12:23 AM HISTOLOGY MANAGER Legal Sex Female 4:46 AM HISTOLOGY MANAGER Gender Identity Female 08/28/2018 12:23 AM HISTOLOGY MANAGER Sexual Orientation Straight 10/11/2019 2: 51 PM HISTOLOGY MANAGER documented as of this encounter Plan of Treatment Upcoming Encounters Date Type Department Care Team (Late st Contact Info) Description 04/25/2025 1:30 PM CDT Office Visit [facility] [address] [address] Alex Johnson MD [address] [place] [address] documented as of this encounter Visit Diagnoses Not on filedocumented in this encounter Additional Health Concerns Infection Onset Date Last Indicated Resolved Time COVID-19 06/23/2020 06/23/2020 07/14/2020 11:4 0 PM HISTOLOGY MANAGER Recovered COVID 07/08/2020 07/08/2020 09/21/2020 1 1:39 PM HISTOLOGY MANAGER Assessment Noted Time PHQ-9 Depression Total Score: 11 019 2:43 PM CDT documented as of this encounter Care Teams Director Home Relationship Specialty Start Date End Date Bonny Cooley MD [address] [place] [address] PCP - General Family Practice 09/30/15 06/02/21 Aminata Youssef MD [facility] [place] [facility] [address] [place] [address] PCP - General Internal Medicine 06/03/21 Bettye Gonzales MD MD Internal Medicine 04/10/15 Antony Chakraborty MD [address] [facility] [address] [address] MD INTERNAL MEDICINE - ENDOCRINOLOGY, DIABETES & METABOLISM 11/13/15 Mateo Cheema MD 420 [facility] [address] [address]85 Internal Medicine 08/06/16 Ermias Colón MD 420 [facility] [address] [address] Referring Physician Neurology 09/23/16 Bonny Cooley MD [address] [address] Assigned PCP 10/05/15 07/26/20 Pam Hernandez MD [address] [place] [address] [place] [address] Assigned Behavioral Health Provider 05/30/20 08/01/21 Lázaro Horowitz MD [facility] [address] [place] [address] Assigned Rheumatology Provider 05/30/20 07/19/20 Jaime Grover MD [address] [place] [address] Assigned Gastroenterology Provider 05/30/20 11/14/21 [place] [address] [place] [address] Assigned Pediatric Specialist Provider 05/30/20 09/07/20 Toni Sheth MD [address] [place] [address] Assigned Surgical Provider 05/30/20 04/18/21 Bertram Elizabeth MD [address] [address] Assigned PCP 07/27/20 04/25/21 Bonny Cooley MD [address] [address] Assigned PCP 04/26/21 08/15/21 Bertram Elizabeth MD [address] [address] Assigned PCP 08/16/21 10/24/21 Alex Johnson MD [address] [address] Assigned Rheumatology Provider 10/18/21 04/15/23 Bonny Cooley MD [address] [address] Assigned PCP 10/25/21 04/02/22 Bertram Elizabeth MD [address] [address] Assigned PCP 04/03/22 07/23/22 Bertram Elizabeth MD [address] [address] Assigned PCP 10/02/22 04/29/23 Alex Johnson MD [address] [place] [address] Rheumatology 10/04/24 documented as of this encounter
--- OUTSIDE RECORDS SUMMARY | 2024-10-28 14:01 | XMS_ITS | Encounter Summary ---
Author Organization [facility] Address [address] [place] [address] Care Team Providers Care Hand Spray Operator Name Role Phone Bettye Gonzales MD Unavailable + Bonny Cooley MD Primary Care Provider [phone] Antony Chakraborty MD Unavailable [phone] Mateo Cheema MD Unavailable [phone] Ermias Colón MD Unavailable Pam Hernandez MD Unavailable Jaime Grover MD Unavailable Bonny Cooley MD Unavailable [phone] Aminata Youssef MD Primary Care Provider Bertram Elizabeth MD Unavailable [phone] Alex Johnson MD Unavailable Bonny Cooley MD Unavailable [phone] Bertram Elizabeth MD Unavailable Bertram Elizabeth MD Unavailable Alex Johnson MD Unavailable [phone] Reason for Visit * Reason Comments Medication Refill Encounter Details Date Type Department Care Team (Late st Contact Info) Description 05/06/[address] [facility] [address] [facility] MALLY Cunningham [phone] Bonny Cooley MD 2270 [facility] 200 [place] [address] Medication Refill Social History Tobacco Use Types [...] Sex Assigned at Female 08/28/2018 12:23 AM DATA COMMUNICATIONS SOFTWARE CONSULTANT Legal Sex Female 4:46 AM DATA COMMUNICATIONS SOFTWARE CONSULTANT Gender Identity Female 08/28/2018 12:23 AM DATA COMMUNICATIONS SOFTWARE CONSULTANT Sexual Orientation Straight 10/11/2019 2: 51 PM DATA COMMUNICATIONS SOFTWARE CONSULTANT documented as of this encounter Miscellaneous [...] because: PHQ-9 score greater than 4 per [facility] protocol PHQ-9 score: PHQ 01/31/2020 PHQ-9 Total Score 11 Q9: Thoughts of better off /self-harm past 2 weeks Not at all F/U: Thoughts of suicide or self-harm - F/U: Safety concerns - MARY KATE Liu RN [facility] documented in this encounter Plan of Treatment Upcoming Encounters Date Type Department Care Team (Late st Contact Info) Description 04/25/2025 1:30 PM CDT Office Visit [facility] [address] [address] Alex Johnson MD [address] [place] [address] [address] [place] [address] documented as of this encounter Visit Diagnoses Diagnosis Major depressive disorder, recurrent episode, moderate (H) Major depressive disorder, recurrent episode, moderate documented in this encounter Additional Health Concerns Assessment Noted Time PHQ-9 Depression Total Score: 11 020 2:18 PM CDT documented as of this encounter Care Teams Hand Spray Operator Relationship Specialty Start Date End Date Bonny Cooley MD [address] [place] [address] PCP - General Family Practice 09/30/15 06/02/21 Aminata Youssef MD [facility] [address] [place] [address] PCP - General Internal Medicine 06/03/21 Bettye Gonzales MD Internal Medicine 04/10/15 Antony Chakraborty MD [address] [place] [address] [address] INTERNAL MEDICINE - ENDOCRINOLOGY, DIABETES & METABOLISM 11/13/15 Mateo Cheema MD [address] [address] Internal Medicine 08/06/16 Ermias Colón MD [address] [address] Referring Physician Neurology 09/23/16 Pam Hernandez MD [address] [place] [address] [place] [address] Assigned Behavioral Health Provider 05/30/20 08/01/21 Jaime Grover MD [address] [place] [address] Assigned Gastroenterology Provider 05/30/20 11/14/21 Bonny Cooley MD [address] [place] [address] Assigned PCP 04/26/21 08/15/21 Bertram Elizabeth MD [address] [place] [address] Assigned PCP 08/16/21 10/24/21 Alex Johnson MD [address] [place] [address] Assigned Rheumatology Provider 10/18/21 04/15/23 Bonny Cooley MD [address] [address] Assigned PCP 10/25/21 04/02/22 Bertram Elizabeth MD [address] [address] Assigned PCP 04/03/22 07/23/22 Bertram Elizabeth MD [address] [address] Assigned PCP 10/02/22 04/29/23 Alex Johnson MD [address] [place] [address] Rheumatology 10/04/24 documented as of this encounter
--- OUTSIDE RECORDS SUMMARY | 2024-10-28 14:01 | XMS_ITS | Encounter Summary ---
Author Organization [place] Address [address] [place] [address] Care Team Providers Care Technician Preventative Medicine Name Role Phone Mila Carranza MD Primary Care Provider [phone] Marci Combs MD Primary Care Provider + [phone] Mila Gil APRN [facility] Primary Care Provid er Bettye Gonzales MD Unavailable + Bettye Gonzales MD Primary Care Prov ider Bonny Cooley MD Primary Care Provider [phone] Antony Chakraborty MD Unavailable + [phone] Mateo Cheema MD Unavailable [phone] Ermias Colón MD Unavailable Suzanne Fernández RN Unavailable [phone] Bonny Cooley MD Unavailable [phone] Bonny Cooley MD Unavailable [phone] Pam Hernandez MD Unavailable [phone] Lázaro Horowitz MD Unavailable [phone] Jaime Grover MD Unavailable [phone] Toni Sheth MD Unavailable Toni Sheth MD Unavailable [phone] Bertram Elizabeth MD Unavailable [phone] Bonny Cooley MD Unavailable [phone] Aminata Youssef MD Primary Care Provider Bertram Elizabeth MD Unavailable [phone] Alex Johnson MD Unavailable Bonny Cooley MD Unavailable [phone] Bertram Elizabeth MD Unavailable [phone] Bertram Elizabeth MD Unavailable [phone] Alex Johnson MD Unavailable +[phone] Encounter Details Date Type Department Care Team (Late st Contact Info) Description 09/02/[address] [facility] Behavioral Health Intake [address] [place] [phone] Generic, Behavioral Intake, Social History Tobacco Use Types Packs/Day Years Used Date Smoking Tobacco: Never Assessed Smokeless Tobacco: Never Alcohol Use Standard Drinks/Week Comments No 0 (1 standard drink = 0.6 oz pur e alcohol) Comments No Sex and Gender Information Value Date Recorded Sex Assigned at Female 08/28/2018 12:23 AM EROSION CONTROL SPECIALIST Legal Sex Female 4:46 AM EROSION CONTROL SPECIALIST Gender Identity Female 08/28/2018 12:23 AM EROSION CONTROL SPECIALIST Sexual Orientation Straight 10/11/2019 2: 51 PM EROSION CONTROL SPECIALIST documented as of this encounter Miscellaneous Notes * Telephone Encounter - Joselyn Rodriges - 09/15/2011 4:35 PM CST Left message for client to call back to set up assessment appointment. 2nd message left await call back from client. ION CONTROL SPECIALIST * Telephone Encounter - Joselyn Rodriges - 09/09/2011 2:26 PM CST Left message for client to call back to set up assessment appointment. ION CONTROL SPECIALIST * Telephone Encounter - Joselyn Rodriges - 09/03/2011 11:59 AM CST Referral received. ION CONTROL SPECIALIST * Telephone Encounter - Ac Magana - [...] call the home number for intake. kab ION CONTROL SPECIALIST documented in this encounter Plan of Treatment Upcoming Encounters Date Type Department Care Team (Late st Contact Info) Description 04/25/2025 1:30 PM CDT Office Visit [facility] [address] [address] Alex Johnson MD [address] [place] [address] documented as of this encounter Visit Diagnoses Not on filedocumented in this encounter Additional Health Concerns Infection Onset Date Last Indicated Resolved Time COVID-19 06/23/2020 06/23/2020 07/14/2020 11:4 0 PM EROSION CONTROL SPECIALIST Recovered COVID 07/08/2020 07/08/2020 09/21/2020 1 1:39 PM EROSION CONTROL SPECIALIST documented as of this encounter Care Teams Technician Preventative Medicine Relationship Specialty Start Date End Date Mila Carranza MD [address] [phone] PCP - General Family Practice 01/21/12 09/13/13 Marci Combs MD [facility] [address] [facility] [address] [place] [address] PCP - General Family Practice 09/14/13 11/27/14 Mila Gil APRN SUPERCHARGER REPAIR SUPERVISOR [address] [place] [address] PCP - General Nurse Practitioner 11/28/14 04/30/15 Bettye Gonzales MD [address] [place] [address] PCP - General Internal Medicine 05/01/15 09/29/15 Bonny Cooley MD [address] [place] [address] PCP - General Family Practice 09/30/15 06/02/21 Bonny Cooley MD [address] [address] PCP - Assigned PCP 10/05/15 10/10/18 Aminata Youssef MD [facility] & [address] [address] PCP - General Internal Medicine 06/03/21 Bettye Gonzales MD [address] [place] [address] Internal Medicine 04/10/15 Antony Chakraborty MD [address] [address] INTERNAL MEDICINE - ENDOCRINOLOGY, DIABETES & METABOLISM 11/13/15 Mateo Cheema MD [address] [address] Internal Medicine 08/06/16 Ermias Colón MD [address] 272885 Referring Physician Neurology 09/23/16 Suzanne Fernández, [facility] Salesforce Administrator Primary Care - CC 02/28/18 Bonny Cooley MD [address] [place] [address] Assigned PCP 10/05/15 07/26/20 Pam Hernandez MD [address] [place] [address] [place] [address] Assigned Behavioral Health Provider 05/30/20 08/01/[address] [facility] [address] [place] [address] Assigned Rheumatology Provider 05/30/20 07/19/20 Jaime Grover MD [address] [place] [address] Assigned Gastroenterology Provider 05/30/20 11/14/21 Toni Sheth MD [address] [place] [address] Assigned Pediatric Specialist Provider 05/30/20 09/07/20 Toni Sheth MD [address] [place] [address] Assigned Surgical Provider 05/30/20 04/18/21 Bertram Elizabeth MD [address] [place] [address] Assigned PCP 07/27/20 04/25/21 Bonny Cooley MD [address] [place] [address] Assigned PCP 04/26/21 08/15/21 Bertram Elizabeth MD [address] [place] [address] Assigned PCP 08/16/21 10/24/21 Alex Johnson MD [address] [place] [address] Assigned Rheumatology Provider 10/18/21 04/15/23 Bonny Cooley MD [address] [place] [address] Assigned PCP 10/25/21 04/02/22 Bertram Elizabeth MD [address] [place] [address] Assigned PCP 04/03/22 07/23/22 Bertram Elizabeth MD [address] [address] Assigned PCP 10/02/22 04/29/23 Alex Johnson MD [address] [place] [address] Rheumatology 10/04/24 documented as of this encounter
--- OUTSIDE RECORDS SUMMARY | 2024-10-28 14:01 | XMS_ITS | Encounter Summary ---
Author Organization [place] Address [address] [place] [address] Care Team Providers Care Machine Applicator Cementer Name Role Phone Bettye Gonzales MD Unavailable + Bonny Cooley MD Primary Care Provider Antony Chakraborty MD Unavailable [phone] Mateo Cheema MD Unavailable Ermias Colón MD Unavailable Suzanne Fernández RN Unavailable [phone] Bonny Cooley MD Unavailable [phone] Bonny Cooley MD Unavailable [phone] Pam Hernandez MD Unavailable [phone] Lázaro Horowitz MD Unavailable Jaime Grover MD Unavailable Toni Sheth MD Unavailable Toni Sheth MD Unavailable Bertram Elizabeth MD Unavailable Bonny Cooley MD Unavailable [phone] Aminata Youssef MD Primary Care Provider [phone] Bertram Elizabeth MD Unavailable [phone] Alex Johnson MD Unavailable Bonny Cooley MD Unavailable [phone] Bertram Elizabeth MD Unavailable [phone] Bertram Elizabeth MD Unavailable [phone] Alex Johnson MD Unavailable Encounter Details Date Type Department Care Team (Late st Contact Info) Description 01/25/2018 [facility] Medical Advice [address] [address] Lázaro Horowitz MD [address] [address] Social History Tobacco Use Types Packs/Day Years Used Date Smoking Tobacco: Former Cigarettes 2 3 0 04/23/1976 - 12/17/1977 Smokeless Tobacco: Never Alcohol Use Standard Drinks/Week Comments No 0 (1 standard drink = 0.6 oz pur e alcohol) Comments No Sex and Gender Information Value Date Recorded Sex Assigned at Female 08/28/2018 12:23 AM PROCESS DEVELOPMENT TECHNICIAN Legal Sex Female 4:46 AM PROCESS DEVELOPMENT TECHNICIAN Gender Identity Female 08/28/2018 12:23 AM PROCESS DEVELOPMENT TECHNICIAN Sexual Orientation Straight 10/11/2019 2: 51 PM PROCESS DEVELOPMENT TECHNICIAN documented as of this encounter Plan of Treatment Upcoming Encounters Date Type Department Care Team (Late st Contact Info) Description 04/25/2025 1:30 PM CDT Office Visit [facility] [address] [address] Alex Johnson MD [address] [place] [address] documented as of this encounter Visit Diagnoses Not on filedocumented in this encounter Additional Health Concerns Infection Onset Date Last Indicated Resolved Time COVID-19 06/23/2020 06/23/2020 07/14/2020 11:4 0 PM PROCESS DEVELOPMENT TECHNICIAN Recovered COVID 07/08/2020 07/08/2020 09/21/2020 1 1:39 PM PROCESS DEVELOPMENT TECHNICIAN Assessment Noted Time PHQ-9 Depression Total Score: 12 018 7:15 AM CDT documented as of this encounter Care Teams Machine Applicator Cementer Relationship Specialty Start Date End Date Bonny Cooley MD [address] [place] [address] PCP - General Family Practice 09/30/15 06/02/21 Bonny Cooley MD [address] [id number] PCP - Assigned PCP 10/05/15 10/10/18 Aminata Youssef MD [facility] [address] [place] [address] PCP - General Internal Medicine 06/03/21 Bettye Gonzales MD Internal Medicine 04/10/15 Antony Chakraborty MD [address] [address] INTERNAL MEDICINE - ENDOCRINOLOGY, DIABETES & METABOLISM 11/13/15 Mateo Cheema MD [address] [address] Internal Medicine 08/06/16 Ermias Colón MD 420 [facility] [address] [place] [address] Referring Physician Neurology 09/23/16 Suzanne Fernández, RN [facility] Primary Care - CC 02/28/18 [place] [address] [place] [address] Assigned PCP 10/05/15 07/26/20 Pam Hernandez MD [address] [place] [address] [place] [address] Assigned Behavioral Health Provider 05/30/20 08/01/21 Lázaro Horowitz MD [facility] [address] [place] [address] Assigned Rheumatology Provider 05/30/20 07/19/20 Jaime Grover MD [address] [place] [address] Assigned Gastroenterology Provider 05/30/20 11/14/21 Toni Sheth MD [address] [place] [address] Assigned Pediatric Specialist Provider 05/30/20 09/07/20 Toni Sheth MD [address] [place] [address] Assigned Surgical Provider 05/30/20 04/18/21 Bertram Elizabeth MD [address] [address] Assigned PCP 07/27/20 04/25/21 Bonny Cooley MD [address] [place] [address] Assigned PCP 04/26/21 08/15/21 Bertram Elizabeth MD [address] [address] Assigned PCP 08/16/21 10/24/21 Alex Johnson MD [address] [place] [address] Assigned Rheumatology Provider 10/18/21 04/15/23 Bonny Cooley MD [address] [address] Assigned PCP 10/25/21 04/02/22 Bertram Elizabeth MD [address] [address] Assigned PCP 04/03/22 07/23/22 Bertram Elizabeth MD [address] [address] Assigned PCP 10/02/22 04/29/23 Alex Johnson MD [address] [place] [address] Rheumatology 10/04/24 documented as of this encounter
--- OUTSIDE RECORDS SUMMARY | 2024-10-28 14:01 | XMS_ITS | Encounter Summary ---
Author Organization [place] Address [address] [place] [address] Care Team Providers Care Broth Mixer Name Role Phone Bettye Gonzales MD Unavailable + Bonny Cooley MD Primary Care Provider [phone] Antony Chakraborty MD Unavailable Mateo Cheema MD Unavailable [phone] Ermias Colón MD Unavailable Bonny Cooley MD Unavailable [phone] Bonny Cooley MD Unavailable [phone] Pam Hernandez MD Unavailable [phone] Lázaro Horowitz MD Unavailable Jaime Grover MD Unavailable Toni Sheth MD Unavailable Toni Sheth MD Unavailable Bertram Elizabeth MD Unavailable Bonny Cooley MD Unavailable [phone] Aminata Youssef MD Primary Care Provider Bertram Elizabeth MD Unavailable Alex Johnson MD Unavailable Bonny Cooley MD Unavailable [phone] Bertram Elizabeth MD Unavailable Bertram Elizabeth MD Unavailable [phone] Alex Johnson MD Unavailable Reason for Visit * Reason Comments Medication Refill Encounter Details Date Type Department Care Team (Late st Contact Info) Description 10/05/[address] [address] Lázaro Horowitz MD [place] [address] [place] [address] Medication Refill Social History Tobacco Use Types [...] Sex Assigned at Female 08/28/2018 12:23 AM SOCIAL SCIENCE PROFESSOR Legal Sex Female 4:46 AM SOCIAL SCIENCE PROFESSOR Gender Identity Female 08/28/2018 12:23 AM SOCIAL SCIENCE PROFESSOR Sexual Orientation Straight 10/11/2019 2: 51 PM SOCIAL SCIENCE PROFESSOR documented as of this encounter Miscellaneous Notes * Telephone Encounter - Deborah Ellison, [facility] - 10/05/2018 7:33 AM CST Refill request [...] 0.90 08/28/2018 No results found for: URIC AL SCIENCE PROFESSOR documented in this encounter Plan of Treatment Upcoming Encounters Date Type Department Care Team (Late st Contact Info) Description 04/25/2025 1:30 PM CDT Office Visit [facility] [address] [place] [phone] Alex Johnson MD [address] [place] [address] documented as of this encounter Visit Diagnoses Diagnosis Rheumatoid arthritis of multiple sites without rheumatoid factor (H) Rheumatoid arthritis documented in this encounter Additional Health Concerns Infection Onset Date Last Indicated Resolved Time COVID-19 06/23/2020 06/23/2020 07/14/2020 11:4 0 PM SOCIAL SCIENCE PROFESSOR Recovered COVID 07/08/2020 07/08/2020 09/21/2020 1 1:39 PM SOCIAL SCIENCE PROFESSOR Assessment Noted Time PHQ-9 Depression Total Score: 13 018 7:20 AM SOCIAL SCIENCE PROFESSOR documented as of this encounter Care Teams Broth Mixer Relationship Specialty Start Date End Date Bonny Cooley MD [address] [place] [address] PCP - General Family Practice 09/30/15 06/02/21 Bonny Cooley MD 2270 [facility] 200 [place] [address] PCP - Assigned PCP 10/05/15 10/10/18 Aminata Youssef MD [facility] [address] [place] [address] PCP - General Internal Medicine 06/03/21 Bettye Gonzales MD Internal Medicine 04/10/15 Antony Chakraborty MD [address] [place] [address] MD INTERNAL MEDICINE - ENDOCRINOLOGY, DIABETES & METABOLISM 11/13/15 Mateo Cheema MD [address] [address] Internal Medicine 08/06/16 Ermias Colón MD [address] [address] Referring Physician Neurology 09/23/16 Bonny Cooley MD [address] [address] Assigned PCP 10/05/15 07/26/20 Pam Hernandez MD [address] [place] [address] MALLY LYNNE [address] Assigned Behavioral Health Provider 05/30/20 08/01/21 Lázaro Horowitz MD [facility] [address] [place] [address] Assigned Rheumatology Provider 05/30/20 07/19/20 Jaime Grover MD [address] [place] [address] Assigned Gastroenterology Provider 05/30/20 11/14/21 Toni Sheth MD [address] [place] [address] Assigned Pediatric Specialist Provider 05/30/20 09/07/20 Toni Sheth MD [address] [place] [address] Assigned Surgical Provider 05/30/20 04/18/21 Bertram Elizabeth MD [facility] [address] [address] Assigned PCP 07/27/20 04/25/21 Bonny Cooley MD [address] [place] [address] Assigned PCP 04/26/21 08/15/21 Bertram Elizabeth MD [address] [place] [address] Assigned PCP 08/16/21 10/24/21 Alex Johnson MD [address] [place] [address] Assigned Rheumatology Provider 10/18/21 04/15/23 Bonny Cooley MD [facility] [address] [address] Assigned PCP 10/25/21 04/02/22 Bertram Elizabeth MD [address] [address] Assigned PCP 04/03/22 07/23/22 Bertram Elizabeth MD [address] [address] Assigned PCP 10/02/22 04/29/23 Alex Johnson MD [address] [place] [address] MD Guzman 10/04/24 documented as of this encounter
--- OUTSIDE RECORDS SUMMARY | 2024-10-28 14:01 | XMS_ITS | Encounter Summary ---
Author Organization [place] Address [address] [place] [address] Care Team Providers Care Personal Driver Name Role Phone Bettye Gonzales MD Unavailable + Bonny Cooley MD Primary Care Provider Antony Chakraborty MD Unavailable + [phone] Mateo Cheema MD Unavailable [phone] Ermias Colón MD Unavailable Pam Hernandez MD Unavailable Jaime Grover MD Unavailable [phone] Toni Sheth MD Unavailable Bertram Elizabeth MD Unavailable Bonny Cooley MD Unavailable [phone] Aminata Youssef MD Primary Care Provider Bertram Elizabeth MD Unavailable Alex Johnson MD Unavailable Bonny Cooley MD Unavailable [phone] Bertram Elizabeth MD Unavailable Bertram Elizabeth MD Unavailable Alex Jonhson MD Unavailable Reason for Visit * Reason Comments Medication Refill Encounter Details Date Type Department Care Team (Late st Contact Info) Description 03/04/2021 Refill [facility] [address] [place] [phone] Bonny Cooley MD 2270 [facility] 200 [place], [place] [id number] Medication Refill Social History Tobacco Use Types [...] Sex Assigned at Female 08/28/2018 12:23 AM DIRECTOR GLOBAL INTELLIGENCE Legal Sex Female 4:46 AM DIRECTOR GLOBAL INTELLIGENCE Gender Identity Female 08/28/2018 12:23 AM DIRECTOR GLOBAL INTELLIGENCE Sexual Orientation Straight 10/11/2019 2: 51 PM DIRECTOR GLOBAL INTELLIGENCE documented as of this encounter Miscellaneous Notes * Telephone Encounter - Bonny Cooley MD - 03/09/2021 4:39 PM CDT Per previosu my chart - will establish care at [facility]. DM * Telephone Encounter - Katlin Madrid, [facility] - 03/09/2021 10:[address] Cooley-Naomie refill given and patient did not follow up. #30 pended. Team Coordinators-Please contact patient to schedule annual physical. Thank you! MARY KATE Carr, RN [facility] documented in this encounter Plan of Treatment Upcoming Encounters Date Type Department Care Team (Late st Contact Info) Description 04/25/2025 1:30 PM CDT Office Visit [facility] [place] [address] [facility] 200 [place] [phone] Alex Johnson MD 515 [facility] 88 [place], [place] [address] documented as of this encounter Visit Diagnoses Diagnosis Essential hypertension with goal blood pressure less than 140/90 documented in this encounter Additional Health Concerns Assessment Noted Time PHQ-9 Depression Total Score: 11 020 2:18 PM CDT documented as of this encounter Care Teams Personal Driver Relationship Specialty Start Date End Date Bonny Cooley MD [address] [place] [address] PCP - General Family Practice 09/30/15 06/02/21 Aminata Youssef MD [facility] [address] [place] [address] PCP - General Internal Medicine 06/03/21 Bettye Gonzales MD Internal Medicine 04/10/15 Antony Chakraborty MD 420 [facility] [address] [place] [address] INTERNAL MEDICINE - ENDOCRINOLOGY, DIABETES & METABOLISM 11/13/15 Mateo Cheema MD 420 [facility] [address] [place] [address] Internal Medicine 08/06/16 Ermias Colón MD 420 [facility] [address] [place] [address] Referring Physician Neurology 09/23/16 Pam Hernandez MD [address] [place] [address] [place] [address] Assigned Behavioral Health Provider 05/30/20 08/01/21 Jaime Grover MD [address] [place] [address] Assigned Gastroenterology Provider 05/30/20 11/14/21 Toni Sheth MD [address] [place] [address] Assigned Surgical Provider 05/30/20 04/18/21 Bertram Elizabeth MD [address] [address] Assigned PCP 07/27/20 04/25/21 Bonny Cooley MD [address] [address] Assigned PCP 04/26/21 08/15/21 Bertram Elizabeth MD [address] [address] Assigned PCP 08/16/21 10/24/21 Alex Johnson MD [address] [place] [address] Assigned Rheumatology Provider 10/18/21 9 [place] [address] [place] [address] Assigned PCP 10/25/21 04/02/22 [place] [address] [place] [address] Assigned PCP 04/03/22 07/23/22 [place] [address] [place] [address] Assigned PCP 10/02/22 04/29/23 Alex Johnson MD [address] [place] [address] Rheumatology 10/04/24 documented as of this encounter
--- OUTSIDE RECORDS SUMMARY | 2024-10-28 14:01 | XMS_ITS | Encounter Summary ---
Author Organization [place] Address [address] [place] [address] Care Team Providers Care Electroplating Worker Name Role Phone Bettye Gonzales MD Unavailable + Bonny Cooley MD Primary Care Provider [phone] Antony Chakraborty MD Unavailable Mateo Cheema MD Unavailable [phone] Ermias Colón MD Unavailable Suzanne Fernández RN Unavailable [phone] Bonny Cooley MD Unavailable [phone] Bonny Cooley MD Unavailable [phone] Pam Hernandez MD Unavailable [phone] Lázaro Horowitz MD Unavailable Jaime Grover MD Unavailable Toni Sheth MD Unavailable Toni Sheth MD Unavailable Bertram Elizabeth MD Unavailable [phone] Bonny Cooley MD Unavailable [phone] Aminata Youssef MD Primary Care Provider Bertram Elizabeth MD Unavailable +[phone] Alex Johnson MD Unavailable [phone] Bonny Cooley MD Unavailable +[phone] Bertram Elizabeth MD Unavailable [phone] Bertram Elizabeth MD Unavailable +[phone] Alex Johnson MD Unavailable [phone] Encounter Details Date Type Department Care Team (Late st Contact Info) Description 02/15/2018 MyC Medical Advice [facility] [address] [address] Ermias Colón MD [address] [place], [place] [id number] Social History Tobacco Use Types Packs/Day Years Used Date Smoking Tobacco: Former Cigarettes 2 3 0 04/23/1976 - 12/17/1977 Smokeless Tobacco: Never Alcohol Use Standard Drinks/Week Comments No 0 (1 standard drink = 0.6 oz pur e alcohol) Comments No Sex and Gender Information Value Date Recorded Sex Assigned at Female 08/28/2018 12:23 AM BIOLOGY DEPARTMENT CHAIR Legal Sex Female 4:46 AM BIOLOGY DEPARTMENT CHAIR Gender Identity Female 08/28/2018 12:23 AM BIOLOGY DEPARTMENT CHAIR Sexual Orientation Straight 10/11/2019 2: 51 PM BIOLOGY DEPARTMENT CHAIR documented as of this encounter Miscellaneous Notes * Telephone Encounter - Nolvia Townsned RN - 02/15/2018 2:13 PM CDT Pt notified that this was refilled. MARY KATE Lorenzana, RN [facility] documented in this encounter Plan of Treatment Upcoming Encounters Date Type Department Care Team (Late st Contact Info) Description 04/25/2025 1:30 PM CDT Office Visit [facility] [place] [address] [facility] 200 [place] [phone] Alex Johnson MD 515 [facility] 88 [place] [address] documented as of this encounter Visit Diagnoses Not on filedocumented in this encounter Additional Health Concerns Infection Onset Date Last Indicated Resolved Time COVID-19 06/23/2020 06/23/2020 07/14/2020 11:4 0 PM BIOLOGY DEPARTMENT CHAIR Recovered COVID 07/08/2020 07/08/2020 09/21/2020 1 1:39 PM BIOLOGY DEPARTMENT CHAIR Assessment Noted Time PHQ-9 Depression Total Score: 12 018 7:15 AM CDT documented as of this encounter Care Teams Electroplating Worker Relationship Specialty Start Date End Date Bonny Cooley MD [address] [place] [address] PCP - General Family Practice 09/30/15 06/02/21 Bonny Cooley MD 2270 [facility] 200 [place] [address] PCP - Assigned PCP 10/05/15 10/10/18 Aminata Youssef MD [facility] [address] [place] [address] PCP - General Internal Medicine 06/03/21 Bettye Gonzales MD Internal Medicine 04/10/15 Antony Chakraborty MD 420 [facility] 101 [place] [address] INTERNAL MEDICINE - ENDOCRINOLOGY, DIABETES & METABOLISM 11/13/15 Mateo Cheema MD [address] [address] Internal Medicine 08/06/16 Ermias Colón MD [address] [address] Referring Physician Neurology 09/23/16 Suzanne Fernández, [facility] [employer] Sales Primary Care - CC 02/28/18 Bonny Cooley MD [address] [address] Assigned PCP 10/05/15 07/26/20 Pam Hernandez MD [address] [place] [address] Assigned Behavioral Health Provider 05/30/20 08/01/21 Lázaro Horowitz MD [facility] [address] [place], [place] [address] Assigned Rheumatology Provider 05/30/20 07/19/20 Jaime Grover MD 909 [place] [address] Assigned Gastroenterology Provider 05/30/20 11/14/21 Toni Sheth MD [address] [place] [address] Assigned Pediatric Specialist Provider 05/30/20 09/07/20 Toni Sheth MD [address] [place] [address] Assigned Surgical Provider 05/30/20 04/18/21 Bertram Elizabeth MD [address] [address] Assigned PCP 07/27/20 04/25/21 Bonny Cooley MD [address] [address] Assigned PCP 04/26/21 08/15/21 Bertram Elizabeth MD [address] [place] [address] Assigned PCP 08/16/21 10/24/21 Alex Johnson MD [address] [place] [address] Assigned Rheumatology Provider 10/18/21 04/15/23 Bonny Cooley MD [address] [place] [address] Assigned PCP 10/25/21 04/02/22 Bertram Elizabeth MD [address] [place] [address] Assigned PCP 04/03/22 07/23/22 Bertram Elizabeth MD [address] [place] [address] Assigned PCP 10/02/22 04/29/23 Alex Johnson MD [address] [place] [address] Rheumatology 10/04/24 documented as of this encounter
--- OUTSIDE RECORDS SUMMARY | 2024-10-28 14:01 | XMS_ITS | Encounter Summary ---
Author Organization [place] Address [address] [place] [address] Care Team Providers Care Risk Investigator Name Role Phone Bettye Gonzales MD Unavailable + Bonny Cooley MD Primary Care Provider Antony Chakraborty MD Unavailable + [phone] Mateo Cheema MD Unavailable [phone] Ermias Colón MD Unavailable Pam Hernandez MD Unavailable Jaime Grover MD Unavailable Bonny Cooley MD Unavailable [phone] Aminata Youssef MD Primary Care Provider Bertram Elizabeth MD Unavailable Alex Johnson MD Unavailable Bonny Cooley MD Unavailable [phone] Bertram Elizabeth MD Unavailable Bertram Elizabeth MD Unavailable Alex Johnson MD Unavailable Reason for Visit * Reason Comments Medication Refill Encounter Details Date Type Department Care Team (Late st Contact Info) Description 05/11/2021 Refill [facility] [address] [facility] [place] [phone] Bonny Cooley MD 2270 [facility] 200 [place] [address] Medication Refill Social History Tobacco Use Types [...] Assigned at Female 08/28/2018 12:23 AM MANAGER STUDY Legal Sex Female 4:46 AM MANAGER STUDY Gender Identity Female 08/28/2018 12:23 AM MANAGER STUDY Sexual Orientation Straight 10/11/2019 2: 51 PM MANAGER STUDY documented as of this encounter Miscellaneous Notes * Telephone Encounter - Alicia Ross RN - 05/14/2021 12:58 PM CDT Refusing: patient established care with new provider in [place] MARY KATE Liu RN [facility] documented in this encounter Plan of Treatment Upcoming Encounters Date Type Department Care Team (Late st Contact Info) Description 04/25/2025 1:30 PM CDT Office Visit [facility] [address] 200 [place] [phone] Alex Johnson MD [address] [place] [address] documented as of this encounter Visit Diagnoses Diagnosis Major depressive disorder, recurrent episode, moderate (H) Major depressive disorder, recurrent episode, moderate documented in this encounter Additional Health Concerns Assessment Noted Time PHQ-9 Depression Total Score: 11 020 2:18 PM CDT documented as of this encounter Care Teams Risk Investigator Relationship Specialty Start Date End Date Bonny Cooley MD [address] [place] [address] PCP - General Family Practice 09/30/15 06/02/[address] [facility] & [address] [address] PCP - General Internal Medicine 06/03/21 Bettye Gonzales MD MD Internal Medicine 04/10/15 Antony Chakraborty MD [address] [address] MD INTERNAL MEDICINE - ENDOCRINOLOGY, DIABETES & METABOLISM 11/13/15 Mateo Cheema MD [address] 2764[address] Internal Medicine 08/06/16 Ermias Colón MD [address] [address] Referring Physician Neurology 09/23/16 Pam Hernandez MD [address] [place] [address] [address] [place] [id number] Assigned Behavioral Health Provider 05/30/20 08/01/21 Jaime Grover MD [address] [place] [address] Assigned Gastroenterology Provider 05/30/20 11/14/21 Bonny Cooley MD [address] [address] Assigned PCP 04/26/21 08/15/21 Bertram Elizabeth MD [address] [address] Assigned PCP 08/16/21 10/24/21 Alex Johnson MD [address] [place] [address] Assigned Rheumatology Provider 10/18/21 04/15/23 Bonny Cooley MD [address] [address] Assigned PCP 10/25/21 04/02/22 Bertram Elizabeth MD [address] [address] Assigned PCP 04/03/22 07/23/22 Bertram Elizabeth MD [address] [address] Assigned PCP 10/02/22 04/29/23 Alex Johnson MD [address] [place] [address] Rheumatology 10/04/24 documented as of this encounter
--- OUTSIDE RECORDS SUMMARY | 2024-10-28 14:01 | XMS_ITS | Encounter Summary ---
Author Organization [place] Address [address] [place] [address] Care Team Providers Care Director Of Knowledge Management Name Role Phone Bettye Gonzales MD Unavailable + Bonny Cooley MD Primary Care Provider Antony Chakraborty MD Unavailable [phone] Mateo Cheema MD Unavailable Ermias Colón MD Unavailable Bonny Cooley MD Unavailable [phone] Pam Hernandez MD Unavailable Lzáaro Horowitz MD Unavailable Jaime Grover MD Unavailable Toni Sheth MD Unavailable Toni Sheth MD Unavailable Bertram Elizabeth MD Unavailable [phone] Bonny Cooley MD Unavailable Aminata Youssef MD Primary Care Provider [phone] Bertram Elizabeth MD Unavailable [phone] Alex Johnson MD Unavailable [phone] Bonny Cooley MD Unavailable [phone] Bertram Elizabeth MD Unavailable [phone] Bertram Elizabeth MD Unavailable [phone] Alex Johnson MD Unavailable [phone] Encounter Details Date Type Department Care Team (Late st Contact Info) Description 05/24/2019 MyC Medical Advice [facility] Rheumatology Clinic [address] [address] Toni Del Angel MD [facility] 420 [facility] 284 [place] [address] Social History Tobacco Use Types [...] Sex Assigned at Female 08/28/2018 12:23 AM ENVIRONMENTAL CONSULTANT Legal Sex Female 4:46 AM ENVIRONMENTAL CONSULTANT Gender Identity Female 08/28/2018 12:23 AM ENVIRONMENTAL CONSULTANT Sexual Orientation Straight 10/11/2019 2: 51 PM ENVIRONMENTAL CONSULTANT documented as of this encounter Plan of Treatment Upcoming Encounters Date Type Department Care Team (Late st Contact Info) Description 04/25/2025 1:30 PM CDT Office Visit [facility] Specialty Clinic [address] [address] Alex Johnson MD [address] [place] [address] documented as of this encounter Visit Diagnoses Not on filedocumented in this encounter Additional Health Concerns Infection Onset Date Last Indicated Resolved Time COVID-19 06/23/2020 06/23/2020 07/14/2020 11:4 0 PM ENVIRONMENTAL CONSULTANT Recovered COVID 07/08/2020 07/08/2020 09/21/2020 1 1:39 PM ENVIRONMENTAL CONSULTANT Assessment Noted Time PHQ-9 Depression Total Score: 11 019 2:53 PM CDT documented as of this encounter Care Teams Director Of Knowledge Management Relationship Specialty Start Date End Date Bonny Cooley MD [address] [place] [address] PCP - General Family Practice 09/30/15 06/02/[address] [facility] 2000 [place] [address] PCP - General Internal Medicine 06/03/21 Bettye Gonzales MD MD Internal Medicine 04/10/15 Antony Chakraborty MD [address] [address] MD INTERNAL MEDICINE - ENDOCRINOLOGY, DIABETES & METABOLISM 11/13/15 Mateo Cheema MD [address] [address] Internal Medicine 08/06/16 Ermias Colón MD [address] [address] Referring Physician Neurology 09/23/16 [place] [address] [place] [address] Assigned PCP 10/05/15 07/26/20 Pam Hernandez MD [address] [place] [address] [place] [id number] Assigned Behavioral Health Provider 05/30/20 08/01/21 Lázaro Horowitz MD [facility] [address] [place] [address] Assigned Rheumatology Provider 05/30/20 07/19/20 Jaime Grover MD [address] [place] [address] Assigned Gastroenterology Provider 05/30/20 11/14/21 Toni Sheth MD [address] [place] [address] Assigned Pediatric Specialist Provider 05/30/20 09/07/20 Toni Sheth MD [address] [place] [address] Assigned Surgical Provider 05/30/20 04/18/21 Bertram Elizabeth MD [address] [place] [address] Assigned PCP 07/27/20 04/25/21 Bonny Cooley MD [address] [place] [address] Assigned PCP 04/26/21 08/15/21 Bertram Elizabeth MD [address] [place] [address], [place] [address] Assigned PCP 08/16/21 10/24/21 Alex Johnson MD [address] [place] [address] Assigned Rheumatology Provider 10/18/21 04/15/23 Bonny Cooley MD [address] [address] Assigned PCP 10/25/21 04/02/22 Bertram Elizabeth MD [address] [address] Assigned PCP 04/03/22 07/23/22 Bertram Elizabeth MD [address] [address] Assigned PCP 10/02/22 04/29/23 Alex Johnson MD [address] [place] [address] Rheumatology 10/04/24 documented as of this encounter
--- OUTSIDE RECORDS SUMMARY | 2024-10-28 14:01 | XMS_ITS | Encounter Summary ---
Author Organization [place] Address [address] [place] [address] Care Team Providers Care Field Superintendent Name Role Phone Bettye Gonzales MD Unavailable + Bonny Cooley MD Primary Care Provider Antony Chakraborty MD Unavailable Mateo Cheema MD Unavailable [phone] Ermias Colón MD Unavailable Suzanne Fernández RN Unavailable [phone] Bonny Cooley MD Unavailable [phone] Bonny Cooley MD Unavailable [phone] Pam Hernandez MD Unavailable [phone] Lázaro Horowitz MD Unavailable Jaime Grover MD Unavailable Toni Sheth MD Unavailable Toni Sheth MD Unavailable Bertram Elizabeth MD Unavailable Bonny Cooley MD Unavailable [phone] Aminata Youssef MD Primary Care Provider Bertram Elizabeth MD Unavailable [phone] Alex Johnson MD Unavailable Bonny Cooley MD Unavailable Bertram Elizabeth MD Unavailable [phone] Bertram Elizabeth MD Unavailable [phone] Alex Johnson MD Unavailable Encounter Details Date Type Department Care Team (Late st Contact Info) Description 02/11/2018 MyC Medical Advice [address] [phone] Kathryn Brenner Social History Tobacco Use Types Packs/Day Years Used Date Smoking Tobacco: Former Cigarettes 2 3 0 04/23/1976 - 12/17/1977 Smokeless Tobacco: Never Alcohol Use Standard Drinks/Week Comments No 0 (1 standard drink = 0.6 oz pur e alcohol) Comments No Sex and Gender Information Value Date Recorded Sex Assigned at Female 08/28/2018 12:23 AM FIRE EXTINGUISHER MECHANIC Legal Sex Female 4:46 AM FIRE EXTINGUISHER MECHANIC Gender Identity Female 08/28/2018 12:23 AM FIRE EXTINGUISHER MECHANIC Sexual Orientation Straight 10/11/2019 2: 51 PM FIRE EXTINGUISHER MECHANIC documented as of this encounter Plan of Treatment Upcoming Encounters Date Type Department Care Team (Late st Contact Info) Description 04/25/2025 1:30 PM CDT Office Visit [facility] [address] [address] Alex Johnson MD [address] [place] [address] documented as of this encounter Visit Diagnoses Not on filedocumented in this encounter Additional Health Concerns Infection Onset Date Last Indicated Resolved Time COVID-19 06/23/2020 06/23/2020 07/14/2020:4 0 PM FIRE EXTINGUISHER MECHANIC Recovered COVID 07/08/2020 07/08/2020 09/21/2020 1 1:39 PM FIRE EXTINGUISHER MECHANIC Assessment Noted Time PHQ-9 Depression Total Score: 12 018 7:15 AM CDT documented as of this encounter Care Teams Field Superintendent Relationship Specialty Start Date End Date oBnny Cooley MD [address] [place] [address] PCP - General Family Practice 09/30/15 06/02/21 Bonny Cooley MD [address] [id number] PCP - Assigned PCP 10/05/15 10/10/18 Aminata Youssef MD [facility] & [address] [address] PCP - General Internal Medicine 06/03/21 Bettye Gonzales MD Internal Medicine 04/10/15 Antony Chakraborty MD [address] [place] [address] [address] INTERNAL MEDICINE - ENDOCRINOLOGY, DIABETES & METABOLISM 11/13/15 Mateo Cheema MD [address] [place] [address] [address] Internal Medicine 08/06/16 Ermias Colón MD [address] [place] [address] [address] Referring Physician Neurology 09/23/16 Suzanne Fernández, RN Clinic Office Machine Repair Shop Supervisor Primary Care - CC 02/28/18 Bonny Cooley MD [address] [address] Assigned PCP 10/05/15 07/26/20 Pam Hernandez MD [address] [place] [address] [place] [address] Assigned Behavioral Health Provider 05/30/20 08/01/21 Lázaro Horowitz MD [address] [address] Assigned Rheumatology Provider 05/30/20 07/19/20 Jaime Grover MD [address] [place] [address] Assigned Gastroenterology Provider 05/30/20 11/14/21 Toni Sheth MD [address] [place] [address] Assigned Pediatric Specialist Provider 05/30/20 09/07/20 [place] [address] [place] [address] Assigned Surgical Provider 05/30/20 04/18/21 Bertram Elizabeth MD [address] [address] Assigned PCP 07/27/20 04/25/21 Bonny Cooley MD 0 [facility] 200 [place] [address] Assigned PCP 04/26/21 08/15/21 Bertram Elizabeth MD 0 [facility] 200 [place] [address] Assigned PCP 08/16/21 10/24/21 Alex Johnson MD [address] [place] [address] Assigned Rheumatology Provider 10/18/21 04/15/23 Bonny Cooley MD [address] [place] [address] Assigned PCP 10/25/21 04/02/22 Bertram Elizabeth MD [address] [place] [address] Assigned PCP 04/03/22 07/23/22 Bertram Elizabeth MD [address] [address] Assigned PCP 10/02/22 04/29/23 Alex Johnson MD [address] [place] [address] Rheumatology 10/04/24 documented as of this encounter
--- NOTE | 2024-10-28 14:11 | CRLHL7_ITS ---
For Patients: As a result of the Cures Act, medical imaging exams and procedure reports are released immediately into your electronic medical record. You may view this report before your referring provider. If you have questions, please contact your health care provider. INDICATION: COUGH, SOB, UPPER BACK PAIN. TECHNIQUE: Chest 2 views. COMPARISON: None. FINDINGS: Cardiovascular and mediastinum: Cardiomediastinal silhouette is within normal limits Lungs and pleural spaces: Lungs are clear. Blunting of the left CP angle concerning for left-sided pleural effusion.. No pneumothorax. Bones and soft tissues: No significant findings. IMPRESSION: Left CP angle blunting may be related to pleural effusion or pleural thickening.. Dictated by Sharmila Leigh MD @ 10/28/2024 3:25:09 PM (Electronically Signed)
[2024-10-28] MEDS: ASPIRIN 81 MG TAB.CHEW 324 MG PO (14:37)
--- OUTSIDE RECORDS SUMMARY | 2024-10-28 14:50 | XMS_ITS | Encounter Summary ---
Author Organization [place] Address [address] [place] [address] Care Team Providers Care Coremaker Bench Name Role Phone Bettye Gonzales MD Unavailable + Bonny Cooley MD Primary Care Provider Antony Chakraborty MD Unavailable + [phone] Mateo Cheema MD Unavailable [phone] Ermias Colón MD Unavailable Pam Hernandez MD Unavailable Jaime Grover MD Unavailable Toni Sheth MD Unavailable Betrram Elizabeth MD Unavailable Bonny Cooley MD Unavailable [phone] Aminata Youssef MD Primary Care Provider [phone] Bertram Elizabeth MD Unavailable [phone] Alex Johnson MD Unavailable Bonny Cooley MD Unavailable [phone] Bertram Elizabeth MD Unavailable Bertram Elizabeth MD Unavailable [phone] Alex Johnson MD Unavailable Encounter Details Date Type Department Care Team (Late st Contact Info) Description 01/12/[address] [facility] [address] [place] [address] Bonny Cooley MD 2270 [facility] 200 [place] [address] Social History Tobacco Use Types [...] Assigned at Female 08/28/2018 12:23 AM ELECTRONIC SERVICE TECHNICIAN Legal Sex Female 4:46 AM ELECTRONIC SERVICE TECHNICIAN Gender Identity Female 08/28/2018 12:23 AM ELECTRONIC SERVICE TECHNICIAN Sexual Orientation Straight 10/11/2019 2: 51 PM ELECTRONIC SERVICE TECHNICIAN documented as of this encounter Miscellaneous Notes * Telephone Encounter - Henrietta Gilliland RN - 01/13/2021 1:22 PM CDT [facility]. Patient needs medical records. Patient given number. Thanks! Henrietta Gilliland RN documented in this encounter Plan of Treatment Upcoming Encounters Date Type Department Care Team (Late st Contact Info) Description 04/25/2025 1:30 PM CDT Office Visit [facility] [address] [phone] Alex Johnson MD [address] [place] [address] documented as of this encounter Visit Diagnoses Not on filedocumented in this encounter Additional Health Concerns Assessment Noted Time PHQ-9 Depression Total Score: 11 020 2:18 PM CDT documented as of this encounter Care Teams Coremaker Bench Relationship Specialty Start Date End Date Bonny Cooley MD [address] [place] [address] PCP - General Family Practice 09/30/15 06/02/21 Aminata Youssef MD [facility] - [address] [address] PCP - General Internal Medicine 06/03/21 Bettye Gonzales MD MD Internal Medicine 04/10/15 Antony Chakraborty MD [address] [address] MD INTERNAL MEDICINE - ENDOCRINOLOGY, DIABETES & METABOLISM 11/13/15 Mateo Cheema MD [address] 9[address] Internal Medicine 08/06/16 Ermias Colón MD [address] [address] Referring Physician Neurology 09/23/16 Pam Hernandez MD [address] [place] [address] [place] [address] Assigned Behavioral Health Provider 05/30/20 08/01/21 Jaime Grover MD [address] [place] [address] Assigned Gastroenterology Provider 05/30/20 11/14/21 [place] [address] [place] [address] Assigned Surgical Provider 05/30/20 04/18/21 Bertram Elizabeth MD [address] [address] Assigned PCP 07/27/20 04/25/21 Bonny Cooley MD [address] [address] Assigned PCP 04/26/21 08/15/21 Bertram Elizabeth MD [address] [address] Assigned PCP 08/16/21 10/24/21 Alex Johnson MD [address] [place] [address] Assigned Rheumatology Provider 10/18/21 04/15/23 Bonny Cooley MD [address] [address] Assigned PCP 10/25/21 04/02/22 Bertram Elizabeth MD [address] [address] Assigned PCP 04/03/22 07/23/22 Bertram Elizabeth MD [address] [address] Assigned PCP 10/02/22 04/29/23 Alex Johnson MD [address] [place] [address] Rheumatology 10/04/24 documented as of this encounter
--- OUTSIDE RECORDS SUMMARY | 2024-10-28 14:50 | XMS_ITS | Encounter Summary ---
Author Organization [facility] Address [address] [place] [address] Care Team Providers Care Photographic Machine Operator Name Role Phone Bettye Gonzales MD Unavailable + Bonny Cooley MD Primary Care Provider Antony Chakraborty MD Unavailable Mateo Cheema MD Unavailable Ermias Colón MD Unavailable Bonny Cooley MD Unavailable [phone] Pam Hernandez MD Unavailable [phone] Lázaro Horowitz MD Unavailable Jaime Grover MD Unavailable Toni Sheth MD Unavailable Toni Sheth MD Unavailable Bertram Elizabeth MD Unavailable [phone] Bonny Cooley MD Unavailable [phone] Aminata Youssef MD Primary Care Provider Bertram Elizabeth MD Unavailable Alex Johnson MD Unavailable Bonny Cooley MD Unavailable [phone] Bertram Elizabeth MD Unavailable [phone] Bertram Elizabeth MD Unavailable [phone] Alex Johnson MD Unavailable Encounter Details Date Type Department Care Team (Late st Contact Info) Description 07/02/2020 MyC Medical Advice [facility] [address] [facility] 5th [place] [address] Adriane Parish RN Social History [...] Sex Assigned at Female 08/28/2018 12:23 AM ROTARY DRIER Legal Sex Female 4:46 AM ROTARY DRIER Gender Identity Female 08/28/2018 12:23 AM ROTARY DRIER Sexual Orientation Straight 10/11/2019 2: 51 PM ROTARY DRIER COVID-19 Exposure Response Date Recorded In the last month, have you been in contact with someone who was confirmed or suspected to have Coronavirus / COVID-19? No / Unsure 06/23/2020 10:33 AM ROTARY DRIER documented as of this encounter Plan of Treatment Upcoming Encounters Date Type Department Care Team (Late st Contact Info) Description 04/25/2025 1:30 PM CDT Office Visit [facility] [address] [address] Alex Johnson MD [address] [place] [address] documented as of this encounter Visit Diagnoses Not on filedocumented in this encounter Additional Health Concerns Infection Onset Date Last Indicated Resolved Time COVID-19 06/23/2020 06/23/2020 07/14/2020 11:4 0 PM ROTARY DRIER Recovered COVID 07/08/2020 07/08/2020 09/21/2020 1 1:39 PM ROTARY DRIER Assessment Noted Time PHQ-9 Depression Total Score: 11 020 2:18 PM CDT documented as of this encounter Care Teams Photographic Machine Operator Relationship Specialty Start Date End Date Bonny Cooley MD [address] [place] [address] PCP - General Family Practice 09/30/15 06/02/21 Aminata Youssef MD [facility] [address] [place] [address] PCP - General Internal Medicine 06/03/21 Bettye Gonzales MD MD Internal Medicine 04/10/15 Antony Chakraborty MD [address] [id number] INTERNAL MEDICINE - ENDOCRINOLOGY, DIABETES & METABOLISM 11/13/15 Mateo Cheema MD [address] 0595[address] Internal Medicine 08/06/16 Ermias Colón MD [address] 817415 Referring Physician Neurology 09/23/16 Bonny Cooley MD [address] [address] Assigned PCP 10/05/15 07/26/20 Pam Hernandez MD [address] [place] [address] MALLY LYNNE [address] Assigned Behavioral Health Provider 05/30/20 08/01/21 Lázaro Horowitz MD [place] [address] [place] [address] Assigned Rheumatology Provider 05/30/20 07/19/20 Jaime Grover MD [address] [place] [address] Assigned Gastroenterology Provider 05/30/20 11/14/21 Toni Sheth MD [address] [place] [address] Assigned Pediatric Specialist Provider 05/30/20 09/07/20 Toni Sheth MD [address] [place] [address] Assigned Surgical Provider 05/30/20 04/18/21 Bertram Elizabeth MD [address] [place] [address] Assigned PCP 07/27/20 04/25/21 Bonny Cooley MD [address] [address] Assigned PCP 04/26/21 08/15/21 Bertram Elizabeth MD 0 [facility] [address] [place] [address] Assigned PCP 08/16/21 10/24/21 Alex Johnson MD [address] [address] Assigned Rheumatology Provider 10/18/21 04/15/23 Bonny Cooley MD [address] [address] Assigned PCP 10/25/21 04/02/22 Bertram Elizabeth MD [address] [address] Assigned PCP 04/03/22 07/23/22 Bertram Elizabeth MD [address] [address] Assigned PCP 10/02/22 04/29/23 Alex Johnson MD [address] [place] [address] Rheumatology 10/04/24 documented as of this encounter
--- OUTSIDE RECORDS SUMMARY | 2024-10-28 14:50 | XMS_ITS | Encounter Summary ---
Author Organization [facility] Address [address] [place] [address] Care Team Providers Care Placement Secretary Name Role Phone Bettye Gonzales MD Unavailable + Bonny Cooley MD Primary Care Provider [phone] Antony Chakraborty MD Unavailable [phone] Mateo Cheema MD Unavailable [phone] Ermias Colón MD Unavailable Bonny Cooley MD Unavailable [phone] Pam Hernandez MD Unavailable [phone] Lázaro Horowitz MD Unavailable Jaime Grover MD Unavailable Toni Sheth MD Unavailable Toni Sheth MD Unavailable Bertram Elizabeth MD Unavailable [phone] Bonny Cooley MD Unavailable [phone] Aminata Youssef MD Primary Care Provider Bertram Elizabeth MD Unavailable [phone] Alex Johnson MD Unavailable Bonny Cooley MD Unavailable Bertram Elizabeth MD Unavailable [phone] Bertram Elizabeth MD Unavailable [phone] Alex Johnson MD Unavailable Encounter Details Date Type Department Care Team (Late st Contact Info) Description 06/27/2020 [facility] Medical Advice Adult Call Center [address] [place] [address] Keyona Carter Social History Tobacco Use [...] Sex Assigned at Female 08/28/2018 12:23 AM STUDIO DESIGNER Legal Sex Female 4:46 AM STUDIO DESIGNER Gender Identity Female 08/28/2018 12:23 AM STUDIO DESIGNER Sexual Orientation Straight 10/11/2019 2: 51 PM STUDIO DESIGNER COVID-19 Exposure Response Date Recorded In the last month, have you been in contact with someone who was confirmed or suspected to have Coronavirus / COVID-19? No / Unsure 06/23/2020 10:33 AM STUDIO DESIGNER documented as of this encounter Plan of Treatment Upcoming Encounters Date Type Department Care Team (Late st Contact Info) Description 04/25/2025 1:30 PM CDT Office Visit [facility] [address] [place] [address] Alex Johnson MD [address] [place] [address] documented as of this encounter Visit Diagnoses Not on filedocumented in this encounter Additional Health Concerns Infection Onset Date Last Indicated Resolved Time COVID-19 06/23/2020 06/23/2020 07/14/2020 11:4 0 PM STUDIO DESIGNER Recovered COVID 07/08/2020 07/08/2020 09/21/2020 1 1:39 PM STUDIO DESIGNER Assessment Noted Time PHQ-9 Depression Total Score: 11 020 2:18 PM CDT documented as of this encounter Care Teams Placement Secretary Relationship Specialty Start Date End Date Bonny Cooley MD [address] [place] [address] PCP - General Family Practice 09/30/15 06/02/21 Aminata Youssef MD [facility] [address] [place] [address] PCP - General Internal Medicine 06/03/21 Bettye Gonzales MD MD Internal Medicine 04/10/15 Antony Chakraborty MD [address] [address] INTERNAL MEDICINE - ENDOCRINOLOGY, DIABETES & METABOLISM 11/13/15 Mateo Cheema MD [address] [address] Internal Medicine 08/06/16 Ermias Colón MD [address] [address] Referring Physician Neurology 09/23/16 [place] [address] [place] [address] Assigned PCP 10/05/15 07/26/20 Pam Hernandez MD [address] [place] [address] [place] [address] Assigned Behavioral Health Provider 05/30/20 08/01/21 Lázaro Horowitz MD [facility] [address] [place] [address] Assigned Rheumatology Provider 05/30/20 07/19/20 Jaime Grover MD [address] [place] [address] Assigned Gastroenterology Provider 05/30/20 11/14/21 Toni Sheth MD [address] [place] [address] Assigned Pediatric Specialist Provider 05/30/20 09/07/20 Toni Sheth MD [address] [place] [address] Assigned Surgical Provider 05/30/20 04/18/21 Bertram Elizabeth MD [address] [place] [address] Assigned PCP 07/27/20 04/25/21 Bonny Cooley MD [address] [place] [address] Assigned PCP 04/26/21 08/15/21 Bertram Elizabeth MD [address] [place] [address] Assigned PCP 08/16/21 10/24/21 Alex Johnson MD [address] [place] [address] Assigned Rheumatology Provider 10/18/21 04/15/23 Bonny Cooley MD [address] [address] Assigned PCP 10/25/21 04/02/22 Bertram Elizabeth MD [address] [address] Assigned PCP 04/03/22 07/23/22 Bertram Elizabeth MD [address] [address] Assigned PCP 10/02/22 04/29/23 Alex Johnson MD [address] [place] [address] Rheumatology 10/04/24 documented as of this encounter
--- OUTSIDE RECORDS SUMMARY | 2024-10-28 14:50 | XMS_ITS | Encounter Summary ---
Author Organization [facility] Address [address] [place] [address] Care Team Providers Care Title Camera Operator Name Role Phone Bettye Gonzales MD Unavailable + Bonny Cooley MD Primary Care Provider Antony Chakraborty MD Unavailable + [phone] Mateo Cheema MD Unavailable [phone] Ermias Colón MD Unavailable Pam Hernandez MD Unavailable Jaime Grover MD Unavailable Toni Sheth MD Unavailable Bertram Elizabeth MD Unavailable Bonny Cooley MD Unavailable [phone] Aminata Youssef MD Primary Care Provider [phone] Bertram Elizabeth MD Unavailable [phone] Alex Johnson MD Unavailable Bonny Cooley MD Unavailable [phone] Bertram Elizabeth MD Unavailable [phone] Bertram Elizabeth MD Unavailable Alex Johnson MD Unavailable Encounter Details Date Type Department Care Team (Late st Contact Info) Description 02/25/2021 MyC Medical Advice [facility] [address] [address] Karen Villagran CMA Social History [...] Sex Assigned at Female 08/28/2018 12:23 AM WASTEWATER PROJECT ENGINEER Legal Sex Female 4:46 AM WASTEWATER PROJECT ENGINEER Gender Identity Female 08/28/2018 12:23 AM WASTEWATER PROJECT ENGINEER Sexual Orientation Straight 10/11/2019 2: 51 PM WASTEWATER PROJECT ENGINEER documented as of this encounter Plan of Treatment Upcoming Encounters Date Type Department Care Team (Late st Contact Info) Description 04/25/2025 1:30 PM CDT Office Visit [facility] [address] [phone] Alex Johnson MD [address] [place] [address] 731195 documented as of this encounter Visit Diagnoses Not on filedocumented in this encounter Additional Health Concerns Assessment Noted Time PHQ-9 Depression Total Score: 11 020 2:18 PM CDT documented as of this encounter Care Teams Title Camera Operator Relationship Specialty Start Date End Date Bonny Cooley MD [address] [place] [address] PCP - General Family Practice 09/30/15 06/02/[address] [facility] [address] [place] [address] PCP - General Internal Medicine 06/03/21 Bettye Gonzales MD Internal Medicine 04/10/15 Antony Chakraborty MD [address] [address] MD INTERNAL MEDICINE - ENDOCRINOLOGY, DIABETES & METABOLISM 11/13/15 Mateo Cheema MD [address] 942905 MD Internal Medicine 08/06/16 Ermias Colón MD [address] [address] Referring Physician Neurology 09/23/16 Pam Hernandez MD [address] [place] [address] [place] [address] Assigned Behavioral Health Provider 05/30/20 08/01/21 Jaime Grover MD [address] [place] [address] Assigned Gastroenterology Provider 05/30/20 11/14/21 Toni Sheth MD [address] [place] [address] Assigned Surgical Provider 05/30/20 04/18/21 Bertram Elizabeth MD 0 [facility] 200 [place] [address] Assigned PCP 07/27/20 04/25/21 Bonny Cooley MD [address] [address] Assigned PCP 04/26/21 08/15/21 Bertram Elizabeth MD [address] [address] Assigned PCP 08/16/21 10/24/21 Alex Johnson MD [address] [place] [address] Assigned Rheumatology Provider 10/18/21 04/15/23 Bonny Cooley MD [address] [address] Assigned PCP 10/25/21 04/02/22 Bertram Elizabeth MD [address] [address] Assigned PCP 04/03/22 07/23/22 Bertram Elizabeth MD [address] [address] Assigned PCP 10/02/22 04/29/23 Alex Johnson MD [address] [place] [address] Rheumatology 10/04/24 documented as of this encounter
--- OUTSIDE RECORDS SUMMARY | 2024-10-28 14:51 | XMS_ITS | Encounter Summary ---
Author Organization [facility] Address [address] [place] [address] Care Team Providers Care Spray Pilot Name Role Phone Bettye Gonzales MD Unavailable + Bonny Cooley MD Primary Care Provider Antony Chakraborty MD Unavailable Mateo Cheema MD Unavailable [phone] Ermias Colón MD Unavailable Bonny Cooley MD Unavailable [phone] Pam Hernandez MD Unavailable [phone] Lázaro Horowtiz MD Unavailable Jaime Grover MD Unavailable [phone] Toni Sheth MD Unavailable Toni Sheth MD Unavailable Bertram Elizabeth MD Unavailable Bonny Cooley MD Unavailable [phone] Aminata Youssef MD Primary Care Provider Bertram Elizabeth MD Unavailable [phone] Alex Johnson MD Unavailable Bonny oColey MD Unavailable [phone] Bertram Elizabeth MD Unavailable [phone] Bertram Elizabeth MD Unavailable [phone] Alex Johnson MD Unavailable [phone] Encounter Details Date Type Department Care Team (Late st Contact Info) Description 06/18/2020 MyC Medical Advice [facility] [address] [address] Jaime Grover MD [address] [place] [address] Social History Tobacco Use Types Packs/Day Years Used Date Smoking Tobacco: Former Cigarettes 2 3 0 04/23/1976 - 12/17/1977 Smokeless Tobacco: Never Alcohol Use Standard Drinks/Week Comments No 0 (1 standard drink = 0.6 oz pur e alcohol) PHQ-2 Answer Date Recorded PHQ-2 Score 4 01/31/2020 Comments No Sex and Gender Information Value Date Recorded Sex Assigned at Female 08/28/2018 12:23 AM EDITORIAL ASSISTANT Legal Sex Female 4:46 AM EDITORIAL ASSISTANT Gender Identity Female 08/28/2018 12:23 AM EDITORIAL ASSISTANT Sexual Orientation Straight 10/11/2019 2: 51 PM EDITORIAL ASSISTANT COVID-19 Exposure Response Date Recorded In the last month, have you been in contact with someone who was confirmed or suspected to have Coronavirus / COVID-19? No / Unsure 06/06/2020 10:42 AM CDT documented as of this encounter Plan of Treatment Upcoming Encounters Date Type Department Care Team (Late Contact Info) Description 04/25/2025 1:30 PM CDT Office Visit [facility] [address] [phone] Alex Johnson MD [address] [place] [address] documented as of this encounter Visit Diagnoses Not on filedocumented in this encounter Additional Health Concerns Infection Onset Date Last Indicated Resolved Time COVID-19 06/23/2020 06/23/2020 07/14/2020 11:4 0 PM EDITORIAL ASSISTANT Recovered COVID 07/08/2020 07/08/2020 09/21/2020 1 1:39 PM EDITORIAL ASSISTANT Assessment Noted Time PHQ-9 Depression Total Score: 11 020 2:18 PM CDT documented as of this encounter Care Teams Spray Pilot Relationship Specialty Start Date End Date Bonny Cooley MD [address] [place] [address] PCP - General Family Practice 09/30/15 06/02/21 Aminata Youssef MD [facility] & [address] [address] PCP - General Internal Medicine 06/03/21 Bettye Gonzales MD MD Internal Medicine 04/10/15 Antony Chakraborty MD [address] [address] INTERNAL MEDICINE - ENDOCRINOLOGY, DIABETES & METABOLISM 11/13/15 Mateo Cheema MD 420 [facility] [facility] [address] [address] Internal Medicine 08/06/16 Ermias Colón MD 420 [facility] [address] [address] Referring Physician Neurology 09/23/16 Bonny Cooley MD [address] [address] Assigned PCP 10/05/15 07/26/20 Pam Hernandez MD [address] [place] [address] [place] [address] Assigned Behavioral Health Provider 05/30/20 08/01/21 Lázaro Horowitz MD [facility] [address] [place] [address] Assigned Rheumatology Provider 05/30/20 07/19/20 Jaime Grover MD [address] [place] [address] Assigned Gastroenterology Provider 05/30/20 11/14/21 [place] [address] [place] [address] [id number] Assigned Pediatric Specialist Provider 05/30/20 09/07/20 Toni Sheth MD [address] [place] [address] Assigned Surgical Provider 05/30/20 04/18/21 Bertram Elizabeth MD [address] [address] Assigned PCP 07/27/20 04/25/21 Bonny Cooley MD [address] [address] Assigned PCP 04/26/21 08/15/21 Bertram Elizabeth MD [address] [address] Assigned PCP 08/16/21 10/24/21 Alex Johnson MD [address] [place] [address] Assigned Rheumatology Provider 10/18/21 04/15/23 Bonny Cooley MD [address] [address] Assigned PCP 10/25/21 04/02/22 Bertram Elizabeth MD [address] [address] Assigned PCP 04/03/22 07/23/22 Bertram Elizabeth MD [address] [address] Assigned PCP 10/02/22 04/29/23 Alex Johnson MD [address] [place] [address] Rheumatology 10/04/24 documented as of this encounter
--- OUTSIDE RECORDS SUMMARY | 2024-10-28 14:51 | XMS_ITS | Encounter Summary ---
Author Organization [facility] Address [address] [place] [address] Care Team Providers Care Filament Coil Winder Name Role Phone Bettye Gonzales MD Unavailable + Bonny Cooley MD Primary Care Provider Antony Chakraborty MD Unavailable Mateo Cheema MD Unavailable Ermias Colón MD Unavailable Bonny Cooley MD Unavailable [phone] Pam Hernandez MD Unavailable [phone] Lázaro Horowitz MD Unavailable Jaime Grover MD Unavailable Toni Sheth MD Unavailable Toni Sheth MD Unavailable Bertram Elizabeth MD Unavailable [phone] Bonny Cooley MD Unavailable [phone] Aminata Youssef MD Primary Care Provider Bertram Elizabeth MD Unavailable [phone] Alex Johnson MD Unavailable [phone] Bonny Cooley MD Unavailable [phone] Bertram Elizabeth MD Unavailable [phone] Bertram Elizabeth MD Unavailable [phone] Alex Johnson MD Unavailable Encounter Details Date Type Department Care Team (Late st Contact Info) Description 06/09/[address] [facility] [address] [address] Jaime Grover MD [address] [place] [address] Social History Tobacco Use Types Packs/Day Years Used Date Smoking Tobacco: Former Cigarettes 2 3 0 04/23/1976 - 12/17/1977 Smokeless Tobacco: Never Alcohol Use Standard Drinks/Week Comments No 0 (1 standard drink = 0.6 oz pur e alcohol) PHQ-2 Answer Date Recorded PHQ-2 Score 4 01/31/2020 Comments No Sex and Gender Information Value Date Recorded Sex Assigned at Female 08/28/2018 12:23 AM REVENUE AGENT Legal Sex Female 4:46 AM REVENUE AGENT Gender Identity Female 08/28/2018 12:23 AM REVENUE AGENT Sexual Orientation Straight 10/11/2019 2: 51 PM REVENUE AGENT COVID-19 Exposure Response Date Recorded In the last month, have you been in contact with someone who was confirmed or suspected to have Coronavirus / COVID-19? No / Unsure 06/06/2020 10:42 AM CDT documented as of this encounter Plan of Treatment Upcoming Encounters Date Type Department Care Team (Late Contact Info) Description 04/25/2025 1:30 PM CDT Office Visit [facility] [address] [phone] Alex Johnson MD [address] [place] [address] documented as of this encounter Visit Diagnoses Not on filedocumented in this encounter Additional Health Concerns Infection Onset Date Last Indicated Resolved Time COVID-19 06/23/2020 06/23/2020 07/14/2020 11:4 0 PM REVENUE AGENT Recovered COVID 07/08/2020 07/08/2020 09/21/2020 1 1:39 PM REVENUE AGENT Assessment Noted Time PHQ-9 Depression Total Score: 11 020 2:18 PM CDT documented as of this encounter Care Teams Filament Coil Winder Relationship Specialty Start Date End Date Bonny Cooley MD [address] [place] [address] PCP - General Family Practice 09/30/15 06/02/21 Aminata Youssef MD [facility] & [address] [address] PCP - General Internal Medicine 06/03/21 Bettye Gonzales MD MD Internal Medicine 04/10/15 Antony Chakarborty MD [address] [phone] INTERNAL MEDICINE - ENDOCRINOLOGY, DIABETES & METABOLISM 11/13/15 Mateo Cheema MD 420 [facility] [address] [address] Internal Medicine 08/06/16 Ermias Colón MD 420 [facility] [address] [address]355 Referring Physician Neurology 09/23/16 Bonny Cooley MD [address] [address] Assigned PCP 10/05/15 07/26/20 Pam Hernandez MD [address] [place] [address] [place] [address] Assigned Behavioral Health Provider 05/30/20 08/01/21 Lázaro Horowitz MD [facility] [address] [place] [address] Assigned Rheumatology Provider 05/30/20 07/19/20 Jaime Grover MD [address] [place] [address] Assigned Gastroenterology Provider 05/30/20 11/14/21 [place] [address] [place] [address] [id number] Assigned Pediatric Specialist Provider 05/30/20 09/07/20 Toni Sheth MD [address] [place] [address] Assigned Surgical Provider 05/30/20 04/18/21 Bertram Elizabeth MD [address] [address] Assigned PCP 07/27/20 04/25/21 Bonny Cooley MD [address] [address] Assigned PCP 04/26/21 08/15/21 Bertram Elizabeth MD [address] [address] Assigned PCP 08/16/21 10/24/21 Alex Johnson MD [address] [place] [address] Assigned Rheumatology Provider 10/18/21 04/15/23 Bonny Cooley MD [address] [address] Assigned PCP 10/25/21 04/02/22 Bertram Elizabeth MD [address] [address] Assigned PCP 04/03/22 07/23/22 Bertram Elizabeth MD [address] [address] Assigned PCP 10/02/22 04/29/23 Alex Johnson MD [address] [place] [address] Rheumatology 10/04/24 documented as of this encounter
--- OUTSIDE RECORDS SUMMARY | 2024-10-28 14:51 | XMS_ITS | Encounter Summary ---
Author Organization [facility] Address [address] [place] [address] Care Team Providers Care Control Tower Operator Name Role Phone Bettye Gonzales MD Unavailable + Bonny Cooley MD Primary Care Provider [phone] Antony Chakraborty MD Unavailable Mateo Cheema MD Unavailable Ermias Colón MD Unavailable Bonny Cooley MD Unavailable [phone] Pam Hernandez MD Unavailable [phone] Lázaro Horowitz MD Unavailable Jaime Grover MD Unavailable Toni Sheth MD Unavailable Toni Sheth MD Unavailable Bertram Elizabeth MD Unavailable Bonny Cooley MD Unavailable [phone] Aminata Youssef MD Primary Care Provider Bertram Elizabeth MD Unavailable Alex Johnson MD Unavailable Bonny Cooley MD Unavailable [phone] Bertram Elizabeth MD Unavailable [phone] Bertram Elizabeth MD Unavailable [phone] Alex Johnson MD Unavailable [phone] Encounter Details Date Type Department Care Team (Late st Contact Info) Description 06/06/2020 MyC Medical Advice [facility] Gastroenterology Clinic [address] [address] Jaime Grover MD [address] [place] [address] Social History Tobacco Use Types Packs/Day Years Used Date Smoking Tobacco: Former Cigarettes 2 3 0 04/23/1976 - 12/17/1977 Smokeless Tobacco: Never Alcohol Use Standard Drinks/Week Comments No 0 (1 standard drink = 0.6 oz pur e alcohol) PHQ-2 Answer Date Recorded PHQ-2 Score 4 01/31/2020 Comments No Sex and Gender Information Value Date Recorded Sex Assigned at Female 08/28/2018 12:23 AM PAYROLL BENEFITS ADMINISTRATOR Legal Sex Female 4:46 AM PAYROLL BENEFITS ADMINISTRATOR Gender Identity Female 08/28/2018 12:23 AM PAYROLL BENEFITS ADMINISTRATOR Sexual Orientation Straight 10/11/2019 2: 51 PM PAYROLL BENEFITS ADMINISTRATOR COVID-19 Exposure Response Date Recorded In the [...] [facility] Specialty Clinic [address] [phone] Alex Johnson MD [address] [place] [address] documented as of this encounter Visit Diagnoses Not on filedocumented in this encounter Additional Health Concerns Infection Onset Date Last Indicated Resolved Time COVID-19 06/23/2020 06/23/2020 07/14/2020 11:4 0 PM PAYROLL BENEFITS ADMINISTRATOR Recovered COVID 07/08/2020 07/08/2020 09/21/2020 1 1:39 PM PAYROLL BENEFITS ADMINISTRATOR Assessment Noted Time PHQ-9 Depression Total Score: 11 020 2:18 PM CDT documented as of this encounter Care Teams Control Tower Operator Relationship Specialty Start Date End Date Bonny Cooley MD [address] [place] [address] PCP - General Family Practice 09/30/15 06/02/21 Aminata Youssef MD [facility] & [address] [address] PCP - General Internal Medicine 06/03/21 Bettye Gonzales MD MD Internal Medicine 04/10/15 Antony Chakraborty MD [address] [id number] INTERNAL MEDICINE - ENDOCRINOLOGY, DIABETES & METABOLISM 11/13/15 Mateo Cheema MD [address] [facility] [address] [address] Internal Medicine 08/06/16 Ermias Colón MD [address] [facility] [address] [address] Referring Physician Neurology 09/23/16 Bonny Cooley MD [address] [address] Assigned PCP 10/05/15 07/26/20 Pam Hernandez MD [address] [place] [address] [place] [address] Assigned Behavioral Health Provider 05/30/20 08/01/21 Lázaro Horowitz MD [facility] [address] [place] [address] Assigned Rheumatology Provider 05/30/20 07/19/20 Jaime Grover MD [address] [place] [address] Assigned Gastroenterology Provider 05/30/20 11/14/21 [place] [address] [place] [address] [id number] Assigned Pediatric Specialist Provider 05/30/20 09/07/20 Toni Sheth MD [address] [place] [address] Assigned Surgical Provider 05/30/20 04/18/21 Bertram Elizabeth MD [address] [address] Assigned PCP 07/27/20 04/25/21 Bonny Cooley MD [address] [address] Assigned PCP 04/26/21 08/15/21 Bertram Elizabeth MD [address] [address] Assigned PCP 08/16/21 10/24/21 Alex Johnson MD [address] [place] [address] Assigned Rheumatology Provider 10/18/21 04/15/23 Bonny Cooley MD [address] [address] Assigned PCP 10/25/21 04/02/22 Bertram Elizabeth MD [address] [address] Assigned PCP 04/03/22 07/23/22 Bertram Elizabeth MD [address] [address] Assigned PCP 10/02/22 04/29/23 Alex Johnson MD [address] [place] [address] Rheumatology 10/04/24 documented as of this encounter
--- OUTSIDE RECORDS SUMMARY | 2024-10-28 14:51 | XMS_ITS | Encounter Summary ---
Author Organization [place] Address [address] [place] [address] Care Team Providers Care Cuffing Machine Operator Name Role Phone Bettye Gonzales MD Unavailable + Bonny Coloey MD Primary Care Provider Antony Chakraborty MD Unavailable [phone] Mateo Cheema MD Unavailable Ermias Colón MD Unavailable Bonny Cooley MD Unavailable [phone] Pam Hernandez MD Unavailable [phone] Lázaro Horowitz MD Unavailable Jaime Grover MD Unavailable [phone] Toni Sheth MD Unavailable Toni Sheth MD Unavailable Bertram Elizabeth MD Unavailable Bonny Cooley MD Unavailable [phone] Aminata Youssef MD Primary Care Provider Bertram Elizabeth MD Unavailable Alex Johnson MD Unavailable Bonny Cooley MD Unavailable [phone] Bertram Elizabeth MD Unavailable [phone] Bertram Elizabeth MD Unavailable [phone] Alex Johnson MD Unavailable [phone] Encounter Details Date Type Department Care Team (Late st Contact Info) Description 07/07/2020 MyC Medical Advice [facility] Gastroenterology Clinic [address] [address] Dulce Connell RN Social History [...] Sex Assigned at Female 08/28/2018 12:23 AM YOUTH TEACHER Legal Sex Female 4:46 AM YOUTH TEACHER Gender Identity Female 08/28/2018 12:23 AM YOUTH TEACHER Sexual Orientation Straight 10/11/2019 2: 51 PM YOUTH TEACHER COVID-19 Exposure Response Date Recorded In the last month, have you been in contact with someone who was confirmed or suspected to have Coronavirus / COVID-19? No / Unsure 07/08/2020 8:58 AM YOUTH TEACHER documented as of this encounter Plan of Treatment Upcoming Encounters Date Type Department Care Team (Late st Contact Info) Description 04/25/2025 1:30 PM CDT Office Visit [facility] [address] [place] [address] Alex Johnson MD [address] [place] [address] documented as of this encounter Visit Diagnoses Not on filedocumented in this encounter Additional Health Concerns Infection Onset Date Last Indicated Resolved Time COVID-19 06/23/2020 06/23/2020 07/14/2020 11:4 0 PM YOUTH TEACHER Recovered COVID 07/08/2020 07/08/2020 09/21/2020 1 1:39 PM YOUTH TEACHER Assessment Noted Time PHQ-9 Depression Total Score: 11 020 2:18 PM CDT documented as of this encounter Care Teams Cuffing Machine Operator Relationship Specialty Start Date End Date Bonny Cooley MD [address] [place] [address] PCP - General Family Practice 09/30/15 06/02/21 Aminata Youssef MD [facility] & [address] [address] PCP - General Internal Medicine 06/03/21 Bettye Gonzales MD Internal Medicine 04/10/15 Antony Chakraborty MD [address] 397[address] MD INTERNAL MEDICINE - ENDOCRINOLOGY, DIABETES & METABOLISM 11/13/15 Mateo Cheema MD 420 [place] [address] [address] Internal Medicine 08/06/16 Ermias Colón MD [address] 040785 Referring Physician Neurology 09/23/16 Bonny Cooley MD [address] [address] Assigned PCP 10/05/15 07/26/20 Pam Hernandez MD [address] [place] [address] [place] [address] Assigned Behavioral Health Provider 05/30/20 08/01/21 Lázaro Horowitz MD [facility] [address] [place], [place] 301665 Assigned Rheumatology Provider 05/30/20 07/19/20 Jaime Grover MD [address] [place] [address] Assigned Gastroenterology Provider 05/30/20 11/14/21 Toni Sheth MD [address] [place] [address] Assigned Pediatric Specialist Provider 05/30/20 09/07/20 Toni Sheth MD [address] [place] [address] [id number] Assigned Surgical Provider 05/30/20 04/18/21 Bertram Elizabeth MD [address] [address] Assigned PCP 07/27/20 04/25/21 Bonny Cooley MD [address] [address] Assigned PCP 04/26/21 08/15/21 Bertram Elizabeth MD [address] [address] Assigned PCP 08/16/21 10/24/21 Alex Johnson MD [address] [place] [address] Assigned Rheumatology Provider 10/18/21 04/15/23 Bonny Cooley MD [address] [address] Assigned PCP 10/25/21 04/02/22 Bertram Elizabeth MD [address] [address] Assigned PCP 04/03/22 07/23/22 Bertram Elizabeth MD [address] [address] Assigned PCP 10/02/22 04/29/23 Alex Johnson MD [address] [place] [address] Rheumatology 10/04/24 documented as of this encounter
--- OUTSIDE RECORDS SUMMARY | 2024-10-28 14:51 | XMS_ITS | Clinical Summary ---
Author Organization [facility] Address [address] [place] [address] Care Team Providers Care Group Sales Coordinator Name Role Phone Aminata Youssef MD Primary Care Provider [phone] Allergies Active Allergy Reactions Criticality Noted Date [...] on file Legal Sex Female 7:09 AM PHYSICIAN GENERAL INTERNAL MEDICINE Gender Identity Not on file Sexual Orientation Not on file Occupation Industry Job Start Date Job End Date Retired Not on file Not on file Not on file Obstetrics History Last Filed Vital Signs Vital Sign Reading Time Taken Comments Blood Pressure 128/75 05/31/2022 12:55 PM CDT Pulse 92 05/31/2022 12:55 PM CDT Temperature 36.4 C (97.6 F) 09/01/2016 9:00 AM PHYSICIAN GENERAL INTERNAL MEDICINE Respiratory Rate 16 09/01/2016 10:42 AM PHYSICIAN GENERAL INTERNAL MEDICINE Oxygen Saturation 96% 05/31/2022 12:55 PM CDT Inhaled Oxygen Concentration - - Weight 89.4 kg (197 lb) 05/31/2022 12:55 PM CDT w/ shoes Height 166.4 cm (5' 5.5) 08/31/2016 9:57 AM PHYSICIAN GENERAL INTERNAL MEDICINE Body Mass Index 32.28 08/31/2016 9:57 AM PHYSICIAN GENERAL INTERNAL MEDICINE Plan of Treatment Health Maintenance Due Date [...] (#1) 2024 Medical Devices Implanted Type Area Counsel Device Identifier Shelf Expiration Date Model / Serial / Lot Lens Iol Zcb00 17.0 - [id number] Implanted:Qty: 1 on 05/14/2016 by Kiran Chase MD at [facility] Left: Eye [employer] 12/17/2019 ZCB00# / [id number] / Iol [employer] Elder +17.5 [employer]ecnis Zcb00 - [id number] Implanted:Qty: 1 on 09/01/2016 by Kiran Chase MD at [facility] Right: Eye [employer] 05/02/2020 ZCB00# / [id number] / Insurance MEDICARE PART A HB ONLY [...] Code Status Discussion: Not Discussed Care Teams Group Sales Coordinator Relationship Specialty Start Date End Date Aminata Youssef MD [address] [place] [address] PCP - General Internal Medicine 05/27/21
--- OUTSIDE RECORDS SUMMARY | 2024-10-28 14:51 | XMS_ITS | Encounter Summary ---
Author Organization [facility] Address [address] [place] [address]. [place] [address] Care Team Providers Care Peritoneal Dialysis Registered Nurse Name Role Phone Bettye Gonzales MD Unavailable + Antony Chakraborty MD Unavailable Mateo Cheema MD Unavailable [phone] Ermias Colón MD Unavailable Aminata Youssef MD Primary Care Provider Alex Johnson MD Unavailable [phone] Encounter Details Date Type Department Care Team (Late st Contact Info) Description 07/21/2023 [facility] Medical [facility]ice [facility] Rhe[facility]ology Clinic [address] [address] Suly Merrill, RN Social History [...] Sex Assigned at Female 08/28/2018 12:23 AM JANITOR CLEANER Legal Sex Female 4:46 AM JANITOR CLEANER Gender Identity Female 08/28/2018 12:23 AM JANITOR CLEANER Sexual Orientation Straight 10/11/2019 2: 51 PM JANITOR CLEANER documented as of this encounter Plan of Treatment Upcoming Encounters Date Type Department Care Team (Late st Contact Info) Description 04/25/2025 1:30 PM CDT Office Visit [facility] [address] [phone] Alex Johnson MD [address] 1745[address] documented as of this encounter Visit Diagnoses Not on filedocumented in this encounter Additional Health Concerns Assessment Noted Time PHQ-9 Depression Total Score: 11 020 2:18 PM CDT documented as of this encounter Care Teams Peritoneal Dialysis Registered Nurse Relationship Specialty Start Date End Date Aminata Youssef MD [facility] & [address] [address] PCP - General Internal Medicine 06/03/21 Bettye Gonzales MD Internal Medicine 04/10/15 Antony Chakraborty MD [address] [address] INTERNAL MEDICINE - ENDOCRINOLOGY, DIABETES & METABOLISM 11/13/15 Mateo Cheema MD [address] [address] Internal Medicine 08/06/16 Ermias Colón MD [address] [address] Referring Physician Neurology 09/23/16 Alex Johnson MD [address] [place] [address] 88 [place], [place] [phone] Rheumatology 10/04/24 documented as of this encounter
--- OUTSIDE RECORDS SUMMARY | 2024-10-28 14:51 | XMS_ITS | Encounter Summary ---
Author Organization [facility] Address [address] [place] [address]. [place] [address] Care Team Providers Care Communications Scientist Name Role Phone Bettye Gonzales MD Unavailable + Antony Chakraborty MD Unavailable Mateo Cheema MD Unavailable [phone] Ermias Colón MD Unavailable Aminata Youssef MD Primary Care Provider [phone] Alex Johnson MD Unavailable Encounter Details Date Type Department Care Team (Late st Contact Info) Description 12/13/2023 [facility] Rheumatology Clinic [address] [address] [facility] Social History Tobacco Use Types Packs/Day Years [...] Sex Assigned at Female 08/28/2018 12:23 AM FREIGHT LOADING SUPERVISOR Legal Sex Female 4:46 AM FREIGHT LOADING SUPERVISOR Gender Identity Female 08/28/2018 12:23 AM FREIGHT LOADING SUPERVISOR Sexual Orientation Straight 10/11/2019 2: 51 PM FREIGHT LOADING SUPERVISOR documented as of this encounter Plan of Treatment Upcoming Encounters Date Type Department Care Team (Late st Contact Info) Description 04/25/2025 1:30 PM CDT Office Visit [facility] Specialty Clinic [address] [phone] Alex Johnson MD [address] 4[address]85 documented as of this encounter Visit Diagnoses Not on filedocumented in this encounter Additional Health Concerns Assessment Noted Time PHQ-9 Depression Total Score: 11 020 2:18 PM CDT documented as of this encounter Care Teams Communications Scientist Relationship Specialty Start Date End Date Aminata Youssef MD [facility] & [address] [address] PCP - General Internal Medicine 06/03/21 Bettye Gonzales MD Internal Medicine 04/10/15 Antony Chakraborty MD [address] [address] INTERNAL MEDICINE - ENDOCRINOLOGY, DIABETES & METABOLISM 11/13/15 Mateo Cheema MD [address] [address] Internal Medicine 08/06/16 Ermias Colón MD [address] [address] Referring Physician Neurology 09/23/16 Alex Johnson MD [address] [place] [address] 88 [place], [place] 939855 Rheumatology 10/04/24 documented as of this encounter
--- OUTSIDE RECORDS SUMMARY | 2024-10-28 14:51 | XMS_ITS | Encounter Summary ---
Author Organization [facility] Address [address] [place] [address] Care Team Providers Care Senior Net C Developer Name Role Phone Bettye Gonzales MD Unavailable + Antony Chakraborty MD Unavailable [phone] Mateo Cheema MD Unavailable Ermias Colón MD Unavailable Aminata Youssef MD Primary Care Provider Alex Johnson MD Unavailable [phone] Encounter Details Date Type Department Care Team [...] Sex Assigned at Female 08/28/2018 12:23 AM RADIUS CORNER MACHINE OPERATOR Legal Sex Female 4:46 AM RADIUS CORNER MACHINE OPERATOR Gender Identity Female 08/28/2018 12:23 AM RADIUS CORNER MACHINE OPERATOR Sexual Orientation Straight 10/11/2019 2: 51 PM RADIUS CORNER MACHINE OPERATOR documented as of this encounter Plan of Treatment Upcoming Encounters Date Type Department Care Team (Late st Contact Info) Description 04/25/2025 1:30 PM CDT Office Visit [facility] Specialty [facility] [address] [place] [phone] Alex Johnson MD [address] [place] [address] 514475 documented as of this encounter Visit Diagnoses Not on filedocumented in this encounter Additional Health Concerns Assessment Noted Time PHQ-9 Depression Total Score: 11 020 2:18 PM CDT documented as of this encounter Care Teams Senior Net C Developer Relationship Specialty Start Date End Date Aminata Youssef MD [facility] & [address] [address] PCP - General Internal Medicine 06/03/21 Bettye Gonzales MD Internal Medicine 04/10/15 Antony Chakraborty MD [address] [address] INTERNAL MEDICINE - ENDOCRINOLOGY, DIABETES & METABOLISM 11/13/15 Mateo Cheema MD [address] 538835 Internal Medicine 08/06/16 Ermias Colón MD [address] [address] Referring Physician Neurology 09/23/16 Alex Johnson MD [address] [place] [address] Rheumatology 10/04/24 documented as of this encounter
--- OUTSIDE RECORDS SUMMARY | 2024-10-28 14:51 | XMS_ITS | Encounter Summary ---
Author Organization [facility] Address [address] [place] [address] Care Team Providers Care Revenue Accounting Manager Name Role Phone Bettye Gonzales MD Unavailable + Bonny Cooley MD Primary Care Provider Antony Chakraborty MD Unavailable Mateo Cheema MD Unavailable [phone] Ermias Colón MD Unavailable Bonny Cooley MD Unavailable [phone] Pam Hernandez MD Unavailable [phone] Lázaro Horowitz MD Unavailable Jaime Grover MD Unavailable Toni Sheth MD Unavailable Toni Sheth MD Unavailable Bertram Elizabeth MD Unavailable Bonny Cooley MD Unavailable [phone] Aminata Youssef MD Primary Care Provider Bertram Elizabeth MD Unavailable [phone] Alex Johnson MD Unavailable [phone] Bonny Cooley MD Unavailable [phone] Bertram Elizabeth MD Unavailable [phone] Bertram Elizabeth MD Unavailable [phone] Alex Johnson MD Unavailable Encounter Details Date Type Department Care Team (Late st Contact Info) Description 07/02/2020 MyC Medical Advice [facility] Gastroenterology Clinic [address] [address] Jaime Grover MD [address] [place] [address] Social History Tobacco Use Types Packs/Day Years Used Date Smoking Tobacco: Former Cigarettes 2 3 0 04/23/1976 - 12/17/1977 Smokeless Tobacco: Never Alcohol Use Standard Drinks/Week Comments No 0 (1 standard drink = 0.6 oz pur e alcohol) PHQ-2 Answer Date Recorded PHQ-2 Score 4 01/31/2020 Comments No Sex and Gender Information Value Date Recorded Sex Assigned at Female 08/28/2018 12:23 AM OCEANOGRAPHER GEOLOGICAL Legal Sex Female 4:46 AM OCEANOGRAPHER GEOLOGICAL Gender Identity Female 08/28/2018 12:23 AM OCEANOGRAPHER GEOLOGICAL Sexual Orientation Straight 10/11/2019 2: 51 PM OCEANOGRAPHER GEOLOGICAL COVID-19 Exposure Response Date Recorded In the last month, have you been in contact with someone who was confirmed or suspected to have Coronavirus / COVID-19? No / Unsure 06/23/2020 10:33 AM OCEANOGRAPHER GEOLOGICAL documented as of this encounter Plan of Treatment Upcoming Encounters Date Type Department Care Team (Late st Contact Info) Description 04/25/2025 1:30 PM CDT Office Visit [facility] Specialty Clinic [address] [phone] Alex Johnson MD [address] [place] [address] documented as of this encounter Visit Diagnoses Not on filedocumented in this encounter Additional Health Concerns Infection Onset Date Last Indicated Resolved Time COVID-19 06/23/2020 06/23/2020 07/14/2020 11:4 0 PM OCEANOGRAPHER GEOLOGICAL Recovered COVID 07/08/2020 07/08/2020 09/21/2020 1 1:39 PM OCEANOGRAPHER GEOLOGICAL Assessment Noted Time PHQ-9 Depression Total Score: 11 020 2:18 PM CDT documented as of this encounter Care Teams Revenue Accounting Manager Relationship Specialty Start Date End Date Bonny Cooley MD [address] [place] [address] PCP - General Family Practice 09/30/15 06/02/21 Aminata Youssef MD [facility] & [address] [address] PCP - General Internal Medicine 06/03/21 Bettye Gonzales MD MD Internal Medicine 04/10/15 Antony Chakraborty MD [address] [facility] [address] [address] INTERNAL MEDICINE - ENDOCRINOLOGY, DIABETES & METABOLISM 11/13/15 Mateo Cheema MD [address] [place] [address] [phone] Internal Medicine 08/06/16 Ermias Colón MD 420 [facility] [address] 345465 Referring Physician Neurology 09/23/16 Bonny Cooley MD [address] [address] Assigned PCP 10/05/15 07/26/20 Pam Hernandez MD [address] [place] [address] [place] [address] Assigned Behavioral Health Provider 05/30/20 08/01/[address] [facility] [address] [place] [address] Assigned Rheumatology Provider 05/30/20 07/19/20 Jaime Grover MD [address] [place] [address] Assigned Gastroenterology Provider 05/30/20 11/14/21 [place] [address] [place] [address] [id number] Assigned Pediatric Specialist Provider 05/30/20 09/07/20 Toni Sheth MD [address] [place] [address] Assigned Surgical Provider 05/30/20 04/18/21 Bertram Elizabeth MD [address] [address] Assigned PCP 07/27/20 04/25/21 Bonny Cooley MD [address] [address] Assigned PCP 04/26/21 08/15/21 Bertram Elizabeth MD [address] [address] Assigned PCP 08/16/21 10/24/21 Alex Johnson MD [address] [place] [address] Assigned Rheumatology Provider 10/18/21 04/15/23 Bonny Cooley MD [address] [address] Assigned PCP 10/25/21 04/02/22 Bertram Elizabeth MD [address] [address] Assigned PCP 04/03/22 07/23/22 Bertram Elizabeth MD [address] [address] Assigned PCP 10/02/22 04/29/23 Alex Johnson MD [address] [place] [address] Rheumatology 10/04/24 documented as of this encounter
--- OUTSIDE RECORDS SUMMARY | 2024-10-28 14:51 | XMS_ITS | Encounter Summary ---
Author Organization [facility] Address [address] [place] [address] Care Team Providers Care Alum Plant Operator Name Role Phone Bettye Gonzales MD Unavailable + Bonny Cooley MD Primary Care Provider Antony Chakraborty MD Unavailable [phone] Mateo Cheema MD Unavailable Ermias Colón MD Unavailable Bonny Cooley MD Unavailable [phone] Pam Hernandez MD Unavailable [phone] Lázaro Horowitz MD Unavailable Jaime Grover MD Unavailable [phone] Toni Sheth MD Unavailable Toni Sheth MD Unavailable Bertram Elizabeth MD Unavailable Bonny Cooley MD Unavailable [phone] Aminata Youssef MD Primary Care Provider Bertram Elizabeth MD Unavailable Alex Johnson MD Unavailable [phone] Bonny Cooley MD Unavailable [phone] Bertram Elizabeth MD Unavailable [phone] Bertram Elizabeth MD Unavailable [phone] Alex Johnson MD Unavailable [phone] Encounter Details Date Type Department Care Team (Late st Contact Info) Description 06/26/2020 MyC Medical Advice [facility] [address] [address] Jaime Grover MD [address] [place] [address] Social History Tobacco Use Types Packs/Day Years Used Date Smoking Tobacco: Former Cigarettes 2 3 0 04/23/1976 - 12/17/1977 Smokeless Tobacco: Never Alcohol Use Standard Drinks/Week Comments No 0 (1 standard drink = 0.6 oz pur e alcohol) PHQ-2 Answer Date Recorded PHQ-2 Score 4 01/31/2020 Comments No Sex and Gender Information Value Date Recorded Sex Assigned at Female 08/28/2018 12:23 AM TANKAGE GRINDER Legal Sex Female 4:46 AM TANKAGE GRINDER Gender Identity Female 08/28/2018 12:23 AM TANKAGE GRINDER Sexual Orientation Straight 10/11/2019 2: 51 PM TANKAGE GRINDER COVID-19 Exposure Response Date Recorded In the last month, have you been in contact with someone who was confirmed or suspected to have Coronavirus / COVID-19? No / Unsure 06/23/2020 10:33 AM TANKAGE GRINDER documented as of this encounter Plan of Treatment Upcoming Encounters Date Type Department Care Team (Late st Contact Info) Description 04/25/2025 1:30 PM CDT Office Visit [facility] [address] [phone] Alex Johnson MD [address] [place] [address] documented as of this encounter Visit Diagnoses Not on filedocumented in this encounter Additional Health Concerns Infection Onset Date Last Indicated Resolved Time COVID-19 06/23/2020 06/23/2020 07/14/2020 11:4 0 PM TANKAGE GRINDER Recovered COVID 07/08/2020 07/08/2020 09/21/2020 1 1:39 PM TANKAGE GRINDER Assessment Noted Time PHQ-9 Depression Total Score: 11 020 2:18 PM CDT documented as of this encounter Care Teams Alum Plant Operator Relationship Specialty Start Date End Date Bonny Cooley MD [address] [place] [address] PCP - General Family Practice 09/30/15 06/02/[address] [facility] & [address] [address] PCP - General Internal Medicine 06/03/21 Bettye Gonzales MD MD Internal Medicine 04/10/15 Antnoy Chakraborty MD [facility] [address] [address] INTERNAL MEDICINE - ENDOCRINOLOGY, DIABETES & METABOLISM 11/13/15 Mateo Cheema MD [address] [facility] [address] [phone] Internal Medicine 08/06/16 Ermias Colón MD [facility] [address] [address] Referring Physician Neurology 09/23/16 Bonny Cooley MD [address] [address] Assigned PCP 10/05/15 07/26/20 Pam Hernandez MD [address] [place] [address] [place] [address] Assigned Behavioral Health Provider 05/30/20 08/01/21 Lázaro Horowitz MD [facility] [address] [place] [address] Assigned Rheumatology Provider 05/30/20 07/19/20 Jaime Grover MD [address] [place] [address] Assigned Gastroenterology Provider 05/30/20 11/14/21 [place] [address] [place] [address] [phone] Assigned Pediatric Specialist Provider 05/30/20 09/07/20 Toni Sheth MD [address] [place] [address] Assigned Surgical Provider 05/30/20 04/18/21 Bertram Elizabeth MD [address] [address] Assigned PCP 07/27/20 04/25/21 Bonny Cooley MD [address] [address] Assigned PCP 04/26/21 08/15/21 Bertram Elizabeth MD [address] [address] Assigned PCP 08/16/21 10/24/21 Alex Johnson MD [address] [place] [address] Assigned Rheumatology Provider 10/18/21 04/15/23 Bonny Cooley MD [address] [address] Assigned PCP 10/25/21 04/02/22 Bertram Elizabeth MD [address] [address] Assigned PCP 04/03/22 07/23/22 Bertram Elizabeth MD [address] [address] Assigned PCP 10/02/22 04/29/23 Alex Johnson MD [address] [place] [address] Rheumatology 10/04/24 documented as of this encounter
--- OUTSIDE RECORDS SUMMARY | 2024-10-28 14:51 | XMS_ITS | Encounter Summary ---
Author Organization [facility] Address [address] [place] [address] Care Team Providers Care Museum Informatics Specialist Name Role Phone Bettye Gonzales MD Unavailable + Bonny Cooley MD Primary Care Provider [phone] Antony Chakraborty MD Unavailable Mateo Cheema MD Unavailable Ermias Colón MD Unavailable Bonny Cooley MD Unavailable [phone] Pam Hernandez MD Unavailable [phone] Lázaro Horowitz MD Unavailable Jaime Grover MD Unavailable Toni Sheth MD Unavailable Toni Sheth MD Unavailable Bertram Elizabeth MD Unavailable Bonny Cooley MD Unavailable [phone] Aminata Youssef MD Primary Care Provider Bertram Elizabeth MD Unavailable Alex Johnson MD Unavailable Bonny Cooley MD Unavailable [phone] Betrram Elizabeth MD Unavailable [phone] Bertram Elizabeth MD Unavailable [phone] Alex Johnson MD Unavailable Encounter Details Date Type Department Care Team (Late st Contact Info) Description 06/23/2020 [facility] [address] [place] [phone] Denia Allen Social History Tobacco Use [...] Sex Assigned at Female 08/28/2018 12:23 AM CRANBERRY BOG SUPERVISOR Legal Sex Female 4:46 AM CRANBERRY BOG SUPERVISOR Gender Identity Female 08/28/2018 12:23 AM CRANBERRY BOG SUPERVISOR Sexual Orientation Straight 10/11/2019 2: 51 PM CRANBERRY BOG SUPERVISOR COVID-19 Exposure Response Date Recorded In the last month, have you been in contact with someone who was confirmed or suspected to have Coronavirus / COVID-19? No / Unsure 06/23/2020 10:33 AM CRANBERRY BOG SUPERVISOR documented as of this encounter Plan of Treatment Upcoming Encounters Date Type Department Care Team (Late st Contact Info) Description 04/25/2025 1:30 PM CDT Office Visit [facility] [address] [place] [address] Alex Johnson MD [address] [place] [address] documented as of this encounter Visit Diagnoses Not on filedocumented in this encounter Additional Health Concerns Infection Onset Date Last Indicated Resolved Time COVID-19 06/23/2020 06/23/2020 07/14/2020 11:4 0 PM CRANBERRY BOG SUPERVISOR Recovered COVID 07/08/2020 07/08/2020 09/21/2020 1 1:39 PM CRANBERRY BOG SUPERVISOR Assessment Noted Time PHQ-9 Depression Total Score: 11 020 2:18 PM CDT documented as of this encounter Care Teams Museum Informatics Specialist Relationship Specialty Start Date End Date Bonny Cooley MD [address] [place] [address] PCP - General Family Practice 09/30/15 06/02/21 Aminata Youssef MD [facility] [address] [place] [address] PCP - General Internal Medicine 06/03/21 Bettye Gonzales MD MD Internal Medicine 04/10/15 Antony Chakraborty MD [address] [address] MD INTERNAL MEDICINE - ENDOCRINOLOGY, DIABETES & METABOLISM 11/13/15 Mateo Cheema MD [address] [address] Internal Medicine 08/06/16 Ermias Colón MD [address] 328[address] Referring Physician Neurology 09/23/16 Bonny Cooley MD [address] [address] Assigned PCP 10/05/15 07/26/20 Pam Hernandez MD [address] [place] [address] [place] [address] Assigned Behavioral Health Provider 05/30/20 08/01/21 Lázaro Horowitz MD [facility] [address] [place] [address] Assigned Rheumatology Provider 05/30/20 07/19/20 Jaime Grover MD [address] [place] [address] Assigned Gastroenterology Provider 05/30/20 11/14/21 Toni Sheth MD [address] [place] [address] Assigned Pediatric Specialist Provider 05/30/20 09/07/20 Toni Sheth MD [address] [place] [address] Assigned Surgical Provider 05/30/20 04/18/21 Bertram Elizabeth MD [address] [place] [address] Assigned PCP 07/27/20 04/25/21 Bonny Cooley MD [address] [place] [address] Assigned PCP 04/26/21 08/15/21 Bertram Elizabeth MD [address] [address] Assigned PCP 08/16/21 10/24/21 Alex Johnson MD [address] [place] [address] Assigned Rheumatology Provider 10/18/21 04/15/23 Bonny Cooley MD [address] [address] Assigned PCP 10/25/21 04/02/22 Bertram Elizabeth MD [address] [address] Assigned PCP 04/03/22 07/23/22 Bertram Elizabeth MD [address] [address] Assigned PCP 10/02/22 04/29/23 Alex Johnson MD [address] [place] [address] Rheumatology 10/04/24 documented as of this encounter
--- OUTSIDE RECORDS SUMMARY | 2024-10-28 14:51 | XMS_ITS | Encounter Summary ---
Author Organization [facility] Address [address] [place] [address] Care Team Providers Care Patternmaker Bench Name Role Phone Bettye Gonzales MD Unavailable + Bonny Cooley MD Primary Care Provider [phone] Antony Chakraborty MD Unavailable Mateo Chemea MD Unavailable Ermias Colón MD Unavailable Bonny Cooley MD Unavailable [phone] Pam Hernandez MD Unavailable [phone] Lázaro Horowitz MD Unavailable Jaime Grover MD Unavailable Toni Sheth MD Unavailable Toni Sheth MD Unavailable Bertram Elizabeth MD Unavailable Bonny Cooley MD Unavailable [phone] Aminata Youssef MD Primary Care Provider Bertram Elizabeth MD Unavailable Alex Johnson MD Unavailable [phone] Bonny Cooley MD Unavailable [phone] Bertram Elizabeth MD Unavailable [phone] Bertram Elizabeth MD Unavailable [phone] Alex Johnson MD Unavailable Encounter Details Date Type Department Care Team (Late st Contact Info) Description 06/25/2020 MyC Medical Advice [facility] [address] [address] Jaime Grover MD [address] [place] [address] Social History Tobacco Use Types Packs/Day Years Used Date Smoking Tobacco: Former Cigarettes 2 3 0 04/23/1976 - 12/17/1977 Smokeless Tobacco: Never Alcohol Use Standard Drinks/Week Comments No 0 (1 standard drink = 0.6 oz pur e alcohol) PHQ-2 Answer Date Recorded PHQ-2 Score 4 01/31/2020 Comments No Sex and Gender Information Value Date Recorded Sex Assigned at Female 08/28/2018 12:23 AM LICENSED FUNERAL DIRECTOR Legal Sex Female 4:46 AM LICENSED FUNERAL DIRECTOR Gender Identity Female 08/28/2018 12:23 AM LICENSED FUNERAL DIRECTOR Sexual Orientation Straight 10/11/2019 2: 51 PM LICENSED FUNERAL DIRECTOR COVID-19 Exposure Response Date Recorded In the last month, have you been in contact with someone who was confirmed or suspected to have Coronavirus / COVID-19? No / Unsure 06/23/2020 10:33 AM LICENSED FUNERAL DIRECTOR documented as of this encounter Plan of Treatment Upcoming Encounters Date Type Department Care Team (Late st Contact Info) Description 04/25/2025 1:30 PM CDT Office Visit [facility] [address] [phone] Alex Johnson MD [address] [place] [address] documented as of this encounter Visit Diagnoses Not on filedocumented in this encounter Additional Health Concerns Infection Onset Date Last Indicated Resolved Time COVID-19 06/23/2020 06/23/2020 07/14/2020 11:4 0 PM LICENSED FUNERAL DIRECTOR Recovered COVID 07/08/2020 07/08/2020 09/21/2020 1 1:39 PM LICENSED FUNERAL DIRECTOR Assessment Noted Time PHQ-9 Depression Total Score: 11 020 2:18 PM CDT documented as of this encounter Care Teams Patternmaker Bench Relationship Specialty Start Date End Date Bonny Cooley MD [address] [place] [address] PCP - General Family Practice 09/30/15 06/02/21 Amintaa Youssef MD [facility] & [address] [address] PCP - General Internal Medicine 06/03/21 Bettye Gonzales MD MD Internal Medicine 04/10/15 Antony Chakraborty MD [facility] [address] [phone] INTERNAL MEDICINE - ENDOCRINOLOGY, DIABETES & METABOLISM 11/13/15 Mateo Cheema MD [address] [facility] [address] [phone] Internal Medicine 08/06/16 Ermias Colón MD [facility] [address] [phone] Referring Physician Neurology 09/23/16 Bonny Cooley MD [address] [address] Assigned PCP 10/05/15 07/26/20 Pam Hernandez MD [address] [place] [address] [place] [address] Assigned Behavioral Health Provider 05/30/20 08/01/21 Lázaro Horowitz MD [facility] [address] [place] [address] Assigned Rheumatology Provider 05/30/20 07/19/20 Jaime Grover MD [address] [place] [address] Assigned Gastroenterology Provider 05/30/20 11/14/21 [place] [address] [place] [address] [phone] Assigned Pediatric Specialist Provider 05/30/20 09/07/20 Toni Sheth MD [address] [place] [address] Assigned Surgical Provider 05/30/20 04/18/21 Bertram Elizabeth MD [address] [address] Assigned PCP 07/27/20 04/25/21 Bonny Cooley MD [address] [address] Assigned PCP 04/26/21 08/15/21 Bertram Elizabeth MD [address] [address] Assigned PCP 08/16/21 10/24/21 Alex Johnson MD [address] [place] [address] Assigned Rheumatology Provider 10/18/21 04/15/23 Bonny Cooley MD [address] [address] Assigned PCP 10/25/21 04/02/22 Bertram Elizabeth MD [address] [address] Assigned PCP 04/03/22 07/23/22 Bertram Elizabeth MD [address] [address] Assigned PCP 10/02/22 04/29/23 Alex Johnson MD [address] [place] [address] Rheumatology 10/04/24 documented as of this encounter
--- OUTSIDE RECORDS SUMMARY | 2024-10-28 14:51 | XMS_ITS | Encounter Summary ---
Author Organization [facility] Address [address] [place] [address] Care Team Providers Care Road Sign Installer Name Role Phone Bettye Gonzales MD Unavailable + Bonny Cooley MD Primary Care Provider [phone] Antony Chakraborty MD Unavailable [phone] Mateo Cheema MD Unavailable Ermias Colón MD Unavailable Bonny Cooley MD Unavailable [phone] Pam Hernandez MD Unavailable [phone] Lázaro Horowitz MD Unavailable Jaime Grover MD Unavailable Toni Sheth MD Unavailable Toni Sheth MD Unavailable Bertram Elizabeth MD Unavailable Bonny Cooley MD Unavailable [phone] Aminata Youssef MD Primary Care Provider Bertram Elizabeth MD Unavailable Alex Johnson MD Unavailable Bonny Cooley MD Unavailable [phone] Bertram Elizabeth MD Unavailable [phone] Bertram Elizabeth MD Unavailable [phone] Alex Johnson MD Unavailable [phone] Encounter Details Date Type Department Care Team (Late st Contact Info) Description 06/23/2020 MyC Medical Advice [facility] [address] [address] Jaime Grover MD [address] [place] [address] Social History Tobacco Use Types Packs/Day Years Used Date Smoking Tobacco: Former Cigarettes 2 3 0 04/23/1976 - 12/17/1977 Smokeless Tobacco: Never Alcohol Use Standard Drinks/Week Comments No 0 (1 standard drink = 0.6 oz pur e alcohol) PHQ-2 Answer Date Recorded PHQ-2 Score 4 01/31/2020 Comments No Sex and Gender Information Value Date Recorded Sex Assigned at Female 08/28/2018 12:23 AM CONSTRUCTION TEACHER Legal Sex Female 4:46 AM CONSTRUCTION TEACHER Gender Identity Female 08/28/2018 12:23 AM CONSTRUCTION TEACHER Sexual Orientation Straight 10/11/2019 2: 51 PM CONSTRUCTION TEACHER COVID-19 Exposure Response Date Recorded In the last month, have you been in contact with someone who was confirmed or suspected to have Coronavirus / COVID-19? No / Unsure 06/23/2020 10:33 AM CONSTRUCTION TEACHER documented as of this encounter Plan of Treatment Upcoming Encounters Date Type Department Care Team (Late st Contact Info) Description 04/25/2025 1:30 PM CDT Office Visit [facility] [address] [phone] Alex Johnson MD [address] [place] [address] documented as of this encounter Visit Diagnoses Not on filedocumented in this encounter Additional Health Concerns Infection Onset Date Last Indicated Resolved Time COVID-19 06/23/2020 06/23/2020 07/14/2020 11:4 0 PM CONSTRUCTION TEACHER Recovered COVID 07/08/2020 07/08/2020 09/21/2020 1 1:39 PM CONSTRUCTION TEACHER Assessment Noted Time PHQ-9 Depression Total Score: 11 020 2:18 PM CDT documented as of this encounter Care Teams Road Sign Installer Relationship Specialty Start Date End Date Bonny Cooley MD [address] [place] [address] PCP - General Family Practice 09/30/15 06/02/21 Aminata Youssef MD [facility] & [address] [address] PCP - General Internal Medicine 06/03/21 Bettye Gonzales MD MD Internal Medicine 04/10/15 Antony Chakraborty MD [facility] [address] [phone] INTERNAL MEDICINE - ENDOCRINOLOGY, DIABETES & METABOLISM 11/13/15 Mateo Cheema MD [address] [facility] [address] [id number] Internal Medicine 08/06/16 Ermias Colón MD [facility] [address] [address] Referring Physician Neurology 09/23/16 Bonny Cooley MD [address] [address] Assigned PCP 10/05/15 07/26/20 Pam Hernandez MD [address] [place] [address] [place] [address] Assigned Behavioral Health Provider 05/30/20 08/01/21 Lázaro Horowitz MD [facility] [address] [place] [address] Assigned Rheumatology Provider 05/30/20 07/19/20 Jaime Grover MD [address] [place] [address] Assigned Gastroenterology Provider 05/30/20 11/14/21 [place] [address] [place] [address] [phone] Assigned Pediatric Specialist Provider 05/30/20 09/07/20 Toni Sheth MD [address] [place] [address] Assigned Surgical Provider 05/30/20 04/18/21 Bertram Elizabeth MD [address] [address] Assigned PCP 07/27/20 04/25/21 Bonny Cooley MD [address] [address] Assigned PCP 04/26/21 08/15/21 Bertram Elizabeth MD [address] [address] Assigned PCP 08/16/21 10/24/21 Alex Johnson MD [address] [place] [address] Assigned Rheumatology Provider 10/18/21 04/15/23 Bonny Cooley MD [address] [address] Assigned PCP 10/25/21 04/02/22 Bertram Elizabeth MD [address] [address] Assigned PCP 04/03/22 07/23/22 Bertram Elizabeth MD [address] [address] Assigned PCP 10/02/22 04/29/23 Alex Johnson MD [address] [place] [address] Rheumatology 10/04/24 documented as of this encounter
--- OUTSIDE RECORDS SUMMARY | 2024-10-28 14:51 | XMS_ITS | Encounter Summary ---
Author Organization [facility] Address [address] [place] [address] Care Team Providers Care Inspector Plating Name Role Phone Bettye Gonzales MD Unavailable + Bonny Cooley MD Primary Care Provider [phone] Antony Chakraborty MD Unavailable Mateo Cheema MD Unavailable [phone] Ermias Colón MD Unavailable Bonny Cooley MD Unavailable [phone] aPm Hernandez MD Unavailable [phone] Lázaro Horowitz MD Unavailable Jaime Grover MD Unavailable [phone] Toni Sheth MD Unavailable Toni Sheth MD Unavailable Bertram Elizabeth MD Unavailable Bonny Cooley MD Unavailable Aminata Youssef MD Primary Care Provider Bertram Elizabeth MD Unavailable Alex Johnson MD Unavailable Bonny Cooley MD Unavailable Bertram Elizabeth MD Unavailable Bertram lEizabeth MD Unavailable Alex Johnson MD Unavailable [phone] Reason for Visit * Reason Onset Date Comments Refill Request 12/02/2019 CELECOXIB 100MG CAPS Encounter Details Date Type Department Care Team (Late st Contact Info) Description 12/02/[address] [address] Bonny Cooley MD [address] [address] Refill Request (CELECOXIB 100MG CAPS [...] Assigned at Female 08/28/2018 12:23 AM RUBBER AND PLASTICS WORKER Legal Sex Female 4:46 AM RUBBER AND PLASTICS WORKER Gender Identity Female 08/28/2018 12:23 AM RUBBER AND PLASTICS WORKER Sexual Orientation Straight 10/11/2019 2: 51 PM RUBBER AND PLASTICS WORKER COVID-19 Exposure Response Date Recorded In the [...] CDT Telephone Visit with Pam Hernandez MD [facility] ([facility]) [address] [place] [phone] NSAID Medications Failed - 12/02/2019 4:45 PM [...] Description 04/25/2025 1:30 PM CDT Office Visit [facility] [place] [address] [facility] 200 [place] [address] Alex Johnson MD 515 [facility] 88 [place], [place] [address] documented as of this encounter Visit Diagnoses Diagnosis Osteoarthritis, unspecified osteoarthritis type, unspecified site documented in this encounter Additional Health Concerns Infection Onset Date Last Indicated Resolved Time COVID-19 06/23/2020 06/23/2020 07/14/2020 11:4 0 PM RUBBER AND PLASTICS WORKER Recovered COVID 07/08/2020 07/08/2020 09/21/2020 1 1:39 PM RUBBER AND PLASTICS WORKER Assessment Noted Time PHQ-9 Depression Total Score: 15 020 2:41 PM RUBBER AND PLASTICS WORKER documented as of this encounter Care Teams Inspector Plating Relationship Specialty Start Date End Date Bonny Cooley MD [address] [place] [address] PCP - General Family Practice 09/30/15 06/02/21 Aminata Yosusef MD [facility] [address] [place] [address] PCP - General Internal Medicine 06/03/21 Bettye Gonzales MD Internal Medicine 04/10/15 Antony Chakraborty MD 420 [facility] 101 [place] [address] INTERNAL MEDICINE - ENDOCRINOLOGY, DIABETES & METABOLISM 11/13/15 Mateo Cheema MD [address] [address] Internal Medicine 08/06/16 Ermias Colón MD [address] [address] Referring Physician Neurology 09/23/16 Bonny Cooley MD [address] [id number] Assigned PCP 10/05/15 07/26/20 Pam Hernandez MD [address] [place] [address] [place] [address] Assigned Behavioral Health Provider 05/30/20 08/01/[address] [facility] [address] [place] [address] Assigned Rheumatology Provider 05/30/20 07/19/20 Jaime Grover MD [address] [place] [address] Assigned Gastroenterology Provider 05/30/20 11/14/21 Toni Sheth MD [address] [place] [address] [id number] Assigned Pediatric Specialist Provider 05/30/20 09/07/20 Toni Sheth MD [address] [place] [address] [phone] Assigned Surgical Provider 05/30/20 04/18/21 Bertram Elizabeth MD 0 [facility] 200 [place] [address] Assigned PCP 07/27/20 04/25/21 Bonny Cooley MD [address] [address] Assigned PCP 04/26/21 08/15/21 Bertram Elizabeth MD [address] [address] Assigned PCP 08/16/21 10/24/21 Alex Johnson MD [address] [place] [address] Assigned Rheumatology Provider 10/18/21 04/15/23 Bonny Cooley MD [address] [address] Assigned PCP 10/25/21 04/02/22 Bertram Elizabeth MD [address] [address] Assigned PCP 04/03/22 07/23/22 Bertram Elizabeth MD [address] [address] Assigned PCP 10/02/22 04/29/23 Alex Johnson MD [address] [place] [address] Rheumatology 10/04/24 documented as of this encounter
--- OUTSIDE RECORDS SUMMARY | 2024-10-28 14:51 | XMS_ITS | Encounter Summary ---
Author Organization [place] Address [address] [place] [address] Care Team Providers Care Digital Marketing Lead Name Role Phone Bettye Gonzales MD Unavailable + Bonny Cooley MD Primary Care Provider Antony Chakraborty MD Unavailable [phone] Mateo Cheema MD Unavailable Ermias Colón MD Unavailable Bonny Cooley MD Unavailable [phone] Pam Hernandez MD Unavailable [phone] Lázaro Horowitz MD Unavailable Jaime Grover MD Unavailable Toni Sheth MD Unavailable Toni Sheth MD Unavailable Bertram Elizabeth MD Unavailable Bonny Cooley MD Unavailable [phone] Aminata Youssef MD Primary Care Provider [phone] Bertram Elizabeth MD Unavailable [phone] Alex Johnson MD Unavailable [phone] Bonny Cooley MD Unavailable [phone] Bertram Elizabeth MD Unavailable [phone] Bertram Elizabeth MD Unavailable [phone] Alex Johnson MD Unavailable Encounter Details Date Type Department Care Team (Late st Contact Info) Description 06/08/2020 MyC Medical Advice [facility] [address] [address] Jaime Grover MD [address] [place] [address] Social History Tobacco Use Types Packs/Day Years Used Date Smoking Tobacco: Former Cigarettes 2 3 0 04/23/1976 - 12/17/1977 Smokeless Tobacco: Never Alcohol Use Standard Drinks/Week Comments No 0 (1 standard drink = 0.6 oz pur e alcohol) PHQ-2 Answer Date Recorded PHQ-2 Score 4 01/31/2020 Comments No Sex and Gender Information Value Date Recorded Sex Assigned at Female 08/28/2018 12:23 AM HIGH SCHOOL COACH Legal Sex Female 4:46 AM HIGH SCHOOL COACH Gender Identity Female 08/28/2018 12:23 AM HIGH SCHOOL COACH Sexual Orientation Straight 10/11/2019 2: 51 PM HIGH SCHOOL COACH COVID-19 Exposure Response Date Recorded In the last month, have you been in contact with someone who was confirmed or suspected to have Coronavirus / COVID-19? No / Unsure 06/06/2020 10:42 AM CDT documented as of this encounter Plan of Treatment Upcoming Encounters Date Type Department Care Team (Late Contact Info) Description 04/25/2025 1:30 PM CDT Office Visit [facility] [address] [phone] Alex Johnson MD [address] [place] [address] documented as of this encounter Visit Diagnoses Not on filedocumented in this encounter Additional Health Concerns Infection Onset Date Last Indicated Resolved Time COVID-19 06/23/2020 06/23/2020 07/14/2020 11:4 0 PM HIGH SCHOOL COACH Recovered COVID 07/08/2020 07/08/2020 09/21/2020 1 1:39 PM HIGH SCHOOL COACH Assessment Noted Time PHQ-9 Depression Total Score: 11 020 2:18 PM CDT documented as of this encounter Care Teams Digital Marketing Lead Relationship Specialty Start Date End Date Bonny Cooley MD [address] [place] [address] PCP - General Family Practice 09/30/15 06/02/21 Aminata Youssef MD [facility] & [address] [address] PCP - General Internal Medicine 06/03/21 Bettye Gonzales MD MD Internal Medicine 04/10/15 Antony Chakraborty MD [address] [phone] INTERNAL MEDICINE - ENDOCRINOLOGY, DIABETES & METABOLISM 11/13/15 Mateo Cheema MD 420 [facility] [address] [address] Internal Medicine 08/06/16 Ermias Colón MD 420 [facility] [address] [address] Referring Physician Neurology 09/23/16 Bonny Cooley MD [address] [address] Assigned PCP 10/05/15 07/26/20 Pam Hernandez MD [address] [place] [address] [place] [address] Assigned Behavioral Health Provider 05/30/20 08/01/21 Lázaro Horowitz MD [facility] [address] [place] [address] Assigned Rheumatology Provider 05/30/20 07/19/20 Jaime Grover MD [address] [place] [address] Assigned Gastroenterology Provider 05/30/20 11/14/21 [place] [address] [place] [address] [id number] Assigned Pediatric Specialist Provider 05/30/20 09/07/20 Toni Sheth MD [address] [place] [address] Assigned Surgical Provider 05/30/20 04/18/21 Bertram Elizabeth MD [address] [address] Assigned PCP 07/27/20 04/25/21 Bonny Cooley MD [address] [address] Assigned PCP 04/26/21 08/15/21 Bertram Elizabeth MD [address] [address] Assigned PCP 08/16/21 10/24/21 Alex Johnson MD [address] [place] [address] Assigned Rheumatology Provider 10/18/21 04/15/23 Bonny Cooley MD [address] [address] Assigned PCP 10/25/21 04/02/22 Bertram Elizabeth MD [address] [address] Assigned PCP 04/03/22 07/23/22 Bertram Elizabeth MD [address] [address] Assigned PCP 10/02/22 04/29/23 Alex Johnson MD [address] [place] [address] Rheumatology 10/04/24 documented as of this encounter
--- OUTSIDE RECORDS SUMMARY | 2024-10-28 14:51 | XMS_ITS | Encounter Summary ---
Author Organization [place] Address [address] [place] [address] Care Team Providers Care Retail Assistant Name Role Phone Bettye Gonzales MD Unavailable + Bonny Cooley MD Primary Care Provider [phone] Antony Chakraborty MD Unavailable Mateo Cheema MD Unavailable Ermias Colón MD Unavailable Bonny Cooley MD Unavailable [phone] Pam Hernandez MD Unavailable [phone] Lázaro Horowitz MD Unavailable Jaime Grover MD Unavailable Toni Sheth MD Unavailable Toni Sheth MD Unavailable Bertram Elizabeth MD Unavailable Bonny Cooley MD Unavailable [phone] Aminata Youssef MD Primary Care Provider Bertram Elizabeth MD Unavailable Alex Johnson MD Unavailable Bonny Cooley MD Unavailable [phone] Bertram Elizabeth MD Unavailable Bertram Elizabeth MD Unavailable Alex Johnson MD Unavailable [phone] Encounter Details Date Type Department Care Team (Late st Contact Info) Description 07/11/2020 MyC Medical Advice [facility] [address] [place] [address] Bonny Cooley MD [address] [address] Social History Tobacco Use Types [...] Sex Assigned at Female 08/28/2018 12:23 AM SPIN INSTRUCTOR Legal Sex Female 4:46 AM SPIN INSTRUCTOR Gender Identity Female 08/28/2018 12:23 AM SPIN INSTRUCTOR Sexual Orientation Straight 10/11/2019 2: 51 PM SPIN INSTRUCTOR COVID-19 Exposure Response Date Recorded In the last month, have you been in contact with someone who was confirmed or suspected to have Coronavirus / COVID-19? No / Unsure 07/08/2020 8:58 AM SPIN INSTRUCTOR documented as of this encounter Plan of Treatment Upcoming Encounters Date Type Department Care Team (Late st Contact Info) Description 04/25/2025 1:30 PM CDT Office Visit [facility] [address] [address] Alex Johnson MD [address] [place] [address] documented as of this encounter Visit Diagnoses Not on filedocumented in this encounter Additional Health Concerns Infection Onset Date Last Indicated Resolved Time COVID-19 06/23/2020 06/23/2020 07/14/2020 11:4 0 PM SPIN INSTRUCTOR Recovered COVID 07/08/2020 07/08/2020 09/21/2020 1 1:39 PM SPIN INSTRUCTOR Assessment Noted Time PHQ-9 Depression Total Score: 11 020 2:18 PM CDT documented as of this encounter Care Teams Retail Assistant Relationship Specialty Start Date End Date Bonny Cooley MD [address] [place] [address] PCP - General Family Practice 09/30/15 06/02/21 Aminata Youssef MD [facility] & [address] [address] PCP - General Internal Medicine 06/03/21 Bettye Gonzales MD Internal Medicine 04/10/15 Antony Chakraborty MD [address] [address] INTERNAL MEDICINE - ENDOCRINOLOGY, DIABETES & METABOLISM 11/13/15 Mateo Cheema MD [address] [address] Internal Medicine 08/06/16 Ermias Colón MD [address] [address] Referring Physician Neurology 09/23/16 Bonny Cooley MD [address] [address] Assigned PCP 10/05/15 07/26/20 Pam Hernandez MD [address] [place] [address] [place] [address] Assigned Behavioral Health Provider 05/30/20 08/01/21 Lázaro Horowitz MD [address] [address] Assigned Rheumatology Provider 05/30/20 07/19/20 Jaime Grover MD [address] [place] [address] Assigned Gastroenterology Provider 05/30/20 11/14/21 Toni Sheth MD [address] [place] [address] [phone] Assigned Pediatric Specialist Provider 05/30/20 09/07/20 Toni Sheth MD [address] [place] [address] [id number] Assigned Surgical Provider 05/30/20 04/18/21 Bertram Elizabeth MD [address] [address] Assigned PCP 07/27/20 04/25/21 Bonny Cooley MD [address] [address] Assigned PCP 04/26/21 08/15/21 Bertram Elizabeth MD [address] [address] Assigned PCP 08/16/21 10/24/21 Alex Johnson MD [address] [place] [address] Assigned Rheumatology Provider 10/18/21 04/15/23 Bonny Cooley MD [address] [place] [address] Assigned PCP 10/25/21 04/02/22 Bertram Elizabeth MD [address] [place] [address] Assigned PCP 04/03/22 07/23/22 Bertram Elizabeth MD [address] [place] [address] Assigned PCP 10/02/22 04/29/23 Alex Johnson MD [address] [place] [address] Rheumatology 10/04/24 documented as of this encounter
--- OUTSIDE RECORDS SUMMARY | 2024-10-28 14:51 | XMS_ITS | Encounter Summary ---
Author Organization [place] Address [address] [place] [address] Care Team Providers Care Neon Sign Maker Name Role Phone Bettye Gonzales MD Unavailable + Bonny Cooley MD Primary Care Provider Antony Chakraborty MD Unavailable Mateo Cheema MD Unavailable [phone] Ermias Colón MD Unavailable Bonny Cooley MD Unavailable [phone] Pam Hernandez MD Unavailable [phone] Lázaro Horowitz MD Unavailable Jaime Grover MD Unavailable Toni Sheth MD Unavailable Toni Sheth MD Unavailable Bertram Elizabeth MD Unavailable Bonny Cooley MD Unavailable [phone] Aminata Youssef MD Primary Care Provider Bertram Elizabeth MD Unavailable Alex Johnson MD Unavailable Bonny Cooley MD Unavailable [phone] Bertram Elizabeth MD Unavailable Bertram Elizabeth MD Unavailable [phone] Alex Johnson MD Unavailable [phone] Encounter Details Date Type Department Care Team (Late st Contact Info) Description 04/08/2020 MyC Medical Advice [address] [address] Rima Fransisco Social History Tobacco [...] Sex Assigned at Female 08/28/2018 12:23 AM ATTENDANT HONOR BAR Legal Sex Female 4:46 AM ATTENDANT HONOR BAR Gender Identity Female 08/28/2018 12:23 AM ATTENDANT HONOR BAR Sexual Orientation Straight 10/11/2019 2: 51 PM ATTENDANT HONOR BAR COVID-19 Exposure Response Date Recorded In the [...] Office Visit [facility] [address] [address] Alex Johnson MD [address] [place] [address] documented as of this encounter Visit Diagnoses Not on filedocumented in this encounter Additional Health Concerns Infection Onset Date Last Indicated Resolved Time COVID-19 06/23/2020 06/23/2020 07/14/2020 11:4 0 PM ATTENDANT HONOR BAR Recovered COVID 07/08/2020 07/08/2020 09/21/2020 1 1:39 PM ATTENDANT HONOR BAR Assessment Noted Time PHQ-9 Depression Total Score: 11 020 2:18 PM CDT documented as of this encounter Care Teams Neon Sign Maker Relationship Specialty Start Date End Date Bonny Cooley MD [address] [place] [address] PCP - General Family Practice 09/30/15 06/02/21 Aminata Youssef MD [facility] [address] [place] [address] PCP - General Internal Medicine 06/03/21 Bettye Gonzales MD MD Internal Medicine 04/10/15 Antony Chakraborty MD [address] [address] INTERNAL MEDICINE - ENDOCRINOLOGY, DIABETES & METABOLISM 11/13/15 Mateo Cheema MD [address] [address] Internal Medicine 08/06/16 Ermias Colón MD [address] [address]406[address] Referring Physician Neurology 09/23/16 Bonny Cooley MD [address] [address] Assigned PCP 10/05/15 07/26/20 Pam Hernandez MD [address] [place] [address] M[place] LYNNE [address] Assigned Behavioral Health Provider 05/30/20 08/01/21 Lázaro Horowitz MD [place] [address] [address] [place] [address] Assigned Rheumatology Provider 05/30/20 07/19/20 Jaime Grover MD [address] [place] [address] Assigned Gastroenterology Provider 05/30/20 11/14/21 Tnoi Sheth MD [address] [place] [address] Assigned Pediatric Specialist Provider 05/30/20 09/07/20 Toni Sheth MD [address] [place] [address] Assigned Surgical Provider 05/30/20 04/18/21 Bertram Elizabeth MD [address] [place] [address] Assigned PCP 07/27/20 04/25/21 Bonny Cooley MD [address] [address] Assigned PCP 04/26/21 08/15/21 Bertram Elizabeth MD 0 [facility] 200 [place] [address] Assigned PCP 08/16/21 10/24/21 Alex Johnson MD [address] [address] Assigned Rheumatology Provider 10/18/21 04/15/23 Bonny Cooley MD [address] [address] Assigned PCP 10/25/21 04/02/22 Bertram Elizabeth MD [address] [address] Assigned PCP 04/03/22 07/23/22 Bertram Elizabeth MD [address] [address] Assigned PCP 10/02/22 04/29/23 Alex Johnson MD [address] [place] [address] Rheumatology 10/04/24 documented as of this encounter
--- OUTSIDE RECORDS SUMMARY | 2024-10-28 14:51 | XMS_ITS | Encounter Summary ---
Author Organization [place] Address [address] [place] [address] Care Team Providers Care Preforming Machine Operator Name Role Phone Bettye Gonzales MD Unavailable + Bonny Cooley MD Primary Care Provider [phone] Antony Chakraborty MD Unavailable [phone] Mateo Cheema MD Unavailable [phone] Ermias Colón MD Unavailable Pam Hernandez MD Unavailable Jaime Grover MD Unavailable Toni Sheth MD Unavailable Bertram Elizabeth MD Unavailable [phone] Bonny Cooley MD Unavailable Aminata Youssef MD Primary Care Provider Bertram Elizabeth MD Unavailable Alex Johnson MD Unavailable Bonny Cooley MD Unavailable [phone] Bertram Elizabeth MD Unavailable Bertram Elizabeth MD Unavailable [phone] Alex Johnson MD Unavailable [phone] Encounter Details Date Type Department Care Team (Late st Contact Info) Description 09/23/2020 MyC Medical Advice [facility] Rhe[facility]ology [facility] [place] [address] [place] [phone] Toni Del Angel MD [facility] 420 [facility] [address] [place] [address] Social History Tobacco Use Types [...] Sex Assigned at Female 08/28/2018 12:23 AM ANIMAL CARE PROVIDER Legal Sex Female 4:46 AM ANIMAL CARE PROVIDER Gender Identity Female 08/28/2018 12:23 AM ANIMAL CARE PROVIDER Sexual Orientation Straight 10/11/2019 2: 51 PM ANIMAL CARE PROVIDER documented as of this encounter Plan of Treatment Upcoming Encounters Date Type Department Care Team (Late st Contact Info) Description 04/25/2025 1:30 PM CDT Office Visit [facility] Special[facility] Clinic [address] [phone] Alex Johnson MD [address] [place] [address] [address] [place], [place] 169665 documented as of this encounter Visit Diagnoses Not on filedocumented in this encounter Additional Health Concerns Assessment Noted Time PHQ-9 Depression Total Score: 11 020 2:18 PM CDT documented as of this encounter Care Teams Preforming Machine Operator Relationship Specialty Start Date End Date Bonny Cooley MD [address] [place] [address] PCP - General Family Practice 09/30/15 06/02/21 Aminata Youssef MD [facility] - [address] [address] PCP - General Internal Medicine 06/03/21 Bettye Gonzales MD Internal Medicine 04/10/15 Antony Chakraborty MD [address] [place] [address] INTERNAL MEDICINE - ENDOCRINOLOGY, DIABETES & METABOLISM 11/13/15 Mateo Cheema MD [address] [address] Internal Medicine 08/06/16 Ermias Colón MD [address] [address] Referring Physician Neurology 09/23/16 Pam Henrandez MD [address] [place] [address] [place] [id number] Assigned Behavioral Health Provider 05/30/20 08/01/21 Jaime Grover MD [address] [place] [address] Assigned Gastroenterology Provider 05/30/20 11/14/21 Toni Sheth MD [address] [place] [address] Assigned Surgical Provider 05/30/20 04/18/21 Bertram Elizabeth MD [address] [place] [address] Assigned PCP 07/27/20 04/25/21 Bonny Cooley MD [address] [place] [address] Assigned PCP 04/26/21 08/15/21 Bertram Elizabeth MD [address] [place] [address] Assigned PCP 08/16/21 10/24/21 Alex Johnson MD [address] [place] [address] Assigned Rheumatology Provider 10/18/21 04/15/23 Bonny Cooley MD [address] [place] [address] Assigned PCP 10/25/21 04/02/22 Bertram Elizabeth MD [address] [place] [address] Assigned PCP 04/03/22 07/23/22 Bertram Elizabeth MD [address] [place] [address] Assigned PCP 10/02/22 04/29/23 Alex Johnson MD [address] [place] [address] 230945 Rheumatology 10/04/24 documented as of this encounter
--- OUTSIDE RECORDS SUMMARY | 2024-10-28 14:51 | XMS_ITS | Encounter Summary ---
Author Organization [place] Address [address] [place] [address] Care Team Providers Care Wheel Adjuster Name Role Phone Bettye Gonzales MD Unavailable + Bonny Cooley MD Primary Care Provider Antony Chakraborty MD Unavailable Mateo Cheema MD Unavailable [phone] Ermias Colón MD Unavailable Bonny Cooley MD Unavailable [phone] Pam Hernandez MD Unavailable [phone] Lázaro Horowitz MD Unavailable Jaime Grover MD Unavailable Toni Sheth MD Unavailable Toni Sheth MD Unavailable Bertram Elizabeth MD Unavailable Bonny Cooley MD Unavailable [phone] Aminata Youssef MD Primary Care Provider Bertram Elizabeth MD Unavailable [phone] Alex Johnson MD Unavailable Bonny Cooley MD Unavailable [phone] Bertram Elizabeth MD Unavailable Bertram Elizabeth MD Unavailable Alex Johnson MD Unavailable Reason for Visit * Reason Onset Date Comments Appointment 07/26/2019 Encounter Details Date Type Department Care Team (Late st Contact Info) Description 07/26/[address] [address] Bonny Cooley MD [address] [address] Appointment Social History Tobacco Use [...] Sex Assigned at Female 08/28/2018 12:23 AM ORTHOTIC FINISH GRINDING TECHNICIAN Legal Sex Female 4:46 AM ORTHOTIC FINISH GRINDING TECHNICIAN Gender Identity Female 08/28/2018 12:23 AM ORTHOTIC FINISH GRINDING TECHNICIAN Sexual Orientation Straight 10/11/2019 2: 51 PM ORTHOTIC FINISH GRINDING TECHNICIAN documented as of this encounter Miscellaneous Notes * Telephone Encounter - Marcus Rothman - 07/26/2019 2:48 PM CST We did not reach Heidi Miller, we left a message with our contact number [phone]. If we donot hear from them within the next 3 business days we will mail a letter offering our scheduling services. If they do call to schedule, in the future, we will inform you of the outcome. Thank you for your referral, [facility] Outpatient Intake OTIC FINISH GRINDING TECHNICIAN documented in this encounter Plan of Treatment Upcoming Encounters Date Type Department Care Team (Late st Contact Info) Description 04/25/2025 1:30 PM CDT Office Visit [facility] [place] [address] [facility] [address] [place] [phone] Alex Johnson MD [address] [place] [address] 88 [place], [place] [phone] documented as of this encounter Visit Diagnoses Not on filedocumented in this encounter Additional Health Concerns Infection Onset Date Last Indicated Resolved Time COVID-19 06/23/2020 06/23/2020 07/14/2020 11:4 0 PM ORTHOTIC FINISH GRINDING TECHNICIAN Recovered COVID 07/08/2020 07/08/2020 09/21/2020 1 1:39 PM ORTHOTIC FINISH GRINDING TECHNICIAN Assessment Noted Time PHQ-9 Depression Total Score: 16 019 2:39 PM ORTHOTIC FINISH GRINDING TECHNICIAN documented as of this encounter Care Teams Wheel Adjuster Relationship Specialty Start Date End Date Bonny Cooley MD [address] [place] [address] PCP - General Family Practice 09/30/15 06/02/21 Aminata Youssef MD [facility] [address] [place] [address] PCP - General Internal Medicine 06/03/21 Bettye Gonzales MD Internal Medicine 04/10/15 Antony Chakraborty MD [address] [place] [address] 101 [place] [address] INTERNAL MEDICINE - ENDOCRINOLOGY, DIABETES & METABOLISM 11/13/15 Mateo Cheema MD [address] [address] Internal Medicine 08/06/16 Ermias Colón MD 420 [facility] 101 [place] [address] Referring Physician Neurology 09/23/16 Bonny Cooley MD [address] [address] Assigned PCP 10/05/15 07/26/20 Pam Hernandez MD [address] [place] [address] [place] [address] Assigned Behavioral Health Provider 05/30/20 08/01/21 Lázaro Horowitz MD [address] [phone] Assigned Rheumatology Provider 05/30/20 07/19/20 Jaime Grover MD [address] [place] [address] Assigned Gastroenterology Provider 05/30/20 11/14/21 Toni Sheth MD [address] [place] [address] [phone] Assigned Pediatric Specialist Provider 05/30/20 09/07/20 Toni Sheth MD [address] [place] [address] [id number] Assigned Surgical Provider 05/30/20 04/18/21 Bertram Elizabeth MD 0 [facility] 200 [place] [address] Assigned PCP 07/27/20 04/25/21 Bonny Cooley MD 0 [facility] 200 [place] [address] Assigned PCP 04/26/21 08/15/21 Bertram Elizabeth MD 0 [facility] 200 [place] [address] Assigned PCP 08/16/21 10/24/21 Alex Johnson MD [address] [place] [address] Assigned Rheumatology Provider 10/18/21 04/15/23 Bonny Cooley MD [address] [place] [address] Assigned PCP 10/25/21 04/02/22 Bertram Elizabeth MD [address] [address] Assigned PCP 04/03/22 07/23/22 Bertram Elizabeth MD [address] [place] [address] Assigned PCP 10/02/22 04/29/23 Alex Johnson MD [address] [place] [address] Rheumatology 10/04/24 documented as of this encounter
--- OUTSIDE RECORDS SUMMARY | 2024-10-28 14:51 | XMS_ITS | Encounter Summary ---
Author Organization [facility] Address [address] [place] [address] Care Team Providers Care Tennis Net Maker Name Role Phone Bettye Gonzales MD Unavailable + Bonny Cooley MD Primary Care Provider [phone] Antony Chakraborty MD Unavailable Mateo Cheema MD Unavailable Ermias Colón MD Unavailable Bonny Cooley MD Unavailable [phone] Pam Hernandez MD Unavailable [phone] Lázaro Horowitz MD Unavailable Jaime Grover MD Unavailable Toni Sheth MD Unavailable Toni Sheth MD Unavailable Bertram Elizabeth MD Unavailable [phone] Bonny Cooley MD Unavailable Aminata Youssef MD Primary Care Provider Bertram Elizabeth MD Unavailable Alex Johnson MD Unavailable Bonny Cooley MD Unavailable [phone] Bertram Elizabeth MD Unavailable Bertram Elizabeth MD Unavailable [phone] Alex Johnson MD Unavailable Encounter Details Date Type Department Care Team (Late st Contact Info) Description 06/26/[address] [facility] [place] [id number] [facility] 3rd [place] [address] Mateo Cheema MD 420 [facility] 101 [place] [address] Social History Tobacco Use Types [...] Sex Assigned at Female 08/28/2018 12:23 AM SENIOR REGULATORY AFFAIRS SPECIALIST Legal Sex Female 4:46 AM SENIOR REGULATORY AFFAIRS SPECIALIST Gender Identity Female 08/28/2018 12:23 AM SENIOR REGULATORY AFFAIRS SPECIALIST Sexual Orientation Straight 10/11/2019 2: 51 PM SENIOR REGULATORY AFFAIRS SPECIALIST COVID-19 Exposure Response Date Recorded In the last month, have you been in contact with someone who was confirmed or suspected to have Coronavirus / COVID-19? No / Unsure 06/23/2020 10:33 AM SENIOR REGULATORY AFFAIRS SPECIALIST documented as of this encounter Plan of Treatment Upcoming Encounters Date Type Department Care Team (Late st Contact Info) Description 04/25/2025 1:30 PM CDT Office Visit [facility] [address] [address] Alex Johnson MD [address] [place] [address] 88 [place] [address] documented as of this encounter Visit Diagnoses Not on filedocumented in this encounter Additional Health Concerns Infection Onset Date Last Indicated Resolved Time COVID-19 06/23/2020 06/23/2020 07/14/2020 11:4 0 PM SENIOR REGULATORY AFFAIRS SPECIALIST Recovered COVID 07/08/2020 07/08/2020 09/21/2020 1 1:39 PM SENIOR REGULATORY AFFAIRS SPECIALIST Assessment Noted Time PHQ-9 Depression Total Score: 11 020 2:18 PM CDT documented as of this encounter Care Teams Tennis Net Maker Relationship Specialty Start Date End Date Bonny Cooley MD [address] [place] [address] PCP - General Family Practice 09/30/15 06/02/21 Aminata Youssef MD [facility] & [address] [address] PCP - General Internal Medicine 06/03/21 Bettye Gonzales MD Internal Medicine 04/10/15 Antony Chakraborty MD [address] [address] INTERNAL MEDICINE - ENDOCRINOLOGY, DIABETES & METABOLISM 11/13/15 Mateo Cheema MD [address] 308935 Internal Medicine 08/06/16 Ermias Colón MD [address] [address] Referring Physician Neurology 09/23/16 Bonny Cooley MD [address] [address] Assigned PCP 10/05/15 07/26/20 Pam Hernandez MD [address] [place] [address] [place] [address] Assigned Behavioral Health Provider 05/30/20 08/01/21 Lázaro Horowitz MD [address] [address] Assigned Rheumatology Provider 05/30/20 07/19/20 Jaime Grover MD [address] [place] [address] Assigned Gastroenterology Provider 05/30/20 11/14/21 Toni Sheth MD [address] [place] [address] [phone] Assigned Pediatric Specialist Provider 05/30/20 09/07/20 Toni Sheth MD [address] [place] [address] [phone] Assigned Surgical Provider 05/30/20 04/18/21 Bertram Elizabeth MD [address] [address] Assigned PCP 07/27/20 04/25/21 Bonny Cooley MD [address] [address] Assigned PCP 04/26/21 08/15/21 Bertram Elizabeth MD [address] [address] Assigned PCP 08/16/21 10/24/21 Alex Johnson MD [address] [place] [address] Assigned Rheumatology Provider 10/18/21 04/15/23 Bonny Cooley MD [address] [place] [address] Assigned PCP 10/25/21 04/02/22 Bertram Elizabeth MD [address] [place] [address] Assigned PCP 04/03/22 07/23/22 Bertram Elizabeth MD [address] [place] [address] Assigned PCP 10/02/22 04/29/23 Alex Johnson MD [address] [place] [address] Rheumatology 10/04/24 documented as of this encounter
--- OUTSIDE RECORDS SUMMARY | 2024-10-28 14:51 | XMS_ITS | Encounter Summary ---
Author Organization [facility] Address [address] [place] [address] Care Team Providers Care Insurance Loss Adjuster Name Role Phone Bettye Gonzales MD Unavailable + Bonny Cooley MD Primary Care Provider Antony Chakraborty MD Unavailable Mateo Cheema MD Unavailable [phone] Ermias Colón MD Unavailable Bonny Cooley MD Unavailable [phone] Pam eHrnandez MD Unavailable [phone] Lázaro Horowitz MD Unavailable Jaime Grover MD Unavailable [phone] Toni Sheth MD Unavailable Toni Sheth MD Unavailable Bertram Elizabeth MD Unavailable Bonny Cooley MD Unavailable [phone] Aminata Youssef MD Primary Care Provider Bertram Elizabeth MD Unavailable Alex Johnson MD Unavailable Bonny Cooley MD Unavailable [phone] Bertram Elizabeth MD Unavailable [phone] Bertram Elizabeth MD Unavailable [phone] Alex Johnson MD Unavailable Encounter Details Date Type Department Care Team (Late st Contact Info) Description 06/02/2020 MyC Medical Advice [facility] Clinic [address] [address] Jaime Grover MD [address] [place] [address] Social History Tobacco Use Types Packs/Day [...] Assigned at Female 08/28/2018 12:23 AM BUSINESS CONTINUITY ANALYST Legal Sex Female 4:46 AM BUSINESS CONTINUITY ANALYST Gender Identity Female 08/28/2018 12:23 AM BUSINESS CONTINUITY ANALYST Sexual Orientation Straight 10/11/2019 2: 51 PM BUSINESS CONTINUITY ANALYST COVID-19 Exposure Response Date Recorded In the last month, have you been in contact with someone who was confirmed or suspected to have Coronavirus / COVID-19? No / Unsure 06/04/2020 2:17 PM CDT documented as of this encounter Plan of Treatment Upcoming Encounters Date Type Department Care Team (Late Contact Info) Description 04/25/2025 1:30 PM CDT Office Visit [facility] [address] [phone] Alex Johnson MD [address] [place] [address] documented as of this encounter Visit Diagnoses Not on filedocumented in this encounter Additional Health Concerns Infection Onset Date Last Indicated Resolved Time COVID-19 06/23/2020 06/23/2020 07/14/2020 11:4 0 PM BUSINESS CONTINUITY ANALYST Recovered COVID 07/08/2020 07/08/2020 09/21/2020 1 1:39 PM BUSINESS CONTINUITY ANALYST Assessment Noted Time PHQ-9 Depression Total Score: 11 020 2:18 PM CDT documented as of this encounter Care Teams Insurance Loss Adjuster Relationship Specialty Start Date End Date Bonny Cooley MD [address] [place] [address] PCP - General Family Practice 09/30/15 06/02/21 Aminata Youssef MD [facility] & [address] [address] PCP - General Internal Medicine 06/03/21 Bettye Gonzales MD MD Internal Medicine 04/10/15 Antony Chakraborty MD [address] [id number] INTERNAL MEDICINE - ENDOCRINOLOGY, DIABETES & METABOLISM 11/13/15 Mateo Cheema MD [address] [facility] [address] [address] Internal Medicine 08/06/16 Ermias Colón MD [address] [facility] [address] 838375 Referring Physician Neurology 09/23/16 Bonny Cooley MD [address] [address] Assigned PCP 10/05/15 07/26/20 Pam Hernandez MD [address] [place] [address] [place] [address] Assigned Behavioral Health Provider 05/30/20 08/01/21 Lázaro Horowitz MD [facility] [address] [place] [address] Assigned Rheumatology Provider 05/30/20 07/19/20 Jaime Grover MD [address] [place] [address] Assigned Gastroenterology Provider 05/30/20 11/14/21 [place] [address] [place] [address] [phone] Assigned Pediatric Specialist Provider 05/30/20 09/07/20 Toni Sheth MD [address] [place] [address] Assigned Surgical Provider 05/30/20 04/18/21 Bertram Elizabeth MD [address] [address] Assigned PCP 07/27/20 04/25/21 Bonny Cooley MD [address] [address] Assigned PCP 04/26/21 08/15/21 Bertram Elizabeth MD [address] [address] Assigned PCP 08/16/21 10/24/21 Alex Johnson MD [address] [place] [address] Assigned Rheumatology Provider 10/18/21 04/15/23 Bonny Cooley MD [address] [address] Assigned PCP 10/25/21 04/02/22 Bertram Elizabeth MD [address] [address] Assigned PCP 04/03/22 07/23/22 Bertram Elizabeth MD [address] [address] Assigned PCP 10/02/22 04/29/23 Alex Johnson MD [address] [place] [address] Rheumatology 10/04/24 documented as of this encounter
--- OUTSIDE RECORDS SUMMARY | 2024-10-28 14:51 | XMS_ITS | Encounter Summary ---
Author Organization [facility] Address [address] [place] [address] Care Team Providers Care Oracle Scm Consultant Name Role Phone Bettye Gonzales MD Unavailable + Bonny Cooley MD Primary Care Provider [phone] Antony Chakraborty MD Unavailable Mateo Cheema MD Unavailable Ermias Colón MD Unavailable Bonny Cooley MD Unavailable [phone] Pam Hernandez MD Unavailable [phone] Lázaro Horowitz MD Unavailable Jaime Grover MD Unavailable Toni Sheth MD Unavailable Toni Sheth MD Unavailable Bertram Elizabeth MD Unavailable Bonny Cooley MD Unavailable [phone] Aminata Youssef MD Primary Care Provider Bertram Elizabeth MD Unavailable Alex Johnson MD Unavailable Bonny Cooley MD Unavailable [phone] Bertram Elizabeth MD Unavailable [phone] Bertram Elizabeth MD Unavailable [phone] Alex Johnson MD Unavailable Encounter Details Date Type Department Care Team (Late st Contact Info) Description 07/04/2020 MyC Medical Advice [facility] [address] [address] Jaime Grover MD [address] [place] [address] Social History Tobacco Use Types Packs/Day [...] Assigned at Female 08/28/2018 12:23 AM HEALTH CARE TECHNICIAN Legal Sex Female 4:46 AM HEALTH CARE TECHNICIAN Gender Identity Female 08/28/2018 12:23 AM HEALTH CARE TECHNICIAN Sexual Orientation Straight 10/11/2019 2: 51 PM HEALTH CARE TECHNICIAN COVID-19 Exposure Response Date Recorded In the last month, have you been in contact with someone who was confirmed or suspected to have Coronavirus / COVID-19? No / Unsure 06/23/2020 10:33 AM HEALTH CARE TECHNICIAN documented as of this encounter Plan of Treatment Upcoming Encounters Date Type Department Care Team (Late st Contact Info) Description 04/25/2025 1:30 PM CDT Office Visit [facility] [address] [phone] Alex Johnson MD [address] [place] [address] documented as of this encounter Visit Diagnoses Not on filedocumented in this encounter Additional Health Concerns Infection Onset Date Last Indicated Resolved Time COVID-19 06/23/2020 06/23/2020 07/14/2020 11:4 0 PM HEALTH CARE TECHNICIAN Recovered COVID 07/08/2020 07/08/2020 09/21/2020 1 1:39 PM HEALTH CARE TECHNICIAN Assessment Noted Time PHQ-9 Depression Total Score: 11 020 2:18 PM CDT documented as of this encounter Care Teams Oracle Scm Consultant Relationship Specialty Start Date End Date Bonny Cooley MD [address] [place] [address] PCP - General Family Practice 09/30/15 06/02/21 Aminata Youssef MD [facility] & [address] [address] PCP - General Internal Medicine 06/03/21 Bettye Gonzales MD MD Internal Medicine 04/10/15 Antony Chakraborty MD 420 [facility] [address] [phone] INTERNAL MEDICINE - ENDOCRINOLOGY, DIABETES & METABOLISM 11/13/15 Mateo Cheema MD [address] [facility] [address] [phone] Internal Medicine 08/06/16 Ermias Colón MD 420 [facility] [address] 7[address] Referring Physician Neurology 09/23/16 Bonny Cooley MD [address] [address] Assigned PCP 10/05/15 07/26/20 Pam Hernandez MD [address] [place] [address] [place] [address] Assigned Behavioral Health Provider 05/30/20 08/01/21 Lázaro Horowitz MD [facility] [address] [place] [address] Assigned Rheumatology Provider 05/30/20 07/19/20 Jaime Grover MD [address] [place] [address] Assigned Gastroenterology Provider 05/30/20 11/14/21 [place] [address] [place] [address] [phone] Assigned Pediatric Specialist Provider 05/30/20 09/07/20 Toni Sheth MD [address] [place] [address] Assigned Surgical Provider 05/30/20 04/18/21 Bertram Elizabeth MD [address] [address] Assigned PCP 07/27/20 04/25/21 Bonny Cooley MD [address] [address] Assigned PCP 04/26/21 08/15/21 Bertram Elizabeth MD [address] [address] Assigned PCP 08/16/21 10/24/21 Alex Johnson MD [address] [place] [address] Assigned Rheumatology Provider 10/18/21 04/15/23 Bonny Cooley MD [address] [address] Assigned PCP 10/25/21 04/02/22 Bertram Elizabeth MD [address] [address] Assigned PCP 04/03/22 07/23/22 Bertram Elizabeth MD [address] [address] Assigned PCP 10/02/22 04/29/23 Alex Johnson MD [address] [place] [address] Rheumatology 10/04/24 documented as of this encounter
--- OUTSIDE RECORDS SUMMARY | 2024-10-28 14:52 | XMS_ITS | Encounter Summary ---
Author Organization [facility] Address [address] [place] [address] Care Team Providers Care Director Consumer Name Role Phone Bettye Gonzales MD Unavailable + Bonny Cooley MD Primary Care Provider [phone] Antony Chakraborty MD Unavailable Mateo Cheema MD Unavailable Ermias Colón MD Unavailable Bonny Cooley MD Unavailable [phone] Pam Hernandez MD Unavailable [phone] Lázaro Horowitz MD Unavailable Jaime Grover MD Unavailable Toni Sheth MD Unavailable Toni Sheth MD Unavailable Bertram Elizabeth MD Unavailable Bonny Cooley MD Unavailable [phone] Aminata Youssef MD Primary Care Provider Bertram Elizabeth MD Unavailable [phone] Alex Johnson MD Unavailable [phone] Bonny Cooley MD Unavailable [phone] Bertram Elizabeth MD Unavailable [phone] Bertram Elizabeth MD Unavailable [phone] Alex Johnson MD Unavailable Encounter Details Date Type Department Care Team (Late st Contact Info) Description 05/24/2019 MyC Medical Advice [facility] Rheumatology Clinic [address] [address] Toni Del Angel MD [facility] 420 [facility] [address] [place] [address] Social History Tobacco Use Types [...] Sex Assigned at Female 08/28/2018 12:23 AM BENCH ASSEMBLY INSPECTOR Legal Sex Female 4:46 AM BENCH ASSEMBLY INSPECTOR Gender Identity Female 08/28/2018 12:23 AM BENCH ASSEMBLY INSPECTOR Sexual Orientation Straight 10/11/2019 2: 51 PM BENCH ASSEMBLY INSPECTOR documented as of this encounter Plan of Treatment Upcoming Encounters Date Type Department Care Team (Late st Contact Info) Description 04/25/2025 1:30 PM CDT Office Visit [facility] Specialty Clinic [address] [address] Alex Johnson MD [address] [place] [address] documented as of this encounter Visit Diagnoses Not on filedocumented in this encounter Additional Health Concerns Infection Onset Date Last Indicated Resolved Time COVID-19 06/23/2020 06/23/2020 07/14/2020 11:4 0 PM BENCH ASSEMBLY INSPECTOR Recovered COVID 07/08/2020 07/08/2020 09/21/2020 1 1:39 PM BENCH ASSEMBLY INSPECTOR Assessment Noted Time PHQ-9 Depression Total Score: 11 019 2:53 PM CDT documented as of this encounter Care Teams Director Consumer Relationship Specialty Start Date End Date Bonny Cooley MD [address] [place] [address] PCP - General Family Practice 09/30/15 06/02/21 Aminata Youssef MD [facility] [address] [place] [address] PCP - General Internal Medicine 06/03/21 Bettye Gonzales MD MD Internal Medicine 04/10/15 Antony Chakraborty MD [address] [address] MD INTERNAL MEDICINE - ENDOCRINOLOGY, DIABETES & METABOLISM 11/13/15 Mateo Cheema MD [address] [address] Internal Medicine 08/06/16 Ermias Colón MD [address] [address] Referring Physician Neurology 09/23/16 [place] [address] [place] [address] Assigned PCP 10/05/15 07/26/20 Pam Hernandez MD [address] [place] [address] [place] [address] Assigned Behavioral Health Provider 05/30/20 08/01/21 Lázaro Horowitz MD [facility] [address] [place] [address] Assigned Rheumatology Provider 05/30/20 07/19/20 Jaime Grover MD [address] [place] [address] Assigned Gastroenterology Provider 05/30/20 11/14/21 Toni Sheth MD [address] [place] [address] Assigned Pediatric Specialist Provider 05/30/20 09/07/20 Toni Sheth MD [address] [place] [address] Assigned Surgical Provider 05/30/20 04/18/21 Bertram Elizabeth MD [address] [place] [address] Assigned PCP 07/27/20 04/25/21 Bonny Cooley MD [address] [place] [address] Assigned PCP 04/26/21 08/15/21 Bertram Elizabeth MD [address] [place] [address], [place] [address] Assigned PCP 08/16/21 10/24/21 Alex Johnson MD [address] [place] [address] Assigned Rheumatology Provider 10/18/21 04/15/23 Bonny Cooley MD [address] [address] Assigned PCP 10/25/21 04/02/22 Bertram Elizabeth MD [address] [address] Assigned PCP 04/03/22 07/23/22 Bertram Elizabeth MD [address] [address] Assigned PCP 10/02/22 04/29/23 Alex Johnson MD [address] [place] [address] Rheumatology 10/04/24 documented as of this encounter
--- OUTSIDE RECORDS SUMMARY | 2024-10-28 14:52 | XMS_ITS | Encounter Summary ---
Author Organization [facility] Address [address] [place] [address] Care Team Providers Care Solar Sales Associate Name Role Phone Bettye Gonzales MD Unavailable + Bonny Cooley MD Primary Care Provider Antony Chakraborty MD Unavailable [phone] Mateo Cheema MD Unavailable [phone] Ermias Colón MD Unavailable Pam Hernandez MD Unavailable Jaime Grover MD Unavailable Toni Sheth MD Unavailable Bertram Elizabeth MD Unavailable [phone] Bonny Cooley MD Unavailable [phone] Aminata Youssef MD Primary Care Provider [phone] Bertram Elizabeth MD Unavailable Alex Johnson MD Unavailable Bonny Cooley MD Unavailable [phone] Bertram Elizabeth MD Unavailable Bertram Elizabeth MD Unavailable Alex Johnson MD Unavailable Reason for Visit * Reason Comments Medication Refill Encounter Details Date Type Department Care Team (Late st Contact Info) Description 03/04/2021 Refill [facility] [address] [place] [phone] Bonny Cooley MD 2270 [facility] 200 [place], [place] [id number] Medication Refill Social History Tobacco Use Types [...] Sex Assigned at Female 08/28/2018 12:23 AM CUT TOBACCO BULKER Legal Sex Female 4:46 AM CUT TOBACCO BULKER Gender Identity Female 08/28/2018 12:23 AM CUT TOBACCO BULKER Sexual Orientation Straight 10/11/2019 2: 51 PM CUT TOBACCO BULKER documented as of this encounter Miscellaneous Notes * Telephone Encounter - Bonny Cooley MD - 03/09/2021 4:39 PM CDT Per previosu my chart - will establish care at [place]. DM * Telephone Encounter - Katlin Madrid, [facility] - 03/09/2021 10:[address] Cooley-Naomie refill given and patient did not follow up. #30 pended. Team Coordinators-Please contact patient to schedule annual physical. Thank you! MARY KATE Carr, RN [facility] documented in this encounter Plan of Treatment Upcoming Encounters Date Type Department Care Team (Late st Contact Info) Description 04/25/2025 1:30 PM CDT Office Visit [facility] Specialty [facility] [place] 65[address] [facility] 200 [place] [phone] Alex Johnson MD 515 [facility] 88 [place], [place] [address] documented as of this encounter Visit Diagnoses Diagnosis Essential hypertension with goal blood pressure less than 140/90 documented in this encounter Additional Health Concerns Assessment Noted Time PHQ-9 Depression Total Score: 11 020 2:18 PM CDT documented as of this encounter Care Teams Solar Sales Associate Relationship Specialty Start Date End Date Bonny Cooley MD [address] [place] [address] PCP - General Family Practice 09/30/15 06/02/21 Aminata Youssef MD [facility] 2000 [place] [address] PCP - General Internal Medicine 06/03/21 Bettye Gonzales MD Internal Medicine 04/10/15 Antony Chakraborty MD 420 [facility] 101 [place] [address] INTERNAL MEDICINE - ENDOCRINOLOGY, DIABETES & METABOLISM 11/13/15 Mateo Cheema MD 420 [facility] 101 [place] [address] Internal Medicine 08/06/16 Ermias Colón MD 420 [facility] 101 [place] [address] Referring Physician Neurology 09/23/16 Pam Hernandez MD [address] [place] [address] [place] [address] Assigned Behavioral Health Provider 05/30/20 08/01/21 Jaime Grover MD [address] [place] [address] Assigned Gastroenterology Provider 05/30/20 11/14/21 Toni Sheth MD [address] [place] [address] Assigned Surgical Provider 05/30/20 04/18/21 Bertram Elizabeth MD [address] [address] Assigned PCP 07/27/20 04/25/21 Bonny Cooley MD [address] [address] Assigned PCP 04/26/21 08/15/21 Bertram Elizabeth MD [address] [address] Assigned PCP 08/16/21 10/24/21 Alex Johnson MD [address] [place] [address] Assigned Rheumatology Provider 10/18/21 9 [place] [address] [place] [address] Assigned PCP 10/25/21 04/02/22 [place] [address] [place] [address] Assigned PCP 04/03/22 07/23/22 [place] [address] [place] [address] Assigned PCP 10/02/22 04/29/23 Alex Johnson MD [address] [place] [address] Rheumatology 10/04/24 documented as of this encounter
--- OUTSIDE RECORDS SUMMARY | 2024-10-28 14:52 | XMS_ITS | Encounter Summary ---
Author Organization [place] Address [address] [place] [address] Care Team Providers Care Sample Shoe Inspector And Reworker Name Role Phone Bettye Gonzales MD Unavailable + Bonny Cooley MD Primary Care Provider Antony Chakraborty MD Unavailable Mateo Cheema MD Unavailable [phone] Ermias Colón MD Unavailable Bonny Cooley MD Unavailable [phone] Bonny Cooley MD Unavailable [phone] Pam Hernandez MD Unavailable [phone] Lázaro Horowitz MD Unavailable Jaime Grover MD Unavailable Toni Sheth MD Unavailable Toni Sheth MD Unavailable Bertram Elizabeth MD Unavailable Bonny Cooley MD Unavailable [phone] Aminata Youssef MD Primary Care Provider Bertram Elizabeth MD Unavailable [phone] Alex Johnson MD Unavailable [phone] Bonny Cooley MD Unavailable [phone] Bertram Elizabeth MD Unavailable [phone] Bertram Elizabeth MD Unavailable [phone] Alex Johnson MD Unavailable Encounter Details Date Type Department Care Team (Late st Contact Info) Description 08/07/2018 MyC Medical Advice [address] [address] [facility] Social History Tobacco Use Types Packs/Day Years Used Date Smoking Tobacco: Former Cigarettes 2 3 0 04/23/1976 - 12/17/1977 Smokeless Tobacco: Never Alcohol Use Standard Drinks/Week Comments No 0 (1 standard drink = 0.6 oz pur e alcohol) Comments No Sex and Gender Information Value Date Recorded Sex Assigned at Female 08/28/2018 12:23 AM DOUGH SHEETER Legal Sex Female 4:46 AM DOUGH SHEETER Gender Identity Female 08/28/2018 12:23 AM DOUGH SHEETER Sexual Orientation Straight 10/11/2019 2: 51 PM DOUGH SHEETER documented as of this encounter Plan of Treatment Upcoming Encounters Date Type Department Care Team (Late st Contact Info) Description 04/25/2025 1:30 PM CDT Office Visit [facility] [address] [address] Alex Johnson MD [address] [place] [address] documented as of this encounter Visit Diagnoses Not on filedocumented in this encounter Additional Health Concerns Infection Onset Date Last Indicated Resolved Time COVID-19 06/23/2020 06/23/2020 07/14/2020 11:4 0 PM DOUGH SHEETER Recovered COVID 07/08/2020 07/08/2020 09/21/2020 1 1:39 PM DOUGH SHEETER Assessment Noted Time PHQ-9 Depression Total Score: 13 018 7:20 AM DOUGH SHEETER documented as of this encounter Care Teams Sample Shoe Inspector And Reworker Relationship Specialty Start Date End Date Bonny Cooley MD [address] [place] [address] PCP - General Family Practice 09/30/15 06/02/21 Bonny Cooley MD [address] [phone] PCP - Assigned PCP 10/05/15 10/10/18 Aminata Youssef MD [facility] & [address] [address] PCP - General Internal Medicine 06/03/21 Bettye Gonzales MD Internal Medicine 04/10/15 Antony Chakraborty MD [address] [id number] INTERNAL MEDICINE - ENDOCRINOLOGY, DIABETES & METABOLISM 11/13/15 Mateo Cheema MD [address] 213715 Internal Medicine 08/06/16 Ermias Colón MD [address] 288085 Referring Physician Neurology 09/23/16 Bonny Cooley MD [address] [address] Assigned PCP 10/05/15 07/26/20 Pam Hernandez MD [address] [place] [address] [place] [address] Assigned Behavioral Health Provider 05/30/20 08/01/21 Lázaro Horowitz MD [place] [address] [place] [address] Assigned Rheumatology Provider 05/30/20 07/19/20 Jaime Grover MD [address] [place] [address] Assigned Gastroenterology Provider 05/30/20 11/14/21 Toni Sheth MD [address] [place] [address] [phone] Assigned Pediatric Specialist Provider 05/30/20 09/07/20 Toni Sheth MD [address] [place] [address] [phone] Assigned Surgical Provider 05/30/20 04/18/21 Bertram Elizabeth MD [address] [address] Assigned PCP 07/27/20 04/25/21 Bonny Cooley MD [address] [address] Assigned PCP 04/26/21 08/15/21 Bertram Elizabeth MD [address] [address] Assigned PCP 08/16/21 10/24/21 Alex Johnson MD [address] [place] [address] Assigned Rheumatology Provider 10/18/21 04/15/23 Bonny Cooley MD [address] [address] Assigned PCP 10/25/21 04/02/22 Bertram Elizabeth MD [address] [address] Assigned PCP 04/03/22 07/23/22 Bertram Elizabeth MD [address] [address] Assigned PCP 10/02/22 04/29/23 Alex Johnson MD [address] [place] [address] Rheumatology 10/04/24 documented as of this encounter
--- OUTSIDE RECORDS SUMMARY | 2024-10-28 14:52 | XMS_ITS | Encounter Summary ---
Author Organization [place] Address [address] [place] [address] Care Team Providers Care Athlete Manager Name Role Phone Bettye Gonzales MD Unavailable + Bonny Cooley MD Primary Care Provider Antony Chakraborty MD Unavailable Mateo Cheema MD Unavailable Ermias Colón MD Unavailable Bonny Cooley MD Unavailable [phone] Bonny Cooley MD Unavailable [phone] Pam Hernandez MD Unavailable [phone] Lázaro Horowitz MD Unavailable Jaime Grover MD Unavailable Toni Sheth MD Unavailable Toni Sheth MD Unavailable Bertram Elizabeth MD Unavailable Bonny Cooley MD Unavailable [phone] Aminata Youssef MD Primary Care Provider [phone] Bertram Elizabeth MD Unavailable [phone] Alex Johnson MD Unavailable Bonny Cooley MD Unavailable [phone] Bertram Elizabeth MD Unavailable [phone] Bertram Elizabeth MD Unavailable [phone] Alex Johnson MD Unavailable Reason for Visit * Reason Onset Date Comments Lamictal Taper 04/12/2018 Encounter Details Date Type Department Care Team (Late st Contact Info) Description 04/12/2018 MyC Medical Advice [facility] [address] [address] Ermias Colón MD [address] [place] [address] Lamictal Taper Social History Tobacco Use Types Packs/Day Years Used Date Smoking Tobacco: Former Cigarettes 2 3 0 04/23/1976 - 12/17/1977 Smokeless Tobacco: Never Alcohol Use Standard Drinks/Week Comments No 0 (1 standard drink = 0.6 oz pur e alcohol) Comments No Sex and Gender Information Value Date Recorded Sex Assigned at Female 08/28/2018 12:23 AM INSIDE FINISHER Legal Sex Female 4:46 AM INSIDE FINISHER Gender Identity Female 08/28/2018 12:23 AM INSIDE FINISHER Sexual Orientation Straight 10/11/2019 2: 51 PM INSIDE FINISHER documented as of this encounter Miscellaneous Notes [...] [facility] [address] [address] Alex Johnson MD [address] [place] [address] documented as of this encounter Visit Diagnoses Diagnosis Generalized anxiety disorder- Primary documented in this encounter Additional Health Concerns Infection Onset Date Last Indicated Resolved Time COVID-19 06/23/2020 06/23/2020 07/14/2020 11:4 0 PM INSIDE FINISHER Recovered COVID 07/08/2020 07/08/2020 09/21/2020 1 1:39 PM INSIDE FINISHER Assessment Noted Time PHQ-9 Depression Total Score: 12 018 7:15 AM CDT documented as of this encounter Care Teams Athlete Manager Relationship Specialty Start Date End Date Bonny Cooley MD [address] [place] [address] PCP - General Family Practice 09/30/15 06/02/21 Bonny Cooley MD [address] [phone] PCP - Assigned PCP 10/05/15 10/10/18 Aminata Youssef MD [facility] & [address] [address] PCP - General Internal Medicine 06/03/21 Bettye Gonzales MD Internal Medicine 04/10/15 Antony Chakraborty MD [address] 869375 INTERNAL MEDICINE - ENDOCRINOLOGY, DIABETES & METABOLISM 11/13/15 Mateo Cheema MD [address] 166735 Internal Medicine 08/06/16 Ermias Colón MD [address] [address] Referring Physician Neurology 09/23/16 Bonny Cooley MD [address] [address] Assigned PCP 10/05/15 07/26/20 Pam Hernandez MD [address] [place] [address] MALLY LYNNE [address] Assigned Behavioral Health Provider 05/30/20 08/01/21 Lázaro Horowitz MD [place] [address] [place] [address] Assigned Rheumatology Provider 05/30/20 07/19/20 Jaime Grover MD [address] [place] [address] Assigned Gastroenterology Provider 05/30/20 11/14/21 Toni Sheth MD [address] [place] [address] [phone] Assigned Pediatric Specialist Provider 05/30/20 09/07/20 Toni Sheth MD [address] [place] [address] [phone] Assigned Surgical Provider 05/30/20 04/18/21 Bertram Elizabeth MD [address] [address] Assigned PCP 07/27/20 04/25/21 Bonny Cooley MD [address] [address] Assigned PCP 04/26/21 08/15/21 Bertram Elizabeth MD [address] [address] Assigned PCP 08/16/21 10/24/21 Alex Johnson MD [address] [place] [address] Assigned Rheumatology Provider 10/18/21 04/15/23 Bonny Cooley MD [address] [address] Assigned PCP 10/25/21 04/02/22 Bertram Elizabeth MD [address] [address] Assigned PCP 04/03/22 07/23/22 Bertram Elizabeth MD [address] [address] Assigned PCP 10/02/22 04/29/23 Alex Johnson MD [address] [place] [address] Rheumatology 10/04/24 documented as of this encounter
--- OUTSIDE RECORDS SUMMARY | 2024-10-28 14:52 | XMS_ITS | Encounter Summary ---
Author Organization [place] Address [address] [place] [address] Care Team Providers Care Case Management Social Worker Name Role Phone Bettye Gonzales MD Unavailable + Bonny Cooley MD Primary Care Provider Antony Chakraborty MD Unavailable Mateo Cheema MD Unavailable Ermias Colón MD Unavailable Suzanne Fernández RN Unavailable [phone] Bonny Cooley MD Unavailable [phone] Bonny Cooley MD Unavailable [phone] Pam Hernandez MD Unavailable [phone] Lázaro Horowitz MD Unavailable Jaime Grover MD Unavailable Toni Sheth MD Unavailable Toni Sheth MD Unavailable Bertram Elizabeth MD Unavailable Bonny Cooley MD Unavailable [phone] Aminata Youssef MD Primary Care Provider Bertram Elizabeth MD Unavailable [phone] Alex Johnson MD Unavailable [phone] Bonny Cooley MD Unavailable [phone] Bertram Elizabeth MD Unavailable [phone] Bertram Elizabeth MD Unavailable [phone] Alex Johnson MD Unavailable [phone] Reason for Visit * Reason Onset Date Comments Faintness 01/01/2017 Medication Question 01/01/2017 Lasix, and a rthritis/anti-depression med Encounter Details Date Type Department Care Team (Late st Contact Info) Description 01/01/2017 MyC Medical Advice [address] [address] Bonny Cooley MD [address] [address] Faintness; Medication Question (Lasix, and... Social History Tobacco Use Types Packs/Day Years Used Date Smoking Tobacco: Never Smokeless Tobacco: Never Alcohol Use Standard Drinks/Week Comments No 0 (1 standard drink = 0.6 oz pur e alcohol) Comments No Sex and Gender Information Value Date Recorded Sex Assigned at Female 08/28/2018 12:23 AM GARMENT EXAMINER Legal Sex Female 4:46 AM GARMENT EXAMINER Gender Identity Female 08/28/2018 12:23 AM GARMENT EXAMINER Sexual Orientation Straight 10/11/2019 2: 51 PM GARMENT EXAMINER documented as of this encounter Miscellaneous Notes * Telephone Encounter - Nolvia Townsend RN - 01/04/2017 4:49 PM CDT Message to patient with info from Dr. Cooley as below. MARY KATE Lorenzana, RN [facility] * Telephone Encounter - Bonny Cooley MD [...] Office Visit [facility] Specialty [address] [address] Alex Johnson MD [address] [place] [address] documented as of this encounter Visit Diagnoses Diagnosis Generalized edema Edema documented in this encounter Additional Health Concerns Infection Onset Date Last Indicated Resolved Time COVID-19 06/23/2020 06/23/2020 07/14/2020 11:4 0 PM GARMENT EXAMINER Recovered COVID 07/08/2020 07/08/2020 09/21/2020 1 1:39 PM GARMENT EXAMINER Assessment Noted Time PHQ-9 Depression Total Score: 6 09/22/19 17 7:27 AM GARMENT EXAMINER documented as of this encounter Care Teams Case Management Social Worker Relationship Specialty Start Date End Date Bonny Cooley MD [address] [place] [address] PCP - General Family Practice 09/30/15 06/02/21 Bonny Cooley MD [address] [id number] PCP - Assigned PCP 10/05/15 10/10/18 Aminata Youssef MD [facility] & [address] [address] PCP - General Internal Medicine 06/03/21 Bettye Gonzales MD Internal Medicine 04/10/15 Antony Chakraborty MD [address] [phone] INTERNAL MEDICINE - ENDOCRINOLOGY, DIABETES & METABOLISM 11/13/15 Mateo Cheema MD [address] 646105 Internal Medicine 08/06/16 Ermias Colón MD [address] 465195 Referring Physician Neurology 09/23/16 Suzanne Fernández, RN Clinic Dynamite Packing Machine Operator Primary Care - CC 02/28/18 Bonny Cooley MD [address] [address] Assigned PCP 10/05/15 07/26/20 Pam Hernandez MD [address] [place] [address] [place] [address] Assigned Behavioral Health Provider 05/30/20 08/01/21 Lázaro Horowitz MD [facility] [address] [place] [address] Assigned Rheumatology Provider 05/30/20 07/19/20 Jaime Grover MD [address] [place] [address] Assigned Gastroenterology Provider 05/30/20 11/14/21 Toni Sheth MD [address] [place] [address] Assigned Pediatric Specialist Provider 05/30/20 09/07/20 Toni Sheth MD [address] [place] [address] Assigned Surgical Provider 05/30/20 04/18/21 Bertram Elizabeth MD [address] [address] Assigned PCP 07/27/20 04/25/21 Bonny Cooley MD [address] [address] Assigned PCP 04/26/21 08/15/21 Bertram Elizabeth MD [address] [address] Assigned PCP 08/16/21 10/24/21 Alex Johnson MD [address] [place] [address] Assigned Rheumatology Provider 10/18/21 04/15/23 Bonny Cooley MD [address] [address] Assigned PCP 10/25/21 04/02/22 Bertram Elizabeth MD [address] [address] Assigned PCP 04/03/22 07/23/22 Bertram Elizabeth MD [address] [address] Assigned PCP 10/02/22 04/29/23 Alex Johnson MD [address] [place] [address] Rheumatology 10/04/24 documented as of this encounter
--- OUTSIDE RECORDS SUMMARY | 2024-10-28 14:52 | XMS_ITS | Encounter Summary ---
Author Organization [place] Address [address] [place] [address] Care Team Providers Care Truck Mechanic Apprentice Name Role Phone Bettye Gonzales MD Unavailable + Bonny Cooley MD Primary Care Provider Antony Chakraborty MD Unavailable [phone] Mateo Cheema MD Unavailable [phone] Ermias Colón MD Unavailable Pam Hernandez MD Unavailable Jaime Grover MD Unavailable Bonny Cooley MD Unavailable [phone] Aminata Youssef MD Primary Care Provider Bertram Elizabeth MD Unavailable Alex Johnson MD Unavailable Bonny Cooley MD Unavailable [phone] Bertram Elizabeth MD Unavailable Bertram Elizabeth MD Unavailable Alex Johnson MD Unavailable Reason for Visit * Reason Comments Medication Refill Encounter Details Date Type Department Care Team (Late st Contact Info) Description 05/11/2021 Refill [facility] [address] [facility] [place] [phone] Bonny Cooley MD [address] [facility] [address] [place] [address] Medication Refill Social History Tobacco Use Types [...] Assigned at Female 08/28/2018 12:23 AM DIRECTOR RECREATION Legal Sex Female 4:46 AM DIRECTOR RECREATION Gender Identity Female 08/28/2018 12:23 AM DIRECTOR RECREATION Sexual Orientation Straight 10/11/2019 2: 51 PM DIRECTOR RECREATION documented as of this encounter Miscellaneous Notes * Telephone Encounter - Alicia Ross RN - 05/14/2021 12:58 PM CDT Refusing: patient established care with new provider in [place] MARY KATE Liu RN [facility] documented in this encounter Plan of Treatment Upcoming Encounters Date Type Department Care Team (Late st Contact Info) Description 04/25/2025 1:30 PM CDT Office Visit [facility] [address] [place] [phone] Alex Johnson MD [address] [place] [address] [phone] documented as of this encounter Visit Diagnoses Diagnosis Major depressive disorder, recurrent episode, moderate (H) Major depressive disorder, recurrent episode, moderate documented in this encounter Additional Health Concerns Assessment Noted Time PHQ-9 Depression Total Score: 11 020 2:18 PM CDT documented as of this encounter Care Teams Truck Mechanic Apprentice Relationship Specialty Start Date End Date Bonny Cooley MD [address] [place] [address] PCP - General Family Practice 09/30/15 06/02/[address] [facility] & [address] [address] PCP - General Internal Medicine 06/03/21 Bettye Gonzales MD MD Internal Medicine 04/10/15 Antony Chakraborty MD [address] 252335 MD INTERNAL MEDICINE - ENDOCRINOLOGY, DIABETES & METABOLISM 11/13/15 Mateo Cheema MD [address] 395495 Internal Medicine 08/06/16 Ermias Colón MD [address] 344075 Referring Physician Neurology 09/23/16 Pam Hernandez MD [address] [place] [address] [address] [place] 895981 Assigned Behavioral Health Provider 05/30/20 08/01/21 Jaime Grover MD [address] [place] [address] Assigned Gastroenterology Provider 05/30/20 11/14/21 Bonny Cooley MD [address] [address] Assigned PCP 04/26/21 08/15/21 Bertram Elizabeth MD [address] [address] Assigned PCP 08/16/21 10/24/21 Alex Johnson MD [address] [place] [address] Assigned Rheumatology Provider 10/18/21 04/15/23 Bonny Cooley MD [address] [address] Assigned PCP 10/25/21 04/02/22 Bertram Elizabeth MD [address] [address] Assigned PCP 04/03/22 07/23/22 Bertram Elizabeth MD [address] [address] Assigned PCP 10/02/22 04/29/23 Alex Johnson MD [address] [place] [address] Rheumatology 10/04/24 documented as of this encounter
--- OUTSIDE RECORDS SUMMARY | 2024-10-28 14:52 | XMS_ITS | Encounter Summary ---
Author Organization [place] Address [address] [place] [address] Care Team Providers Care Hearing Instrument Specialist Name Role Phone Bettye Gonzales MD Unavailable + Bonny Cooley MD Primary Care Provider [phone] Antony Chakraborty MD Unavailable [phone] Mateo Cheema MD Unavailable Ermias Colón MD Unavailable Suzanne Fernández RN Unavailable [phone] Bonny Cooley MD Unavailable [phone] Bonny Cooley MD Unavailable [phone] Pam Hernandez MD Unavailable [phone] Lázaro Horowitz MD Unavailable Jaime Grover MD Unavailable Toni Sheth MD Unavailable Toni Sheth MD Unavailable Bertram Elizabeth MD Unavailable Bonny Cooley MD Unavailable [phone] Aminata Youssef MD Primary Care Provider Bertram Elizabeth MD Unavailable Alex Johnson MD Unavailable Bonny Cooley MD Unavailable [phone] Bertram Elizabeth MD Unavailable [phone] Bertram Elizabeth MD Unavailable [phone] Alex Johnson MD Unavailable [phone] Reason for Visit * Reason Onset Date Comments Hand Pain 01/03/2017 Edema 01/03/2017 Encounter Details Date Type Department Care Team (Late st Contact Info) Description 01/03/2017 MyC Medical Advice [address] [address] [place] [address] [address] Hand Pain; Edema Social History Tobacco Use Types Packs/Day Years Used Date Smoking Tobacco: Never Smokeless Tobacco: Never Alcohol Use Standard Drinks/Week Comments No 0 (1 standard drink = 0.6 oz pur e alcohol) Comments No Sex and Gender Information Value Date Recorded Sex Assigned at Female 08/28/2018 12:23 AM SANITATION TANK WASHER Legal Sex Female 4:46 AM SANITATION TANK WASHER Gender Identity Female 08/28/2018 12:23 AM SANITATION TANK WASHER Sexual Orientation Straight 10/11/2019 2: 51 PM SANITATION TANK WASHER documented as of this encounter Miscellaneous Notes * Telephone Encounter - Nolvia Townsend RN - 01/04/2017 5:04 PM CDT Message to patient regarding X-ray and follow up. MARY KATE Lorenzana, RN [facility] [place] [facility]3] * Telephone Encounter - Bonny Cooley MD [...] another office visit be recommended for evaluation? Senior Reactor Operator also pended rheumatology referral. Thank you! MARY KATE Johnson, RN documented in this encounter Plan of Treatment Upcoming Encounters Date Type Department Care Team (Late st Contact Info) Description 04/25/2025 1:30 PM CDT Office Visit [facility] [address] [address] Alex Johnson MD [address] [place] [address] documented as of this encounter Results * [...] COVID-19 06/23/2020 06/23/2020 07/14/2020 11:4 0 PM SANITATION TANK WASHER Recovered COVID 07/08/2020 07/08/2020 09/21/2020 1 1:39 PM SANITATION TANK WASHER Assessment Noted Time PHQ-9 Depression Total Score: 6 09/22/19 17 7:27 AM SANITATION TANK WASHER documented as of this encounter Care Teams Hearing Instrument Specialist Relationship Specialty Start Date End Date Bonny Cooley MD [address] [place] [address] PCP - General Family Practice 09/30/15 06/02/21 Bonny Cooley MD [address] [address] PCP - Assigned PCP 10/05/15 10/10/18 Aminata Youssef MD [facility] & [address] [address] PCP - General Internal Medicine 06/03/21 Bettye Gonzales MD MD Internal Medicine 04/10/15 Antony Chakraborty MD [address] 925915 INTERNAL MEDICINE - ENDOCRINOLOGY, DIABETES & METABOLISM 11/13/15 Mateo Cheema MD [address] 767165 Internal Medicine 08/06/16 Ermias Colón MD [address] 446975 Referring Physician Neurology 09/23/16 Suzanne Fernández, RN Clinic Penology Professor Primary Care - CC 02/28/18 Bonny Cooley MD [address] [address] Assigned PCP 10/05/15 07/26/20 Pam Hernandez MD [address] [place] [address] [place] [address] Assigned Behavioral Health Provider 05/30/20 08/01/21 Lázaro Horowitz MD [address] [address] Assigned Rheumatology Provider 05/30/20 07/19/20 Jaime Grover MD [address] [place] [address] Assigned Gastroenterology Provider 05/30/20 11/14/21 Toni Sheth MD [address] [place] [address] [phone] Assigned Pediatric Specialist Provider 05/30/20 09/07/20 Toni Sheth MD [address] [place] [address] Assigned Surgical Provider 05/30/20 04/18/21 Bertram Elizabeth MD [address] [place] [address] Assigned PCP 07/27/20 04/25/21 Bonny Cooley MD [address] [place] [address] Assigned PCP 04/26/21 08/15/21 Bertram Elizabeth MD 0 [facility] [address] [place] [address] Assigned PCP 08/16/21 10/24/21 Alex Johnson MD [address] [place] [address] Assigned Rheumatology Provider 10/18/21 04/15/23 Bonny Cooley MD [address] [place] [address] Assigned PCP 10/25/21 04/02/22 Bertram Elizabeth MD [address] [place] [address] Assigned PCP 04/03/22 07/23/22 Bertram Elizabeth MD [address] [place] [address] Assigned PCP 10/02/22 04/29/23 Alex Johnson MD [address] [place] [address] Rheumatology 10/04/24 documented as of this encounter
--- OUTSIDE RECORDS SUMMARY | 2024-10-28 14:52 | XMS_ITS | Encounter Summary ---
Author Organization [place] Address [address] [place] [address] Care Team Providers Care Automotive Design Layout Drafter Name Role Phone Bettye Gonzales MD Unavailable + Bonny Cooley MD Primary Care Provider Antony Chakraborty MD Unavailable Mateo Cheema MD Unavailable Ermias Colón MD Unavailable Suzanne Fernández RN Unavailable [phone] Bonny Cooley MD Unavailable [phone] Bonny Cooley MD Unavailable [phone] Pam Hernandez MD Unavailable [phone] Lázaro Horowitz MD Unavailable Jaime Grover MD Unavailable Toni Sheth MD Unavailable Toni Sheth MD Unavailable Bertram Elizabeth MD Unavailable Bonny Cooley MD Unavailable +[phone] Aminata Youssef MD Primary Care Provider [phone] Bertram Elizabeth MD Unavailable [phone] Alex Johnson MD Unavailable [phone] Bonny Cooley MD Unavailable [phone] Bertram Elizabeth MD Unavailable [phone] Bertram Elizabeth MD Unavailable +[phone] Alex Johnson MD Unavailable [phone] Reason for Visit * Reason Onset Date Comments Refill Request 07/14/2017 methotrexate Encounter Details Date Type Department Care Team (Latest Contact Info) Description 07/14/2017 [facility]ice [address] [address] Lázaro Horowitz MD [address] [address] Refill Request (methotrexate) Social History Tobacco Use Types Packs/Day Years Used Date Smoking Tobacco: Former Cigarettes 2 3 0 04/23/1976 - 12/17/1977 Smokeless Tobacco: Never Alcohol Use Standard Drinks/Week Comments No 0 (1 standard drink = 0.6 oz pur e alcohol) Comments No Sex and Gender Information Value Date Recorded Sex Assigned at Female 08/28/2018 12:23 AM CHIEF JUVENILE PROBATION OFFICER Legal Sex Female 4:46 AM CHIEF JUVENILE PROBATION OFFICER Gender Identity Female 08/28/2018 12:23 AM CHIEF JUVENILE PROBATION OFFICER Sexual Orientation Straight 10/11/2019 2: 51 PM CHIEF JUVENILE PROBATION OFFICER documented as of this encounter Miscellaneous Notes * Telephone Encounter - Esme Cabello RN - 07/14/2017 9:45 AM CHIEF JUVENILE PROBATION OFFICER Pt sent [facility] message that she is [...] 90 days) Aug 09, 2017 9:15 AM CHIEF JUVENILE PROBATION OFFICER Return Visit with Lázaro Horowitz [facility] [address] [address] Routing refill request to provider for review/approval because: Drug not on the [facility], [facility] or [facility] refill protocol or controlled substance Vee, program lead Nurse F JUVENILE PROBATION OFFICER * Telephone Encounter - Ignacia Robertson RN - 07/14/2017 9:35 AM CHIEF JUVENILE PROBATION OFFICER Refill request for METHOTREXATE 20 QWK (THURSDAYS) [...] 0.72 04/12/2017 No results found for: URIC F JUVENILE PROBATION OFFICER documented in this encounter Plan of Treatment Upcoming Encounters Date Type Department Care Team (Late st Contact Info) Description 04/25/2025 1:30 PM CDT Office Visit [facility] Specialty [address] [address] Alex Johnson MD [address] [place] [address] documented as of this encounter Visit Diagnoses Diagnosis Rheumatoid arthritis of multiple sites without rheumatoid factor (H) Rheumatoid arthritis documented in this encounter Additional Health Concerns Infection Onset Date Last Indicated Resolved Time COVID-19 06/23/2020 06/23/2020 07/14/2020 11:4 0 PM CHIEF JUVENILE PROBATION OFFICER Recovered COVID 07/08/2020 07/08/2020 09/21/2020 1 1:39 PM CHIEF JUVENILE PROBATION OFFICER Assessment Noted Time PHQ-9 Depression Total Score: 17 017 1:13 PM CDT documented as of this encounter Care Teams Automotive Design Layout Drafter Relationship Specialty Start Date End Date Bonny Cooley MD [address] [place] [address] PCP - General Family Practice 09/30/15 06/02/21 Bonny Cooley MD [address] [address] PCP - Assigned PCP 10/05/15 10/10/18 Aminata Youssef MD [facility] [address] [place] [address] PCP - General Internal Medicine 06/03/21 Bettye Gonzales MD Internal Medicine 04/10/15 Antony Chakraborty MD [address] [place] [address] INTERNAL MEDICINE - ENDOCRINOLOGY, DIABETES & METABOLISM 11/13/15 Mateo Cheema MD [address] [address] Internal Medicine 08/06/16 Ermias Colón MD [address] [place] [address] Referring Physician Neurology 09/23/16 Suzanne Fernández, RN Clinic Smoking Pipe Coater Primary Care - CC 02/28/18 Bonny Cooley MD [address] [address] Assigned PCP 10/05/15 07/26/20 Pam Hernandez MD [address] [place] [address] [place] [address] Assigned Behavioral Health Provider 05/30/20 08/01/21 Lázaro Horowitz MD [facility] [address] [place], [place] [address] Assigned Rheumatology Provider 05/30/20 07/19/20 Jaime Grover MD [address] [place] [address] Assigned Gastroenterology Provider 05/30/20 11/14/21 Toni Sheth MD [address] [place] [address] Assigned Pediatric Specialist Provider 05/30/20 09/07/20 Toni Sheth MD [address] [place] [address] [id number] Assigned Surgical Provider 05/30/20 04/18/21 Bertram Elizabeth MD 0 [facility] [address] [place] [address] Assigned PCP 07/27/20 04/25/21 Bonny Cooley MD [address] [place] [address] Assigned PCP 04/26/21 08/15/21 Bertram Elizabeth MD [address] [address] Assigned PCP 08/16/21 10/24/21 Alex Johnson MD [address] [place] [address] Assigned Rheumatology Provider 10/18/21 04/15/23 Bonny Cooley MD [address] [address] Assigned PCP 10/25/21 04/02/22 Bertram Elizabeth MD [address] [address] Assigned PCP 04/03/22 07/23/22 Bertram Elizabeth MD [address] [place] [address] Assigned PCP 10/02/22 04/29/23 Alex Johnson MD [address] [place] [address] Rheumatology 10/04/24 documented as of this encounter
--- OUTSIDE RECORDS SUMMARY | 2024-10-28 14:52 | XMS_ITS | Encounter Summary ---
Author Organization [place] Address [address] [place] [address] Care Team Providers Care Internet Marketing Assistant Name Role Phone Bettye Gonzales MD Unavailable + Bonny Cooley MD Primary Care Provider Antony Chakraborty MD Unavailable Mateo Cheema MD Unavailable Ermias Colón MD Unavailable Suzanne Fernández RN Unavailable [phone] Bonny Cooley MD Unavailable [phone] Bonny Cooley MD Unavailable [phone] Pam Hernandez MD Unavailable [phone] Lázaro Horowitz MD Unavailable Jaime Grover MD Unavailable Toni Sheth MD Unavailable Toni Sheth MD Unavailable Bertram Elizabeth MD Unavailable Bonny Cooley MD Unavailable [phone] Aminata Youssef MD Primary Care Provider [phone] Bertram Elizabeth MD Unavailable +[phone] Alex Johnson MD Unavailable [phone] Bonny Cooley MD Unavailable Bertram Elizabeth MD Unavailable +[phone] Bertram Elizabeth MD Unavailable +[phone] Alex Johnson MD Unavailable [phone] Reason for Visit * Reason Onset Date Comments cpap causing isusse 07/27/2017 Encounter Details Date Type Department Care Team (Late st Contact Info) Description 07/27/[address] [address] Nestor Vergara MD [address] [place] [address] cpap causing isusse Social History Tobacco Use Types Packs/Day Years Used Date Smoking Tobacco: Former Cigarettes 2 3 0 04/23/1976 - 12/17/1977 Smokeless Tobacco: Never Alcohol Use Standard Drinks/Week Comments No 0 (1 standard drink = 0.6 oz pur e alcohol) Comments No Sex and Gender Information Value Date Recorded Sex Assigned at Female 08/28/2018 12:23 AM FRAUD REPRESENTATIVE Legal Sex Female 4:46 AM FRAUD REPRESENTATIVE Gender Identity Female 08/28/2018 12:23 AM FRAUD REPRESENTATIVE Sexual Orientation Straight 10/11/2019 2: 51 PM FRAUD REPRESENTATIVE documented as of this encounter Miscellaneous Notes [...] sick. I transfer the patient to the [facility] as well. D REPRESENTATIVE documented in this encounter Plan of Treatment Upcoming Encounters Date Type Department Care Team (Late st Contact Info) Description 04/25/2025 1:30 PM CDT Office Visit [facility] [address] [phone] Alex Johnson MD [address] [place] [address] documented as of this encounter Visit Diagnoses Not on filedocumented in this encounter Additional Health Concerns Infection Onset Date Last Indicated Resolved Time COVID-19 06/23/2020 06/23/2020 07/14/2020 11:4 0 PM FRAUD REPRESENTATIVE Recovered COVID 07/08/2020 07/08/2020 09/21/2020 1 1:39 PM FRAUD REPRESENTATIVE Assessment Noted Time PHQ-9 Depression Total Score: 17 017 1:13 PM CDT documented as of this encounter Care Teams Internet Marketing Assistant Relationship Specialty Start Date End Date Bonny Cooley MD [address] [place] [address] PCP - General Family Practice 09/30/15 06/02/21 Bonny Cooley MD [address] [address] PCP - Assigned PCP 10/05/15 10/10/[address] [facility] [address] [place] [address] PCP - General Internal Medicine 06/03/21 Bettye Gonzales MD Internal Medicine 04/10/15 Antony Chakraborty MD [address] [address] INTERNAL MEDICINE - ENDOCRINOLOGY, DIABETES & METABOLISM 11/13/15 Mateo Cheema MD [address] [address] Internal Medicine 08/06/16 Ermias Colón MD [address] [phone] Referring Physician Neurology 09/23/16 Suzanne Fernández RN Clinic Certified Pathology Assistant Primary Care - CC 02/28/18 Bonny Cooley MD [address] [id number] Assigned PCP 10/05/15 07/26/20 Pam Hernandez MD [address] [place] [address] [place] [address] Assigned Behavioral Health Provider 05/30/20 08/01/21 Lázaro Horowitz MD [facility] [address] [place], [place] [address] Assigned Rheumatology Provider 05/30/20 07/19/20 Jaime Grover MD [address] [place] [address] Assigned Gastroenterology Provider 05/30/20 11/14/21 Toni Sheth MD [address] [place] [address] Assigned Pediatric Specialist Provider 05/30/20 09/07/20 Toni Sheth MD [address] [place] [address] Assigned Surgical Provider 05/30/20 04/18/21 Bertram Elizabeth MD [address] [address] Assigned PCP 07/27/20 04/25/21 Bonny Cooley MD [address] [address] Assigned PCP 04/26/21 08/15/21 Bertram Elizabeth MD [address] [address] Assigned PCP 08/16/21 10/24/21 Alex Johnson MD [address] [place] [address] Assigned Rheumatology Provider 10/18/21 04/15/23 Bonny Cooley MD [address] [address] Assigned PCP 10/25/21 04/02/22 Bertram Elizabeth MD [address] [address] Assigned PCP 04/03/22 07/23/22 Bertram Elizabeth MD [address] [address] Assigned PCP 10/02/22 04/29/23 Alex Johnson MD [address] [place] [id number] Rheumatology 10/04/24 documented as of this encounter
--- OUTSIDE RECORDS SUMMARY | 2024-10-28 14:52 | XMS_ITS | Encounter Summary ---
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 Encounter Details Date Type Department Care Team (Late st Contact Info) Description 10/09/2024 2:30 PM YOGA INSTRUCTOR Virtual Visit [address] [address] Alex Johnson MD [address] [place] [address] [phone] 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 Seronegative inflammatory arthritis: Joint swelling [...] up to 3 times daily as needed. INSTRUCTOR documented in this encounter Progress Notes * [...] in 6 months Alex Johnson MD Staff Cupola Charger Insulation, [facility] On the day of the encounter, a [...] mg by mouth 2 times daily Evening Jerome Oil CAPS Take 1,300 mg by mouth 2 times daily. fish oil-omega-3 fatty acids (OMEGA 3) 1000 MG capsule Take by mouth See Admin Instructions. DHA 900mg/EPA 180mg daily folic acid (FOLVITE) 1 MG tablet TAKE 4 TABLETS(4 MG) BY MOUTH DAILY. FOLLOW-UP WITH DOCTOR WERO. 120 tablet 2 GINKGO BILOBA EXTRACT PO Take 1 tablet by mouth daily Fnnjyojjaqj-Wikxilqjl-Rzh C-Mn (GLUCOSAMINE-CHONDROITIN) TABS Take 1,500 mg by mouth 2 times daily.200 Chrondrointin. MAGNESIUM OXIDE PO Take 500 mgy by mouth 2 times daily methotrexate 2.5 MG tablet TAKE 7 TABLETS BY MOUTH EVERY WEEK 28 tablet 5 Multiple Vitamins-Minerals (ZINC PO) Take 1 tablet by mouth 2 times daily NONFORMULARY Takes MElaleuca vitality total multi vit twice daily (130 mg) nystatin (MYCOSTATIN) 827582 UNIT/GM external powder Apply topically 2 times [...] refills, please schedule a follow-up appointment at [phone] (Patient not taking: Reported on 10/09/2024) 12 [...] TKR) is prominent. In the mornings, no environmental protection forester stiffness. Small joints of hands and feet [...] better control of joint pain. Now, no environmental protection forester stiffness. Her hands have a tendency to [...] Migraines visually evoked Multiple sclerosis (H) 1984 [facility] (took steroids and got worse so no [...] 1982 CHOLECYSTECTOMY 2002 CHOLECYSTECTOMY 2004 COLONOSCOPY 08/20/11 [facility] COLONOSCOPY N/A 07/08/2020 Procedure: COLONOSCOPY; Surgeon: Jaime [...] Final Telephone visit Start 12:53 End 1:14 INSTRUCTOR documented in this encounter Plan of Treatment Upcoming Encounters Date Type Department Care Team (Late st Contact Info) Description 04/25/2025 1:30 PM CDT Office Visit [facility] [address] [phone] Alex Johnson MD [address] [place] [address] [phone] Scheduled Orders Name Type Priority Associated Diagnoses Orde r Schedule CBC with platelets Lab Routine 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 Every 3 Months for 4 Occurrences starting 10/09/2024 until 10/09/2025 AST Lab Routine detention methotrexate user Every 3 Months for 4 Occurrences starting 10/09/2024 until 10/09/2025 ALT Lab Routine 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 Every 3 Months for 4 Occurrences starting 10/09/2024 until 10/09/2025 Albumin level Lab Routine 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 Every 3 Months for 4 Occurrences starting 10/09/2024 until 10/09/2025 Creatinine Lab Routine detention methotrexate user Every 3 Months for 4 Occurrences starting 10/09/2024 until 10/09/2025 CRP inflammation Lab Routine 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 Expected: 10/09/2024 (Approximate), Expires: 04/10/2025 Erythrocyte sedimentation rate auto Lab Routine 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 Expected: 10/09/2024 (Approximate), Expires: 04/10/2025 documented as of this encounter Visit Diagnoses Diagnosis 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- Primary Encounter for long-term (current) use of other medications Rheumatoid arthritis of multiple sites without rheumatoid factor (H) Rheumatoid arthritis documented in this encounter Additional Health Concerns Assessment Noted Time PHQ-9 Depression Total Score: 11 020 2:18 PM CDT documented as of this encounter Care Teams Therapeutic Riding Instructor Relationship Specialty Start Date End Date Aminata Youssef MD [facility] [address] [place] [address] PCP - General Internal Medicine 06/03/21 Bettye Gonzales MD Internal Medicine 04/10/15 Antony Chakraborty MD [address] [address] INTERNAL MEDICINE - ENDOCRINOLOGY, DIABETES & METABOLISM 11/13/15 Mateo Cheema MD [address] [address] Internal Medicine 08/06/16 Ermias Colón MD [address] [address] Referring Physician Neurology 09/23/16 Alex Johnson MD [address] [place] [address] [id number] Rheumatology 10/04/24 documented as of this encounter
--- OUTSIDE RECORDS SUMMARY | 2024-10-28 14:52 | XMS_ITS | Encounter Summary ---
Author Organization [place] Address [address] [place] [address] Care Team Providers Care Computer Numerical Control Operator Name Role Phone Bettye Gonzales MD Unavailable + Bonny Cooley MD Primary Care Provider Antony Chakraborty MD Unavailable [phone] Mateo Cheema MD Unavailable [phone] Ermias Colón MD Unavailable Bonny Cooley MD Unavailable [phone] Bonny Cooley MD Unavailable [phone] Pam Hernandez MD Unavailable [phone] Lázaro Horowitz MD Unavailable Jaime Grover MD Unavailable Toni Sheth MD Unavailable Toni Sheth MD Unavailable Bertram Elizabeth MD Unavailable [phone] Bonny Cooley MD Unavailable [phone] Aminata Youssef MD Primary Care Provider Bertram Elizabeth MD Unavailable [phone] Alex Johnson MD Unavailable [phone] Bonny Cooley MD Unavailable [phone] Bertram Elizabeth MD Unavailable [phone] Bertram Elizabeth MD Unavailable [phone] Alex Johnson MD Unavailable Encounter Details Date Type Department Care Team (Late st Contact Info) Description 06/30/2018 [facility] Medical Advice [address] [address] Noe Camarena RN Social History Tobacco Use Types Packs/Day Years Used Date Smoking Tobacco: Former Cigarettes 2 3 0 04/23/1976 - 12/17/1977 Smokeless Tobacco: Never Alcohol Use Standard Drinks/Week Comments No 0 (1 standard drink = 0.6 oz pur e alcohol) Comments No Sex and Gender Information Value Date Recorded Sex Assigned at Female 08/28/2018 12:23 AM CONSULTING DATABASE ADMINISTRATOR Legal Sex Female 4:46 AM CONSULTING DATABASE ADMINISTRATOR Gender Identity Female 08/28/2018 12:23 AM CONSULTING DATABASE ADMINISTRATOR Sexual Orientation Straight 10/11/2019 2: 51 PM CONSULTING DATABASE ADMINISTRATOR documented as of this encounter Plan of Treatment Upcoming Encounters Date Type Department Care Team (Late st Contact Info) Description 04/25/2025 1:30 PM CDT Office Visit [facility] [address] [phone] Alex Johnson MD [address] [place] [address] documented as of this encounter Visit Diagnoses Not on filedocumented in this encounter Additional Health Concerns Infection Onset Date Last Indicated Resolved Time COVID-19 06/23/2020 06/23/2020 07/14/2020 11:4 0 PM CONSULTING DATABASE ADMINISTRATOR Recovered COVID 07/08/2020 07/08/2020 09/21/2020 1 1:39 PM CONSULTING DATABASE ADMINISTRATOR Assessment Noted Time PHQ-9 Depression Total Score: 13 018 7:20 AM CONSULTING DATABASE ADMINISTRATOR documented as of this encounter Care Teams Computer Numerical Control Operator Relationship Specialty Start Date End Date Bonny Cooley MD [address] [place] [address] PCP - General Family Practice 09/30/15 06/02/21 Bonny Cooley MD [address] [address] PCP - Assigned PCP 10/05/15 10/10/18 Aminata Youssef MD [facility] [address] [place] [address] PCP - General Internal Medicine 06/03/21 Bettye Gonzales MD MD Internal Medicine 04/10/15 Antony Chakraborty MD [address] [facility] [address] [phone] INTERNAL MEDICINE - ENDOCRINOLOGY, DIABETES & METABOLISM 11/13/15 Mateo Cheema MD [address] [place] [address] [address] Internal Medicine 08/06/16 Ermias Colón MD [facility] [address] [address] Referring Physician Neurology 09/23/16 Bonny Cooley MD [address] [address] Assigned PCP 10/05/15 07/26/20 Pam Hernandez MD [address] [place] [address] [place] [address] Assigned Behavioral Health Provider 05/30/20 08/01/21 Lázaro Horowitz MD [place] [address] [place] [address] Assigned Rheumatology Provider 05/30/20 07/19/20 Jaime Grover MD [address] [place] [address] Assigned Gastroenterology Provider 05/30/20 11/14/21 Toni Sheth MD [address] [place] [address] [id number] Assigned Pediatric Specialist Provider 05/30/20 09/07/20 Toni Sheth MD [address] [place] [address] Assigned Surgical Provider 05/30/20 04/18/21 Bertram Elizabeth MD [address] [address] Assigned PCP 07/27/20 04/25/21 Bonny Cooley MD [address] [address] Assigned PCP 04/26/21 08/15/21 Bertram Elizabeth MD [address] [address] Assigned PCP 08/16/21 10/24/21 Alex Johnson MD [address] [place] [address] Assigned Rheumatology Provider 10/18/21 04/15/23 Bonny Cooley MD [address] [address] Assigned PCP 10/25/21 04/02/22 Bertram Elizabeth MD [address] [address] Assigned PCP 04/03/22 07/23/22 Bertram Elizabeth MD [address] [address] Assigned PCP 10/02/22 04/29/23 Alex Johnson MD [address] [place] [address] Rheumatology 10/04/24 documented as of this encounter
--- OUTSIDE RECORDS SUMMARY | 2024-10-28 14:52 | XMS_ITS | Encounter Summary ---
Author Organization [place] Address [address] [place] [address] Care Team Providers Care Livestock Broker Name Role Phone Bettye Gonzales MD Unavailable + Bonny Cooley MD Primary Care Provider [phone] Antony Chakraborty MD Unavailable Mateo Cheema MD Unavailable [phone] Ermias Colón MD Unavailable Suzanne Fernández RN Unavailable [phone] Bonny Cooley MD Unavailable [phone] Bonny Cooley MD Unavailable [phone] Pam Hernandez MD Unavailable [phone] Lázaro Horowitz MD Unavailable Jaime Grover MD Unavailable [phone] Toni Sheth MD Unavailable Toni hSeth MD Unavailable Bertram Elizabeth MD Unavailable Bonny Cooley MD Unavailable Aminata Youssef MD Primary Care Provider [phone] Bertram Elizabeth MD Unavailable +[phone] Alex Johnson MD Unavailable Bonny Cooley MD Unavailable +[phone] Bertram Elizabeth MD Unavailable +[phone] Bertram Elizabeth MD Unavailable +1-6 Alex Johnson MD Unavailable [phone] Encounter Details Date Type Department Care Team (Late st Contact Info) Description 02/15/2018 MyC Medical Advice [facility] [address] [address] Ermias Colón MD [address] [place], [place] [address] Social History Tobacco Use Types Packs/Day Years Used Date Smoking Tobacco: Former Cigarettes 2 3 0 04/23/1976 - 12/17/1977 Smokeless Tobacco: Never Alcohol Use Standard Drinks/Week Comments No 0 (1 standard drink = 0.6 oz pur e alcohol) Comments No Sex and Gender Information Value Date Recorded Sex Assigned at Female 08/28/2018 12:23 AM WAITER/WAITRESS ROOM SERVICE Legal Sex Female 4:46 AM WAITER/WAITRESS ROOM SERVICE Gender Identity Female 08/28/2018 12:23 AM WAITER/WAITRESS ROOM SERVICE Sexual Orientation Straight 10/11/2019 2: 51 PM WAITER/WAITRESS ROOM SERVICE documented as of this encounter Miscellaneous Notes * Telephone Encounter - Nolvia Townsend RN - 02/15/2018 2:13 PM CDT Pt notified that this was refilled. MARY KATE Lorenzana, RN [facility] documented in this encounter Plan of Treatment Upcoming Encounters Date Type Department Care Team (Late st Contact Info) Description 04/25/2025 1:30 PM CDT Office Visit [facility] [place] [address] 200 [place] [phone] Alex Johnson MD 515 [facility] 88 [place] [address] documented as of this encounter Visit Diagnoses Not on filedocumented in this encounter Additional Health Concerns Infection Onset Date Last Indicated Resolved Time COVID-19 06/23/2020 06/23/2020 07/14/2020 11:4 0 PM WAITER/WAITRESS ROOM SERVICE Recovered COVID 07/08/2020 07/08/2020 09/21/2020 1 1:39 PM WAITER/WAITRESS ROOM SERVICE Assessment Noted Time PHQ-9 Depression Total Score: 12 018 7:15 AM CDT documented as of this encounter Care Teams Livestock Broker Relationship Specialty Start Date End Date Bonny Cooley MD [address] [place] [address] PCP - General Family Practice 09/30/15 06/02/21 Bonny Cooley MD 2270 [facility] 200 [place] [address] PCP - Assigned PCP 10/05/15 10/10/18 Aminata Youssef MD [facility] 1999 [place] [address] PCP - General Internal Medicine 06/03/21 Bettye Gonzales MD Internal Medicine 04/10/15 Antony Chakraborty MD 420 [facility] 101 [place] [address] INTERNAL MEDICINE - ENDOCRINOLOGY, DIABETES & METABOLISM 11/13/15 Mateo Cheema MD [address] [address] Internal Medicine 08/06/16 Ermias Colón MD [address] [address] Referring Physician Neurology 09/23/16 Suzanne Fernández, [facility] Track Layer Primary Care - CC 02/28/18 Bonny Cooley MD [address] [address] Assigned PCP 10/05/15 07/26/20 Pam Hernandez MD 1 [facility] [place] [address] Assigned Behavioral Health Provider 05/30/20 08/01/21 Lázaro Horowitz MD [facility] [address] [place], [place] [address] Assigned Rheumatology Provider 05/30/20 07/19/20 Jaime Grover MD 909 [place] [address] Assigned Gastroenterology Provider 05/30/20 11/14/21 Toni Sheth MD 1701 [place] [address] Assigned Pediatric Specialist Provider 05/30/20 09/07/20 Toni Sheth MD [address] [place] [address] Assigned Surgical Provider 05/30/20 04/18/21 Bertram Elizabeth MD [address] [address] Assigned PCP 07/27/20 04/25/21 Bonny Cooley MD [address] [address] Assigned PCP 04/26/21 08/15/21 Bertram Elizabeth MD [address] [place] [address] Assigned PCP 08/16/21 10/24/21 Alex Johnson MD [address] [place] [address] Assigned Rheumatology Provider 10/18/21 04/15/23 Bonny Cooley MD [address] [place] [address] Assigned PCP 10/25/21 04/02/22 Bertram Elizabeth MD [address] [place] [address] Assigned PCP 04/03/22 07/23/22 Bertram Elizabeth MD [address] [place] [address] Assigned PCP 10/02/22 04/29/23 Alex Johnson MD [address] [place] [address] Rheumatology 10/04/24 documented as of this encounter
--- OUTSIDE RECORDS SUMMARY | 2024-10-28 14:52 | XMS_ITS | Encounter Summary ---
Author Organization [place] Address [address] [place] [address] Care Team Providers Care Seaport Planning Manager Name Role Phone Bettye Gonzales MD Unavailable + Bonny Cooley MD Primary Care Provider [phone] Antony Chakraborty MD Unavailable Mateo Cheema MD Unavailable Ermias Colón MD Unavailable Suzanne Fernández RN Unavailable [phone] Bonny Cooley MD Unavailable [phone] Bonny Cooley MD Unavailable [phone] Pam Hernandez MD Unavailable [phone] Lázaro Horowitz MD Unavailable Jaime Grover MD Unavailable Toni Sheth MD Unavailable Toni Sheth MD Unavailable Bertram Elizabeth MD Unavailable Bonny Cooley MD Unavailable [phone] Aminata Youssef MD Primary Care Provider Bertram Elizabeth MD Unavailable +[phone] Alex Johnson MD Unavailable Bonny Cooley MD Unavailable [phone] Bertram Elizabeth MD Unavailable +[phone] Bertram Elizabeth MD Unavailable +1-6 Alex Johnson MD Unavailable [phone] Encounter Details Date Type Department Care Team (Late st Contact Info) Description 12/14/2016 MyC Medical Advice [facility] End[facility]ology 909 [facility] 3rd [place] [address] Mateo Cheema MD [address] [address] Social History Tobacco Use Types Packs/Day Years Used Date Smoking Tobacco: Never Smokeless Tobacco: Never Alcohol Use Standard Drinks/Week Comments No 0 (1 standard drink = 0.6 oz pur e alcohol) Comments No Sex and Gender Information Value Date Recorded Sex Assigned at Female 08/28/2018 12:23 AM BILLET HEATER OPERATOR Legal Sex Female 4:46 AM BILLET HEATER OPERATOR Gender Identity Female 08/28/2018 12:23 AM BILLET HEATER OPERATOR Sexual Orientation Straight 10/11/2019 2: 51 PM BILLET HEATER OPERATOR documented as of this encounter Plan of Treatment Upcoming Encounters Date Type Department Care Team (Late st Contact Info) Description 04/25/2025 1:30 PM CDT Office Visit [facility] [address] [address] Alex Johnson MD [address] [place] [address] 88 [place] [address] documented as of this encounter Visit Diagnoses Not on filedocumented in this encounter Additional Health Concerns Infection Onset Date Last Indicated Resolved Time COVID-19 06/23/2020 06/23/2020 07/14/2020 11:4 0 PM BILLET HEATER OPERATOR Recovered COVID 07/08/2020 07/08/2020 09/21/2020 1 1:39 PM BILLET HEATER OPERATOR Assessment Noted Time PHQ-9 Depression Total Score: 6 09/22/19 17 7:27 AM BILLET HEATER OPERATOR documented as of this encounter Care Teams Seaport Planning Manager Relationship Specialty Start Date End Date Bonny Cooley MD [address] [place] [address] PCP - General Family Practice 09/30/15 06/02/21 Bonny Cooley MD [address] [address] PCP - Assigned PCP 10/05/15 10/10/18 Aminata Youssef MD [facility] & [address] [address] PCP - General Internal Medicine 06/03/21 Bettye Gonzales MD Internal Medicine 04/10/15 Antony Chakraborty MD [address] [place] [address] [address] INTERNAL MEDICINE - ENDOCRINOLOGY, DIABETES & METABOLISM 11/13/15 Mateo Cheema MD [address] [place] [address] [address] Internal Medicine 08/06/16 Ermias Colón MD [address] [address] Referring Physician Neurology 09/23/16 Suzanne Fernández, RN Clinic Stage Director Primary Care - CC 02/28/18 Bonny Cooley MD 2270 [facility] 200 [place] [address] Assigned PCP 10/05/15 07/26/20 Pam Hernandez MD [address] [place] [address] [place] [address] Assigned Behavioral Health Provider 05/30/20 08/01/21 Lázaro Horowitz MD [place] [address] [address] [place] [address] Assigned Rheumatology Provider 05/30/20 07/19/20 Jaime Grover MD [address] [place] [address] Assigned Gastroenterology Provider 05/30/20 11/14/21 Toni Sheth MD [address] [place] [address] Assigned Pediatric Specialist Provider 05/30/20 09/07/20 Toni Sheth MD 1701 [place] [address] Assigned Surgical Provider 05/30/20 04/18/21 Bertram Elizabeth MD 2270 [facility] 200 [place] [address] Assigned PCP 07/27/20 04/25/21 Bonny Cooley MD [address] [address] Assigned PCP 04/26/21 08/15/21 Bertram Elizabeth MD [address] [address] Assigned PCP 08/16/21 10/24/21 Alex Johnson MD [address] [place] [address] Assigned Rheumatology Provider 10/18/21 04/15/23 Bonny Cooley MD [address] [address] Assigned PCP 10/25/21 04/02/22 Bertram Elizabeth MD [address] [address] Assigned PCP 04/03/22 07/23/22 Bertram Elizabeth MD [address] [address] Assigned PCP 10/02/22 04/29/23 Alex Johnson MD [address] [place] [address] Rheumatology 10/04/24 documented as of this encounter
--- OUTSIDE RECORDS SUMMARY | 2024-10-28 14:52 | XMS_ITS | Encounter Summary ---
Author Organization [facility] Address [address] [place] [address] Care Team Providers Care Belt Worker Name Role Phone Bettye Gonzales MD Unavailable + Bonny Cooley MD Primary Care Provider Antony Chakraborty MD Unavailable [phone] Mateo Cheema MD Unavailable [phone] Ermias Colón MD Unavailable Suzanne Fernández RN Unavailable [phone] Bonny Cooley MD Unavailable [phone] Bonny Cooley MD Unavailable [phone] aPm Hernandez MD Unavailable [phone] Lázaro Horowitz MD Unavailable Jamie Grover MD Unavailable Toni Sheth MD Unavailable Toni Sheth MD Unavailable Bertram Elizabeth MD Unavailable Bonny Cooley MD Unavailable [phone] Aminata Youssef MD Primary Care Provider [phone] Bertram Elizabeth MD Unavailable [phone] Alex Johnson MD Unavailable Bonny Cooley MD Unavailable [phone] Bertram Elizabeth MD Unavailable [phone] Bertram Elizabeth MD Unavailable [phone] Alex Johnson MD Unavailable Reason for Visit * Reason Onset Date Comments Refill Request 12/08/2017 CELECOXIB 100MG CAPS Encounter Details Date Type Department Care Team (Late st Contact Info) Description 12/08/[address] [address] Bonny Cooley MD [address] [id number] Refill Request (CELECOXIB 100MG CAPS) Social History Tobacco Use Types Packs/Day Years Used Date Smoking Tobacco: Former Cigarettes 2 3 0 04/23/1976 - 12/17/1977 Smokeless Tobacco: Never Alcohol Use Standard Drinks/Week Comments No 0 (1 standard drink = 0.6 oz pur e alcohol) Comments No Sex and Gender Information Value Date Recorded Sex Assigned at Female 08/28/2018 12:23 AM RETAIL PRODUCT ADVISOR Legal Sex Female 4:46 AM RETAIL PRODUCT ADVISOR Gender Identity Female 08/28/2018 12:23 AM RETAIL PRODUCT ADVISOR Sexual Orientation Straight 10/11/2019 2: 51 PM RETAIL PRODUCT ADVISOR documented as of this encounter Miscellaneous Notes [...] Description 04/25/2025 1:30 PM CDT Office Visit [facility] [place] 6525 [facility] 200 [place] [address] Alex Johnson MD [address] [place] [address] 88 [place], [place] [address] documented as of this encounter Visit Diagnoses Diagnosis Osteoarthritis, unspecified osteoarthritis type, unspecified site documented in this encounter Additional Health Concerns Infection Onset Date Last Indicated Resolved Time COVID-19 06/23/2020 06/23/2020 07/14/2020 11:4 0 PM RETAIL PRODUCT ADVISOR Recovered COVID 07/08/2020 07/08/2020 09/21/2020 1 1:39 PM RETAIL PRODUCT ADVISOR Assessment Noted Time PHQ-9 Depression Total Score: 6 11/04/19 18 7:48 AM CDT documented as of this encounter Care Teams Belt Worker Relationship Specialty Start Date End Date Bonny Cooley MD [address] [place] [address] PCP - General Family Practice 09/30/15 06/02/21 Bonny Cooley MD 2270 [facility] 200 [place] [address] PCP - Assigned PCP 10/05/15 10/10/18 Aminata Youssef MD [facility] 2000 [place] [address] PCP - General Internal Medicine 06/03/21 Bettye Gonzales MD Internal Medicine 04/10/15 Antony Chakraborty MD [address] [place] [address] [address] INTERNAL MEDICINE - ENDOCRINOLOGY, DIABETES & METABOLISM 11/13/15 Mateo Cheema MD [address] [place] [address] Internal Medicine 08/06/16 Ermias Colón MD [address] [place] [address] Referring Physician Neurology 09/23/16 Suzanne Fernández RN Clinic Limnologist Primary Care - CC 02/28/18 Bonny Cooley MD [address] [id number] Assigned PCP 10/05/15 07/26/20 Pam Hernandez MD [address] [place] [address] [place] [address] Assigned Behavioral Health Provider 05/30/20 08/01/21 Lázaro Horowitz MD [address] [address] Assigned Rheumatology Provider 05/30/20 07/19/20 Jaime Grover MD [address] [place] [address] Assigned Gastroenterology Provider 05/30/20 11/14/21 Toni Sheth MD 1701 [place] [address] Assigned Pediatric Specialist Provider 05/30/20 09/07/20 Toni Sheth MD [address] [place] [address] Assigned Surgical Provider 05/30/20 04/18/21 [place] [address] [place] [address] Assigned PCP 07/27/20 04/25/21 Bonny Cooley MD [address] [place] [address] Assigned PCP 04/26/21 08/15/21 Bertram Elizabeth MD [address] [place] [address] Assigned PCP 08/16/21 10/24/21 Alex Johnson MD [address] [place] [address] Assigned Rheumatology Provider 10/18/21 04/15/23 Bonny Cooley MD [address] [place] [address] Assigned PCP 10/25/21 04/02/22 Bertram Elizabeth MD [address] [place] [address] Assigned PCP 04/03/22 07/23/22 Bertram Elizabeth MD [address] [place] [address] Assigned PCP 10/02/22 04/29/23 Alex Johnson MD [address] [place] [address] Rheumatology 10/04/24 documented as of this encounter
--- OUTSIDE RECORDS SUMMARY | 2024-10-28 14:52 | XMS_ITS | Encounter Summary ---
Author Organization [place] Address [address] [place] [address] Care Team Providers Care Yoke Setter Name Role Phone Bettye Gonzales MD Unavailable + Bonny Cooley MD Primary Care Provider Antony Chakraborty MD Unavailable Mateo Cheema MD Unavailable [phone] Ermias Colón MD Unavailable Suzanne Fernández RN Unavailable [phone] Bonny Cooley MD Unavailable [phone] Bonny Cooley MD Unavailable [phone] Pam Hernandez MD Unavailable [phone] Lázaro Horowitz MD Unavailable Jaime Grover MD Unavailable [phone] Toni Sheth MD Unavailable Toni Sheth MD Unavailable Bertram Elizabeth MD Unavailable Bonny Cooley MD Unavailable [phone] Aminata Youssef MD Primary Care Provider Bertram Elizabeth MD Unavailable +[phone] Alex Johnson MD Unavailable Bonny Cooley MD Unavailable [phone] Bertram Elizabeth MD Unavailable +[phone] Bertram Elizabeth MD Unavailable +1-6 Alex Johnson MD Unavailable Encounter Details Date Type Department Care Team (Late st Contact Info) Description 12/15/2016 MyC Medical Advice [facility] Endocrinology 909 [facility] 3rd [place] [address] Mateo Cheema MD [address] [address] Social History Tobacco Use Types Packs/Day Years Used Date Smoking Tobacco: Never Smokeless Tobacco: Never Alcohol Use Standard Drinks/Week Comments No 0 (1 standard drink = 0.6 oz pur e alcohol) Comments No Sex and Gender Information Value Date Recorded Sex Assigned at Female 08/28/2018 12:23 AM SPECIALIST FIELD ENGINEER Legal Sex Female 4:46 AM SPECIALIST FIELD ENGINEER Gender Identity Female 08/28/2018 12:23 AM SPECIALIST FIELD ENGINEER Sexual Orientation Straight 10/11/2019 2: 51 PM SPECIALIST FIELD ENGINEER documented as of this encounter Plan of Treatment Upcoming Encounters Date Type Department Care Team (Late st Contact Info) Description 04/25/2025 1:30 PM CDT Office Visit [facility] [address] [address] Alex Johnson MD [address] [place] [address] 88 [place] [address] documented as of this encounter Visit Diagnoses Not on filedocumented in this encounter Additional Health Concerns Infection Onset Date Last Indicated Resolved Time COVID-19 06/23/2020 06/23/2020 07/14/2020 11:4 0 PM SPECIALIST FIELD ENGINEER Recovered COVID 07/08/2020 07/08/2020 09/21/2020 1 1:39 PM SPECIALIST FIELD ENGINEER Assessment Noted Time PHQ-9 Depression Total Score: 6 09/22/19 17 7:27 AM SPECIALIST FIELD ENGINEER documented as of this encounter Care Teams Yoke Setter Relationship Specialty Start Date End Date Bonny Cooley MD [address] [place] [address] PCP - General Family Practice 09/30/15 06/02/21 Bonny Cooley MD [address] [address] PCP - Assigned PCP 10/05/15 10/10/18 Aminata Youssef MD [facility] & [address] [address] PCP - General Internal Medicine 06/03/21 Bettye Gonzales MD Internal Medicine 04/10/15 Antony Chakraborty MD [address] [place] [address] [address] INTERNAL MEDICINE - ENDOCRINOLOGY, DIABETES & METABOLISM 11/13/15 Mateo Cheema MD [address] [place] [address] [address] Internal Medicine 08/06/16 Ermias Colón MD [address] [address] Referring Physician Neurology 09/23/16 Suzanne Fernández, RN Clinic Clinical Laboratory Science Professor Primary Care - CC 02/28/18 Bonny Cooley MD 2270 [facility] 200 [place] [address] Assigned PCP 10/05/15 07/26/20 Pam Hernandez MD [address] [place] [address] [place] [address] Assigned Behavioral Health Provider 05/30/20 08/01/21 Lázaro Horowtiz MD [place] [address] [address] [place] [address] Assigned Rheumatology Provider 05/30/20 07/19/20 Jaime Grover MD [address] [place] [address] Assigned Gastroenterology Provider 05/30/20 11/14/21 Toni Sheth MD [address] [place] [address] Assigned Pediatric Specialist Provider 05/30/20 09/07/20 Toni Sheth MD 1701 [place] [address] Assigned Surgical Provider 05/30/20 04/18/21 Bertram Elizabeth MD 2270 [facility] 200 [place] [address] Assigned PCP 07/27/20 04/25/21 Bonny Cooley MD [address] [address] Assigned PCP 04/26/21 08/15/21 Bertram Elizabeth MD [address] [address] Assigned PCP 08/16/21 10/24/21 Alex Johnson MD [address] [place] [address] Assigned Rheumatology Provider 10/18/21 04/15/23 Bonny Cooley MD [address] [address] Assigned PCP 10/25/21 04/02/22 Bertram Elizabeth MD [address] [address] Assigned PCP 04/03/22 07/23/22 Bertram Elizabeth MD [address] [address] Assigned PCP 10/02/22 04/29/23 Alex Johnson MD [address] [place] [address] Rheumatology 10/04/24 documented as of this encounter
--- OUTSIDE RECORDS SUMMARY | 2024-10-28 14:52 | XMS_ITS | Encounter Summary ---
Author Organization [place] Address [address] [place] [address] Care Team Providers Care Captain Fire Prevention Bureau Name Role Phone Bettye Gonzales MD Unavailable + Bonny Cooley MD Primary Care Provider Antony Chakraborty MD Unavailable Mateo Cheema MD Unavailable Ermias Colón MD Unavailable Bonny Cooley MD Unavailable [phone] Pam Hernandez MD Unavailable [phone] Lázaro Horowitz MD Unavailable Jaime Grover MD Unavailable [phone] Toni Sheth MD Unavailable Toni Sheth MD Unavailable Bertram Elizabeth MD Unavailable Bonny Cooley MD Unavailable [phone] Aminata Youssef MD Primary Care Provider [phone] Bertram Elizabeth MD Unavailable [phone] Alex Johnson MD Unavailable Bonny Cooley MD Unavailable [phone] Bertram Elizabeth MD Unavailable [phone] Bertram Elizbaeth MD Unavailable [phone] Alex Johnson MD Unavailable Encounter Details Date Type Department Care Team (Late st Contact Info) Description 11/26/2019 MyC Medical Advice [facility] Rhe[facility]ology Clinic [address] [address] Toni Del Angel MD [address] [place] [address] Social History Tobacco Use Types [...] Sex Assigned at Female 08/28/2018 12:23 AM RN APPEALS Legal Sex Female 4:46 AM RN APPEALS Gender Identity Female 08/28/2018 12:23 AM RN APPEALS Sexual Orientation Straight 10/11/2019 2: 51 PM RN APPEALS COVID-19 Exposure Response Date Recorded In the [...] Office Visit [facility] [address] [address] Alex Johnson MD [address] [place] [address] documented as of this encounter Visit Diagnoses Not on filedocumented in this encounter Additional Health Concerns Infection Onset Date Last Indicated Resolved Time COVID-19 06/23/2020 06/23/2020 07/14/2020 11:4 0 PM RN APPEALS Recovered COVID 07/08/2020 07/08/2020 09/21/2020 1 1:39 PM RN APPEALS Assessment Noted Time PHQ-9 Depression Total Score: 15 020 2:41 PM RN APPEALS documented as of this encounter Care Teams Captain Fire Prevention Bureau Relationship Specialty Start Date End Date Bonny Cooley MD [address] [place] [address] PCP - General Family Practice 09/30/15 06/02/21 Aminata Youssef MD [address] [address] PCP - General Internal Medicine 06/03/21 Bettye Gonzales MD Internal Medicine 04/10/15 Antony Chakraborty MD [address] [phone] INTERNAL MEDICINE - ENDOCRINOLOGY, DIABETES & METABOLISM 11/13/15 Mateo Cheema MD [address] [address] Internal Medicine 08/06/16 Ermias Colón MD [address] [address] Referring Physician Neurology 09/23/16 Bonny Cooley MD [address] [place] [address] Assigned PCP 10/05/15 07/26/20 Pam Hernandez MD [address] [place] [address] [place] [address] Assigned Behavioral Health Provider 05/30/20 08/01/21 Lázaro Horowitz MD [address] [address] Assigned Rheumatology Provider 05/30/20 07/19/20 Jaime Grover MD [address] [place] [address] Assigned Gastroenterology Provider 05/30/20 11/14/21 Toni Sheth MD [address] [place] [id number] Assigned Pediatric Specialist Provider 05/30/20 09/07/20 Toni Sheth MD [address] [place] [id number] Assigned Surgical Provider 05/30/20 04/18/21 Bertram Elizabeth MD [address] [place] [address] Assigned PCP 07/27/20 04/25/21 Bonny Cooley MD [address] [place] [address] Assigned PCP 04/26/21 08/15/21 Bertram Elizabeth MD [address] [place] [address] Assigned PCP 08/16/21 10/24/21 Alex Johnson MD [address] [place] [address] Assigned Rheumatology Provider 10/18/21 04/15/23 Bonny Cooley MD [address] [place] [address] Assigned PCP 10/25/21 04/02/22 Bertram Elizabeth MD [address] [place] [address] Assigned PCP 04/03/22 07/23/22 Bertram Elizabeth MD [address] [place] [address] Assigned PCP 10/02/22 04/29/23 Alex Johnson MD [address] [place] [address] Rheumatology 10/04/24 documented as of this encounter
--- OUTSIDE RECORDS SUMMARY | 2024-10-28 14:52 | XMS_ITS | Encounter Summary ---
Author Organization [facility] Address [address] [place] [address] Care Team Providers Care Systems Technician Name Role Phone Bettye Gonzales MD Unavailable + Bonny Cooley MD Primary Care Provider Antony Chakraborty MD Unavailable Mateo Cheema MD Unavailable Ermias Colón MD Unavailable Suzanne Fernández RN Unavailable [phone] Bonny Cooley MD Unavailable [phone] Bonny Cooley MD Unavailable [phone] Pam Hernandez MD Unavailable [phone] Lázaro Horowitz MD Unavailable Jaime Grover MD Unavailable Toni Sheth MD Unavailable Toni Sheth MD Unavailable Bertram Elizabeth MD Unavailable Bonny Cooley MD Unavailable +[phone] Aminata Youssef MD Primary Care Provider [phone] Bertram Elizabeth MD Unavailable +1- Alex Johnson MD Unavailable [phone] Bonny Cooley MD Unavailable [phone] Bertram Elizabeth MD Unavailable +1- Bertram Elizabeth MD Unavailable +1- Alex Johnson MD Unavailable [phone] Reason for Referral * Audiology - Closed Specialty Diagnoses / Procedures Referred By Contgeovani t Referred To Contact Diagnoses Change in hearing, bilateral Bonny Cooley MD [address] [place] [address] Phone: tel: fax: MULTIPLE LOCATIONS Referral ID Status Reason Start Date Expiration Date Visits Re quested Visits Authorized [id number] Closed 12/22/2016 12/22/2017 1 1 Comments Your provider has referred you to: [facility] [place] [email or web address] [facility] [place] [email or web address] Specialty Testing: Audiogram w/Tymps and Reflexes (Comprehensive Audiology Evaluation) Reason for Visit * Reason Onset Date Comments Hearing change 12/21/2016 Encounter Details Date Type Department Care Team (Late st Contact Info) Description 12/21/2016 MyC Medical Advice [facility] [address] [place] [address] Bonny Cooley MD [address] [address] Hearing change Social History Tobacco Use Types Packs/Day Years Used Date Smoking Tobacco: Never Smokeless Tobacco: Never Alcohol Use Standard Drinks/Week Comments No 0 (1 standard drink = 0.6 oz pur e alcohol) Comments No Sex and Gender Information Value Date Recorded Sex Assigned at Female 08/28/2018 12:23 AM TOURS CAPTAIN Legal Sex Female 4:46 AM TOURS CAPTAIN Gender Identity Female 08/28/2018 12:23 AM TOURS CAPTAIN Sexual Orientation Straight 10/11/2019 2: 51 PM TOURS CAPTAIN documented as of this encounter Miscellaneous Notes * Telephone Encounter - Katlin Germain RN - 12/22/2016 10:51 AM CDT Activities Attendant responded as per below. MARY KATE Johnson, [...] Description 04/25/2025 1:30 PM CDT Office Visit [facility] [address] [place] [phone] Alex Johnson MD [address] [place] [address] Scheduled Referrals Name Type Priority Associated Diagnoses Orde r Schedule AUDIOLOGY ADULT REFERRAL Referral Routine Change in hearing, bilateral Ordered: 12/22/2016 documented as of this encounter Visit Diagnoses Diagnosis Change in hearing, bilateral- Primary documented in this encounter Additional Health Concerns Infection Onset Date Last Indicated Resolved Time COVID-19 06/23/2020 06/23/2020 07/14/2020 11:4 0 PM TOURS CAPTAIN Recovered COVID 07/08/2020 07/08/2020 09/21/2020 1 1:39 PM TOURS CAPTAIN Assessment Noted Time PHQ-9 Depression Total Score: 6 09/22/19 17 7:27 AM TOURS CAPTAIN documented as of this encounter Care Teams Systems Technician Relationship Specialty Start Date End Date Bonny Cooley MD [address] [place] [address] PCP - General Family Practice 09/30/15 06/02/21 Bonny Cooley MD [address] [address] PCP - Assigned PCP 10/05/15 10/10/18 Aminata Youssef MD [facility] [address] [place] [address] PCP - General Internal Medicine 06/03/21 Bettye Gonzales MD Internal Medicine 04/10/15 Antony Chakraborty MD [address] [place] [address] [id number] INTERNAL MEDICINE - ENDOCRINOLOGY, DIABETES & METABOLISM 11/13/15 Mateo Cheema MD [address] [place] [address] [phone] Internal Medicine 08/06/16 Ermias Colón MD [address] [place] [address] Referring Physician Neurology 09/23/16 Suzanne Fernández, RN Clinic Materials Management Supervisor Primary Care - CC 02/28/18 Bonny Cooley MD [address] [id number] Assigned PCP 10/05/15 07/26/20 Pam Hernandez MD [address] [place] [address] [place] [address] Assigned Behavioral Health Provider 05/30/20 08/01/21 Lázaro Horowitz MD [facility] [address] [place], [place] 121475 Assigned Rheumatology Provider 05/30/20 07/19/20 Jaime Grover MD [address] [place] [address] Assigned Gastroenterology Provider 05/30/20 11/14/21 Toni Sheth MD [address] [place] [address] [id number] Assigned Pediatric Specialist Provider 05/30/20 09/07/20 Toni Sheth MD [address] [place] [address] [id number] Assigned Surgical Provider 05/30/20 04/18/21 Bertram Elizabeth MD 0 [facility] 200 [place] [address] Assigned PCP 07/27/20 04/25/21 Bonny Cooley MD [address] [address] Assigned PCP 04/26/21 08/15/21 Bertram Elizabeth MD [address] [address] Assigned PCP 08/16/21 10/24/21 Alex Johnson MD [address] [place] [address] Assigned Rheumatology Provider 10/18/21 04/15/23 Bonny Cooley MD [address] [address] Assigned PCP 10/25/21 04/02/22 Bertram Elizabeth MD [address] [address] Assigned PCP 04/03/22 07/23/22 Bertram Elizabeth MD [address] [address] Assigned PCP 10/02/22 04/29/23 Alex Johnson MD [address] [place] [address] Rheumatology 10/04/24 documented as of this encounter
--- OUTSIDE RECORDS SUMMARY | 2024-10-28 14:52 | XMS_ITS | Encounter Summary ---
Author Organization [facility] Address [address] [place] [address] Care Team Providers Care Leather Lacer Name Role Phone Bettye Gonzales MD Unavailable + Bonny Cooley MD Primary Care Provider Antony Chakraborty MD Unavailable Mateo Cheema MD Unavailable Ermias Colón MD Unavailable Suzanne Fernández RN Unavailable [phone] Bonny Cooley MD Unavailable [phone] Bonny Cooley MD Unavailable [phone] Pam Hernandez MD Unavailable [phone] Lázaro Horowitz MD Unavailable Jaime Grover MD Unavailable Toni Sheth MD Unavailable Toni Sheth MD Unavailable Bertram Elizabeth MD Unavailable Bonny Cooley MD Unavailable [phone] Aminata Youssef MD Primary Care Provider Bertram Elizabeth MD Unavailable [phone] Alex Johnson MD Unavailable [phone] Bonny Cooley MD Unavailable [phone] Bertram Elizabeth MD Unavailable [phone] Bertram Elizabeth MD Unavailable +[phone] Alex Johnson MD Unavailable [phone] Encounter Details Date Type Department Care Team (Late st Contact Info) Description 02/28/2018 MyC Medical Advice [address] [address] Noe Camarena RN Social History Tobacco Use Types Packs/Day Years Used Date Smoking Tobacco: Former Cigarettes 2 3 0 04/23/1976 - 12/17/1977 Smokeless Tobacco: Never Alcohol Use Standard Drinks/Week Comments No 0 (1 standard drink = 0.6 oz pur e alcohol) Comments No Sex and Gender Information Value Date Recorded Sex Assigned at Female 08/28/2018 12:23 AM RN ACCESS Legal Sex Female 4:46 AM RN ACCESS Gender Identity Female 08/28/2018 12:23 AM RN ACCESS Sexual Orientation Straight 10/11/2019 2: 51 PM RN ACCESS documented as of this encounter Plan of Treatment Upcoming Encounters Date Type Department Care Team (Late st Contact Info) Description 04/25/2025 1:30 PM CDT Office Visit [facility] [address] [address] Alex Johnson MD [address] [place] [address] documented as of this encounter Visit Diagnoses Not on filedocumented in this encounter Additional Health Concerns Infection Onset Date Last Indicated Resolved Time COVID-19 06/23/2020 06/23/2020 07/14/2020 11:4 0 PM RN ACCESS Recovered COVID 07/08/2020 07/08/2020 09/21/2020 1 1:39 PM RN ACCESS Assessment Noted Time PHQ-9 Depression Total Score: 12 018 7:15 AM CDT documented as of this encounter Care Teams Leather Lacer Relationship Specialty Start Date End Date Bonny Cooley MD [address] [place] [address] PCP - General Family Practice 09/30/15 06/02/21 Bonny Cooley MD [address] [id number] PCP - Assigned PCP 10/05/15 10/10/18 Aminata Youssef MD [facility] & [address] [address] PCP - General Internal Medicine 06/03/21 Bettye Gonzales MD Internal Medicine 04/10/15 Antony Chakraborty MD [address] [phone] INTERNAL MEDICINE - ENDOCRINOLOGY, DIABETES & METABOLISM 11/13/15 Mateo Cheema MD [address] 312535 Internal Medicine 08/06/16 Ermias Colón MD [address] 796405 Referring Physician Neurology 09/23/16 Suzanne Fernández, RN Clinic Safety Coordinator Primary Care - CC 02/28/18 Bonny Cooley MD [address] [address] Assigned PCP 10/05/15 07/26/20 Pam Hernandez MD [address] [place] [address] [place] [address] Assigned Behavioral Health Provider 05/30/20 08/01/21 Lázaro Horowitz MD [address] [address] Assigned Rheumatology Provider 05/30/20 07/19/20 Jaime Grover MD 909 [place] [address] Assigned Gastroenterology Provider 05/30/20 11/14/21 Toni Sheth MD [address] [place] [address] [id number] Assigned Pediatric Specialist Provider 05/30/20 09/07/20 Toni Sheth MD 17[address] [place] [address] Assigned Surgical Provider 05/30/20 04/18/21 Bertram Elizabeth MD 2270 [facility] 200 [place] [address] Assigned PCP 07/27/20 04/25/21 Bonny Cooley MD [address] [address] Assigned PCP 04/26/21 08/15/21 Bertram Elizabeth MD [address] [address] Assigned PCP 08/16/21 10/24/21 Alex Johnson MD [address] [place] [address] Assigned Rheumatology Provider 10/18/21 04/15/23 Bonny Cooley MD [address] [address] Assigned PCP 10/25/21 04/02/22 Bertram Elizabeth MD [address] [address] Assigned PCP 04/03/22 07/23/22 Bertram Elizabeth MD [address] [address] Assigned PCP 10/02/22 04/29/23 Alex Johnson MD [address] [place] [address] Rheumatology 10/04/24 documented as of this encounter
--- OUTSIDE RECORDS SUMMARY | 2024-10-28 14:52 | XMS_ITS | Encounter Summary ---
Author Organization [facility] Address [address] [place] [address] Care Team Providers Care Splunk Consultant Name Role Phone Bettye Gonzales MD Unavailable + Bonny Cooley MD Primary Care Provider [phone] Antony Chakraborty MD Unavailable [phone] Mateo Cheema MD Unavailable [phone] Ermias Colón MD Unavailable Pam Hernandez MD Unavailable Jaime Grover MD Unavailable Bonny Cooley MD Unavailable [phone] Aminata Youssef MD Primary Care Provider Bertram Elizabeth MD Unavailable Aelx Johnson MD Unavailable Bonny Cooley MD Unavailable [phone] Bertram Elizabeth MD Unavailable [phone] Bertram Elizabeth MD Unavailable Alex Johnson MD Unavailable Reason for Visit * Reason Comments Medication Refill Encounter Details Date Type Department Care Team (Late st Contact Info) Description 05/06/2021 Refill [facility] 64[address] [facility] [place] [facility] [place] [phone] Bonny Cooley MD 2270 [facility] 200 [place] [address] Medication Refill Social History Tobacco Use Types [...] Sex Assigned at Female 08/28/2018 12:23 AM LAB REP Legal Sex Female 4:46 AM LAB REP Gender Identity Female 08/28/2018 12:23 AM LAB REP Sexual Orientation Straight 10/11/2019 2: 51 PM LAB REP documented as of this encounter Miscellaneous Notes [...] Safety concerns - MARY KATE Liu RN [facility] documented in this encounter Plan of Treatment Upcoming Encounters Date Type Department Care Team (Late st Contact Info) Description 04/25/2025 1:30 PM CDT Office Visit [facility] [address] [address] Alex Johnson MD [address] [place] [address] 88 [place] [address] documented as of this encounter Visit Diagnoses Diagnosis Major depressive disorder, recurrent episode, moderate (H) Major depressive disorder, recurrent episode, moderate documented in this encounter Additional Health Concerns Assessment Noted Time PHQ-9 Depression Total Score: 11 020 2:18 PM CDT documented as of this encounter Care Teams Splunk Consultant Relationship Specialty Start Date End Date Bonny Cooley MD [address] [place] [address] PCP - General Family Practice 09/30/15 06/02/21 Aminata Youssef MD [facility] [address] [place] [address] PCP - General Internal Medicine 06/03/21 Bettye Gonzales MD Internal Medicine 04/10/15 Antony Chakraborty MD [address] [place] [address] [address] INTERNAL MEDICINE - ENDOCRINOLOGY, DIABETES & METABOLISM 11/13/15 Mateo Cheema MD [address] [address] Internal Medicine 08/06/16 Ermias Colón MD [address] [address] Referring Physician Neurology 09/23/16 Pam Hernandez MD [address] [place] [address] [place] [address] Assigned Behavioral Health Provider 05/30/20 08/01/21 Jaime Grover MD [address] [place] [address] Assigned Gastroenterology Provider 05/30/20 11/14/21 Bonny Cooley MD [address] [place] [address] Assigned PCP 04/26/21 08/15/21 Bertram Elizabeth MD [address] [place] [address] Assigned PCP 08/16/21 10/24/21 Alex Johnson MD [address] [place] [address] Assigned Rheumatology Provider 10/18/21 04/15/23 Bonny Cooley MD [address] [address] Assigned PCP 10/25/21 04/02/22 Bertram Elizabeth MD [address] [address] Assigned PCP 04/03/22 07/23/22 Bertram Elizabeth MD [address] [address] Assigned PCP 10/02/22 04/29/23 Alex Johnson MD [address] [place] [address] Rheumatology 10/04/24 documented as of this encounter
--- OUTSIDE RECORDS SUMMARY | 2024-10-28 14:52 | XMS_ITS | Encounter Summary ---
Author Organization [facility] Address [address] [place] [address] Care Team Providers Care Scooping Machine Tender Name Role Phone Bettye Gonzales MD Unavailable + Bonny Cooley MD Primary Care Provider Antony Chakraborty MD Unavailable [phone] Mateo Cheema MD Unavailable [phone] Ermias Colón MD Unavailable Bonny Cooley MD Unavailable [phone] Pam Hernandez MD Unavailable [phone] Lázaro Horowitz MD Unavailable Jaime Grover MD Unavailable [phone] Toni Sheth MD Unavailable Toni Sheth MD Unavailable Bertram Elizabeth MD Unavailable Bonny Cooley MD Unavailable Aminata Youssef MD Primary Care Provider [phone] Bertram Elizabeth MD Unavailable [phone] Alex Johnson MD Unavailable [phone] Bonny Cooley MD Unavailable [phone] Bertram Elizabeth MD Unavailable Bertram Elizabeth MD Unavailable Alex Johnson MD Unavailable [phone] Encounter Details Date Type Department Care Team (Late st Contact Info) Description 02/27/2019 MyC Medical Advice [address] [address] [place] Social History Tobacco [...] Sex Assigned at Female 08/28/2018 12:23 AM ROD BUSTER HELPER Legal Sex Female 4:46 AM ROD BUSTER HELPER Gender Identity Female 08/28/2018 12:23 AM ROD BUSTER HELPER Sexual Orientation Straight 10/11/2019 2: 51 PM ROD BUSTER HELPER documented as of this encounter Plan of Treatment Upcoming Encounters Date Type Department Care Team (Late st Contact Info) Description 04/25/2025 1:30 PM CDT Office Visit [facility] [address] [address] Alex Johnson MD [address] [place] [address] documented as of this encounter Visit Diagnoses Not on filedocumented in this encounter Additional Health Concerns Infection Onset Date Last Indicated Resolved Time COVID-19 06/23/2020 06/23/2020 07/14/2020 11:4 0 PM ROD BUSTER HELPER Recovered COVID 07/08/2020 07/08/2020 09/21/2020 1 1:39 PM ROD BUSTER HELPER Assessment Noted Time PHQ-9 Depression Total Score: 11 019 2:43 PM CDT documented as of this encounter Care Teams Scooping Machine Tender Relationship Specialty Start Date End Date Bonny Cooley MD [address] [place] [address] PCP - General Family Practice 09/30/15 06/02/21 Aminata Youssef MD [facility] [address] [place] [address] PCP - General Internal Medicine 06/03/21 Bettye Gonzales MD MD Internal Medicine 04/10/15 Antony Chakraborty MD [address] [facility] [address] [address] MD INTERNAL MEDICINE - ENDOCRINOLOGY, DIABETES & METABOLISM 11/13/15 Mateo Cheema MD [address] [facility] [address] 094705 Internal Medicine 08/06/16 Ermias Colón MD [address] [address] [address] Referring Physician Neurology 09/23/16 Bonny Cooley MD [address] [address] Assigned PCP 10/05/15 07/26/20 Pam Hernandez MD [address] [place] [address] [place] [address] Assigned Behavioral Health Provider 05/30/20 08/01/21 Lázaro Horowitz MD [facility] [address] [place] [address] Assigned Rheumatology Provider 05/30/20 07/19/20 Jaime Grover MD [address] [place] [address] Assigned Gastroenterology Provider 05/30/20 11/14/21 [place] [address] [place] [address] Assigned Pediatric Specialist Provider 05/30/20 09/07/20 Toni Sheth MD [address] [place] [address] Assigned Surgical Provider 05/30/20 04/18/21 Bertrma Elizabeth MD [address] [address] Assigned PCP 07/27/20 04/25/21 Bonny Cooley MD [address] [address] Assigned PCP 04/26/21 08/15/21 Bertram Elizabeth MD [address] [address] Assigned PCP 08/16/21 10/24/21 Alex Johnson MD [address] [address] Assigned Rheumatology Provider 10/18/21 04/15/23 Bonny Cooley MD [address] [address] Assigned PCP 10/25/21 04/02/22 Bertram Elizabeth MD [address] [address] Assigned PCP 04/03/22 07/23/22 Bertram Elizabeth MD [address] [address] Assigned PCP 10/02/22 04/29/23 Alex Johnson MD [address] [place] [address] Rheumatology 10/04/24 documented as of this encounter
--- OUTSIDE RECORDS SUMMARY | 2024-10-28 14:52 | XMS_ITS | Encounter Summary ---
Author Organization [facility] Address [address] [place] [address] Care Team Providers Care Crew Person Name Role Phone Bettye Gonzales MD Unavailable + Bonny Cooley MD Primary Care Provider Antony Chakraborty MD Unavailable [phone] Mateo Cheema MD Unavailable Ermias Colón MD Unavailable Bonny Cooley MD Unavailable [phone] Pam Hernandez MD Unavailable [phone] Lázaro Horowitz MD Unavailable Jaime Grover MD Unavailable Toni Sheth MD Unavailable Toni Sheth MD Unavailable Bertram Elizabeth MD Unavailable Bonny Cooley MD Unavailable [phone] Aminata Youssef MD Primary Care Provider Bertram Elizabeth MD Unavailable [phone] Alex Johnson MD Unavailable Bonny Cooley MD Unavailable [phone] Bertram Elizabeth MD Unavailable [phone] Bertram Elizabeth MD Unavailable [phone] Alex Johnson MD Unavailable Encounter Details Date Type Department Care Team (Late st Contact Info) Description 08/27/2019 MyC Medical Advice [facility] [address] [address] Toni Del Angel MD [facility] 420 [facility] 284 [place] [address] Social History Tobacco Use Types [...] Sex Assigned at Female 08/28/2018 12:23 AM 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 HIGH SCHOOL 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 Legal Sex Female 4:46 AM JUNIOR HIGH SCHOOL TEACHER Gender Identity Female 08/28/2018 12:23 AM JUNIOR HIGH SCHOOL TEACHER Sexual Orientation Straight 10/11/2019 2: 51 PM JUNIOR HIGH SCHOOL TEACHER documented as of this encounter Plan of Treatment Upcoming Encounters Date Type Department Care Team (Late st Contact Info) Description 04/25/2025 1:30 PM CDT Office Visit [facility] [address] [address] Alex oJhnson MD [address] [place] [address] documented as of this encounter Visit Diagnoses Not on filedocumented in this encounter Additional Health Concerns Infection Onset Date Last Indicated Resolved Time COVID-19 06/23/2020 06/23/2020 07/14/2020 11:4 0 PM JUNIOR HIGH SCHOOL TEACHER Recovered COVID 07/08/2020 07/08/2020 09/21/2020 1 1:39 PM JUNIOR HIGH SCHOOL TEACHER Assessment Noted Time PHQ-9 Depression Total Score: 16 07/24/2 019 2:39 PM JUNIOR HIGH SCHOOL TEACHER documented as of this encounter Care Teams Crew Person Relationship Specialty Start Date End Date Bonny Cooley MD [address] [place] [address] PCP - General Family Practice 09/30/15 06/02/21 Aminata Youssef MD [facility] [address] [place] [address] PCP - General Internal Medicine 06/03/21 Bettye Gonzales MD MD Internal Medicine 04/10/15 Antony Chakraborty MD [address] [address] INTERNAL MEDICINE - ENDOCRINOLOGY, DIABETES & METABOLISM 11/13/15 Mateo Cheema MD [address] [address] Internal Medicine 08/06/16 Ermias Colón MD [address] 928885 Referring Physician Neurology 09/23/16 [place] [address] [place] [address] Assigned PCP 10/05/15 07/26/20 Pam Hernandez MD [address] [place] [address] [place] [address] Assigned Behavioral Health Provider 05/30/20 08/01/21 Lázaro Horowitz MD [facility] [address] [place] [address] Assigned Rheumatology Provider 05/30/20 07/19/20 Jaime Grover MD [address] [place] [address] Assigned Gastroenterology Provider 05/30/20 11/14/21 Toni Sheth MD [address] [place] [address] Assigned Pediatric Specialist Provider 05/30/20 09/07/20 Toni Sheth MD [address] [place] [address] Assigned Surgical Provider 05/30/20 04/18/21 Bertram Elizabeth MD [address] [place] [address] Assigned PCP 07/27/20 04/25/21 Bonny Cooley MD [address] [place] [address] Assigned PCP 04/26/21 08/15/21 Bertram Elizabeth MD [address] [place] [address] [place] [address] Assigned PCP 08/16/21 10/24/21 Alex Johnson MD [address] [place] [address] Assigned Rheumatology Provider 10/18/21 04/15/23 Bonny Cooley MD [address] [address] Assigned PCP 10/25/21 04/02/22 Bertram Elizabeth MD [address] [address] Assigned PCP 04/03/22 07/23/22 Bertram Elizabeth MD [address] [address] Assigned PCP 10/02/22 04/29/23 Alex Johnson MD [address] [place] [address] Rheumatology 10/04/24 documented as of this encounter
--- OUTSIDE RECORDS SUMMARY | 2024-10-28 14:53 | XMS_ITS | Encounter Summary ---
Author Organization [facility] Address [address] [place] [address] Care Team Providers Care Audit Intern Name Role Phone Bettye Gonzales MD Unavailable + Bonny Cooley MD Primary Care Provider [phone] Antony Chakraborty MD Unavailable [phone] Mateo Cheema MD Unavailable [phone] Ermias Colón MD Unavailable Suzanne Fernández RN Unavailable [phone] Bonny Cooley MD Unavailable [phone] Bonny Cooley MD Unavailable [phone] Pam Hernandez MD Unavailable [phone] Lázaro Horowitz MD Unavailable Jaime Grover MD Unavailable Toni Sheth MD Unavailable Toni Sheth MD Unavailable Bertram Elizabeth MD Unavailable Bonny Cooley MD Unavailable [phone] Aminata Youssef MD Primary Care Provider Bertram Elizabeth MD Unavailable [phone] Alex Johnson MD Unavailable Bonny Cooley MD Unavailable [phone] Bertram Elizabeth MD Unavailable [phone] Bertram Elizabeth MD Unavailable [phone] Alex Johnson MD Unavailable Encounter Details Date Type Department Care Team (Late st Contact Info) Description 02/11/2018 MyC Medical Advice [address] [phone] Kathryn Brenner Social History Tobacco Use Types Packs/Day Years Used Date Smoking Tobacco: Former Cigarettes 2 3 0 04/23/1976 - 12/17/1977 Smokeless Tobacco: Never Alcohol Use Standard Drinks/Week Comments No 0 (1 standard drink = 0.6 oz pur e alcohol) Comments No Sex and Gender Information Value Date Recorded Sex Assigned at Female 08/28/2018 12:23 AM MATCH UP WORKER Legal Sex Female 4:46 AM MATCH UP WORKER Gender Identity Female 08/28/2018 12:23 AM MATCH UP WORKER Sexual Orientation Straight 10/11/2019 2: 51 PM MATCH UP WORKER documented as of this encounter Plan of Treatment Upcoming Encounters Date Type Department Care Team (Late st Contact Info) Description 04/25/2025 1:30 PM CDT Office Visit [facility] [address] [address] Alex Johnson MD [address] [place] [address] documented as of this encounter Visit Diagnoses Not on filedocumented in this encounter Additional Health Concerns Infection Onset Date Last Indicated Resolved Time COVID-19 06/23/2020 06/23/2020 07/14/2020:4 0 PM MATCH UP WORKER Recovered COVID 07/08/2020 07/08/2020 09/21/2020 1 1:39 PM MATCH UP WORKER Assessment Noted Time PHQ-9 Depression Total Score: 12 018 7:15 AM CDT documented as of this encounter Care Teams Audit Intern Relationship Specialty Start Date End Date Bonny Cooley MD [address] [place] [address] PCP - General Family Practice 09/30/15 06/02/21 Bonny Cooley MD [address] [id number] PCP - Assigned PCP 10/05/15 10/10/18 Aminata Youssef MD [facility] & [address] [address] PCP - General Internal Medicine 06/03/21 Bettye Gonzales MD Internal Medicine 04/10/15 Antony Chakraborty MD [address] [address] INTERNAL MEDICINE - ENDOCRINOLOGY, DIABETES & METABOLISM 11/13/15 Mateo Cheema MD [address] 267925 Internal Medicine 08/06/16 Ermias Colón MD [address] [address] Referring Physician Neurology 09/23/16 Suzanne Fernández, RN Clinic Explosive Technician Primary Care - CC 02/28/18 Bonny Cooley MD [address] [address] Assigned PCP 10/05/15 07/26/20 Pam Hernandez MD [address] [place] [address] [place] [address] Assigned Behavioral Health Provider 05/30/20 08/01/21 Lázaro Horowitz MD [address] [address] Assigned Rheumatology Provider 05/30/20 07/19/20 Jaime Grover MD [address] [place] [address] Assigned Gastroenterology Provider 05/30/20 11/14/21 Toni Sheth MD [address] [place] [address] Assigned Pediatric Specialist Provider 05/30/20 09/07/20 [place] [address] [place] [address] Assigned Surgical Provider 05/30/20 04/18/21 Bertram Elizabeth MD [address] [address] Assigned PCP 07/27/20 04/25/21 Bonny Cooley MD 0 [facility] [address] [place] [address] Assigned PCP 04/26/21 08/15/21 Bertram Elizabeth MD 0 [facility] [address] [place] [address] Assigned PCP 08/16/21 10/24/21 Alex Johnson MD [address] [place] [address] Assigned Rheumatology Provider 10/18/21 04/15/23 Bonny Cooley MD [address] [place] [address] Assigned PCP 10/25/21 04/02/22 Bertram Elizabeth MD [address] [place] [address] Assigned PCP 04/03/22 07/23/22 Bertram Elizabeth MD [address] [address] Assigned PCP 10/02/22 04/29/23 Alex Johnson MD [address] [place] [address] Rheumatology 10/04/24 documented as of this encounter
--- OUTSIDE RECORDS SUMMARY | 2024-10-28 14:53 | XMS_ITS | Clinical Summary ---
Author Organization [facility] Address [address] [place] [address] Care Team Providers Care Cold Saw Operator Name Role Phone Bettye Gonzales MD Unavailable + Antony Chakraborty MD Unavailable Mateo Cheema MD Unavailable Ermias Colón MD Unavailable Aminata Youssef MD Primary Care Provider Alex Johnson MD Unavailable Allergies Active Allergy Reactions Criticality Noted Date Comments Dust Mites 11/19/2013 Milk (Cow) Other (See Comments) 12/01/2018 foggy and tired Mold 11/19/2013 Pollen Extract 12/01/2018 Other reaction(s): Headache Trees 11/19/2013 Medications Evening [place] Oil CAPS Take 1,300 mg by mouth [...] Patient not taking.Reported on 10/09/2024 nystatin (MYCOSTATIN) [id number] UNIT/GM external powderIndications :Intertrigo Apply topically 2 [...] refills, please schedule a follow-up appointment at [phone] 12 tablet 021 2024 Discontinued methotrexate 2.5 [...] Department Care Team Description 10/09/2024 2:30 PM POULTRY HANGER Virtual Visit [address] [address] Alex Johnson MD oysterman methotrexate user (Primary Dx); Rheumatoid arthritis of multiple sites without rheumatoid factor (H) 10/04/2024 Travel 09/03/2024 Refill [facility] [address] [address] Alex Johnson MD Medication Refill [...] Sex Assigned at Female 08/28/2018 12:23 AM POULTRY HANGER Legal Sex Female 4:46 AM POULTRY HANGER Gender Identity Female 08/28/2018 12:23 AM POULTRY HANGER Sexual Orientation Straight 10/11/2019 2: 51 PM POULTRY HANGER Last Filed Vital Signs Vital Sign Reading Time Taken Comments Blood Pressure 135/69 07/08/2020 10:47 AM POULTRY HANGER Pulse 80 07/08/2020 10:47 AM POULTRY HANGER Temperature 37 C (98.6 F) 04/23/2020 4:29 PM CDT Respiratory Rate 25 07/08/2020 10:05 AM POULTRY HANGER Oxygen Saturation 98% 07/08/2020 10:49 AM POULTRY HANGER Inhaled Oxygen Concentration - - Weight 81.6 kg (180 lb) 05/14/2020 2:51 PM CDT Height 166.4 cm (5' 5.5) 05/14/2020 2:51 PM CDT Body Mass Index 29.5 05/14/2020 2:51 PM CDT Plan of Treatment Upcoming Encounters Date Type Department Care Team (Late st Contact Info) Description 04/25/2025 1:30 PM CDT Office Visit [facility] [address] [address] Alex Johnson MD [address] [place] [address] [id number] Health Maintenance Due Date Last Done Comments [...] Diagnosis Comments COLONOSCOPY Routine 07/08/2020 8:56 AM POULTRY HANGER COMPREHENSIVE METABOLIC PANEL Routine 07/24/2019 3:29 PM POULTRY HANGER Other fatigue MA SCREENING DIGITAL BILATERAL Routine 08/16/2018 11:45 AM POULTRY HANGER Encounter for screening mammogram for breast cancer LIPID PROFILE Routine 12/21/2017 1:42 PM CDT Hyperlipidemia with target LDL less than 130 DX BONE DENSITY Routine 12/10/2016 5:01 PM CDT Osteoporosis from Last 3 Months or Most Recently Relevant to Health Maintenance Results * COLONOSCOPY (07/08/2020 8:56 AM POULTRY HANGER) [address] [place] [id number] [phone] Endoscopy Department Patient Name: Lowell Miller Procedure [...] of the exam. Signature of teaching physician [id number] Grover MD Number of Addenda: 0 Note Initiated On: 07/08/2020 8:56 AM Scope In: Scope Out: RADIOLOGY RESULTS 07/08/2020 8:56 AM POULTRY HANGER Bonny Cooley MD PROCEDURES Final Result RADIOLOGY RESULTS * (ABNORMAL) Comprehensive metabolic panel (BMP + Alb, Alk Phos, ALT, AST, Total. Bili, TP) (07/24/2019 3:29 PM POULTRY HANGER) Sodium 143 133 - 144 mmol/L 07/25/2019 9:58 AM POULTRY HANGER [facility] Potassium 4.5 3.4 - 5.3 mmol/L 07/25/2019 9:58 AM POULTRY HANGER [facility] Chloride 112(H) 94 - 109 mmol/L 07/25/2019 9:58 AM [facility] Carbon Dioxide 24 20 - 32 mmol/L 07/25/2019 10:31 AM [facility] Anion Gap 7 3 - 14 mmol/L 07/25/2019 10:31 AM [facility] Glucose 92 70 - 99 mg/dL 07/25/2019 10:31 AM [facility] Comment:Non Fasting Urea Nitrogen 19 7 - 30 mg/dL 07/25/2019 10:31 AM [facility] Creatinine 0.80 0.52 - 1.04 mg/dL 07/25/2019 10:31 AM [facility] GFR Estimate 72 >60 mL/min/{1 .73_m2} 07/25/2019 10:31 AM [facility] Comment: Non GFR Calc Starting 07/25/2018, serum creatinine based estimated GFR (eGFR) will be calculated using the Chronic Kidney Disease Epidemiology Collaboration (CKD-EPI) equation. GFR Estimate If Black 84 >60 mL/min/{1 .73_m2} 07/25/2019 10:31 AM [facility] Comment: GFR Calc Starting 07/25/2018, serum creatinine based estimated GFR (eGFR) will be calculated using the Chronic Kidney Disease Epidemiology Collaboration (CKD-EPI) equation. Calcium 9.9 8.5 - 10.1 mg/dL 07/25/2019 10:31 AM [facility] Bilirubin Total 0.3 0.2 - 1.3 mg/dL 07/25/2019 10:36 AM [facility] Albumin 3.8 3.4 - 5.0 g/dL 07/25/2019 10:36 AM [facility] Protein Total 6.8 6.8 - 8.8 g/dL 07/25/2019 10:36 AM [facility] Alkaline Phosphatase 97 40 - 150 U/L 07/25/2019 10:36 AM [facility] ALT 34 0 - 50 U/L 07/25/2019 10:36 AM [facility] AST 21 0 - 45 U/L 07/25/2019 10:36 AM POULTRY HANGER [facility] Blood specimen (specimen) 07/24/2019 3:29 PM POULTRY HANGER 07/24/2019 3:30 PM POULTRY HANGER us Bonny Cooley MD LAB - BLOOD ORDERABLES Final R esult [facility] [address] [place] [address] * *MA Screening Digital Bilateral (08/16/2018 11:45 AM POULTRY HANGER) Anatomical Region Laterality Modality Breast Bilateral Mammography Impressions 08/17/2018 10:40 AM POULTRY HANGER IMPRESSION: BI-RADS CATEGORY: 1 - NEGATIVE. RECOMMENDED FOLLOW-UP: Annual Mammography. The patient will be notified of the results. I have personally reviewed the examination and initial interpretation and I agree with the findings. YOSEPH PERALTA MD Narrative 08/17/2018 10:40 AM POULTRY HANGER Examination: Bilateral digital screening mammography with computer aided detection. History: No symptoms, routine screening. Comparison: Diagnostic mammogram 05/09/2015. Screening mammogram 05/07/2015. BREAST DENSITY: Scattered fibroglandular densities.. Findings: No significant change. Result [facility] Bonny Cooley MD IMG MAMMOGRAPHY ORDERABLES Fin al Result * (ABNORMAL) Lipid Profile (Chol, Trig, HDL, LDL calc) (12/21/2017 1:42 PM CDT) Cholesterol 203(H) <200 mg/dL 12/22/2017 12:46 PM CDT [facility] Comment:Desirable: <200 mg/d l Triglycerides 101 <150 mg/dL 12/22/2017 12:46 PM CDT [facility] Comment:Non Fasting HDL Cholesterol 54 >49 mg/dL 8 12:46 PM CDT [facility] LDL Cholesterol Calculated 129(H) <100 mg/dL 12/22/2017 12:46 PM CDT [facility] Comment: Above desirable: 100-129 mg/dl Borderline High: 130-159 mg/dL High: 160-189 mg/dL Very high: >189 mg/dl Non HDL Cholesterol 149(H) <130 mg/dL 12/22/2017 12:46 PM CDT [facility] Comment: Above Desirable: 130-159 mg/dl Borderline high: 160-189 mg/dl High: 190-219 mg/dl Very high: >219 mg/dl Blood specimen (specimen) 12/21/2017 1:42 PM CDT 12/21/2017 1:43 PM CDT us Bonny Cooley MD LAB - BLOOD ORDERABLES Final R esult [facility] [address] [place] [address] * DX Hip/Pelvis/Spine (12/10/2016 5:01 PM CDT) Anatomical Region Laterality Modality Dexa Bone Mineral Den sity Narrative 12/10/2016 9:14 PM CDT ATTENTION: Easy to read DXA/VFA reports (formatted and presented as tables) can be found in EPIC under Chart review > Imaging tab > DXA [facility] [address] [place] [address] Phone: Fax: FINAL REPORT Patient name: LOWELL MILLER ([id number] ) Patient demographics: 72.3 year old White Female of 64.5 in. height and 152.0 lbs. weight Ordering provider: BONNY COOLEY History: HIGH CALCIUM, Hyperparathyroid, KIDNEY STONES, LOW BONE DENSITY, LOW VITAMIN D, MS, OVARIES REMOVED (1 OR 2), POSTMENOPAUSAL, reformed tobacco habit Current treatments: PREDNISONE, Vitamin D Scan: DXA exam ([id number] ): Talk[facility] Prodigy Exam date: 12/10/2016 Comparison: 12/10/2016 09/13/2013 [...] to you and your patient. Principal result senior network engineer: Abbey Morejon MD, CCD Customer Engagement Representativepublic information director Division of Endocrinology References: 1. ISCD position statements: www.[email or web address].org (includes the report of the 2015 Position Development Conference) 2. LSC = least significant changes at the [facility] AP spine = 0.032 g/cm2 (01.31.2007) [...] Advance Directives For more information, please contact: [phone] * Full Code (Latest Code Status on File) Date Activated Date Inactivated Comments 08/29/2018 11:12 AM 07/08/2020 8:36 AM Question Answer Comments Code status determined by: Discussion with amaris cuadra/legal decision maker * Full Code Date Activated Date Inactivated Comments 08/28/2018 4:12 PM 08/29/2018 11:12 AM Question Answer Comments Code status determined by: Discussion with amaris nt/legal decision maker Care Teams Cold Saw Operator Relationship Specialty Start Date End Date Aminata Youssef MD [facility] [address] [place] [address] PCP - General Internal Medicine 06/03/21 Bettye Gonzales MD Internal Medicine 04/10/15 Antony Chakraborty MD [address] [address] INTERNAL MEDICINE - ENDOCRINOLOGY, DIABETES & METABOLISM 11/13/15 Mateo Cheema MD [address] [address] Internal Medicine 08/06/16 Ermias Colón MD [address] [address] Referring Physician Neurology 09/23/16 Alex Johnson MD [address] [place] [address] 949275 Rheumatology 10/04/24
--- OUTSIDE RECORDS SUMMARY | 2024-10-28 14:53 | XMS_ITS | Encounter Summary ---
Author Organization [facility] Address [address] [place] [address] Care Team Providers Care Drywall Hanger Name Role Phone Mila Carranza MD Primary Care Provider [phone] Marci Combs MD Primary Care Provider + [phone] Mila Gil APRN [facility] Primary Care Provid er Bettye Gonzales MD Unavailable + Bettye Gonzales MD Primary Care Prov ider Bonny Cooley MD Primary Care Provider [phone] Antony Chakraborty MD Unavailable [phone] Mateo Cheema MD Unavailable [phone] Ermias Colón MD Unavailable Suzanne Fernández RN Unavailable [phone] Bonny Cooley MD Unavailable [phone] Bonny Cooley MD Unavailable [phone] Pam Hernandez MD Unavailable [phone] Lázaro Horowitz MD Unavailable [phone] Jaime Grover MD Unavailable Toni Sheth MD Unavailable Toni Sheth MD Unavailable [phone] Bertram Elizabeth MD Unavailable [phone] Bonny Cooley MD Unavailable [phone] Aminata Youssef MD Primary Care Provider Bertram Elizabeth MD Unavailable [phone] Alex Johnson MD Unavailable Bonny Cooley MD Unavailable [phone] Bertram Elizabeth MD Unavailable [phone] Bertram Elizabeth MD Unavailable [phone] Alex Johnson MD Unavailable [phone] Encounter Details Date Type Department Care Team (Late st Contact Info) Description 09/02/2011 Telephone [facility] Behavioral Health Intake [address] [place] [address] Generic, Behavioral Intake, Social History Tobacco Use Types Packs/Day Years Used Date Smoking Tobacco: Never Assessed Smokeless Tobacco: Never Alcohol Use Standard Drinks/Week Comments No 0 (1 standard drink = 0.6 oz pur e alcohol) Comments No Sex and Gender Information Value Date Recorded Sex Assigned at Female 08/28/2018 12:23 AM DIE TURNER Legal Sex Female 4:46 AM DIE TURNER Gender Identity Female 08/28/2018 12:23 AM DIE TURNER Sexual Orientation Straight 10/11/2019 2: 51 PM DIE TURNER documented as of this encounter Miscellaneous Notes * Telephone Encounter - Joselyn Rodriges - 09/15/2011 4:35 PM CST Left message for client to call back to set up assessment appointment. 2nd message left await call back from client. TURNER * Telephone Encounter - Joselyn Rodriges - 09/09/2011 2:26 PM CST Left message for client to call back to set up assessment appointment. TURNER * Telephone Encounter - Joselyn Rodriges - 09/03/2011 11:59 AM CST Referral received. TURNER * Telephone Encounter - Ac Magana - [...] call the home number for intake. kab TURNER documented in this encounter Plan of Treatment Upcoming Encounters Date Type Department Care Team (Late st Contact Info) Description 04/25/2025 1:30 PM CDT Office Visit [facility] [address] [address] Alex Johnson MD [address] [place] [address] documented as of this encounter Visit Diagnoses Not on filedocumented in this encounter Additional Health Concerns Infection Onset Date Last Indicated Resolved Time COVID-19 06/23/2020 06/23/2020 07/14/2020 11:4 0 PM DIE TURNER Recovered COVID 07/08/2020 07/08/2020 09/21/2020 1 1:39 PM DIE TURNER documented as of this encounter Care Teams Drywall Hanger Relationship Specialty Start Date End Date Mila Carranza MD [address] [phone] PCP - General Family Practice 01/21/12 09/13/13 Marci Combs MD [facility] [address] [facility] [address] [place] [address] PCP - General Family Practice 09/14/13 11/27/14 Mila Gil APRN [facility] [address] [place] [address] PCP - General Nurse Practitioner 11/28/14 04/30/15 Bettye Gonzales MD [address] [place] [address] PCP - General Internal Medicine 05/01/15 09/29/15 Bonny Cooley MD [address] [place] [address] PCP - General Family Practice 09/30/15 06/02/21 Bonny Cooley MD [address] [address] PCP - Assigned PCP 10/05/15 10/10/18 Aminata Youssef MD [facility] & [address] [address] PCP - General Internal Medicine 06/03/21 Bettye Gonzales MD [address] [place] [address] Internal Medicine 04/10/15 Antony Chakraborty MD [address] [address] INTERNAL MEDICINE - ENDOCRINOLOGY, DIABETES & METABOLISM 11/13/15 Mateo Cheema MD [address] [address] Internal Medicine 08/06/16 Ermias Colón MD [address] [address] Referring Physician Neurology 09/23/16 Suzanne Fernández, [facility] Family Member Caretaker Primary Care - CC 02/28/18 Bonny Cooley MD [address] [place] [address] Assigned PCP 10/05/15 07/26/20 Pam Hernandez MD [address] [place] [address] [place] [address] Assigned Behavioral Health Provider 05/30/20 08/01/21 Lázaro Horowitz MD [facility] [address] [place] [address] Assigned Rheumatology Provider 05/30/20 07/19/20 Jaime Grover MD [address] [place] [address] Assigned Gastroenterology Provider 05/30/20 11/14/21 Toni Sheth MD [address] [place] [address] Assigned Pediatric Specialist Provider 05/30/20 09/07/20 Toni Sheth MD [address] [place] [address] Assigned Surgical Provider 05/30/20 04/18/21 Bertram Elizabeth MD [address] [place] [address] Assigned PCP 07/27/20 04/25/21 Bonny Cooley MD [address] [place] [address] Assigned PCP 04/26/21 08/15/21 Bertram Elizabeth MD [address] [place] [address] Assigned PCP 08/16/21 10/24/21 Alex Johnson MD [address] [place] [address] Assigned Rheumatology Provider 10/18/21 04/15/23 Bonny Cooley MD [address] [place] [address] Assigned PCP 10/25/21 04/02/22 Bertram Elizabeth MD [address] [place] [address] Assigned PCP 04/03/22 07/23/22 Bertram Elizabeth MD [address] [address] Assigned PCP 10/02/22 04/29/23 Alex Johnson MD [address] [place] [address] Rheumatology 10/04/24 documented as of this encounter
--- OUTSIDE RECORDS SUMMARY | 2024-10-28 14:53 | XMS_ITS | Encounter Summary ---
Author Organization [facility] Address [address] [place] [address] Care Team Providers Care Political Aide Name Role Phone Bettye Gonzales MD Unavailable + Bonny Cooley MD Primary Care Provider Antony Chakraborty MD Unavailable Mateo Cheema MD Unavailable Ermias Colón MD Unavailable Suzanne Fernández RN Unavailable [phone] Bonny Cooley MD Unavailable [phone] Bonny Cooley MD Unavailable [phone] Pam Hernandez MD Unavailable [phone] Lázaro Horowitz MD Unavailable Jaime Grover MD Unavailable [phone] Toni Sheth MD Unavailable Toni Sheth MD Unavailable Bertram Elizabeth MD Unavailable Bonny Cooley MD Unavailable [phone] Aminata Youssef MD Primary Care Provider Bertram Elizabeth MD Unavailable [phone] Alex Johnson MD Unavailable Bonny Cooley MD Unavailable [phone] Bertram Elizabeth MD Unavailable [phone] Bertram Elizabeth MD Unavailable [phone] Alex Johnson MD Unavailable [phone] Encounter Details Date Type Department Care Team (Late st Contact Info) Description 01/25/2018 My[facility] Medical Advice [address] [address] Lázaro Horowitz MD [address] [address] Social History Tobacco Use Types Packs/Day Years Used Date Smoking Tobacco: Former Cigarettes 2 3 0 04/23/1976 - 12/17/1977 Smokeless Tobacco: Never Alcohol Use Standard Drinks/Week Comments No 0 (1 standard drink = 0.6 oz pur e alcohol) Comments No Sex and Gender Information Value Date Recorded Sex Assigned at Female 08/28/2018 12:23 AM [employer] Legal Sex Female 4:46 AM [employer] Gender Identity Female 08/28/2018 12:23 AM F[employer] Sexual Orientation Straight 10/11/2019 2: 51 PM [employer] documented as of this encounter Plan of Treatment Upcoming Encounters Date Type Department Care Team (Late st Contact Info) Description 04/25/2025 1:30 PM CDT Office Visit [facility] [address] [address] Alex Johnson MD [address] [place] [address] documented as of this encounter Visit Diagnoses Not on filedocumented in this encounter Additional Health Concerns Infection Onset Date Last Indicated Resolved Time COVID-19 06/23/2020 06/23/2020 07/14/2020 11:4 0 PM [employer] Recovered COVID 07/08/2020 07/08/2020 09/21/2020 1 1:39 PM [employer] Assessment Noted Time PHQ-9 Depression Total Score: 12 018 7:15 AM CDT documented as of this encounter Care Teams Political Aide Relationship Specialty Start Date End Date Bonny Cooley MD [address] [place] [address] PCP - General Family Practice 09/30/15 06/02/21 Bonny Cooley MD [address] [id number] PCP - Assigned PCP 10/05/15 10/10/18 Aminata Youssef MD [facility] [address] [place] [address] PCP - General Internal Medicine 06/03/21 Bettye Gonzales MD Internal Medicine 04/10/15 Antony Chakraborty MD [address] [address] INTERNAL MEDICINE - ENDOCRINOLOGY, DIABETES & METABOLISM 11/13/15 Mateo Cheema MD [address] [address] Internal Medicine 08/06/16 Ermias Colón MD 420 [facility] [address] [place] [address] Referring Physician Neurology 09/23/16 Suzanne Fernández, RN [facility] Primary Care - CC 02/28/18 [place] [address] [place] [address] Assigned PCP 10/05/15 07/26/20 Pam Hernandez MD [address] [place] [address] [place] [address] Assigned Behavioral Health Provider 05/30/20 08/01/21 Lázaro Horowitz MD [facility] [address] [place] [address] Assigned Rheumatology Provider 05/30/20 07/19/20 Jaime Grover MD [address] [place] [address] Assigned Gastroenterology Provider 05/30/20 11/14/21 Toni Sheth MD [address] [place] [address] Assigned Pediatric Specialist Provider 05/30/20 09/07/20 Toni Sheth MD [address] [place] [address] Assigned Surgical Provider 05/30/20 04/18/21 Bertram Elizabeth MD [address] [address] Assigned PCP 07/27/20 04/25/21 Bonny Cooley MD [address] [place] [address] Assigned PCP 04/26/21 08/15/21 Bertram Elizabeth MD [address] [address] Assigned PCP 08/16/21 10/24/21 Alex Johnson MD [address] [place] [address] Assigned Rheumatology Provider 10/18/21 04/15/23 Bonny Cooley MD [address] [address] Assigned PCP 10/25/21 04/02/22 Bertram Elizabeth MD [address] [address] Assigned PCP 04/03/22 07/23/22 Bertram Elizabeth MD [address] [address] Assigned PCP 10/02/22 04/29/23 Alex Johnson MD [address] [place] [address] Rheumatology 10/04/24 documented as of this encounter
--- OUTSIDE RECORDS SUMMARY | 2024-10-28 14:53 | XMS_ITS | Encounter Summary ---
Author Organization [facility] Address [address] [place] [address] Care Team Providers Care Pier Hand Name Role Phone Bettye Gonzales MD Unavailable + Bonny Cooley MD Primary Care Provider Antony Chakraborty MD Unavailable Mateo Cheema MD Unavailable Ermias Colón MD Unavailable Bonny Cooley MD Unavailable [phone] Bonny Cooley MD Unavailable [phone] Pam Hernandez MD Unavailable [phone] Lázaro Horowitz MD Unavailable Jaime Grover MD Unavailable Toni Sheth MD Unavailable Toni Sheth MD Unavailable Bertram Elizabeth MD Unavailable Bonny Cooley MD Unavailable [phone] Aminata Youssef MD Primary Care Provider Bertram Elizabeth MD Unavailable Alex Johnson MD Unavailable [phone] Bonny Cooley MD Unavailable Bertram Elizabeth MD Unavailable Bertram Elizabeth MD Unavailable [phone] Alex Johnson MD Unavailable Reason for Visit * Reason Comments Medication Refill Encounter Details Date Type Department Care Team (Late st Contact Info) Description 10/05/[address] [address] Lázaro Horowitz MD [place] [address] [place] [address] Medication Refill Social History Tobacco [...] Sex Assigned at Female 08/28/2018 12:23 AM [employer] L[employer]ISON [employer] STAFF Legal Sex Female 4:46 AM [employer] STAFF Gender Identity Female 08/28/2018 12:23 AM [employer] STAFF Sexual Orientation Straight 10/11/2019 2: 51 PM [employer] STAFF documented as of this encounter Miscellaneous Notes * Telephone Encounter - Deborah Ellison, [facility] - 10/05/2018 7:33 AM CST Refill request [...] 0.90 08/28/2018 No results found for: [employer] SPECIAL STAFF documented in this encounter Plan of Treatment Upcoming Encounters Date Type Department Care Team (Late st Contact Info) Description 04/25/2025 1:30 PM CDT Office Visit [facility] [address] [place] [phone] Alex Johnson MD [address] [place] [address] documented as of this encounter Visit Diagnoses Diagnosis Rheumatoid arthritis of multiple sites without rheumatoid factor (H) Rheumatoid arthritis documented in this encounter Additional Health Concerns Infection Onset Date Last Indicated Resolved Time COVID-19 06/23/2020 06/23/2020 07/14/2020 11:4 0 PM [employer]AFF Recovered COVID 07/08/2020 07/08/2020 09/21/2020 1 1:39 PM [employer]AFF Assessment Noted Time PHQ-9 Depression Total Score: 13 018 7:20 AM [employer] STAFF documented as of this encounter Care Teams Pier Hand Relationship Specialty Start Date End Date Bonny Cooley MD [address] [place] [address] PCP - General Family Practice 09/30/15 06/02/21 Bonny Cooley MD [address] [facility] [address] [place] [address] PCP - Assigned PCP 10/05/15 10/10/18 Aminata Youssef MD [facility] [address] [place] [address] PCP - General Internal Medicine 06/03/21 Bettye Gonzales MD Internal Medicine 04/10/15 Antony Chakraborty MD [address] [place] [address] MD INTERNAL MEDICINE - ENDOCRINOLOGY, DIABETES & METABOLISM 11/13/15 Mateo Cheema MD [address] [address] Internal Medicine 08/06/16 Ermias Colón MD [address] [address] Referring Physician Neurology 09/23/16 Bonny Cooley MD [address] [address] Assigned PCP 10/05/15 07/26/20 Pam Hernandez MD [address] [place] [address] MALLY LYNNE [address] Assigned Behavioral Health Provider 05/30/20 08/01/21 Lázaro Horowitz MD [facility] [address] [place] [address] Assigned Rheumatology Provider 05/30/20 07/19/20 Jaime Grover MD [address] [place] [address] Assigned Gastroenterology Provider 05/30/20 11/14/21 Toni Sheth MD [address] [place] [address] Assigned Pediatric Specialist Provider 05/30/20 09/07/20 Toni Sheth MD [address] [place] [address] Assigned Surgical Provider 05/30/20 04/18/21 Bertram Elizabeth MD [facility] [address] [address] Assigned PCP 07/27/20 04/25/21 Bonny Cooley MD [address] [place] [address] Assigned PCP 04/26/21 08/15/21 Bertram Elizabeth MD [address] [place] [address] Assigned PCP 08/16/21 10/24/21 Alex Johnson MD [address] [place] [address] Assigned Rheumatology Provider 10/18/21 04/15/23 Bonny Cooley MD [facility] [address] [address] Assigned PCP 10/25/21 04/02/22 Bertram Elizabeth MD [address] [address] Assigned PCP 04/03/22 07/23/22 Bertram Elizabeth MD [address] [address] Assigned PCP 10/02/22 04/29/23 Alex Johnson MD [address] [place] [address] MD Guzman 10/04/24 documented as of this encounter
[2024-10-28 15:09] LABS: Lactate* 1.4 mmol/L (0.5-1.9)
[2024-10-28 15:26] LABS: Basophils Absolute Auto 0.04 K/uL (0.00-0.30); Basophils Percent Auto 0.4 % (0.0-3.0); Eosinophils Absolute Auto 0.37 K/uL (0.00-0.50); Eosinophils Percent Auto 3.7 % (0.0-7.0); Hematocrit 42.1 % (33.0-51.0); Hemoglobin* 13.5 gm/dL (12.0-16.0); Immature Granulocytes Abs Auto 0.03 K/uL (0.00-0.30); Immature Granulocytes Pct Auto 0.3 %; Lymphocytes Percent Auto 15.2 % (20-44); Mean Corpuscular HGB Conc 32 gm/dL (32-36); Mean Corpuscular Hemoglobin 32 pg (26-34); Mean Corpuscular Volume 100 fL (80-100); Monocytes Percent Auto 8.1 % (0.0-11.0); Neutrophils Percent Auto 72.3 % (42.0-72.0); Platelet Count* 240 K/uL (140-440); RDW Coefficient of Variation % 14.8 % (11.5-15.5); Red Blood Count 4.21 m/uL (4.00-5.20); White Blood Count* 10.03 K/uL (4.50-11.00)
[2024-10-28 15:27] LABS: Slide Review Reflex No
[2024-10-28 15:30] LABS: Chloride* 114 mmol/L (96-114); Potassium* 3.7 mmol/L (3.6-5.1); Sodium* 145 mmol/L (135-149)
[2024-10-28 15:33] LABS: Anion Gap 6 mEq/L (7-15); Blood Urea Nitrogen* 22 mg/dL (7-30); Carbon Dioxide* 25 mmol/L (20-32); Creatinine* 0.7 mg/dL (0.5-1.5); Est. Creatinine Clearance* 40.38; Estimated Glomerular Filt Rate 87 ml/min
[2024-10-28 15:34] LABS: Calcium* 9.6 mg/dL (8.4-10.6); Glucose* 104 mg/dL (60-115)
[2024-10-28 15:40] LABS: D Dimer Quantitative* 7.75 ug/ml (0.00-0.50)
[2024-10-28 15:45] LABS: NT Pro B Type NatriureticPept* 496 pg/mL
[2024-10-28 15:46] LABS: Troponin I* 0.02 ng/mL (0.01-0.04)
[2024-10-28 15:50] LABS: PCR FLU A Negative PCR FLU A (Negative); PCR FLU B Negative PCR FLU B (Negative); PCR RSV Negative PCR RSV (Negative); SARS PCR* Negative SARS-CoV-2 (Negative)
--- NOTE | 2024-10-28 16:17 | CRLHL7_ITS ---
For Patients: As a result of the Century Cures Act, medical imaging exams and procedure reports are released immediately into your electronic medical record. You may view this report before your referring provider. If you have questions, please contact your health care provider. INDICATION: Chest pain and dyspnea. TECHNIQUE: Axial intravenously infused CT cuts were performed from the thoracic inlet to the upper abdomen during the peak phase of pulmonary arterial contrast opacification. 95 mL of Isovue-370 has been injected intravenously. COMPARISON: Chest radiographs 10/28/2024. FINDINGS: There is a large embolus within the right main pulmonary artery that extends into the right upper, right middle and lower lobe pulmonary arteries. There are no left side emboli are identified. The right ventricle appears somewhat dilated suggestive of right heart strain. There is a small pericardial effusion. There is a small left pleural effusion. There is nonspecific patchy ground-glass opacity within both lungs. There are no enlarged hilar, mediastinal or axillary lymph nodes. Within the left side of the upper abdomen, there is a 3.0 cm cystic lesion. The visualized liver, spleen and adrenal glands appear normal. There are no lytic or sclerotic skeletal lesions. IMPRESSION: 1. Large embolus within the right main pulmonary artery extending into the right upper, right middle and lower lobe pulmonary arteries. 2. The right ventricle appears somewhat dilated suggestive right heart strain. 3. Small pericardial effusion. 4. Small left pleural effusion. 5. Nonspecific patchy ground-glass opacities within both lungs. 6. There is a 3.0 cm cystic within the left side of the abdomen not fully visualized on this scan. An elective a CT of the abdomen and pelvis is recommended to assess the anatomic origin of this lesion. 7. Critical finding of PE called to Marci SAAB on behalf of Dr. Johnson at 4:55 pm on 10/28/2024. Please note that all CT scans at this facility use dose modulation, iterative reconstruction, and/or weight-based dosing when appropriate to reduce radiation dose to as low as reasonably achievable. Dictated by Mp Whitaker MD @ 10/28/2024 4:56:15 PM (Electronically Signed)
[2024-10-28 17:16] LABS: INR 0.97 (0.91-1.10); Prothrombin Time 13.6 Seconds
[2024-10-28 17:17] LABS: Partial Thromboplastin Time* 30 Seconds (23-33)
[2024-10-28] MEDS: APIXABAN 5 MG TABLET 10 MG PO (17:29)
--- NOTE | 2024-10-28 18:54 | PC.NURSE ---
End of Shift Note: Patient arrived to the floor around 1730 from the ER. She is accompanied by her daughter Madison. Patient came to the ER today d/t SOB and imaging shows PE. Upon arrival she is able to stand and take a few steps. Normally uses a walker and this has been provided to her. Does have a history of falls per daughter. She was able to stand and get a weight. Tele has been placed and she is currently sitting in the chair and having dinner. Will be giving report to the next shift shortly.
--- NOTE | 2024-10-28 19:55 | PM.IMHP1 ---
Assessment and Plan Assessment and plan (1) Pulmonary embolism: Problem comment: CT suggest right heart strain. Treated with apixaban Status: Acute (2) Multifactorial gait disorder: Status: Acute (3) Cognitive impairment: Problem comment: She underwent an occupational therapy assessment fall 2020, MoCA score 24/30 Status: Acute (4) Milk allergy: Problem comment: Patient reports an allergy to milk which causes mental clouding. We discussed that this may not be a true allergy. She is concerned because her blood pressure medicine contains milk. Recommend she continue it and review with primary care Status: Acute (5) Fatigue: Problem comment: Chronic Status: Acute (6) Rheumatoid arthritis: Problem comment: on methotrexate, has licensed plumber in [place]. Rheumatoid factor negative. She says licensed plumber is questioning the diagnosis Status: Acute (7) Gait difficulty: Status: Acute (8) Frailty syndrome in geriatric patient: Status: Acute (9) Lymphedema: Problem comment: Chronic. Not currently using compression. Does have Velcro style compression wraps at home Status: Acute (10) Back pain: Problem comment: I suspect her back pain which is currently bothering her on the left side of her chest is due to musculoskeletal causes, kyphosis, not PE Status: Acute (11) Abdominal mass: Problem comment: 3 cm Cystic mass in the left abdomen noted incidentally on CT of the chest on 10/28/2024. Recommend non emergent CT abdomen and pelvis for further evaluation. This can be done as an outpatient when she has recovered from her current pulmonary embolism. Status: Acute Plan 79-year-old female admitted to the hospital with a 1 day history of acute dyspnea likely due to pulmonary embolism in the right pulmonary artery. CT suggest right heart strain. She is hypoxic and tachycardic with any activity. Total Time Spent Total Time Spent: Total time spent today is 90 minutes in coordination of care, discussion with patient and her daughter and other providers about diagnosis, treatment and plan of care for pulmonary embolism and other medical problems. Hospitalist- H&P: RICHARD History of Present Illness Date Seen: 10/28/24 Chief complaint: SOB/Back pain Narrative: HPI: Heidi Miller is a 79 year old female 79-year-old female with a past medical history including hypertension (amlodipine/benazepril, atenolol), rheumatoid arthritis (methotrexate), elevated BMI, sleep apnea, frailty, presents with a 1 day history of increasing dyspnea especially with activity. She has also noted some left mid back pain for few weeks. Per medical record she had a visit for low back pain in September 2023. Per that note she had been having back spasms for week. Per note she was very sedentary, typical only walks 15 ft. She was referred physical therapy. She also has a visit in August 2024 with about a year long history pain in her left lower breast. 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 Was apparently low likelihood to represent cardiac etiology at that time She has no known history of coronary disease or CHF. She does have a history of hypertension, and her daughter notes that it is not well controlled. She also has rheumatoid arthritis and is generally very sedentary. In the emergency department she was found to have a fairly large pulmonary embolism in the right main pulmonary artery. No previous history of thrombophilia. No family history of thrombophilia. No personal history of cancer. She does have rheumatoid arthritis and obesity. No recent immobilization. No lower extremity injury except she dropped something on her right foot a week ago. She has felt chilled but has not had an objective fever. She has been generally fatigued. No known contagious exposures. She has chronic lower extremity edema which is not changed from baseline. Not worse or better. Review of Systems Narrative: She reports poor exercise tolerance chronically, worse in the last day. She reports slight anterior chest pain in the last day. It does not radiate. She is still having left mid back pain which has been present for weeks. She is not having new swelling or pain in her legs. She has been eating normally. She has a tendency towards constipation. She takes MiraLax for this. [facility] Medical History (Updated 10/28/24 @ 20:23 by Isaias Victoria MD) Abdominal mass ?R19.00 - Intra-abdominal and pelvic swelling, mass and lump, unspecified site (ICD-10) Back pain ?M54.9 - Dorsalgia, unspecified (ICD-10) Lymphedema ?I89.0 - Lymphedema, not elsewhere classified (ICD-10) Milk allergy ?Z91.011 - Allergy to milk products (ICD-10) Urinary incontinence (05/31/22) ?R32 - Unspecified urinary incontinence (ICD-10) Rheumatoid arthritis (12/15/18) ?M06.9 - Rheumatoid arthritis, unspecified (ICD-10) YUE (obstructive sleep apnea) (12/31/16) ?G47.33 - Obstructive sleep apnea (adult) (pediatric) (ICD-10) Obesity with body mass index greater than 30 (05/31/22) ?E66.9 - Obesity, unspecified (ICD-10) Frailty syndrome in geriatric patient (05/31/22) ?R54 - Age-related physical debility (ICD-10) Essential hypertension (12/15/18) ?I10 - Essential (primary) hypertension (ICD-10) Unsteadiness on feet (12/15/18) ?R26.81 - Unsteadiness on feet (ICD-10) Rheumatoid arthritis of multiple sites without rheumatoid factor (04/12/17) ?M06.09 - Rheumatoid arthritis without rheumatoid factor, multiple sites (ICD-10) Osteoporosis (09/25/13) ?M81.0 - Age-related osteoporosis without current pathological fracture (ICD-10) Osteoarthritis of left knee (03/29/13) ?M17.12 - Unilateral primary osteoarthritis, left knee (ICD-10) Knee pain, left (03/29/13) ?M25.562 - Pain in left knee (ICD-10) 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) ?G60.3 - Idiopathic progressive neuropathy (ICD-10) Hyperparathyroidism ?E21.3 - Hyperparathyroidism, unspecified (ICD-10) Hyperlipidemia with target LDL less than 130 ?E78.5 - Hyperlipidemia, unspecified (ICD-10) Hypercalcemia (01/19/12) ?E83.52 - Hypercalcemia (ICD-10) History of multiple sclerosis (05/08/14) ?G35 - Multiple sclerosis (ICD-10) Gastro-esophageal reflux disease without esophagitis (12/15/18) ?K21.9 - Gastro-esophageal reflux disease without esophagitis (ICD-10) Gait difficulty (10/24/09) ?R26.9 - Unspecified abnormalities of gait and mobility (ICD-10) Fatigue (05/08/14) ?R53.83 - Other fatigue (ICD-10) Dermatitis (05/07/15) ?L30.9 - Dermatitis, unspecified (ICD-10) Depression, major, recurrent ?F33.9 - Major depressive disorder, recurrent, unspecified (ICD-10) Anxiety (01/31/20) ?F41.9 - Anxiety disorder, unspecified (ICD-10) Age-related osteoporosis without current pathological fracture (12/15/18) ?M81.0 - Age-related osteoporosis without current pathological fracture (ICD-10) Surgical History (Updated 10/28/24 @ 20:11 by Isaias Victoria MD) History of parathyroidectomy (05/31/22) ?Z98.890 - Other specified postprocedural states (ICD-10) ?Z90.89 - Acquired absence of other organs (ICD-10) History of cholecystectomy (05/31/22) ?Z90.49 - Acquired absence of other specified parts of digestive tract (ICD-10) History of section (05/31/22) ?Z98.891 - History of uterine scar from previous surgery (ICD-10) Presence of right artificial knee joint (12/15/18) ?Z96.651 - Presence of right artificial knee joint (ICD-10) History of total knee replacement (2017) ?Z96.659 - Presence of unspecified artificial knee joint (ICD-10) History of parathyroidectomy (2011) ?E89.2 - Postprocedural hypoparathyroidism (ICD-10) History of cholecystectomy ?Z90.49 - Acquired absence of other specified parts of digestive tract (ICD-10) History of section ?Z98.891 - History of uterine scar from previous surgery (ICD-10) Family History Father Brain cancer Mother Thyroid disease High blood pressure Social History (Updated 10/28/24 @ 20:12 by Isaias Victoria MD) Narrative: She lives in [place] with her daughter. Another daughter, Madison, lives next door. 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 Code status is full. Minimal smoking as a young person. She does not drink alcohol. She has a ramp to get into her home. She walks with a walker. Very sedentary What is your current living situation?: I presently have a place to live Problems where you live: smoke detectors missing or not working and carbon monoxide detectors missing or not working Problems where you live details: see above In the past 12 months, utilities in danger of being shut off: no In past 12 months, lack of transportation kept you from medical appts, meetings, work, or getting things needed for daily living: no In the past 12 mos, have been you worried that your food would run out before you had money to buy more?: never true In the past 12 mos, the food you bought just didn't last and you didn't have money to buy more?: never true Highest level of school completed/degree received: Bachelor's degree Smoking Status: Former smoker How often do you have a drink containing alcohol: never AUDIT-C Alcohol total score: 0 Non-prescribed substance use: denies use Caffeine: Yes (couple of cups a day) How often does anyone, including family, friends and others, physically hurt you: never How often does anyone, including family, friends and others, insult or talk down to you: sometimes How often does anyone, including family, friends and others, threaten you with harm: never How often does anyone, including family, friends and others, scream or curse at you: sometimes service: No Health Related Social Needs: Inadequate housing (Z59.1) and Other personal risk factors, not elsewhere classified (Z91.89) Meds Home Medications and Allergies Home Medications ?Medication ?Instructions ?Recorded ?Confirmed ?Type cholecalciferol (vitamin D3) 25 1,000 unit PO DAILY 06/08/22 08/23/24 History mcg (1,000 unit) tablet magnesium oxide 400 mg (241.3 mg 400 mg PO DAILY 06/08/22 08/23/24 History magnesium) tablet methotrexate sodium 2.5 mg tablet 2.5 mg PO .Every 7 Days 06/08/22 08/23/24 History cranberry 2 tab PO DAILY 09/20/22 08/23/24 History acetaminophen 500 mg tablet 250 mg PO Q6H PRN 11/01/22 08/23/24 History (Tylenol Extra Strength) ibuprofen 200 mg tablet 600 mg PO Q6H PRN 11/01/22 08/23/24 History clobetasol 0.05 % topical ointment 1 applic topical QDAY PRN 03/28/23 08/23/24 History folic acid 1 mg tablet 4 mg PO DAILY 08/23/24 08/23/24 History Allergies Allergy/AdvReac Type Severity Reaction Status Date / Time milk Allergy Intermediate Verified 10/28/24 16:32 Exam Narrative: Exam Narrative: She is alert and appears in no distress. On supplemental oxygen. She gives her own history with fairly good detail. Head is without trauma. Eyes normal. Oropharynx normal. Neck is supple without mass or adenopathy. Respirations are clear to auscultation. No wheezing rales rhonchi. Cardiovascular: S1, S2, regular rate and rhythm. No murmur gallop or rub. Abdomen: Bowel sounds active. Abdomen is soft without tenderness or mass. External genitalia normal. Extremities with 3+ edema bilaterally. Slightly more on the right than the left. She reports this is normal for her. Small bruise on the dorsum of her right foot. Mild tenderness in both calves to palpation. Intact pedal pulses. Const: Vital Signs, click to edit/add: Vital Signs - 24 hr 10/28/24 14:00 10/28/24 14:43 10/28/24 14:44 Temperature 98.3 F Pulse Rate 79 78 Pulse Rate [Apical ] 87 Pulse Rate [Right Radial] Respiratory Rate 28 H 15 26 H Blood Pressure 155/83 H Blood Pressure [Ri ght Arm] Blood Pressure [Ri ght Upper Arm] 183/83 H Pulse Oximetry 93 92 92 Oxygen Delivery Me thod Room Air Oxygen Flow Rate 10/28/24 14:45 10/28/24 15:00 10/28/24 15:02 Temperature Pulse Rate 78 78 78 Pulse Rate [Apical ] Pulse Rate [Right Radial] Respiratory Rate 20 22 22 Blood Pressure 152/73 H Blood Pressure [Ri ght Arm] Blood Pressure [Ri ght Upper Arm] Pulse Oximetry 92 92 93 Oxygen Delivery Me thod Oxygen Flow Rate 10/28/24 15:03 10/28/24 15:16 10/28/24 15:22 Temperature Pulse Rate 81 77 78 Pulse Rate [Apical ] Pulse Rate [Right Radial] Respiratory Rate 27 H 29 H Blood Pressure 170/82 H Blood Pressure [Ri ght Arm] Blood Pressure [Ri ght Upper Arm] Pulse Oximetry 94 91 93 Oxygen Delivery Me thod Oxygen Flow Rate 10/28/24 15:30 10/28/24 15:45 10/28/24 16:00 Temperature Pulse Rate 79 76 76 Pulse Rate [Apical ] Pulse Rate [Right Radial] Respiratory Rate 22 24 23 Blood Pressure Blood Pressure [Ri ght Arm] Blood Pressure [Ri ght Upper Arm] Pulse Oximetry 93 92 90 Oxygen Delivery Me thod Oxygen Flow Rate 10/28/24 16:15 10/28/24 16:43 10/28/24 16:45 Temperature Pulse Rate 75 83 82 Pulse Rate [Apical ] Pulse Rate [Right Radial] Respiratory Rate 22 30 H Blood Pressure Blood Pressure [Ri ght Arm] Blood Pressure [Ri ght Upper Arm] Pulse Oximetry 90 91 93 Oxygen Delivery Me thod Oxygen Flow Rate 10/28/24 17:56 10/28/24 18:26 Temperature 98.2 F Pulse Rate Pulse Rate [Apical ] Pulse Rate [Right Radial] 78 Respiratory Rate 20 Blood Pressure Blood Pressure [Ri ght Arm] 151/88 H Blood Pressure [Ri ght Upper Arm] Pulse Oximetry 83 L 94 Oxygen Delivery Me thod Room Air Nasal Cannula Oxygen Flow Rate 2 Documenting provider has reviewed patient's vital signs: yes Hospitalist - H&P: Result Labs Labs: Short CBC 10/28/24 Range/Units 15:02 WBC 10.03 (4.50-11.00) K/uL Hgb 13.5 (12.0-16.0) gm/dL Hct 42.1 (33.0-51.0) % Plt Count 240 (140-440) K/uL BMP 10/28/24 15:02 Sodium 145 Potassium 3.7 Chloride 114 Carbon Dioxide 25 BUN 22 Creatinine 0.7 Glucose 104 Calcium 9.6 Cardiac Enzymes 10/28/24 Range/Units 15:02 Troponin I 0.02 (0.01-0.04) ng/mL
[2024-10-28] MEDS: AMLODIPINE 10 MG TABLET PO (21:09)
[2024-10-28] MEDS: SODIUM CHLORIDE 0.9 % (FLUSH) 10 ML SYRINGE 5 ML IVF (21:09)
[2024-10-28] MEDS: BENAZEPRIL 10 MG TABLET 20 MG PO (21:09)
[2024-10-29] VITALS: BP 166/82; PULSE 80; RESP 18; TEMP 36.8; O2SAT 90
[2024-10-29 03:00] VITALS: PULSE 80; RESP 20; O2SAT 91
[2024-10-29 06:20] LABS: Basophils Percent Auto 0.5 % (0.0-3.0); Hematocrit 37.4 % (33.0-51.0); Hemoglobin* 12.1 gm/dL (12.0-16.0); Immature Granulocytes Pct Auto 1.1 %; Lymphocytes Percent Auto 18.3 % (20-44); Mean Corpuscular HGB Conc 32 gm/dL (32-36); Mean Corpuscular Hemoglobin 32 pg (26-34); Mean Corpuscular Volume 100 fL (80-100); Monocytes Percent Auto 7.7 % (0.0-11.0); Neutrophils Percent Auto 68.4 % (42.0-72.0); Platelet Count* 241 K/uL (140-440); Red Blood Count 3.76 m/uL (4.00-5.20); White Blood Count* 12.28 K/uL (4.50-11.00)
--- NOTE | 2024-10-29 06:21 | PC.NURSE ---
19-07: pleasant and cooperative. SBA with walker, increased SOB with ambulation to BR. Pt remains on 2L O2 via NC, sats maintaining 92-94% when awake, 88-92% when asleep (pt mouth breather). LS CTA. Pitting edema to BLE, hx lymphedema. Tele-NSR. DTR in visiting before HS.
[2024-10-29 06:25] LABS: Slide Review Reflex No
[2024-10-29 06:35] LABS: Chloride* 113 mmol/L (96-114); Potassium* 3.4 mmol/L (3.6-5.1); Sodium* 142 mmol/L (135-149)
[2024-10-29 06:38] LABS: Anion Gap 8 mEq/L (7-15); Blood Urea Nitrogen* 21 mg/dL (7-30); Calcium* 8.8 mg/dL (8.4-10.6); Carbon Dioxide* 21 mmol/L (20-32); Creatinine* 0.7 mg/dL (0.5-1.5); Est. Creatinine Clearance* 40.38; Estimated Glomerular Filt Rate 87 ml/min; Glucose* 96 mg/dL (60-115)
[2024-10-29 08:00] VITALS: PULSE 78; RESP 20; O2SAT 92
--- NOTE | 2024-10-29 08:00 | CRLHL7_ITS ---
For Patients: As a result of the Century Cures Act, medical imaging exams and procedure reports are released immediately into your electronic medical record. You may view this report before your referring provider. If you have questions, please contact your health care provider. Indication: Pulmonary embolus diagnosed by CT October 28, 2024. Assess location of clot and clot burden within the legs. Technique: Grayscale, grayscale compression, color Doppler, spectral Doppler and augmentation technique was utilized for evaluating the bilateral lower extremity deep venous system. The following veins were studied bilaterally: Common femoral vein, greater saphenous vein, deep femoral vein, femoral vein, popliteal vein, peroneal vein and posterior tibial veins. Comparison: None Findings: There is acute, largely occlusive clot identified in the bilateral lower extremity deep venous system. This involves the proximal, mid and distal femoral veins and the posterior tibial veins bilaterally. The other visualized venous structures show no evident abnormality. I discussed the above findings with Dr. Radha Wetzel at 9 a.m. on October 29, 2021 5 Impression: Extensive bilateral lower extremity deep venous thrombosis as described. Dictated by Humberto Cartwright MD @ 10/29/2024 9:02:37 AM (Electronically Signed)
[2024-10-29 08:30] VITALS: BP 151/74; PULSE 78; RESP 20; TEMP 36.7; O2SAT 92
--- NOTE | 2024-10-29 08:54 | PM.IMPN1 ---
Assessment and Plan Assessment and plan (1) Pulmonary embolism: Problem comment: - CT of the chest PE protocol on 10/28/24 demonstrates the followin. Large embolus within the right main pulmonary artery extending into the right upper, right middle and lower lobe pulmonary arteries. 2. The right ventricle appears somewhat dilated suggestive right heart strain. - trop-i stable at 0.01-0.02. Serial EKG demonstrating normal sinus rhythm with right bundle branch block and left anterior fascicular block pattern. - Treated with apixaban - bilateral lower extremity ultrasound obtained 10/29/24 demonstrates the following: There is acute, largely occlusive clot identified in the bilateral lower extremity deep venous system. This involves the proximal, mid and distal femoral veins and the posterior tibial veins bilaterally. The other visualized venous structures show no evident abnormality. - I have a call in to [facility] and I am awaiting call back to discuss possible catheter directed thrombolytic therapy. Status: Acute (2) Multifactorial gait disorder: Problem comment: - PT and OT consult Status: Acute (3) Cognitive impairment: Problem comment: - She underwent an occupational therapy assessment fall 2020, MoCA score 24/30 Status: Acute (4) Milk allergy: Problem comment: Patient reports an allergy to milk which causes mental clouding. We discussed that this may not be a true allergy. She is concerned because her blood pressure medicine contains milk. Recommend she continue it and review with primary care Status: Acute (5) Fatigue: Problem comment: Chronic Status: Acute (6) Rheumatoid arthritis: Problem comment: - on methotrexate, has linoleum layer in [place]. Rheumatoid factor negative. She says linoleum layer is questioning the diagnosis Status: Acute (7) Gait difficulty: Status: Acute (8) Frailty syndrome in geriatric patient: Status: Acute (9) Lymphedema: Problem comment: Chronic. Not currently using compression. Does have Velcro style compression wraps at home Status: Acute (10) Back pain: Problem comment: I suspect her back pain which is currently bothering her on the left side of her chest is due to musculoskeletal causes, kyphosis, not PE Status: Acute (11) Abdominal mass: Problem comment: - 3 cm Cystic mass in the left abdomen noted incidentally on CT of the chest on 10/28/2024. - Recommend non emergent CT abdomen and pelvis for further evaluation. This can be done as an outpatient when she has recovered from her current pulmonary embolism. Status: Acute (12) Acute bilateral deep vein thrombosis (DVT) of femoral veins: Problem comment: - U/S 10/29/24: There is acute, largely occlusive clot identified in the bilateral lower extremity deep venous system. This involves the proximal, mid and distal femoral veins and the posterior tibial veins bilaterally. The other visualized venous structures show no evident abnormality. - started apixaban 10/28/24 Status: Acute (13) Deep vein thrombosis (DVT) of posterior tibial vein: Problem comment: - U/S 10/29/24: There is acute, largely occlusive clot identified in the bilateral lower extremity deep venous system. This involves the proximal, mid and distal femoral veins and the posterior tibial veins bilaterally. The other visualized venous structures show no evident abnormality. - started apixaban 10/28/24 Status: Acute Plan 1. I reviewed my impression, thoughts, and recommendations with the patient. 2. Answered her questions are satisfaction. 3. Patient agreeable with above stated plans and recommendations. Total Time Spent Total Time Spent: 50 minutes Subjective Date Seen: 10/29/24 Interval history: Admission history of present illness (10/28/2024): 79 year old female 79-year-old female with a past medical history including hypertension (amlodipine/benazepril, atenolol), rheumatoid arthritis (methotrexate), elevated BMI, sleep apnea, frailty, presents with a 1 day history of increasing dyspnea especially with activity. She has also noted some left mid back pain for few weeks. Per medical record she had a visit for low back pain in September 2023. Per that note she had been having back spasms for week. Per note she was very sedentary, typical only walks 15 ft. She was referred physical therapy. She also has a visit in August 2024 with about a year long history pain in her left lower breast. 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 Was apparently low likelihood to represent cardiac etiology at that time She has no known history of coronary disease or CHF. She does have a history of hypertension, and her daughter notes that it is not well controlled. She also has rheumatoid arthritis and is generally very sedentary. In the emergency department she was found to have a fairly large pulmonary embolism in the right main pulmonary artery. No previous history of thrombophilia. No family history of thrombophilia. No personal history of cancer. She does have rheumatoid arthritis and obesity. No recent immobilization. No lower extremity injury except she dropped something on her right foot a week ago. She has felt chilled but has not had an objective fever. She has been generally fatigued. No known contagious exposures. She has chronic lower extremity edema which is not changed from baseline. Not worse or better. Hospital day 2, 10/29/2024: New onset dyspnea improved with oxygen supplementation. Still has dyspnea with exertion above and beyond her baseline level of dyspnea with exertion. Describes new sudden onset dyspnea yesterday, worse with exertion. Denies chest heaviness, pressure, tightness, or pain. Denies syncope or near-syncope. Denies nausea or vomiting. Denies palpitations. Denies lower extremity pain. Does not have any more or less lower extremity edema than usual. No erythema, warmth, tenderness of lower extremities. Exam Narrative: Exam Narrative: Examiner in her hospital room. Appears comfortable and in no acute distress. Has oxygen supplementation via nasal cannula. Friendly, articulate, cooperative. Alert and oriented x4. No JVD or hepatojugular reflux while sitting upright. Lungs fairly clear to auscultation without wheezing, rhonchi, rales. Decreased breath sounds in bases. Chest wall excursions are full. No CVA tenderness to thumping. Heart tones with regular rhythm, normal S1-S2, without gallop or rub. Soft systolic murmur. PMI not laterally displaced. Abdomen with active bowel sounds, soft, nontender. Bilateral knee trace pretibial edema. No focal motor neurologic deficits. Const: Vital Signs, click to edit/add: Vital Signs - 24 hr 10/28/24 14:00 10/28/24 14:43 10/28/24 14:44 Temperature 98.3 F Pulse Rate 79 78 Pulse Rate [Apical ] 87 Pulse Rate [Pulse Oximeter] Pulse Rate [Right Radial] Respiratory Rate 28 H 15 26 H Blood Pressure 155/83 H Blood Pressure [Ri ght Arm] Blood Pressure [Ri ght FA] Blood Pressure [Ri ght Upper Arm] 183/83 H Pulse Oximetry 93 92 92 Oxygen Delivery Me thod Room Air Oxygen Flow Rate 10/28/24 14:45 10/28/24 15:00 10/28/24 15:02 Temperature Pulse Rate 78 78 78 Pulse Rate [Apical ] Pulse Rate [Pulse Oximeter] Pulse Rate [Right Radial] Respiratory Rate 20 22 22 Blood Pressure 152/73 H Blood Pressure [Ri ght Arm] Blood Pressure [Ri ght FA] Blood Pressure [Ri ght Upper Arm] Pulse Oximetry 92 92 93 Oxygen Delivery Me thod Oxygen Flow Rate 10/28/24 15:03 10/28/24 15:16 10/28/24 15:22 Temperature Pulse Rate 81 77 78 Pulse Rate [Apical ] Pulse Rate [Pulse Oximeter] Pulse Rate [Right Radial] Respiratory Rate 27 H 29 H Blood Pressure 170/82 H Blood Pressure [Ri ght Arm] Blood Pressure [Ri ght FA] Blood Pressure [Ri ght Upper Arm] Pulse Oximetry 94 91 93 Oxygen Delivery Me thod Oxygen Flow Rate 10/28/24 15:30 10/28/24 15:45 10/28/24 16:00 Temperature Pulse Rate 79 76 76 Pulse Rate [Apical ] Pulse Rate [Pulse Oximeter] Pulse Rate [Right Radial] Respiratory Rate 22 24 23 Blood Pressure Blood Pressure [Ri ght Arm] Blood Pressure [Ri ght FA] Blood Pressure [Ri ght Upper Arm] Pulse Oximetry 93 92 90 Oxygen Delivery Me thod Oxygen Flow Rate 10/28/24 16:15 10/28/24 16:43 10/28/24 16:45 Temperature Pulse Rate 75 83 82 Pulse Rate [Apical ] Pulse Rate [Pulse Oximeter] Pulse Rate [Right Radial] Respiratory Rate 22 30 H Blood Pressure Blood Pressure [Ri ght Arm] Blood Pressure [Ri ght FA] Blood Pressure [Ri ght Upper Arm] Pulse Oximetry 90 91 93 Oxygen Delivery Me thod Oxygen Flow Rate 10/28/24 17:56 10/28/24 18:26 10/28/24 19:00 Temperature 98.2 F Pulse Rate Pulse Rate [Apical ] Pulse Rate [Pulse Oximeter] Pulse Rate [Right Radial] 78 Respiratory Rate 20 16 Blood Pressure Blood Pressure [Ri ght Arm] 151/88 H Blood Pressure [Ri ght FA] Blood Pressure [Ri ght Upper Arm] Pulse Oximetry 83 L 94 93 Oxygen Delivery Me thod Room Air Nasal Cannula Nasal Cannula Oxygen Flow Rate 2 2 10/28/24 19:30 10/28/24 20:07 10/28/24 23:00 Temperature 97.5 F L Pulse Rate 73 Pulse Rate [Apical ] Pulse Rate [Pulse Oximeter] Pulse Rate [Right Radial] 74 Respiratory Rate 16 16 Blood Pressure Blood Pressure [Ri ght Arm] 170/76 H Blood Pressure [Ri ght FA] Blood Pressure [Ri ght Upper Arm] Pulse Oximetry 93 Oxygen Delivery Me thod Nasal Cannula Oxygen Flow Rate 2 10/28/24 23:00 10/29/24 00:00 10/29/24 03:00 Temperature 98.3 F Pulse Rate Pulse Rate [Apical ] Pulse Rate [Pulse Oximeter] 80 80 Pulse Rate [Right Radial] Respiratory Rate 16 18 20 Blood Pressure Blood Pressure [Ri ght Arm] Blood Pressure [Ri ght FA] 166/82 H Blood Pressure [Ri ght Upper Arm] Pulse Oximetry 92 90 91 Oxygen Delivery Me thod Nasal Cannula Nasal Cannula Nasal Cannula Oxygen Flow Rate 2 2 2 10/29/24 08:00 10/29/24 08:00 10/29/24 08:30 Temperature 98.1 F Pulse Rate Pulse Rate [Apical ] Pulse Rate [Pulse Oximeter] 78 78 Pulse Rate [Right Radial] Respiratory Rate 20 20 20 Blood Pressure Blood Pressure [Ri ght Arm] Blood Pressure [Ri ght FA] 151/74 H Blood Pressure [Ri ght Upper Arm] Pulse Oximetry 92 92 Oxygen Delivery Me thod Nasal Cannula Nasal Cannula Oxygen Flow Rate 2.5 2.5 Labs Labs: Laboratory Results - last 24 hr 10/28/24 10/28/24 10/29/24 14:43 15:02 06:09 WBC 10.03 12.28 H RBC 4.21 3.76 L Hgb 13.5 12.1 Hct 42.1 37.4 MCV 100 100 MCH 32 32 MCHC 32 32 RDW Coeff of Mike 14.8 15.0 Plt Count 240 241 Neut % (Auto) 72.3 H 68.4 Lymph % (Auto) 15.2 L 18.3 L [place] % (Auto) 8.1 7.7 Eos % (Auto) 3.7 4.0 Baso % (Auto) 0.4 0.5 Neut # (Auto) 7.30 H 8.40 H Lymph # (Auto) 1.50 2.20 [place] # (Auto) 0.80 0.90 Eos # (Auto) 0.37 0.50 Baso # (Auto) 0.04 0.10 Abs Immat Gran (auto) 0.03 0.10 Imm/Tot Granulo (auto) 0.3 1.1 INR 0.97 APTT 30 D-Dimer Quant (PE/DVT) 7.75 H Sodium 145 142 Potassium 3.7 3.4 L Chloride 114 113 Carbon Dioxide 25 21 Anion Gap 6 L 8 BUN 22 21 Creatinine 0.7 0.7 Estimated Creat Clear 40.38 40.38 Estimated GFR 87 87 Glucose 104 96 Lactate 1.4 Calcium 9.6 8.8 Troponin I 0.02 NT-Pro-B Natriuret Pep 496 SARS-CoV-2 (PCR) Negative SARS-CoV-2 Influenza Type A (PCR) Negative PCR FLU A Influenza Type B (PCR) Negative PCR FLU B RSV (PCR) Negative PCR RSV Lab Acknowledgement 10/29/24 07:32 WBC RBC Hgb Hct MCV MCH MCHC RDW Coeff of Mike Plt Count Neut % (Auto) Lymph % (Auto) [place] % (Auto) Eos % (Auto) Baso % (Auto) Neut # (Auto) Lymph # (Auto) [place] # (Auto) Eos # (Auto) Baso # (Auto) Abs Immat Gran (auto) Imm/Tot Granulo (auto) INR APTT D-Dimer Quant (PE/DVT) Sodium Potassium Chloride Carbon Dioxide Anion Gap BUN Creatinine Estimated Creat Clear Estimated GFR Glucose Lactate Calcium Troponin I NT-Pro-B Natriuret Pep SARS-CoV-2 (PCR) Influenza Type A (PCR) Influenza Type B (PCR) RSV (PCR) Lab Acknowledgement Test Added Imaging CT scan - chest: Attestation: I have reviewed the pertinent imaging results. Radiologist's impression: IMPRESSION: 1. Large embolus within the right main pulmonary artery extending into the right upper, right middle and lower lobe pulmonary arteries. 2. The right ventricle appears somewhat dilated suggestive right heart strain. 3. Small pericardial effusion. 4. Small left pleural effusion. 5. Nonspecific patchy ground-glass opacities within both lungs. 6. There is a 3.0 cm cystic within the left side of the abdomen not fully visualized on this scan. An elective a CT of the abdomen and pelvis is recommended to assess the anatomic origin of this lesion. Venous US: Radiologist's impression: I spoke with our consulting radiologist who informs me that the patient has but extensive bilateral calf and thigh thrombus. Findings: There is acute, largely occlusive clot identified in the bilateral lower extremity deep venous system. This involves the proximal, mid and distal femoral veins and the posterior tibial veins bilaterally. The other visualized venous structures show no evident abnormality. Impression: Extensive bilateral lower extremity deep venous thrombosis as described. ECG Attestation: I personally reviewed and interpreted this ECG as follows: Prior ECG tracings: available for review Interpretation: Normal sinus rhythm with right bundle branch block and left anterior fascicular block, not new, unchanged from 10/28/2024.
[2024-10-29 09:00] LABS: Troponin I* 0.01 ng/mL (0.01-0.04)
[2024-10-29] MEDS: APIXABAN 5 MG TABLET 10 MG PO (09:19)
[2024-10-29] MEDS: atenoloL 25 MG TABLET PO (09:20)
[2024-10-29] MEDS: MAGNESIUM OXIDE 400 MG TABLET PO (09:20)
[2024-10-29] MEDS: FOLIC ACID 1 MG TABLET 4 MG PO (09:20)
[2024-10-29 09:24] VITALS: PULSE 81
[2024-10-29] MEDS: SODIUM CHLORIDE 0.9 % (FLUSH) 10 ML SYRINGE 5 ML IVF (09:59)
[2024-10-29] MEDS: buPROPion XL 150 MG TABLET 300 MG PO (10:00)
--- NOTE | 2024-10-29 10:52 | PC.SOCIAL ---
Discharge planning: Pt will be transferring to [facility]. No social work at this time. Social work to follow-up as needed.
[2024-10-29 11:00] VITALS: BP 141/76; PULSE 78; RESP 20; TEMP 36.8; O2SAT 88
[2024-10-29] MEDS: PERFLUTREN LIPID MICROSPHERES 2 ML VIAL IVP (11:27)
--- NOTE | 2024-10-29 11:36 | PM.DS1 ---
DS: Providers Provider Date Seen: 10/29/24 Date of admission: 10/28/24 18:30 Primary care physician: Aminata Youssef MD Admitting Clinician: Isaias Victoria MD Consults: 10/28/24 18:03 Consult to Band Director [CONS] Routine Comment: Reason for Consult:: Discharge Planning Needs 10/29/24 07:56 Consult to Physical Therapy [CONS] Routine Comment: Reason(s) for PT Consult:: Evaluate and Treat Any Restrictions?:: No Restrictions Attending Physician on discharge: Maldonado Monahan MD Date of Discharge: 10/29/24 DS: Diagnosis Discharge Diagnosis (1) Pulmonary embolism: Status: Acute Problem details: - CT of the chest PE protocol on 10/28/24 demonstrates the followin. Large embolus within the right main pulmonary artery extending into the right upper, right middle and lower lobe pulmonary arteries. 2. The right ventricle appears somewhat dilated suggestive right heart strain. - trop-i stable at 0.01-0.02. Serial EKG demonstrating normal sinus rhythm with right bundle branch block and left anterior fascicular block pattern. - Treated with apixaban - bilateral lower extremity ultrasound obtained 10/29/24 demonstrates the following: There is acute, largely occlusive clot identified in the bilateral lower extremity deep venous system. This involves the proximal, mid and distal femoral veins and the posterior tibial veins bilaterally. The other visualized venous structures show no evident abnormality. - I have a call in to [facility] Interventional Radiology and I am awaiting call back to discuss possible catheter directed thrombolytic therapy. (2) Acute bilateral deep vein thrombosis (DVT) of femoral veins: Status: Acute Problem details: - U/S 10/29/24: There is acute, largely occlusive clot identified in the bilateral lower extremity deep venous system. This involves the proximal, mid and distal femoral veins and the posterior tibial veins bilaterally. The other visualized venous structures show no evident abnormality. - started apixaban 10/28/24 (3) Deep vein thrombosis (DVT) of posterior tibial vein: Status: Acute Problem details: - U/S 10/29/24: There is acute, largely occlusive clot identified in the bilateral lower extremity deep venous system. This involves the proximal, mid and distal femoral veins and the posterior tibial veins bilaterally. The other visualized venous structures show no evident abnormality. 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 Rheumatoid factor negative. She says business mgr is questioning the diagnosis (7) Essential hypertension: Status: Acute Problem details: on medication (8) Frailty syndrome in geriatric patient: Status: Acute (9) Multifactorial gait disorder: Status: Acute Problem details: - PT and OT consult (10) Cognitive impairment: Status: Acute Problem details: - She underwent an occupational therapy assessment fall 2020, MoCA score 24/30 (11) Fatigue: Status: Acute Problem details: Chronic (12) Milk allergy: Status: Acute Problem details: Patient reports an allergy to milk which causes mental clouding. We discussed that this may not be a true allergy. She is concerned because her blood pressure medicine contains milk. Recommend she continue it and review with primary care (13) Lymphedema: Status: Acute Problem details: Chronic. Not currently using compression. Does have Velcro style compression wraps at home (14) Back pain: Status: Acute Problem details: I suspect her back pain which is currently bothering her on the left side of her chest is due to musculoskeletal causes, kyphosis, not PE (15) Abdominal mass: Status: Acute Problem details: - 3 cm Cystic mass in the left abdomen noted incidentally on CT of the chest on 10/28/2024. - Recommend non emergent CT abdomen and pelvis for further evaluation. This can be done as an outpatient when she has recovered from her current pulmonary embolism. DS: Summary Hospital Course Hospital Course: Admission history of present illness (10/28/2024): 79 year old female 79-year-old female with a past medical history including hypertension (amlodipine/benazepril, atenolol), rheumatoid arthritis (methotrexate), elevated BMI, sleep apnea, frailty, presents with a 1 day history of increasing dyspnea especially with activity. She has also noted some left mid back pain for few weeks. Per medical record she had a visit for low back pain in September 2023. Per that note she had been having back spasms for week. Per note she was very sedentary, typical only walks 15 ft. She was referred physical therapy. She also has a visit in August 2024 with about a year long history pain in her left lower breast. 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 Was apparently low likelihood to represent cardiac etiology at that time She has no known history of coronary disease or CHF. She does have a history of hypertension, and her daughter notes that it is not well controlled. She also has rheumatoid arthritis and is generally very sedentary. In the emergency department she was found to have a fairly large pulmonary embolism in the right main pulmonary artery. No previous history of thrombophilia. No family history of thrombophilia. No personal history of cancer. She does have rheumatoid arthritis and obesity. No recent immobilization. No lower extremity injury except she dropped something on her right foot a week ago. She has felt chilled but has not had an objective fever. She has been generally fatigued. No known contagious exposures. She has chronic lower extremity edema which is not changed from baseline. Not worse or better. Hospital day 2, 10/29/2024: New onset dyspnea improved with oxygen supplementation. Still has dyspnea with exertion above and beyond her baseline level of dyspnea with exertion. Describes new sudden onset dyspnea yesterday, worse with exertion. Denies chest heaviness, pressure, tightness, or pain. Denies syncope or near-syncope. Denies nausea or vomiting. Denies palpitations. Denies lower extremity pain. Does not have any more or less lower extremity edema than usual. No erythema, warmth, tenderness of lower extremities. I have spoken with a couple of physicians from [facility] at this time. First I spoke with Dr. Méndez, interventional radiologist, who agrees patient needs additional assessments at [facility] to further consider options for the patient including systemic thrombolytics therapy, catheter directed thrombolytics therapy, mechanical thrombectomy. He recommends transfer to [place] as soon as there is a bed available. Secondly, I spoke with Dr. Pham, hospitalist, who has agreed to accept the patient in transfer when there is a bed available. She did indicate a preference that we hold the apixaban and initiate heparin drip in preparation for an intervention. We have not yet received word from [facility] about when they might accept the patient, depending on bed availability. Should her condition decompensated the meantime, will call back and make arrangements for sooner transfer. I spoke with the patient about these recommendations. She is agreeable to proceed. I spoke with her daughter, Madison, who is agreeable also. I spoke with our pharmacist about switching from apixaban to heparin drip therapy. They indicate that given the patient has already received 2 doses of the apixaban, we initiate a heparin drip at the time of the neck is does for apixaban. The last dose of apixaban was 7:00 a.m. today. Next dose of apixaban is due at 7:00 p.m. today. Hence heparin drip will be initiated at 7:00 p.m. today in an effort to minimize risk for bleed and optimize therapeutic benefit. Time Spent with Patient Time attestation: Total time spent providing and/or coordinating discharge services: Time spent: Greater than 30 minutes Exam Narrative: Exam Narrative: Examined her in her hospital room. Appears comfortable and in no acute distress. Has oxygen supplementation via nasal cannula. Friendly, articulate, cooperative. Alert and oriented x4. No JVD or hepatojugular reflux while sitting upright. Lungs fairly clear to auscultation without wheezing, rhonchi, rales. Decreased breath sounds in bases. Chest wall excursions are full. No CVA tenderness to thumping. Heart tones with regular rhythm, normal S1-S2, without gallop or rub. Soft systolic murmur. PMI not laterally displaced. Abdomen with active bowel sounds, soft, nontender. Bilateral knee trace pretibial edema. No focal motor neurologic deficits. Const: Vital Signs, click to edit/add: Vital Signs - 24 hr 10/28/24 14:00 10/28/24 14:43 10/28/24 14:44 Temperature 98.3 F Pulse Rate 79 78 Pulse Rate [Apical ] 87 Pulse Rate [Pulse Oximeter] Pulse Rate [Right Radial] Respiratory Rate 28 H 15 26 H Blood Pressure 155/83 H Blood Pressure [Ri ght Arm] Blood Pressure [Ri ght FA] Blood Pressure [Ri ght Upper Arm] 183/83 H Pulse Oximetry 93 92 92 Oxygen Delivery Me thod Room Air Oxygen Flow Rate 10/28/24 14:45 10/28/24 15:00 10/28/24 15:02 Temperature Pulse Rate 78 78 78 Pulse Rate [Apical ] Pulse Rate [Pulse Oximeter] Pulse Rate [Right Radial] Respiratory Rate 20 22 22 Blood Pressure 152/73 H Blood Pressure [Ri ght Arm] Blood Pressure [Ri ght FA] Blood Pressure [Ri ght Upper Arm] Pulse Oximetry 92 92 93 Oxygen Delivery Me thod Oxygen Flow Rate 10/28/24 15:03 10/28/24 15:16 10/28/24 15:22 Temperature Pulse Rate 81 77 78 Pulse Rate [Apical ] Pulse Rate [Pulse Oximeter] Pulse Rate [Right Radial] Respiratory Rate 27 H 29 H Blood Pressure 170/82 H Blood Pressure [Ri ght Arm] Blood Pressure [Ri ght FA] Blood Pressure [Ri ght Upper Arm] Pulse Oximetry 94 91 93 Oxygen Delivery Me thod Oxygen Flow Rate 10/28/24 15:30 10/28/24 15:45 10/28/24 16:00 Temperature Pulse Rate 79 76 76 Pulse Rate [Apical ] Pulse Rate [Pulse Oximeter] Pulse Rate [Right Radial] Respiratory Rate 22 24 23 Blood Pressure Blood Pressure [Ri ght Arm] Blood Pressure [Ri ght FA] Blood Pressure [Ri ght Upper Arm] Pulse Oximetry 93 92 90 Oxygen Delivery Me thod Oxygen Flow Rate 10/28/24 16:15 10/28/24 16:43 10/28/24 16:45 Temperature Pulse Rate 75 83 82 Pulse Rate [Apical ] Pulse Rate [Pulse Oximeter] Pulse Rate [Right Radial] Respiratory Rate 22 30 H Blood Pressure Blood Pressure [Ri ght Arm] Blood Pressure [Ri ght FA] Blood Pressure [Ri ght Upper Arm] Pulse Oximetry 90 91 93 Oxygen Delivery Me thod Oxygen Flow Rate 10/28/24 17:56 10/28/24 18:26 10/28/24 19:00 Temperature 98.2 F Pulse Rate Pulse Rate [Apical ] Pulse Rate [Pulse Oximeter] Pulse Rate [Right Radial] 78 Respiratory Rate 20 16 Blood Pressure Blood Pressure [Ri ght Arm] 151/88 H Blood Pressure [Ri ght FA] Blood Pressure [Ri ght Upper Arm] Pulse Oximetry 83 L 94 93 Oxygen Delivery Me thod Room Air Nasal Cannula Nasal Cannula Oxygen Flow Rate 2 2 10/28/24 19:30 10/28/24 20:07 10/28/24 23:00 Temperature 97.5 F L Pulse Rate 73 Pulse Rate [Apical ] Pulse Rate [Pulse Oximeter] Pulse Rate [Right Radial] 74 Respiratory Rate 16 16 Blood Pressure Blood Pressure [Ri ght Arm] 170/76 H Blood Pressure [Ri ght FA] Blood Pressure [Ri ght Upper Arm] Pulse Oximetry 93 Oxygen Delivery Me thod Nasal Cannula Oxygen Flow Rate 2 10/28/24 23:00 10/29/24 00:00 10/29/24 03:00 Temperature 98.3 F Pulse Rate Pulse Rate [Apical ] Pulse Rate [Pulse Oximeter] 80 80 Pulse Rate [Right Radial] Respiratory Rate 16 18 20 Blood Pressure Blood Pressure [Ri ght Arm] Blood Pressure [Ri ght FA] 166/82 H Blood Pressure [Ri ght Upper Arm] Pulse Oximetry 92 90 91 Oxygen Delivery Me thod Nasal Cannula Nasal Cannula Nasal Cannula Oxygen Flow Rate 2 2 2 10/29/24 08:00 10/29/24 08:00 10/29/24 08:30 Temperature 98.1 F Pulse Rate Pulse Rate [Apical ] Pulse Rate [Pulse Oximeter] 78 78 Pulse Rate [Right Radial] Respiratory Rate 20 20 20 Blood Pressure Blood Pressure [Ri ght Arm] Blood Pressure [Ri ght FA] 151/74 H Blood Pressure [Ri ght Upper Arm] Pulse Oximetry 92 92 Oxygen Delivery Me thod Nasal Cannula Nasal Cannula Oxygen Flow Rate 2.5 2.5 10/29/24 09:24 Temperature Pulse Rate 81 Pulse Rate [Apical ] Pulse Rate [Pulse Oximeter] Pulse Rate [Right Radial] Respiratory Rate Blood Pressure Blood Pressure [Ri ght Arm] Blood Pressure [Ri ght FA] Blood Pressure [Ri ght Upper Arm] Pulse Oximetry Oxygen Delivery Me thod Oxygen Flow Rate DS: Data Data Completed and Pending Labs on day of discharge: Labs from last 24 hours 10/29/24 10/29/24 10/28/24 07:32 06:09 15:02 WBC 12.28 H 10.03 RBC 3.76 L 4.21 Hgb 12.1 13.5 Hct 37.4 42.1 MCV 100 100 MCH 32 32 MCHC 32 32 RDW Coeff of Mike 15.0 14.8 Plt Count 241 240 Neut % (Auto) 68.4 72.3 H Lymph % (Auto) 18.3 L 15.2 L Appling % (Auto) 7.7 8.1 Eos % (Auto) 4.0 3.7 Baso % (Auto) 0.5 0.4 Neut # (Auto) 8.40 H 7.30 H Lymph # (Auto) 2.20 1.50 Appling # (Auto) 0.90 0.80 Eos # (Auto) 0.50 0.37 Baso # (Auto) 0.10 0.04 Abs Immat Gran (auto) 0.10 0.03 Imm/Tot Granulo (auto) 1.1 0.3 INR 0.97 APTT 30 D-Dimer Quant (PE/DVT) 7.75 H Sodium 142 145 Potassium 3.4 L 3.7 Chloride 113 114 Carbon Dioxide 21 25 Anion Gap 8 6 L BUN 21 22 Creatinine 0.7 0.7 Estimated Creat Clear 40.38 40.38 Estimated GFR 87 87 Glucose 96 104 Lactate 1.4 Calcium 8.8 9.6 Troponin I 0.01 0.02 NT-Pro-B Natriuret Pep 496 SARS-CoV-2 (PCR) Influenza Type A (PCR) Influenza Type B (PCR) RSV (PCR) Lab Acknowledgement Test Added 10/28/24 14:43 WBC RBC Hgb Hct MCV MCH MCHC RDW Coeff of Mike Plt Count Neut % (Auto) Lymph % (Auto) Appling % (Auto) Eos % (Auto) Baso % (Auto) Neut # (Auto) Lymph # (Auto) Appling # (Auto) Eos # (Auto) Baso # (Auto) Abs Immat Gran (auto) Imm/Tot Granulo (auto) INR APTT D-Dimer Quant (PE/DVT) Sodium Potassium Chloride Carbon Dioxide Anion Gap BUN Creatinine Estimated Creat Clear Estimated GFR Glucose Lactate Calcium Troponin I NT-Pro-B Natriuret Pep SARS-CoV-2 (PCR) Negative SARS-CoV-2 Influenza Type A (PCR) Negative PCR FLU A Influenza Type B (PCR) Negative PCR FLU B RSV (PCR) Negative PCR RSV Lab Acknowledgement Imaging CT scan - chest: Radiologist's impression: FINDINGS: There is a large embolus within the right main pulmonary artery that extends into the right upper, right middle and lower lobe pulmonary arteries. There are no left side emboli are identified. The right ventricle appears somewhat dilated suggestive of right heart strain. There is a small pericardial effusion. There is a small left pleural effusion. There is nonspecific patchy ground-glass opacity within both lungs. There are no enlarged hilar, mediastinal or axillary lymph nodes. Within the left side of the upper abdomen, there is a 3.0 cm cystic lesion. The visualized liver, spleen and adrenal glands appear normal. There are no lytic or sclerotic skeletal lesions. IMPRESSION: 1. Large embolus within the right main pulmonary artery extending into the right upper, right middle and lower lobe pulmonary arteries. 2. The right ventricle appears somewhat dilated suggestive right heart strain. 3. Small pericardial effusion. 4. Small left pleural effusion. 5. Nonspecific patchy ground-glass opacities within both lungs. 6. There is a 3.0 cm cystic within the left side of the abdomen not fully visualized on this scan. An elective a CT of the abdomen and pelvis is recommended to assess the anatomic origin of this lesion. Venous US: Radiologist's impression: Findings: There is acute, largely occlusive clot identified in the bilateral lower extremity deep venous system. This involves the proximal, mid and distal femoral veins and the posterior tibial veins bilaterally. The other visualized venous structures show no evident abnormality. I discussed the above findings with Dr. Radha Wetzel at 9 a.m. on October 29, 2021 5 Impression: Extensive bilateral lower extremity deep venous thrombosis as described. Discharge Plan Discharge Disposition: [facility] Discharge Location: [facility] Date of Admission: 10/28/24 18:30 Attending Provider on Discharge: Maldonado Monahan Primary Care Provider: Aminata Youssef Condition: Guarded Discharge Orders: Transfer of Care to Other Hospital (ORDER); Ordered 10/29/24 Ordered By: Maldonado Monahan Oxygen: Yes Oxygen Delivery Method: Nasal Cannula Oxygen Flow Rate: 1-4 LPM Urinary Catheter: No Services not available here: [employer] Pegger, interventional radiologist, vascular surgeon
[2024-10-29] MEDS: polyethylene glycoL 3350 17 GM PACK PO (14:22)
--- NOTE | 2024-10-29 14:47 | PC.NURSE ---
Discharge note: Pt left unit at 1445 with EMS via stretcher. VS WNL. IV SL in left AC. AxO. SOB. Pitting edema to BLE. Ambulates SBA, GB, W. On 1.5 L NC. Denies pain. Patient belongings sheet signed.
== END 2024-10-29 14:45 | disposition short-term general hospital (02) | DRG 175 ==
LOC: ED 17:05 → MEDSURG 17:29
PROVIDERS: Internal Medicine; Admitting Provider Family Medicine; Emergency Provider Emergency Medicine; PCP Internal Medicine; Visit Provider Family Medicine
DX: I26.99 Other pulmonary embolism without acute cor pulmonale (principal); J96.01 Acute respiratory failure with hypoxia; Z59.19 Other inadequate housing; I82.413 Acute embolism and thrombosis of femoral vein, bilateral; I82.443 Acute embolism and thrombosis of tibial vein, bilateral; R26.9 Unspecified abnormalities of gait and mobility; Z91.89 Other specified personal risk factors, not elsewhere classified; G31.84 Mild cognitive impairment of uncertain or unknown etiology; R53.83 Other fatigue; R19.00 Intra-abdominal and pelvic swelling, mass and lump, unspecified site; I89.0 Lymphedema, not elsewhere classified; M06.9 Rheumatoid arthritis, unspecified; M54.9 Dorsalgia, unspecified; G47.33 Obstructive sleep apnea (adult) (pediatric); I10 Essential (primary) hypertension; E21.3 Hyperparathyroidism, unspecified; E78.5 Hyperlipidemia, unspecified; K21.9 Gastro-esophageal reflux disease without esophagitis; Z96.651 Presence of right artificial knee joint; Z91.011 Allergy to milk products
CPT/HCPCS: 36415; 71046; 71275; 80048; 81025; 83605; 83880; 84484; 85025; 85027; 85379; 85610; 85730; 87040; 87631; 93005; 93306; 93970; 97116; 97162; 97530; 99285; A9270; Q9957; Q9967

== ENCOUNTER 2024-10-29 14:37 | Outpatient (CLI) | payer MEDICARE, OTHER, SELFPAY | END 2024-10-29 14:38 | disposition home or self-care (01) | LOC: AMB 10-31 11:42 | PROVIDERS: PCP Internal Medicine; Visit Provider Emergency Medicine | DX: I26.99 Other pulmonary embolism without acute cor pulmonale (principal); I82.413 Acute embolism and thrombosis of femoral vein, bilateral | CPT/HCPCS: A0425; A0429 ==

== ENCOUNTER 2024-11-22 12:14 | Emergency (ER) | payer MEDICARE, OTHER, SELFPAY ==
[2024-11-22 12:16] VITALS: BP 108/54; PULSE 61; RESP 18; TEMP 36.7; O2SAT 97; BMI 31.6
--- NOTE | 2024-11-22 12:35 | CRLHL7_ITS ---
For Patients: As a result of the Cures Act, medical imaging exams and procedure reports are released immediately into your electronic medical record. You may view this report before your referring provider. If you have questions, please contact your health care provider. Indication: Pain Technique: Frontal view of the pelvis and frontal and lateral views of the left hip Comparison: None Findings/Impression: No acute fracture or malalignment. There are some degenerative changes of the imaged lower lumbar spine. No significant osteoarthritic degenerative changes of the pelvis. No suspicious osseous lesions. The soft tissues are unremarkable. Dictated by David Mai MD @ 11/22/2024 1:21:54 PM (Electronically Signed)
--- NOTE | 2024-11-22 12:35 | CRLHL7_ITS ---
For Patients: As a result of the Cures Act, medical imaging exams and procedure reports are released immediately into your electronic medical record. You may view this report before your referring provider. If you have questions, please contact your health care provider. INDICATION: Left thigh pain (greater trochanter). Recent DVT. TECHNIQUE: Venous duplex ultrasound of the left lower extremity utilizing compression with mcmahan-scale, color Doppler, and spectral Doppler imaging. COMPARISON: DVT ultrasound on 10/29/2024 FINDINGS: There is no sonographic evidence of an acute deep vein thrombosis in the left common femoral, deep femoral, superficial femoral, popliteal, posterior tibial, peroneal, or contralateral common femoral veins. There is some residual chronic, nonocclusive clot seen along the wall of the proximal and mid superficial femoral vein and possibly along the wall of the left posterior tibial vein. There is no visualized superficial vein thrombosis. The soft tissues are unremarkable. IMPRESSION: 1. No acute deep vein thrombosis in the left lower extremity. 2. There is some residual, chronic, nonocclusive clot seen along the wall of the left superficial femoral and possibly along the wall of the left posterior tibial vein. Dictated by David Mai MD @ 11/22/2024 2:28:35 PM (Electronically Signed)
--- NOTE | 2024-11-22 13:46 | ED_ITS ---
HPI - General Adult General Date Seen: 11/22/24 Chief complaint: Extremity Pain/Injury, Lower Stated complaint: Having left leg pain Time Seen by Provider: 11/22/24 12:28 Source: patient Mode of arrival: ambulatory Limitations: no limitations History of Present Illness HPI narrative: patient is an 79-year-old female presenting to the emergency department for left hip pain. She was recently diagnosed with DVT and PE which she was sent up to [place] for. She was placed on blood thinners but no further intervention was required. she states she was doing well and having no symptoms until the past few days she is having pain to her left hip. She is concerned could be related to another blood clots despite being on blood thinners as pain was in a similar area last time. She does state that some the pain was more anterior on the thigh. Does not remember any injuries. States the pain has been getting worse. No other concerns noted. Denies fevers, chills, chest pain, shortness of breath, weakness, numbness, headache. Related Data Home Medications ?Medication ?Instructions ?Recorded ?Confirmed cholecalciferol (vitamin D3) 25 1,000 unit PO DAILY 06/08/22 11/22/24 mcg (1,000 unit) tablet magnesium oxide 400 mg (241.3 mg 400 mg PO DAILY 06/08/22 11/22/24 magnesium) tablet methotrexate sodium 2.5 mg tablet 2.5 mg PO .Every 7 Days 06/08/22 11/22/24 cranberry 2 tab PO DAILY 09/20/22 11/22/24 acetaminophen 500 mg tablet 250 mg PO Q6H PRN 11/01/22 11/22/24 (Tylenol Extra Strength) folic acid 1 mg tablet 4 mg PO DAILY 08/23/24 11/22/24 apixaban 5 mg tablet (Eliquis) PO 11/22/24 Previous Rx's ?Medication ?Instructions ?Recorded atenolol 25 mg tablet 25 mg PO QAM #90 tabs 07/13/24 amlodipine 10 mg-benazepril 20 mg 1 cap PO DAILY #90 caps 10/09/24 capsule bupropion HCl 300 mg 24 hr tablet, 300 mg PO QAM #90 tabs 10/09/24 extended release Allergies Allergy/AdvReac Type Severity Reaction Status Date / Time milk Allergy Intermediate Verified 11/22/24 12:25 Review of Systems Status of ROS: Reports: 10 or more systems reviewed and unremarkable except as noted in History and below [facility] Medical History History of pulmonary embolism ?Z86.711 - Personal history of pulmonary embolism (ICD-10) History of DVT in adulthood ?Z86.718 - Personal history of other venous thrombosis and embolism (ICD-10) Surgical History History of parathyroidectomy (05/31/22) ?Z98.890 - Other specified postprocedural states (ICD-10) ?Z90.89 - Acquired absence of other organs (ICD-10) History of cholecystectomy (05/31/22) ?Z90.49 - Acquired absence of other specified parts of digestive tract (ICD- 10) History of section (05/31/22) ?Z98.891 - History of uterine scar from previous surgery (ICD-10) Presence of right artificial knee joint (12/15/18) ?Z96.651 - Presence of right artificial knee joint (ICD-10) History of total knee replacement (2017) ?Z96.659 - Presence of unspecified artificial knee joint (ICD-10) History of parathyroidectomy (2011) ?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 Another daughter, Madison, lives next door. 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 Code status is full. Minimal smoking as a young person. She does not drink alcohol. She has a ramp to get into her home. She walks with a walker. Very sedentary What is your current living situation?: I presently have a place to live Problems where you live: smoke detectors missing or not working and carbon monoxide detectors missing or not working Problems where you live details: see above In the past 12 months, utilities in danger of being shut off: no In past 12 months, lack of transportation kept you from medical appts, meetings, work, or getting things needed for daily living: no In the past 12 mos, have been you worried that your food would run out before you had money to buy more?: never true In the past 12 mos, the food you bought just didn't last and you didn't have money to buy more?: never true Highest level of school completed/degree received: Bachelor's degree Smoking Status: Former smoker How often do you have a drink containing alcohol: never AUDIT-C Alcohol total score: 0 Non-prescribed substance use: denies use Caffeine: Yes (couple of cups a day) How often does anyone, including family, friends and others, physically hurt you : never How often does anyone, including family, friends and others, insult or talk down to you: sometimes How often does anyone, including family, friends and others, threaten you with harm: never How often does anyone, including family, friends and others, scream or curse at you: sometimes service: No Health Related Social Needs: Inadequate housing (Z59.1) and Other personal risk factors, not elsewhere classified (Z91.89) Exam Narrative: Exam Narrative: Const: Well-nourished, Well-developed, in mild distress Eyes: PERRL, no conjunctival injection, and symmetrical lids HENT: Atraumatic external nose and ears. Moist mucous membranes. Neck: Symmetric, trachea midline, No thyromegaly. CVS: RRR, No murmurs or gallops. Peripheral pulses 2+ and equal in all extremities RESP: Unlabored respiratory effort. Clear to auscultation bilaterally. GI: Nontender/Nondistended, No rebound or guarding. MSK:Extremities w/o deformity, Normal Active ROM, tenderness to palpation over left greatertrochanter Skin: Warm, Dry. No rashes or lesions. Neuro: Normal Muscle tone, No focal neurological deficits. Psych: Awake, Alert, & Oriented x3. Appropriate mood and affect. Const: Vital Signs, click to edit/add: Vital Signs - 24 hr 11/22/24 12:16 Temperature 98.1 F Pulse Rate [Right Pulse Oximeter] 61 Respiratory Rate 18 Blood Pressure [Ri ght Forearm] 108/54 L Pulse Oximetry 97 Oxygen Delivery Me thod Room Air Course Vital Signs Vital signs: Initial Vital Signs Temperature 98.1 F 11/22/24 12:16 Temperature Source Temporal Artery Scan 11/22/24 12:16 Pulse Rate 61 11/22/24 12:16 Pulse Rhythm Regular 11/22/24 12:16 Pulse Strength 3+ Normal 11/22/24 12:16 Respiratory Rate 18 11/22/24 12:16 Blood Pressure 108/54 L 11/22/24 12:16 Blood Pressure Mean 72 11/22/24 12:16 Blood Pressure Position Sitting 11/22/24 12:16 Pulse Oximetry 97 11/22/24 12:16 Oxygen Delivery Method Room Air 11/22/24 12:16 Vital Signs Temperature 98.1 F 11/22/24 12:16 Pulse Rate 61 11/22/24 12:16 Respiratory Rate 18 11/22/24 12:16 Blood Pressure 108/54 L 11/22/24 12:16 Pulse Oximetry 97 11/22/24 12:16 Oxygen Delivery Method Room Air 11/22/24 12:16 Temperature 98.1 F 11/22/24 12:16 Pulse Rate 61 11/22/24 12:16 Respiratory Rate 18 11/22/24 12:16 Blood Pressure 108/54 L 11/22/24 12:16 Pulse Oximetry 97 11/22/24 12:16 Oxygen Delivery Method Room Air 11/22/24 12:16 Medical Decision Making MDM Narrative Medical decision making narrative: Patient is an 79-year-old female presenting to emergency department for left hip pain. Pain is right over the left greater trochanter. This is likely a trochanteric bursitis but they are very concerned about a blood clot so will repeat an ultrasound to make sure and new blood clot has not formed. Also do hip x-ray to make sure there are no fractures or other abnormalities. X-ray returned showing no concerning findings. The ultrasound returned showing improvement in her blood clot. Again of the symptoms are likely from a bursitis. my concern for infection are low and I do not believe lab work Is necessary. Patient will be discharged. She is agreeable to this plan. Imaging Data Left hip x-ray: Attestation: I have reviewed the pertinent imaging results. Radiologist's impression: No acute fracture or malalignment. There are some degenerative changes of the imaged lower lumbar spine. No significant osteoarthritic degenerative changes of the pelvis. No suspicious osseous lesions. The soft tissues are unremarkable. Dictated by David Mai MD @ 11/22/2024 1:21:54 PM left lower extremity veinous ultrasound: Attestation: I have reviewed the pertinent imaging results. Radiologist's impression: 1. No acute deep vein thrombosis in the left lower extremity. 2. There is some residual, chronic, nonocclusive clot seen along the wall of the left superficial femoral and possibly along the wall of the left posterior tibial vein. Dictated by David Mai MD @ 11/22/2024 2:28:35 PM Discharge Plan Discharge Clinical Impression: Greater trochanteric bursitis of left hip Patient Disposition: Home, Self-Care Condition: Stable Instructions: Hip Bursitis (ED) Additional Instructions: I believe your pain is related to inflammation to the bursa on your greater trochanter. Recommendation this time is occasional NSAIDs for pain. Also use Tylenol for pain. Also recommend rest and heat to the area. If symptoms persist follow-up with orthopedics or your primary care provider for possible injection. Prescriptions: No Action cranberry 2 tab PO DAILY methotrexate sodium 2.5 mg tablet 2.5 mg PO .Every 7 Days cholecalciferol (vitamin D3) 25 mcg (1,000 unit) tablet 1,000 unit PO DAILY magnesium oxide 400 mg (241.3 mg magnesium) tablet 400 mg PO DAILY acetaminophen [Tylenol Extra Strength] 500 mg tablet 250 mg PO Q6H PRN folic acid 1 mg tablet 4 mg PO DAILY Eliquis 5 mg tablet PO atenolol 25 mg tablet 25 mg PO QAM Qty: 90 1RF bupropion HCl 300 mg tablet extended release 24 hr 300 mg PO QAM Qty: 90 0RF amlodipine-benazepril 10-20 mg capsule 1 cap PO DAILY Qty: 90 0RF Follow Up/Referrals: Aminata Youssef MD [Primary Care Provider] - Stand Alone Forms: MyHealth Info Instructions
== END 2024-11-22 15:02 | disposition home or self-care (01) ==
PROVIDERS: Emergency Provider Student in an Organized Health Care Education/Training Program; PCP Internal Medicine
DX: M70.62 Trochanteric bursitis, left hip (principal); M79.652 Pain in left thigh
CPT/HCPCS: 73502; 93971; 99283

== ENCOUNTER 2024-12-27 15:46 | Outpatient (CLI) | payer MEDICARE, OTHER, SELFPAY ==
[2024-12-27 16:05] LABS: Basophils Absolute Auto 0.06 K/uL (0.00-0.30); Basophils Percent Auto 0.7 % (0.0-3.0); Eosinophils Absolute Auto 0.16 K/uL (0.00-0.50); Eosinophils Percent Auto 1.8 % (0.0-7.0); Hematocrit 47.3 % (33.0-51.0); Hemoglobin* 14.8 gm/dL (12.0-16.0); Immature Granulocytes Abs Auto 0.01 K/uL (0.00-0.30); Immature Granulocytes Pct Auto 0.1 %; Lymphocytes Absolute Auto 2.18 K/uL (0.90-2.90); Mean Corpuscular HGB Conc 31 gm/dL (32-36); Mean Corpuscular Hemoglobin 31 pg (26-34); Mean Corpuscular Volume 100 fL (80-100); Monocytes Percent Auto 4.6 % (0.0-11.0); Neutrophils Absolute Auto 5.91 K/uL (1.7-7.0); Neutrophils Percent Auto 67.8 % (42.0-72.0); Platelet Count* 296 K/uL (140-440); Red Blood Count 4.72 m/uL (4.00-5.20); Slide Review Reflex No; White Blood Count* 8.72 K/uL (4.50-11.00)
[2024-12-27 16:18] LABS: Albumin* 4.6 g/dL (3.3-5.0); Chloride* 109 mmol/L (96-114); Potassium* 4.7 mmol/L (3.6-5.1); Sodium* 142 mmol/L (135-149)
[2024-12-27 16:21] LABS: Alanine Aminotransferase* 23 U/L (4-35); Anion Gap 9 mEq/L (7-15); Aspartate Amino Transferase* 31 U/L (12-35); Blood Urea Nitrogen* 24 mg/dL (7-30); Carbon Dioxide* 24 mmol/L (20-32); Creatinine* 1.1 mg/dL (0.5-1.5); Estimated Glomerular Filt Rate 51 ml/min; Estimated Glomerular Filt Rate 57 ml/min
[2024-12-27 16:22] LABS: Calcium* 9.8 mg/dL (8.4-10.6); Glucose* 95 mg/dL (60-115)
== END 2024-12-27 15:47 | disposition home or self-care (01) ==
LOC: LAB 15:47
PROVIDERS: PCP Internal Medicine; Visit Provider Student in an Organized Health Care Education/Training Program
DX: M06.9 Rheumatoid arthritis, unspecified (principal); I10 Essential (primary) hypertension; Z79.899 Other long term (current) drug therapy; Z79.631 Long term (current) use of antimetabolite agent; Z86.711 Personal history of pulmonary embolism; Z86.718 Personal history of other venous thrombosis and embolism; Z79.01 Long term (current) use of anticoagulants; R41.89 Other symptoms and signs involving cognitive functions and awareness; R26.89 Other abnormalities of gait and mobility; R19.00 Intra-abdominal and pelvic swelling, mass and lump, unspecified site; E66.9 Obesity, unspecified; G47.33 Obstructive sleep apnea (adult) (pediatric)
CPT/HCPCS: 36415; 80048; 82040; 82565; 84450; 84460; 85025

== ENCOUNTER 2025-01-07 12:29 | Outpatient (CLI) | payer MEDICARE, OTHER, SELFPAY ==
--- NOTE | 2025-01-07 13:00 | CRLHL7_ITS ---
For Patients: As a result of the Century Cures Act, medical imaging exams and procedure reports are released immediately into your electronic medical record. You may view this report before your referring provider. If you have questions, please contact your health care provider. INDICATION: Ground-glass opacities. Left abdominal mass. TECHNIQUE: CT chest, abdomen and pelvis acquired with 96 cc of Isovue 370 IV contrast. COMPARISON: CT chest 10/28/2024. FINDINGS: Chest: Cardiovascular structures: Aortic atherosclerosis. Thoracic aorta is normal in caliber. Main pulmonary artery is dilated to 3.6 cm, suggesting underlying pulmonary hypertension. Heart size is within normal limits. Mediastinum and debbie: No pathologic lymphadenopathy. Small hiatal hernia. Lungs: No pneumothorax. Central airways are patent. Incidental calcified granuloma in the right lower lobe. Mild bibasilar scarring and atelectasis. Lungs otherwise clear. Pleura and pericardium: No effusions. Chest wall and axilla: Unremarkable. Abdomen and Pelvis: Liver: Unremarkable. Spleen: Unremarkable. Pancreas: Unremarkable. Gallbladder and bile ducts: Cholecystectomy. No biliary ductal dilatation. Kidneys: Bilateral cysts correspond to cystic lesion in the left abdomen discussed on the comparison chest CT. Nonobstructing stone in the lower pole of the left kidney measures 6 mm. No hydronephrosis. Adrenal glands: Unremarkable. GI tract: Distal colonic diverticulosis without evidence of acute diverticulitis. No obstruction or acute inflammatory changes. No free air or free fluid. Small fat containing umbilical hernia. Vascular structures: Mild atherosclerotic disease. No abdominal aortic aneurysm. Lymph nodes: Unremarkable. Pelvic Organs: Unremarkable. Bones: Mild degenerative changes spine and pelvis. No acute or suspicious abnormality. IMPRESSION: 1. No acute airspace disease. 2. Dilatation of the main pulmonary artery concerning for underlying pulmonary hypertension. 3. Left renal cyst accounts for cystic lesion discussed on comparison chest CT. 4. Nonobstructing left renal stone. 5. Distal colonic diverticulosis without evidence of acute diverticulitis. Dictated by Ramin Villasenor MD @ 01/08/2025 4:29:07 PM Please note that all CT scans at this facility use dose modulation, iterative reconstruction, and/or weight-based dosing when appropriate to reduce radiation dose to as low as reasonably achievable. Dictated by: Ramin Villasenor MD @ 01/08/2025 16:29:29 (Electronically Signed)
== END 2025-01-07 12:30 | disposition home or self-care (01) ==
LOC: CT 12:29
PROVIDERS: PCP Internal Medicine; Visit Provider Internal Medicine
DX: R91.8 Other nonspecific abnormal finding of lung field (principal); R19.00 Intra-abdominal and pelvic swelling, mass and lump, unspecified site; N28.1 Cyst of kidney, acquired; N20.0 Calculus of kidney; K57.30 Diverticulosis of large intestine without perforation or abscess without bleeding
CPT/HCPCS: 71260; 74177; Q9967

== ENCOUNTER 2025-03-06 17:12 | Outpatient (CLI) | payer MEDICARE, OTHER, SELFPAY | END 2025-03-06 17:13 | disposition home or self-care (01) | PROVIDERS: PCP Internal Medicine; Visit Provider Family Medicine | DX: R42 Dizziness and giddiness (principal) | CPT/HCPCS: A0425; A0429 ==

== ENCOUNTER 2025-03-06 17:46 | Emergency (ER) | payer MEDICARE, OTHER, SELFPAY ==
--- OUTSIDE RECORDS SUMMARY | 2025-03-06 17:48 | XMS_ITS | Encounter Summary ---
Author Organization [facility] Address [address] [place] [address] Care Team Providers Care Prevention Coordinator Name Role Phone Bettye Gonzales MD Unavailable + Bonny Cooley MD Primary Care Provider Antony Chakraborty MD Unavailable Mateo Cheema MD Unavailable [phone] Ermias Colón MD Unavailable Bonny Cooley MD Unavailable [phone] Pam Hernandez MD Unavailable [phone] Lázaro Horowitz MD Unavailable Jaime Grover MD Unavailable [phone] Toni Sheth MD Unavailable Toni Sheth MD Unavailable Bertram lEizabeth MD Unavailable Bonny Cooley MD Unavailable [phone] Aminata Youssef MD Primary Care Provider Bertram Elizabeth MD Unavailable Alex Johnson MD Unavailable Bonny Cooley MD Unavailable [phone] Bertram Elizabeth MD Unavailable [phone] Bertram Elizabeth MD Unavailable [phone] Alex Johnson MD Unavailable Alex Johnson MD Unavailable Encounter Details Date Type Department Care Team (Late st Contact Info) Description 06/27/2020 [facility] [address] [place] [phone] Keyona Carter Social History Tobacco Use [...] Sex Assigned at Female 08/28/2018 12:23 AM MILL BEAM FITTER Legal Sex Female 4:46 AM MILL BEAM FITTER Gender Identity Female 08/28/2018 12:23 AM MILL BEAM FITTER Sexual Orientation Straight 10/11/2019 2: 51 PM MILL BEAM FITTER COVID-19 Exposure Response Date Recorded In the last month, have you been in contact with someone who was confirmed or suspected to have Coronavirus / COVID-19? No / Unsure 06/23/2020 10:33 AM MILL BEAM FITTER documented as of this encounter Plan of Treatment Upcoming Encounters Date Type Department Care Team (Late st Contact Info) Description 04/25/2025 1:30 PM CDT Office Visit [facility] Special[facility] [address] [phone] Alex Johnson MD [address] [place] [address] documented as of this encounter Visit Diagnoses Not on filedocumented in this encounter Additional Health Concerns Infection Onset Date Last Indicated Resolved Time COVID-19 06/23/2020 06/23/2020 07/14/2020 11:4 0 PM MILL BEAM FITTER Recovered COVID 07/08/2020 07/08/2020 09/21/2020 1 1:39 PM MILL BEAM FITTER Assessment Noted Time PHQ-9 Depression Total Score: 11 020 2:18 PM CDT documented as of this encounter Care Teams Prevention Coordinator Relationship Specialty Start Date End Date Bonny Cooley MD [address] [place] [address] PCP - General Family Practice 09/30/15 06/02/21 Aminata Youssef MD [facility] [address] [address] PCP - General Internal Medicine 06/03/21 Bettye Gonzales MD Internal Medicine 04/10/15 Antony Chakraborty MD [address] [id number] MD INTERNAL MEDICINE - ENDOCRINOLOGY, DIABETES & METABOLISM 11/13/15 Mateo Cheema MD [address] [address]58405 Internal Medicine 08/06/16 Ermias Colón MD [address] [address] Referring Physician Neurology 09/23/16 Bonny Cooley MD [address] [address] Assigned PCP 10/05/15 07/26/20 Pam Hernandez MD [address] [place] [address] [place] [address] Assigned Behavioral Health Provider 05/30/20 08/01/21 Lázaro Horowitz MD [facility] [address] [place] [address] Assigned Rheumatology Provider 05/30/20 07/19/20 Jaime Grover MD [address] [place] [address] Assigned Gastroenterology Provider 05/30/20 11/14/21 Toni Sheth MD [address] [place] [address] [phone] Assigned Pediatric Specialist Provider 05/30/20 09/07/20 Toni Sheth MD [address] [place] [address] [phone] Assigned Surgical Provider 05/30/20 04/18/21 Bertram Elizabeth MD [address] [address] Assigned PCP 07/27/20 04/25/21 Bonny Cooley MD [address] [address] Assigned PCP 04/26/21 08/15/21 Bertram Elizabeth MD [address] [address] Assigned PCP 08/16/21 10/24/21 Alex Johnson MD [address] [place] [address] Assigned Rheumatology Provider 10/18/21 04/15/23 Bonny Cooley MD [address] [address] Assigned PCP 10/25/21 04/02/22 Bertram Elizabeth MD [address] [address] Assigned PCP 04/03/22 07/23/22 Bertram Elizabeth MD [address] [address] Assigned PCP 10/02/22 04/29/23 Alex Johnson MD [address] [place] [address] Rheumatology 10/04/24 Alex Johnson MD [address] [place] [address] Assigned Rheumatology Provider 10/28/24 documented as of this encounter
--- OUTSIDE RECORDS SUMMARY | 2025-03-06 17:48 | XMS_ITS | Encounter Summary ---
Author Organization [facility] Address [address] [place] [address] Care Team Providers Care Devops Consultant Name Role Phone Bettye Gonzales MD Unavailable + Bonny Cooley MD Primary Care Provider Antony Chakraborty MD Unavailable [phone] Mateo Cheema MD Unavailable [phone] Ermias Colón MD Unavailable Pam Hernandez MD Unavailable Jaime Grover MD Unavailable Toni Sheth MD Unavailable Bertram Elizabeth MD Unavailable Bonny Cooley MD Unavailable [phone] Aminata Youssef MD Primary Care Provider [phone] Bertram Elizabeth MD Unavailable Alex Johnson MD Unavailable [phone] Bonny Cooley MD Unavailable [phone] Bertram Elizabeth MD Unavailable Bertram Elizabeth MD Unavailable Alex Johnson MD Unavailable [phone] Alex Johnson MD Unavailable Encounter Details Date Type Department Care Team (Late st Contact Info) Description 01/12/2021 [facility] Medical Advice [facility] [address] [place] [phone] Bonny Cooley MD [address] [phone] Social History Tobacco Use Types Packs/Day Years Used Date Smoking Tobacco: Former Cigarettes 2 3 0 04/23/1976 - 12/17/1977 Smokeless Tobacco: Never Alcohol Use Standard Drinks/Week Comments No 0 (1 standard drink = 0.6 oz pur e alcohol) PHQ-2 Answer Date Recorded PHQ-2 Score 4 01/31/2020 Comments No Sex and Gender Information Value Date Recorded Sex Assigned at Female 08/28/2018 12:23 AM RUSH SEATER Legal Sex Female 4:46 AM RUSH SEATER Gender Identity Female 08/28/2018 12:23 AM RUSH SEATER Sexual Orientation Straight 10/11/2019 2: 51 PM RUSH SEATER documented as of this encounter Miscellaneous Notes * Telephone Encounter - Henrietta Gilliland RN - 01/13/2021 1:22 PM CDT [facility] communication. Patient needs medical records. Patient given number. Thanks! Henrietta Gilliland RN documented in this encounter Plan of Treatment Upcoming Encounters Date Type Department Care Team (Late st Contact Info) Description 04/25/2025 1:30 PM CDT Office Visit [address] [place] [phone] Alex Johnson MD [address] [place] [address] [place] [address] documented as of this encounter Visit Diagnoses Not on filedocumented in this encounter Additional Health Concerns Assessment Noted Time PHQ-9 Depression Total Score: 11 020 2:18 PM CDT documented as of this encounter Care Teams Devops Consultant Relationship Specialty Start Date End Date Bonny Cooley MD [address] [place] [address] PCP - General Family Practice 09/30/15 06/02/21 Aminata Youssef MD [facility] [address] [place] [address] PCP - General Internal Medicine 06/03/21 Bettye Gonzales MD MD Internal Medicine 04/10/15 Antony Chakraborty MD [address] [place] [address] INTERNAL MEDICINE - ENDOCRINOLOGY, DIABETES & METABOLISM 11/13/15 Mateo Cheema MD [address] [place] [address] Internal Medicine 08/06/16 Ermias Colón MD [address] 883165 Referring Physician Neurology 09/23/16 Pam Hernandez MD [address] [place] [address] [address] [place] [id number] Assigned Behavioral Health Provider 05/30/20 08/01/21 Jaime Grover MD [address] [place] [address] Assigned Gastroenterology Provider 05/30/20 11/14/21 Toni Sheth MD [address] [place] [address] Assigned Surgical Provider 05/30/20 04/18/21 Bertram Elizabeth MD [address] [place] [address] Assigned PCP 07/27/20 04/25/21 Bonny Cooley MD [address] [place] [address] Assigned PCP 04/26/21 08/15/21 Bertram Elizabeth MD [address] [place] [address] Assigned PCP 08/16/21 10/24/21 Alex Johnson MD [address] [place] [address] Assigned Rheumatology Provider 10/18/21 04/15/23 Bonny Cooley MD [address] [place] [address] Assigned PCP 10/25/21 04/02/22 Bertram Elizabeth MD [address] [address] Assigned PCP 04/03/22 07/23/22 Bertram Elizabeth MD [address] [address] Assigned PCP 10/02/22 04/29/23 Alex Johnson MD [address] [place] [address] [id number] Rheumatology 10/04/24 Alex Johnson MD [address] [place] [address] 229855 Assigned Rheumatology Provider 10/28/24 documented as of this encounter
--- OUTSIDE RECORDS SUMMARY | 2025-03-06 17:48 | XMS_ITS | Encounter Summary ---
Author Organization [facility] Address [address] [place] [address] Care Team Providers Care Driller Operator Name Role Phone Bettye Gonzales MD Unavailable + Bonny Cooley MD Primary Care Provider Antony Chakraborty MD Unavailable Mateo Cheema MD Unavailable Ermias Colón MD Unavailable Bonny Cooley MD Unavailable [phone] Pam Hernandez MD Unavailable [phone] Lázaro Horowtiz MD Unavailable Jaime Grover MD Unavailable [phone] Toni Sheth MD Unavailable Toni Sheth MD Unavailable Bertram Elizabeth MD Unavailable Bonny Cooley MD Unavailable [phone] Aminata Youssef MD Primary Care Provider Bertram Elizabeth MD Unavailable Alex Johnson MD Unavailable [phone] Bonny Cooley MD Unavailable [phone] Bertram Elizabeth MD Unavailable [phone] Bertram Elizabeth MD Unavailable [phone] Alex Johnson MD Unavailable [phone] Alex Johnson MD Unavailable [phone] Encounter Details Date Type Department Care Team (Late st Contact Info) Description 07/02/2020 MyC Medical Advice [facility] [address] [facility] 5th [place] [address] Adriane Parish RN Social History [...] Sex Assigned at Female 08/28/2018 12:23 AM CORK INSULATOR HELPER Legal Sex Female 4:46 AM CORK INSULATOR HELPER Gender Identity Female 08/28/2018 12:23 AM CORK INSULATOR HELPER Sexual Orientation Straight 10/11/2019 2: 51 PM CORK INSULATOR HELPER COVID-19 Exposure Response Date Recorded In the last month, have you been in contact with someone who was confirmed or suspected to have Coronavirus / COVID-19? No / Unsure 06/23/2020 10:33 AM CORK INSULATOR HELPER documented as of this encounter Plan of Treatment Upcoming Encounters Date Type Department Care Team (Late st Contact Info) Description 04/25/2025 1:30 PM CDT Office Visit [facility] [address] [address] Alex Johnson MD [address] [place] [address] documented as of this encounter Visit Diagnoses Not on filedocumented in this encounter Additional Health Concerns Infection Onset Date Last Indicated Resolved Time COVID-19 06/23/2020 06/23/2020 07/14/2020 11:4 0 PM CORK INSULATOR HELPER Recovered COVID 07/08/2020 07/08/2020 09/21/2020 1 1:39 PM CORK INSULATOR HELPER Assessment Noted Time PHQ-9 Depression Total Score: 11 020 2:18 PM CDT documented as of this encounter Care Teams Driller Operator Relationship Specialty Start Date End Date Bonny Cooley MD [address] [place] [address] PCP - General Family Practice 09/30/15 06/02/21 Aminata Youssef MD [facility] & [address] [address] PCP - General Internal Medicine 06/03/21 Bettye Gonzales MD Internal Medicine 04/10/15 Antony Chakraborty MD [address] [phone] INTERNAL MEDICINE - ENDOCRINOLOGY, DIABETES & METABOLISM 11/13/15 Mateo Cheema MD [address] [phone] Internal Medicine 08/06/16 Ermias Colón MD [address] [phone] Referring Physician Neurology 09/23/16 Bonny Cooley MD [address] [address] Assigned PCP 10/05/15 07/26/20 Pam Hernandez MD [address] [place] [address] MALLY LYNNE [address] Assigned Behavioral Health Provider 05/30/20 08/01/21 Lázaro Horowitz MD [address] [address] Assigned Rheumatology Provider 05/30/20 07/19/20 Jaime Grover MD [address] [place] [address] Assigned Gastroenterology Provider 05/30/20 11/14/21 Toni Sheth MD [facility] [place], [place] [id number] Assigned Pediatric Specialist Provider 05/30/20 09/07/20 Toni Sheth MD [address] [place] [address] Assigned Surgical Provider 05/30/20 04/18/21 Bertram Elizabteh MD [address] [address] Assigned PCP 07/27/20 04/25/21 Bonny Cooley MD [address] [address] Assigned PCP 04/26/21 08/15/21 Bertram Elizabeth MD [address] [address] Assigned PCP 08/16/21 10/24/21 Alex Johnson MD [address] [place] [address] Assigned Rheumatology Provider 10/18/21 04/15/23 Bonny Cooley MD [address] [place] [address] Assigned PCP 10/25/21 04/02/22 Bertram Elizabeth MD [address] [place] [address] Assigned PCP 04/03/22 07/23/22 Bertram Elizabeth MD [address] [place] [address] Assigned PCP 10/02/22 04/29/23 Alex Johnson MD [address] [place] [address] Rheumatology 10/04/24 Alex Johnson MD [address] [place] [address] Assigned Rheumatology Provider 10/28/24 documented as of this encounter
--- OUTSIDE RECORDS SUMMARY | 2025-03-06 17:48 | XMS_ITS | Encounter Summary ---
Author Organization [facility] Address [address] [place] [address] Care Team Providers Care Solutions Delivery Consultant Name Role Phone Bettye Gonzales MD Unavailable + Bonny Cooley MD Primary Care Provider [phone] Antony Chakraborty MD Unavailable [phone] Mateo Cheema MD Unavailable [phone] Ermias Colón MD Unavailable Pam Hernandez MD Unavailable Jaime Grover MD Unavailable Toni Sheth MD Unavailable Bertram Elizabeth MD Unavailable Bonny Cooley MD Unavailable [phone] Aminata Youssef MD Primary Care Provider Bertram Elizabeth MD Unavailable Alex Johnson MD Unavailable Bonny Cooley MD Unavailable [phone] Bertram Elizabeth MD Unavailable [phone] Bertram Elizabeth MD Unavailable [phone] Alex Jonhson MD Unavailable Alex Johnson MD Unavailable Encounter Details Date Type Department Care Team (Late st Contact Info) Description 02/25/2021 MyC Medical Advice [facility] Rheumatology Clinic [address] [phone] Karen Villagran CMA Social History Tobacco Use [...] Sex Assigned at Female 08/28/2018 12:23 AM INSTRUMENTATION TECH Legal Sex Female 4:46 AM INSTRUMENTATION TECH Gender Identity Female 08/28/2018 12:23 AM INSTRUMENTATION TECH Sexual Orientation Straight 10/11/2019 2: 51 PM INSTRUMENTATION TECH documented as of this encounter Plan of Treatment Upcoming Encounters Date Type Department Care Team (Late st Contact Info) Description 04/25/2025 1:30 PM CDT Office Visit [facility] Specialty Clinic [address] [phone] Alex Johnson MD [address] [place] [address] documented as of this encounter Visit Diagnoses Not on filedocumented in this encounter Additional Health Concerns Assessment Noted Time PHQ-9 Depression Total Score: 11 020 2:18 PM CDT documented as of this encounter Care Teams Solutions Delivery Consultant Relationship Specialty Start Date End Date Bonny Cooley MD [address] [place], [place] [id number] PCP - General Family Practice 09/30/15 06/02/21 Aminata Yosusef MD [facility] & [address] [address] PCP - General Internal Medicine 06/03/21 Bettye Gonzales MD Internal Medicine 04/10/15 Antony Chakraborty MD [address] [address] INTERNAL MEDICINE - ENDOCRINOLOGY, DIABETES & METABOLISM 11/13/15 Mateo Cheema MD [address] [address] MD Internal Medicine 08/06/16 Ermias Colón MD [address] [address] Referring Physician Neurology 09/23/16 Pam Hernandez MD [address] [place] [address] [place] [address] Assigned Behavioral Health Provider 05/30/20 08/01/21 Jaime Grover MD [address] [place] [address] Assigned Gastroenterology Provider 05/30/20 11/14/21 Toni Sheth MD [address] [place] [address] Assigned Surgical Provider 05/30/20 04/18/21 Bertram Elizabeth MD [address] [place] [address] Assigned PCP 07/27/20 04/25/21 Bonny Cooley MD [address] [place] [address] Assigned PCP 04/26/21 08/15/21 Bertram Elizabeth MD [address] [place] [address] Assigned PCP 08/16/21 10/24/21 Alex Johnson MD [address] [place] [address] Assigned Rheumatology Provider 10/18/21 04/15/23 Bonny Cooley MD [address] [place] [address] Assigned PCP 10/25/21 04/02/22 Bertram Elizabeth MD [address] [place] [address] Assigned PCP 04/03/22 07/23/22 Bertram Elizabeth MD [address] [place] [address] Assigned PCP 10/02/22 04/29/23 Alex Johnson MD [address] [place] [address] Rheumatology 10/04/24 Alex Johnson MD [address] [place] [address] Assigned Rheumatology Provider 10/28/24 documented as of this encounter
--- OUTSIDE RECORDS SUMMARY | 2025-03-06 17:48 | XMS_ITS | Encounter Summary ---
Author Organization [facility] Address [address] [place] [address] Care Team Providers Care Clinical Quality Rn Name Role Phone Bettye Gonzales MD Unavailable + Bonny Cooley MD Primary Care Provider [phone] Antony Chakraborty MD Unavailable [phone] Mateo Cheema MD Unavailable Ermias Colón MD Unavailable Bonny Cooley MD Unavailable [phone] Pam Hernandez MD Unavailable [phone] Lázaro Horowitz MD Unavailable Jaime Grover MD Unavailable Toni Sheth MD Unavailable Toni Sheth MD Unavailable Bertram Elizabeth MD Unavailable Bonny Cooley MD Unavailable [phone] Aminata Youssef MD Primary Care Provider Bertram Elizabeth MD Unavailable Alex Johnson MD Unavailable [phone] Bonny Cooley MD Unavailable [phone] Bertram Elizabeth MD Unavailable [phone] Bertram Elizabeth MD Unavailable [phone] Alex Johnson MD Unavailable Alex Johnson MD Unavailable [phone] Encounter Details Date Type Department Care Team (Late st Contact Info) Description 07/02/2020 MyC Medical Advice [facility] Gastroenterology Clinic [address] 4th [place] [address] Jaime Grover MD [address] [place] [address] Social History Tobacco Use Types Packs/Day [...] Assigned at Female 08/28/2018 12:23 AM HEALTH SERVICES COORDINATOR Legal Sex Female 4:46 AM HEALTH SERVICES COORDINATOR Gender Identity Female 08/28/2018 12:23 AM HEALTH SERVICES COORDINATOR Sexual Orientation Straight 10/11/2019 2: 51 PM HEALTH SERVICES COORDINATOR COVID-19 Exposure Response Date Recorded In the last month, have you been in contact with someone who was confirmed or suspected to have Coronavirus / COVID-19? No / Unsure 06/23/2020 10:33 AM HEALTH SERVICES COORDINATOR documented as of this encounter Plan of Treatment Upcoming Encounters Date Type Department Care Team (Late st Contact Info) Description 04/25/2025 1:30 PM CDT Office Visit [facility] Specialty [address] [address] Alex Johnson MD [address] [facility] 88 [place], [place] [address] documented as of this encounter Visit Diagnoses Not on filedocumented in this encounter Additional Health Concerns Infection Onset Date Last Indicated Resolved Time COVID-19 06/23/2020 06/23/2020 07/14/2020 11:4 0 PM HEALTH SERVICES COORDINATOR Recovered COVID 07/08/2020 07/08/2020 09/21/2020 1 1:39 PM HEALTH SERVICES COORDINATOR Assessment Noted Time PHQ-9 Depression Total Score: 11 020 2:18 PM CDT documented as of this encounter Care Teams Clinical Quality Rn Relationship Specialty Start Date End Date Bonny Cooley MD [address] [place] [address] PCP - General Family Practice 09/30/15 06/02/21 Aminata Youssef MD [facility] & [address] [address] PCP - General Internal Medicine 06/03/21 Bettye Gonzales MD Internal Medicine 04/10/15 Antony Chakraborty MD [address] [address] INTERNAL MEDICINE - ENDOCRINOLOGY, DIABETES & METABOLISM 11/13/15 Mateo Cheema MD [address] [address] Internal Medicine 08/06/16 Ermias Colón MD [address] [address] Referring Physician Neurology 09/23/16 Bonny Cooley MD [address] [address] Assigned PCP 10/05/15 07/26/20 Pam Hernandez MD [address] [place] [address] [place] [address] Assigned Behavioral Health Provider 05/30/20 08/01/21 Lázaro Horowitz MD [address] [address] Assigned Rheumatology Provider 05/30/20 07/19/20 Jaime Grover MD [address] [place] [address] Assigned Gastroenterology Provider 05/30/20 11/14/21 Toni Sheth MD [address] [place] [address] [phone] Assigned Pediatric Specialist Provider 05/30/20 09/07/20 Toni Sheth MD [address] [place] [address] Assigned Surgical Provider 05/30/20 04/18/21 Bertram Elizabeth MD [address] [address] Assigned PCP 07/27/20 04/25/21 Bonny Cooley MD [address] [address] Assigned PCP 04/26/21 08/15/21 Bertram Elizabeth MD [address] [address] Assigned PCP 08/16/21 10/24/21 Alex Johnson MD [address] [place] [address] Assigned Rheumatology Provider 10/18/21 04/15/23 Bonny Cooley MD [address] [address] Assigned PCP 10/25/21 04/02/22 Bertram Elizabeth MD [address] [address] Assigned PCP 04/03/22 07/23/22 Bertram Elizabeth MD [address] [address] Assigned PCP 10/02/22 04/29/23 Alex Johnson MD [address] [place] [address] Rheumatology 10/04/24 Alex Johnson MD [address] [place] [address] Assigned Rheumatology Provider 10/28/24 documented as of this encounter
--- OUTSIDE RECORDS SUMMARY | 2025-03-06 17:49 | XMS_ITS | Encounter Summary ---
Author Organization [facility] Address [address] [place] [address] Care Team Providers Care Emergency Department Physician Name Role Phone Bettye Gonzales MD Unavailable + Bonny Cooley MD Primary Care Provider [phone] Antony Chakraborty MD Unavailable Mateo Cheema MD Unavailable Ermias Colón MD Unavailable Bonny Cooley MD Unavailable [phone] Pam Hernandez MD Unavailable [phone] Lázaro Horowitz MD Unavailable Jaime Grover MD Unavailable [phone] Toni Sheth MD Unavailable Toni Sheth MD Unavailable Bertram Elizabeth MD Unavailable Bonny Cooley MD Unavailable [phone] Aminata Youssef MD Primary Care Provider Bertram Elizabeth MD Unavailable Alex Johnson MD Unavailable Bonny Cooley MD Unavailable [phone] Bertram Elizabeth MD Unavailable [phone] Bertram Elizabeth MD Unavailable [phone] Alex Johnson MD Unavailable Alex Johnson MD Unavailable Encounter Details Date Type Department Care Team (Late st Contact Info) Description 06/26/2020 MyC Medical Advice [facility] Gastroenterology Clinic [address]th [place] [address] Jaime Grover MD [address] [place] [address] Social History Tobacco Use Types Packs/Day [...] Assigned at Female 08/28/2018 12:23 AM GARMENT TURNER Legal Sex Female 4:46 AM GARMENT TURNER Gender Identity Female 08/28/2018 12:23 AM GARMENT TURNER Sexual Orientation Straight 10/11/2019 2: 51 PM GARMENT TURNER COVID-19 Exposure Response Date Recorded In the last month, have you been in contact with someone who was confirmed or suspected to have Coronavirus / COVID-19? No / Unsure 06/23/2020 10:33 AM GARMENT TURNER documented as of this encounter Plan of Treatment Upcoming Encounters Date Type Department Care Team (Late st Contact Info) Description 04/25/2025 1:30 PM CDT Office Visit [facility] Specialty [address] [address] Alex Johnson MD 515 [facility] 88 [place], [place] [phone] documented as of this encounter Visit Diagnoses Not on filedocumented in this encounter Additional Health Concerns Infection Onset Date Last Indicated Resolved Time COVID-19 06/23/2020 06/23/2020 07/14/2020 11:4 0 PM GARMENT TURNER Recovered COVID 07/08/2020 07/08/2020 09/21/2020 1 1:39 PM GARMENT TURNER Assessment Noted Time PHQ-9 Depression Total Score: 11 020 2:18 PM CDT documented as of this encounter Care Teams Emergency Department Physician Relationship Specialty Start Date End Date Bonny Cooley MD [address] [place] [address] PCP - General Family Practice 09/30/15 06/02/21 Aminata Youssef MD [facility] & [address] [address] PCP - General Internal Medicine 06/03/21 Bettye Gonzales MD Internal Medicine 04/10/15 Antony Chakraborty MD [address] [address] INTERNAL MEDICINE - ENDOCRINOLOGY, DIABETES & METABOLISM 11/13/15 Mateo Cheema MD [address] [address] Internal Medicine 08/06/16 Ermias Colón MD [address] [address] Referring Physician Neurology 09/23/16 Bonny Cooley MD [address] [address] Assigned PCP 10/05/15 07/26/20 Pam Hernandez MD [address] [place] [address] [place] [address] Assigned Behavioral Health Provider 05/30/20 08/01/21 Lázaro Horowitz MD [address] [address] Assigned Rheumatology Provider 05/30/20 07/19/20 Jaime Grover MD [address] [place] [address] Assigned Gastroenterology Provider 05/30/20 11/14/21 Toni Sheth MD [address] [place] [id number] Assigned Pediatric Specialist Provider 05/30/20 09/07/20 Toni Sheth MD [address] [place] [address] Assigned Surgical Provider 05/30/20 04/18/21 Bertram Elizabeth MD [address] [address] Assigned PCP 07/27/20 04/25/21 Bonny Cooley MD [address] [address] Assigned PCP 04/26/21 08/15/21 Bertram Elizabeth MD [address] [address] Assigned PCP 08/16/21 10/24/21 Alex Johnson MD [address] [place] [address] Assigned Rheumatology Provider 10/18/21 04/15/23 Bonny Cooley MD [address] [address] Assigned PCP 10/25/21 04/02/22 Bertram Elizabeth MD [address] [address] Assigned PCP 04/03/22 07/23/22 Bertram Elizabeth MD [address] [address] Assigned PCP 10/02/22 04/29/23 Alex Johnson MD [address] [place] [address] Rheumatology 10/04/24 Alex Johnson MD [address] [place] [address] Assigned Rheumatology Provider 10/28/24 documented as of this encounter
--- OUTSIDE RECORDS SUMMARY | 2025-03-06 17:49 | XMS_ITS | Encounter Summary ---
Author Organization [facility] Address [address] [place] [address] Care Team Providers Care Yard Conductor Name Role Phone Bettye Gonzales MD Unavailable + Bonny Cooley MD Primary Care Provider Antony Chakraborty MD Unavailable Mateo Cheema MD Unavailable Ermias Colón MD Unavailable Bonny Cooley MD Unavailable [phone] Pam Hernandez MD Unavailable [phone] Lázaro Horowitz MD Unavailable Jaime Grover MD Unavailable Toni Sheth MD Unavailable Toni Sheth MD Unavailable Bertram Elizabeth MD Unavailable Bonny Cooley MD Unavailable [phone] Aminata Youssef MD Primary Care Provider Bertram Elizabeth MD Unavailable Alex Johnson MD Unavailable Bonny Cooley MD Unavailable [phone] Bertram Elizabeth MD Unavailable [phone] Bertram Elizabeth MD Unavailable Alex Johnson MD Unavailable Alex Johnson MD Unavailable Reason for Visit * Reason Onset Date Comments Refill Request 12/02/2019 CELECOXIB 100MG CAPS Encounter Details Date Type Department Care Team (Late st Contact Info) Description 12/02/[address] [address] Bonny Cooley MD [address] [phone] Refill Request (CELECOXIB 100MG CAPS ) Social [...] Sex Assigned at Female 08/28/2018 12:23 AM ENOLOGIST Legal Sex Female 4:46 AM ENOLOGIST Gender Identity Female 08/28/2018 12:23 AM ENOLOGIST Sexual Orientation Straight 10/11/2019 2: 51 PM ENOLOGIST COVID-19 Exposure Response Date Recorded In the [...] CDT Telephone Visit with Pam Hernandez MD [facility] [address] [place] [phone] NSAID Medications Failed - 12/02/2019 4:45 [...] PM CDT Office Visit [facility] Specialty [address] [place] [phone] Alex Johnson MD [address] [place] [address] 88 [place], [place] [address] documented as of this encounter Visit Diagnoses Diagnosis Osteoarthritis, unspecified osteoarthritis type, unspecified site documented in this encounter Additional Health Concerns Infection Onset Date Last Indicated Resolved Time COVID-19 06/23/2020 06/23/2020 07/14/2020 11:4 0 PM ENOLOGIST Recovered COVID 07/08/2020 07/08/2020 09/21/2020 1 1:39 PM ENOLOGIST Assessment Noted Time PHQ-9 Depression Total Score: 15 020 2:41 PM ENOLOGIST documented as of this encounter Care Teams Yard Conductor Relationship Specialty Start Date End Date Bonny Cooley MD [address] [place] [address] PCP - General Family Practice 09/30/15 06/02/21 Aminata Youssef MD [facility] [address] [place] [address] PCP - General Internal Medicine 06/03/21 Bettye Gonzales MD Internal Medicine 04/10/15 Antony Chakraborty MD 420 [facility] [address] [place] [address] INTERNAL MEDICINE - ENDOCRINOLOGY, DIABETES & METABOLISM 11/13/15 Mateo Cheema MD [address] [address] Internal Medicine 08/06/16 Ermias Colón MD [address] [address] Referring Physician Neurology 09/23/16 Bonny Cooley MD [address] [address] Assigned PCP 10/05/15 07/26/20 Pam Hernandez MD [address] [place] [address] [place] [address] Assigned Behavioral Health Provider 05/30/20 08/01/21 Lázaro Horowitz MD [facility] [address] [place] [address] Assigned Rheumatology Provider 05/30/20 07/19/20 Jaime Grover MD [address] [place] [address] Assigned Gastroenterology Provider 05/30/20 11/14/21 Toni Sheth MD [address] [place] [address] [phone] Assigned Pediatric Specialist Provider 05/30/20 09/07/20 Toni Sheth MD [address] [place] [address] Assigned Surgical Provider 05/30/20 04/18/21 Bertram Elizabeth MD [facility] [address] [address] Assigned PCP 07/27/20 04/25/21 Bonny Cooley MD [address] [place] [address] Assigned PCP 04/26/21 08/15/21 Bertram Elizabeth MD [address] [place] [address] Assigned PCP 08/16/21 10/24/21 Alex Johnson MD [address] [place] [address] Assigned Rheumatology Provider 10/18/21 04/15/23 Bonny Cooley MD [address] [place] [address] Assigned PCP 10/25/21 04/02/22 Bertram Elizabeth MD [address] [place] [address] Assigned PCP 04/03/22 07/23/22 Bertram Elizabeth MD [address] [place] [address] Assigned PCP 10/02/22 04/29/23 Alex Johnson MD [address] [place] [address] Rheumatology 10/04/24 Alex Johnson MD [address] [place] [address] Assigned Rheumatology Provider 10/28/24 documented as of this encounter
--- OUTSIDE RECORDS SUMMARY | 2025-03-06 17:49 | XMS_ITS | Encounter Summary ---
Author Organization [facility] Address [address] [place] [address] Care Team Providers Care Washing Machine Loader Name Role Phone Bettye Gonzales MD Unavailable + Bonny Cooley MD Primary Care Provider Antony Chakraborty MD Unavailable Mateo Cheema MD Unavailable Ermias Colón MD Unavailable Bonny Cooley MD Unavailable [phone] Pam Hernandez MD Unavailable [phone] Lázaro Horowitz MD Unavailable Jaime Grover MD Unavailable Toni Sheth MD Unavailable Toni Sheth MD Unavailable Bertram Elizabeth MD Unavailable Bonny Cooley MD Unavailable [phone] Aminata Youssef MD Primary Care Provider Bertram Elizabeth MD Unavailable Alex Johnson MD Unavailable Bonny Cooley MD Unavailable [phone] Bertram Elizabeth MD Unavailable [phone] Bertram Elizabeth MD Unavailable [phone] Alxe Johnson MD Unavailable Alex Johnson MD Unavailable [phone] Encounter Details Date Type Department Care Team (Late st Contact Info) Description 07/04/2020 MyC Medical Advice [facility]ology [facility] [address] [place] [address] Jaime Grover MD [address] [place] [address] Social History Tobacco Use Types Packs/Day Years Used Date Smoking Tobacco: Former Cigarettes 2 3 0 04/23/1976 - 12/17/1977 Smokeless Tobacco: Never Alcohol Use Standard Drinks/Week Comments No 0 (1 standard drink = 0.6 oz pur e alcohol) PHQ-2 Answer Date Recorded PHQ-2 Score 4 01/31/2020 Comments No Sex and Gender Information Value Date Recorded Sex Assigned at Female 08/28/2018 12:23 AM CERTIFIED ALCOHOL AND DRUG COUNSELOR Legal Sex Female 4:46 AM CERTIFIED ALCOHOL AND DRUG COUNSELOR Gender Identity Female 08/28/2018 12:23 AM CERTIFIED ALCOHOL AND DRUG COUNSELOR Sexual Orientation Straight 10/11/2019 2: 51 PM CERTIFIED ALCOHOL AND DRUG COUNSELOR COVID-19 Exposure Response Date Recorded In the last month, have you been in contact with someone who was confirmed or suspected to have Coronavirus / COVID-19? No / Unsure 06/23/2020 10:33 AM CERTIFIED ALCOHOL AND DRUG COUNSELOR documented as of this encounter Plan of Treatment Upcoming Encounters Date Type Department Care Team (Late st Contact Info) Description 04/25/2025 1:30 PM CDT Office Visit [facility] Specialty [address] [address] Alex Johnson MD 515 [facility] 88 [place], [place] [address] documented as of this encounter Visit Diagnoses Not on filedocumented in this encounter Additional Health Concerns Infection Onset Date Last Indicated Resolved Time COVID-19 06/23/2020 06/23/2020 07/14/2020 11:4 0 PM CERTIFIED ALCOHOL AND DRUG COUNSELOR Recovered COVID 07/08/2020 07/08/2020 09/21/2020 1 1:39 PM CERTIFIED ALCOHOL AND DRUG COUNSELOR Assessment Noted Time PHQ-9 Depression Total Score: 11 020 2:18 PM CDT documented as of this encounter Care Teams Washing Machine Loader Relationship Specialty Start Date End Date Bonny Cooley MD [address] [place] [address] PCP - General Family Practice 09/30/15 06/02/21 Aminata Youssef MD [facility] & [address] [address] PCP - General Internal Medicine 06/03/21 Bettye Gonzales MD Internal Medicine 04/10/15 Antony Chakraborty MD [address] [address] INTERNAL MEDICINE - ENDOCRINOLOGY, DIABETES & METABOLISM 11/13/15 Mateo Cheema MD [address] [address] Internal Medicine 08/06/16 Ermias Colón MD [address] [address] Referring Physician Neurology 09/23/16 Bonny Cooley MD [address] [address] Assigned PCP 10/05/15 07/26/20 Pam Hernandez MD [address] [place] [address] [place] [address] Assigned Behavioral Health Provider 05/30/20 08/01/21 Lázaro Horowitz MD [address] [address] Assigned Rheumatology Provider 05/30/20 07/19/20 Jaime Grover MD [address] [place] [address] Assigned Gastroenterology Provider 05/30/20 11/14/21 Toni Sheth MD [address] [place] [address] [id number] Assigned Pediatric Specialist Provider 05/30/20 09/07/20 Toni Sheth MD [address] [place] [address] Assigned Surgical Provider 05/30/20 04/18/21 Bertram Elizabeth MD [address] [address] Assigned PCP 07/27/20 04/25/21 Bonny Cooley MD [address] [address] Assigned PCP 04/26/21 08/15/21 Bertram Elizabeth MD [address] [address] Assigned PCP 08/16/21 10/24/21 Alex Johnson MD [address] [place] [address] Assigned Rheumatology Provider 10/18/21 04/15/23 Bonny Cooley MD [address] [address] Assigned PCP 10/25/21 04/02/22 Bertram Elizabeth MD [address] [address] Assigned PCP 04/03/22 07/23/22 Bertram Elizabeth MD [address] [address] Assigned PCP 10/02/22 04/29/23 Alex Johnson MD [address] [place] [address] Rheumatology 10/04/24 Alex Johnson MD [address] [place] [address] Assigned Rheumatology Provider 10/28/24 documented as of this encounter
--- OUTSIDE RECORDS SUMMARY | 2025-03-06 17:49 | XMS_ITS | Encounter Summary ---
Author Organization [facility] Address [address] [place] [address] Care Team Providers Care Plastic Surgery Technician Name Role Phone Bettye Gonzales MD Unavailable + Bonny Cooley MD Primary Care Provider Antony Chakraborty MD Unavailable Mateo Cheema MD Unavailable [phone] Ermias Colón MD Unavailable Bonny Cooley MD Unavailable [phone] Pam Hernandez MD Unavailable [phone] Lázaro Horowitz MD Unavailable Jaime Grover MD Unavailable Toni Sheth MD Unavailable Toni Sheth MD Unavailable Bertram Elizabeth MD Unavailable Bonny Cooley MD Unavailable [phone] Aminata Youssef MD Primary Care Provider Bertram Elizabeth MD Unavailable Alex Johnson MD Unavailable Bonny Cooley MD Unavailable [phone] Bertram Elizabeth MD Unavailable [phone] Bertram Elizabeth MD Unavailable [phone] Alex Johnson MD Unavailable Alex Johnson MD Unavailable Encounter Details Date Type Department Care Team (Late st Contact Info) Description 06/09/[address] [facility] Gastro[facility]ology Clinic [address] [address] Jaime Grover MD [address] [place] [address] Social History Tobacco Use Types Packs/Day Years Used Date Smoking Tobacco: Former Cigarettes 2 3 0 04/23/1976 - 12/17/1977 Smokeless Tobacco: Never Alcohol Use Standard Drinks/Week Comments No 0 (1 standard drink = 0.6 oz pur e alcohol) PHQ-2 Answer Date Recorded PHQ-2 Score 4 01/31/2020 Comments No Sex and Gender Information Value Date Recorded Sex Assigned at Female 08/28/2018 12:23 AM ENTERPRISE RECORDS ANALYST Legal Sex Female 4:46 AM ENTERPRISE RECORDS ANALYST Gender Identity Female 08/28/2018 12:23 AM ENTERPRISE RECORDS ANALYST Sexual Orientation Straight 10/11/2019 2: 51 PM ENTERPRISE RECORDS ANALYST COVID-19 Exposure Response Date Recorded In [facility] [address] [address] Alex Johnson MD 515 [facility] 88 [place], [place] [address] documented as of this encounter Visit Diagnoses Not on filedocumented in this encounter Additional Health Concerns Infection Onset Date Last Indicated Resolved Time COVID-19 06/23/2020 06/23/2020 07/14/2020 11:4 0 PM ENTERPRISE RECORDS ANALYST Recovered COVID 07/08/2020 07/08/2020 09/21/2020 1 1:39 PM ENTERPRISE RECORDS ANALYST Assessment Noted Time PHQ-9 Depression Total Score: 11 020 2:18 PM CDT documented as of this encounter Care Teams Plastic Surgery Technician Relationship Specialty Start Date End Date Bonny Cooley MD [address] [place] [address] PCP - General Family Practice 09/30/15 06/02/21 Aminata Youssef MD [facility] & [address] [address] PCP - General Internal Medicine 06/03/21 Bettye Gonzales MD Internal Medicine 04/10/15 Antony Chakraborty MD [address] [address] INTERNAL MEDICINE - ENDOCRINOLOGY, DIABETES & METABOLISM 11/13/15 Mateo Cheema MD [address] [address] Internal Medicine 08/06/16 Ermias Colón MD [address] [address] Referring Physician Neurology 09/23/16 Bonny Cooley MD [address] [address] Assigned PCP 10/05/15 07/26/20 Pam Hernandez MD [address] [place] [address] [place] [address] Assigned Behavioral Health Provider 05/30/20 08/01/21 Lázaro Horowitz MD [address] [address] Assigned Rheumatology Provider 05/30/20 07/19/20 Jaime Grover MD [address] [place] [address] Assigned Gastroenterology Provider 05/30/20 11/14/21 Toni Sheth MD [address] [place] [address] Assigned Pediatric Specialist Provider 05/30/20 09/07/20 Toni Sheth MD [address] [place] [address] Assigned Surgical Provider 05/30/20 04/18/21 Bertram Elizabeth MD [address] [address] Assigned PCP 07/27/20 04/25/21 Bonny Cooley MD [address] [address] Assigned PCP 04/26/21 08/15/21 Bertram Elizabeth MD [address] [address] Assigned PCP 08/16/21 10/24/21 Alex Johnson MD [address] [place] [address] Assigned Rheumatology Provider 10/18/21 04/15/23 Bonny Cooley MD [address] [address] Assigned PCP 10/25/21 04/02/22 Bertram Elizabeth MD [address] [address] Assigned PCP 04/03/22 07/23/22 Bertram Elizabeth MD [address] [address] Assigned PCP 10/02/22 04/29/23 Alex Johnson MD [address] [place] [address] Rheumatology 10/04/24 Alex Johnson MD [address] [place] [address] Assigned Rheumatology Provider 10/28/24 documented as of this encounter
--- OUTSIDE RECORDS SUMMARY | 2025-03-06 17:49 | XMS_ITS | Encounter Summary ---
Author Organization [facility] Address [address] [place] [address] Care Team Providers Care Halal Butcher Name Role Phone Bettye Gonzales MD Unavailable + Bonny Cooley MD Primary Care Provider [phone] Antony Chakraborty MD Unavailable [phone] Mateo Cheema MD Unavailable [phone] Ermias Colón MD Unavailable Pam Hernandez MD Unavailable [phone] Jaime Grover MD Unavailable Toni Sheth MD Unavailable Bertram Elizabeth MD Unavailable Bonny Cooley MD Unavailable [phone] Aminata Youssef MD Primary Care Provider Bertram Elizabeth MD Unavailable Alex Johnson MD Unavailable [phone] Bonny Cooley MD Unavailable [phone] Bertram Elizabeth MD Unavailable Bertram Elizabeth MD Unavailable [phone] Alex Johnson MD Unavailable Alex Johnson MD Unavailable Encounter Details Date Type Department Care Team (Late st Contact Info) Description 09/23/2020 MyC Medical Advice [facility] Rhe[facility]ology [facility] [address] [address] Toni Del Angel MD [facility] 420 [facility] 284 [place] [address] Social History Tobacco Use Types [...] Sex Assigned at Female 08/28/2018 12:23 AM TEACHER ADULT EDUCATION Legal Sex Female 4:46 AM TEACHER ADULT EDUCATION Gender Identity Female 08/28/2018 12:23 AM TEACHER ADULT EDUCATION Sexual Orientation Straight 10/11/2019 2: 51 PM TEACHER ADULT EDUCATION documented as of this encounter Plan of Treatment Upcoming Encounters Date Type Department Care Team (Late st Contact Info) Description 04/25/2025 1:30 PM CDT Office Visit [facility] Special[facility] [address] [address] Alex Johnson MD [address] [place] [address] documented as of this encounter Visit Diagnoses Not on filedocumented in this encounter Additional Health Concerns Assessment Noted Time PHQ-9 Depression Total Score: 11 020 2:18 PM CDT documented as of this encounter Care Teams Halal Butcher Relationship Specialty Start Date End Date Bonny Cooley MD [address] [place] [address] PCP - General Family Practice 09/30/15 06/02/21 Aminata Youssef MD [facility] & [facility] [address] [place] [address] PCP - General Internal Medicine 06/03/21 Bettye Gonzales MD Internal Medicine 04/10/15 Antony Chakraborty MD [address] [address] MD INTERNAL MEDICINE - ENDOCRINOLOGY, DIABETES & METABOLISM 11/13/15 Mateo Cheema MD [address] [address] Internal Medicine 08/06/16 Ermias Colón MD [address] [address] Referring Physician Neurology 09/23/16 Pam Hernandez MD [address] [place] [address] [address] [place] [id number] Assigned Behavioral Health Provider 05/30/20 08/01/21 Jaime Grover MD 9[address] [place] [address] Assigned Gastroenterology Provider 05/30/20 11/14/21 Toni Sheth MD [address] [place] [address] Assigned Surgical Provider 05/30/20 04/18/21 Bertram Elizabeth MD [address] [address] Assigned PCP 07/27/20 04/25/21 Bonny Cooley MD [address] [address] Assigned PCP 04/26/21 08/15/21 Bertram Elizabeth MD [address] [place] [address] Assigned PCP 08/16/21 10/24/21 Alex Johnson MD [address] [place] [address] Assigned Rheumatology Provider 10/18/21 04/15/23 Bonny Cooley MD [address] [place] [address] Assigned PCP 10/25/21 04/02/22 Bertram Elizabeth MD [address] [place] [address] Assigned PCP 04/03/22 07/23/22 Bertram Elizabeth MD [address] [address] Assigned PCP 10/02/22 04/29/23 Alex Johnson MD [address] [place] [address] MD Rheumatology 10/04/24 Alex Johnson MD [address] [place] [address] Assigned Rheumatology Provider 10/28/24 documented as of this encounter
--- OUTSIDE RECORDS SUMMARY | 2025-03-06 17:49 | XMS_ITS | Encounter Summary ---
Author Organization [facility] Address [address] [place] [address] Care Team Providers Care Drywall Hanger Name Role Phone Bettye Gonzales MD Unavailable + Bonny Cooley MD Primary Care Provider [phone] Antony Chakraborty MD Unavailable Mateo Cheema MD Unavailable Ermias Colón MD Unavailable Bonny Cooley MD Unavailable [phone] Pam Hernandez MD Unavailable [phone] Lázaro Horowitz MD Unavailable Jaime Grover MD Unavailable [phone] Toni Sheth MD Unavailable Toni Sheth MD Unavailable Bertram Elizabeth MD Unavailable Bonny Cooley MD Unavailable [phone] Aminata Youssef MD Primary Care Provider Bertram Elizabeth MD Unavailable Alex Johnson MD Unavailable [phone] Bonny Cooley MD Unavailable [phone] Bertram Elizabeth MD Unavailable [phone] Bertram Elizabeth MD Unavailable [phone] Alex Johnson MD Unavailable Alex Johnson MD Unavailable [phone] Encounter Details Date Type Department Care Team (Late st Contact Info) Description 06/25/2020 MyC Medical Advice [facility]astroenterology Clinic [address] [place] [address] Jaime Grover MD [address] [place] [address] Social History Tobacco Use Types Packs/Day Years Used Date Smoking Tobacco: Former Cigarettes 2 3 0 04/23/1976 - 12/17/1977 Smokeless Tobacco: Never Alcohol Use Standard Drinks/Week Comments No 0 (1 standard drink = 0.6 oz pur e alcohol) PHQ-2 Answer Date Recorded PHQ-2 Score 4 01/31/2020 Comments No Sex and Gender Information Value Date Recorded Sex Assigned at Female 08/28/2018 12:23 AM COAL SAMPLER Legal Sex Female 4:46 AM COAL SAMPLER Gender Identity Female 08/28/2018 12:23 AM COAL SAMPLER Sexual Orientation Straight 10/11/2019 2: 51 PM COAL SAMPLER COVID-19 Exposure Response Date Recorded In the last month, have you been in contact with someone who was confirmed or suspected to have Coronavirus / COVID-19? No / Unsure 06/23/2020 10:33 AM COAL SAMPLER documented as of this encounter Plan of Treatment Upcoming Encounters Date Type Department Care Team (Late st Contact Info) Description 04/25/2025 1:30 PM CDT Office Visit [facility] Specialty [address] [address] Alex Johnson MD 515 [facility] 88 [place], [place] [address] documented as of this encounter Visit Diagnoses Not on filedocumented in this encounter Additional Health Concerns Infection Onset Date Last Indicated Resolved Time COVID-19 06/23/2020 06/23/2020 07/14/2020 11:4 0 PM COAL SAMPLER Recovered COVID 07/08/2020 07/08/2020 09/21/2020 1 1:39 PM COAL SAMPLER Assessment Noted Time PHQ-9 Depression Total Score: 11 020 2:18 PM CDT documented as of this encounter Care Teams Drywall Hanger Relationship Specialty Start Date End Date Bonny Cooley MD [address] [place] [address] PCP - General Family Practice 09/30/15 06/02/21 Aminata Youssef MD [facility] & [address] [address] PCP - General Internal Medicine 06/03/21 Bettye Gonzales MD Internal Medicine 04/10/15 Antony Chakraborty MD [address] [address] INTERNAL MEDICINE - ENDOCRINOLOGY, DIABETES & METABOLISM 11/13/15 Mateo Cheema MD [address] [address] Internal Medicine 08/06/16 Ermias Colón MD [address] [address] Referring Physician Neurology 09/23/16 Bonny Cooley MD [address] [address] Assigned PCP 10/05/15 07/26/20 Pam Hernandez MD [address] [place] [address] [place] [address] Assigned Behavioral Health Provider 05/30/20 08/01/21 Lázaro Horowitz MD [address] [address] Assigned Rheumatology Provider 05/30/20 07/19/20 Jaime Grover MD [address] [place] [address] Assigned Gastroenterology Provider 05/30/20 11/14/21 Toni Sheth MD [address] [place] [id number] Assigned Pediatric Specialist Provider 05/30/20 09/07/20 Toni Sheth MD [address] [place] [address] Assigned Surgical Provider 05/30/20 04/18/21 Bertram Elizabeth MD [address] [address] Assigned PCP 07/27/20 04/25/21 Bonny Cooley MD [address] [address] Assigned PCP 04/26/21 08/15/21 Bertram Elizabeth MD [address] [address] Assigned PCP 08/16/21 10/24/21 Alex Johnson MD [address] [place] [address] Assigned Rheumatology Provider 10/18/21 04/15/23 Bonny Cooley MD [address] [address] Assigned PCP 10/25/21 04/02/22 Bertram Elizabeth MD [address] [address] Assigned PCP 04/03/22 07/23/22 Bertram Elizabeth MD [address] [address] Assigned PCP 10/02/22 04/29/23 Alex Johnson MD [address] [place] [address] Rheumatology 10/04/24 Alex Johnson MD [address] [place] [address] Assigned Rheumatology Provider 10/28/24 documented as of this encounter
--- OUTSIDE RECORDS SUMMARY | 2025-03-06 17:49 | XMS_ITS | Encounter Summary ---
Author Organization [facility] Address [address] [place] [address] Care Team Providers Care Formwork Carpenter Name Role Phone Bettye Gonzales MD Unavailable + Bonny Cooley MD Primary Care Provider [phone] Antony Chakraborty MD Unavailable [phone] Mateo Cheema MD Unavailable Ermias Colón MD Unavailable Bonny Cooley MD Unavailable [phone] Pam Hernandez MD Unavailable [phone] Lázaro Horowitz MD Unavailable Jaime Grover MD Unavailable Toni Sheth MD Unavailable Toni Sheth MD Unavailable Bertram Elizabeth MD Unavailable Bonny Cooley MD Unavailable [phone] Aminata Youssef MD Primary Care Provider Bertram Elizabeth MD Unavailable [phone] Alex Johnson MD Unavailable [phone] Bonny Cooley MD Unavailable [phone] Bertram Elizabeth MD Unavailable Bertram Elizabeth MD Unavailable [phone] Alex Johnson MD Unavailable Alex Johnson MD Unavailable Encounter Details Date Type Department Care Team (Late st Contact Info) Description 06/26/2020 MyC Medical Advice [facility] Endocrinology Clinic [address] 3rd [place] [address] Mateo Cheema MD [address] [place] [address] [address] [place] [address] Social History Tobacco Use Types [...] Sex Assigned at Female 08/28/2018 12:23 AM SOFTWARE RELIABILITY ENGINEER Legal Sex Female 4:46 AM SOFTWARE RELIABILITY ENGINEER Gender Identity Female 08/28/2018 12:23 AM SOFTWARE RELIABILITY ENGINEER Sexual Orientation Straight 10/11/2019 2: 51 PM SOFTWARE RELIABILITY ENGINEER COVID-19 Exposure Response Date Recorded In the last month, have you been in contact with someone who was confirmed or suspected to have Coronavirus / COVID-19? No / Unsure 06/23/2020 10:33 AM SOFTWARE RELIABILITY ENGINEER documented as of this encounter Plan of Treatment Upcoming Encounters Date Type Department Care Team (Late st Contact Info) Description 04/25/2025 1:30 PM CDT Office Visit [facility] Special[facility] Clinic [address] [address] Alex Johnson MD 515 [facility] 88 [place], [place] [address] documented as of this encounter Visit Diagnoses Not on filedocumented in this encounter Additional Health Concerns Infection Onset Date Last Indicated Resolved Time COVID-19 06/23/2020 06/23/2020 07/14/2020 11:4 0 PM SOFTWARE RELIABILITY ENGINEER Recovered COVID 07/08/2020 07/08/2020 09/21/2020 1 1:39 PM SOFTWARE RELIABILITY ENGINEER Assessment Noted Time PHQ-9 Depression Total Score: 11 020 2:18 PM CDT documented as of this encounter Care Teams Formwork Carpenter Relationship Specialty Start Date End Date Bonny Cooley MD [address] [place] [address] PCP - General Family Practice 09/30/15 06/02/21 Aminata Youssef MD [facility] & [address] [address] PCP - General Internal Medicine 06/03/21 Bettye Gonzales MD Internal Medicine 04/10/15 Antony Chakraborty MD [address] [address] INTERNAL MEDICINE - ENDOCRINOLOGY, DIABETES & METABOLISM 11/13/15 Mateo Cheema MD [address] [address] Internal Medicine 08/06/16 Emrias Colón MD [address] [address] Referring Physician Neurology 09/23/16 Bonny Cooley MD [address] [address] Assigned PCP 10/05/15 07/26/20 Pam Hernandez MD [address] [place] [address] [place] [address] Assigned Behavioral Health Provider 05/30/20 08/01/21 Lázaro Horowitz MD [address] [address] Assigned Rheumatology Provider 05/30/20 07/19/20 Jaime Grover MD [address] [place] [address] Assigned Gastroenterology Provider 05/30/20 11/14/21 Toni Sheth MD [address] [place] [address] Assigned Pediatric Specialist Provider 05/30/20 09/07/20 Toni Sheth MD [address] [place] [address] Assigned Surgical Provider 05/30/20 04/18/21 Bertram Elizabeth MD [address] [address] Assigned PCP 07/27/20 04/25/21 Bonny Cooley MD [address] [address] Assigned PCP 04/26/21 08/15/21 Bertram Elizabeth MD [address] [address] Assigned PCP 08/16/21 10/24/21 Alex Johnson MD [address] [place] [address] Assigned Rheumatology Provider 10/18/21 04/15/23 Bonny Cooley MD [address] [address] Assigned PCP 10/25/21 04/02/22 Bertram Elizabeth MD [address] [address] Assigned PCP 04/03/22 07/23/22 Bertram Elizabeth MD [address] [address] Assigned PCP 10/02/22 04/29/23 Alex Johnson MD [address] [place] [address] Rheumatology 10/04/24 Alex Johnson MD [address] [place] [address] Assigned Rheumatology Provider 10/28/24 documented as of this encounter
--- OUTSIDE RECORDS SUMMARY | 2025-03-06 17:49 | XMS_ITS | Encounter Summary ---
Author Organization [facility] Address [address] [place] [address] Care Team Providers Care Hazardous Materials Driver Name Role Phone Bettye Gonzales MD Unavailable + Antony Chakraborty MD Unavailable [phone] Mateo Cheema MD Unavailable Ermias Colón MD Unavailable Aminata Youssef MD Primary Care Provider Alex Johnson MD Unavailable Alex Johnson MD Unavailable [phone] Encounter Details Date Type Department Care Team (Late st Contact Info) Description 11/30/2024 [facility] [address] [address] Alex Johnson MD [address] [place] [address] Social History Tobacco Use Types Packs/Day [...] Sex Assigned at Female 08/28/2018 12:23 AM OPTICAL ADVISOR Legal Sex Female 4:46 AM OPTICAL ADVISOR Gender Identity Female 08/28/2018 12:23 AM OPTICAL ADVISOR Sexual Orientation Straight 10/11/2019 2: 51 PM OPTICAL ADVISOR documented as of this encounter Plan of Treatment Upcoming Encounters Date Type Department Care Team (Late st Contact Info) Description 04/25/2025 1:30 PM CDT Office Visit [facility] [address] [phone] Alex Johnson MD [address] [place] [address] [id number] documented as of this encounter Visit Diagnoses Not on filedocumented in this encounter Additional Health Concerns Assessment Noted Time PHQ-9 Depression Total Score: 11 020 2:18 PM CDT documented as of this encounter Care Teams Hazardous Materials Driver Relationship Specialty Start Date End Date Aminata Yuossef MD [facility] [address] [place] [address] PCP - General Internal Medicine 06/03/21 Bettye Gonzales MD Internal Medicine 04/10/15 Antony Chakraborty MD [address] [place] [address] [id number] INTERNAL MEDICINE - ENDOCRINOLOGY, DIABETES & METABOLISM 11/13/15 Mateo Cheema MD [address] [address] Internal Medicine 08/06/16 Ermias Colón MD [address] [place] [address] Referring Physician Neurology 09/23/16 Alex Johnson MD [address] [place] [address] Rheumatology 10/04/24 Alex Johnson MD [address] [place] [address] Assigned Rheumatology Provider 10/28/24 documented as of this encounter
--- OUTSIDE RECORDS SUMMARY | 2025-03-06 17:49 | XMS_ITS | Encounter Summary ---
Author Organization [facility] Address [address] [place] [address] Care Team Providers Care Residential Construction Instructor Name Role Phone Bettye Gonzales MD Unavailable + Bonny Cooley MD Primary Care Provider Antony Chakraborty MD Unavailable [phone] Mateo Cheema MD Unavailable Ermias Colón MD Unavailable Bonny Cooley MD Unavailable [phone] Pam Hernandez MD Unavailable [phone] Lázaro Horowitz MD Unavailable Jaime Grover MD Unavailable Toni Sheth MD Unavailable Toni Sheth MD Unavailable Bertram Elizabeth MD Unavailable Bonny Cooley MD Unavailable [phone] Aminata Youssef MD Primary Care Provider [phone] Bertram Elizabeth MD Unavailable [phone] Alex Johnson MD Unavailable [phone] Bonny Cooley MD Unavailable [phone] Bertram Elizabeth MD Unavailable [phone] Bertram Elizabeth MD Unavailable [phone] Alex Johnson MD Unavailable Alex Johnson MD Unavailable [phone] Encounter Details Date Type Department Care Team (Late st Contact Info) Description 07/11/2020 MyC Medical Advice [facility] [address] [place] [phone] Bonny Cooley MD [address] [id number] Social History Tobacco Use Types Packs/Day Years Used Date Smoking Tobacco: Former Cigarettes 2 3 0 04/23/1976 - 12/17/1977 Smokeless Tobacco: Never Alcohol Use Standard Drinks/Week Comments No 0 (1 standard drink = 0.6 oz pur e alcohol) PHQ-2 Answer Date Recorded PHQ-2 Score 4 01/31/2020 Comments No Sex and Gender Information Value Date Recorded Sex Assigned at Female 08/28/2018 12:23 AM SURGERY SPECIALIST Legal Sex Female 4:46 AM SURGERY SPECIALIST Gender Identity Female 08/28/2018 12:23 AM SURGERY SPECIALIST Sexual Orientation Straight 10/11/2019 2: 51 PM SURGERY SPECIALIST COVID-19 Exposure Response Date Recorded In the last month, have you been in contact with someone who was confirmed or suspected to have Coronavirus / COVID-19? No / Unsure 07/08/2020 8:58 AM SURGERY SPECIALIST documented as of this encounter Plan of Treatment Upcoming Encounters Date Type Department Care Team (Late st Contact Info) Description 04/25/2025 1:30 PM CDT Office Visit [place] [address] [phone] Alex Johnson MD 515 [facility] [address] [place], [place] [phone] documented as of this encounter Visit Diagnoses Not on filedocumented in this encounter Additional Health Concerns Infection Onset Date Last Indicated Resolved Time COVID-19 06/23/2020 06/23/2020 07/14/2020 11:4 0 PM SURGERY SPECIALIST Recovered COVID 07/08/2020 07/08/2020 09/21/2020 1 1:39 PM SURGERY SPECIALIST Assessment Noted Time PHQ-9 Depression Total Score: 11 020 2:18 PM CDT documented as of this encounter Care Teams Residential Construction Instructor Relationship Specialty Start Date End Date Bonny Cooley MD [address] [place] [address] PCP - General Family Practice 09/30/15 06/02/21 Aminata Youssef MD [facility] & [address] [address] PCP - General Internal Medicine 06/03/21 Bettye Gonzales MD Internal Medicine 04/10/15 Antony Chakraborty MD [address] [address] INTERNAL MEDICINE - ENDOCRINOLOGY, DIABETES & METABOLISM 11/13/15 Mateo Cheema MD [address] [address] Internal Medicine 08/06/16 Ermias Colón MD [address] [address] Referring Physician Neurology 09/23/16 Bonny Cooley MD [address] [address] Assigned PCP 10/05/15 07/26/20 Pam Hernandez MD [address] [place] [address] [place] [address] Assigned Behavioral Health Provider 05/30/20 08/01/21 Lázaro Horowitz MD [address] [address] Assigned Rheumatology Provider 05/30/20 07/19/20 Jaime Grover MD [address] [place] [address] Assigned Gastroenterology Provider 05/30/20 11/14/21 Toni Sheth MD [address] [place] [address] Assigned Pediatric Specialist Provider 05/30/20 09/07/20 Toni Sheth MD [address] [place] [address] Assigned Surgical Provider 05/30/20 04/18/21 Bertram Elizabeth MD [address] [address] Assigned PCP 07/27/20 04/25/21 Bonny Cooley MD [address] [address] Assigned PCP 04/26/21 08/15/21 Bertram Elizabeth MD [address] [address] Assigned PCP 08/16/21 10/24/21 Alex Johnson MD [address] [place] [address] Assigned Rheumatology Provider 10/18/21 04/15/23 Bonny Cooley MD [address] [address] Assigned PCP 10/25/21 04/02/22 Bertram Elizabeth MD [address] [address] Assigned PCP 04/03/22 07/23/22 Bertram Elizabeth MD [address] [address] Assigned PCP 10/02/22 04/29/23 Alex Johnson MD [address] [place] [address] Rheumatology 10/04/24 Alex Johnson MD [address] [place] [address] Assigned Rheumatology Provider 10/28/24 documented as of this encounter
--- OUTSIDE RECORDS SUMMARY | 2025-03-06 17:49 | XMS_ITS | Encounter Summary ---
Author Organization [facility] Address [address] [place] [address] Care Team Providers Care Hot Plate Plywood Press Laborer Name Role Phone Bettye Gonzales MD Unavailable + Bonny Cooley MD Primary Care Provider Antony Chakraborty MD Unavailable Mateo Cheema MD Unavailable [phone] Ermias Colón MD Unavailable Bonny Cooley MD Unavailable [phone] Pam Hernandez MD Unavailable [phone] Lázaro Horowitz MD Unavailable Jaime Grover MD Unavailable [phone] Toni Sheth MD Unavailable Toni Sheth MD Unavailable Bertram Elizabeth MD Unavailable [phone] Bonny Cooley MD Unavailable [phone] Aminata Youssef MD Primary Care Provider Bertram Elizabeth MD Unavailable Alex Johnson MD Unavailable [phone] Bonny Cooley MD Unavailable [phone] Bertram Elizabeth MD Unavailable [phone] Bertram Elizabeth MD Unavailable [phone] Alex Johnson MD Unavailable [phone] Alex Johnson MD Unavailable Encounter Details Date Type Department Care Team (Late st Contact Info) Description 06/23/2020 [facility] [address] [place] [phone] Denia Allen Social History Tobacco Use [...] Sex Assigned at Female 08/28/2018 12:23 AM ICE CUTTER Legal Sex Female 4:46 AM ICE CUTTER Gender Identity Female 08/28/2018 12:23 AM ICE CUTTER Sexual Orientation Straight 10/11/2019 2: 51 PM ICE CUTTER COVID-19 Exposure Response Date Recorded In the last month, have you been in contact with someone who was confirmed or suspected to have Coronavirus / COVID-19? No / Unsure 06/23/2020 10:33 AM ICE CUTTER documented as of this encounter Plan of Treatment Upcoming Encounters Date Type Department Care Team (Late st Contact Info) Description 04/25/2025 1:30 PM CDT Office Visit [facility] [address] [place] [address] Alex Johnson MD [address] [place] [address] documented as of this encounter Visit Diagnoses Not on filedocumented in this encounter Additional Health Concerns Infection Onset Date Last Indicated Resolved Time COVID-19 06/23/2020 06/23/2020 07/14/2020 11:4 0 PM ICE CUTTER Recovered COVID 07/08/2020 07/08/2020 09/21/2020 1 1:39 PM ICE CUTTER Assessment Noted Time PHQ-9 Depression Total Score: 11 020 2:18 PM CDT documented as of this encounter Care Teams Hot Plate Plywood Press Laborer Relationship Specialty Start Date End Date Bonny Cooley MD [address] [place] [address] PCP - General Family Practice 09/30/15 06/02/21 Aminata Youssef MD [facility] & [address] [address] PCP - General Internal Medicine 06/03/21 Bettye Gonzales MD Internal Medicine 04/10/15 Antony Chakraborty MD [address] [phone] MD INTERNAL MEDICINE - ENDOCRINOLOGY, DIABETES & METABOLISM 11/13/15 Mateo Cheema MD [address] [place] [address] 867495 Internal Medicine 08/06/16 Ermias Colón MD [address] [address] Referring Physician Neurology 09/23/16 Bonny Cooley MD [address] [address] Assigned PCP 10/05/15 07/26/20 Pam Hernandez MD [address] [place] [address] [place] [address] Assigned Behavioral Health Provider 05/30/20 08/01/21 Lázaro Horowitz MD [facility] [address] [place], [place] 811385 Assigned Rheumatology Provider 05/30/20 07/19/20 Jaime Grover MD [address] [place] [address] Assigned Gastroenterology Provider 05/30/20 11/14/21 [place] [address] [place] [address] Assigned Pediatric Specialist Provider 05/30/20 09/07/20 Toni Sheth MD [address] [place] [address] Assigned Surgical Provider 05/30/20 04/18/21 Bertram Elizabeth MD [address] [address] Assigned PCP 07/27/20 04/25/21 Bonny Cooley MD [address] [address] Assigned PCP 04/26/21 08/15/21 Bertram Elizabeth MD [address] [address] Assigned PCP 08/16/21 10/24/21 Alex Johnson MD [address] [place] [address] Assigned Rheumatology Provider 10/18/21 04/15/23 Bonny Cooley MD [address] [address] Assigned PCP 10/25/21 04/02/22 Bertram Elizabeth MD [address] [address] Assigned PCP 04/03/22 07/23/22 Bertram Elizabeth MD [address] [address] Assigned PCP 10/02/22 04/29/23 Alex Johnson MD [address] [place] [address] Rheumatology 10/04/24 Alex Johnson MD [address] [place] [address] Assigned Rheumatology Provider 10/28/24 documented as of this encounter
--- OUTSIDE RECORDS SUMMARY | 2025-03-06 17:49 | XMS_ITS | Encounter Summary ---
Author Organization [facility] Address [address] [place] [address] Care Team Providers Care Application Penetration Tester Name Role Phone Bettye Gonzales MD Unavailable + Bonny Cooley MD Primary Care Provider [phone] Antony Chakraborty MD Unavailable Mateo Cheema MD Unavailable [phone] Ermias Colón MD Unavailable Bonny Cooley MD Unavailable [phone] Pam Hernandez MD Unavailable [phone] Lázaro Horowitz MD Unavailable Jaime Grover MD Unavailable Toni Sheth MD Unavailable Toni Sheth MD Unavailable Bertram Elizabeth MD Unavailable Bonny Cooley MD Unavailable [phone] Aminata Youssef MD Primary Care Provider [phone] Bertram Elizabeth MD Unavailable [phone] Alex Johnson MD Unavailable Bonny Cooley MD Unavailable [phone] Bertram Elizabeth MD Unavailable [phone] Bertram Elizabeth MD Unavailable [phone] Alex Johnson MD Unavailable [phone] Alex Johnson MD Unavailable [phone] Encounter Details Date Type Department Care Team (Late st Contact Info) Description 07/07/2020 MyC Medical Advice [facility] [address] [address] Dulce Connell RN Social History [...] Sex Assigned at Female 08/28/2018 12:23 AM CAPSULE MACHINE OPERATOR Legal Sex Female 4:46 AM CAPSULE MACHINE OPERATOR Gender Identity Female 08/28/2018 12:23 AM CAPSULE MACHINE OPERATOR Sexual Orientation Straight 10/11/2019 2: 51 PM CAPSULE MACHINE OPERATOR COVID-19 Exposure Response Date Recorded In the last month, have you been in contact with someone who was confirmed or suspected to have Coronavirus / COVID-19? No / Unsure 07/08/2020 8:58 AM CAPSULE MACHINE OPERATOR documented as of this encounter Plan of Treatment Upcoming Encounters Date Type Department Care Team (Late st Contact Info) Description 04/25/2025 1:30 PM CDT Office Visit [facility] [address] [address] Alex Johnson MD [address] [place] [address] documented as of this encounter Visit Diagnoses Not on filedocumented in this encounter Additional Health Concerns Infection Onset Date Last Indicated Resolved Time COVID-19 06/23/2020 06/23/2020 07/14/2020 11:4 0 PM CAPSULE MACHINE OPERATOR Recovered COVID 07/08/2020 07/08/2020 09/21/2020 1 1:39 PM CAPSULE MACHINE OPERATOR Assessment Noted Time PHQ-9 Depression Total Score: 11 020 2:18 PM CDT documented as of this encounter Care Teams Application Penetration Tester Relationship Specialty Start Date End Date Bonny Cooley MD [address] [place] [address] PCP - General Family Practice 09/30/15 06/02/21 Aminata Youssef MD [facility] - [address] [address] PCP - General Internal Medicine 06/03/21 Bettye Gonzales MD MD Internal Medicine 04/10/15 Antony Chakraborty MD [address] [place] [address] [address] INTERNAL MEDICINE - ENDOCRINOLOGY, DIABETES & METABOLISM 11/13/15 Mateo Cheema MD [address] [place] [address] [address] Internal Medicine 08/06/16 Ermias Colón MD [address] [place] [address] [address] Referring Physician Neurology 09/23/16 Bonny Cooley MD [address] [address] Assigned PCP 10/05/15 07/26/20 Pam Hernandez MD [address] [place] [address] [place] [address] Assigned Behavioral Health Provider 05/30/20 08/01/21 Lázaro Horowitz MD [address] [address] Assigned Rheumatology Provider 05/30/20 07/19/20 Jaime Grover MD [address] [place] [address] 472815 Assigned Gastroenterology Provider 05/30/20 11/14/21 Toni Sheth MD [address] [place] [address] [id number] Assigned Pediatric Specialist Provider 05/30/20 09/07/20 Toni Sheth MD [address] [place] [address] Assigned Surgical Provider 05/30/20 04/18/21 Bertram Elizabeth MD [address] [address] Assigned PCP 07/27/20 04/25/21 Bonny Cooley MD [address] [address] Assigned PCP 04/26/21 08/15/21 Bertram Elizabeth MD [address] [address] Assigned PCP 08/16/21 10/24/21 Alex Johnson MD [address] [place] [address] Assigned Rheumatology Provider 10/18/21 04/15/23 Bonny Cooley MD [address] [address] Assigned PCP 10/25/21 04/02/22 Bertram Elizabeth MD [address] [address] Assigned PCP 04/03/22 07/23/22 Bertram Elizabeth MD [address] [address] Assigned PCP 10/02/22 04/29/23 Alex Johnson MD [address] [place] [address] Rheumatology 10/04/24 Alex Johnson MD [address] [place] [address] Assigned Rheumatology Provider 10/28/24 documented as of this encounter
--- OUTSIDE RECORDS SUMMARY | 2025-03-06 17:49 | XMS_ITS | Encounter Summary ---
Author Organization [facility] Address [address] [place] [address] Care Team Providers Care Mud Engineer Name Role Phone Bettye Gonzales MD Unavailable + Bonny Cooley MD Primary Care Provider Antony Chakraborty MD Unavailable [phone] Mateo Cheema MD Unavailable [phone] Ermias Colón MD Unavailable Bonny Cooley MD Unavailable [phone] Pam Hernandez MD Unavailable [phone] Lázaro Horowitz MD Unavailable Jaime Grover MD Unavailable Toni Sheth MD Unavailable Toni Sheth MD Unavailable Bertram Elizabeth MD Unavailable [phone] Bonny Cooley MD Unavailable [phone] Aminata Youssef MD Primary Care Provider Bertram Elizabeth MD Unavailable Alex Johnson MD Unavailable Bonny Cooley MD Unavailable [phone] Bertram Elizabeth MD Unavailable Bertram Elizabeth MD Unavailable [phone] Alex Johnson MD Unavailable Alex Johnson MD Unavailable Encounter Details Date Type Department Care Team (Late st Contact Info) Description 06/18/2020 MyC Medical Advice [facility] [address] [address] Jaime Grover MD [address] [place] [address] Social History Tobacco Use Types Packs/Day [...] Assigned at Female 08/28/2018 12:23 AM CHIEF AIRLINE RADIO OPERATOR Legal Sex Female 4:46 AM CHIEF AIRLINE RADIO OPERATOR Gender Identity Female 08/28/2018 12:23 AM CHIEF AIRLINE RADIO OPERATOR Sexual Orientation Straight 10/11/2019 2: 51 PM CHIEF AIRLINE RADIO OPERATOR COVID-19 Exposure Response Date Recorded In [...] Visit [facility] [address] [address] Alex Johnson MD 515 [facility] 88 [place], [place] [address] documented as of this encounter Visit Diagnoses Not on filedocumented in this encounter Additional Health Concerns Infection Onset Date Last Indicated Resolved Time COVID-19 06/23/2020 06/23/2020 07/14/2020 11:4 0 PM CHIEF AIRLINE RADIO OPERATOR Recovered COVID 07/08/2020 07/08/2020 09/21/2020 1 1:39 PM CHIEF AIRLINE RADIO OPERATOR Assessment Noted Time PHQ-9 Depression Total Score: 11 020 2:18 PM CDT documented as of this encounter Care Teams Mud Engineer Relationship Specialty Start Date End Date Bonny Cooley MD [address] [place] [address] PCP - General Family Practice 09/30/15 06/02/21 Aminata Youssef MD [facility] & [address] [address] PCP - General Internal Medicine 06/03/21 Bettye Gonzales MD Internal Medicine 04/10/15 Antony Chakraborty MD [address] [address] INTERNAL MEDICINE - ENDOCRINOLOGY, DIABETES & METABOLISM 11/13/15 Mateo Cheema MD [address] [address] Internal Medicine 08/06/16 Ermias Colón MD [address] [address] Referring Physician Neurology 09/23/16 Bonny Cooley MD [address] [address] Assigned PCP 10/05/15 07/26/20 Pam Hernandez MD [address] [place] [address] [place] [id number] Assigned Behavioral Health Provider 05/30/20 08/01/21 Lázaro Horowitz MD [address] [address] Assigned Rheumatology Provider 05/30/20 07/19/20 Jaime Grover MD [address] [place] [address] Assigned Gastroenterology Provider 05/30/20 11/14/21 Toni Sheth MD [address] [place] [address] Assigned Pediatric Specialist Provider 05/30/20 09/07/20 Toni Sheth MD [address] [place] [address] Assigned Surgical Provider 05/30/20 04/18/21 Bertram Elizabeth MD [address] [address] Assigned PCP 07/27/20 04/25/21 Bonny Cooley MD [address] [address] Assigned PCP 04/26/21 08/15/21 Bertram Elizabeth MD [address] [address] Assigned PCP 08/16/21 10/24/21 Alex Johnson MD [address] [place] [address] Assigned Rheumatology Provider 10/18/21 04/15/23 Bonny Cooley MD [address] [address] Assigned PCP 10/25/21 04/02/22 Bertram Elizabeth MD [address] [address] Assigned PCP 04/03/22 07/23/22 Bertram Elizabeth MD [address] [address] Assigned PCP 10/02/22 04/29/23 Alex Johnson MD [address] [place] [address] Rheumatology 10/04/24 Alex Johnson MD [address] [place] [address] Assigned Rheumatology Provider 10/28/24 documented as of this encounter
--- OUTSIDE RECORDS SUMMARY | 2025-03-06 17:49 | XMS_ITS | Encounter Summary ---
Author Organization [facility] Address [address] [place] [address] Care Team Providers Care Roller Checker Name Role Phone Bettye Gonzales MD Unavailable + Bonny Cooley MD Primary Care Provider Antony Chakraborty MD Unavailable [phone] Maeto Cheema MD Unavailable Ermias Colón MD Unavailable Bonny Cooley MD Unavailable [phone] Pam Hernandez MD Unavailable [phone] Lázaro Horowitz MD Unavailable Jaime Grover MD Unavailable Toni Sheth MD Unavailable Toni Sheth MD Unavailable Bertram Elizabeth MD Unavailable [phone] Bonny Cooley MD Unavailable [phone] Aminata Youssef MD Primary Care Provider Bertram Elizabeth MD Unavailable [phone] Alex Johnson MD Unavailable [phone] Bonny Cooley MD Unavailable Bertram Elizabeth MD Unavailable [phone] Bertram Elizabeth MD Unavailable [phone] Alex Johnson MD Unavailable [phone] Alex Johnson MD Unavailable Encounter Details Date Type Department Care Team (Late st Contact Info) Description 04/08/2020 MyC Medical Advice [address] [address] [facility] Social History Tobacco Use Types Packs/Day Years Used Date Smoking Tobacco: Former Cigarettes 2 3 0 04/23/1976 - 12/17/1977 Smokeless Tobacco: Never Alcohol Use Standard Drinks/Week Comments No 0 (1 standard drink = 0.6 oz pur e alcohol) PHQ-2 Answer Date Recorded PHQ-2 Score 4 01/31/2020 Comments No Sex and Gender Information Value Date Recorded Sex Assigned at Female 08/28/2018 12:23 AM WORKSHOP MANAGER Legal Sex Female 4:46 AM WORKSHOP MANAGER Gender Identity Female 08/28/2018 12:23 AM WORKSHOP MANAGER Sexual Orientation Straight 10/11/2019 2: 51 PM WORKSHOP MANAGER COVID-19 Exposure Response Date Recorded In the last month, have you been in contact with someone who was confirmed or suspected to have Coronavirus / COVID-19? No / Unsure 04/11/2020 8:09 PM CDT documented as of this encounter Plan of Treatment Upcoming Encounters Date Type Department Care Team (Late st Contact Info) Description 04/25/2025 1:30 PM CDT Office Visit [address] [phone] Alex Johnson MD [address] [place] [address] documented as of this encounter Visit Diagnoses Not on filedocumented in this encounter Additional Health Concerns Infection Onset Date Last Indicated Resolved Time COVID-19 06/23/2020 06/23/2020 07/14/2020 11:4 0 PM WORKSHOP MANAGER Recovered COVID 07/08/2020 07/08/2020 09/21/2020 1 1:39 PM WORKSHOP MANAGER Assessment Noted Time PHQ-9 Depression Total Score: 11 020 2:18 PM CDT documented as of this encounter Care Teams Roller Checker Relationship Specialty Start Date End Date Bonny Cooley MD [address] [place] [address] PCP - General Family Practice 09/30/15 06/02/21 Aminata Youssef MD [facility] & [address] [address] PCP - General Internal Medicine 06/03/21 Bettye Gonzales MD Internal Medicine 04/10/15 Antony Chakraborty MD [address] [address] INTERNAL MEDICINE - ENDOCRINOLOGY, DIABETES & METABOLISM 11/13/15 Mateo Cheema MD [address] [address] Internal Medicine 08/06/16 Ermias Colón MD [address] [address] Referring Physician Neurology 09/23/16 Bonny Cooley MD [address] [address] Assigned PCP 10/05/15 07/26/20 Pam Hernandez MD [address] [place] [address] MALLY LYNNE [address] Assigned Behavioral Health Provider 05/30/20 08/01/21 Lázaro Horowitz MD [address] [address] Assigned Rheumatology Provider 05/30/20 07/19/20 Jaime Grover MD [address] [place] [address] Assigned Gastroenterology Provider 05/30/20 11/14/21 Toni Sheth MD [facility] [place], [place] [id number] Assigned Pediatric Specialist Provider 05/30/20 09/07/20 Toni Sheth MD [address] [place] [address] Assigned Surgical Provider 05/30/20 04/18/21 Bertram Elizabeth MD [address] [address] Assigned PCP 07/27/20 04/25/21 Bonny Cooley MD [address] [address] Assigned PCP 04/26/21 08/15/21 Bertram Elizabeth MD [address] [address] Assigned PCP 08/16/21 10/24/21 Alex Johnson MD [address] [place] [address] Assigned Rheumatology Provider 10/18/21 04/15/23 Bonny Cooley MD [address] [place] [address] Assigned PCP 10/25/21 04/02/22 Bertram Elizabeth MD [address] [place] [address] Assigned PCP 04/03/22 07/23/22 Bertram Elizabeth MD [address] [place] [address] Assigned PCP 10/02/22 04/29/23 Alex Johnson MD [address] [place] [address] Rheumatology 10/04/24 Alex Johnson MD [address] [place] [address] Assigned Rheumatology Provider 10/28/24 documented as of this encounter
--- OUTSIDE RECORDS SUMMARY | 2025-03-06 17:49 | XMS_ITS | Encounter Summary ---
Author Organization [facility] Address [address] [place] [address] Care Team Providers Care Assessment Analyst Name Role Phone Bettye Gonzales MD Unavailable + Bonny Cooley MD Primary Care Provider Antony Chakraborty MD Unavailable Mateo Cheema MD Unavailable [phone] Ermias Colón MD Unavailable Bonny Cooley MD Unavailable [phone] Pam Hernandez MD Unavailable [phone] Lázaro Horowitz MD Unavailable Jaime Grover MD Unavailable [phone] Toni Sheth MD Unavailable Toni Sheth MD Unavailable Bertram Elizabeth MD Unavailable Bonny Coloey MD Unavailable [phone] Aminata Youssef MD Primary Care Provider [phone] Bertram Elizabeth MD Unavailable Alex Johnson MD Unavailable Bonny Cooley MD Unavailable [phone] Bertram Elizabeth MD Unavailable [phone] Bertram Elizabeth MD Unavailable [phone] Alex Johnson MD Unavailable Alex Johnson MD Unavailable [phone] Encounter Details Date Type Department Care Team (Late st Contact Info) Description 06/23/2020 MyC Medical Advice [facility] [address] [place] [address] Jaime Grover MD [address] [place] [address] Social History Tobacco Use Types Packs/Day Years Used Date Smoking Tobacco: Former Cigarettes 2 3 0 04/23/1976 - 12/17/1977 Smokeless Tobacco: Never Alcohol Use Standard Drinks/Week Comments No 0 (1 standard drink = 0.6 oz pur e alcohol) PHQ-2 Answer Date Recorded PHQ-2 Score 4 01/31/2020 Comments No Sex and Gender Information Value Date Recorded Sex Assigned at Female 08/28/2018 12:23 AM REPAIRER RESISTANCE WELDING MACHINES Legal Sex Female 4:46 AM REPAIRER RESISTANCE WELDING MACHINES Gender Identity Female 08/28/2018 12:23 AM REPAIRER RESISTANCE WELDING MACHINES Sexual Orientation Straight 10/11/2019 2: 51 PM REPAIRER RESISTANCE WELDING MACHINES COVID-19 Exposure Response Date Recorded In the last month, have you been in contact with someone who was confirmed or suspected to have Coronavirus / COVID-19? No / Unsure 06/23/2020 10:33 AM REPAIRER RESISTANCE WELDING MACHINES documented as of this encounter Plan of Treatment Upcoming Encounters Date Type Department Care Team (Late st Contact Info) Description 04/25/2025 1:30 PM CDT Office Visit [facility] Specialty [address] [address] Alex Johnson MD [address] [facility] [address] [place], [place] [address] documented as of this encounter Visit Diagnoses Not on filedocumented in this encounter Additional Health Concerns Infection Onset Date Last Indicated Resolved Time COVID-19 06/23/2020 06/23/2020 07/14/2020 11:4 0 PM REPAIRER RESISTANCE WELDING MACHINES Recovered COVID 07/08/2020 07/08/2020 09/21/2020 1 1:39 PM REPAIRER RESISTANCE WELDING MACHINES Assessment Noted Time PHQ-9 Depression Total Score: 11 020 2:18 PM CDT documented as of this encounter Care Teams Assessment Analyst Relationship Specialty Start Date End Date Bonny Cooley MD [address] [place] [address] PCP - General Family Practice 09/30/15 06/02/21 Aminata Youssef MD [facility] & [address] [address] PCP - General Internal Medicine 06/03/21 Bettye Gonzales MD Internal Medicine 04/10/15 Antony Chakraborty MD [address] [address] INTERNAL MEDICINE - ENDOCRINOLOGY, DIABETES & METABOLISM 11/13/15 Mateo Cheema MD [address] [address] Internal Medicine 08/06/16 Ermias Colón MD [address] [address] Referring Physician Neurology 09/23/16 Bonny Cooley MD [address] [address] Assigned PCP 10/05/15 07/26/20 Pam Hernandez MD [address] [place] [address] [place] [address] Assigned Behavioral Health Provider 05/30/20 08/01/21 Lázaro Horowitz MD [address] [address] Assigned Rheumatology Provider 05/30/20 07/19/20 Jaime Grover MD [address] [place] [address] Assigned Gastroenterology Provider 05/30/20 11/14/21 Toni Sheth MD [address] [place] [id number] Assigned Pediatric Specialist Provider 05/30/20 09/07/20 Toni Sheth MD [address] [place] [address] Assigned Surgical Provider 05/30/20 04/18/21 Bertram Elizabeth MD [address] [address] Assigned PCP 07/27/20 04/25/21 Bonny Cooley MD [address] [address] Assigned PCP 04/26/21 08/15/21 Bertram Elizabeth MD [address] [address] Assigned PCP 08/16/21 10/24/21 Alex Johnson MD [address] [place] [address] Assigned Rheumatology Provider 10/18/21 04/15/23 Bonny Cooley MD [address] [address] Assigned PCP 10/25/21 04/02/22 Bertram Elizabeth MD [address] [address] Assigned PCP 04/03/22 07/23/22 Bertram Elizabeth MD [address] [address] Assigned PCP 10/02/22 04/29/23 Alex Johnson MD [address] [place] [address] Rheumatology 10/04/24 Alex Johnson MD [address] [place] [address] Assigned Rheumatology Provider 10/28/24 documented as of this encounter
--- OUTSIDE RECORDS SUMMARY | 2025-03-06 17:49 | XMS_ITS | Encounter Summary ---
Author Organization [facility] Address [address] [place] [address] Care Team Providers Care Customer Complaint Clerk Name Role Phone Bettye Gonzales MD Unavailable + Bonny Cooley MD Primary Care Provider Antony Chakraborty MD Unavailable Mateo Cheema MD Unavailable Ermias Colón MD Unavailable Bonny Cooley MD Unavailable [phone] Pam Hernandez MD Unavailable [phone] Lázaro Horowitz MD Unavailable Jaime Grover MD Unavailable Toni Sheth MD Unavailable Toni Sheth MD Unavailable Bertram Elizabeth MD Unavailable Bonny Cooley MD Unavailable [phone] Aminata Youssef MD Primary Care Provider Bertram Elizabeth MD Unavailable Alex Johnson MD Unavailable [phone] Bonny Cooley MD Unavailable [phone] Bertram Elizabeth MD Unavailable [phone] Bertram Elizabeth MD Unavailable [phone] Alex Johnson MD Unavailable Alex Johnson MD Unavailable Encounter Details Date Type Department Care Team (Late st Contact Info) Description 06/06/2020 MyC Medical Advice [facility]astro[facility]ology [facility] [address] [address] Jaime Grover MD [address] [place] [address] Social History Tobacco Use Types Packs/Day Years Used Date Smoking Tobacco: Former Cigarettes 2 3 0 04/23/1976 - 12/17/1977 Smokeless Tobacco: Never Alcohol Use Standard Drinks/Week Comments No 0 (1 standard drink = 0.6 oz pur e alcohol) PHQ-2 Answer Date Recorded PHQ-2 Score 4 01/31/2020 Comments No Sex and Gender Information Value Date Recorded Sex Assigned at Female 08/28/2018 12:23 AM STRAIGHT KNIFE MACHINE CUTTER Legal Sex Female 4:46 AM STRAIGHT KNIFE MACHINE CUTTER Gender Identity Female 08/28/2018 12:23 AM STRAIGHT KNIFE MACHINE CUTTER Sexual Orientation Straight 10/11/2019 2: 51 PM STRAIGHT KNIFE MACHINE CUTTER COVID-19 Exposure Response Date Recorded In [...] Visit [facility] Clinic [address] [address] Alex Johnson MD [address] [facility] [address] [place], [place] [address] documented as of this encounter Visit Diagnoses Not on filedocumented in this encounter Additional Health Concerns Infection Onset Date Last Indicated Resolved Time COVID-19 06/23/2020 06/23/2020 07/14/2020 11:4 0 PM STRAIGHT KNIFE MACHINE CUTTER Recovered COVID 07/08/2020 07/08/2020 09/21/2020 1 1:39 PM STRAIGHT KNIFE MACHINE CUTTER Assessment Noted Time PHQ-9 Depression Total Score: 11 020 2:18 PM CDT documented as of this encounter Care Teams Customer Complaint Clerk Relationship Specialty Start Date End Date Bonny Cooley MD [address] [place] [address] PCP - General Family Practice 09/30/15 06/02/[address] [facility] & [address] [address] PCP - General Internal Medicine 06/03/21 Bettye Gonzales MD Internal Medicine 04/10/15 Antony Chakraborty MD [address] [address] INTERNAL MEDICINE - ENDOCRINOLOGY, DIABETES & METABOLISM 11/13/15 Mateo Cheema MD [address] [address] Internal Medicine 08/06/16 Ermias Colón MD [address] [address] Referring Physician Neurology 09/23/16 Bonny Cooley MD [address] [address] Assigned PCP 10/05/15 07/26/20 Pam Hernandez MD [address] [place] [address] [place] [address] Assigned Behavioral Health Provider 05/30/20 08/01/21 Lázaro Horowitz MD [address] [address] Assigned Rheumatology Provider 05/30/20 07/19/20 Jaime Grover MD [address] [place] [address] Assigned Gastroenterology Provider 05/30/20 11/14/21 Toni Sheth MD [address] [place] [address] Assigned Pediatric Specialist Provider 05/30/20 09/07/20 Toni Sheth MD [address] [place] [address] Assigned Surgical Provider 05/30/20 04/18/21 Bertram Elizabeth MD [address] [address] Assigned PCP 07/27/20 04/25/21 Bonny Cooley MD [address] [address] Assigned PCP 04/26/21 08/15/21 Bertram Elizabeth MD [address] [address] Assigned PCP 08/16/21 10/24/21 Alex Johnson MD [address] [place] [address] Assigned Rheumatology Provider 10/18/21 04/15/23 Bonny Cooley MD [address] [address] Assigned PCP 10/25/21 04/02/22 Bertram Elizabeth MD [address] [address] Assigned PCP 04/03/22 07/23/22 Bertram Elizabeth MD [address] [address] Assigned PCP 10/02/22 04/29/23 Alex Johnson MD [address] [place] [address] Rheumatology 10/04/24 Alex Johnson MD [address] [place] [address] Assigned Rheumatology Provider 10/28/24 documented as of this encounter
--- OUTSIDE RECORDS SUMMARY | 2025-03-06 17:49 | XMS_ITS | Encounter Summary ---
Author Organization [facility] Address [address] [place] [address]. [place] [address] Care Team Providers Care Manager Ambulatory Name Role Phone Bettye Gonzales MD Unavailable + Antony Chakraborty MD Unavailable [phone] Mateo Cheema MD Unavailable [phone] Ermias Colón MD Unavailable Aminata Youssef MD Primary Care Provider Alex Conteh MD Unavailable Alex Conteh MD Unavailable Reason for Visit * Reason Onset Date Comments Refill Request 02/05/2025 Folic acid Encounter Details Date Type Department Care Team (Late st Contact Info) Description 02/05/2025 Refill [facility] [address] [address] Alex Conteh MD [address] [place] [address] Refill Request (Folic acid) Social History [...] Sex Assigned at Female 08/28/2018 12:23 AM GUIDE DOG TRAINER Legal Sex Female 4:46 AM GUIDE DOG TRAINER Gender Identity Female 08/28/2018 12:23 AM GUIDE DOG TRAINER Sexual Orientation Straight 10/11/2019 2: 51 PM GUIDE DOG TRAINER documented as of this encounter Miscellaneous Notes * Telephone Encounter - Mckenna Alexander RN - 02/11/2025 9:41 AM CDT folic acid (FOLVITE) 1 MG tablet Start: 12/17/2024 Disp 120 R 1 TAKE 4 TABLETS(4 MG) BY MOUTH DAILY. FOLLOW-UP WITH DOCTOR WERO. Alex Conteh MD Rheumatology Lv 10/09/24 MG Nv 04/25/25 Medication refilled per ???Medication Refill in Cooling Machine Operator?? policy. Request from pharmacy: Requested Prescriptions Pending Prescriptions Disp Refills folic acid (FOLVITE) 1 MG tablet [Pharmacy Med Name: FOLIC ACID 1MG TABLETS] 120 tablet 1 Sig: TAKE 4 TABLETS(4 MG) BY MOUTH DAILY. FOLLOW-UP WITH DOCTOR CONTEH. Vitamin Supplements Protocol Passed - 02/11/2025 9:47 AM Passed - The patient does not have an order for high-dose vitamin D Passed - Medication is active on med list and the sig matches. RN to manually verify dose and sig if red X/fail. If the protocol passes (green check), you do not need to verify med dose and sig. A prescription matches if they are the same clinical intention. For Example: once daily and every morning are the same. The protocol can not identify upper and lower case letters as matching and will fail. For Example: Take 1 tablet (50 mg) by mouth daily TAKE 1 TABLET (50 MG) BY MOUTH DAILY For all fails (red x), verify dose and sig. If the refill does match what is on file, the RN can still proceed to approve the refill request. If they do not match, route to the appropriate provider. Passed - Medication indicated for associated diagnosis The medication is prescribed for one or more of the following conditions: Vitamin deficiency Osteopenia Osteoporosis Nutrition counseling Nutrition education Feeding ability finding Bone density finding Morbid Obesity History of bypass of stomach Idiopathic peripheral neuropathy General examination of patient Vitamin D deficiency Folate deficiency anemia due to dietary causes Sleeve resection of stomach Rheumatoid factor level - finding Crohn's disease Psoriatic arthritis Transplant of Kidney Arthropathy Alcoholism Malabsorption syndrome Disorder of bone and articular cartilage Cystic Fibrosis Bronchiectasis Passed - The patient is 2 years of age or older Passed - Recent (12 month) or future (90 days) visit with authorizing provider's specialty (provided they have been seen in the past 15 months) The patient must have completed an in-person or virtual visit within the past 12 months or has a future visit scheduled within the next 90 days with the authorizing provider???s specialty. Urgent care and e-visits do not qualify as an office visit for this protocol. documented in this encounter Plan of Treatment Upcoming Encounters Date Type Department Care Team (Late st Contact Info) Description 04/25/2025 1:30 PM CDT Office Visit [address] [address] Alex Conteh MD [address] [place] [address] documented as of this encounter Visit Diagnoses Diagnosis Rheumatoid arthritis of multiple sites without rheumatoid factor (H) Rheumatoid arthritis documented in this encounter Additional Health Concerns Assessment Noted Time PHQ-9 Depression Total Score: 11 01/30/ 020 2:18 PM CDT documented as of this encounter Care Teams Manager Ambulatory Relationship Specialty Start Date End Date Aminata Youssef MD [facility] [address] [place] [address] PCP - General Internal Medicine 06/03/21 Bettye Gonzales MD Internal Medicine 04/10/15 Antony Chakraborty MD [address] [place] [address] INTERNAL MEDICINE - ENDOCRINOLOGY, DIABETES & METABOLISM 11/13/15 Mateo Cheema MD [address] [place] [address] Internal Medicine 08/06/16 Ermias Colón MD [address] [place] [address] Referring Physician Neurology 09/23/16 Alex Conteh MD [address] [place] [address] Rheumatology 10/04/24 Alex Conteh MD [address] [place] [address] Assigned Rheumatology Provider 10/28/24 documented as of this encounter
--- OUTSIDE RECORDS SUMMARY | 2025-03-06 17:49 | XMS_ITS | Encounter Summary ---
Author Organization [place] Address [address] [place] [address] Care Team Providers Care Manager Brand Name Role Phone Bettye Gonzales MD Unavailable + Bonny Cooley MD Primary Care Provider Antony Chakraborty MD Unavailable [phone] Mateo Cheema MD Unavailable Ermias Colón MD Unavailable Suzanne Fernández RN Unavailable [phone] Bonny Cooley MD Unavailable [phone] Bonny Cooley MD Unavailable [phone] Pam Hernandez MD Unavailable [phone] Lázaro Horowitz MD Unavailable Jaime Grover MD Unavailable [phone] Toni Sheth MD Unavailable Toni Sheth MD Unavailable Bertram Elizabeth MD Unavailable Bonny Cooley MD Unavailable +[phone] Aminata Youssef MD Primary Care Provider [phone] Bertram Elizabeth MD Unavailable +[phone]- Alex Johnson MD Unavailable [phone] Bonny Cooley MD Unavailable +[phone] Bertram Elizabeth MD Unavailable +1- Bertram Elizabeth MD Unavailable +1- Alex Johnson MD Unavailable [phone] Alex Johnson MD Unavailable [phone] Reason for Referral * Audiology - Closed Specialty Diagnoses / Procedures Referred By Contgeovani gomez Referred To Contact Diagnoses Change in hearing, bilateral Bonny Cooley MD [address] [place] [address] Phone: tel: fax: MULTIPLE LOCATIONS Referral ID Status Reason Start Date Expiration Date Visits Re quested Visits Authorized [id number] Closed 12/22/2016 12/22/2017 1 1 Comments Your provider has referred you to: [facility] [place] [email or web address] [place] [email or web address] Specialty Testing: Audiogram w/Tymps and Reflexes (Comprehensive Audiology Evaluation) Reason for Visit * Reason Onset Date Comments Hearing change 12/21/2016 Encounter Details Date Type Department Care Team (Late st Contact Info) Description 12/21/2016 [facility] [address] [address] Bonny Cooley MD [address] [facility] [address] [place] [address] Hearing change Social History Tobacco Use Types Packs/Day Years Used Date Smoking Tobacco: Never Smokeless Tobacco: Never Alcohol Use Standard Drinks/Week Comments No 0 (1 standard drink = 0.6 oz pur e alcohol) Comments No Sex and Gender Information Value Date Recorded Sex Assigned at Female 08/28/2018 12:23 AM HISTOLOGY TECHNOLOGIST Legal Sex Female 4:46 AM HISTOLOGY TECHNOLOGIST Gender Identity Female 08/28/2018 12:23 AM HISTOLOGY TECHNOLOGIST Sexual Orientation Straight 10/11/2019 2: 51 PM HISTOLOGY TECHNOLOGIST documented as of this encounter Miscellaneous Notes * Telephone Encounter - Katlin Germain RN - 12/22/2016 10:51 AM CDT Glove Printer responded as per below. MARY KATE Johnson, [...] Description 04/25/2025 1:30 PM CDT Office Visit [facility] Specialty [address] [address] Alex Johnson MD [address] [place] [address] Scheduled Referrals Name Type Priority Associated Diagnoses Orde r Schedule AUDIOLOGY ADULT REFERRAL Referral Routine Change in hearing, bilateral Ordered: 12/22/2016 documented as of this encounter Visit Diagnoses Diagnosis Change in hearing, bilateral- Primary documented in this encounter Additional Health Concerns Infection Onset Date Last Indicated Resolved Time COVID-19 06/23/2020 06/23/2020 07/14/2020 11:4 0 PM HISTOLOGY TECHNOLOGIST Recovered COVID 07/08/2020 07/08/2020 09/21/2020 1 1:39 PM HISTOLOGY TECHNOLOGIST Assessment Noted Time PHQ-9 Depression Total Score: 6 09/22/19 17 7:27 AM HISTOLOGY TECHNOLOGIST documented as of this encounter Care Teams Manager Brand Relationship Specialty Start Date End Date Bonny Cooley MD [address] [place] [address] PCP - General Family Practice 09/30/15 06/02/21 Bonny Cooley MD [address] [address] PCP - Assigned PCP 10/05/15 10/10/18 Aminata Youssef MD [facility] [address] [place] [address] PCP - General Internal Medicine 06/03/21 Bettye Gonzales MD Internal Medicine 04/10/15 Antony Chakraborty MD [address] [place] [address] [address] [place] [address] INTERNAL MEDICINE - ENDOCRINOLOGY, DIABETES & METABOLISM 11/13/15 Mateo Cheema MD [address] [address] Internal Medicine 08/06/16 Ermias Colón MD [address] [address] Referring Physician Neurology 09/23/16 Suzanne Fernández, [facility] Digital Photographer Primary Care - CC 02/28/18 Bonny Cooley MD [address] [address] Assigned PCP 10/05/15 07/26/20 Pam Hernandez MD [address] [place] [address] [place] [address] Assigned Behavioral Health Provider 05/30/20 08/01/21 Lázaro Horowitz MD [facility] [address] [place] [address] Assigned Rheumatology Provider 05/30/20 07/19/20 Jaime Grover MD [address] [place] [address] Assigned Gastroenterology Provider 05/30/20 11/14/21 Toni Sheth MD [address] [place] [address] [id number] Assigned Pediatric Specialist Provider 05/30/20 09/07/20 Toni Sheth MD [address] [place] [address] Assigned Surgical Provider 05/30/20 04/18/21 Bertram Elizabeth MD [facility] [address] [address] Assigned PCP 07/27/20 04/25/21 Bonny Cooley MD [address] [place] [address] Assigned PCP 04/26/21 08/15/21 Bertram Elizabeth MD [address] [place] [address] Assigned PCP 08/16/21 10/24/21 Alex Johnson MD [address] [place] [address] Assigned Rheumatology Provider 10/18/21 04/15/23 Bonny Cooley MD [address] [place] [address] Assigned PCP 10/25/21 04/02/22 Bertram Elizabeth MD [address] [place] [address] Assigned PCP 04/03/22 07/23/22 Bertram Elizabeth MD [address] [place] [address] Assigned PCP 10/02/22 04/29/23 Alex Johnson MD [address] [place] [address] [id number] Rheumatology 10/04/24 Alex Johnson MD [address] [place] [address] 549815 Assigned Rheumatology Provider 10/28/24 documented as of this encounter
--- OUTSIDE RECORDS SUMMARY | 2025-03-06 17:49 | XMS_ITS | Encounter Summary ---
Author Organization [place] Address [address] [place] [address] Care Team Providers Care De Alcoholizer Name Role Phone Bettye Gonzales MD Unavailable + Bonny Cooley MD Primary Care Provider [phone] Antony Chakraborty MD Unavailable Mateo Cheema MD Unavailable Ermias Colón MD Unavailable Bonny Cooley MD Unavailable [phone] Pam Hernandez MD Unavailable [phone] Lázaro Horowitz MD Unavailable Jaime Grover MD Unavailable Toni Sheth MD Unavailable Toni Sheth MD Unavailable Bertram Elizabeth MD Unavailable Bonny Cooley MD Unavailable [phone] Aminata Youssef MD Primary Care Provider Bertram Elizabeth MD Unavailable Alex Johnson MD Unavailable [phone] Bonny Cooley MD Unavailable [phone] Bertram Elizabeth MD Unavailable [phone] Bertram Elizabeth MD Unavailable [phone] Alex Johnson MD Unavailable Alex Johnson MD Unavailable Encounter Details Date Type Department Care Team (Late st Contact Info) Description 06/02/2020 [facility] Medical Advice [facility] [address] [address] Jaime Grover MD [address] [place] [address] Social History Tobacco Use Types Packs/Day Years Used Date Smoking Tobacco: Former Cigarettes 2 3 0 04/23/1976 - 12/17/1977 Smokeless Tobacco: Never Alcohol Use Standard Drinks/Week Comments No 0 (1 standard drink = 0.6 oz pur e alcohol) PHQ-2 Answer Date Recorded PHQ-2 Score 4 01/31/2020 Comments No Sex and Gender Information Value Date Recorded Sex Assigned at Female 08/28/2018 12:23 AM BUYER TOBACCO HEAD Legal Sex Female 4:46 AM BUYER TOBACCO HEAD Gender Identity Female 08/28/2018 12:23 AM BUYER TOBACCO HEAD Sexual Orientation Straight 10/11/2019 2: 51 PM BUYER TOBACCO HEAD COVID-19 Exposure Response Date Recorded In the [...] [facility] [address] [address] Alex Johnson MD [address] [facility] 88 [place], [place] [address] documented as of this encounter Visit Diagnoses Not on filedocumented in this encounter Additional Health Concerns Infection Onset Date Last Indicated Resolved Time COVID-19 06/23/2020 06/23/2020 07/14/2020 11:4 0 PM BUYER TOBACCO HEAD Recovered COVID 07/08/2020 07/08/2020 09/21/2020 1 1:39 PM BUYER TOBACCO HEAD Assessment Noted Time PHQ-9 Depression Total Score: 11 020 2:18 PM CDT documented as of this encounter Care Teams De Alcoholizer Relationship Specialty Start Date End Date Bonny Cooley MD [address] [place] [address] PCP - General Family Practice 09/30/15 06/02/[address] [facility] & [address] [address] PCP - General Internal Medicine 06/03/21 Bettye Gonzales MD Internal Medicine 04/10/15 Antony Chakraborty MD [address] [address] INTERNAL MEDICINE - ENDOCRINOLOGY, DIABETES & METABOLISM 11/13/15 Mateo Cheema MD [address] [address] Internal Medicine 08/06/16 Ermias Colón MD [address] [address] Referring Physician Neurology 09/23/16 Bonny Cooley MD [address] [address] Assigned PCP 10/05/15 07/26/20 Pam Hernandez MD [address] [place] [address] [place] [address] Assigned Behavioral Health Provider 05/30/20 08/01/21 Lázaro Horowitz MD [address] [address] Assigned Rheumatology Provider 05/30/20 07/19/20 Jaime Grover MD [address] [place] [address] Assigned Gastroenterology Provider 05/30/20 11/14/21 Toni Sheth MD [address] [place] [address] Assigned Pediatric Specialist Provider 05/30/20 09/07/20 Toni Sheth MD [address] [place] [address] Assigned Surgical Provider 05/30/20 04/18/21 Bertram Elizabeth MD [address] [address] Assigned PCP 07/27/20 04/25/21 Bonny Cooley MD [address] [address] Assigned PCP 04/26/21 08/15/21 Bertram Elizabeth MD [address] [address] Assigned PCP 08/16/21 10/24/21 Alex Johnson MD [address] [place] [address] Assigned Rheumatology Provider 10/18/21 04/15/23 Bonny Cooley MD [address] [address] Assigned PCP 10/25/21 04/02/22 Bertram Elizabeth MD [address] [address] Assigned PCP 04/03/22 07/23/22 Bertram Elizabeth MD [address] [address] Assigned PCP 10/02/22 04/29/23 Alex Johnson MD [address] [place] [address] Rheumatology 10/04/24 Alex Johnson MD [address] [place] [address] Assigned Rheumatology Provider 10/28/24 documented as of this encounter
--- OUTSIDE RECORDS SUMMARY | 2025-03-06 17:49 | XMS_ITS | Encounter Summary ---
Author Organization [place] Address [address] [place] [address] Care Team Providers Care Lap Grinder Name Role Phone Bettye Gonzales MD Unavailable + Bonny Cooley MD Primary Care Provider Antony Chakraborty MD Unavailable Mateo Cheema MD Unavailable [phone] Ermias Colón MD Unavailable Suzanne Fernández RN Unavailable [phone] Bonny Cooley MD Unavailable [phone] Bonny Cooley MD Unavailable Pam Hernandez MD Unavailable [phone] Lázaro Horowitz MD Unavailable Jaime Grover MD Unavailable [phone] Toni Sheth MD Unavailable Toni Sheth MD Unavailable Bertram Elizabeth MD Unavailable Bonny Cooley MD Unavailable Aminata Youssef MD Primary Care Provider Bertram Elizabeth MD Unavailable [phone] Alex Johnson MD Unavailable Bonny Cooley MD Unavailable Bertram Elizabeth MD Unavailable [phone] Bertram Elizabeth MD Unavailable [phone] Alex Johnson MD Unavailable [phone] Alex Johnson MD Unavailable [phone] Reason for Visit * Reason Onset Date Comments Refill Request 12/08/2017 CELECOXIB 100MG CAPS Encounter Details Date Type Department Care Team (Late st Contact Info) Description 12/08/[address] [address] Bonny Cooley MD [address] [address] Refill Request (CELECOXIB 100MG CAPS) Social History Tobacco Use Types Packs/Day Years Used Date Smoking Tobacco: Former Cigarettes 2 3 0 04/23/1976 - 12/17/1977 Smokeless Tobacco: Never Alcohol Use Standard Drinks/Week Comments No 0 (1 standard drink = 0.6 oz pur e alcohol) Comments No Sex and Gender Information Value Date Recorded Sex Assigned at Female 08/28/2018 12:23 AM RELOCATION SPECIALIST Legal Sex Female 4:46 AM RELOCATION SPECIALIST Gender Identity Female 08/28/2018 12:23 AM RELOCATION SPECIALIST Sexual Orientation Straight 10/11/2019 2: 51 PM RELOCATION SPECIALIST documented as of this encounter Miscellaneous [...] Visit [facility] [place] [address] [phone] Alex Johnson MD [address] [place] [address] documented as of this encounter Visit Diagnoses Diagnosis Osteoarthritis, unspecified osteoarthritis type, unspecified site documented in this encounter Additional Health Concerns Infection Onset Date Last Indicated Resolved Time COVID-19 06/23/2020 06/23/2020 07/14/2020 11:4 0 PM RELOCATION SPECIALIST Recovered COVID 07/08/2020 07/08/2020 09/21/2020 1 1:39 PM RELOCATION SPECIALIST Assessment Noted Time PHQ-9 Depression Total Score: 6 11/04/19 18 7:48 AM CDT documented as of this encounter Care Teams Lap Grinder Relationship Specialty Start Date End Date Bonny Cooley MD [address] [place] [address] PCP - General Family Practice 09/30/15 06/02/21 Bonny Cooley MD [address] [address] PCP - Assigned PCP 10/05/15 10/10/[address] [facility] [address] [place] [address] PCP - General Internal Medicine 06/03/21 Bettye Gonzales MD Internal Medicine 04/10/15 Antony Chakraborty MD [address] [address] INTERNAL MEDICINE - ENDOCRINOLOGY, DIABETES & METABOLISM 11/13/15 Mateo Cheema MD [address] [address] Internal Medicine 08/06/16 Ermias Colón MD [address] [address] Referring Physician Neurology 09/23/16 Suzanne Fernández, [facility] Wedding Consultant Primary Care - CC 02/28/18 Bonny Cooley MD [address] [place] [address] Assigned PCP 10/05/15 07/26/20 Pam Hernandez MD [address] [place] [address] [place] [address] Assigned Behavioral Health Provider 05/30/20 08/01/21 Lázaro Horowitz MD [facility] [address] [place] [address] Assigned Rheumatology Provider 05/30/20 07/19/20 Jaime Grover MD [address] [place] [address] Assigned Gastroenterology Provider 05/30/20 11/14/21 Toni Sheth MD [address] [place] [address] Assigned Pediatric Specialist Provider 05/30/20 09/07/20 Toni Sheth MD [address] [place] [address] Assigned Surgical Provider 05/30/20 04/18/21 Bertram Elizabeth MD [address] [address] Assigned PCP 07/27/20 04/25/21 Bonny Cooley MD [address] [address] Assigned PCP 04/26/21 08/15/21 Bertram Elizabeth MD [address] [place] [address] Assigned PCP 08/16/21 10/24/21 Alex Johnson MD [address] [place] [address] Assigned Rheumatology Provider 10/18/21 04/15/23 Bonny Cooley MD [address] [address] Assigned PCP 10/25/21 04/02/22 Bertram Elizabeth MD [address] [address] Assigned PCP 04/03/22 07/23/22 Bertram Elizabeth MD [address] [address] Assigned PCP 10/02/22 04/29/23 Alex Johnson MD [address] [place] [address] MD Rheumatology 10/04/24 Alex Johnson MD [address] [place] [address] Assigned Rheumatology Provider 10/28/24 documented as of this encounter
--- OUTSIDE RECORDS SUMMARY | 2025-03-06 17:49 | XMS_ITS | Clinical Summary ---
Author Organization [facility] Address [address] [place] [address] Care Team Providers Care Sr Community Manager Name Role Phone Aminata Youssef MD Primary Care Provider [phone] Allergies Active Allergy Reactions Criticality Noted Date Comments Dust Mites *Unknown - Follow up needed 05/12/2016 Milk Other - Describe In Comment Field 12/01/2018 foggy and tired Mold *Unknown - Follow up needed 05/12/2016 Unlisted Allergen (Include Detail In Comments) *Unknown - Follow up needed 05/12/2016 Trees Tree And Shrub Pollen *Unknown 11/19/2013 Medications ASCORBIC ACID (VITAMIN C ORAL) Take 1,000 mg by mouth two times daily. Active AMLODIPINE BESYLATE/BENAZ EPRIL (AMLODIPINE 10 MG AND BENAZEPRIL 20 MG, LOTREL,) Take 1 Capsule by mouth once daily in the evening. Active buPROPion (WELLBUTRIN SR) 150 mg Sustained-Rele ase tablet Take 300 mg by mouth once daily in the morning. Active cholecalcifero l 1,000 unit tablet Take 1,000 units by mouth once daily. Active EVENING PRIMROSE OIL (EVENING PRIMROSE ORAL) Take by mouth two times daily. Active folic acid 1 mg tablet Take 2 mg by mouth two times daily. 2 Active fexofenadine (JOSE EDUARDO) 180 mg tablet Take 180 mg by mouth once daily if needed for Allergy Symptoms. Do not crush or chew. 0 2 Active magnesium oxide 400 mg tablet Take 400 mg by mouth two times daily. Active methotrexate 2.5 mg tablet Take 15 mg by mouth every Tuesday. Active atenoloL 25 mg tablet Take 25 mg by mouth once daily. Active CRANBERRY ORAL Take by mouth two times daily. Active acetaminophen 500 mg tablet Take 500-1,000 mg by mouth every 6 hours if needed for Pain. Max acetaminophen dose: 4000mg in 24 hrs. Active ibuprofen 200 mg tablet Take 400 mg by mouth 2 times daily if needed for Pain. Active multivitamin tablet Take 1 Tablet by mouth once daily. Active calcium carbonate (Tums) 200 mg calcium (500 mg) chewable tablet Chew 500 mg by mouth 2 times daily if needed for Heartburn. Active oxygen-air delivery systemsIndicat ions:Other acute pulmonary embolism without acute cor pulmonale (HC),Ground glass opacity present on imaging of lung Oxygen for home use. Liters per minute: 3 per nasal cannula at rest, 4 lpm via nasal cannula with ambulation/activi ty. Frequency of use: Continuous with portability;. Length of need: 6 Months. 1 Each Active apixaban 5 mg tabletIndicati ons:deep venous thrombosis Take 2 Tablets (10 mg) by mouth two times daily for 9 days, THEN 1 Tablet (5 mg) two times daily. 216 Tablet 10/31/2024 11:29 AM CDT 5 025 Active Problems Problem Noted Date Diagnosed Date Kidney cysts 10/31/2024 Overview (10/31/2024): Cortical, seen on imaging Acute pulmonary embolism without acute cor pulmo nale 10/29/2024 Acute bilateral deep vein thrombosis (DVT) of fe moral veins 10/29/2024 Urinary incontinence 05/31/2022 Obesity with body mass [...] updated by automated process. Provider to review Seronegative inflammatory arthritis 12/15/2018 Presence of right artificial knee joint 12/16/19 Palpitations 12/15/2018 Essential hypertension 12/15/2018 Gastro-esophageal reflux disease without esophag itis 12/15/2018 Encounter for other specified aftercare 12/16/19 19 Overview (05/31/2022): Discussed advance care planning with patient; information given to patient to review. 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 Previously thought she had MS but this diagnosis in now questionable (MRI imaging not consistent with demyelinating process). 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 Hair thinning 05/08/2014 Osteoarthritis of left knee [...] Problem Noted Date Diagnosed Date Resolved Date Pulmonary embolism 10/29/2024 5 Medial meniscus tear, left knee 07/28/2010 01/20/2012 Overview (07/28/2010): Has elected to treat conservatively for time being, can consider surgery if symptomatic Encounters Date Type Department Care Team Description 12/28/2024 Home Care Visit [facility] [address] [place] [address] Naman Hartman, OT OT - OASIS DISCHARGE 12/28/2024 Travel 12/27/2024 11:45 AM CDT Home Care Visit [facility] [address] [place] [phone] TESTER - HOME VISIT 12/18/2024 12:30 PM CDT Home Care Visit [facility] [address] [place] [phone] Arelis Mata COTA OT - HOME VISIT 12/13/2024 9:30 AM CDT Home Care Visit [facility] [address] [place] [phone] Naman Hartman, OT OT - EDEMA/LYMPHEDEMA HOME VISIT 12/13/2024 Travel 12/07/2024 Home Care Visit [facility] [address] [place] [phone] Naman Hartman, OT OT - REASSESSMENT 12/07/2024 Travel 12/05/2024 2:15 PM CDT Home Care Visit [facility] [address] [place] [phone] Javier Mayorga, PT PT - DISCIPLINE DISCHARGE 12/05/2024 11:00 AM CDT Home Care Visit [facility] [address] [place] [phone] Joleen Quijano LISW PROJECT DESIGN ENGINEER - INITIAL ASSESSMENT 12/05/2024 Home Care Visit [facility] [address] [place] [address] Naman Hartman OT COTA SUPERVISION 12/05/2024 Travel from Last 3 Months Immunizations Immunization Administration Dates Next Due INFLUENZA, IIV3 PF (AGE >= 6 MO) 06/25/2008 Influenza A (H1N1), Inactivated 08/14/2009 Influenza, High-dose Inactivated 05/23/2019,07/10,05/01/2015 Influenza, High-dose Quadriv alent Inactivated 05/30/2022,05/04/2021,05/16/2020,2017 Influenza, IIV3 (Age >=3 years) 07/04/2006 Pneumococcal Poly,23-Valent (Pneumovax) 05/12/2011 Pneumococcal conj 13-Valent (Prevnar 13) 12/21/2017 Tdap 12/21/2017 Tuberculin Skin Test, Unspecified 12/29/2018,05/2019 Zoster (Zostavax-ZVL, live) 05/12/2011 Family History Medical History Relation Name Comments [...] on file Legal Sex Female 7:09 AM DATA PROCESSING SPECIALIST Gender Identity Not on file Sexual Orientation Not on file Occupation Industry Job Start Date Job End Date Retired Not on file Not on file Not on file Obstetrics History Last Filed Vital Signs Vital Sign Reading Time Taken Comments Blood Pressure 131/63 12/28/2024 1:46 PM CDT Pulse 63 12/28/2024 1:46 PM CDT Temperature 36.4 C (97.5 F) 12/28/2024 1:46 PM CDT Respiratory Rate 20 12/28/2024 1:46 PM CDT Oxygen Saturation 100% 12/28/2024 1:46 PM CDT Inhaled Oxygen Concentration - - Weight 87.5 kg (193 lb) 11/02/2024 1:25 PM CDT Height 165.1 cm (5' 5) 11/02/2024 1:25 PM CDT Body Mass Index 32.12 11/02/2024 1:25 PM CDT Plan of Treatment Health Maintenance Due Date Last Done Comments Depression screening for age 12+ 1956 BMI (ht and wt on same day) for age 18+ 1962 DEXA/DXA scan for age 65+ 2009 Medicare Wellness for age 65+ 2009 Zoster (shingles) series for age 50+ (1 of 2) 07/07/2011 05/12/2011 RSV vaccine for adults or (1 - 1-dose 75+ series) 2019 COVID-19 vaccine series ( season) 2024 11/24/2023, 05/30/2022, 01/24/2022, Additional history exists Influenza Vaccine (#1) 2025 9, 08/07/2018, 05/01/2015, Additional history exists Tetanus booster 12/22/2027 12/21/2017 Pneumococcal series for age 50+ Completed 12/21/2017, 05/12/2011 Hepatitis B series for 19+ Aged Out N o longer eligible based on patient's age to complete this topic Medical Devices Implanted Type Area Assistant Professor Of Spanish Device Identifier Shelf Expiration Date Model / Serial / Lot Lens Iol Zcb00 17.0 - [id number] Implanted:Qty: 1 on 05/14/2016 by Kiran Chase MD at [facility] Left: [employer] 12/17/2019 ZCB00# / [id number] / Iol Gray +17.5 Tecnis Zcb00 - [id number] Implanted:Qty: 1 on 09/01/2016 by Kiran Chase MD at [facility] Right: [employer] 05/02/2020 ZCB00# / [id number] / Insurance MEDICARE PART A HB ONLY MEDICARE PART B HB ONLY Member Subscriber Plan / Payer (Ef fective 2009-Present) Name:Heidi Miller Member ID:[id number] Relation to Subscriber:Self Name:Heidi Miller Subscriber ID:[id number] Payer ID:Not on file Group ID:Not on file Type:Not on file Address: ATTN: CLAIMS [id number] MEDICARE PB ONLY AETNA [facility] MEDICARE PPS AETNA [facility] Advance Directives * Full Code (Latest Code Status on File) Date Activated Date Inactivated Comments 10/29/2024 4:56 PM 10/31/2024 7:25 PM Question Answer Comments Code Status Discussion: Reviewed Preferences * Full Code Date Activated Date Inactivated Comments 09/01/2016 8:43 AM 09/01/2016 1:26 PM Question Answer Comments Code Status Discussion: Not Discussed * Full Code Date Activated Date Inactivated Comments 05/14/2016 9:47 AM 05/14/2016 2:50 PM Question Answer Comments Code Status Discussion: Not Discussed Care Teams Sr Community Manager Relationship Specialty Start Date End Date Aminata Youssef MD [address] [place] [address] PCP - General Internal Medicine 05/27/21
--- OUTSIDE RECORDS SUMMARY | 2025-03-06 17:49 | XMS_ITS | Encounter Summary ---
Author Organization [facility] Address [address] [place] [address]. [place] [address] Care Team Providers Care Fountain Supervisor Name Role Phone Bettye Gonzales MD Unavailable + Antony Chakraborty MD Unavailable Mateo Cheema MD Unavailable [phone] Ermias Colón MD Unavailable Aminata Youssef MD Primary Care Provider Alex Johnson MD Unavailable [phone] Alex Johnson MD Unavailable [phone] Encounter Details Date Type Department Care Team (Late st Contact Info) Description 12/13/2023 [facility] [address] [address] Daysi Abarcaview Social History Tobacco Use Types Packs/Day Years [...] Sex Assigned at Female 08/28/2018 12:23 AM BUILDING DRAFTING OFFICER Legal Sex Female 4:46 AM BUILDING DRAFTING OFFICER Gender Identity Female 08/28/2018 12:23 AM BUILDING DRAFTING OFFICER Sexual Orientation Straight 10/11/2019 2: 51 PM BUILDING DRAFTING OFFICER documented as of this encounter Plan of Treatment Upcoming Encounters Date Type Department Care Team (Late st Contact Info) Description 04/25/2025 1:30 PM CDT Office Visit [facility] [address] [phone] Alex Johnson MD [address] [place] [phone] documented as of this encounter Visit Diagnoses Not on filedocumented in this encounter Additional Health Concerns Assessment Noted Time PHQ-9 Depression Total Score: 11 020 2:18 PM CDT documented as of this encounter Care Teams Fountain Supervisor Relationship Specialty Start Date End Date Aminata Youssef MD [facility] [address] [place] [address] PCP - General Internal Medicine 06/03/21 Bettye Gonzales MD Internal Medicine 04/10/15 Antony Chakraborty MD [address] [address] INTERNAL MEDICINE - ENDOCRINOLOGY, DIABETES & METABOLISM 11/13/15 Mateo Cheema MD [address] [address] Internal Medicine 08/06/16 Ermias Colón, MD [address] [place] [address] 689385 Referring Physician Neurology 09/23/16 Alex Johnson MD [address] [place] [address] [phone] MD Rheumatology 10/04/24 Alex Johnson MD [address] [place] [address] [phone] Assigned Rheumatology Provider 10/28/24 documented as of this encounter
--- OUTSIDE RECORDS SUMMARY | 2025-03-06 17:49 | XMS_ITS | Encounter Summary ---
Author Organization [facility] Address [address] [place] [address]. [place] [address] Care Team Providers Care Research Manufacturing Operator Name Role Phone Bettye Gonzales MD Unavailable + Antony Chakraborty MD Unavailable Mateo Cheema MD Unavailable [phone] Ermias Colón MD Unavailable Aminata Youssef MD Primary Care Provider Alex Johnson MD Unavailable [phone] Alex Johnson MD Unavailable [phone] Encounter Details Date Type Department Care Team (Late st Contact Info) Description 07/21/2023 [facility] [address] [address] Suly Merrill, RN Social History [...] Sex Assigned at Female 08/28/2018 12:23 AM REALTY SPECIALIST Legal Sex Female 4:46 AM REALTY SPECIALIST Gender Identity Female 08/28/2018 12:23 AM REALTY SPECIALIST Sexual Orientation Straight 10/11/2019 2: 51 PM REALTY SPECIALIST documented as of this encounter Plan of Treatment Upcoming Encounters Date Type Department Care Team (Late st Contact Info) Description 04/25/2025 1:30 PM CDT Office Visit [facility] [address] [phone] Alex Johnson MD [address] [place] [address]015 documented as of this encounter Visit Diagnoses Not on filedocumented in this encounter Additional Health Concerns Assessment Noted Time PHQ-9 Depression Total Score: 11 020 2:18 PM CDT documented as of this encounter Care Teams Research Manufacturing Operator Relationship Specialty Start Date End Date Aminata Youssef MD [facility] [address] [place] [address] PCP - General Internal Medicine 06/03/21 Bettye Gonzales MD Internal Medicine 04/10/15 Antony Chakraborty MD [address] [address] INTERNAL MEDICINE - ENDOCRINOLOGY, DIABETES & METABOLISM 11/13/15 Mateo Cheema MD [address] [facility] [address] [place] [address] Internal Medicine 08/06/16 KatarzynaErmias guy MD [address] [place] [address] Referring Physician Neurology 09/23/16 lAex Johnson MD [address] [place] [address] 837275 Rheumatology 10/04/24 Alex Johnson MD [address] [place] [address] 388125 Assigned Rheumatology Provider 10/28/24 documented as of this encounter
--- OUTSIDE RECORDS SUMMARY | 2025-03-06 17:49 | XMS_ITS | Encounter Summary ---
Author Organization [facility] Address [address] [place] [address] Care Team Providers Care Space Physicist Name Role Phone Bettye Gonzales MD Unavailable + Bonny Cooley MD Primary Care Provider [phone] Antony Chakraborty MD Unavailable Mateo Cheema MD Unavailable Ermias Colón MD Unavailable Bonny Cooley MD Unavailable [phone] Pam Hernandez MD Unavailable [phone] Lázaro Horowitz MD Unavailable Jaime Grover MD Unavailable Toni Sheth MD Unavailable Toni Sheth MD Unavailable Bertram Elizabeth MD Unavailable Bonny Cooley MD Unavailable [phone] Aminata Youssef MD Primary Care Provider Bertram Elizabeth MD Unavailable Alex Johnson MD Unavailable Bonny Cooley MD Unavailable [phone] Bertram Elizabeth MD Unavailable [phone] Bertram Elizabeth MD Unavailable [phone] Alex Johnson MD Unavailable Alex Johnson MD Unavailable [phone] Encounter Details Date Type Department Care Team (Late st Contact Info) Description 06/08/[address] [facility] [address] [address] Jaime Grover MD [address] [place] [address] Social History Tobacco Use Types Packs/Day Years Used Date Smoking Tobacco: Former Cigarettes 2 3 0 04/23/1976 - 12/17/1977 Smokeless Tobacco: Never Alcohol Use Standard Drinks/Week Comments No 0 (1 standard drink = 0.6 oz pur e alcohol) PHQ-2 Answer Date Recorded PHQ-2 Score 4 01/31/2020 Comments No Sex and Gender Information Value Date Recorded Sex Assigned at Female 08/28/2018 12:23 AM CYBER INCIDENT RESPONDER Legal Sex Female 4:46 AM CYBER INCIDENT RESPONDER Gender Identity Female 08/28/2018 12:23 AM CYBER INCIDENT RESPONDER Sexual Orientation Straight 10/11/2019 2: 51 PM CYBER INCIDENT RESPONDER COVID-19 Exposure Response Date Recorded In the [...] Office Visit [facility] [address] [address] Alxe Johnson MD [address] [facility] [address] [place], [place] [phone] documented as of this encounter Visit Diagnoses Not on filedocumented in this encounter Additional Health Concerns Infection Onset Date Last Indicated Resolved Time COVID-19 06/23/2020 06/23/2020 07/14/2020 11:4 0 PM CYBER INCIDENT RESPONDER Recovered COVID 07/08/2020 07/08/2020 09/21/2020 1 1:39 PM CYBER INCIDENT RESPONDER Assessment Noted Time PHQ-9 Depression Total Score: 11 020 2:18 PM CDT documented as of this encounter Care Teams Space Physicist Relationship Specialty Start Date End Date Bonny Cooley MD [address] [place] [address] PCP - General Family Practice 09/30/15 06/02/21 Aminata Youssef MD [facility] [address] [address] PCP - General Internal Medicine 06/03/21 Bettye Gonzales MD Internal Medicine 04/10/15 Antony Chakraborty MD [address] [address] INTERNAL MEDICINE - ENDOCRINOLOGY, DIABETES & METABOLISM 11/13/15 Mateo Cheema MD [address] [address] Internal Medicine 08/06/16 Ermias Colón MD [address] [address] Referring Physician Neurology 09/23/16 Bonny Cooley MD [address] [address] Assigned PCP 10/05/15 07/26/20 Pam Hernandez MD [address] [place] [address] [place] [address] Assigned Behavioral Health Provider 05/30/20 08/01/21 Lázaro Horowitz MD [address] [address] Assigned Rheumatology Provider 05/30/20 07/19/20 Jaime Grover MD [address] [place] [address] Assigned Gastroenterology Provider 05/30/20 11/14/21 Toni Sheth MD [address] [place] [address] Assigned Pediatric Specialist Provider 05/30/20 09/07/20 Toni Sheth MD [address] [place] [address] Assigned Surgical Provider 05/30/20 04/18/21 Bertram Elizabeth MD [address] [address] Assigned PCP 07/27/20 04/25/21 Bonny Cooley MD [address] [address] Assigned PCP 04/26/21 08/15/21 Bertram Elizabeth MD [address] [address] Assigned PCP 08/16/21 10/24/21 Alex Johnson MD [address] [place] [address] Assigned Rheumatology Provider 10/18/21 04/15/23 Bonny Cooley MD [address] [address] Assigned PCP 10/25/21 04/02/22 Bertram Elizabeth MD [address] [address] Assigned PCP 04/03/22 07/23/22 Bertram Elizabeth MD [address] [address] Assigned PCP 10/02/22 04/29/23 Alex Johnson MD [address] [place] [address] Rheumatology 10/04/24 Alex Johnson MD [address] [place] [address] Assigned Rheumatology Provider 10/28/24 documented as of this encounter
--- OUTSIDE RECORDS SUMMARY | 2025-03-06 17:50 | XMS_ITS | Encounter Summary ---
Author Organization [facility] Address [address] [place] [address] Care Team Providers Care Electrical Sign Wirer Helper Name Role Phone Bettye Gonzales MD Unavailable + Bonny Cooley MD Primary Care Provider Antony Chakraborty MD Unavailable Mateo Cheema MD Unavailable [phone] Ermias Colón MD Unavailable Bonny Cooley MD Unavailable [phone] Pam Hernandez MD Unavailable [phone] Lázaro Horowitz MD Unavailable Jaime Grover MD Unavailable Toni Sheth MD Unavailable Toni Sheth MD Unavailable Bertram Elizabeth MD Unavailable Bonny Cooley MD Unavailable Aminata Youssef MD Primary Care Provider Bertram Elizabeth MD Unavailable [phone] Alex Johnson MD Unavailable [phone] Bonny Cooley MD Unavailable [phone] Bertram Elizabeth MD Unavailable [phone] Bertram Elizabeth MD Unavailable [phone] Alex Johnson MD Unavailable Alex Johnson MD Unavailable Encounter Details Date Type Department Care Team (Late st Contact Info) Description 05/24/2019 MyC Medical Advice [facility] [address] [address] Toni Del Angel MD [address] [place] [address] Social History Tobacco Use Types [...] Sex Assigned at Female 08/28/2018 12:23 AM PUBLIC HEALTH PROGRAM MANAGER Legal Sex Female 4:46 AM PUBLIC HEALTH PROGRAM MANAGER Gender Identity Female 08/28/2018 12:23 AM PUBLIC HEALTH PROGRAM MANAGER Sexual Orientation Straight 10/11/2019 2: 51 PM PUBLIC HEALTH PROGRAM MANAGER documented as of this encounter Plan of Treatment Upcoming Encounters Date Type Department Care Team (Late st Contact Info) Description 04/25/2025 1:30 PM CDT Office Visit [facility] [address] [place] [address] Alex Johnson MD [address] [place] [address] documented as of this encounter Visit Diagnoses Not on filedocumented in this encounter Additional Health Concerns Infection Onset Date Last Indicated Resolved Time COVID-19 06/23/2020 06/23/2020 07/14/2020 11:4 0 PM PUBLIC HEALTH PROGRAM MANAGER Recovered COVID 07/08/2020 07/08/2020 09/21/2020 1 1:39 PM PUBLIC HEALTH PROGRAM MANAGER Assessment Noted Time PHQ-9 Depression Total Score: 11 03/28/ 019 2:53 PM CDT documented as of this encounter Care Teams Electrical Sign Wirer Helper Relationship Specialty Start Date End Date Bonny Cooley MD [address] [place] [address] PCP - General Family Practice 09/30/15 06/02/21 Aminata Youssef MD [facility] & [address] [address] PCP - General Internal Medicine 06/03/21 Bettye Gonzales MD Internal Medicine 04/10/15 Antony Chakraborty MD [address] [address] MD INTERNAL MEDICINE - ENDOCRINOLOGY, DIABETES & METABOLISM 11/13/15 Mateo Cheema MD [address] 844895 Internal Medicine 08/06/16 Ermias Colón MD [address] [address] Referring Physician Neurology 09/23/16 Bonny Cooley MD [address] [address] Assigned PCP 10/05/15 07/26/20 Pam Hernandez MD [address] [place] [address] [place] [address] Assigned Behavioral Health Provider 05/30/20 08/01/21 Lázaro Horowitz MD [facility] [address] [place] [address] Assigned Rheumatology Provider 05/30/20 07/19/20 Jaime Grover MD [address] [place] [address] Assigned Gastroenterology Provider 05/30/20 11/14/21 Toni Sheth MD [address] [place] [address] [id number] Assigned Pediatric Specialist Provider 05/30/20 09/07/20 Toni Sheth MD [address] [place] [address] Assigned Surgical Provider 05/30/20 04/18/21 Bertram Elizabeth MD [address] [address] Assigned PCP 07/27/20 04/25/21 Bonny Cooley MD [address] [address] Assigned PCP 04/26/21 08/15/21 Bertram Elizabeth MD [address] [address] Assigned PCP 08/16/21 10/24/21 Alex Johnson MD [address] [place] [address] Assigned Rheumatology Provider 10/18/21 04/15/23 Bonny Cooley MD [address] [address] Assigned PCP 10/25/21 04/02/22 Bertram Elizabeth MD [address] [address] Assigned PCP 04/03/22 07/23/22 Bertram Elizabeth MD [address] [address] Assigned PCP 10/02/22 04/29/23 Alex Johnson MD [address] [place] [address] Rheumatology 10/04/24 Alex Johnson MD [address] [place] [address] Assigned Rheumatology Provider 10/28/24 documented as of this encounter
--- OUTSIDE RECORDS SUMMARY | 2025-03-06 17:50 | XMS_ITS | Encounter Summary ---
Author Organization [place] Address [address] [place] [address] Care Team Providers Care School Services Officer Name Role Phone Bettye Gonzales MD Unavailable + Bonny Cooley MD Primary Care Provider [phone] Antony Chakraborty MD Unavailable Mateo Cheema MD Unavailable [phone] Ermias Colón MD Unavailable Bonny Cooley MD Unavailable Bonny Cooley MD Unavailable [phone] Pam Hernandez MD Unavailable [phone] Lázaor Horowitz MD Unavailable Jaime Grover MD Unavailable Toni Sheth MD Unavailable Toni Sheth MD Unavailable Bertram Elizabeth MD Unavailable Bonny Cooley MD Unavailable [phone] Aminata Youssef MD Primary Care Provider Bertram Elizabeth MD Unavailable [phone] Alex Johnson MD Unavailable Bonny Cooley MD Unavailable Bertram Elizabeth MD Unavailable [phone] Bertram Elizabeth MD Unavailable [phone] Alex Johnson MD Unavailable Alex Johnson MD Unavailable [phone] Reason for Visit * Reason Comments Medication Refill Encounter Details Date Type Department Care Team (Late st Contact Info) Description 10/05/2018 [facility] [address] [address] Lázaro Horowitz MD [place] [address] [address] [place], [place] [address] Medication Refill Social History Tobacco Use Types [...] Sex Assigned at Female 08/28/2018 12:23 AM SOAP PRESS FEEDER Legal Sex Female 4:46 AM SOAP PRESS FEEDER Gender Identity Female 08/28/2018 12:23 AM SOAP PRESS FEEDER Sexual Orientation Straight 10/11/2019 2: 51 PM SOAP PRESS FEEDER documented as of this encounter Miscellaneous Notes * Telephone Encounter - Deborah Ellison, CLOTH BEAMER - 10/05/2018 7:33 AM CST Refill request [...] 0.90 08/28/2018 No results found for: URIC PRESS FEEDER documented in this encounter Plan of Treatment Upcoming Encounters Date Type Department Care Team (Late st Contact Info) Description 04/25/2025 1:30 PM CDT Office Visit [facility] [address] 200 [place] [phone] Alex Johnson MD [address] [place] [address] documented as of this encounter Visit Diagnoses Diagnosis Rheumatoid arthritis of multiple sites without rheumatoid factor (H) Rheumatoid arthritis documented in this encounter Additional Health Concerns Infection Onset Date Last Indicated Resolved Time COVID-19 06/23/2020 06/23/2020 07/14/2020 11:4 0 PM SOAP PRESS FEEDER Recovered COVID 07/08/2020 07/08/2020 09/21/2020 1 1:39 PM SOAP PRESS FEEDER Assessment Noted Time PHQ-9 Depression Total Score: 13 018 7:20 AM SOAP PRESS FEEDER documented as of this encounter Care Teams School Services Officer Relationship Specialty Start Date End Date Bonny Cooley MD [address] [place] [address] PCP - General Family Practice 09/30/15 06/02/21 Bonny Cooley MD 2270 [facility] 200 [place] [address] PCP - Assigned PCP 10/05/15 10/10/18 Aminata Youssef MD [facility] 2000 [place] [address] PCP - General Internal Medicine 06/03/21 Bettye Gonzales MD Internal Medicine 04/10/15 Antony Chakraborty MD 420 [facility] [address] [address] MD INTERNAL MEDICINE - ENDOCRINOLOGY, DIABETES & METABOLISM 11/13/15 Mateo Cheema MD [address] [address] MD Internal Medicine 08/06/16 Ermias Colón MD [address] 8[address] Referring Physician Neurology 09/23/16 Bonny Cooley MD [address] [id number] Assigned PCP 10/05/15 07/26/20 Pam Hernandez MD [address] [place] [address] [place] [address] Assigned Behavioral Health Provider 05/30/20 08/01/21 Lázaro Horowitz MD [facility] [address] [place] [address] Assigned Rheumatology Provider 05/30/20 07/19/20 Jaime Grover MD [address] [place] [address] Assigned Gastroenterology Provider 05/30/20 11/14/21 [place] [address] [place] [address] [id number] Assigned Pediatric Specialist Provider 05/30/20 09/07/20 [place] [address] [place] [address] [id number] Assigned Surgical Provider 05/30/20 04/18/21 Bertram Elizabeth MD [facility] [address] [address] Assigned PCP 07/27/20 04/25/21 [place] [address] [place] [address] Assigned PCP 04/26/21 08/15/21 Bertram Elizabeth MD [address] [place] [address] Assigned PCP 08/16/21 10/24/21 Alex Johnson MD [address] [place] [address] Assigned Rheumatology Provider 10/18/21 04/15/23 Bonny Cooley MD [address] [place] [address] Assigned PCP 10/25/21 04/02/22 Bertram Elizabeth MD [address] [address] Assigned PCP 04/03/22 07/23/22 Bertram Elizabeth MD [address] [address] Assigned PCP 10/02/22 04/29/23 Alex Johnson MD [address] [place] [address] MD Rheumatology 10/04/24 Alex Johnson MD [address] [place] [address] Assigned Rheumatology Provider 10/28/24 documented as of this encounter
--- OUTSIDE RECORDS SUMMARY | 2025-03-06 17:50 | XMS_ITS | Encounter Summary ---
Author Organization [place] Address [address] [place] [address] Care Team Providers Care Sausage Mixer Name Role Phone Bettye Gonzales MD Unavailable + Bonny Cooley MD Primary Care Provider [phone] Antony Chakraborty MD Unavailable Mateo Cheema MD Unavailable Ermias Colón MD Unavailable Suzanne Fernández RN Unavailable [phone] Bonny Cooley MD Unavailable [phone] Bonny Cooley MD Unavailable [phone] Pam Hernandez MD Unavailable [phone] Lázaro Horowitz MD Unavailable Jaime Grover MD Unavailable Toni Sheth MD Unavailable Toni Sheth MD Unavailable Bertram Elizabeth MD Unavailable Bonny Cooley MD Unavailable [phone] Aminata Youssef MD Primary Care Provider [phone] Bertram Elizabeth MD Unavailable [phone] Alex Johnson MD Unavailable Bonny Cooley MD Unavailable [phone] Bertram Elizabeth MD Unavailable [phone] Bertram Elizabeth MD Unavailable [phone] Alxe Johnson MD Unavailable [phone] Alex Johnson MD Unavailable Encounter Details Date Type Department Care Team (Late st Contact Info) Description 02/28/2018 MyC Medical Advice [address] [address] Noe Camarena RN Social History Tobacco Use Types Packs/Day Years Used Date Smoking Tobacco: Former Cigarettes 2 3 0 04/23/1976 - 12/17/1977 Smokeless Tobacco: Never Alcohol Use Standard Drinks/Week Comments No 0 (1 standard drink = 0.6 oz pur e alcohol) Comments No Sex and Gender Information Value Date Recorded Sex Assigned at Female 08/28/2018 12:23 AM MUFFLER HAND Legal Sex Female 4:46 AM MUFFLER HAND Gender Identity Female 08/28/2018 12:23 AM MUFFLER HAND Sexual Orientation Straight 10/11/2019 2: 51 PM MUFFLER HAND documented as of this encounter Plan of Treatment Upcoming Encounters Date Type Department Care Team (Late st Contact Info) Description 04/25/2025 1:30 PM CDT Office Visit [facility] [address] [address] Alex Johnson MD [address] [place] [address] documented as of this encounter Visit Diagnoses Not on filedocumented in this encounter Additional Health Concerns Infection Onset Date Last Indicated Resolved Time COVID-19 06/23/2020 06/23/2020 07/14/2020 11:4 0 PM MUFFLER HAND Recovered COVID 07/08/2020 07/08/2020 09/21/2020 1 1:39 PM MUFFLER HAND Assessment Noted Time PHQ-9 Depression Total Score: 12 018 7:15 AM CDT documented as of this encounter Care Teams Sausage Mixer Relationship Specialty Start Date End Date Bonny Cooley MD [address] [place] [address] PCP - General Family Practice 09/30/15 06/02/21 Bonny Cooley MD [address] [address] PCP - Assigned PCP 10/05/15 10/10/18 Aminata Youssef MD [facility] 2000 [place] [address] PCP - General Internal Medicine 06/03/21 Bettye Gonzales MD Internal Medicine 04/10/15 Antony Chakraborty MD [address] [address] INTERNAL MEDICINE - ENDOCRINOLOGY, DIABETES & METABOLISM 11/13/15 Mateo Cheema MD [address] [address] Internal Medicine 08/06/16 Ermias Colón MD [address] [place] [address] Referring Physician Neurology 09/23/16 Suzanne Fernández, RN Clinic Strand And Binder Controller Primary Care - CC 02/28/18 Bonny Cooley MD [address] [address] Assigned PCP 10/05/15 07/26/20 Pam Hernandez MD [address] [place] [address] [place] [address] Assigned Behavioral Health Provider 05/30/20 08/01/21 Lázaro Horowitz MD [place] [address] [address] [place] [address] Assigned Rheumatology Provider 05/30/20 07/19/20 Jaime Grover MD [address] [place] [address] Assigned Gastroenterology Provider 05/30/20 11/14/21 Toni Sheth MD [address] [place] [address] [id number] Assigned Pediatric Specialist Provider 05/30/20 09/07/20 Toni Sheth MD [address] [place] [address] Assigned Surgical Provider 05/30/20 04/18/21 Bertram Elizabeth MD [address] [address] Assigned PCP 07/27/20 04/25/21 Bonny Cooley MD [address] [address] Assigned PCP 04/26/21 08/15/21 Bertram Elizabeth MD [address] [place] [address] Assigned PCP 08/16/21 10/24/21 Alex Johnson MD [address] [place] [address] Assigned Rheumatology Provider 10/18/21 04/15/23 Bonny Cooley MD [address] [place] [address] Assigned PCP 10/25/21 04/02/22 Bertram Elizabeth MD [address] [place] [address] Assigned PCP 04/03/22 07/23/22 Bertram Elizabeth MD [address] [place] [address] Assigned PCP 10/02/22 04/29/23 Alex Johnson MD [address] [place] [address] MD Rheumatology 10/04/24 Alex Johnson MD [address] [place] [address] Assigned Rheumatology Provider 10/28/24 documented as of this encounter
--- OUTSIDE RECORDS SUMMARY | 2025-03-06 17:50 | XMS_ITS | Encounter Summary ---
Author Organization [place] Address [address] [place] [address] Care Team Providers Care Brush Holder Inspector Name Role Phone Bettye Gonzales MD Unavailable + Bonny Cooley MD Primary Care Provider Antony Chakraborty MD Unavailable Mateo Cheema MD Unavailable Ermias Colón MD Unavailable Suzanne Fernández RN Unavailable [phone] Bonny Cooley MD Unavailable [phone] Bonny Cooley MD Unavailable [phone] Pam Hernandez MD Unavailable [phone] Lázaro Horowitz MD Unavailable Jaime Grover MD Unavailable Toni Sheth MD Unavailable Toni Sheth MD Unavailable Bertram Elizabeth MD Unavailable Bonny Cooley MD Unavailable [phone] Aminata Youssef MD Primary Care Provider Bertram Elizabeth MD Unavailable [phone] Alex Johnson MD Unavailable [phone] Bonny Cooley MD Unavailable [phone] Bertram Elizabeth MD Unavailable [phone] Bertram Elizabeth MD Unavailable +[phone] Alex Johnson MD Unavailable [phone] Alex Johnson MD Unavailable [phone] Encounter Details Date Type Department Care Team (Late st Contact Info) Description 01/25/2018 MyC Medical Advice [address] [address] Lázaro Horowitz MD [address] [address] Social History Tobacco Use Types Packs/Day Years Used Date Smoking Tobacco: Former Cigarettes 2 3 0 04/23/1976 - 12/17/1977 Smokeless Tobacco: Never Alcohol Use Standard Drinks/Week Comments No 0 (1 standard drink = 0.6 oz pur e alcohol) Comments No Sex and Gender Information Value Date Recorded Sex Assigned at Female 08/28/2018 12:23 AM WHIZZER Legal Sex Female 4:46 AM WHIZZER Gender Identity Female 08/28/2018 12:23 AM WHIZZER Sexual Orientation Straight 10/11/2019 2: 51 PM WHIZZER documented as of this encounter Plan of Treatment Upcoming Encounters Date Type Department Care Team (Late st Contact Info) Description 04/25/2025 1:30 PM CDT Office Visit [address] [address] Alex Johnson MD [address] [place] [address] documented as of this encounter Visit Diagnoses Not on filedocumented in this encounter Additional Health Concerns Infection Onset Date Last Indicated Resolved Time COVID-19 06/23/2020 06/23/2020 07/14/2020 11:4 0 PM WHIZZER Recovered COVID 07/08/2020 07/08/2020 09/21/2020 1 1:39 PM WHIZZER Assessment Noted Time PHQ-9 Depression Total Score: 12 018 7:15 AM CDT documented as of this encounter Care Teams Brush Holder Inspector Relationship Specialty Start Date End Date Bonny Cooley MD [address] [place] [address] PCP - General Family Practice 09/30/15 06/02/21 Bonny Cooley MD [address] [phone] PCP - Assigned PCP 10/05/15 10/10/18 Aminata Youssef MD [facility] 2000 [place] [address] PCP - General Internal Medicine 06/03/21 Bettye Gonzales MD Internal Medicine 04/10/15 Antony Chakraborty MD 420 [facility] 101 [place], [place] [address] INTERNAL MEDICINE - ENDOCRINOLOGY, DIABETES & METABOLISM 11/13/15 Mateo Cheema MD 420 [facility] 101 [place], [place] 605575 Internal Medicine 08/06/16 Ermias Colón MD 420 [facility] 101 [place], [place] 310085 Referring Physician Neurology 09/23/16 Suzanne Fernández, RN Clinic Case Assembler Primary Care - CC 02/28/18 Bonny Cooley MD [address] [address] Assigned PCP 10/05/15 07/26/20 Pam Hernandez MD [address] [place] [address] [place] [address] Assigned Behavioral Health Provider 05/30/20 08/01/21 Lázaro Horowitz MD [facility] [address] [place], [place] [address] Assigned Rheumatology Provider 05/30/20 07/19/20 Jaime Grover MD [address] [place] [address] Assigned Gastroenterology Provider 05/30/20 11/14/21 [place] [address] [place] [address] [phone] Assigned Pediatric Specialist Provider 05/30/20 09/07/20 [place] [address] [place] [address] Assigned Surgical Provider 05/30/20 04/18/21 Bertram Elizabeth MD 0 [facility] 200 [place] [address] Assigned PCP 07/27/20 04/25/21 Bonny Cooley MD [address] [address] Assigned PCP 04/26/21 08/15/21 Bertram Elizabeth MD [address] [address] Assigned PCP 08/16/21 10/24/21 Alex Johnson MD [address] [place] [address] Assigned Rheumatology Provider 10/18/21 04/15/23 Bonny Cooley MD [address] [address] Assigned PCP 10/25/21 04/02/22 Bertram Elizabeth MD [address] [address] Assigned PCP 04/03/22 07/23/22 Bertram Elizabeth MD [address] [address] Assigned PCP 10/02/22 04/29/23 Alex Johnson MD [address] [place] [address] Rheumatology 10/04/24 Alex Johnson MD [address] [place] [address] Assigned Rheumatology Provider 10/28/24 documented as of this encounter
--- OUTSIDE RECORDS SUMMARY | 2025-03-06 17:50 | XMS_ITS | Encounter Summary ---
Author Organization [place] Address [address] [place] [address] Care Team Providers Care Refinery Superintendent Name Role Phone Bettye Gonzales MD Unavailable + Bonny Cooley MD Primary Care Provider [phone] Antony Chakraborty MD Unavailable [phone] Mateo Cheema MD Unavailable [phone] Ermias Colón MD Unavailable Bonny Cooley MD Unavailable [phone] Pam Hernandez MD Unavailable [phone] Lázaro Horowitz MD Unavailable Jaime Grover MD Unavailable Toni Sheth MD Unavailable Toni Sheth MD Unavailable Bertram Elizabeth MD Unavailable Bonny Cooley MD Unavailable [phone] Aminata Youssef MD Primary Care Provider Bertram Elizabeth MD Unavailable [phone] Alex Johnson MD Unavailable Bonny Cooley MD Unavailable [phone] Bertram Elizabeth MD Unavailable [phone] Bertram Elizabeth MD Unavailable [phone] Alex Johnson MD Unavailable Alex Johnson MD Unavailable [phone] Encounter Details Date Type Department Care Team (Late st Contact Info) Description 11/26/2019 MyC Medical Advice [facility] [address] [address] Toni Del Angel MD [address] [place] [address] Social History Tobacco Use Types [...] Assigned at Female 08/28/2018 12:23 AM VP CUSTOMER DEVELOPMENT Legal Sex Female 4:46 AM VP CUSTOMER DEVELOPMENT Gender Identity Female 08/28/2018 12:23 AM VP CUSTOMER DEVELOPMENT Sexual Orientation Straight 10/11/2019 2: 51 PM VP CUSTOMER DEVELOPMENT COVID-19 Exposure Response Date Recorded In [...] Office Visit [facility] [address] [address] Alex Johnson MD 515 [facility] 88 [place], [place] [address]215 documented as of this encounter Visit Diagnoses Not on filedocumented in this encounter Additional Health Concerns Infection Onset Date Last Indicated Resolved Time COVID-19 06/23/2020 06/23/2020 07/14/2020 11:4 0 PM VP CUSTOMER DEVELOPMENT Recovered COVID 07/08/2020 07/08/2020 09/21/2020 1 1:39 PM VP CUSTOMER DEVELOPMENT Assessment Noted Time PHQ-9 Depression Total Score: 15 020 2:41 PM VP CUSTOMER DEVELOPMENT documented as of this encounter Care Teams Refinery Superintendent Relationship Specialty Start Date End Date Bonny Cooley MD [address] [place] [address] PCP - General Family Practice 09/30/15 06/02/21 Aminata Youssef MD [facility] & [address] [address] PCP - General Internal Medicine 06/03/21 Bettye Gonzales MD Internal Medicine 04/10/15 Antony Chakraborty MD [address] [address] INTERNAL MEDICINE - ENDOCRINOLOGY, DIABETES & METABOLISM 11/13/15 Mateo Cheema MD [address] [address] Internal Medicine 08/06/16 Ermias Colón MD [address] [place] [address] Referring Physician Neurology 09/23/16 Bonny Cooley MD [address] [address] Assigned PCP 10/05/15 07/26/20 Pam Hernandez MD [address] [place] [address] [place] [address] Assigned Behavioral Health Provider 05/30/20 08/01/21 Lázaro Horowitz MD [address] [address] Assigned Rheumatology Provider 05/30/20 07/19/20 Jaime Grover MD [address] [place] [address] Assigned Gastroenterology Provider 05/30/20 11/14/21 Toni Sheth MD [address] [place] [address] Assigned Pediatric Specialist Provider 05/30/20 09/07/20 Toni Sheth MD [address] [place] [address] Assigned Surgical Provider 05/30/20 04/18/21 Bertram Elizabeth MD [address] [address] Assigned PCP 07/27/20 04/25/21 Bonny Cooley MD [address] [address] Assigned PCP 04/26/21 08/15/21 Bertram Elizabeth MD [address] [address] Assigned PCP 08/16/21 10/24/21 Alex Johnson MD [address] [place] [address] Assigned Rheumatology Provider 10/18/21 04/15/23 Bonny Cooley MD [address] [address] Assigned PCP 10/25/21 04/02/22 Bertram Elizabeth MD [address] [address] Assigned PCP 04/03/22 07/23/22 Bertram Elizabeth MD [address] [address] Assigned PCP 10/02/22 04/29/23 Alex Johnson MD [address] [place] [address] Rheumatology 10/04/24 Alex Johnson MD [address] [place] [address] Assigned Rheumatology Provider 10/28/24 documented as of this encounter
--- OUTSIDE RECORDS SUMMARY | 2025-03-06 17:50 | XMS_ITS | Encounter Summary ---
Author Organization [place] Address [address] [place] [address] Care Team Providers Care Fish Boning Machine Feeder Name Role Phone Bettye Gonzales MD Unavailable + Bonny Cooley MD Primary Care Provider Antony Chakraborty MD Unavailable [phone] Mateo Cheema MD Unavailable Ermias Colón MD Unavailable Bonny Cooley MD Unavailable [phone] Pam Hernandez MD Unavailable [phone] Lázaro Horowitz MD Unavailable Jaime Grover MD Unavailable Toni Sheth MD Unavailable Toni Sheth MD Unavailable Bertram Elizabeth MD Unavailable Bonny Cooley MD Unavailable [phone] Aminata Youssef MD Primary Care Provider Bertram Elizabeth MD Unavailable [phone] Alex Johnson MD Unavailable [phone] Bonny Cooley MD Unavailable [phone] Bertram Elizabeth MD Unavailable [phone] Bertram Elizabeth MD Unavailable [phone] Alex Johnson MD Unavailable [phone] Alex Johnson MD Unavailable Encounter Details Date Type Department Care Team (Late st Contact Info) Description 08/27/2019 MyC Medical Advice [facility] [address] [address] Toni Del Angel MD [address] [place] [address] Social History Tobacco Use Types [...] Sex Assigned at Female 08/28/2018 12:23 AM THERMOSTAT MACHINE TENDER Legal Sex Female 4:46 AM THERMOSTAT MACHINE TENDER Gender Identity Female 08/28/2018 12:23 AM THERMOSTAT MACHINE TENDER Sexual Orientation Straight 10/11/2019 2: 51 PM THERMOSTAT MACHINE TENDER documented as of this encounter Plan of Treatment Upcoming Encounters Date Type Department Care Team (Late st Contact Info) Description 04/25/2025 1:30 PM CDT Office Visit [facility] [address] 200 [place] [address] Alex Johnson MD [address] [place] [address] documented as of this encounter Visit Diagnoses Not on filedocumented in this encounter Additional Health Concerns Infection Onset Date Last Indicated Resolved Time COVID-19 06/23/2020 06/23/2020 07/14/2020 11:4 0 PM THERMOSTAT MACHINE TENDER Recovered COVID 07/08/2020 07/08/2020 09/21/2020 1 1:39 PM THERMOSTAT MACHINE TENDER Assessment Noted Time PHQ-9 Depression Total Score: 16 07/24/ 019 2:39 PM THERMOSTAT MACHINE TENDER documented as of this encounter Care Teams Fish Boning Machine Feeder Relationship Specialty Start Date End Date Bonny Cooley MD [address] [place] [address] PCP - General Family Practice 09/30/15 06/02/21 Aminata Youssef MD [facility] & [address] [address] PCP - General Internal Medicine 06/03/21 Bettye Gonzales MD Internal Medicine 04/10/15 Antony Chakraborty MD [address] [phone] MD INTERNAL MEDICINE - ENDOCRINOLOGY, DIABETES & METABOLISM 11/13/15 Mateo Cheema MD [address] 451665 Internal Medicine 08/06/16 Ermias Colón MD [address] [address] Referring Physician Neurology 09/23/16 Bonny Cooley MD [address] [address] Assigned PCP 10/05/15 07/26/20 Pam Hernandez MD [address] [place] [address] [place] [address] Assigned Behavioral Health Provider 05/30/20 08/01/21 Lázaro Horowitz MD [facility] [address] [place] [address] Assigned Rheumatology Provider 05/30/20 07/19/20 Jaime Grover MD [address] [place] [address] Assigned Gastroenterology Provider 05/30/20 11/14/21 Toni Sheth MD [address] [place] [address] [phone] Assigned Pediatric Specialist Provider 05/30/20 09/07/20 Toni Sheth MD [address] [place] [address] Assigned Surgical Provider 05/30/20 04/18/21 Bertram Elizabeth MD [address] [address] Assigned PCP 07/27/20 04/25/21 Bonny Cooley MD [address] [address] Assigned PCP 04/26/21 08/15/21 Bertram Elizabeth MD [address] [address] Assigned PCP 08/16/21 10/24/21 Alex Johnson MD [address] [place] [address] Assigned Rheumatology Provider 10/18/21 04/15/23 Bonny Cooley MD [address] [address] Assigned PCP 10/25/21 04/02/22 Bertram Elizabeth MD [address] [address] Assigned PCP 04/03/22 07/23/22 Bertram Elizabeth MD [address] [address] Assigned PCP 10/02/22 04/29/23 Alex Johnson MD [address] [place] [address] Rheumatology 10/04/24 Alex Johnson MD [address] [place] [address] Assigned Rheumatology Provider 10/28/24 documented as of this encounter
--- OUTSIDE RECORDS SUMMARY | 2025-03-06 17:50 | XMS_ITS | Encounter Summary ---
Author Organization [facility] Address [address] [place] [address] Care Team Providers Care Automotive Metalsmith Name Role Phone Bettye Gonzales MD Unavailable + Bonny Cooley MD Primary Care Provider [phone] Antony Chakraborty MD Unavailable Mateo Cheema MD Unavailable Ermias Colón MD Unavailable Suzanne Fernández RN Unavailable [phone] Bonny Cooley MD Unavailable [phone] Bonny Cooley MD Unavailable [phone] Pam Hernandez MD Unavailable [phone] Lázaro Horowitz MD Unavailable Jaime Grover MD Unavailable Toni Sheth MD Unavailable Toni Sheth MD Unavailable Bertram Elizabeth MD Unavailable Bonny Cooley MD Unavailable [phone] Aminata Youssef MD Primary Care Provider [phone] Bertram Elizabeth MD Unavailable [phone] Alex Johnson MD Unavailable [phone] Bonny Cooley MD Unavailable [phone] Bertram Elizabeth MD Unavailable [phone] Bertram Elizabeth MD Unavailable [phone] Alex Johnson MD Unavailable Alex Johnson MD Unavailable Encounter Details Date Type Department Care Team (Late st Contact Info) Description 12/14/2016 MyC Medical Advice [facility] Endocrinology [address] [facility] [address] [place] [address] Mateo Cheema MD 420 [facility] 101 [place] [address] Social History Tobacco Use Types Packs/Day Years Used Date Smoking Tobacco: Never Smokeless Tobacco: Never Alcohol Use Standard Drinks/Week Comments No 0 (1 standard drink = 0.6 oz pur e alcohol) Comments No Sex and Gender Information Value Date Recorded Sex Assigned at Female 08/28/2018 12:23 AM TYING IN MACHINE OPERATOR Legal Sex Female 4:46 AM TYING IN MACHINE OPERATOR Gender Identity Female 08/28/2018 12:23 AM TYING IN MACHINE OPERATOR Sexual Orientation Straight 10/11/2019 2: 51 PM TYING IN MACHINE OPERATOR documented as of this encounter Plan of Treatment Upcoming Encounters Date Type Department Care Team (Late st Contact Info) Description 04/25/2025 1:30 PM CDT Office Visit [facility] [address] [address] Alex Johnson MD 515 [facility] [address] [place] [address] documented as of this encounter Visit Diagnoses Not on filedocumented in this encounter Additional Health Concerns Infection Onset Date Last Indicated Resolved Time COVID-19 06/23/2020 06/23/2020 07/14/2020 11:4 0 PM TYING IN MACHINE OPERATOR Recovered COVID 07/08/2020 07/08/2020 09/21/2020 1 1:39 PM TYING IN MACHINE OPERATOR Assessment Noted Time PHQ-9 Depression Total Score: 6 09/22/19 17 7:27 AM TYING IN MACHINE OPERATOR documented as of this encounter Care Teams Automotive Metalsmith Relationship Specialty Start Date End Date Bonny Cooley MD [address] [place] [address] PCP - General Family Practice 09/30/15 06/02/21 Bonny Cooley MD [address] [phone] PCP - Assigned PCP 10/05/15 10/10/18 Aminata Youssef MD [facility] [address] [place] [address] PCP - General Internal Medicine 06/03/21 Bettye Gonzales MD Internal Medicine 04/10/15 Antony Chakraborty MD 420 [facility] 101 [place], [place] [address] INTERNAL MEDICINE - ENDOCRINOLOGY, DIABETES & METABOLISM 11/13/15 Mateo Cheema MD 420 [facility] 101 [place], [place] 210835 Internal Medicine 08/06/16 Ermias Colón, MD 420 [facility] 101 [place], [place] 065085 Referring Physician Neurology 09/23/16 Suzanne Fernández, RN [facility] Primary Care - CC 02/28/18 Bonny Cooley MD 2270 [facility] 200 [place] [address] Assigned PCP 10/05/15 07/26/20 Pam Hernandez MD [address] [place] [address] [place] [address] Assigned Behavioral Health Provider 05/30/20 08/01/21 Lázaro Horowitz MD [facility] [address] [place] [address] Assigned Rheumatology Provider 05/30/20 07/19/20 Jaime Grover MD [address] [place] [address] Assigned Gastroenterology Provider 05/30/20 11/14/21 Toni Sheth MD [address] [place] [address] Assigned Pediatric Specialist Provider 05/30/20 09/07/20 [place] [address] [place] [address] Assigned Surgical Provider 05/30/20 04/18/21 Bertram Elizabeth MD [address] [place] [address] Assigned PCP 07/27/20 04/25/21 Bonny Cooley MD 0 [facility] 200 [place] [address] Assigned PCP 04/26/21 08/15/21 Bertram Elizabeth MD [address] [place] [address] Assigned PCP 08/16/21 10/24/21 Alex Johnson MD [address] [place] [address] Assigned Rheumatology Provider 10/18/21 04/15/23 Bonny Cooley MD [address] [place] [address] Assigned PCP 10/25/21 04/02/22 Bertram Elizabeth MD [address] [place] [address] Assigned PCP 04/03/22 07/23/22 Bertram Elizabeth MD [address] [place] [address] Assigned PCP 10/02/22 04/29/23 Alex Johnson MD [address] [place] [address] Rheumatology 10/04/24 Alxe Johnson MD [address] [place] [address] Assigned Rheumatology Provider 10/28/24 documented as of this encounter
--- OUTSIDE RECORDS SUMMARY | 2025-03-06 17:50 | XMS_ITS | Encounter Summary ---
Author Organization [facility] Address [address] [place] [address] Care Team Providers Care Sales Operations Specialist Name Role Phone Bettye Gonzales MD Unavailable + Bonny Cooley MD Primary Care Provider Antony Chakraborty MD Unavailable [phone] Mateo Cheema MD Unavailable [phone] rEmias Colón MD Unavailable Pam Hernandez MD Unavailable Jaime Grover MD Unavailable Bonny Cooley MD Unavailable [phone] Aminata Youssef MD Primary Care Provider Bertram Elizabeth MD Unavailable Alex Johnson MD Unavailable Bonny Cooley MD Unavailable [phone] Bertram Elizabeth MD Unavailable Bertram Elizabeth MD Unavailable Alex Johnson MD Unavailable [phone] Alex Johnson MD Unavailable Reason for Visit * Reason Comments Medication Refill Encounter Details Date Type Department Care Team (Late st Contact Info) Description 05/06/2021 Refill [facility] [place] [phone] Bonny Cooley MD [address] [address] Medication Refill Social History Tobacco Use Types [...] Sex Assigned at Female 08/28/2018 12:23 AM TECHNICAL SUPERVISOR Legal Sex Female 4:46 AM TECHNICAL SUPERVISOR Gender Identity Female 08/28/2018 12:23 AM TECHNICAL SUPERVISOR Sexual Orientation Straight 10/11/2019 2: 51 PM TECHNICAL SUPERVISOR documented as of this encounter Miscellaneous [...] because: PHQ-9 score greater than 4 per [facility] protocol PHQ-9 score: PHQ 01/31/2020 PHQ-9 Total Score 11 Q9: Thoughts of better off /self-harm past 2 weeks Not at all F/U: Thoughts of suicide or self-harm - F/U: Safety concerns - MARY KATE Liu RN [facility] documented in this encounter Plan of Treatment Upcoming Encounters Date Type Department Care Team (Late st Contact Info) Description 04/25/2025 1:30 PM CDT Office Visit [facility] [address] [phone] Alex Johnson MD [address] [place] [address]015 documented as of this encounter Visit Diagnoses Diagnosis Major depressive disorder, recurrent episode, moderate (H) Major depressive disorder, recurrent episode, moderate documented in this encounter Additional Health Concerns Assessment Noted Time PHQ-9 Depression Total Score: 11 020 2:18 PM CDT documented as of this encounter Care Teams Sales Operations Specialist Relationship Specialty Start Date End Date Bonny Cooley MD [address] [place] [address] PCP - General Family Practice 09/30/15 06/02/21 Aminata Youssef MD [facility] 2000 [place] [address] PCP - General Internal Medicine 06/03/21 Bettye Gonzales MD Internal Medicine 04/10/15 Antony Chakraborty MD [address] [address] INTERNAL MEDICINE - ENDOCRINOLOGY, DIABETES & METABOLISM 11/13/15 Mateo Cheema MD [address] [address] Internal Medicine 08/06/16 Ermias Colón MD [address] [address] Referring Physician Neurology 09/23/16 Pam Hernandez MD [address] [place] [address] [place] [address] Assigned Behavioral Health Provider 05/30/20 08/01/21 Jaime Grover MD [address] [place] [address] Assigned Gastroenterology Provider 05/30/20 11/14/21 Bonny Cooley MD [address] [address] Assigned PCP 04/26/21 08/15/21 Bertram Elizabeth MD [address] [address] Assigned PCP 08/16/21 10/24/21 Alex Johnson MD [address] [place] [address] Assigned Rheumatology Provider 10/18/21 04/15/23 Bonny Cooley MD [address] [address] Assigned PCP 10/25/21 04/02/22 Bertram Elizabeth MD [address] [address] Assigned PCP 04/03/22 07/23/22 Bertram Elizabeth MD [address] [address] Assigned PCP 10/02/22 04/29/23 Alex Johnson MD [address] [place] [address] 895955 Rheumatology 10/04/24 Alex Johnson MD [address] [place] [address] 737665 Assigned Rheumatology Provider 10/28/24 documented as of this encounter
--- OUTSIDE RECORDS SUMMARY | 2025-03-06 17:50 | XMS_ITS | Encounter Summary ---
Author Organization [facility] Address [address] [place] [address] Care Team Providers Care Title Insurance Sales Representative Name Role Phone Bettye Gonzales MD Unavailable + Bonny Cooley MD Primary Care Provider [phone] Antony Chakraborty MD Unavailable Mateo Cheema MD Unavailable [phone] Ermias Colón MD Unavailable Suzanne Fernández RN Unavailable [phone] Bonny Cooley MD Unavailable [phone] Bonny Cooley MD Unavailable [phone] Pam Hernandez MD Unavailable [phone] Lázaro Horowitz MD Unavailable Jaime Grover MD Unavailable Toni Sheth MD Unavailable Toni Sheth MD Unavailable Bertram Elizabeth MD Unavailable [phone] Bonny Cooley MD Unavailable [phone] Aminata Youssef MD Primary Care Provider [phone] Bertram Elizabeth MD Unavailable [phone] Alex Johnson MD Unavailable Bonny Cooley MD Unavailable [phone] Bertram Elizabeth MD Unavailable [phone] Bertram Elizabeth MD Unavailable [phone] Alex Johnson MD Unavailable [phone] Alex Johnson MD Unavailable [phone] Reason for Visit * Reason Onset Date Comments Hand Pain 01/03/2017 Edema 01/03/2017 Encounter Details Date Type Department Care Team (Late st Contact Info) Description 01/03/2017 MyC Medical Advice [address] [address] Bonny Cooley MD [address] [address] Hand Pain; Edema Social History Tobacco Use Types Packs/Day Years Used Date Smoking Tobacco: Never Smokeless Tobacco: Never Alcohol Use Standard Drinks/Week Comments No 0 (1 standard drink = 0.6 oz pur e alcohol) Comments No Sex and Gender Information Value Date Recorded Sex Assigned at Female 08/28/2018 12:23 AM CEMENT CAR DUMPER Legal Sex Female 4:46 AM CEMENT CAR DUMPER Gender Identity Female 08/28/2018 12:23 AM CEMENT CAR DUMPER Sexual Orientation Straight 10/11/2019 2: 51 PM CEMENT CAR DUMPER documented as of this encounter Miscellaneous Notes * Telephone Encounter - Nolvia Townsend RN - 01/04/2017 5:04 PM CDT Message to patient regarding X-ray and follow up. MARY KATE Lorenzana, RN [facility] * Telephone Encounter - Bonny Cooley MD [...] another office visit be recommended for evaluation? Meal Cooker also pended rheumatology referral. Thank you! MARY KATE Johnson, RN documented in this encounter Plan of Treatment Upcoming Encounters Date Type Department Care Team (Late st Contact Info) Description 04/25/2025 1:30 PM CDT Office Visit [facility] Specialty [address] [address] Alex Johnson MD [address] [place] [address]15 documented as of this encounter Results * [...] COVID-19 06/23/2020 06/23/2020 07/14/2020 11:4 0 PM CEMENT CAR DUMPER Recovered COVID 07/08/2020 07/08/2020 09/21/2020 1 1:39 PM CEMENT CAR DUMPER Assessment Noted Time PHQ-9 Depression Total Score: 6 09/22/19 17 7:27 AM CEMENT CAR DUMPER documented as of this encounter Care Teams Title Insurance Sales Representative Relationship Specialty Start Date End Date Bonny Cooley MD [address] [place] [address] PCP - General Family Practice 09/30/15 06/02/21 Bonny Cooley MD [address] [phone] PCP - Assigned PCP 10/05/15 10/10/18 Aminata Youssef MD [facility] & [address] [address] PCP - General Internal Medicine 06/03/21 Bettye Gonzales MD Internal Medicine 04/10/15 Antony Chakraborty MD [address] 8[address] INTERNAL MEDICINE - ENDOCRINOLOGY, DIABETES & METABOLISM 11/13/15 Mateo Cheema MD [address] 868465 Internal Medicine 08/06/16 Ermias Colón MD [address] 85[address] Referring Physician Neurology 09/23/16 Suzanne Fernández, RN Clinic Hoisting Engineer Pile Driving Primary Care - CC 02/28/18 Bonny Cooley MD [address] [address] Assigned PCP 10/05/15 07/26/20 Pam Hernandez MD [address] [place] [address] [place] [address] Assigned Behavioral Health Provider 05/30/20 08/01/21 Lázaro Horowitz MD [place] [address] [place] [address] Assigned Rheumatology Provider 05/30/20 07/19/20 Jaime Grover MD [address] [place] [address] Assigned Gastroenterology Provider 05/30/20 11/14/21 Toni Sheth MD [address] [place] [address] Assigned Pediatric Specialist Provider 05/30/20 09/07/20 Toni Sheth MD [address] [place] [address] Assigned Surgical Provider 05/30/20 04/18/21 Bertram Elizabeth MD [address] [address] Assigned PCP 07/27/20 04/25/21 Bonny Cooley MD [address] [address] Assigned PCP 04/26/21 08/15/21 Bertram Elizabeth MD [address] [address] Assigned PCP 08/16/21 10/24/21 Alex Johnson MD [address] [place] [address] Assigned Rheumatology Provider 10/18/21 04/15/23 Bonny Cooley MD [address] [address] Assigned PCP 10/25/21 04/02/22 Bertram Elizabeth MD [address] [address] Assigned PCP 04/03/22 07/23/22 Bertram Elizabeth MD [address] [place] [address] Assigned PCP 10/02/22 04/29/23 Alex Johnson MD [address] [place] [address] Rheumatology 10/04/24 Alex Johnson MD [address] [place] [address] Assigned Rheumatology Provider 10/28/24 documented as of this encounter
--- OUTSIDE RECORDS SUMMARY | 2025-03-06 17:50 | XMS_ITS | Encounter Summary ---
Author Organization [facility] Address [address] [place] [address] Care Team Providers Care Assistant Terminal Manager Name Role Phone Bettye Gonzales MD Unavailable + Bonny Cooley MD Primary Care Provider Antony Chakraborty MD Unavailable Mateo Cheema MD Unavailable [phone] Ermias Colón MD Unavailable Bonny Cooley MD Unavailable [phone] Bonny Cooley MD Unavailable [phone] Pam Hernandez MD Unavailable [phone] Lázaro Horowitz MD Unavailable Jaime Grover MD Unavailable Toni Sheth MD Unavailable Toni Sheth MD Unavailable Bertram Elizabeth MD Unavailable Bonny Cooley MD Unavailable [phone] Aminata Youssef MD Primary Care Provider Bertram Elizabeth MD Unavailable [phone] Alex Johnson MD Unavailable Bonny Cooley MD Unavailable [phone] Bertram Elizabeth MD Unavailable [phone] Bertram Elizabeth MD Unavailable [phone] Alex Johnson MD Unavailable Alex Johnson MD Unavailable Encounter Details Date Type Department Care Team (Late st Contact Info) Description 08/07/2018 MyC Medical Advice [address] [address] [facility] Social History Tobacco Use Types Packs/Day Years Used Date Smoking Tobacco: Former Cigarettes 2 3 0 04/23/1976 - 12/17/1977 Smokeless Tobacco: Never Alcohol Use Standard Drinks/Week Comments No 0 (1 standard drink = 0.6 oz pur e alcohol) Comments No Sex and Gender Information Value Date Recorded Sex Assigned at Female 08/28/2018 12:23 AM LEAD INFORMATICA DEVELOPER Legal Sex Female 4:46 AM LEAD INFORMATICA DEVELOPER Gender Identity Female 08/28/2018 12:23 AM LEAD INFORMATICA DEVELOPER Sexual Orientation Straight 10/11/2019 2: 51 PM LEAD INFORMATICA DEVELOPER documented as of this encounter Plan of Treatment Upcoming Encounters Date Type Department Care Team (Late Contact Info) Description 04/25/2025 1:30 PM CDT Office Visit [facility] [address] [address] Alex Johnson MD [address] [place] [address] documented as of this encounter Visit Diagnoses Not on filedocumented in this encounter Additional Health Concerns Infection Onset Date Last Indicated Resolved Time COVID-19 06/23/2020 06/23/2020 07/14/2020 11:4 0 PM LEAD INFORMATICA DEVELOPER Recovered COVID 07/08/2020 07/08/2020 09/21/2020 1 1:39 PM LEAD INFORMATICA DEVELOPER Assessment Noted Time PHQ-9 Depression Total Score: 13 018 7:20 AM LEAD INFORMATICA DEVELOPER documented as of this encounter Care Teams Assistant Terminal Manager Relationship Specialty Start Date End Date Bonny Cooley MD [address] [place] [address] PCP - General Family Practice 09/30/15 06/02/21 Bonny Cooley MD [address] [phone] PCP - Assigned PCP 10/05/15 10/10/18 Aminata Youssef MD [facility] [address] [place] [address] PCP - General Internal Medicine 06/03/21 Bettye Gonzales MD Internal Medicine 04/10/15 Antony Chakraborty MD [address] [place] [address] [phone] INTERNAL MEDICINE - ENDOCRINOLOGY, DIABETES & METABOLISM 11/13/15 Mateo Cheema MD [address] [place] [address] 148485 Internal Medicine 08/06/16 Ermias Colón MD [address] [place] [address] [address] Referring Physician Neurology 09/23/16 Bonny Cooley MD [address] [place] [address] Assigned PCP 10/05/15 07/26/20 Pam Hernandez MD [address] [place] [address] [place] [address] Assigned Behavioral Health Provider 05/30/20 08/01/21 Lázaro Horowitz MD [address] [address] Assigned Rheumatology Provider 05/30/20 07/19/20 Jaime Grover MD [address] [place] [address] Assigned Gastroenterology Provider 05/30/20 11/14/21 Toni Sheth MD [address] [place] [address] Assigned Pediatric Specialist Provider 05/30/20 09/07/20 Toni Sheth MD [address] [place] [address] Assigned Surgical Provider 05/30/20 04/18/21 [place] [address] [place] [address] Assigned PCP 07/27/20 04/25/21 Bonny Cooley MD [address] [place] [address] Assigned PCP 04/26/21 08/15/21 Bertram Elizabeth MD [address] [address] Assigned PCP 08/16/21 10/24/21 Alex Johnson MD [address] [place] [address] Assigned Rheumatology Provider 10/18/21 04/15/23 Bonny Cooley MD [address] [address] Assigned PCP 10/25/21 04/02/22 Bertram Elizabeth MD [address] [address] Assigned PCP 04/03/22 07/23/22 Bertram Elizabeth MD [address] [address] Assigned PCP 10/02/22 04/29/23 Alex Johnson MD [address] [place] [address] Rheumatology 10/04/24 Alex Johnson MD [address] [place] [address] Assigned Rheumatology Provider 10/28/24 documented as of this encounter
--- OUTSIDE RECORDS SUMMARY | 2025-03-06 17:50 | XMS_ITS | Encounter Summary ---
Author Organization [facility] Address [address] [place] [address] Care Team Providers Care Sql Developer Dba Name Role Phone Bettye Gonzales MD Unavailable + Bonny Cooley MD Primary Care Provider Antony Chakraborty MD Unavailable Mateo Cheema MD Unavailable [phone] Ermias Colón MD Unavailable Suzanne Fernández RN Unavailable [phone] Bonny Cooley MD Unavailable [phone] Bonny Cooley MD Unavailable [phone] Pam Hernandez MD Unavailable [phone] Lázaro Horowitz MD Unavailable Jaime Grover MD Unavailable Toni Sheth MD Unavailable Toni Sheth MD Unavailable Bertram Elizabeth MD Unavailable Bonny Cooley MD Unavailable +[phone] Aminata Youssef MD Primary Care Provider Bertram Elizabeth MD Unavailable +[phone]- Alex Johnson MD Unavailable [phone] Bonny Cooley MD Unavailable +[phone] Bertram Elizabeth MD Unavailable +1- Bertram Elizabeth MD Unavailable [phone] Alex Johnson MD Unavailable [phone] Alex Johnson MD Unavailable [phone] Reason for Visit * Reason Onset Date Comments Refill Request 07/14/2017 methotrexate Encounter Details Date Type Department Care Team (Latest Contact Info) Description 07/14/2017 [facility] [place] Advice [address] [address] Lázaro Horowitz MD [address] [address] Refill Request (methotrexate) Social History Tobacco Use Types Packs/Day Years Used Date Smoking Tobacco: Former Cigarettes 2 3 0 04/23/1976 - 12/17/1977 Smokeless Tobacco: Never Alcohol Use Standard Drinks/Week Comments No 0 (1 standard drink = 0.6 oz pur e alcohol) Comments No Sex and Gender Information Value Date Recorded Sex Assigned at Female 08/28/2018 12:23 AM MIND READER Legal Sex Female 4:46 AM MIND READER Gender Identity Female 08/28/2018 12:23 AM MIND READER Sexual Orientation Straight 10/11/2019 2: 51 PM MIND READER documented as of this encounter Miscellaneous Notes * Telephone Encounter - Esme Cabello RN - 07/14/2017 9:45 AM MIND READER Pt sent [facility] message that she is [...] 90 days) Aug 09, 2017 9:15 AM MIND READER Return Visit with Lázaro Horowitz MD 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, landing gear mechanic Nurse READER * Telephone Encounter - Ignacia Robertson RN - 07/14/2017 9:35 AM MIND READER Refill request for METHOTREXATE 20 QWK (THURSDAYS) [...] 0.72 04/12/2017 No results found for: URIC READER documented in this encounter Plan of Treatment Upcoming Encounters Date Type Department Care Team (Late st Contact Info) Description 04/25/2025 1:30 PM CDT Office Visit [facility] [place] [address] [address] [phone] Alex Johnson MD 515 [facility] [address] [place], [place] [address] documented as of this encounter Visit Diagnoses Diagnosis Rheumatoid arthritis of multiple sites without rheumatoid factor (H) Rheumatoid arthritis documented in this encounter Additional Health Concerns Infection Onset Date Last Indicated Resolved Time COVID-19 06/23/2020 06/23/2020 07/14/2020 11:4 0 PM MIND READER Recovered COVID 07/08/2020 07/08/2020 09/21/2020 1 1:39 PM MIND READER Assessment Noted Time PHQ-9 Depression Total Score: 17 017 1:13 PM CDT documented as of this encounter Care Teams Sql Developer Dba Relationship Specialty Start Date End Date Bonny Cooley MD [address] [place] [address] PCP - General Family Practice 09/30/15 06/02/21 Bonny Cooley MD [address] [address] PCP - Assigned PCP 10/05/15 10/10/18 Aminata Youssef MD [facility] [address] [place] [address] PCP - General Internal Medicine 06/03/21 Bettye Gonzales MD Internal Medicine 04/10/15 Antony Chakraborty MD 420 [facility] [address] [place] [address] INTERNAL MEDICINE - ENDOCRINOLOGY, DIABETES & METABOLISM 11/13/15 Mateo Cheema MD [address] [address] Internal Medicine 08/06/16 Ermias Colón MD [address] [address] Referring Physician Neurology 09/23/16 Suzanne Fernández, [facility] Studio Designer Primary Care - CC 02/28/18 Bonny Cooley MD [address] [address] Assigned PCP 10/05/15 07/26/20 Pam Hernandez MD [address] [place] [address] [place] [address] Assigned Behavioral Health Provider 05/30/20 08/01/21 Lázaro Horowitz MD [facility] [address] [place] [address] Assigned Rheumatology Provider 05/30/20 07/19/20 Jaime Grover MD [address] [place] [address] Assigned Gastroenterology Provider 05/30/20 11/14/21 Toni Sheth MD [address] [place] [id number] Assigned Pediatric Specialist Provider 05/30/20 09/07/20 Toni Sheth MD [address] [place] [address] Assigned Surgical Provider 05/30/20 04/18/21 Bertram Elizabeth MD [facility] [address] [address] Assigned PCP 07/27/20 04/25/21 Bonny Cooley MD [facility] [address] [address] Assigned PCP 04/26/21 08/15/21 Bertram Elizabeth MD [address] [place] [address] Assigned PCP 08/16/21 10/24/21 Alex Johnson MD [address] [place] [address] Assigned Rheumatology Provider 10/18/21 04/15/23 Bonny Cooley MD [address] [place] [address] Assigned PCP 10/25/21 04/02/22 Bertram Elizabeth MD [address] [place] [address] Assigned PCP 04/03/22 07/23/22 Bertram Elizabeth MD [address] [place] [address] Assigned PCP 10/02/22 04/29/23 Alex Johnson MD [address] [place] [address] Rheumatology 10/04/24 Alex Johnson MD [address] [place] [address] Assigned Rheumatology Provider 10/28/24 documented as of this encounter
--- OUTSIDE RECORDS SUMMARY | 2025-03-06 17:50 | XMS_ITS | Encounter Summary ---
Author Organization [facility] Address [address] [place] [address] Care Team Providers Care Internal Combustion Engine Inspector Name Role Phone Bettye Gonzales MD Unavailable + Bonny Cooley MD Primary Care Provider Antony Chakraborty MD Unavailable Mateo Cheema MD Unavailable [phone] Ermias Colón MD Unavailable Bonny Cooley MD Unavailable [phone] Bonny Cooley MD Unavailable [phone] Pam Hernandez MD Unavailable [phone] Lázaro Horowitz MD Unavailable Jaime Grover MD Unavailable [phone] Toni Sheth MD Unavailable Toni Sheth MD Unavailable Betrram Elizabeth MD Unavailable Bonny Cooley MD Unavailable [phone] Aminata Youssef MD Primary Care Provider Bertram Elizabeth MD Unavailable [phone] Alex Johnson MD Unavailable Bonny Cooley MD Unavailable [phone] Bertram Elizabeth MD Unavailable [phone] Bertram Elizabeth MD Unavailable [phone] Alex Johnson MD Unavailable Alex Johnson MD Unavailable [phone] Encounter Details Date Type Department Care Team (Late st Contact Info) Description 06/30/2018 [facility]ice [address] [address] Noe Camarena RN Social History Tobacco Use Types Packs/Day Years Used Date Smoking Tobacco: Former Cigarettes 2 3 0 04/23/1976 - 12/17/1977 Smokeless Tobacco: Never Alcohol Use Standard Drinks/Week Comments No 0 (1 standard drink = 0.6 oz pur e alcohol) Comments No Sex and Gender Information Value Date Recorded Sex Assigned at Female 08/28/2018 12:23 AM HVAC SALES REPRESENTATIVE Legal Sex Female 4:46 AM HVAC SALES REPRESENTATIVE Gender Identity Female 08/28/2018 12:23 AM HVAC SALES REPRESENTATIVE Sexual Orientation Straight 10/11/2019 2: 51 PM HVAC SALES REPRESENTATIVE documented as of this encounter Plan of Treatment Upcoming Encounters Date Type Department Care Team (Late st Contact Info) Description 04/25/2025 1:30 PM CDT Office Visit [facility] [address] [place] [address] Alex Johnson MD [address] [place] [address] documented as of this encounter Visit Diagnoses Not on filedocumented in this encounter Additional Health Concerns Infection Onset Date Last Indicated Resolved Time COVID-19 06/23/2020 06/23/2020 07/14/2020 11:4 0 PM HVAC SALES REPRESENTATIVE Recovered COVID 07/08/2020 07/08/2020 09/21/2020 1 1:39 PM HVAC SALES REPRESENTATIVE Assessment Noted Time PHQ-9 Depression Total Score: 13 018 7:20 AM HVAC SALES REPRESENTATIVE documented as of this encounter Care Teams Internal Combustion Engine Inspector Relationship Specialty Start Date End Date Bonny Cooley MD [address] [place] [address] PCP - General Family Practice 09/30/15 06/02/21 Bonny Cooley MD [address] [phone] PCP - Assigned PCP 10/05/15 10/10/18 Aminata Youssef MD [facility] & [address] [address] PCP - General Internal Medicine 06/03/21 Bettye Gonzales MD Internal Medicine 04/10/15 Antony Chakraborty MD [address] [phone] INTERNAL MEDICINE - ENDOCRINOLOGY, DIABETES & METABOLISM 11/13/15 Mateo Cheema MD [address] 9[address] Internal Medicine 08/06/16 Ermias Colón MD [address] 814[address] Referring Physician Neurology 09/23/16 Bonny Cooley MD [address] [place] [address] Assigned PCP 10/05/15 07/26/20 Pam Hernandez MD [address] [place] [address] [place] [address] Assigned Behavioral Health Provider 05/30/20 08/01/21 Lázaro Horowitz MD [address] [address] Assigned Rheumatology Provider 05/30/20 07/19/20 Jaime Grover MD [address] [place] [address] Assigned Gastroenterology Provider 05/30/20 11/14/21 Toni Sheth MD [address] [place] [address] Assigned Pediatric Specialist Provider 05/30/20 09/07/20 Toni Sheth MD [address] [place] [address] Assigned Surgical Provider 05/30/20 04/18/21 [place] [address] [place] [address] Assigned PCP 07/27/20 04/25/21 Bonny Cooley MD [address] [address] Assigned PCP 04/26/21 08/15/21 Bertram Elizabeth MD [address] [address] Assigned PCP 08/16/21 10/24/21 Alex Johnson MD [address] [place] [address] Assigned Rheumatology Provider 10/18/21 04/15/23 Bonny Cooley MD [address] [address] Assigned PCP 10/25/21 04/02/22 Bertram Elizabeth MD [address] [address] Assigned PCP 04/03/22 07/23/22 Bertram Elizabeth MD [address] [address] Assigned PCP 10/02/22 04/29/23 Alex Johnson MD [address] [place] [address] Rheumatology 10/04/24 Alex Johnson MD [address] [place] [address] Assigned Rheumatology Provider 10/28/24 documented as of this encounter
--- OUTSIDE RECORDS SUMMARY | 2025-03-06 17:50 | XMS_ITS | Clinical Summary ---
Author Organization [facility] Address [address] [place] [address] Care Team Providers Care Transmission Mechanic Name Role Phone Bettye Gonzales MD Unavailable + Antony Chakraborty MD Unavailable Mateo Cheema MD Unavailable Ermias Colón MD Unavailable Aminata Youssef MD Primary Care Provider [phone] Alex Johnson MD Unavailable Alex Johnson MD Unavailable Allergies Active Allergy Reactions Criticality Noted Date Comments Dust Mites 11/19/2013 Milk (Cow) Other (See Comments) 12/01/2018 foggy and tired Mold 11/19/2013 Pollen Extract 12/01/2018 Other reaction(s): Headache Trees 11/19/2013 Medications Evening [place] Oil CAPS Take 1,300 mg by mouth [...] CAPSULE BY MOUTH EVERY EVENING 90 capsule Active Additional Information Patient not taking.Reported on 10/09/2024 nystatin (MYCOSTATIN) [id number] UNIT/GM external powderIndications :Intertrigo Apply topically 2 [...] MOUTH EVERY MORNING 90 tablet 021 Active methotrexate 2.5 MG tabletIndications :Rheumatoid arthritis of multiple sites without rheumatoid factor (H) TAKE 6 TABLETS BY MOUTH EVERY WEEK 24 tablet 6 025 Active folic acid (FOLVITE) 1 MG tabletIndications :Rheumatoid arthritis of multiple sites without rheumatoid factor (H) TAKE 4 TABLETS(4 MG) BY MOUTH DAILY. 120 tablet 6 025 Active folic acid (FOLVITE) 1 MG tabletIndications :Rheumatoid arthritis of multiple sites without rheumatoid factor (H) TAKE 4 TABLETS(4 MG) BY MOUTH DAILY. FOLLOW-UP WITH DOCTOR WERO. 120 tablet 1 025 2024 Discontinued Active Problems Problem Noted [...] to review. 01/19/2012 Metatarsal fracture 10/08/2008 04/01/20 Hyperlipidemia LDL goal <160 07/05/2012 Encounters Date Type Department Care Team Description 02/05/2025 Refill [facility] Rheumatology [address] [phone] Alex Johnson MD Refill Request (Folic acid) 12/31/[address] [phone] Alex Johnson MD Refill Request (/methotrexate 2.5 MG tablet /) 12/14/2024 Refill [facility] Rheumatology [address] [phone] Alex Johnson MD Medication Refill from Last 3 Months Immunizations Immunization Administration Dates Next Due Influenza (H1N1) 08/14/2009 [...] Sex Assigned at Female 08/28/2018 12:23 AM FIG WASHER Legal Sex Female 4:46 AM FIG WASHER Gender Identity Female 08/28/2018 12:23 AM FIG WASHER Sexual Orientation Straight 10/11/2019 2: 51 PM FIG WASHER Last Filed Vital Signs Vital Sign Reading Time Taken Comments Blood Pressure 135/69 07/08/2020 10:47 AM FIG WASHER Pulse 80 07/08/2020 10:47 AM FIG WASHER Temperature 37 C (98.6 F) 04/23/2020 4:29 PM CDT Respiratory Rate 25 07/08/2020 10:05 AM FIG WASHER Oxygen Saturation 98% 07/08/2020 10:49 AM FIG WASHER Inhaled Oxygen Concentration - - Weight 81.6 kg (180 lb) 05/14/2020 2:51 PM CDT Height 166.4 cm (5' 5.5) 05/14/2020 2:51 PM CDT Body Mass Index 29.5 05/14/2020 2:51 PM CDT Plan of Treatment Upcoming Encounters Date Type Department Care Team (Late st Contact Info) Description 04/25/2025 1:30 PM CDT Office Visit [facility] [address] [place] [address] Alex Johnson MD [address] [place] [address] Health Maintenance Due Date Last Done Comments ANNUAL REVIEW OF HM ORDERS 1944 ZOSTER VACCINE (1 of 2) 07/07/2011 05/12/2011 MEDICARE ANNUAL WELLNESS VISIT 05/01/2016 05/01/2015, 09/25/2013, 05/12/2011 ADVANCE CARE PLANNING 01/18/2017 01/19/2012, 012 LIPID 12/21/2018 12/21/2017, 04/09, 09/25/2013, Additional history exists RSV VACCINE (1 - 1-dose 75+ series) 2019 BMP 07/24/2020 07/24/2019, 08/09, 08/07/2018, Additional history exists PHQ-9 08/01/2020 01/31/2020, /, 09/04/2019, Additional history exists FALL RISK ASSESSMENT 10/17/2020 10/18/2019, 12/28/2016, 05/11/2016, Additional history exists DIABETES SCREENING 07/24/2022 07/24/2019, 0 08/28/2018, 08/07/2018, Additional history exists COVID-19 VACCINE ( season) 2024 11/24/2023, 05/30/2022, 01/24/2022, Additional history exists INFLUENZA VACCINE (#1) 2025 2, 05/04/2021, 05/16/2020, Additional history exists DTAP/TDAP/TD VACCINE (2 - Td or Tdap) 12/22/2027 12/21/2017 DEXA 12/11/2031 12/10/2016, 12/2016, 09/13/2013, Additional history exists DEPRESSION ACTION PLAN Completed 8, 12/31/2016, 12/31/2016, Additional history exists PNEUMOCOCCAL VACCINE 50+ YEARS Completed 12/21/2017, 05/12/2011 MAMMO SCREENING Discontinued 08/16/2018, 09/2014, 05/07/2015 COLONOSCOPY Discontinued 07/08/2020, 08/2019, 08/20/2011 COLORECTAL CANCER SCREENING Discontinued LUNG CANCER SCREENING Discontinued 10/30/2024 CT COLONOGRAPHY Discontinued FIT Discontinued FLEX SIG Discontinued HPV VACCINE (No Doses Required) Completed MENINGITIS VACCINE Aged Out No longer eligible based on patient's age to complete this topic sDNA (Cologuard) Discontinued Procedures Procedure Name Priority Date/Time Associated Diagnosis Comments COLONOSCOPY Routine 07/08/2020 8:56 AM FIG WASHER COMPREHENSIVE METABOLIC PANEL Routine 07/24/2019 3:29 PM FIG WASHER Other fatigue MA SCREENING DIGITAL BILATERAL Routine 08/16/2018 11:45 AM FIG WASHER Encounter for screening mammogram for breast cancer LIPID PROFILE Routine 12/21/2017 1:42 PM CDT Hyperlipidemia with target LDL less than 130 DX BONE DENSITY Routine 12/10/2016 5:01 PM CDT Osteoporosis from Last 3 Months or Most Recently Relevant to Health Maintenance Results * COLONOSCOPY (07/08/2020 8:56 AM FIG WASHER) [address] [place] [address] [phone] Endoscopy Department Patient Name: Lowell Miller Procedure [...] of the exam. Signature of teaching physician [id number] Grover MD Number of Addenda: 0 Note Initiated On: 07/08/2020 8:56 AM Scope In: Scope Out: RADIOLOGY RESULTS 07/08/2020 8:56 AM FIG WASHER Bonny Cooley MD PROCEDURES Final Result RADIOLOGY RESULTS * (ABNORMAL) Comprehensive metabolic panel (BMP + Alb, Alk Phos, ALT, AST, Total. Bili, TP) (07/24/2019 3:29 PM FIG WASHER) Sodium 143 133 - 144 mmol/L 07/25/2019 9:58 AM [facility] Potassium 4.5 3.4 - 5.3 mmol/L 07/25/2019 9:58 AM [facility] Chloride 112(H) 94 - 109 mmol/L 07/25/2019 9:58 AM [facility] Carbon Dioxide 24 20 - 32 mmol/L 07/25/2019 10:31 AM [facility] Anion Gap 7 3 - 14 mmol/L 07/25/2019 10:31 AM [facility] Glucose 92 70 - 99 mg/dL 07/25/2019 10:31 AM [facility] Comment:Non Fasting Urea Nitrogen 19 7 - 30 mg/dL 07/25/2019 10:31 AM [facility] Creatinine 0.80 0.52 - 1.04 mg/dL 07/25/2019 10:31 AM [facility] GFR Estimate 72 >60 mL/min/{1 .73_m2} 07/25/2019 10:31 AM [facility] Comment: Non GFR Calc Starting 07/25/2018, serum creatinine based estimated GFR (eGFR) will be calculated using the Chronic Kidney Disease Epidemiology Collaboration (CKD-EPI) equation. GFR Estimate If Black 84 >60 mL/min/{1 .73_m2} 07/25/2019 10:31 AM [facility] Comment: GFR Calc Starting 07/25/2018, serum creatinine based estimated GFR (eGFR) will be calculated using the Chronic Kidney Disease Epidemiology Collaboration (CKD-EPI) equation. Calcium 9.9 8.5 - 10.1 mg/dL 07/25/2019 10:31 AM [facility] Bilirubin Total 0.3 0.2 - 1.3 mg/dL 07/25/2019 10:36 AM [facility] Albumin 3.8 3.4 - 5.0 g/dL 07/25/2019 10:36 AM [facility] Protein Total 6.8 6.8 - 8.8 g/dL 07/25/2019 10:36 AM [facility] Alkaline Phosphatase 97 40 - 150 U/L 07/25/2019 10:36 AM [facility] ALT 34 0 - 50 U/L 07/25/2019 10:36 AM [facility] AST 21 0 - 45 U/L 07/25/2019 10:36 AM [facility] Blood specimen (specimen) 07/24/2019 3:29 PM FIG WASHER 07/24/2019 3:30 PM FIG WASHER us Bonny Cooley MD LAB - BLOOD ORDERABLES Final R esult [facility] [address] [place] [address] * *MA Screening Digital Bilateral (08/16/2018 11:45 AM FIG WASHER) Anatomical Region Laterality Modality Breast Bilateral Mammography Impressions 08/17/2018 10:40 AM FIG WASHER IMPRESSION: BI-RADS CATEGORY: 1 - NEGATIVE. RECOMMENDED FOLLOW-UP: Annual Mammography. The patient will be notified of the results. I have personally reviewed the examination and initial interpretation and I agree with the findings. YOSEPH PERALTA MD Narrative 08/17/2018 10:40 AM FIG WASHER Examination: Bilateral digital screening mammography with computer aided detection. History: No symptoms, routine screening. Comparison: Diagnostic mammogram 05/09/2015. Screening mammogram 05/07/2015. BREAST DENSITY: Scattered fibroglandular densities.. Findings: No significant change. us Bonny Cooley MD IMG MAMMOGRAPHY ORDERABLES Fin al Result * (ABNORMAL) Lipid Profile (Chol, Trig, HDL, LDL calc) (12/21/2017 1:42 PM CDT) Cholesterol 203(H) <200 mg/dL 12/22/2017 12:46 PM CDT [facility] Comment:Desirable: <200 mg/d l Triglycerides 101 <150 mg/dL 12/22/2017 12:46 PM CDT [facility] Comment:Non Fasting HDL Cholesterol 54 >49 mg/dL 8 12:46 PM CDT [facility] LDL Cholesterol Calculated 129(H) <100 mg/dL 12/22/2017 12:46 PM CDT [facility] Comment: Above desirable: 100-129 mg/dl Borderline High: 130-159 mg/dL High: 160-189 mg/dL Very high: >189 mg/dl Non HDL Cholesterol 149(H) <130 mg/dL 12/22/2017 12:46 PM CDT [facility] Comment: Above Desirable: 130-159 mg/dl Borderline high: 160-189 mg/dl High: 190-219 mg/dl Very high: >219 mg/dl Blood specimen (specimen) 12/21/2017 1:42 PM CDT 12/21/2017 1:43 PM CDT us Bonny Cooley MD LAB - BLOOD ORDERABLES Final R esult [facility] [address] [place] [address] * DX Hip/Pelvis/Spine (12/10/2016 5:01 PM CDT) Anatomical Region Laterality Modality Dexa Bone Mineral Den sity Narrative 12/10/2016 9:14 PM CDT ATTENTION: Easy to read DXA/VFA reports (formatted and presented as tables) can be found in EPIC under Chart review > Imaging tab > DXA [facility] [address] [place] [address] Phone: Fax: FINAL REPORT Patient name: LOWELL MILLER ([id number] ) Patient demographics: 72.3 year old White Female of 64.5 in. height and 152.0 lbs. weight Ordering provider: BONNY COOLEY History: HIGH CALCIUM, Hyperparathyroid, KIDNEY STONES, LOW BONE DENSITY, LOW VITAMIN D, MS, OVARIES REMOVED (1 OR 2), POSTMENOPAUSAL, reformed tobacco habit Current treatments: PREDNISONE, Vitamin D Scan: DXA exam ([id number] ): CoAxia Prodigy Exam date: 12/10/2016 Comparison: 12/10/2016 09/13/2013 [...] to you and your patient. Principal result belt maker: Abbey Morejon MD, CCD Surfboard Designermulti spindle operator Division of Endocrinology References: 1. ISCD position statements: www.iscd.org (includes the report of the 2015 Position Development Conference) 2. LSC = least significant changes at the [facility] AP spine = 0.032 g/cm2 (01.31.2007) [...] following reason: - parathyroid dysfunction. Template revised 7..2015 Bonny Cooley MD IMG DEXA ORDERABLES Final Resu lt from Last 3 Months or Most Recently Relevant to Health Maintenance Insurance MEDICARE MEDICARE MEDICARE MEDICARE Advance Directives For more information, please contact: [phone] * Full Code (Latest Code Status on File) Date Activated Date Inactivated Comments 08/29/2018 11:12 AM 07/08/2020 8:36 AM Question Answer Comments Code status determined by: Discussion with patie nt/legal decision maker * Full Code Date Activated Date Inactivated Comments 08/28/2018 4:12 PM 08/29/2018 11:12 AM Question Answer Comments Code status determined by: Discussion with patie nt/legal decision maker Care Teams Transmission Mechanic Relationship Specialty Start Date End Date Aminata Youssef MD [facility] [address] [place] [address] PCP - General Internal Medicine 06/03/21 Bettye Gonzales MD Internal Medicine 04/10/15 Antony Chakraborty MD [address] [place] [address] 526395 INTERNAL MEDICINE - ENDOCRINOLOGY, DIABETES & METABOLISM 11/13/15 Mateo Cheema MD [address] [place] [address] [phone] Internal Medicine 08/06/16 Ermias Colón MD [address] [place] [address] [phone] Referring Physician Neurology 09/23/16 Alex Johnson MD [address] [place] [address] [phone] Rheumatology 10/04/24 Alex Johnson MD [address] [place] [address] [phone] Assigned Rheumatology Provider 10/28/24
--- OUTSIDE RECORDS SUMMARY | 2025-03-06 17:50 | XMS_ITS | Encounter Summary ---
Author Organization [place] Address [address] [place] [address] Care Team Providers Care Incoming Inspector Name Role Phone Bettye Gonzales MD Unavailable + Bonny Cooley MD Primary Care Provider [phone] Antony Chakraborty MD Unavailable [phone] Mateo Cheema MD Unavailable [phone] Ermias Colón MD Unavailable Pam Hernandez MD Unavailable Jaime Grover MD Unavailable Toni Sheth MD Unavailable Bertram Elizabeth MD Unavailable Bonny Cooley MD Unavailable [phone] Aminata Youssef MD Primary Care Provider Bertram Elizabeth MD Unavailable [phone] Alex Johnson MD Unavailable Bonny Cooley MD Unavailable [phone] Bertram Elizabeth MD Unavailable [phone] Bertram Elizabeth MD Unavailable Alex Johnson MD Unavailable [phone] Alex Johnson MD Unavailable Reason for Visit * Reason Comments Medication Refill Encounter Details Date Type Department Care Team (Late st Contact Info) Description 03/04/2021 Refill [facility] [address] [place] [phone] Bonny Cooley MD [address] [phone] Medication Refill Social History Tobacco Use Types [...] Sex Assigned at Female 08/28/2018 12:23 AM FLOAT TENDER Legal Sex Female 4:46 AM FLOAT TENDER Gender Identity Female 08/28/2018 12:23 AM FLOAT TENDER Sexual Orientation Straight 10/11/2019 2: 51 PM FLOAT TENDER documented as of this encounter Miscellaneous Notes * Telephone Encounter - Bonny Cooley MD - 03/09/2021 4:39 PM CDT Per previosu my chart - will establish care at [place]. DM * Telephone Encounter - Katlin Madrid RN - 03/09/2021 10:[address] Cooley-Naomie refill given and patient did not follow up. #30 pended. Team Coordinators-Please contact patient to schedule annual physical. Thank you! MARY KATE Carr, RN [facility] documented in this encounter Plan of Treatment Upcoming Encounters Date Type Department Care Team (Late st Contact Info) Description 04/25/2025 1:30 PM CDT Office Visit [facility] [address] [phone] Alex Johnson MD [address] [place] [address] [id number] documented as of this encounter Visit Diagnoses Diagnosis Essential hypertension with goal blood pressure less than 140/90 documented in this encounter Additional Health Concerns Assessment Noted Time PHQ-9 Depression Total Score: 11 020 2:18 PM CDT documented as of this encounter Care Teams Incoming Inspector Relationship Specialty Start Date End Date Bonny Cooley MD [address] [place] [address] PCP - General Family Practice 09/30/15 06/02/21 Aminata Youssef MD [facility] [address] [place] [address] PCP - General Internal Medicine 06/03/21 Bettye Gonzales MD Internal Medicine 04/10/15 Antony Chakraborty MD [address] [place] [address] 833145 INTERNAL MEDICINE - ENDOCRINOLOGY, DIABETES & METABOLISM 11/13/15 Mateo Cheema MD [address] [place] [address] 691105 Internal Medicine 08/06/16 Ermias Colón MD [address] [place] [address] Referring Physician Neurology 09/23/16 Pam Hernandez MD [address] [place] [address] [place] [id number] Assigned Behavioral Health Provider 05/30/20 08/01/21 Jaime Grover MD [address] [place] [address] Assigned Gastroenterology Provider 05/30/20 11/14/21 Toni Sheth MD [address] [place] [address]137 Assigned Surgical Provider 05/30/20 04/18/21 Bertram Elizabeth MD [address] [place] [address]75 Assigned PCP 07/27/20 04/25/21 Bonny Cooley MD [address] [place] [address]26[address] Assigned PCP 04/26/21 08/15/21 Bertram Elizabeth MD [address] [place] [address] Assigned PCP 08/16/21 10/24/21 Alex Johnson MD [address] [place] [address] Assigned Rheumatology Provider 10/18/21 04/15/23 Bonny Cooley MD [address] [address] Assigned PCP 10/25/21 04/02/22 eBrtram Elizabeth MD [address] [address] Assigned PCP 04/03/22 07/23/22 Bertram Elizabeth MD [address] [address] Assigned PCP 10/02/22 04/29/23 Alex Johnson MD [address] [place] [address] Rheumatology 10/04/24 Alex Johnson MD [address] [place] [address]138 Assigned Rheumatology Provider 10/28/24 documented as of this encounter
--- OUTSIDE RECORDS SUMMARY | 2025-03-06 17:50 | XMS_ITS | Encounter Summary ---
Author Organization [place] Address [address] [place] [address] Care Team Providers Care Booker Name Role Phone Bettye Gonzales MD Unavailable + Bonny Cooley MD Primary Care Provider Antony Chakraborty MD Unavailable [phone] Mateo Cheema MD Unavailable [phone] Ermias Colón MD Unavailable Pam Hernandez MD Unavailable Jaime Grover MD Unavailable Bonny Cooley MD Unavailable [phone] Aminata Youssef MD Primary Care Provider [phone] Bertram Elizabeth MD Unavailable Alex Johnson MD Unavailable Bonny Cooley MD Unavailable [phone] Bertram Elizabeth MD Unavailable Bertram Elizabeth MD Unavailable Alex Johnson MD Unavailable Alex Johnson MD Unavailable Reason for Visit * Reason Comments Medication Refill Encounter Details Date Type Department Care Team (Late st Contact Info) Description 05/11/[address] 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 [address] [place] [phone] Alex Johnson MD [address] [place] [address] documented as of this encounter Visit Diagnoses Diagnosis Major depressive disorder, recurrent episode, moderate (H) Major depressive disorder, recurrent episode, moderate documented in this encounter Additional Health Concerns Assessment Noted Time PHQ-9 Depression Total Score: 11 020 2:18 PM CDT documented as of this encounter Care Teams Booker Relationship Specialty Start Date End Date Bonny Cooley MD [address] [place] [address] PCP - General Family Practice 09/30/15 06/02/21 Aminata Youssef MD [facility] [address] [address] PCP - General Internal Medicine 06/03/21 Bettye Gonzales MD MD Internal Medicine 04/10/15 Antony Chakraborty MD [address] [address] MD INTERNAL MEDICINE - ENDOCRINOLOGY, DIABETES & METABOLISM 11/13/15 Mateo Cheema MD [address] [address] Internal Medicine 08/06/16 Ermisa Colón MD [address] [address] Referring Physician Neurology 09/23/16 Pam Hernandez MD [address] [place] [address] [place] [address] Assigned Behavioral Health Provider 05/30/20 08/01/21 Jaime Grover MD [address] [place] [address] Assigned Gastroenterology Provider 05/30/20 11/14/21 Bonny Cooley MD [address] [address] Assigned PCP 04/26/21 08/15/21 Bertram Elizabeth MD [address] [place] [address] Assigned PCP 08/16/21 10/24/21 Alex Johnson MD [address] [place] [address] Assigned Rheumatology Provider 10/18/21 04/15/23 Bonny Cooley MD [address] [address] Assigned PCP 10/25/21 04/02/22 Bertram Elizabeth MD [address] [address] Assigned PCP 04/03/22 07/23/22 Bertram Elizabeth MD [address] [address] Assigned PCP 10/02/22 04/29/23 Alex Johnson MD [address] [place] [address] Rheumatology 10/04/24 Alex Johnson MD [address] [place] [address] Assigned Rheumatology Provider 10/28/24 documented as of this encounter
--- OUTSIDE RECORDS SUMMARY | 2025-03-06 17:50 | XMS_ITS | Encounter Summary ---
Author Organization [place] Address [address] [place] [address] Care Team Providers Care Social Welfare Clerk Name Role Phone Bettye Gonzales MD Unavailable + Bonny Cooley MD Primary Care Provider Antony Chakraborty MD Unavailable [phone] Mateo Cheema MD Unavailable [phone] Ermias Colón MD Unavailable Bonny Cooley MD Unavailable [phone] Pam Hernandez MD Unavailable [phone] Lázaro Horowitz MD Unavailable Jaime Grover MD Unavailable Toni Sheth MD Unavailable Toni Sheth MD Unavailable Bertram Elizabeth MD Unavailable Bonny Cooley MD Unavailable [phone] Aminata Youssef MD Primary Care Provider Bertram Elizabeth MD Unavailable Alex Johnson MD Unavailable [phone] Bonny Cooley MD Unavailable [phone] Bertram Elizabeth MD Unavailable [phone] Bertram Elizabeth MD Unavailable [phone] Alex Johnson MD Unavailable Alex Johnson MD Unavailable [phone] Encounter Details Date Type Department Care Team (Late st Contact Info) Description 02/27/2019 MyC Medical Advice [address] [address] [place] Social History Tobacco [...] Sex Assigned at Female 08/28/2018 12:23 AM NATURAL RESOURCES SPECIALIST Legal Sex Female 4:46 AM NATURAL RESOURCES SPECIALIST Gender Identity Female 08/28/2018 12:23 AM NATURAL RESOURCES SPECIALIST Sexual Orientation Straight 10/11/2019 2: 51 PM NATURAL RESOURCES SPECIALIST documented as of this encounter Plan of Treatment Upcoming Encounters Date Type Department Care Team (Late st Contact Info) Description 04/25/2025 1:30 PM CDT Office Visit [facility] [place] [address] [address] Alex Johnson MD [address] [place] [address] documented as of this encounter Visit Diagnoses Not on filedocumented in this encounter Additional Health Concerns Infection Onset Date Last Indicated Resolved Time COVID-19 06/23/2020 06/23/2020 07/14/2020 11:4 0 PM NATURAL RESOURCES SPECIALIST Recovered COVID 07/08/2020 07/08/2020 09/21/2020 1 1:39 PM NATURAL RESOURCES SPECIALIST Assessment Noted Time PHQ-9 Depression Total Score: 11 019 2:43 PM CDT documented as of this encounter Care Teams Social Welfare Clerk Relationship Specialty Start Date End Date Bonny Cooley MD [address] [place] [address] PCP - General Family Practice 09/30/15 06/02/[address] [facility] [address] [place] [address] PCP - General Internal Medicine 06/03/21 Bettye Gonzales MD Internal Medicine 04/10/15 Antony Chakraborty MD [address] [facility] [address] [address] INTERNAL MEDICINE - ENDOCRINOLOGY, DIABETES & METABOLISM 11/13/15 Mateo Cheema MD [address] [facility] [address] [address] Internal Medicine 08/06/16 Ermias Colón MD [address] [facility] [address] 184735 Referring Physician Neurology 09/23/16 Bonny Cooley MD [address] [address] Assigned PCP 10/05/15 07/26/20 Pam Hernandez MD [address] [place] [address] MALLY LYNNE [address] Assigned Behavioral Health Provider 05/30/20 08/01/21 Lázaro Horowitz MD [facility] [address] [place] [address] Assigned Rheumatology Provider 05/30/20 07/19/20 Jaime Grover MD [address] [place] [address] [phone] Assigned Gastroenterology Provider 05/30/20 11/14/21 Toni Sheth MD [address] [place] [address] [phone] Assigned Pediatric Specialist Provider 05/30/20 09/07/20 Toni Sheth MD [address] [place] [address] [phone] Assigned Surgical Provider 05/30/20 04/18/21 Bertram Elizabeth MD [address] [place] [address] Assigned PCP 07/27/20 04/25/21 Bonny Cooley MD [address] [place] [address] Assigned PCP 04/26/21 08/15/21 Bertram Elizabeth MD [address] [place] [address] Assigned PCP 08/16/21 10/24/21 Alex Johnson MD [address] [place] [address] Assigned Rheumatology Provider 10/18/21 04/15/23 Bonny Cooley MD [address] [address] Assigned PCP 10/25/21 04/02/22 Bertram Elizabeth MD [address] [address] Assigned PCP 04/03/22 07/23/22 Bertram Elizabeth MD [address] [address] Assigned PCP 10/02/22 04/29/23 Alex Johnson MD [address] [place] [address] Rheumatology 10/04/24 Alex Johnson MD [address] [place] [address] Assigned Rheumatology Provider 10/28/24 documented as of this encounter
--- OUTSIDE RECORDS SUMMARY | 2025-03-06 17:50 | XMS_ITS | Encounter Summary ---
Author Organization [place] Address [address] [place] [address] Care Team Providers Care Discharge Specialist Name Role Phone Bettye Gonzales MD Unavailable + Bonny Cooley MD Primary Care Provider Antony Chakraborty MD Unavailable Mateo Cheema MD Unavailable Ermias Colón MD Unavailable Bonny Cooley MD Unavailable [phone] Bonny Cooley MD Unavailable [phone] Pam Hernandez MD Unavailable [phone] Lázaro Horowitz MD Unavailable Jaime Grover MD Unavailable Toni Sheth MD Unavailable Toni Sheth MD Unavailable Bertram Elizabeth MD Unavailable Bonny Cooley MD Unavailable [phone] Aminata Youssef MD Primary Care Provider Bertram Elizabeth MD Unavailable [phone] Alex Johnson MD Unavailable Bonny Cooley MD Unavailable [phone] Bertram Elizabeth MD Unavailable [phone] Bertram Elizabeth MD Unavailable [phone] Alex Johnson MD Unavailable Alex Johnson MD Unavailable [phone] Reason for Visit * Reason Onset Date Comments Lamictal Taper 04/12/2018 Encounter Details Date Type Department Care Team (Late st Contact Info) Description 04/12/2018 MyC Medical Advice [facility] [address] [address] Ermias Colón MD [address] [place], [place] [phone] Lamictal Taper Social History Tobacco Use Types Packs/Day Years Used Date Smoking Tobacco: Former Cigarettes 2 3 0 04/23/1976 - 12/17/1977 Smokeless Tobacco: Never Alcohol Use Standard Drinks/Week Comments No 0 (1 standard drink = 0.6 oz pur e alcohol) Comments No Sex and Gender Information Value Date Recorded Sex Assigned at Female 08/28/2018 12:23 AM METAL MOLD DRESSER Legal Sex Female 4:46 AM METAL MOLD DRESSER Gender Identity Female 08/28/2018 12:23 AM METAL MOLD DRESSER Sexual Orientation Straight 10/11/2019 2: 51 PM METAL MOLD DRESSER documented as of this encounter Miscellaneous Notes [...] PM CDT Office Visit [facility] [address] [address] Alex Johnson MD [address] [place] [address] 348755 documented as of this encounter Visit Diagnoses Diagnosis Generalized anxiety disorder- Primary documented in this encounter Additional Health Concerns Infection Onset Date Last Indicated Resolved Time COVID-19 06/23/2020 06/23/2020 07/14/2020 11:4 0 PM METAL MOLD DRESSER Recovered COVID 07/08/2020 07/08/2020 09/21/2020 1 1:39 PM METAL MOLD DRESSER Assessment Noted Time PHQ-9 Depression Total Score: 12 018 7:15 AM CDT documented as of this encounter Care Teams Discharge Specialist Relationship Specialty Start Date End Date Bonny Cooley MD [address] [place] [address] PCP - General Family Practice 09/30/15 06/02/21 Bonny Cooley MD [address] [phone] PCP - Assigned PCP 10/05/15 10/10/18 Aminata Youssef MD [facility] [address] [place] [address] PCP - General Internal Medicine 06/03/21 Bettye Gonzales MD MD Internal Medicine 04/10/15 Antony Chakraborty MD [address] [place] [address] 400[address] INTERNAL MEDICINE - ENDOCRINOLOGY, DIABETES & METABOLISM 11/13/15 Mateo Cheema MD [address] [place] [address] 842145 Internal Medicine 08/06/16 Ermias Colón MD [address] [place] [address] 451815 Referring Physician Neurology 09/23/16 Bonny Cooley MD [address] [place] [address] Assigned PCP 10/05/15 07/26/20 Pam Hernandez MD [address] [place] [address] [place] [address] Assigned Behavioral Health Provider 05/30/20 08/01/21 Lázaro Horowitz MD [address] [address] Assigned Rheumatology Provider 05/30/20 07/19/20 Jaime Grover MD [address] [place] [address] Assigned Gastroenterology Provider 05/30/20 11/14/21 Toni Sheth MD [address] [place] [address] Assigned Pediatric Specialist Provider 05/30/20 09/07/20 Toni Sheth MD [address] [place] [address] Assigned Surgical Provider 05/30/20 04/18/21 [place] [address] [place] [address] Assigned PCP 07/27/20 04/25/21 Bonny Cooley MD [address] [place] [address] Assigned PCP 04/26/21 08/15/21 Bertram Elizabeth MD [address] [address] Assigned PCP 08/16/21 10/24/21 Alex Johnson MD [address] [place] [address] Assigned Rheumatology Provider 10/18/21 04/15/23 Bonny Cooley MD [address] [address] Assigned PCP 10/25/21 04/02/22 Bertram Elizabeth MD [address] [address] Assigned PCP 04/03/22 07/23/22 Bertram Elizabeth MD [address] [address] Assigned PCP 10/02/22 04/29/23 Alex Johnson MD [address] [place] [address] Rheumatology 10/04/24 Alex Johnson MD [address] [place] [address] Assigned Rheumatology Provider 10/28/24 documented as of this encounter
--- OUTSIDE RECORDS SUMMARY | 2025-03-06 17:50 | XMS_ITS | Encounter Summary ---
Author Organization [place] Address [address] [place] [address] Care Team Providers Care Hospital Monitor Name Role Phone Bettye Gonzales MD Unavailable + Bonny Cooley MD Primary Care Provider Antony Chakraborty MD Unavailable Mateo Cheema MD Unavailable [phone] Ermias Colón MD Unavailable Suzanne Fernández RN Unavailable [phone] Bonny Cooley MD Unavailable [phone] Bonny Cooley MD Unavailable [phone] Pam Hernandez MD Unavailable [phone] Lázaro Horowitz MD Unavailable Jaime Grover MD Unavailable [phone] Toni Sheth MD Unavailable Toni Sheth MD Unavailable Bertram Elizabeth MD Unavailable Bonny oColey MD Unavailable [phone] Aminata Youssef MD Primary Care Provider Bertram Elizabeth MD Unavailable [phone] Alex Johnson MD Unavailable Bonny Cooley MD Unavailable [phone] Bertram Elizabeth MD Unavailable [phone] Bertram Elizabeth MD Unavailable [phone] Alex Johnson MD Unavailable [phone] Alex Johnson MD Unavailable [phone] Encounter Details Date Type Department Care Team (Late st Contact Info) Description 02/15/[address] [facility] [address] [address] Ermias Colón MD [address] [place] [address] Social History Tobacco Use Types Packs/Day Years Used Date Smoking Tobacco: Former Cigarettes 2 3 0 04/23/1976 - 12/17/1977 Smokeless Tobacco: Never Alcohol Use Standard Drinks/Week Comments No 0 (1 standard drink = 0.6 oz pur e alcohol) Comments No Sex and Gender Information Value Date Recorded Sex Assigned at Female 08/28/2018 12:23 AM TOW PICKER Legal Sex Female 4:46 AM TOW PICKER Gender Identity Female 08/28/2018 12:23 AM TOW PICKER Sexual Orientation Straight 10/11/2019 2: 51 PM TOW PICKER documented as of this encounter Miscellaneous Notes * Telephone Encounter - Nolvia Townsend RN - 02/15/2018 2:13 PM CDT Pt notified that this was refilled. MARY KATE Lorenzana, RN [facility] documented in this encounter Plan of Treatment Upcoming Encounters Date Type Department Care Team (Late st Contact Info) Description 04/25/2025 1:30 PM CDT Office Visit [facility] [place] 65[address] [facility] [address] [place] [phone] Alex Johnson MD [address] [place] [address] documented as of this encounter Visit Diagnoses Not on filedocumented in this encounter Additional Health Concerns Infection Onset Date Last Indicated Resolved Time COVID-19 06/23/2020 06/23/2020 07/14/2020 11:4 0 PM TOW PICKER Recovered COVID 07/08/2020 07/08/2020 09/21/2020 1 1:39 PM TOW PICKER Assessment Noted Time PHQ-9 Depression Total Score: 12 018 7:15 AM CDT documented as of this encounter Care Teams Hospital Monitor Relationship Specialty Start Date End Date Bonny Cooley MD [address] [place] [address] PCP - General Family Practice 09/30/15 06/02/21 Bonny Cooley MD [address] [address] PCP - Assigned PCP 10/05/15 10/10/18 Aminata Youssef MD [facility] [address] [place] [address] PCP - General Internal Medicine 06/03/21 Bettye Gonzales MD Internal Medicine 04/10/15 Antony Chakraborty MD [address] [address] INTERNAL MEDICINE - ENDOCRINOLOGY, DIABETES & METABOLISM 11/13/15 Mateo Cheema MD [address] [address] Internal Medicine 08/06/16 Ermias Colón MD [address] [address] Referring Physician Neurology 09/23/16 Suzanne Fernández, [facility] Primary [facility] - [facility] 02/28/18 [place] [address] [place] [address] Assigned PCP 10/05/15 07/26/20 Pam Hernandez MD [address] [place] [address] [place] [address] Assigned Behavioral Health Provider 05/30/20 08/01/21 Lázaro Horowitz MD [facility] [address] [place] [address] Assigned Rheumatology Provider 05/30/20 07/19/20 Jaime Grover MD [address] [place] [address] Assigned Gastroenterology Provider 05/30/20 11/14/21 Toni Sheth MD [address] [place] [address] Assigned Pediatric Specialist Provider 05/30/20 09/07/20 Toni Sheth MD [address] [place] [address] Assigned Surgical Provider 05/30/20 04/18/21 Bertram Elizabeth MD [address] [address] Assigned PCP 07/27/20 04/25/21 Bonny Cooley MD [address] [address] Assigned PCP 04/26/21 08/15/21 Bertram Elizabeth MD [address] [place] [address] Assigned PCP 08/16/21 10/24/21 Alex Johnson MD [address] [place] [address] Assigned Rheumatology Provider 10/18/21 04/15/23 Bonny Cooley MD [address] [address] Assigned PCP 10/25/21 04/02/22 Bertram Elizabeth MD [address] [address] Assigned PCP 04/03/22 07/23/22 Bertram Elizabeth MD [address] [address] Assigned PCP 10/02/22 04/29/23 Alex Johnson MD [address] [place] [address] 977375 MD Rheumatology 10/04/24 Alex Johnson MD [address] [place] [address] [id number] Assigned Rheumatology Provider 10/28/24 documented as of this encounter
--- OUTSIDE RECORDS SUMMARY | 2025-03-06 17:50 | XMS_ITS | Encounter Summary ---
Author Organization [place] Address [address] [place] [address] Care Team Providers Care Agriscience Instructor Name Role Phone Bettye Gonzales MD Unavailable + Bonny Cooley MD Primary Care Provider [phone] Antony Chakraborty MD Unavailable Mateo Cheema MD Unavailable Ermias Colón MD Unavailable Suzanne Fernández RN Unavailable [phone] Bonny Cooley MD Unavailable [phone] Bonny Cooley MD Unavailable [phone] Pam Hernandez MD Unavailable [phone] Lázaro Horowitz MD Unavailable Jaime Grover MD Unavailable Toni Sheth MD Unavailable Toni Sheth MD Unavailable Bertram Elizabeth MD Unavailable Bonny Cooley MD Unavailable [phone] Aminata Youssef MD Primary Care Provider Bertram Elizabeth MD Unavailable [phone] Alex Johnson MD Unavailable [phone] Bonny Cooley MD Unavailable [phone] Bertram Elizabeth MD Unavailable [phone] Bertram Elizabeth MD Unavailable [phone] Alex Johnson MD Unavailable [phone] Alex Johnson MD Unavailable [phone] Reason for Visit * Reason Onset Date Comments Faintness 01/01/2017 Medication Question 01/01/2017 Lasix, and a rthritis/anti-depression med Encounter Details Date Type Department Care Team (Late st Contact Info) Description [place]/01[place]2017 [facility] [place] [address] [address] Bonny Cooley MD [facility] [address] [address] Faintness; Medication Question (Lasix, and... Social History Tobacco Use Types Packs/Day Years Used Date Smoking Tobacco: Never Smokeless Tobacco: Never Alcohol Use Standard Drinks/Week Comments No 0 (1 standard drink = 0.6 oz pur e alcohol) Comments No Sex and Gender Information Value Date Recorded Sex Assigned at Female 08/28/2018 12:23 AM RADIOLOGY SUPERVISOR Legal Sex Female 4:46 AM RADIOLOGY SUPERVISOR Gender Identity Female 08/28/2018 12:23 AM RADIOLOGY SUPERVISOR Sexual Orientation Straight 10/11/2019 2: 51 PM RADIOLOGY SUPERVISOR documented as of this encounter Miscellaneous Notes * Telephone Encounter - Nolvia Townsend RN - 01/04/2017 4:49 PM CDT Message to patient with info from Dr. Cooley as below. MARY KATE Lorenzana, RN [facility] [...] 1:30 PM CDT Office Visit [facility] [address] [address] Alex Johnson MD [address] [place] [address] documented as of this encounter Visit Diagnoses Diagnosis Generalized edema Edema documented in this encounter Additional Health Concerns Infection Onset Date Last Indicated Resolved Time COVID-19 06/23/2020 06/23/2020 07/14/2020 11:4 0 PM RADIOLOGY SUPERVISOR Recovered COVID 07/08/2020 07/08/2020 09/21/2020 1 1:39 PM RADIOLOGY SUPERVISOR Assessment Noted Time PHQ-9 Depression Total Score: 6 09/22/19 17 7:27 AM RADIOLOGY SUPERVISOR documented as of this encounter Care Teams Agriscience Instructor Relationship Specialty Start Date End Date Bonny Cooley MD [address] [place] [address] PCP - General Family Practice 09/30/15 06/02/21 Bonny Cooley MD [address] [address] PCP - Assigned PCP 10/05/15 10/10/18 Aminata Youssef MD [facility] [address] [place] [address] PCP - General Internal Medicine 06/03/21 Bettye Gonzales MD Internal Medicine 04/10/15 Antony Chakraborty MD [address] [address] MD INTERNAL MEDICINE - ENDOCRINOLOGY, DIABETES & METABOLISM 11/13/15 Mateo Cheema MD [address] [address] Internal Medicine 08/06/16 Ermias Colón MD [address] [address] Referring Physician Neurology 09/23/16 Suzanne Fernández, [facility] Career Development Facilitator Primary Care - CC 02/28/18 Bonny Cooley MD [address] [address] Assigned PCP 10/05/15 07/26/20 Pam Hernandez MD [address] [place] [address] [place] [address] Assigned Behavioral Health Provider 05/30/20 08/01/21 Lázaro Horowitz MD [address] [address]35 Assigned Rheumatology Provider 05/30/20 07/19/20 Jaime Grover MD [address] [place] [id number] Assigned Gastroenterology Provider 05/30/20 11/14/21 Toni Sheth MD [address] [place] [address] [phone] Assigned Pediatric Specialist Provider 05/30/20 09/07/20 Toni Sheth MD [address] [place] [address] [phone] Assigned Surgical Provider 05/30/20 04/18/21 Bertram Elizabeth MD [address] [address] Assigned PCP 07/27/20 04/25/21 Bonny Cooley MD [address] [address] Assigned PCP 04/26/21 08/15/21 Bertram Elizabeth MD [address] [place] [address] Assigned PCP 08/16/21 10/24/21 Alex Johnson MD [address] [place] [address] Assigned Rheumatology Provider 10/18/21 04/15/23 Bonny Cooley MD [address] [place] [address] Assigned PCP 10/25/21 04/02/22 Bertram Elizabeth MD [address] [place] [address] Assigned PCP 04/03/22 07/23/22 Bertram Elizabeth MD [address] [place] [address] Assigned PCP 10/02/22 04/29/23 Alex Johnson MD [address] [place] [address] Rheumatology 10/04/24 Alex Johnson MD [address] [place] [address] Assigned Rheumatology Provider 10/28/24 documented as of this encounter
--- OUTSIDE RECORDS SUMMARY | 2025-03-06 17:50 | XMS_ITS | Encounter Summary ---
Author Organization [place] Address [address] [place] [address] Care Team Providers Care Janitorial Cleaner Name Role Phone Bettye Gonzales MD Unavailable + Bonny Cooley MD Primary Care Provider Antony Chakraborty MD Unavailable Mateo Cheema MD Unavailable Ermias Colón MD Unavailable Suzanne Fernández RN Unavailable [phone] Bonny Cooley MD Unavailable [phone] Bonny Cooley MD Unavailable [phone] Pam Hernandez MD Unavailable [phone] Lázaro Horowitz MD Unavailable Jaime Grover MD Unavailable Toni Sheth MD Unavailable Toni Sheth MD Unavailable Bertram Elizabeth MD Unavailable Bonny Cooley MD Unavailable [phone] Aminata Youssef MD Primary Care Provider [phone] Bertram Elizabeth MD Unavailable +[phone] Alex Johnson MD Unavailable [phone] Bonny Cooley MD Unavailable [phone] Bertram Elizabeth MD Unavailable +[phone] Bertram Elizabeth MD Unavailable +1-6 Alex Johnson MD Unavailable [phone] Alex Johnson MD Unavailable [phone] Encounter Details Date Type Department Care Team (Late st Contact Info) Description 12/15/2016 [facility] Medical Advice [facility] Endocrinology [address] [facility] [address] [place] [address] Mateo Cheema MD 420 [facility] [address] [place] [address] Social History Tobacco Use Types Packs/Day Years Used Date Smoking Tobacco: Never Smokeless Tobacco: Never Alcohol Use Standard Drinks/Week Comments No 0 (1 standard drink = 0.6 oz pur e alcohol) Comments No Sex and Gender Information Value Date Recorded Sex Assigned at Female 08/28/2018 12:23 AM METALLOGRAPHIC TECHNICIAN Legal Sex Female 4:46 AM METALLOGRAPHIC TECHNICIAN Gender Identity Female 08/28/2018 12:23 AM METALLOGRAPHIC TECHNICIAN Sexual Orientation Straight 10/11/2019 2: 51 PM METALLOGRAPHIC TECHNICIAN documented as of this encounter Plan of Treatment Upcoming Encounters Date Type Department Care Team (Late st Contact Info) Description 04/25/2025 1:30 PM CDT Office Visit [facility] [address] [address] Alex Johnson MD 515 [facility] 88 [place] [address] documented as of this encounter Visit Diagnoses Not on filedocumented in this encounter Additional Health Concerns Infection Onset Date Last Indicated Resolved Time COVID-19 06/23/2020 06/23/2020 07/14/2020 11:4 0 PM METALLOGRAPHIC TECHNICIAN Recovered COVID 07/08/2020 07/08/2020 09/21/2020 1 1:39 PM METALLOGRAPHIC TECHNICIAN Assessment Noted Time PHQ-9 Depression Total Score: 6 09/22/19 17 7:27 AM METALLOGRAPHIC TECHNICIAN documented as of this encounter Care Teams Janitorial Cleaner Relationship Specialty Start Date End Date Bonny Cooley MD [address] [place] [address] PCP - General Family Practice 09/30/15 06/02/21 Bonny Cooley MD [address] [id number] PCP - Assigned PCP 10/05/15 10/10/18 Aminata Yosusef MD [facility] [address] [place] [address] PCP - General Internal Medicine 06/03/21 Bettye Gonzales MD Internal Medicine 04/10/15 Antony Chakraborty MD 420 [facility] [address] [place], [place] [address] INTERNAL MEDICINE - ENDOCRINOLOGY, DIABETES & METABOLISM 11/13/15 Mateo hCeema MD 420 [facility] [address] [place], [place] [address] Internal Medicine 08/06/16 Ermias Colón, MD 420 [facility] [address] [place], [place] [address] Referring Physician Neurology 09/23/16 Suzanne Fernández, RN Clinic Branch Logistics Supervisor Primary Care - CC 02/28/18 Bonny Cooley MD 2270 [facility] 200 [place] [address] Assigned PCP 10/05/15 07/26/20 Pam Hernandez MD [address] [place] [address] [place] [address] Assigned Behavioral Health Provider 05/30/20 08/01/21 Lázaro Horowitz MD [facility] [address] [place] [address] Assigned Rheumatology Provider 05/30/20 07/19/20 Jaime Grover MD [address] [place] [address] Assigned Gastroenterology Provider 05/30/20 11/14/21 Toni Sheth MD [address] [place] [address] Assigned Pediatric Specialist Provider 05/30/20 09/07/20 [place] [address] [place] [address] Assigned Surgical Provider 05/30/20 04/18/21 Bertram Elizabeth MD [address] [place] [address] Assigned PCP 07/27/20 04/25/21 Bonny Cooley MD 0 [facility] [address] [place] [address] Assigned PCP 04/26/21 08/15/21 Bertram Elizabeth MD [address] [place] [address] Assigned PCP 08/16/21 10/24/21 Alex Johnson MD [address] [place] [address] Assigned Rheumatology Provider 10/18/21 04/15/23 Bonny Cooley MD [address] [place] [address] Assigned PCP 10/25/21 04/02/22 Bertram Elizabeth MD [address] [place] [address] Assigned PCP 04/03/22 07/23/22 Bertram Elizabeth MD [address] [place] [address] Assigned PCP 10/02/22 04/29/23 Alex Johnson MD [address] [place] [address] Rheumatology 10/04/24 Alex Johnson MD [address] [place] [address] Assigned Rheumatology Provider 10/28/24 documented as of this encounter
--- OUTSIDE RECORDS SUMMARY | 2025-03-06 17:50 | XMS_ITS | Encounter Summary ---
Author Organization [place] Address [address] [place] [address] Care Team Providers Care Pouch Making Machine Operator Name Role Phone Bettye Gonzales MD Unavailable + Bonny Cooley MD Primary Care Provider Antony Chakraborty MD Unavailable Mateo Cheema MD Unavailable [phone] Ermias Colón MD Unavailable Suzanne Fernández RN Unavailable [phone] Bonny Cooley MD Unavailable [phone] Bonny Cooley MD Unavailable [phone] Pam Hernandez MD Unavailable [phone] Lázaro Horowitz MD Unavailable Jaime Grover MD Unavailable Toni Sheth MD Unavailable Toni Sheth MD Unavailable Bertram Elizabeth MD Unavailable Bonny Cooley MD Unavailable [phone] Aminata Youssef MD Primary Care Provider Bertram Elizabeth MD Unavailable +[phone] Alex Johnson MD Unavailable Bonny Cooley MD Unavailable [phone] Bertram Elizabeth MD Unavailable +[phone] Bertram Elizabeth MD Unavailable +1-6 Alex Johnson MD Unavailable Alex Johnson MD Unavailable [phone] Encounter Details Date Type Department Care Team (Late st Contact Info) Description 02/11/2018 [facility] [place] [address] [address] Kathryn Brenner Social History Tobacco Use Types Packs/Day Years Used Date Smoking Tobacco: Former Cigarettes 2 3 0 04/23/1976 - 12/17/1977 Smokeless Tobacco: Never Alcohol Use Standard Drinks/Week Comments No 0 (1 standard drink = 0.6 oz pur e alcohol) Comments No Sex and Gender Information Value Date Recorded Sex Assigned at Female 08/28/2018 12:23 AM FBI SHARPSHOOTER Legal Sex Female 4:46 AM FBI SHARPSHOOTER Gender Identity Female 08/28/2018 12:23 AM FBI SHARPSHOOTER Sexual Orientation Straight 10/11/2019 2: 51 PM FBI SHARPSHOOTER documented as of this encounter Plan of Treatment Upcoming Encounters Date Type Department Care Team (Late st Contact Info) Description 04/25/2025 1:30 PM CDT Office Visit [facility] [address] [address] Alex Johnson MD [address] [place] [address] documented as of this encounter Visit Diagnoses Not on filedocumented in this encounter Additional Health Concerns Infection Onset Date Last Indicated Resolved Time COVID-19 06/23/2020 06/23/2020 07/14/2020 11:4 0 PM FBI SHARPSHOOTER Recovered COVID 07/08/2020 07/08/2020 09/21/2020 1 1:39 PM FBI SHARPSHOOTER Assessment Noted Time PHQ-9 Depression Total Score: 12 018 7:15 AM CDT documented as of this encounter Care Teams Pouch Making Machine Operator Relationship Specialty Start Date End Date Bonny Cooley MD [address] [place] [address] PCP - General Family Practice 09/30/15 06/02/21 Bonny Cooley MD [address] [address] PCP - Assigned PCP 10/05/15 10/10/18 Aminata Youssef MD [facility] & [address] [address] PCP - General Internal Medicine 06/03/21 Bettye Gonzales MD Internal Medicine 04/10/15 Antony Chakraborty MD [address] [place] [address] [address] INTERNAL MEDICINE - ENDOCRINOLOGY, DIABETES & METABOLISM 11/13/15 Mateo Cheema MD 420 [facility] [address] [address] Internal Medicine 08/06/16 Ermias Colón MD 420 [facility] [address] [address] Referring Physician Neurology 09/23/16 Suzanne Fernández, RN Clinic Ad Operations Coordinator Primary Care - CC 02/28/18 Bonny Cooley MD [address] [address] Assigned PCP 10/05/15 07/26/20 Pam Hernandez MD [address] [place] [address] [place] [address] Assigned Behavioral Health Provider 05/30/20 08/01/21 Lázaro Horowitz MD [place] [address] [address] [place], [place] [address] Assigned Rheumatology Provider 05/30/20 07/19/20 Jaime Grover MD [address] [place] [address] Assigned Gastroenterology Provider 05/30/20 11/14/21 Toni Sheth MD [address] [place] [address] [phone] Assigned Pediatric Specialist Provider 05/30/20 09/07/20 Toni Sheth MD [address] [place] [address] Assigned Surgical Provider 05/30/20 04/18/21 Bertram Elizabeht MD [address] [address] Assigned PCP 07/27/20 04/25/21 Bonny Cooley MD [address] [place] [address] Assigned PCP 04/26/21 08/15/21 Bertram Elizabeth MD [address] [place] [address] Assigned PCP 08/16/21 10/24/21 Alex Johnson MD [address] [place] [address] Assigned Rheumatology Provider 10/18/21 04/15/23 Bonny Cooley MD [address] [place] [address] Assigned PCP 10/25/21 04/02/22 Bertram Elizabeth MD [address] [place] [address] Assigned PCP 04/03/22 07/23/22 Bertram Elizabeth MD [address] [place] [address] Assigned PCP 10/02/22 04/29/23 Alex Johnson MD [address] [place] [address] MD Rheumatology 10/04/24 Alex Johnson MD [address] [place] [address] Assigned Rheumatology Provider 10/28/24 documented as of this encounter
[2025-03-06 17:52] VITALS: BP 138/61; PULSE 61; RESP 16; TEMP 35.5; O2SAT 99; BMI 31.0
--- NOTE | 2025-03-06 17:58 | ED.GENADULT ---
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 She is brought to the ER today by EMS. She was waiting in line at a post office in standing long that she planned. She got so weak that she could not stand. Initial EMS blood pressure was 98 systolic and then 112 systolic. Blood sugar was 170. History from the patient and her daughter says that she generally is fairly sedentary. Today she was out doing errands and she went to the post office to male a package. However she brought her walker that does not have a seat. She was stuck standing at the post office for far longer than she anticipated she would have to wait. Apparently there was a line and that she needed a special device to get a labile for the package she wanted to send. She began to feel little bit weak and lightheaded. The post office personnel got her a bench to set on but it was a bit higher from the floor than normal. She was sitting with her feet hanging down. She began to feel weak and lightheaded. When her daughter arrived to pick her up she was just too weak to get off the bench so they called 911 to bring her in. She had no other symptoms. No chest pain. No palpitations. No shortness of breath. No headache. She has not been sick lately. No fever. No recent shortness of breath. No vomiting. No diarrhea. Normal appetite. No swelling in her legs. No focal numbness or weakness. However her daughter notes that she was clenching her right fist during the episode. The patient says she was just clenching her fist because of her arthritis. She has no history of seizures. Related Data Home Medications ?Medication ?Instructions ?Recorded ?Confirmed cholecalciferol (vitamin D3) 25 1,000 unit PO DAILY 06/08/22 12/27/24 mcg (1,000 unit) tablet magnesium oxide 400 mg (241.3 mg 400 mg PO DAILY 06/08/22 12/27/24 magnesium) tablet methotrexate sodium 2.5 mg tablet 2.5 mg PO .Every 7 Days 06/08/22 12/27/24 cranberry 2 tab PO DAILY 09/20/22 12/27/24 acetaminophen 500 mg tablet 250 mg PO Q6H PRN 11/01/22 12/27/24 (Tylenol Extra Strength) folic acid 1 mg tablet 4 mg PO DAILY 08/23/24 12/27/24 Previous Rx's ?Medication ?Instructions ?Recorded amlodipine 10 mg-benazepril 20 mg 1 cap PO DAILY #90 caps 12/27/24 capsule apixaban 5 mg tablet (Eliquis) 5 mg PO BID #180 tabs 12/27/24 atenolol 25 mg tablet 25 mg PO QAM #90 tabs 12/27/24 bupropion HCl 300 mg 24 hr tablet, 300 mg PO QAM #90 tabs 12/27/24 extended release Allergies Allergy/AdvReac Type Severity Reaction Status Date / Time milk Allergy Intermediate Verified 12/27/24 14:24 mold Allergy Verified 12/27/24 14:24 pollen extracts Allergy Verified 12/27/24 14:24 tree and shrub pollen Allergy Verified 12/27/24 14:24 PFSH PFS Medical History History of pulmonary embolism ?Z86.711 - Personal history of pulmonary embolism (ICD-10) History of DVT in adulthood ?Z86.718 - Personal history of other venous thrombosis and embolism (ICD-10) Surgical History History of parathyroidectomy (05/31/22) ?Z98.890 - Other specified postprocedural states (ICD-10) ?Z90.89 - Acquired absence of other organs (ICD-10) History of cholecystectomy (05/31/22) ?Z90.49 - Acquired absence of other specified parts of digestive tract (ICD-10) History of section (05/31/22) ?Z98.891 - History of uterine scar from previous surgery (ICD-10) Presence of right artificial knee joint (12/15/18) ?Z96.651 - Presence of right artificial knee joint (ICD-10) History of total knee replacement (2018) ?Z96.659 - Presence of unspecified artificial knee joint (ICD-10) History of parathyroidectomy (2012) ?E89.2 - Postprocedural hypoparathyroidism (ICD-10) History of cholecystectomy ?Z90.49 - Acquired absence of other specified parts of digestive tract (ICD-10) History of section ?Z98.891 - History of uterine scar from previous surgery (ICD-10) Family History Brain cancer Father High blood pressure Mother Thyroid disease Mother Social History (Updated 12/27/24 @ 15:40 by Willa Zavala ~ [facility]) What is your current living situation?: I presently have a place to live Problems where you live: no known problems Problems where you live details: see above In the past 12 months, utilities in danger of being shut off: no In past 12 months, lack of transportation kept you from medical appts, meetings, work, or getting things needed for daily living: yes In the past 12 mos, have been you worried that your food would run out before you had money to buy more?: never true In the past 12 mos, the food you bought just didn't last and you didn't have money to buy more?: never true Highest level of school completed/degree received: Bachelor's degree Smoking Status: Former smoker How often do you have a drink containing alcohol: never AUDIT-C Alcohol total score: 0 Non-prescribed substance use: denies use Caffeine: Yes (couple of cups a day) How often does anyone, including family, friends and others, physically hurt you: never How often does anyone, including family, friends and others, insult or talk down to you: rarely How often does anyone, including family, friends and others, threaten you with harm: never How often does anyone, including family, friends and others, scream or curse at you: never service: No Health Related Social Needs: transportation insecurity (Z59.82) and Other personal risk factors, not elsewhere classified (Z91.89) Exam Narrative: Exam Narrative: Constitutional: Appears well-developed and well-nourished. Alert. Conversant. Non toxic. HENT: Head: Atraumatic. Nose: Nose normal. Mouth/Throat: Oral mucosa is clear and moist. no trismus. Pharynx normal. Tonsils symmetric. No tonsillar enlargement, erythema, or exudate. Eyes: Conjunctivae normal. EOM normal. Pupils equal, round, and reactive to light. No scleral icterus. Neck: Normal range of motion. Neck supple. No tracheal deviation present. Cardiovascular: Normal rate, regular rhythm. No gallop. No friction rub. No murmur heard. Symmetric radial artery pulses Pulmonary/Chest: Effort normal. No stridor. No respiratory distress. No wheezes. No rales. No rhonchi . No tenderness. Abdominal: Soft. Bowel sounds normal. No distension. No mass. No tenderness. No rebound. No guarding. Musculoskeletal: RUE: Normal range of motion. No tenderness. No deformity LUE: Normal range of motion. No tenderness. No deformity RLE: Normal range of motion. No edema. No tenderness. No deformity LLE: Normal range of motion. No edema. No tenderness. No deformity Lymph: No cervical adenopathy. Neurological: Alert and oriented to person, place, and time. Normal strength. CN II-VII intact. No sensory deficit. GCS eye subscore is 4. GCS verbal subscore is 5. GCS motor subscore is 6. Normal coordination Skin: Skin is warm and dry. No rash noted. No pallor. Normal capillary refill. Psychiatric: Normal mood. Normal affect. Const: Vital Signs, click to edit/add: Vital Signs - 24 hr 03/06/25 17:52 Temperature 96 F L Pulse Rate [Pulse Oximeter] 61 Respiratory Rate 16 Blood Pressure [Ri t Upper Arm] 138/61 Pulse Oximetry 99 Oxygen Delivery Me thod Room Air Course Course ED Course: Recheck-continues to feel well. Completed her 500 mL of saline started by EMS. She is ambulatory in the hallway to make urine go to the bathroom. She uses a walker but can ambulate without assistance. She wants to discharge home. Vital Signs Vital signs: Initial Vital Signs Temperature 96 F L 03/06/25 17:52 Temperature Source Temporal Artery Scan 03/06/25 17:52 Pulse Rate 61 03/06/25 17:52 Respiratory Rate 16 03/06/25 17:52 Blood Pressure 138/61 03/06/25 17:52 Blood Pressure Mean 86 03/06/25 17:52 Blood Pressure Position Supine 03/06/25 17:52 Pulse Oximetry 99 03/06/25 17:52 Oxygen Delivery Method Room Air 03/06/25 17:52 Vital Signs Temperature 96 F L 03/06/25 17:52 Pulse Rate 61 03/06/25 17:52 Respiratory Rate 16 03/06/25 17:52 Blood Pressure 138/61 03/06/25 17:52 Pulse Oximetry 99 03/06/25 17:52 Oxygen Delivery Method Room Air 03/06/25 17:52 Temperature 96 F L 03/06/25 17:52 Pulse Rate 61 03/06/25 17:52 Respiratory Rate 16 03/06/25 17:52 Blood Pressure 138/61 03/06/25 17:52 Pulse Oximetry 99 03/06/25 17:52 Oxygen Delivery Method Room Air 03/06/25 17:52 Medical Decision Making MDM Narrative Medical decision making narrative: This patient presents for evaluation an episode that she got generalized weakness and inability to walk after she was standing for a long time at the post office. It sounds like she has a generally fairly restful in sedentary life so standing for an hour and then sitting on a bench is much more exertion than she normally would do. She was brought to the ER today by EMS, however she and her daughter both think that she just standing too long and does not have any other problems. A broad differential was considered. History provided suggests a benign cause of weakness. No murmurs . Initial ECG shows normal sinus rhythm and no dysrhythmogenic abnormality such as WPW, prolonged QT, Brugada syndrome, and no ischemia. No symptoms/findings concerning for cardiac ischemia or ACS . No headache or other focal neurologic deficitsto suggest stroke . She has not have any palpitations to suggest Atrial fibrillation, ventricular arrhythmia. No recent symptoms of thyroid disease. No recent fever, vomiting, diarrhea, or change in oral intake to suggest acute electrolyte abnormality. Differential would also anemia, heart disease, PE, among others. The patient and daughter both feel that she just was standing too long. They do not want any further workup. She is feeling back to normal now. She will be discharged without any further workup for labs or imaging. Precautions for return to the ER reviewed.. Questions answered and return precautions given ECG Data Attestation: I personally reviewed and interpreted this ECG as follows: Interpretation: Normal sinus rhythm Rate 65 IN interval 170 Normal QRS axis No ST segment elevation or depression QTC 447 Discharge Plan Discharge Clinical Impression: Weakness Patient Disposition: Home, Self-Care Condition: Stable Instructions: Weakness (ED) Additional Instructions: As we discussed, please return to the ER right away if you have any concerns especially more weakness, or any new symptoms such as fever, chest pain, shortness of breath, for palpitations. Prescriptions: No Action cranberry 2 tab PO DAILY amlodipine-benazepril 10-20 mg capsule 1 cap PO DAILY Qty: 90 3RF atenolol 25 mg tablet 25 mg PO QAM Qty: 90 3RF bupropion HCl 300 mg tablet extended release 24 hr 300 mg PO QAM Qty: 90 3RF Eliquis 5 mg tablet 5 mg PO BID Qty: 180 3RF methotrexate sodium 2.5 mg tablet 2.5 mg PO .Every 7 Days cholecalciferol (vitamin D3) 25 mcg (1,000 unit) tablet 1,000 unit PO DAILY magnesium oxide 400 mg (241.3 mg magnesium) tablet 400 mg PO DAILY acetaminophen [Tylenol Extra Strength] 500 mg tablet 250 mg PO Q6H PRN folic acid 1 mg tablet 4 mg PO DAILY Follow Up/Referrals: Aminata Youssef MD [Primary Care Provider, Internal Medicine] Stand Alone Forms: [employer] Info Instructions
== END 2025-03-06 19:17 | disposition home or self-care (01) ==
PROVIDERS: Emergency Provider Emergency Medicine; PCP Internal Medicine
DX: R53.1 Weakness (principal); R26.2 Difficulty in walking, not elsewhere classified
CPT/HCPCS: 99282; 99283

== ENCOUNTER 2025-05-08 20:17 | Outpatient (CLI) | payer MEDICARE, OTHER, SELFPAY | END 2025-05-08 20:18 | disposition home or self-care (01) | LOC: SLEEP 20:19 | PROVIDERS: PCP Internal Medicine; Visit Provider Internal Medicine | DX: G47.33 Obstructive sleep apnea (adult) (pediatric) (principal) | CPT/HCPCS: 95811 ==

== ENCOUNTER 2025-06-24 21:03 | Outpatient (CLI) | payer MEDICARE, OTHER, SELFPAY | END 2025-06-24 21:04 | disposition home or self-care (01) | LOC: SLEEP 21:05 | PROVIDERS: PCP Internal Medicine; Visit Provider Internal Medicine | DX: G47.33 Obstructive sleep apnea (adult) (pediatric) (principal) | CPT/HCPCS: 95811 ==